=== PATIENT | male | born 1975 | race Caucasian/White ===

== ENCOUNTER 2023-04-13 07:48 | Emergency (ER) | payer OTHER, SELFPAY ==
[2023-04-13 07:55] VITALS: BP 138/82; PULSE 53; RESP 16; TEMP 36.5; O2SAT 98; BMI 27.6
--- NOTE | 2023-04-13 08:24 | ECG_ITS ---
[facility] Test Date: 2023-04-13 Pat Name: ELIJAH WYLIE Department: Room: - Gender: Male [employer]: : 1975 Requested By: [id number] Order Number: [id number] Reading MD: SAEID SOLER Measurements Intervals [place] Rate: 49 P: 53 [place]: 166 QRS: 50 QRSD: 98 T: 57 QT: 468 QTc: 437 Interpretive Statements 1130 Sinus bradycardia 8102 Low QRS voltage in chest leads 9140 abnormal rhythm ECG No previous ECG available for comparison Electronically Signed On 04-14-2023 7:12:32 EST by SAEID SOLER
--- NOTE | 2023-04-13 08:24 | XR_ITS ---
The [address] [address] Patient Name: ELIJAH WYLIE MRN: [id number] date: 1975 Sex: M Assigned Patient Location: ER Current Patient Location: ER Accession/Order Number: [id number] Exam Date: 04/13/2023 08:43 Report Date: 04/13/2023 09:13 At the request of: MILLICENT COREAS Procedure: XR chest 1V EXAM: XR chest 1V HISTORY: . peripheral edema . COMPARISON: None. TECHNIQUE: Single view of the chest FINDINGS: Heart and vascularity are unremarkable. Lungs are free of focal infiltrates. EKG leads overlie the chest. XR/XR chest 1V IMPRESSION: No acute heart or lung disease identified. Electronically authenticated by: TARIQ ROMAN Date: 04/13/2023 09:13
--- NOTE | 2023-04-13 08:24 | ED.GENADUL1 ---
HPI - General Adult General Chief complaint: Extremity Injury, Lower Stated complaint: LOWER EXTREMITY SWELLING TO FEET/LEGS Time Seen by Provider: 04/13/23 08:18 Source: patient Mode of arrival: walk-in Limitations: no limitations History of Present Illness HPI narrative: [age] male presents for swelling in both lower extremities. It started in his feet and now goes up to his knees. He's had it for a few days and it's getting a little bit worse. No shortness of breath. He is not on a diuretic. Related Data Home Medications Medication Instructions Recorded Confirmed alprazolam 2 mg tablet mg 04/13/23 atorvastatin 80 mg tablet mg 04/13/23 diltiazem HCl 120 mg tablet mg 04/13/23 multivitamin with folic acid 400 tab PO 04/13/23 mcg tablet (Tab-A-Brennan) pregabalin 50 mg capsule mg 04/13/23 sucralfate 1 gram tablet 04/13/23 tadalafil 5 mg tablet mg 04/13/23 Previous Rx's Medication Instructions Recorded furosemide 40 mg tablet (Lasix) 40 mg PO DAILY #7 tabs 04/13/23 potassium chloride 20 mEq 20 meq PO DAILY #7 tabs 04/13/23 tablet,extended release(part/cryst) Allergies Allergy/AdvReac Type Severity Reaction Status Date / Time Sulfa (Sulfonamide Allergy Intermediate Verified 04/13/23 08:00 Antibiotics) NSAIDS (Non-Steroidal AdvReac Mild Verified 04/13/23 08:00 Anti-Inflamma bactrim Allergy Intermediate Uncoded 04/13/23 08:00 cecor Allergy Intermediate Uncoded 04/13/23 08:00 Review of Systems ROS Narrative A ten point review of systems is negative except as noted above. PFSH PFSH Social History Smoking status: Current every day smoker Exam Narrative Exam Narrative: Nurses note and vital signs reviewed and patient is not hypoxic. General: The patient appears well and in no apparent distress. Patient is resting comfortably on cart. Skin: Warm, dry, no pallor noted. There is no rash noted. Head: Normocephalic, atraumatic Eye: Normal conjunctiva, no drainage Ears, Nose, Mouth, and Throat: oral mucosa is moist. Nares patent. Cardiovascular: Regular Rate and Rhythm Respiratory: Patient is in no distress, no accessory muscle use, lungs are clear to auscultation, no wheezing, rales or rhonchi Back: non-tender GI: soft, nontender, nondistended Musculoskeletal: peripheral edema present in bilateral lower extremities, most significant in the feet. Pitting edema is present in the pretibial area distally. Neurological: A&O, normal speech Psychiatric: Cooperative Constitutional Vital Signs, click to edit/add: Last Vital Signs Temp 97.7 F 04/13/23 07:55 Pulse 53 L 04/13/23 07:55 Resp 16 04/13/23 07:55 BP 138/82 04/13/23 07:55 Pulse Ox 98 04/13/23 07:55 O2 Del Method Room Air 04/13/23 07:55 Course Vital Signs Vital signs: Vital Signs Temperature 97.7 F 04/13/23 07:55 Pulse Rate 53 L 04/13/23 07:55 Respiratory Rate 16 04/13/23 07:55 Blood Pressure 138/82 04/13/23 07:55 Pulse Oximetry 98 04/13/23 07:55 Oxygen Delivery Method Room Air 04/13/23 07:55 Temperature 97.7 F 04/13/23 07:55 Pulse Rate 53 L 04/13/23 07:55 Respiratory Rate 16 04/13/23 07:55 Blood Pressure 138/82 04/13/23 07:55 Pulse Oximetry 98 04/13/23 07:55 Oxygen Delivery Method Room Air 04/13/23 07:55 Medical Decision Making MDM Narrative Medical decision making narrative: his workup here is negative. He'll be discharged home on Lasix and potassium. He was instructed to elevate his legs and follow-up with his PCP. Treatment diagnosis and follow-up were discussed with the patient. Differential Diagnosis Differential Diagnosis: peripheral edema, acute kidney injury, heart failure Lab Data Lab results reviewed: Yes I reviewed the patient's lab results Labs: Lab Results 04/13/23 Range/Units 08:35 WBC 6.6 (4.0-11.0) 10^3/uL RBC 4.53 L (4.70-6.10) 10^6/uL Hgb 13.5 L (14.0-18.0) g/dL Hct 41.4 L (42.0-54.0) % MCV 91.4 (80.0-94.0) fL MCH 29.8 (25.9-34.0) pg MCHC 32.6 (29.9-35.2) g/dL RDW 17.3 H (11.0-15.0) % Plt Count 148 L (150-450) 10^3/uL MPV 13.4 (9.5-13.5) fL Neut % (Auto) 54.8 (43.0-75.0) % Lymph % (Auto) 30.5 (20.5-60.0) % [place] % (Auto) 7.5 (1.7-12.0) % Eos % (Auto) 5.3 (0.9-7.0) % Baso % (Auto) 1.7 (0.2-2.0) % Neut # (Auto) 3.6 (1.4-6.5) 10^3/uL Lymph # (Auto) 2.0 (1.2-3.8) 10^3/uL [place] # (Auto) 0.5 (0.3-0.8) 10^3/uL Eos # (Auto) 0.4 (0.0-0.7) 10^3/uL Baso # (Auto) 0.1 (0.0-0.1) 10^3/uL Abs Immat Gran (auto) 0.01 (0.00-0.03) 10^3/uL Imm/Tot Granulo (auto) 0.2 (0.0-0.5) % Sodium 144 (136-145) mmol/L Potassium 4.1 (3.5-5.1) mmol/L Chloride 107 (98-107) mmol/L Carbon Dioxide 29.0 (21.0-32.0) mmol/L Anion Gap 12.1 BUN 4.0 L (7.0-18.0) mg/dL Creatinine 0.66 L (0.70-1.30) mg/dL Est GFR ( Amer) >60 (>=60) Est GFR (Non-Af Amer) >60 (>=60) BUN/Creatinine Ratio 6.1 Glucose 100 (74-106) mg/dL Calcium 8.2 L (8.5-10.1) mg/dL Imaging Data Chest x-ray: Radiologist's impression: Procedure: XR chest 1V EXAM: XR chest 1V HISTORY: . peripheral edema . COMPARISON: None. TECHNIQUE: Single view of the chest FINDINGS: Heart and vascularity are unremarkable. Lungs are free of focal infiltrates. EKG leads overlie the chest. IMPRESSION: No acute heart or lung disease identified. Electronically authenticated by: TARIQ ROMAN Date: 04/13/2023 09:13 ECG Data Attestation: I personally reviewed and interpreted this ECG as follows: (EKG on my interpretation shows sinus rhythm with a rate of 49) Discharge Plan Discharge Chief Complaint: Extremity Injury, Lower Clinical Impression: Edema, peripheral Patient Disposition: Home, Self-Care Time of Disposition Decision: 10:11 Condition: Good Mode of Transportation: Private Vehicle Prescriptions / Home Meds: New furosemide [Lasix] 40 mg tablet 40 mg PO DAILY Qty: 7 0RF potassium chloride 20 mEq tablet,ER particles/crystals 20 meq PO DAILY Qty: 7 0RF No Action atorvastatin 80 mg tablet sucralfate 1 gram tablet diltiazem HCl 120 mg tablet alprazolam 2 mg tablet tadalafil 5 mg tablet pregabalin 50 mg capsule multivitamin with folic acid [Tab-A-Brennan] 400 mcg tablet PO Instructions: Leg Edema (ED) Additional Instructions: Elevate your legs when at rest Call your family doctor for follow-up Stand Alone Forms: Portal Instructions Referrals: MENG CARDENAS [Primary Care Provider] - 1 week
[2023-04-13 08:49] LABS: Basophils Absolute Auto 0.1 10^3/uL (0.0-0.1); Basophils Percent Auto 1.7 % (0.2-2.0); Eosinophils Absolute Auto 0.4 10^3/uL (0.0-0.7); Eosinophils Percent Auto 5.3 % (0.9-7.0); Hematocrit 41.4 % (42.0-54.0); Hemoglobin 13.5 g/dL (14.0-18.0); Immature Granulocytes Abs Auto 0.01 10^3/uL (0.00-0.03); Immature Granulocytes Pct Auto 0.2 % (0.0-0.5); Lymphocytes Percent Auto 30.5 % (20.5-60.0); Mean Corpuscular HGB Conc 32.6 g/dL (29.9-35.2); Mean Corpuscular Hemoglobin 29.8 pg (25.9-34.0); Mean Corpuscular Volume 91.4 fL (80.0-94.0); Mean Platelet Volume 13.4 fL (9.5-13.5); Monocytes Absolute Auto 0.5 10^3/uL (0.3-0.8); Monocytes Percent Auto 7.5 % (1.7-12.0); Neutrophils Absolute Auto 3.6 10^3/uL (1.4-6.5); Neutrophils Percent Auto 54.8 % (43.0-75.0); Platelet Count 148 10^3/uL (150-450); Red Blood Count 4.53 10^6/uL (4.70-6.10); Red Cell Distribution Width 17.3 % (11.0-15.0); White Blood Count 6.6 10^3/uL (4.0-11.0)
[2023-04-13 09:00] LABS: Anion Gap 12.1; BUN Creatinine Ratio 6.1; Calcium 8.2 mg/dL (8.5-10.1); Chloride 107 mmol/L (98-107); Estimated GFR (African America >60 (>=60); Estimated GFR (Non-African Ame >60 (>=60); Glucose 100 mg/dL (74-106); Potassium 4.1 mmol/L (3.5-5.1); Sodium 144 mmol/L (136-145)
== END 2023-04-13 10:33 | disposition home or self-care (01) ==
PROVIDERS: Emergency Provider Emergency Medicine; PCP Family Medicine
DX: R60.9 Edema, unspecified (principal); Z79.899 Other long term (current) drug therapy; F17.210 Nicotine dependence, cigarettes, uncomplicated
CPT/HCPCS: 36415; 71045; 80048; 85025; 93005; 99285

== ENCOUNTER 2023-10-07 15:13 | Emergency (ER) | payer OTHER, SELFPAY ==
[2023-10-07 15:31] VITALS: BP 153/95; PULSE 51; TEMP 36.9; O2SAT 97
--- NOTE | 2023-10-07 15:52 | CT_ITS ---
The [address] [address] Patient Name: ELIJAH WYLIE MRN: [id number] date: 1975 Sex: M Assigned Patient Location: ER Current Patient Location: ED.MAIN Accession/Order Number: [id number] Exam Date: 10/07/2023 18:00 Report Date: 10/07/2023 19:04 At the request of: MILLICENT COREAS Procedure: CT abdomen pelvis w con EXAM: CT scan of the abdomen and pelvis using 98 mL of IV iodinated contrast. Dose reduction technique used: Automated exposure control and/or adjustment of the mA and/or kV according to patient size and/or use of iterative reconstruction technique. REASON FOR EXAM: Upper abdominal pain, blood in stool COMPARISON: None FINDINGS: Gastric bypass. Normal appendix. No free fluid in the abdomen or pelvis. No free intraperitoneal air. No dilated or thickened loops of small bowel or colon. No hydronephrosis or obstructing renal or ureteral calculi. Liver, pancreas, spleen, bilateral kidneys, and bilateral adrenal glands are otherwise unremarkable. No lymphadenopathy in the abdomen or pelvis. Remainder unremarkable. CT/CT abdomen pelvis w con IMPRESSION: No acute abnormalities in the abdomen or pelvis. Electronically authenticated by: SANDEE LAURA Date: 10/07/2023 19:04
[2023-10-07 16:53] LABS: Basophils Absolute Auto 0.1 10^3/uL (0.0-0.1); Basophils Percent Auto 1.2 % (0.2-2.0); Eosinophils Absolute Auto 0.2 10^3/uL (0.0-0.7); Eosinophils Percent Auto 2.8 % (0.9-7.0); Hematocrit 40.6 % (42.0-54.0); Hemoglobin 13.4 g/dL (14.0-18.0); Immature Granulocytes Abs Auto 0.02 10^3/uL (0.00-0.03); Immature Granulocytes Pct Auto 0.2 % (0.0-0.5); Lymphocytes Percent Auto 35.1 % (20.5-60.0); Mean Platelet Volume 12.2 fL (9.5-13.5); Monocytes Absolute Auto 0.7 10^3/uL (0.3-0.8); Monocytes Percent Auto 7.9 % (1.7-12.0); Neutrophils Absolute Auto 4.5 10^3/uL (1.4-6.5); Neutrophils Percent Auto 52.8 % (43.0-75.0); Platelet Count 171 10^3/uL (150-450); Red Blood Count 4.46 10^6/uL (4.70-6.10); Red Cell Distribution Width 14.7 % (11.0-15.0); White Blood Count 8.6 10^3/uL (4.0-11.0)
[2023-10-07 17:14] LABS: BUN Creatinine Ratio 16.2; Calcium 8.7 mg/dL (8.5-10.1); Carbon Dioxide 29.9 mmol/L (21.0-32.0); Chloride 102 mmol/L (98-107); Estimated GFR (African America >60 (>=60); Estimated GFR (Non-African Ame >60 (>=60); Glucose 92 mg/dL (74-106); Potassium 3.9 mmol/L (3.5-5.1); Sodium 140 mmol/L (136-145)
--- NOTE | 2023-10-07 17:25 | ED_ITS ---
HPI - GI Bleed General Chief complaint: GI Bleed Stated complaint: passing blood clots in stool Time Seen by Provider: 10/07/23 15:43 Source: patient Mode of arrival: walk-in Limitations: no limitations History of Present Illness HPI Narrative: 48-year-old male presents to the emergency department for passing blood in his stool. He complains of very minimal upper abdominal pain. He is worried about an ulcer. He states that about 10 or 11 years ago he had gastric bypass surgery and subsequently he has had problems with ulcers. He states he cannot find a specialist to take care of him. He states that the surgeon who did his surgery at the [facility] retired and his replacement left as well. The blood is dark in color. He has not had any vomiting including no hematemesis. No fever or injury. Related Data Home Medications ?Medication ?Instructions ?Recorded ?Confirmed alprazolam 2 mg tablet mg 04/13/23 atorvastatin 80 mg tablet mg 04/13/23 diltiazem HCl 120 mg tablet mg 04/13/23 multivitamin with folic acid 400 tab PO 04/13/23 mcg tablet (Tab-A-Brennan) pregabalin 50 mg capsule mg 04/13/23 sucralfate 1 gram tablet 04/13/23 tadalafil 5 mg tablet mg 04/13/23 Previous Rx's ?Medication ?Instructions ?Recorded furosemide 40 mg tablet (Lasix) 40 mg PO DAILY #7 tabs 04/13/23 potassium chloride 20 mEq 20 meq PO DAILY #7 tabs 04/13/23 tablet,extended release(part/cryst) Allergies Allergy/AdvReac Type Severity Reaction Status Date / Time Sulfa (Sulfonamide Allergy Intermediate Verified 04/13/23 08:00 Antibiotics) NSAIDS (Non-Steroidal AdvReac Mild Verified 04/13/23 08:00 Anti-Inflamma bactrim Allergy Intermediate Uncoded 04/13/23 08:00 cecor Allergy Intermediate Uncoded 04/13/23 08:00 Review of Systems ROS Narrative A ten point review of systems is negative except as noted above. PFSH PFSH Social History Smoking status: Current every day smoker Exam Narrative Exam Narrative: Nurses note and vital signs reviewed and patient is not hypoxic. General: The patient appears well and in no apparent distress. Patient is resting comfortably on cart. Skin: Warm, dry, no pallor noted. There is no rash noted. Head: Normocephalic, atraumatic Eye: Normal conjunctiva, no drainage Ears, Nose, Mouth, and Throat: oral mucosa is moist. Nares patent. Cardiovascular: Regular Rate and Rhythm Respiratory: Patient is in no distress, no accessory muscle use, lungs are clear to auscultation, no wheezing, rales or rhonchi Back: non-tender GI: Minimal tenderness to palpation in the left upper quadrant without mass or distention. No lower abdominal tenderness. Musculoskeletal: The patient has no evidence of calf tenderness, no pitting edema, symmetrical pulses noted bilaterally Neurological: A&O, normal speech Psychiatric: Cooperative Constitutional Vital Signs, click to edit/add: Last Vital Signs Temp 98.4 F 10/07/23 15:31 Pulse 51 L 10/07/23 15:31 Resp 17 10/07/23 15:31 BP 153/95 H 10/07/23 15:31 Pulse Ox 97 10/07/23 15:31 Course Vital Signs Vital signs: Vital Signs Temperature 98.4 F 10/07/23 15:31 Pulse Rate 51 L 10/07/23 15:31 Respiratory Rate 17 10/07/23 15:31 Blood Pressure 153/95 H 10/07/23 15:31 Pulse Oximetry 97 10/07/23 15:31 Temperature 98.4 F 10/07/23 15:31 Pulse Rate 51 L 10/07/23 15:31 Respiratory Rate 17 10/07/23 15:31 Blood Pressure 153/95 H 10/07/23 15:31 Pulse Oximetry 97 10/07/23 15:31 MDM - GI Bleed MDM Narrative Medical decision making narrative: Blood tests are essentially normal. CT scan is pending and the patient is si gned out to Dr. Webster at change of shift. Differential Diagnosis Differential diagnosis: Likely esophageal varices, gastritis, Upper gastr ointestinal hemorrhage, Lower gastrointestinal hemorrhage and hematochezia Lab Data Attestation: I reviewed the patient's lab results. Labs: Lab Results 10/07/23 Range/Units 16:46 WBC 8.6 (4.0-11.0) 10^3/uL RBC 4.46 L (4.70-6.10) 10^6/uL Hgb 13.4 L (14.0-18.0) g/dL Hct 40.6 L (42.0-54.0) % MCV 91.0 (80.0-94.0) fL MCH 30.0 (25.9-34.0) pg MCHC 33.0 (29.9-35.2) g/dL RDW 14.7 (11.0-15.0) % Plt Count 171 (150-450) 10^3/uL MPV 12.2 (9.5-13.5) fL Neut % (Auto) 52.8 (43.0-75.0) % Lymph % (Auto) 35.1 (20.5-60.0) % [place] % (Auto) 7.9 (1.7-12.0) % Eos % (Auto) 2.8 (0.9-7.0) % Baso % (Auto) 1.2 (0.2-2.0) % Neut # (Auto) 4.5 (1.4-6.5) 10^3/uL Lymph # (Auto) 3.0 (1.2-3.8) 10^3/uL [place] # (Auto) 0.7 (0.3-0.8) 10^3/uL Eos # (Auto) 0.2 (0.0-0.7) 10^3/uL Baso # (Auto) 0.1 (0.0-0.1) 10^3/uL Abs Immat Gran (auto) 0.02 (0.00-0.03) 10^3/uL Imm/Tot Granulo (auto) 0.2 (0.0-0.5) % Sodium 140 (136-145) mmol/L Potassium 3.9 (3.5-5.1) mmol/L Chloride 102 (98-107) mmol/L Carbon Dioxide 29.9 (21.0-32.0) mmol/L Anion Gap 12.0 BUN 12.0 (7.0-18.0) mg/dL Creatinine 0.74 (0.70-1.30) mg/dL Est GFR ( Amer) >60 (>=60) Est GFR (Non-Af Amer) >60 (>=60) BUN/Creatinine Ratio 16.2 Glucose 92 (74-106) mg/dL Calcium 8.7 (8.5-10.1) mg/dL Discharge Plan Discharge Patient Disposition: Still a Patient
[2023-10-07] MEDS: PANTOPRAZOLE SODIUM 40 MG VIAL IV (18:59)
[2023-10-07 19:00] VITALS: BP 141/84; PULSE 45; O2SAT 97
[2023-10-07] MEDS: MORPHINE SULFATE 4 MG/ML VIAL IV (19:00)
[2023-10-07 21:17] VITALS: BP 136/66; PULSE 47; TEMP 36.6; O2SAT 97
== END 2023-10-07 21:18 | disposition home or self-care (01) ==
PROVIDERS: Emergency Medicine; Emergency Provider Internal Medicine; PCP Family Medicine
DX: K92.2 Gastrointestinal hemorrhage, unspecified (principal); Z98.84 Bariatric surgery status
CPT/HCPCS: 36415; 74177; 80048; 85025; 96374; 96375; 99285; Q9967

== ENCOUNTER 2023-11-13 11:26 | Emergency (ER) | payer OTHER, SELFPAY ==
[2023-11-13 11:32] VITALS: BP 141/90; PULSE 55; TEMP 36.8; O2SAT 98; BMI 27.2
--- OUTSIDE RECORDS SUMMARY | 2023-11-13 11:35 | XMS_ITS ---
Patient Summarization (C-CDA 2.1 CCD) Created on: November 13, 2023 ELIJAH WYLIE : 1975 Sex: Male Author Organization Sample organization Care Team Providers Care Chain Splitter Name Role Phone ALAEDEEN, FILI Unavailable Unavailable ALAEDEEN, FILI Unavailable Unavailable Reid, [facility] Primary Care Provider Reid, [facility] Primary Care Provider Reid, [facility] Primary Care Provider Unavailabl e Reid, [facility] Primary Care Provider Unavailabl e PROVIDER, UNKNOWN Attending Unavailable PROVIDER, UNKNOWN Admitting Unavailable REID, [facility] Primary Care Physician Reid, [facility] Primary Care Provider Reid, [facility] Primary Care Provider Unavailabl e Reid, [place] Unavailable Reid, [facility] Primary Care Provider Unavailabl e Unavailable Unavailable Reid, [facility] Primary Care Provider Unavailabl e REID, [facility] Primary Care Unavailable VICKI DEVI Attending Unavailable REID, [facility] Primary Care Unavailable KARUNA SHIN Attending Unavailable REID, [facility] Primary Care Unavailable ELIJAH WALKER Attending Unavailab le REID, [facility] Primary Care Unavailable REID, [facility] Primary Care Unavailable TARIQ GONZALEZ Attending Unavailable REID, [facility] Primary Care Unavailable KARUNA SHIN Attending Unavailable REID, [facility] Primary Care Unavailable KARUNA SHIN Attending Unavailable REID, [facility] Primary Care Unavailable VICKI DEVI Attending Unavailable REID, [facility] Primary Care Unavailable ELIJAH WALKER Attending Unavailab le REID, [facility] Primary Care Unavailable Reid DO, Meng Parsons Primary Care Provider Cole JANIC, Shanthi Unavailable [phone] Reid, Meng Flores Primary Care Provider Unavailliane Kirkland OTR/L, Evelin Unavailable Annamarie MERLOS, Lizandro Francisco Unavailable [phone] Garo MERLOS, Allyson Unavailable REID, [facility] Primary Care Unavailable JAZMINE ESTRELLA Referring Unavailab le REID, [facility] Primary Care Unavailable JAZMINE ESTRELLA Referring Unavailab le DELORES, JAZMINE DON Referring Unavailab le DELORES, JAZMINE DON Attending Unavailab le REID, [facility] PARSONS Primary Care Unavailable REID, MENG Flores Primary Care Unavailable COLE, SHANTHI Referring Unavailable REID, MENG Flores Primary Care Unavailable MISGigi, DR GLASS Primary Care Unavailable VANE Sanchez, DR SMITH Consulting Unavailable MILLICENT CORESA Attending Unavailable MILLICENT COREAS Admitting Unavailable MILLICENT COREAS Consulting Unavailable ODETTE LOUIS Consulting Unavailable TARIQ BRICE Consulting Unavailable Reid, DO Meng Flores. Primary Care Provider DO Theresa Moon Attending Provider [phone] MD Shereen Iyer Jr Emergency Provider MD Huy Dumont Admit Provider MD Huy Dumont Attending Provider [phone] Matt Motrip Attending Unavailable Traboulssi, Mourhaf Attending Unavailable Traboulkerryi, Mourhaf Attending Unavailable Traboulnargis, Mourhaf Attending Unavailable Matt, Master Attending Unavailable Phoenix Chavez Unavailable MD Nano Gates Attending Provider Madeline Fisher Unavailable MD Phoenix Chavez Attending Provider MD Phoenix Chavez Attending Provider Dimas Ferrer Unavailable THERESA MOON Attending Unavailable Phoenix Chavez Attending Unavailable Meng Mathews. Primary Care Unavailable Phoenix Chavez Admitting Unavailable Theresa Moon Admitting Unavailab Theresa Salvador Attending Unavailab Meng Dhillon. Primary Care Unavailable Phoenix Chavez Attending Unavailable Huy Dumont Admitting Unavailab Megan Adames Consulting Unavailable Meng Mathews. Primary Care Unavailable Benito Crawford Consulting Unavailable Tanya Hodge Consulting Unavailable Carlton Cote Consulting Unavail able Master Siegel Consulting Unavailable Rafa Saenz Consulting Unavailab Echo Byrd Consulting Unavailable Kaylie Jolley Consulting Unavailable Everardo Vargas Consulting Unavailab Nohemy Ramires Consulting Unavailable Odette Oden Consulting Unavailable Nallely Iqbal Consulting Unavailable Phoenix Chavez Consulting Unavailable Allergies Allergy Classification Reported Allergen(s) Allergy Type Date of Onset Reaction(s) Facility Cephalosporins (antibiotic) (5 sources) Cefaclor Drug Allergy Anaphylaxis, Hives [facility] NSAIDs (5 sources) NSAIDs Drug Allergy Other (See Comments) [facility] Sulfamethoxazole / Trimethoprim (5 sources) Sulfamethoxazole / Trimethoprim Drug Allergy [facility] Sulfonamides (antibiotic) (5 sources) Sulfonamides (Antibiotic) Drug Allergy Rash [facility] (20 sources) cefaclor; Translations: [CEFACLOR] Drug Allergy Anaphylaxis, Hives, Itching, Anaphylactic Shock [facility] Repository (7 sources) NSAIDs; Translations: [NSAIDS (NON-STEROIDAL ANTI-INFLAMMATORY DRUG)] Propensity to adverse reactions to drug (disorder) Other: See Comments [facility] Repository (20 sources) sulfamethoxazole / trimethoprim; Translations: [SULFAMETHOXAZOLE-T RIMETHOPRIM] Drug Allergy Rash, Other: See Comments [facility] Repository (12 sources) Sulfonamides (Antibiotic); Translations: [SULFA (SULFONAMIDE ANTIBIOTICS)] Propensity to adverse reactions to drug (disorder) 09-14-2 013 Rash [facility] Repository (20 sources) NSAIDs; Translations: [NSAIDS] Propensity to adverse reactions to drug Other (See Comments) [place] (20 sources) Sulfonamides (Antibiotic); Translations: [SULFA ANTIBIOTICS] Propensity to adverse reactions to drug 016 Rash [place], [place] (3 sources) SULFAMETHOXAZOLE W-TRIMETHOPRIM; Translations: [SULFAMETHOXAZOLE W-TRIMETHOPRIM] Propensity to adverse reactions to drug (disorder) [facility] Repository (20 sources) Sulfamethoxazole / Trimethoprim; Translations: [sulfamethoxazole-t rimethoprim] Drug Allergy rash [employer] Other (3 sources) Sulfonamides (Antibiotic); Translations: [sulfa drugs] Drug allergy Unknown (qualifier value) [facility] (20 sources) Acetaminophen / HYDROcodone Drug Allergy headaches [facility] Other (20 sources) Cefaclor; Translations: [Ceclor] Drug Allergy 023 rash [facility] Repository (2 sources) NSAIDs; Translations: [NSAIDs] Allergy to drug (finding) [facility] 250 DO Work Phone: (20 sources) Non-steroidal anti-inflammatory agent Drug allergy 016 Other (See Comments) [employer] Other (4 sources) Sulfonamides (Antibiotic) Propensity to adverse reactions to drug 016 Rash [facility] Work Phone: (2 sources) Non-steroidal anti-inflammatory agent Propensity to adverse reactions to drug [address] [facility] (1 source) Sulfamethoxazole / Trimethoprim Drug Allergy [facility] Repository (1 source) Sulfonamides (Antibiotic) Drug allergy (disorder) [facility] Repository (6 sources) Sulfamethoxazole; Translations: [sulfamethoxazole] Drug Allergy skin reaction [facility] (6 sources) Trimethoprim; Translations: [trimethoprim] Drug Allergy 09-11-2 023 skin reaction [facility] (6 sources) NSAIDS (Non-Steroidal Anti-Inflamma; Translations: [NSAIDS (Non-Steroidal Anti-Inflamma] Propensity to adverse reactions Unknown Reaction [facility] (1 source) Acetaminophen Drug Allergy [facility] Repository (1 source) HYDROcodone Drug Allergy 024 [facility] Repository Encounters Encounter Date Encounter Type Care Provider Facility Start: 09-13-2023 End: 09-13-2023 ambulatory THERESA MOON Not Available Start: 06-27-2023 End: 06-27-2023 ambulatory Meng Reid Other [employer] Other Start: 06-27-2023 Telephone encounter Meng Reid [facility] Start: 06-06-2023 End: 06-06-2023 ambulatory Meng Reid Other [employer] Other Start: 06-06-2023 Telephone encounter Meng Reid [facility] Start: 05-26-2023 End: 05-26-2023 ambulatory Meng Reid Other [employer] Other Start: 05-26-2023 Telephone encounter Meng Reid [facility] Start: 05-17-2023 End: 05-17-2023 ambulatory Meng Reid Other [employer] Other Start: 05-17-2023 Telephone encounter Meng Reid [facility] Start: 05-14-2023 Letter encounter Evelin Giang do OTR/L Work Phone: [facility] Start: 05-05-2023 End: 05-05-2023 ambulatory Dimas Ferrer Other [employer] Other Start: 05-05-2023 Office outpatient vi sit 15 minutes Dimas Ferrer [facility] Start: 04-14-2023 (PROC) PROCEDURE Dimas [facility] Start: 04-14-2023 End: 04-14-2023 ambulatory Dimas Ferrer Other [employer] Other Start: 04-13-2023 End: 04-13-2023 ambulatory Meng Reid Other [employer] Other Start: 04-13-2023 Telephone encounter Meng Reid [facility] Start: 04-04-2023 End: 04-04-2023 ambulatory Dimas Ferrer Other [employer] Other Start: 04-04-2023 Office consultation new/estab patient 60 min Dimas Ferrer [facility] Start: 04-04-2023 Telephone encounter Dimas Ferrer [facility] Start: 03-31-2023 End: 03-31-2023 ambulatory Phoenix Chavez Other [employer] Other Start: 03-31-2023 Postop follow up vis it related to original px Phoenix Chavez [facility] Start: 03-08-2023 End: 03-08-2023 ambulatory Meng Reid Other [employer] Other Start: 03-08-2023 Telephone encounter Meng Reid [facility] Start: 03-03-2023 End: 03-03-2023 ambulatory Meng Reid Other [employer] Other Start: 03-03-2023 Telephone encounter Meng Reid [facility] Start: 02-15-2023 End: 02-15-2023 ambulatory Phoenix Chavez Facility:[facility] Start: 02-15-2023 End: 02-15-2023 ambulatory DO Meng MLaura Mathews Work Phone: [facility] Work Phone: Start: 02-15-2023 End: 02-15-2023 Patient encounter procedure DO Meng Reid Work Phone: [facility] [place] Work Phone: Start: 02-14-2023 End: 02-14-2023 ambulatory Phoenix Chavez Other [employer] Other Start: 02-14-2023 Telephone encounter Phoenix Chavez [facility] Start: 02-10-2023 End: 02-10-2023 ambulatory Madeline Fisher Other [employer] Other Start: 02-10-2023 Postop follow up vis it related to original px Madeline Natalia [facility] Start: 02-09-2023 End: 02-09-2023 ambulatory Meng Reid Other [employer] Other Start: 02-09-2023 Telephone encounter Meng Reid [facility] Start: 02-08-2023 End: 02-08-2023 ambulatory Phoenix Chavez Other [employer] Other Start: 02-08-2023 Telephone encounter Phoenix Chavez [facility] Start: 02-07-2023 End: 02-07-2023 ambulatory Meng Reid Other [employer] Other Start: 02-07-2023 Telephone encounter Meng Reid [facility] Start: 02-03-2023 End: 02-03-2023 ambulatory Meng Reid Other [employer] Other Start: 02-03-2023 Telephone encounter Meng Reid [facility] Start: 01-28-2023 End: 01-28-2023 ambulatory Meng Reid Other [employer] Other Start: 01-28-2023 Telephone encounter Meng Reid [facility] Start: 01-27-2023 End: 01-27-2023 ambulatory Mourhaf Traboulssi Facility:[id number] Start: 01-27-2023 Patient encounter procedure Phoenix Chavez [facility] Start: 01-26-2023 ambulatory Mourhaf Traboulssi Faci lity:[id number] Start: 01-25-2023 Patient encounter procedure Phoenix Chavez [facility] Start: 01-25-2023 ambulatory Mourhaf Traboulssi Faci lity:[id number] Start: 01-25-2023 End: 01-25-2023 ambulatory Mourhaf Traboulssi Facility:[id number] Start: 01-25-2023 End: 01-27-2023 Evaluation and management of inpatient Phoenix Chavez Facility:[facility] Start: 01-24-2023 End: 01-27-2023 Evaluation and management of inpatient DO Meng Reid Work Phone: [facility] [place] [facility] Work Phone: Start: 01-24-2023 observation encounter DO Meng M. Reid Work Phone: [facility] Work Phone: Start: 01-24-2023 End: 01-24-2023 ambulatory DO Meng M. Reid Work Phone: [facility] Work Phone: Start: 01-24-2023 End: 01-24-2023 Patient encounter procedure DO Meng Reid Work Phone: [facility] [place] Work Phone: Start: 01-06-2023 End: 01-06-2023 ambulatory Meng Reid Other [employer] Other Start: 01-06-2023 Telephone encounter Meng Reid [facility] Start: 12-17-2022 Refill Meng limon DO Work Phone: Pediatric Urology Comment on above: Refill Request Start: 12-16-2022 Refill Jazmine Estrella DO Work Phone: Cardiology Comment on above: Refill Request Start: 12-02-2022 End: 12-02-2022 ambulatory Meng Reid Other [employer] Other Start: 12-02-2022 Telephone encounter Meng Reid [facility] Start: 11-02-2022 End: 11-02-2022 ambulatory Meng Reid Other [employer] Other Start: 11-02-2022 Telephone encounter Meng Reid [facility] Start: 10-27-2022 End: 10-27-2022 ambulatory Meng Reid Other [employer] Other Start: 10-27-2022 Office outpatient vi sit 25 minutes Meng Reid [facility] Start: 10-12-2022 End: 10-12-[address] DOCTOR WARD Facility: Start: 09-15-2022 End: 09-15-2022 ambulatory Meng Reid Other [employer] Other Start: 09-15-2022 Telephone encounter Meng Reid [facility] Start: 09-08-2022 End: 09-08-2022 Emergency department patient visit [facility] Start: 09-08-2022 End: 09-08-2022 Emergency department patient visit [facility] Comment on above: Laceration of forehe ad, initial encounter (Primary Dx); Acute alcoholic intoxication without complication (HCC); Anxiety state Start: 09-01-2022 End: 09-01-2022 ambulatory Meng Reid Other [employer] Other Start: 09-01-2022 Telephone encounter Meng Reid [facility] Start: 08-11-2022 Letter encounter Evelin Giang do OTR/L Work Phone: [facility] Start: 08-04-2022 End: 08-05-2022 ambulatory SHANTHI [facility] Start: 08-04-2022 End: 08-04-2022 Subsequent hospital visit by physician Lorraine Roland PT [facility] Comment on above: Arrived Start: 07-27-2022 End: 07-27-2022 ambulatory Meng Reid Other [employer] Other Start: 07-27-2022 Office outpatient vi sit 15 minutes Meng Reid [facility] Start: 07-21-2022 End: 07-21-2022 ambulatory MENG PARSONS REID Facility:[facility] Start: 07-21-2022 End: 07-21-2022 Patient encounter procedure Pharmacy Resident [facility] Work Phone: Cardiology Comment on above: Primary hypertension ; Mixed hyperlipidemia; Coronary artery disease involving chinik coronary artery of chinik heart without angina pectoris; ST elevation myocardial infarction involving right coronary artery (HCC); S/P right coronary artery (RCA) stent placement Start: 07-16-2022 End: 07-16-2022 ambulatory Meng Reid Other [employer] Other Start: 07-16-2022 Telephone encounter Meng Reid [facility] Start: 07-15-2022 End: 07-15-2022 ambulatory Meng Reid Other [employer] Other Start: 07-15-2022 Telephone encounter Meng Reid [facility] Start: 06-24-2022 End: 06-24-2022 ambulatory Meng Reid Other [employer] Other Start: 06-24-2022 Telephone encounter Meng Reid [facility] Start: 06-10-2022 End: 06-10-2022 ambulatory Meng Reid Other [employer] Other Start: 06-10-2022 Telephone encounter Meng Reid [facility] Start: 05-26-2022 End: 05-26-2022 ambulatory Meng Reid Other [employer] Other Start: 05-26-2022 Telephone encounter Meng Reid [facility] Start: 05-20-2022 End: 05-20-2022 ambulatory Meng Reid Other [employer] Other Start: 05-20-2022 Telephone encounter Meng Reid [facility] Start: 05-18-2022 End: 05-18-2022 ambulatory Meng Reid Other [employer] Other Start: 05-18-2022 Telephone encounter Meng Reid [facility] Start: 05-14-2022 End: 05-14-2022 ambulatory Meng Reid Other [employer] Other Start: 05-14-2022 Telephone encounter Meng Reid [facility] Start: 05-13-2022 End: 05-13-2022 Patient encounter procedure Jazmine Estrella DO Work Phone: Cardiology Comment on above: Coronary artery dise ase involving chinik coronary artery of chinik heart without angina pectoris (Primary Dx); Primary hypertension; Mixed hyperlipidemia; ST elevation myocardial infarction involving right coronary artery (HCC); S/P right coronary artery (RCA) stent placement Start: 05-13-2022 End: 05-13-2022 ambulatory MENG PARSONS REID Facility:[facility] Start: 05-04-2022 End: 05-04-2022 ambulatory Meng Reid Other [employer] Other Start: 05-04-2022 Office outpatient vi sit 25 minutes Meng Redi [facility] Start: 05-04-2022 Telephone encounter Meng Reid [facility] Start: 04-13-2022 End: 04-13-2022 ambulatory Meng Reid Other [employer] Other Start: 04-13-2022 Telephone encounter Meng Reid [facility] Start: 04-05-2022 End: 04-05-2022 ambulatory Meng Reid Other [employer] Other Start: 04-05-2022 Telephone encounter Meng Reid [facility] Start: 03-25-2022 End: 03-25-2022 ambulatory Meng Reid Other [employer] Other Start: 03-25-2022 Telephone encounter Meng Reid [facility] Start: 03-23-2022 End: 03-23-2022 Emergency department patient visit MENG M REID [facility] Start: 03-23-2022 End: 03-23-2022 Emergency department patient visit Vicki Devi DO Work Phone: [facility] ED Comment on above: Lumbar herniated dis c (Primary Dx); Injury of head, initial encounter; Cervical sprain, initial encounter; Sprain of right shoulder, unspecified shoulder sprain type, initial encounter Start: 02-15-2022 ambulatory Jeffreynamratagorge Marionargis Faci lity: Start: 02-02-2022 End: 02-02-2022 ambulatory Meng Reid Other [employer] Other Start: 02-02-2022 Telephone encounter Meng Reid [facility] Start: 01-28-2022 End: 01-28-2022 ambulatory Meng Reid Other [employer] Other Start: 01-28-2022 Telephone encounter Meng Reid [facility] Start: 01-27-2022 End: 01-27-2022 ambulatory Meng Reid Other [employer] Other Start: 01-27-2022 Office outpatient vi sit 25 minutes Meng Reid [facility] Start: 01-21-2022 End: 01-21-2022 ambulatory Meng Reid Other [employer] Other Start: 01-21-2022 Telephone encounter Meng Reid [facility] Start: 01-12-2022 End: 01-12-2022 ambulatory Meng Reid Other [employer] Other Start: 01-12-2022 Telephone encounter Meng Reid [facility] Start: 01-07-2022 End: 01-07-2022 ambulatory Meng Reid Other [employer] Other Start: 01-07-2022 Telephone encounter Meng Reid [facility] Start: 12-21-2021 Rx Renewal Master harvey MD Work Phone: [facility] 250 DO Work Phone: Start: 12-14-2021 Rx Renewal Master harvey MD Work Phone: [facility] 250 DO Work Phone: Start: 12-08-2021 End: 12-08-2021 ambulatory Meng Reid Other [employer] Other Start: 12-08-2021 Telephone encounter Meng Reid [facility] Start: 12-02-2021 End: 12-02-2021 Emergency department patient visit MENG M REID [facility] Start: 12-02-2021 End: 12-02-2021 Emergency department patient visit Karuna Shin MD Work Phone: [facility] ED Comment on above: Contusion of right k nee, initial encounter (Primary Dx); Acute pain of right knee Start: 11-11-2021 End: 11-11-2021 ambulatory Meng Reid Other [employer] Other Start: 11-11-2021 Telephone encounter Meng Reid [facility] Start: 11-09-2021 End: 11-09-2021 ambulatory Meng Reid Other [employer] Other Start: 11-09-2021 Telephone encounter Meng Reid [facility] Start: 11-03-2021 End: 11-03-2021 ambulatory Meng Reid Other [employer] Other Start: 11-03-2021 Telephone encounter Meng Reid [facility] Start: 10-28-2021 End: 10-28-2021 ambulatory Meng Reid Other [employer] Other Start: 10-28-2021 Office outpatient vi sit 25 minutes Meng Reid [facility] Start: 10-23-2021 End: 10-23-2021 Emergency department patient visit MENG M REID [facility] Start: 10-23-2021 End: 10-23-2021 Emergency department patient visit Elijah Walker DO Work Phone: [facility] ED Comment on above: Closed head injury, initial encounter (Primary Dx); Lumbar transverse process fracture, closed, initial encounter (HCC) Start: 09-23-2021 End: 09-23-2021 Emergency department patient visit [facility] Start: 09-23-2021 End: 09-23-2021 Emergency department patient visit [facility] ED Comment on above: Contusion of right h and, initial encounter (Primary Dx) Start: 09-11-2021 End: 09-11-2021 ambulatory Meng Reid Other [employer] Other Start: 09-11-2021 Telephone encounter Meng Reid [facility] Start: 09-08-2021 End: 09-08-2021 Emergency department patient visit [facility] Start: 09-08-2021 End: 09-08-2021 Emergency department patient visit Tariq Gonzalez MD Work Phone: [facility] Comment on above: Chest pain, unspecif ied type (Primary Dx) Start: 08-26-2021 End: 08-26-2021 ambulatory Meng Reid Other [employer] Other Start: 08-26-2021 Telephone encounter Meng Reid [facility] Start: 08-13-2021 End: 08-13-2021 ambulatory Meng Reid Other [employer] Other Start: 08-13-2021 Telephone encounter Meng Reid [facility] Start: 08-03-2021 End: 08-03-2021 Patient encounter procedure Crissy Mccain [facility] Start: 07-24-2021 End: 07-24-2021 ambulatory Meng Reid Other [employer] Other Start: 03-11-2022 Telephone encounter Meng Reid [facility] Start: 07-10-2021 End: 07-10-2021 ambulatory Mengidania FlorReid Other [employer] Other Start: 07-10-2021 Telephone encounter Mengidania FlorReid [facility] Start: 07-01-2021 End: 07-01-2021 Emergency department patient visit [facility] Start: 07-01-2021 End: 07-01-2021 Emergency department patient visit Karuna Shin MD Work Phone: [facility] ED Comment on above: Encounter for post s urgical wound check (Primary Dx) Start: 06-23-2021 End: 06-23-2021 ambulatory Mengidania FlorReid Other [employer] Other Start: 06-23-2021 Office outpatient vi sit 25 minutes Meng Reid [facility] Start: 06-23-2021 Telephone encounter Meng Florgles [facility] Start: 06-19-2021 End: 06-19-2021 Emergency department patient visit [facility] Start: 06-18-2021 End: 06-21-2021 Emergency department patient visit [facility] Start: 06-18-2021 End: 06-18-2021 Emergency department patient visit Vicki Devi DO Work Phone: [facility] Comment on above: Scrotal wall abscess (Primary Dx) Start: 05-15-2021 End: 05-15-2021 Emergency department patient visit [facility] Start: 02-24-2021 End: 02-24-2021 Emergency department patient visit Pj Werner MD Work Phone: [facility] Comment on above: Hemoptysis (Primary Dx); Chest pain, unspecified type; Shortness of breath Start: 01-24-2021 End: 01-24-2021 Emergency department patient visit [facility] ED Start: 11-08-2020 End: 11-08-2020 Emergency department patient visit Ana Bedoya DO [facility] Comment on above: Sprain of left ankle , unspecified ligament, initial encounter (Primary Dx) Start: 10-24-2020 End: 10-24-2020 Emergency department patient visit Karuna Shin MD Work Phone: [facility] Comment on above: Bronchitis (Primary Dx); Cough; Nasal congestion; Acute frontal sinusitis, recurrence not specified Start: 10-19-2020 End: 10-19-2020 Emergency department patient visit Ana Bedoya DO [facility] Start: 10-15-2020 End: 10-17-2020 Subsequent hospital visit by physician [facility] [address] [facility]ound Comment on above: Arrived Start: 10-15-2020 End: 10-15-2020 Emergency department patient visit Karuna Shin MD Work Phone: [facility] Comment on above: Atypical chest pain (Primary Dx); Abdominal pain, epigastric Start: 08-07-2020 End: 08-07-2020 Emergency department patient visit Pete Lugo Work Phone: [facility] Comment on above: Acute otitis externa of right ear, unspecified type (Primary Dx) Start: 04-01-2020 End: 04-01-2020 Emergency department patient visit Uziel Waters Work Phone: [facility] Comment on above: Sprain of left foot, initial encounter (Primary Dx) Start: 02-20-2020 End: 02-20-2020 Emergency department patient visit Karuna Shin Work Phone: [facility] Comment on above: Bronchitis (Primary Dx); Syncope and collapse Start: 02-19-2020 End: 02-19-2020 Emergency department patient visit Uziel Waters Work Phone: [facility] Comment on above: Bronchitis (Primary Dx); COVID-19 Start: 11-27-2019 End: 11-27-2019 ambulatory UNKNOWN PROVIDER Facility:[facility] Start: 11-01-2019 End: 11-01-2019 Emergency department patient visit Uziel Waters Work Phone: [facility] Comment on above: Pain, dental (Primar y Dx) Start: 05-19-2019 End: 05-19-2019 Emergency department patient visit Karuna Shin MD Work Phone: [facility] Comment on above: Status post amputati on (Primary Dx); Finger swelling Start: 04-17-2019 End: 04-17-2019 Emergency department patient visit Cuauhtemoc Mobley [facility] Comment on above: Postoperative pain ( Primary Dx) Start: 04-14-2019 End: 04-14-2019 Emergency department patient visit Ernestina Joseph Work Phone: [facility] Comment on above: Hand pain, right (Pr imary Dx); Essential hypertension; Amputation of finger without complication, subsequent encounter Start: 04-14-2019 End: 04-14-2019 Emergency department patient visit Ernestina Joseph Work Phone: [facility] Comment on above: Finger amputation, t raumatic, initial encounter (Primary Dx); Laceration of left middle finger, foreign body presence unspecified, nail damage status unspecified, sequela Start: 04-13-2019 End: 04-13-2019 Emergency department patient visit Deandre Torres Work Phone: [facility] Comment on above: Strain of right shou lder, initial encounter (Primary Dx) Start: 02-10-2018 End: 02-10-2018 Patient encounter [facility] Medical Equipment Procedure Code Equipment Code Equipment Origin al Text Equipment Identifier Dates Fmn-Rr-R-Kind Implant - [id number] Start: 11-26-2013 Stent Wallflex 2 3mm 18.5fr Low Profile Permalume 15cm 12cm Esophageal Braid - [id number] Start: 08-06-2017 Drug-eluting coronary artery stent, qen-[id number] lymer-coated ()[id number] [id number] FDA Start: 11-17-2020 Drug-eluting coronary artery stent, iaq-qrjyptgvfsdhc-vh lymer-coated ()[id number] FDA Start: 11-17-2020 Drug-eluting coronary artery stent, llc-nmxsloapqdkaj-wo lymer-coated ()[id number] [id number] FDA Start: 11-17-2020 Goals Date Patient Goal Desired Activity /State Immunizations Immunization Date Immunization Notes Care Provider Fa cility 05-16-2020 influenza, seasonal, injectable Evelin Szado OTR/L Work Phone: [facility] 05-16-2020 influenza virus vaccine, unspecified formulation Evelin Szado OTR/L Work Phone: [facility] 05-30-2019 influenza, injectable, quadrivalent, preservative free Evelin Szado OTR/L Work Phone: [facility] 03-20-2019 influenza, injectable, quadrivalent, contains preservative Meng Reid Other [employer] Other 08-29-2018 tetanus toxoid, reduced diphtheria toxoid, and acellular pertussis vaccine, adsorbed Jazmine Estrella DO Work Phone: [facility] 02-15-2018 influenza, injectable, quadrivalent, contains preservative Meng Reid Other [facility] 01-03-2010 tetanus and diphtheria toxoids, adsorbed, preservative free, for adult use (2 Lf of tetanus toxoid and 2 Lf of diphtheria toxoid) Crissy Mccain [facility] NEGATED: Highlighted row has not occurred!04-29-2016 influenza, injectable, quadrivalent, contains preservative Patient Objection Meng Reid Other [employer] Other Medications Current Medications Medication Drug Class(es) Dates Sig (Normalized) Sig (Original) acetaminophen 325 mg / HYDROcodone bitartrate 5 mg oral tablet (6 sources) Opioid Agonist Start: 12-02-2021 End: 12-06-2021 HYDROcodone-acetam inophen (NORCO) 5-325 MG per tablet Indications: Acute pain of right knee Take 1 tablet by mouth every 6 hours as needed for Pain for up to 4 days. Intended supply: 3 days. Take lowest dose possible to manage pain 12 tablet 0 12/02/2021 12/06/2021 Active Start: 12-02-2021 End: 12-02-2021 HYDROcodone-acetaminophen (N ORCO) 5-325 MG per tablet 1 tablet Start: 06-18-2021 End: 06-21-2021 HYDROcodone-acetaminophen (N ORCO) 5-325 MG per tablet Indications: Scrotal wall abscess Take 1 tablet by mouth every 4-6 hours as needed for Pain for up to 3 days. Intended supply: 3 days. Take lowest dose possible to manage pain 15 tablet 0 06/18/2021 06/21/2021 Active Start: 08-07-2020 End: 08-10-2020 take 1 tablet by mouth every four hours as needed for pain, then take 1 tablet by mouth as needed for pain HYDROcodone-acetaminophen (NORCO) 5-325 MG per tablet Indications: Acute otitis externa of right ear, unspecified type Take 1 tablet by mouth every 4 hours as needed for Pain for up to 3 days. Intended supply: 3 days. Take lowest dose possible to manage pain 9 tablet 0 08/07/2020 08/10/2020 Active Start: 08-07-2020 End: 08-07-2020 HYDROcodone-acetaminophen (N ORCO) 5-325 MG per tablet 1 tablet Start: 05-19-2019 End: 05-23-2019 take 1 tablet by mouth every six hours as needed for pain HYDROcodone-acetaminophen (NORCO) 5-325 MG per tablet Indications: Status post amputation , Finger swelling Take 1 tablet by mouth every 6 hours as needed for Pain for up to 4 days. 12 tablet 0 05/19/2019 05/23/2019 Active acetaminophen 325 mg / oxyCODONE hydrochloride 5 mg oral tablet (8 sources) Opioid Agonist Start: 03-23-2022 End: 03-23-2022 oxyCODONE-acetaminophen (PERCOCET) 5-325 MG per tablet Indications: Lumbar herniated disc Take 1 tablet by mouth every 6 hours as needed for Pain for up to 3 days. Intended supply: 3 days. Take lowest dose possible to manage pain 15 tablet 0 03/23/2022 03/23/2022 Discontinued (ERROR) Start: 11-08-2020 End: 11-09-2020 oxyCODONE-acetaminophen (PER COCET) 5-325 MG per tablet Indications: Sprain of left ankle, unspecified ligament, initial encounter Take 1 tablet by mouth every 6 hours as needed for Pain for up to 1 day. Intended supply: 1 days. Take lowest dose possible to manage pain 4 tablet 0 11/08/2020 11/09/2020 Active Start: 11-08-2020 End: 11-08-2020 oxyCODONE-acetaminophen (PER COCET) 5-325 MG per tablet 1 tablet Start: 04-14-2019 End: 04-14-2019 oxyCODONE-acetaminophen (PER COCET) 5-325 MG per tablet 2 tablet Start: 04-13-2019 End: 04-20-2019 take 1-2 tablets by mouth every six hours as needed for pain, then take 1 tablet by mouth as needed for pain oxyCODONE-acetaminophen (PERCOCET) 5-325 MG per tablet Indications: Postoperative pain Take 1-2 tablets by mouth every 6 hours as needed for Pain for up to 3 days. Intended supply: 3 days. Take lowest dose possible to manage pain 24 tablet 0 04/17/2019 04/20/2019 Active [id number] actuat albuterol 0.09 mg/actuat metered dose inhaler (17 sources) beta2-Adrenergic Agonist Start: 02-19-2020 take 2 puff(s) by inhalation every six hours as needed for wheezing albuterol sulfate HFA (PROAIR HFA) 108 (90 Base) MCG/ACT inhaler Inhale 2 puffs into the lungs every 6 hours as needed for Wheezing 1 Inhaler 0 02/19/2020 Active Start: 02-19-2020 End: 02-26-2020 take 2 puff(s) by inhalation every six hours as needed for wheezing albuterol sulfate HFA (PROAIR HFA) 108 (90 Base) MCG/ACT inhaler Inhale 2 puffs into the lungs every 6 hours as needed for Wheezing 1 Inhaler 0 02/19/2020 Active albuterol sulfate HFA (PROAIR HFA) 108 (90 Base) MCG/ACT inhaler (1 source) Start: 02-19-2020 take 2 puff(s) by inhalation every six hours as needed for wheezing albuterol sulfate HFA (PROAIR HFA) 108 (90 Base) MCG/ACT inhaler Inhale 2 puffs into the lungs every 6 hours as needed for Wheezing 1 Inhaler 0 02/19/2020 Active ALPRAZolam 2 mg oral tablet (20 sources) Benzodiazepine Start: 06-27-2023 take 1 tablet by mouth twice daily as needed for anxiety Xanax 2 MG 1 tablet PRN Orally twice a day PRN anxiety for 30 days Jun, Active Start: 05-26-2023 take 1 tablet by cristobal twice daily as needed for anxiety Xanax 2 MG 1 tablet PRN Orally twice a day PRN anxiety for 30 days May, Active Start: 04-29-2023 take 1 tablet by cristobal twice daily as needed for anxiety Xanax 2 MG 1 tablet PRN Orally twice a day PRN anxiety for 30 days Apr, Active Start: 04-04-2023 take 1 tablet by cristobal twice daily as needed for anxiety Start: 03-08-2023 take 1 tablet by cristobal twice daily as needed for anxiety Xanax 2 MG 1 tablet PRN Orally twice a day PRN anxiety for 30 days Feb, Active Start: 02-04-2023 take 1 tablet by cristobal twice daily as needed for anxiety Xanax 2 MG 1 tablet PRN Orally twice a day PRN anxiety for 30 days Jan, Active Start: 01-06-2023 take 1 tablet by cristobal twice daily as needed for anxiety Xanax 2 MG 1 tablet PRN Orally twice a day PRN anxiety for 30 days Dec, Active Start: 12-02-2022 take 1 tablet by cristobal twice daily as needed for anxiety Xanax 2 MG 1 tablet PRN Orally twice a day PRN anxiety for 30 days Nov, Active Start: 11-02-2022 take 1 tablet by cristobal twice daily as needed for anxiety Xanax 2 MG 1 tablet PRN Orally twice a day PRN anxiety for 30 days Oct, Active Start: 10-07-2022 take 1 tablet by cristobal twice daily as needed for anxiety Xanax 2 MG 1 tablet PRN Orally twice a day PRN anxiety for 30 days September, Active Start: 06-24-2021 take 1 tablet by cristobal th three times daily as needed for anxiety alprazolam 1 mg Tab 1 mg = 1 tab(s), Oral, TID, PRN for anxiety Start Date: 06/24/21 Status: Ordered Start: 11-18-2020 take 1 tablet by cristobal th twice daily as needed for anxiety Alprazolam Active 2 MG PO Twice daily November 18, 2020 12:00am TAKE 1 TABLET BY MOUTH TWICE DAILY NEEDED FOR ANXIETY Start: 04-16-2019 take 1 tablet by cristobal th twice daily as needed for anxiety Xanax 1 MG 1 tablet PRN Orally twice a day PRN anxiety for 30 day(s) September, Active Start: 09-01-2016 take 0.5 mg by mouth every twenty-four hours as needed ALPRAZolam (XANAX) 1 mg tablet 0.5 mg at bedtime as needed. 0 09/01/2016 Active take 1 tablet by cristobal th once daily as needed for sleep ALPRAZolam (XANAX) 0.5 MG tablet Take 0.5 mg by mouth nightly as needed for Sleep.. 0 Active Comment on above: 0.5 mg at bedtime as needed. amoxicillin 875 mg / clavulanate 125 mg oral tablet (18 sources) Penicillin-class Antibacterial Start: 07-28-19 take 1 tablet by mouth every twelve hours antibiotic pt unsure of name for 10 days (1 source) Start: 06-02-19 antibiotic pt unsure of name for 10 days antibiotic pt unsure of name for 10 days, Oral, BID, infection Start Date: 06/02/15 Status: Ordered apixaban (1 source) Factor Xa Inhibitor End: 02-25-20 21 Apixaban (ELIQUIS PO) Take by mouth 0 02/24/2021 Discontinued (LIST CLEANUP) aspirin 81 mg oral capsule (20 sources) Platelet Aggregation Inhibitor, Nonsteroidal Anti-inflammatory Drug Start: 06-24-19 take 1 capsule by mouth every four hours aspirin 81 mg oral capsule 81 mg = 1 cap(s), Oral, q4hr Start Date: 06/24/21 Status: Ordered Start: 11-21-2020 take 1 tablet by critsobal th once daily Aspirin (Children's Aspirin) 81 mg Tablet,Chewable Active 81 MG PO Daily 0 November 21, 2020 12:00am take 1 tablet by cristobal th once daily take 1 tablet by cristobal th once daily aspirin, enteric coated (ASPIRIN, ENTERIC COATED) 81 mg EC tablet Take 81 mg by mouth once daily. 0 Active Comment on above: Take 81 mg by mouth once daily. atorvastatin 80 mg oral tablet (20 sources) HMG-CoA Reductase Inhibitor Start: 11-22-19 End: 03-17-20 take 1 tablet by mouth once daily in the evening Atorvastatin (Lipitor) 80 mg tablet Active 80 MG PO Every evening December 11, 2020 4:50pm Comment on above: Take 80 mg by mouth once daily. Take 1 tablet by cristobal th once daily. azithromycin 250 mg oral tablet (2 sources) Macrolide Antimicrobial Start: 02-19-20 End: 02-29-20 take 2 tablets by mouth once daily azithromycin (ZITHROMAX Z-JESSE) 250 MG tablet Indications: Bronchitis , COVID-19 TAKE 500MG PO DAY ONE... 250MG PO DAY TWO THROUGH FIVE DISPENSE 6 TABS NO REFILLS 1 packet 0 02/19/2020 02/29/2020 Active baclofen 5 mg oral tablet (20 sources) gamma-Aminobutyric Acid-ergic Agonist take 1 tablet by mouth every twelve hours take 1 tablet by mouth every eig ht hours Comment on above: Take by mouth. cephalexin 500 mg oral capsule (20 sources) Cephalosporin Antibacterial Start: 3 take 500 mg by mouth three times daily Cephalexin Active 500 MG PO Three times daily January 27, 2023 12:00am Chantix Starting Month Jesse 0.5 MG X 11 & 1 MG X 42 (9 sources) Start: 3 Chantix Starting Month Jesse 0.5 MG X 11 & 1 MG X 42 as directed Orally as directed for 30 days May, Active clindamycin 300 mg oral capsule (20 sources) Lincosamide Antibacterial Start: 2 take 1 capsule by mouth every eight hours Clindamycin HCl 300 MG 1 capsules Orally every 8 hrs for 7 day(s) Jun, Active Start: 06-18-2021 End: 06-28-2021 take 1 capsule by mouth three times daily clindamycin (CLEOCIN) 300 MG capsule Take 1 capsule by mouth 3 times daily for 10 days 30 capsule 0 06/18/2021 06/28/2021 Active Start: 06-18-2021 End: 06-18-2021 clindamycin (CLEOCIN) capsul e 300 mg Start: 08-07-2020 End: 08-07-2020 clindamycin (CLEOCIN) capsul e 150 mg Start: 11-01-2019 End: 11-11-2019 take 1 capsule by mouth four times daily clindamycin (CLEOCIN) 300 MG capsule Take 1 capsule by mouth 4 times daily for 10 days 40 capsule 0 11/01/2019 11/11/2019 Active Start: 05-30-2019 End: 08-17-2020 take 1 capsule by mouth three times daily clindamycin (CLEOCIN) 300 MG capsule Take 1 capsule by mouth 3 times daily for 10 days 30 capsule 0 08/07/2020 08/17/2020 Active Start: 04-14-2019 End: 04-14-2019 clindamycin (CLEOCIN) 600 mg in dextrose 5 % 50 mL IVPB cyclobenzaprine hydrochloride 10 mg oral tablet (20 sources) Muscle Relaxant Start: 01-27-2023 take 10 mg by mouth three times daily Cyclobenzaprine Active 10 MG PO Three times daily January 27, 2023 12:00am Start: 03-23-2022 End: 03-23-2022 take 1 tablet by mouth three times daily as needed for muscle spasms cyclobenzaprine (FLEXERIL) 10 MG tablet Take 1 tablet by mouth 3 times daily as needed for Muscle spasms 15 tablet 0 03/23/2022 03/23/2022 Discontinued (ERROR) Start: 06-24-2021 take 1 tablet by cristobal th three times daily as needed for muscle spasms cyclobenzaprine 10 mg Tab 10 mg = 1 tab(s), Oral, TID, PRN for spasm Start Date: 06/24/21 Status: Ordered Start: 12-18-2020 End: 01-24-2023 take 10 mg by mouth once daily at bedtime Cyclobenzaprine Discontinued 10 MG PO Daily at bedtime December 18, 2020 12:00am January 24, 2023 11:24pm Start: 04-13-2019 End: 04-23-2019 take 1 tablet by mouth three times daily as needed for muscle spasms cyclobenzaprine (FLEXERIL) 10 MG tablet Take 1 tablet by mouth 3 times daily as needed for Muscle spasms 30 tablet 0 04/13/2019 04/23/2019 Active Start: 02-27-2014 take 1 tablet by cristobal th every eight hours as needed for muscle spasms cyclobenzaprine (FLEXERIL) 10 mg tablet Indications: Displacement of lumbar intervertebral disc without myelopathy Take 1 tablet by mouth every 8 hours as needed for Muscle Spasm. 60 tablet 0 02/27/2014 Active Comment on above: Take 1 tablet by cristobal th every 8 hours as needed for Muscle Spasm. dilTIAZem hydrochloride 120 mg oral tablet (20 sources) Calcium Channel Derek Start: 06-24-2021 take 1 mg by mouth three times daily diltiazem 120 mg oral tablet mg tab(s), Oral, TID Start Date: 06/24/21 Status: Ordered Start: 12-18-2020 End: 01-27-2023 take 120 mg by mouth once daily Diltiazem Hcl Disconti nued 120 MG PO Daily December 18, 2020 12:00am January 27, 2023 9:01am take 1 tablet by cristobal once daily Comment on above: Take 120 mg by mouth once daily. docusate sodium 100 mg oral capsule (5 sources) Start: 10-24-19 take 1 capsule by mouth twice daily docusate sodium (COLACE) 100 mg capsule Take 1 capsule by mouth 2 times daily 30 capsule 0 10/23/2021 Active doxycycline monohydrate 100 mg oral tablet (1 source) Tetracycline-class Drug Start: 05-19-19 End: 05-29-19 take 1 tablet by mouth twice daily doxycycline monohydrate (ADOXA) 100 MG tablet Take 1 tablet by mouth 2 times daily for 10 days May substitute another form of Doxycycline if insurance requires. 20 tablet 0 05/19/2019 05/29/2019 Active Ergocalciferol (20 sources) Provitamin D2 Compound Start: 06-24-19 ergocalciferol Oral, Refills(s) 0 Start Date: 06/24/21 Status: Ordered Start: 12-18-2020 Ergocalciferol (Vitamin D2) Active 1250 MCG PO Th@0900 December 18, 2020 12:00am take 1 capsule by mo uth every week take 1.25 mg by mout h every week vitamin D (ERGOCALCIFEROL) 1.25 MG (19895 UT) CAPS capsule Take 50,000 Units by mouth once a week 0 Active furosemide 40 mg oral tablet (5 sources) Loop Diuretic take 1 tablet by mouth every twenty-four hours Lasix 40 MG 1 tablet Orally Once a day for 30 days Active gabapentin 300 mg oral capsule (1 source) Anti-epileptic Agent Start: take 1 capsule by mouth three times daily gabapentin (NEURONTIN) 300 MG capsule Take 1 Capsule by mouth 3 times daily for 30 days. 90 Capsule 3 04/24/2019 Active levoFLOXacin 500 mg oral tablet (1 source) Quinolone Antimicrobial Start: End: take 1 tablet by mouth once daily levoFLOXacin (LEVAQUIN) 500 MG tablet Take 1 tablet by mouth daily for 10 days 10 tablet 0 10/24/2020 11/03/2020 Active lisinopril 5 mg oral tablet (20 sources) Angiotensin Converting Enzyme Inhibitor Start: End: take 1 tablet by mouth once daily Lisinopril (Zestril) 5 mg tablet Active 5 MG PO Daily December 11, 2020 4:50pm Multiple Vitamins-Minerals (THERAPEUTIC MULTIVITAMIN-MINERAL S) tablet (10 sources) take 1 tablet by mouth once daily Multiple Vitamins-Minerals (THERAPEUTIC MULTIVITAMIN-MINERA LS) tablet Take 1 tablet by mouth daily 0 Active Multivitamin preparation (20 sources) Start: take 1 tablet by mouth once daily Multivitamin Active 1 TAB PO Daily December 18, 2020 12:00am take 1 tablet by mouth once edwardo y take 1 tablet by mouth once edwardo y Multivitamin - 1 tablet Orally Once a day for 90 day(s) Active take 1 tablet by mouth once edwardo y Multivitamin - 1 tablet Orally Once a day for 30 day(s) Active Nitroglycerin (20 sources) Nitrate Vasodilator Start: 06-24-2021 nitroglyce rin Refills(s) 0 Start Date: 06/24/21 Status: Ordered Start: 12-12-2020 End: 01-24-2023 apply 0.2 mg transdermal route every hour, then apply 1 dose transdermal route every twenty-four hours Nitroglycerin (Nitro-Dur) 0.2 mg/hr patch 24 hour Discontinued 1 PATCH TRANSDERML Daily December 12, 2020 12:00am January 24, 2023 11:26pm allow nitrate-free interval of approx. 10-12 hrs per 24-hour period Start: 11-21-2020 Nitroglycerin (Nitrostat) 0.4 mg tablet, sublingual Active 0.4 MG SUBLINGUAL Q5M November 21, 2020 12:00am do not exceed 3 doses per episode Comment on above: Dissolve 0.4 mg unde r the tongue every 5 minutes as needed for chest pain. nitroglycerin 0.4 mg SubL Carbon (1 source) Start: nitroglycerin 0.4 mg SubL Carbon mg spray(s), SubLingual, q5min, Refills(s) 0 Start Date: 06/24/21 Status: Ordered ondansetron 8 mg oral tablet (20 sources) Serotonin-3 Receptor Antagonist Start: 3 take 1 tablet by mouth every eight hours as needed Start: 10-28-2021 take 1 tablet by cristobal th every eight hours Ondansetron HCl 4 MG 1 tablet Orally every 8 hrs for 7 day(s) Oct, Active Start: 10-23-2021 End: 10-23-2021 ondansetron (ZOFRAN) injecti on 4 mg Start: 10-23-2021 End: 03-23-2022 take 1 tablet by mouth every four hours as needed for nausea ondansetron (ZOFRAN ODT) 4 MG disintegrating tablet Take 1 tablet by mouth every 4 hours as needed for Nausea or Vomiting 10 tablet 1 10/23/2021 Active Start: 04-14-2019 End: 04-14-2019 ondansetron (ZOFRAN) injecti on 4 mg oxyCODONE hydrochloride 5 mg oral tablet (20 sources) Opioid Agonist Start: 11-25-2022 take 1-2 tablets by mouth every six hours as needed Start: 04-05-2022 take 1 tablet by cristobal th every six hours oxyCODONE HCl 5 MG 1 tablet as needed Orally every 6 hrs for 7 days Mar, Active Start: 03-23-2022 End: 03-26-2022 take 1 tablet by mouth every six hours oxyCODONE HCl 5 MG 1 tablet as needed Orally every 6 hrs for 7 days Mar, Active Start: 01-27-2022 take 1 tablet by cristobal th every six hours oxyCODONE HCl 5 MG 1 tablet as needed Orally every 6 hrs for 7 days Jan, Active Start: 01-21-2022 take 1 tablet by cristobal th every six hours oxyCODONE HCl 5 MG 1 tablet as needed Orally every 6 hrs for 7 days Jan, Active Start: 11-11-2021 take 1 tablet by cristobal th every six hours oxyCODONE HCl 5 MG 1 tablet as needed Orally every 6 hrs for 7 days Oct, Active Start: 10-28-2021 take 1 tablet by cristobal th every six hours oxyCODONE HCl 5 MG 1 tablet as needed Orally every 6 hrs for 7 days Oct, Active Start: 10-23-2021 End: 10-26-2021 oxyCODONE (ROXICODONE) 5 MG immediate release tablet Indications: Lumbar transverse process fracture, closed, initial encounter ([facility]) Take 1 tablet by mouth every 4 hours as needed for Pain for up to 3 days. Intended supply: 3 days. Take lowest dose possible to manage pain 20 tablet 0 10/23/2021 10/26/2021 Active Start: 08-26-2021 take 1 tablet by cristobal every eight hours oxyCODONE HCl 5 MG 1 tablet as needed Orally every 8 hrs for 7 days duplicte Aug, Not-Taking Start: 06-29-2021 take 1 tablet by cristobal every eight hours oxyCODONE HCl 5 MG 1 tablet as needed Orally every 8 hrs for 7 days Jun, Active Start: 06-23-2021 take 1 tablet by cristobal every eight hours oxyCODONE HCl 5 MG 1 tablet as needed Orally every 8 hrs for 7 days Jun, Active pantoprazole (20 sources) Proton Pump Inhibitor Start: 06-24-2021 Protonix 40 mg tablet 40 mg, Daily Start Date: 06/24/21 Status: Ordered Start: 07-19-2018 pantoprazole ( PROTONIX) 40 MG tablet Take 40 mg by mouth. 0 07/19/2018 Active take 1 tablet by cristobal th once daily pantoprazole DR (PROTONIX) 40 mg tablet Take 40 mg by mouth once daily. 0 Active take 1 tablet by cristobal once daily pantoprazole (PROTONIX) 20 MG tablet Take 20 mg by mouth daily 0 Active Comment on above: Take 1 tablet by cristobal th twice daily. Take 40 mg by mouth once daily. potassium chloride 20 meq extended release oral tablet (5 sources) take 1 tablet by mouth every twenty-four hours K-Tab 20 MEQ 1 tablet with food Orally Once a day for 30 days Active Prednisone (10 sources) Start: 01-27-2023 Prednisone Active 1 dose pk PO per package directions January 27, 2023 12:00am take 4 tabs for 3 days then take 3 tabs for 3 days then take 2 tabs for 3 days then take 1 tab for 3 days Start: 10-24-2020 End: 10-29-2020 take 2 tablets by mouth once daily predniSONE (DELTASONE) 20 MG tablet Take 2 tablets by mouth daily for 5 doses 10 tablet 0 10/24/2020 10/29/2020 Active Start: 02-19-2020 End: 02-29-2020 take 4 tablets by mouth once daily, then take 2 tablets by mouth once daily, then take 1 tablet by mouth once daily predniSONE (DELTASONE) 10 MG tablet 40mg po qd for 3 days, then 20mg po qd for 3 days, then 10mg po qd for 3 days 21 tablet 0 02/19/2020 02/29/2020 Active Start: 08-29-2018 take 1 tablet by cristobal twice daily predniSONE (DELTASONE) 20 mg tablet Take 1 tablet by mouth twice daily. 10 tablet 0 08/29/2018 Active Comment on above: Take 1 tablet by cristobal twice daily. pregabalin 50 mg oral capsule (20 sources) take 1 capsule by mouth three times daily Comment on above: Take 50 mg by mouth three times daily. 24 hr propranolol hydrochloride 120 mg extended release oral capsule (15 sources) beta-Adrenergic Derek take 1 capsule by mouth every twenty-four hours Comment on above: Take 120 mg by mouth once daily. rimegepant 75 mg disintegrating oral tablet (14 sources) Start: take 1 tablet by mouth once daily Rimegepant (Nurtec Odt) 75 mg tablet,disintegrati ng Active 75 MG PO Daily January 26, 2023 12:00am Rimegepant Sulfate (NURTEC PO) (9 sources) Rimegepant Sulfa te (NURTEC PO) Take by mouth 0 Active sertraline 50 mg oral tablet (20 sources) Serotonin Reuptake Inhibitor Start: 9 take 1 tablet by mouth once daily sertraline (ZOLOFT) 50 MG tablet Take 50 mg by mouth daily. 0 02/27/2019 Active Start: 01-04-2011 take 1 tablet by cristobal th every twenty-four hours Zoloft 100 MG 1 tablet Orally Once a day for 90 days Dec, Active Comment on above: Take 100 mg by mouth once daily. 125 ml sodium chloride 9 mg/ml prefilled syringe (7 sources) Start: 05-13-2022 End: 08-12-2023 sodium chloride 0.9 % (flush) 10 mL (BD POSIFLUSH) Start: 07-01-2021 sodium chlorid e 0.9 % irrigation 250 mL Start: 02-20-2020 End: 02-20-2020 0.9 % sodium chloride bolus Start: 04-14-2019 End: 04-14-2019 0.9 % sodium chloride bolus sodium chloride flush 0.9 % injection 3 mL (3 sources) Start: 10-23-2021 sodium chlorid e flush 0.9 % injection 3 mL Start: 02-20-2020 sodium chlorid e flush 0.9 % injection 3 mL Start: 04-14-2019 sodium chlorid e flush 0.9 % injection 3 mL sucralfate 1000 mg oral tablet (20 sources) Aluminum Complex Start: 12-18-2020 take 1 g by mouth once before mealtime Sucralfate Active 1 GM PO 3x/Day before meals & bedtime 120 December 18, 2020 12:00am Start: 03-01-2019 End: 12-12-2020 take 1 tablet by mouth four times daily sucralfate (CARAFATE) 1 GM tablet TAKE 1 TABLET BY MOUTH FOUR TIMES A DAY 1 03/01/2019 Active take 1 tablet by cristobal th every six hours Comment on above: Take 1 g by mouth fo ur times daily. tadalafil 5 mg oral tablet (20 sources) Phosphodiesterase 5 Inhibitor Start: 01-08-20 End: 12-19-19 21 take 1 tablet by mouth every twenty-four hours traMADol hydrochloride 50 mg oral tablet (3 sources) Opioid Agonist Start: 04-01-20 End: 04-04-20 take 1 tablet by mouth every six hours as needed for pain, then take 1 tablet by mouth as needed for pain traMADol (ULTRAM) 50 MG tablet Indications: Sprain of left foot, initial encounter Take 1 tablet by mouth every 6 hours as needed for Pain for up to 3 days. Intended supply: 3 days. Take lowest dose possible to manage pain 12 tablet 0 04/01/2020 04/04/2020 Active Start: 11-01-2019 End: 11-04-2019 take 1 tablet by mouth every six hours as needed for pain, then take 1 tablet by mouth as needed for pain traMADol (ULTRAM) 50 MG tablet Indications: Pain, dental Take 1 tablet by mouth every 6 hours as needed for Pain for up to 3 days. Intended supply: 3 days. Take lowest dose possible to manage pain 12 tablet 0 11/01/2019 11/04/2019 Active vitamin b12 1 mg oral tablet (20 sources) Vitamin B12 Start: 06-24-2021 take 1 tablet by mouth once daily cyanocobalamin 1000 mcg oral tablet 1,000 mcg = 1 tab(s), Oral, Daily Start Date: 06/24/21 Status: Ordered Start: 12-18-2020 take 1000 ug by mout h once daily Cyanocobalamin (Vitamin B-12) Active 1000 MCG PO Daily December 18, 2020 12:00am take 1 tablet by cristobal th once daily take 1 tablet by cristobal th once daily Cyanocobalamin 1000 MCG 1 tablet Orally Once a day for 30 day(s) Active Completed/Discontinued Medications Medication Drug Class(es) Dates Sig (Normalized) Sig (Original) acetaminophen 500 mg oral tablet (1 source) Start: 02-24-2021 End: 02-24-2021 acetaminophen (TYLENOL) tablet 1,000 mg ascorbic acid 1000 mg oral tablet (4 sources) Vitamin C take 1 tablet by mouth once daily Ascorbic Acid 1,000 mg tablet Indications: Displacement of lumbar intervertebral disc without myelopathy Take 1,000 mg by mouth once daily. 0 Active Comment on above: Take 1,000 mg by cristobal th once daily. CALCIUM CITRATE, BULK, MISC (4 sources) CALCIUM CITRATE, BULK, MISC 1 ml dexamethasone phosphate 10 mg/ml injection (1 source) Corticosteroid Start: 03-23-2022 End: 03-23-2022 dexamethasone (PF) (DECADRON) injection 8 mg dextromethorphan hydrobromide 2 mg/ml / guaiFENesin 20 mg/ml oral solution (4 sources) Uncompetitive M-azzacl-R-aspartat e Receptor Antagonist, Sigma-1 Agonist Start: 08-29-2018 take 5 mL by mouth every eight hours as needed guaiFENesin-dextrom ethorphan (ROBITUSSIN DM) 100-10 mg/5 mL syrup Take 5 mL by mouth three times daily as needed. 236 mL 0 08/29/2018 Active Comment on above: Take 5 mL by mouth t hree times daily as needed. diazePAM 5 mg oral tablet (4 sources) Benzodiazepine Start: 02-19-2014 take 1 tablet by mouth every eight hours as needed diazepam (VALIUM) 5 mg tablet Take 1 tablet by mouth every 8 hours as needed (muscle spasms). 60 tablet 0 02/19/2014 Active Comment on above: Take 1 tablet by cristobal every 8 hours as needed (muscle spasms). 1 ml diphenhydrAMINE hydrochloride 50 mg/ml cartridge (1 source) Histamine-1 Receptor Antagonist Start: 10-15-2020 End: 10-15-2020 diphenhydrAMINE (BENADRYL) injection 25 mg ergocalciferol, vitamin D2, (VITAMIN D2 ORAL) (4 sources) ergocalciferol, vitamin D2, (VITAMIN D2 ORAL) Take by mouth. 0 Active Comment on above: Take by mouth. famotidine 20 mg oral tablet (17 sources) Histamine-2 Receptor Antagonist Start: 10-26-2020 End: 12-16-2020 take 1 tablet by mouth twice daily Famotidine (Pepcid) 20 mg tablet Discontinued 20 MG PO Twice daily November 18, 2020 12:00am December 16, 2020 4:39am 2 ml fentaNYL 0.05 mg/ml injection (1 source) Opioid Agonist Start: 04-14-2019 End: 04-14-2019 fentaNYL (SUBLIMAZE) injection 25 mcg 1 ml HYDROmorphone hydrochloride 1 mg/ml cartridge (3 sources) Opioid Agonist Start: 04-14-2019 End: 04-14-2019 HYDROmorphone (DILAUDID) injection 1 mg Start: 04-14-2019 End: 04-14-2019 HYDROmorphone (DILAUDID) inj ection 1 mg Start: 04-14-2019 End: 04-14-2019 HYDROmorphone (DILAUDID) 1 M G/ML injection iopamidol (ISOVUE-370) 76 % injection 100 mL (2 sources) Start: 10-23-2021 End: 10-23-2021 iopamidol (ISOVUE-370) 76 % injection 100 mL Start: 02-24-2021 End: 02-24-2021 iopamidol (ISOVUE-370) 76 % injection 100 mL 10 ml lidocaine hydrochloride 20 mg/ml injection (2 sources) Antiarrhythmic, Amide Local Anesthetic Start: 04-14-2019 End: 04-14-2019 lidocaine 2 % injection 10 mL 2 ml metoclopramide 5 mg/ml prefilled syringe (1 source) Dopamine-2 Receptor Antagonist Start: 10-15-2020 End: 10-15-2020 metoclopramide (REGLAN) injection 10 mg metoprolol tartrate 25 mg oral tablet (10 sources) beta-Adrenergic Derek Start: 12-12-2020 End: 12-18-2020 take 12.5 mg by mouth twice daily Metoprolol Tartrate Discontinued 12.5 MG PO Twice daily 60 December 12, 2020 1:28pm December 18, 2020 11:36am Start: 11-21-2020 End: 12-12-2020 take 25 mg by mouth twice daily Metoprolol Tartrate Discontinued 25 MG PO Twice daily 60 November 21, 2020 12:00am December 12, 2020 1:28pm montelukast 10 mg oral tablet (20 sources) Leukotriene Receptor Antagonist Start: 08-29-2019 End: 01-24-2023 take 10 mg by mouth once daily Montelukast Discontinued 10 MG PO Daily November 18, 2020 12:00am January 24, 2023 11:25pm Montelukast Sodi um (SINGULAIR PO) Take by mouth 0 Active 1 ml morphine sulfate 4 mg/ml injection (4 sources) Opioid Agonist Start: 03-23-2022 End: 03-23-2022 morphine sulfate (PF) injection 4 mg Start: 10-23-2021 morphine sulfa te (PF) injection 4 mg Start: 06-18-2021 End: 06-18-2021 morphine sulfate (PF) inject ion 4 mg Start: 10-15-2020 End: 10-15-2020 morphine injection 4 mg MULTIVIT &MINERALS/FERROUS FUM (MULTI VITAMIN ORAL) (4 sources) MULTIVIT &MINERALS/FERROUS FUM (MULTI VITAMIN ORAL) Indications: Displacement of lumbar intervertebral disc without myelopathy Take by mouth. 0 Active Comment on above: Take by mouth. 24 hr nicotine 0.875 mg/hr transdermal system (20 sources) Cholinergic Nicotinic Agonist Start: 2017 End: 2020 apply 1 dose transdermal route once daily Nicotine Discontinued 1 PATCH TRANSDERML Daily December 11, 2020 12:00am December 18, 2020 11:36am apply 1 dose transdermal route o nce daily Nicoderm CQ 14 MG/24HR 1 patch to skin Transdermal Once a day Not-Taking Comment on above: Apply 1 Patch as dir ected once daily. 2 ml orphenadrine citrate 30 mg/ml injection (1 source) Muscle Relaxant Start: 04-13-2019 End: 04-13-2019 orphenadrine (NORFLEX) injection 60 mg perflutren lipid microspheres 1.3 mL in NaCl (PF) 0.9% 10 mL injection (DEFINITY) (2 sources) Start: 05-13-2022 End: 07-21-2022 perflutren lipid microspheres 1.3 mL in NaCl (PF) 0.9% 10 mL injection (DEFINITY) Start: 05-13-2022 End: 08-12-2023 perflutren lipid microsphere s 1.3 mL in NaCl (PF) 0.9% 10 mL injection (DEFINITY) 72 hr scopolamine 0.0139 mg/hr transdermal system (4 sources) Anticholinergic Start: 08-12-2017 scopolamine (TRANSDERM-SCOP) 1 mg over 3 days Apply 1 Patch as directed every 72 hours. 5 Patch 3 08/12/2017 Active Comment on above: Apply 1 Patch as dir ected every 72 hours. ticagrelor 90 mg oral tablet (20 sources) Start: 11-21-2020 End: 01-24-2023 take 1 tablet by mouth twice daily Ticagrelor (Brilinta) 90 mg Tablet Discontinued 90 MG PO Twice daily 180 90 November 21, 2020 12:00am January 24, 2023 11:24pm Comment on above: Take by mouth. traZODone hydrochloride 50 mg oral tablet (4 sources) Serotonin Reuptake Inhibitor take 1 tablet by mouth once daily at bedtime traZODone (DESYREL) 50 mg tablet Take 50 mg by mouth daily at bedtime. 0 Active Comment on above: Take 50 mg by mouth daily at bedtime. Triamcinolone (20 sources) Corticosteroid Start: 06-28-2018 KENALOG - 10 mg Jun, 80 mg Payers Date Payer Category Payer Self-pay [id number] 2020 Medicaid [id number] 2019 Private Health Insurance [id number] 2019 Private Health Insurance [facility] COMMUNITY PLAN xxxxxxxxx 2019-Present [phone] [address] [place] [address] xxxxxxxxx [id number] 2017 Private Health Insurance [employer]indu ESTEFANYNA xxxxxxxxxx 2017-Present [phone] [address] [place] [address] xxxxxxxxxx [id number] 1976 Unknown [id number] 2.16.840.1.233848.3.579.2. 732 1976 Unknown [id number] 2.16.840.1.555159.3.579.2. 185 1976 Unknown [id number] 2.16.840.1.115187.3.579.2. 185 1976 Unknown [id number] 2.16.840.1.347930.3.579.2. 185 1976 Unknown [id number] 2.16.840.1.070786.3.579.2. 185 1976 Unknown [id number] 2.16.840.1.844818.3.579.2. 185 1976 Unknown [id number] 2.16.840.1.316490.3.579.2. 185 1976 Unknown [id number] 2.16.840.1.735211.3.579.2. 185 1976 Unknown [id number] 2.16.840.1.492441.3.579.2. 185 1976 Unknown [id number] 2.16.840.1.494832.3.579.2. 185 1976 Unknown [id number] 2.16.840.1.961336.3.579.2. 185 1976 Unknown [id number] 2.16.840.1.769165.3.579.2. 182 1976 Unknown [id number] 2.16.840.1.127535.3.579.2. 182 1976 Unknown [id number] 2.16.840.1.899228.3.579.2. 593 1976 Unknown [id number] 2.16.840.1.773913.3.579.2. 356 1976 Unknown [id number] 2.16.840.1.975637.3.579.2. 356 1976 Unknown [id number] 2.16.840.1.853850.3.579.2. 356 1976 Unknown [id number] 2.16.840.1.505593.3.579.2. 356 1976 Unknown [id number] 2.16.840.1.944863.3.579.2. 356 1976 Unknown [id number] 2.16.840.1.050434.3.579.2. 356 1976 Unknown [id number] 2.16.840.1.636090.3.579.2. 1259 1959 Private Health Insurance [id number]. [id number] Private Health Insurance [facility] [id number] Private Health Insurance [facility] [id number] Private Health Insurance [id number] Unknown [employer] Unknown [id number] 2.16.840.1.814342.3.579.2. 531 Unknown [id number] 2.16.840.1.953062.3.579.2. 531 Unknown [id number] 2.16.840.1.056934.3.579.2. 531 Plan of Treatment Date Care Activity Detail Author Start: 08-29-2028 DTaP/Tdap/Td vaccine (2 - Td or Tdap) DTaP/Tdap/Td vaccine (2 - Td or Tdap) [facility] Start: 08-29-2028 DTaP/Tdap/Td vaccine (2 - Td) DTaP/Tdap/Td vaccine (2 - Td) [place] Start: 08-29-2028 Tetanus vaccination Tetanus (T d or Tdap) Booster [facility] Start: 08-29-2028 Urine microalbumin profile DTAP,TDAP,TD (2 - Td or Tdap) [facility] Start: 2026 Shingles (RZV) Vacci ne (1 of 2) Shingles (RZV) Vaccine (1 of 2) [facility] Start: 01-27-2023 [facility] Start: 01-26-2023 Hospital admission [facility] Start: 01-26-2023 Physical therapy procedure [facility] Start: 01-26-2023 Referral to occupati onal therapist [facility] Start: 01-25-2023 Referral to [employer] [facility] Start: 01-25-2023 Sleep disorder assessment [facility] Start: 01-24-2023 End: 01-24-2023 [facility] Start: 01-24-2023 Consultation [facility] Start: 01-24-2023 Hospital admission [facility] Start: 01-24-2023 Plain chest X-ray XR chest 1V portab le [facility] Start: 01-24-2023 XR Chest Single view Fi [facility] Start: 01-24-2023 Excision of Lumbar Vertebral Disc, Open Approach Excision of Lumbar Vertebral Disc, Open Approach [facility] Start: 01-14-2023 Influenza vaccination C [facility] Start: 12-17-2022 End: 02-16-2023 Hepatic function 2000 panel - Serum or Plasma HEPATIC FUNCTION PNL Lab Routine Mixed hyperlipidemia Expected: 12/17/2022, Expires: 02/16/2023 [facility] Work Phone: Comment on above: Expected: 12/17/2022 , Expires: 02/16/2023 Start: 12-17-2022 End: 02-16-2023 Lipid 1996 panel - Serum or Plasma LIPID PANEL BASIC Lab Routine Mixed hyperlipidemia Expected: 12/17/2022, Expires: 02/16/2023 [facility] Work Phone: Comment on above: Expected: 12/17/2022 , Expires: 02/16/2023 Start: 12-14-2022 Influenza vaccination Flu vacc ine (Season Ended) [facility] Start: 09-08-2022 Creatinine measurement Creatinine [facility] [place] Start: 09-08-2022 Potassium [Moles/vol ume] in Serum or Plasma Potassium [facility] Start: 05-24-2022 DIABETES SCREEN DIABETES SCREEN [facility] Start: 05-16-2022 DEPRESSION ASSESSMENT DEPRESSION ASS ESSMENT [facility] Start: 05-14-2022 Creatinine measurement Creatinine mo [employer] Start: 05-14-2022 Potassium monitoring Potassium monit [facility] Start: 02-24-2022 Creatinine measurement [facility] Work Phone: Start: 02-24-2022 Potassium monitoring Potassium monit [facility] Work Phone: Start: 02-13-2022 Influenza vaccination Influenza Vacc ine (#1) [facility] Start: 01-14-2022 Influenza vaccination [facility] Start: 12-14-2021 Influenza vaccination Flu vaccine (# 1) [facility] Start: 05-16-2021 DEPRESSION ASSESSMENT DEPRESSION ASS ESSMENT [facility] Start: 2021 COLOGUARD (FIT-DNA) COLOGUARD (FIT-D NA) [facility] Start: 2021 Colonoscopy COLONOSCOPY [facility] Start: 2021 COLORECTAL CANCER SCREENING COLORECTAL CANCER SCREENING [facility] Start: [address] COLONOGRAPHY [facility] Start: 2021 FECAL OCCULT BLOOD FECAL OCCULT BLOO D [facility] Start: 2021 Screening for malign ant neoplasm of colon [facility] Start: 2021 SIGMOIDOSCOPY SIGMOIDOSCOPY [facility] Start: 01-14-2021 Influenza vaccination [facility] Start: 10-15-2020 Subsequent hospital visit by physician 10/15/2020 Hospital Encounter Radiology Arrived [facility] Ultrasound Comment on above: Arrived Start: 01-15-2020 Influenza vaccination Flu vaccine (# 1) [place] Start: 01-14-2019 Influenza vaccination Flu vaccine (# 1) [place] Start: 05-24-2017 LIPID SCREEN LIPID SCREEN [facility] Start: 2016 Diabetes screen Diabetes screen [place], [place] Start: 2016 Lipid panel Lipid screen [place], [place] Start: 2016 Lipid screen Lipid screen [place] Start: 05-24-2013 Hepatitis B surface antibody level LDL CHOLESTEROL [facility] Start: 2011 Diabetes screen Diabetes screen [facility] Start: 2011 Lipid panel Cholesterol [facility] Start: 1994 ANNUAL PCP TEAM UKE DRIVER MIN DISEASE VISIT ANNUAL PCP TEAM CHRONIC DISEASE VISIT [facility] Start: 1994 BP CONTROLLED (<130/80) BP CONTROLLE D (<130/80) [facility] Start: 1994 Hepatitis C screening [facility] Start: 1994 HEPATITIS C [facility] Start: 1994 HIV SCREENING HIV SCREENING [facility] Start: 1992 COVID-19 Vaccine (1) COVID-19 Vaccin e (1) [facility] [employer] Phone: Start: 1991 HIV screen HIV screen [place], [place] Start: 1991 HIV screening [facility] Start: 1988 COVID-19 Vaccine (1) COVID-19 Vaccin e (1) [facility] Work Phone: Start: 1988 Depression Screen Depression Screen [facility] Start: 1986 Lipid panel [facility] Start: 1982 PNEUMOCOCCAL (1 - PCV) PNEUMOCOCCAL (1 - PCV) [facility] Start: 1982 Pneumococcal 0-64 ye ars Vaccine (1 - PCV) Pneumococcal 0-64 years Vaccine (1 - PCV) [facility] Start: 1982 Pneumococcal 0-64 ye ars Vaccine (1 of 1 - PPSV23) Pneumococcal 0-64 years Vaccine (1 of 1 - PPSV23) [place] Start: 1982 Pneumococcal 0-64 ye ars Vaccine (1 of 2 - PPSV23) Pneumococcal 0-64 years Vaccine (1 of 2 - PPSV23) [facility] Phone: Start: 1981 COVID-19 Vaccine (1) COVID-19 Vaccin e (1) [facility] Start: 1976 COVID-19 Vaccine (#1) COVID-19 Vacci ne (#1) [facility] Start: 1976 HEPATITIS B (1 of 3 - 3-dose series) HEPATITIS B (1 of 3 - 3-dose series) [facility] Start: 1976 Hepatitis C screening [facility]atitis C [facility] Start: 1976 Screening for malign ant neoplasm of colon [facility] Albumin/Globulin ratio [facility] Anion gap measurement [facility] End: 02-19-2020 COVID-19 [facility] [place] Comment on above: One Time for 1 Occur rences starting 02/19/2020 until 02/19/2020 Once for 1 Occurrenc es starting 02/19/2020 until 02/19/2020 End: 05-13-2023 Echocardiography ECHO Cardiology Routine Primary hypertension Mixed hyperlipidemia Coronary artery disease involving chinik coronary artery of chinik heart without angina pectoris ST elevation myocardial infarction involving right coronary artery (HCC) S/P right coronary artery (RCA) stent placement 1 Occurrences starting 05/13/2022 until 05/13/2023 [facility] Work Phone: Comment on above: 1 Occurrences starti ng 05/13/2022 until 05/13/2023 EKG 12 Lead EKG 12 Lead ECG Routine 09/08/2022 6:41 PM EDT [employer] Work Phone: EKG 12 Lead - Chest Pain [facility] [employer] [place] EKG 12 Lead - Chest Pain EKG 12 Lead - Chest Pain ECG STAT 09/08/2021 9:48 AM EDT [facility] Work Phone: EKG 12 Lead - Chest Pain EKG 12 Lead - Chest Pain ECG STAT 10/23/2021 1:20 PM EDT [employer] Work Phone: Globulin [Mass/volum e] in Serum [facility] Patient referral [facility] Work Phone: End: 02-20-2020 Protime-INR Protime-INR Lab STAT One Time for 1 Occurrences starting 02/20/2020 until 02/20/2020 [facility] [place] Comment on above: One Time for 1 Occur rences starting 02/20/2020 until 02/20/2020 Protime-INR Protime-INR Lab STAT 02/20/2020 1:26 PM EDT [employer] [place] End: 11-08-2020 XR ANKLE LEFT (MIN 3 VIEWS) XR ANKLE LEFT (MIN 3 VIEWS) Imaging Routine Once for 1 Occurrences starting 11/08/2020 until 11/08/2020 [employer] Work Phone: Comment on above: Once for 1 Occurrenc es starting 11/08/2020 until 11/08/2020 XR ANKLE LEFT (MIN 3 VIEWS) XR ANKLE LEFT (MIN 3 VIEWS) Imaging STAT 11/08/2020 10:03 AM [employer] Work Phone: End: 02-19-2020 XR CHEST PORTABLE XR CHEST PORTABLE Imaging STAT Once for 1 Occurrences starting 02/19/2020 until 02/19/2020 [facility] [place] Comment on above: Once for 1 Occurrenc es starting 02/19/2020 until 02/19/2020 XR CHEST PORTABLE XR CHEST PAULINA BLE Imaging STAT 02/19/2020 1:[address] [facility] [place] End: 04-01-2020 XR FOOT LEFT (MIN 3 VIEWS) XR FOOT LEFT (MIN 3 VIEWS) Imaging Routine Once for 1 Occurrences starting 04/01/2020 until 04/01/2020 [place] Comment on above: Once for 1 Occurrenc es starting 04/01/2020 until 04/01/2020 XR FOOT LEFT (MIN 3 VIEWS) XR FOOT LEFT (MIN 3 VIEWS) Imaging STAT 04/01/2020 9[facility] [place] End: 04-14-2019 XR HAND RIGHT (2 VIEWS) XR HAND RIGHT (2 VIEWS) Imaging STAT Once for 1 Occurrences starting 04/14/2019 until 04/14/2019 [facility] [place] Comment on above: Once for 1 Occurrenc es starting 04/14/2019 until 04/14/2019 XR HAND RIGHT (2 VIEWS) XR HAND RIGHT (2 VIEWS) Imaging STAT 04/14/2019 10:10 AM [facility] [place] End: 09-23-2021 XR HAND RIGHT (MIN 3 VIEWS) [employer] Work Phone: Comment on above: Once for 1 Occurrenc es starting 09/23/2021 until 09/23/2021 End: 12-02-2021 XR KNEE RIGHT (MIN 4 VIEWS) [facility] [employer] Phone: Comment on above: Once for 1 Occurrenc es starting 12/02/2021 until 12/02/2021 End: 04-01-2020 XR TOE LEFT (MIN 2 VIEWS) XR TOE LEFT (MIN 2 VIEWS) Imaging Routine Once for 1 Occurrences starting 04/01/2020 until 04/01/2020 [facility] [place] Comment on above: Once for 1 Occurrenc es starting 04/01/2020 until 04/01/2020 [facility] Problems Active Problems Problem Classification Problem Date Documented Da te Episodic/Chronic Acute myocardial infarction (20 sources) Myocardial infarction; Translations: [Acute myocardial infarction, unspecified] Onset: 2 06-24-2021 Chronic Alcohol-related disorders (2 sources) Alcohol use, unspecified with intoxication, uncomplicated; Translations: [Alcohol abuse, unspecified] Onset: 3 Episodic Anal and rectal conditions (1 source) Perianal abscess 06-02-2015 Episodic Anxiety disorders (20 sources) Mixed anxiety and depressive disorder; Translations: [Posttraumatic stress disorder] Onset: 2 Resolved: 2 06-02-2015 Chronic Cardiac arrest and ventricular fibrillation (7 sources) Cardiac arrest; Translations: [Cardiac arrest] 11-17-2020 Chronic Chronic obstructive pulmonary disease and bronchiectasis (3 sources) Bronchitis; Translations: [Bronchitis, not specified as acute or chronic] Episodic Coma; stupor; and brain damage (5 sources) Anoxic encephalopathy; Translations: [Anoxic brain damage, not elsewhere classified] 11-17-2020 Chronic Complications of surgical procedures or medical care (4 sources) Post-surgical malabsorption; Translations: [Postsurgical malabsorption, not elsewhere classified] Onset: 3 05-25-2012 Chronic Coronary atherosclerosis and other heart disease (20 sources) Coronary atherosclerosis; Translations: [Atherosclerotic heart disease of chinik coronary artery without angina pectoris] Onset: 2 Chronic Coronary atherosclerosis and other heart disease (9 sources) Presence of coronary angioplasty implant and graft; Translations: [Stented coronary artery] Onset: 2 01-25-2023 Episodic Diabetes mellitus without complication (20 sources) Impaired fasting glycemia; Translations: [Impaired fasting glucose] Episodic Disorders of lipid metabolism (20 sources) Pure hypercholesterolemia; Translations: [Pure hypercholesterolemia, unspecified] Onset: 1 Chronic Esophageal disorders (20 sources) Gastroesophageal reflux disease; Translations: [Gastro-esophageal reflux disease without esophagitis] Chronic Essential hypertension (20 sources) Essential hypertension; Translations: [Hypertensive disorder] Onset: 1 Chronic Gastroduodenal ulcer (except hemorrhage) (20 sources) Chronic gastric ulcer without hemorrhage AND without perforation; Translations: [Chronic gastric ulcer without hemorrhage or perforation] Onset: 8 Resolved: 2 Chronic Gastroduodenal ulcer (except hemorrhage) (1 source) H/O: peptic ulcer 06-02-2015 Episodic Genitourinary symptoms and ill-defined conditions (20 sources) Acute retention of urine ; Translations: [Delay when starting to pass urine] 06-02-2015 Episodic Comment on above: started taking floma x Headache; including migraine (20 sources) Migraine with aura; Translations: [Migraine with aura, not intractable, without status migrainosus] 12-17-2020 Chronic Headache; including migraine (6 sources) Headache; Translations: [Headache] 06-24-2021 Episodic Mood disorders (20 sources) Depressive disorder; Translations: [Major depressive disorder, single episode, unspecified] 06-10-2015 Chronic Nonspecific chest pain (16 sources) Atypical chest pain; Translations: [Other chest pain] Onset: 2 Episodic Nutritional deficiencies (5 sources) Vitamin D deficiency; Translations: [Vitamin D deficiency, unspecified] 12-18-2020 Chronic Nutritional deficiencies (5 sources) Cobalamin deficiency; Translations: [Deficiency of other specified B group vitamins] 12-18-2020 Episodic Open wounds of extremities (3 sources) Traumatic amputation of finger; Translations: [Partial traumatic transphalangeal amputation of unspecified finger, initial encounter] Onset: 0 05-29-2019 Chronic Open wounds of extremities (1 source) Laceration without foreign body of left middle finger without damage to nail, sequela; Translations: [Laceration of left middle finger, foreign body presence unspecified, nail damage status unspecified, sequela] Episodic Open wounds of head; neck; and trunk (2 sources) Laceration of forehead; Translations: [Laceration without foreign body of other part of head, initial encounter] Onset: 3 Episodic Other aftercare (1 source) Wound ; Translations: [Encounter for other specified surgical aftercare] Episodic Other bone disease and musculoskeletal deformities (1 source) Absent finger; Translations: [Amputation of finger without complication, subsequent encounter] Chronic Other bone disease and musculoskeletal deformities (1 source) Amputee Chronic Other circulatory disease (5 sources) History of cardiac arrest; Translations: [Personal history of sudden cardiac arrest] 12-18-2020 Episodic Other connective tissue disease (1 source) Pain in right hand; Translations: [Hand pain, right] Other ear and sense organ disorders (1 source) Hearing loss 06-24-2021 Chronic Other ear and sense organ disorders (1 source) Acute otitis externa of right ear; Translations: [Acute otitis externa of right ear, unspecified type] Other endocrine disorders (1 source) Hypoglycemia 06-02-2015 Chronic Comment on above: pt states if below 5 4 symptomatic has passed out before Other fractures (1 source) Closed fracture lumbar vertebra, transverse process ; Translations: [Unspecified fracture of unspecified lumbar vertebra, initial encounter for closed fracture] Episodic Other fractures (5 sources) Unspecified fracture of second lumbar vertebra, initial encounter for closed fracture; Translations: [Unspecified fracture of second lumbar vertebra, initial encounter for closed fracture] Onset: 2 Resolved: 2 Episodic Other fractures (2 sources) Unspecified fracture of third lumbar vertebra, initial encounter for closed fracture; Translations: [Unspecified fracture of third lumbar vertebra, initial encounter for closed fracture] Onset: 3 Episodic Other gastrointestinal disorders (2 sources) History of bariatric surgical procedure; Translations: [Bariatric surgery status] Episodic Other gastrointestinal disorders (3 sources) H/O: GIT by-pass; Translations: [Bariatric surgery status] 12-18-2020 Episodic Other hematologic conditions (5 sources) Raised cardiac enzyme or marker; Translations: [Other specified abnormalities of plasma proteins] 11-17-2020 Episodic Other injuries and conditions due to external causes (1 source) Closed injury of head; Translations: [Unspecified injury of head, initial encounter] Episodic Other injuries and conditions due to external causes (1 source) Injury of head; Translations: [Unspecified injury of head, initial encounter] Episodic Other injuries and conditions due to external causes (1 source) Unspecified injury of head, initial encounter; Translations: [Unspecified injury of head, initial encounter] Onset: 2 Episodic Other lower respiratory disease (1 source) Cough; Translations: [Cough] Episodic Other lower respiratory disease (1 source) Hemoptysis; Translations: [Hemoptysis] Episodic Other lower respiratory disease (1 source) Dyspnea; Translations: [Shortness of breath] Episodic Other male genital disorders (20 sources) Impotence of organic origin; 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 dysfunction, unspecified] Chronic Other nervous system disorders (10 sources) Chronic pain; Translations: [Other chronic pain] Chronic Other nervous system disorders (2 sources) Other chronic pain Chronic Other nervous system disorders (1 source) Postoperative pain ; Translations: [Postoperative pain] Episodic Other nervous system disorders (5 sources) Unresponsive ; Translations: [Other symptoms and signs involving cognitive functions and awareness] 11-17-2020 Episodic Other nutritional; endocrine; and metabolic disorders (20 sources) Obesity; Translations: [Obesity, unspecified] 11-18-2020 Chronic Other nutritional; endocrine; and metabolic disorders (2 sources) Body mass index 30+ - obesity; Translations: [Body Mass Index 31.0-31.9, adult] Chronic Other upper respiratory disease (20 sources) Seasonal allergy; Translations: [Other seasonal allergic rhinitis] Chronic Other upper respiratory disease (3 sources) Other seasonal allergic rhinitis Chronic Other upper respiratory disease (1 source) Nasal congestion; Translations: [Nasal congestion] Episodic Other upper respiratory infections (4 sources) Acute frontal sinusitis; Translations: [Acute frontal sinusitis, unspecified] Episodic Residual codes; unclassified (20 sources) Insomnia; Translations: [Insomnia, unspecified] Episodic Residual codes; unclassified (5 sources) Amnesia; Translations: [Other amnesia] 12-16-2020 Episodic Residual codes; unclassified (1 source) Other specified postprocedural states Episodic Spondylosis; intervertebral disc disorders; other back problems (20 sources) Prolapsed lumbar intervertebral disc; Translations: [Other intervertebral disc displacement, lumbar region] Onset: 4 Chronic Sprains and strains (6 sources) Shoulder strain; Translations: [Sprain of left ankle] Onset: 2 Episodic Substance-related disorders (1 source) Smoker 06-02-2015 Chronic Comment on above: Added secondary to d ocumentation in Social History. Syncope (1 source) Syncope and collapse; Translations: [Syncope and collapse] Episodic Unclassified (1 source) Sprain of left foot; Translations: [Sprain of left foot, initial encounter] Unclassified (5 sources) Signs of return of spontaneous circulation; Translations: [Signs of return of spontaneous circulation] 11-17-2020 Viral infection (1 source) Other specified viral infection; Translations: [COVID-19] Episodic Past or Other Problems Problem Classification Problem Date Documented Da te Episodic/Chronic Abdominal pain (10 sources) Epigastric pain; Translations: [Epigastric pain] Onset: 8 Episodic Administrative/social admission (4 sources) Patient encounter status; Translations: [Dietary counseling and surveillance] Onset: 3 05-25-2012 Episodic Cardiac dysrhythmias (11 sources) Sinus bradycardia; Translations: [Bradycardia, unspecified] Onset: 3 11-18-2020 Episodic Complications of surgical procedures or medical care (2 sources) Wound dehiscence; Translations: [Disruption of wound, unspecified, initial encounter] Onset: 0 05-29-2019 Episodic Disorders of teeth and jaw (1 source) Toothache; Translations: [Pain, dental] Episodic Gastrointestinal hemorrhage (7 sources) Acute gastric ulcer with hemorrhage; Translations: [Upper gastrointestinal bleeding] Onset: 8 Resolved: 2 Episodic Inflammatory conditions of male genital organs (6 sources) Abscess of scrotum; Translations: [Inflammatory disorders of scrotum] Onset: 2 Resolved: 2 Episodic Other aftercare (1 source) Encounter for other specified surgical aftercare; Translations: [Encounter for other specified surgical aftercare] Onset: 2 Episodic Other connective tissue disease (1 source) Swelling of finger Episodic Other fractures (1 source) Unspecified fracture of unspecified lumbar vertebra, initial encounter for closed fracture; Translations: [Unspecified fracture of unspecified lumbar vertebra, initial encounter for closed fracture] Onset: 2 Episodic Other non-traumatic joint disorders (2 sources) Pain in right knee; Translations: [Pain in joint, lower leg] Onset: 2 Episodic Other nutritional; endocrine; and metabolic disorders (4 sources) Overweight; Translations: [Overweight] Onset: 3 05-25-2012 Episodic Residual codes; unclassified (1 source) Other specified postprocedural states; Translations: [Other specified postprocedural states] Onset: 3 Episodic Skin and subcutaneous tissue infections (3 sources) Cutaneous abscess, unspecified; Translations: [Abscess of finger of right hand] Onset: 0 06-19-2019 Episodic Spondylosis; intervertebral disc disorders; other back problems (20 sources) Acute back pain with sciatica; Translations: [Lumbago with sciatica, left side] Onset: 3 Episodic Superficial injury; contusion (4 sources) Contusion of right hand; Translations: [Contusion of right hand, initial encounter] Onset: 2 Episodic Unclassified (1 source) Chronic cough R05.3 Procedures Date Procedure Procedure Detail Performing Clinician Start: 02-15-2023 X-ray of lumbar spin e, two or three views DO [employer] Work Phone: Start: 01-26-2023 Excision of lumbar intervertebral disc DO [employer] Work Phone: Start: 01-26-2023 X-ray of lumbar spin e, single view DO [employer] Work Phone: Start: 01-24-2023 Plain chest X-ray DO [facility] Phone: Start: 01-24-2023 MRI of lumbar spine with contrast DO [employer] Work Phone: Start: 09-08-2022 Ecg routine ecg w/le ast 12 lds w/i&r Mely O Erich DO Work Phone: Start: 07-21-2022 Echo tthrc r-t 2d w/wom-mode compl spec&colr d Jazmine Estrella DO Work Phone: Start: 05-13-2022 History of placement of stent for coronary artery disease S/P right coronary artery (RCA) stent placement Jazmine Estrella DO Work Phone: Start: 03-23-2022 Basic metabolic pane l calcium total Vicki Shandra DO Work Phone: Start: 03-23-2022 Urnls dip stick/tabl et rgnt auto w/o microscopy Vicki Devi DO Work Phone: Start: 03-23-2022 Radiologic exam ches t 2 views Vicki Devi DO Work Phone: Start: 03-23-2022 Radex shoulder compl ete minimum 2 views Vicki Devi DO Work Phone: Start: 03-23-2022 End: 03-23-2022 Ct cervical spine w/o contrast material Vicki Devi DO Work Phone: Start: 03-23-2022 Ct head/brain w/o co ntrast material Vicki Devi DO Work Phone: Start: 10-23-2021 Ct abdomen & pelvis w/contrast material Elijah Walker DO Work Phone: Start: 10-23-2021 Ct cervical spine w/ o contrast material Elijah Gomesfield DO Work Phone: Start: 10-23-2021 Ct thorax w/contrast material Elijah Gomesfield DO Work Phone: Start: 10-23-2021 Assay of ethanol Moira Gomesfield DO Work Phone: Start: 10-23-2021 End: 10-23-2021 Comprehensive metabolic panel Elijah Walker DO Work Phone: Start: 10-23-2021 Ecg routine ecg w/le ast 12 lds w/i&r Elijah Walker DO Work Phone: Start: 10-23-2021 Ct head/brain w/o co ntrast material Elijah Gomesfield DO Work Phone: Start: 09-08-2021 Radiologic exam ches t single view Tariq Gonzalez MD Work Phone: Start: 09-08-2021 Comprehensive metabo lic panel Tariq Gonzalez MD Work Phone: Start: 09-08-2021 Ecg routine ecg w/le ast 12 lds w/i&r Tariq Gonzalez MD Work Phone: Start: 06-18-2021 Us scrotum & contents K yahir Devi DO Work Phone: Start: 02-24-2021 Ct angiography chest w/contrast/noncontrast Pj Werner MD Work Phone: Start: 02-24-2021 COVID-19, RAPID Pj Werner MD Work Phone: Start: 02-24-2021 Comprehensive metabo lic panel Pj Werner MD Work Phone: Start: 02-24-2021 Ecg routine ecg w/le ast 12 lds w/i&r Tariq Gonzalez MD Work Phone: Start: 10-24-2020 COVID-19, RAPID Karuna Shin MD Work Phone: Start: 10-24-2020 Iaad ia streptococcu s group a Karuna Shin MD Work Phone: Start: 10-15-2020 End: 10-15-2020 Comprehensive metabolic panel Karuna Shin MD Work Phone: Start: 10-15-2020 Us abdominal real ti me w/image limited Karuna Shin MD Work Phone: Start: 10-15-2020 Ecg routine ecg w/le ast 12 lds w/i&r Karuna Shin MD Work Phone: Start: 08-07-2020 Gluc bld gluc mntr d ev cleared fda spec home use Pete Lugo Work Phone: Start: 02-20-2020 Assay of ethanol Maurilio Shin Work Phone: Start: 02-20-2020 Assay of magnesium Missy Shin Work Phone: Start: 02-20-2020 Assay of troponin quantitative Karuna Shin Work Phone: Start: 02-20-2020 Blood count complete auto&auto difrntl wbc Karuna Shin Work Phone: Start: 02-20-2020 Comprehensive metabo lic panel Karuna Shin Work Phone: Start: 02-20-2020 Natriuretic peptide Ran maria luz Shin Work Phone: Start: 04-14-2019 Basic metabolic pane l calcium total Ernestina Joseph Work Phone: Start: 04-14-2019 Blood count complete auto&auto difrntl wbc Ernestina Joseph Work Phone: Start: 04-13-2019 Radex shoulder compl ete minimum 2 views Deandre O Akusoba Work Phone: Start: 06-10-2015 I & D perianal abscess Crissy Mccain Bypass of stomach Basenella Hadd ad Cardiac catheterization Dustin Siegel MD Work Phone: Colonoscopy Master barillas MD Work Phone: Extraction of wisdom tooth M zenaida Siegel MD Work Phone: H/O Spinal surgery Crissy Had dad hand 1 Basenella Mccain Comment on above: steel plate in hand Hernia repair Master harvey MD Work Phone: History of gastroint estinal tract bypass History of Monica-en-Y gastric bypass DO Meng Reid Work Phone: History of placement of stent for coronary artery disease Status post insertion of drug eluting coronary artery stent Master Siegel MD Work Phone: History of placement of stent for coronary artery disease S/P right coronary artery (RCA) stent placement Pharmacy Resident [facility] Work Phone: History of placement of stent for coronary artery disease Hx of heart artery stent DO Meng Reid Work Phone: Operative procedure on hand Master Siegel MD Work Phone: Procedure on back Master duran MD Work Phone: Repair of musculoten dinous cuff of shoulder Master Siegel MD Work Phone: Shoulder region stru cture (body structure) Crissy Mccain Results Test Name Value Interpretation Reference Range Facility Assisted Documentson 02-17-2023 Assisted Documents [id number] Normal [facility] XR lumbar spine 2-3V*on XR lumbar spine 2-3V* [facility] Main [place] [address] [place] [address] XRay Report Signed Patient: Elijah Wylie Jr MR#: [id number] : 1975 Acct:[id number] Age/Sex: 47 / M ADM Date: 02/15/23 Loc: XD Room: Type: [facility] Attending Dr: Phoenix Chavez MD Copies to: Phoenix Chavez MD Ordering Provider: Phoenix Chavez MD Date of Service: 02/15/23 XR/XR lumbar spine 2-3V*: [id number] LUMBAR SPINE - 2 views COMPARISON: 01/26/2023 and MRI 01/24/2023 CLINICAL DATA: Right leg pain and tingling. Recent L4-5 discectomy. AP and lateral standing views were obtained. No acute fractures are identified. No significant displacement is seen. There is mild disc space narrowing at L4-5 and the lumbosacral junction. There is minor thoracolumbar endplate spurring. Mild lower lumbar facet hypertrophy is seen. The SI joints are intact. No paraspinal soft tissue abnormalities are present. XR/XR lumbar spine 2-3V* IMPRESSION: MILD DEGENERATIVE CHANGE. Impression dictated by: Shasha Hyatt M.D.02/15/2023 1:26 PM Dictation Location: [place] [address] Transcribed By: [facility] 02/15/23 1326 Dictated By: Shasha Hyatt MD 02/15/23 1323 Signed By: 02/15/23 1326 Normal [facility] Amphetamine Screen Ql (U)Ord ered By: Mendoza Steward on 01-26-2023 Amphetamines Ql (U) Negative Negative [facility] Barbiturates [Presence] in U rine by Screen methodOrdered By: Mendoza Steward on 01-26-2023 Barbiturates Screen Ql (U) Negative Negative [facility] Basic Metabolic Panelon 01-14 Anion gap [Moles/Vol] 10.5 mmol/L Normal 6.0-15.0 [facility] Comment on above: Performed By: #### B MP, CBC #### [facility] [address] Calcium [Mass/Vol] 8.8 mg/dL Normal 8.6-10.3 [facility] Comment on above: Performed By: #### B MP, CBC #### [facility] [address] Chloride [Moles/Vol] 110 mmol/L High 98-107 [facility] Comment on above: Performed By: #### B MP, CBC #### [facility] [address] CO2 [Moles/Vol] 26.7 mmol/L Normal 21.0-31.0 [facility] Comment on above: Performed By: #### B MP, CBC #### [facility] [address] Creatinine [Mass/Vol] 0.69 mg/dL Low 0.70-1.30 [facility] Comment on above: Performed By: #### B MP, CBC #### [facility] [address] [place] [address] [place] Creatinine Clr Calc Pharmacy 185.92 Normal [facility] Comment on above: Result Comment: PERF ORMED BY: [place] [address] PATHOLOGIST MOLD FILLER JASPER MELCHOR M.D. Performed By: #### B MP, CBC #### [facility] [address] GFR/1.73 sq M.predicted MDRD (S/P/Bld) [Vol rate/Area] mL/min/{1.73_m2} Normal [facility] Comment on above: Performed By: #### B MP, CBC #### [address] Glucose [Mass/Vol] 136 mg/dL High 70-100 [facility] Comment on above: Result Comment: [facility] Glucose Reference Range is dependent on time and content of last meal. Glucose of more than 200 mg/dL in a nonstressed, ambulatory subject supports the diagnosis of Diabetes Mellitus. ADA recommended reference range Performed By: #### B MP, CBC #### [address] Potassium [Moles/Vol] 4.2 mmol/L Normal 3.5-5.1 [facility] Comment on above: Performed By: #### B MP, CBC #### [address] Sodium [Moles/Vol] 143 mmol/L Significant change down 136-145 [facility] Comment on above: Performed By: #### B MP, CBC #### [address] Urea nitrogen [Mass/Vol] 9 mg/dL Normal 7-25 [facility] Comment on above: Performed By: #### B MP, CBC #### [place] [address] [place] Basophils Auto (Bld) [#/Vol] Ordered By: Nano Gates on 01-26-2023 Basophils (Bld) [#/Vol] 0.1 10*3/uL 0.0-0.2 [facility] Basophils/100 WBC Auto (Bld) Ordered By: Nano Gates on 01-26-2023 Basophils/100 WBC (Bld) 0.6 % . [facility] Benzodiazepines Screen Ql (U )Ordered By: Mendoza Steward on 01-26-2023 Benzodiazepines Ql (U) Positive Negative [facility] Benzoylecgonine [Presence] i n Urine by Screen methodOrdered By: Mendoza Steward on 01-26-2023 Benzoylecgonine Screen Ql (U) Negative Negative [facility] Calcium [Mass/volume] in Ser um or PlasmaOrdered By: Nano Gates on 01-26-2023 Calcium [Mass/Vol] 8.8 mg/dL 8.6-10.[address] [facility] Cannabinoids [Presence] in U rine by Screen methodOrdered By: Mendoza Steward on 01-26-2023 Cannabinoids Screen Ql (U) Positive Negative [facility] Comment on above: These are unconfirme d results and should not be used for legal purposes. Drug Cut-Off Concentration: AMPH 1000 ng/mL GEETA 200 ng/mL QUIRINO 200 ng/mL COCM 300 ng/mL OP 300 ng/mL PCP 25 ng/mL THC 20 ng/mL Carbon dioxide, total [Moles /volume] in Serum or PlasmaOrdered By: Nano Gates on 01-26-2023 CO2 [Moles/Vol] 26.7 mmol/L 21.0-31.0 [facility] Chloride [Moles/volume] in S krystal or PlasmaOrdered By: Nano Gates on 01-26-2023 Chloride [Moles/Vol] 110 mmol/L 98-107 [facility] Complete Blood Count Auto Di ffon 01-26-2023 Basophils (Bld) [#/Vol] 0.1 10*3/uL Normal 0.0-0.2 [facility] Comment on above: Result Comment: PERF ORMED BY: [facility] [address] [place] [id number] PATHOLOGIST MOLD FILLER JASPER MELCHOR M.D. Performed By: #### B MP, CBC ####[facility] [id number] [place] [id number] [place] Basophils/100 WBC (Bld) 0.6 % Normal . [facility] Comment on above: Performed By: #### B MP, CBC ####[facility] [id number] [place] [id number] [place] Eosinophils (Bld) [#/Vol] 0.0 10*3/uL Normal 0.0-0.45 [facility] Comment on above: Performed By: #### B MP, CBC ####[address] Eosinophils/100 WBC (Bld) 0.0 % Normal . [facility] Comment on above: Performed By: #### B MP, CBC ####[address] Erythrocyte distribution width (RBC) [Ratio] 16.6 % High 12.0-14.8 [facility] Comment on above: Performed By: #### B MP, CBC ####[address] Hematocrit (Bld) [Volume fraction] 38.8 % Normal 38.8-50.0 [facility] Comment on above: Performed By: #### B MP, CBC ####[address] Hemoglobin (Bld) [Mass/Vol] 12.6 g/dL Low 13.0-17.0 [facility] Comment on above: Performed By: #### B MP, CBC ####[address] Lymphocytes (Bld) [#/Vol] 0.8 10*3/uL Low 1.00-4.8 [facility] Comment on above: Performed By: #### B MP, CBC ####[address] Lymphocytes/100 WBC (Bld) 5.1 % Normal . [facility] Comment on above: Performed By: #### B MP, CBC ####[address] MCH (RBC) [Entitic mass] 28.2 pg Normal 27.5-35.2 [facility] Comment on above: Performed By: #### B MP, CBC ####[address] MCV (RBC) [Entitic vol] 87.1 fL Normal 83.5-101 [facility] Comment on above: Performed By: #### B MP, CBC ####[address] Mean Corpuscular HGB Conc 32.4 g/dL Low 32.5-35.6 [facility] Comment on above: Performed By: #### B MP, CBC ####[address] Monocytes (Bld) [#/Vol] 0.3 10*3/uL Normal 0.0-0.8 [facility] Comment on above: Performed By: #### B MP, CBC ####[address] Monocytes/100 WBC (Bld) 2.0 % Normal . [facility] Comment on above: Performed By: #### B MP, CBC ####[address] Neutrophils (Bld) [#/Vol] 15.1 10*3/uL High 1.8-7.7 [facility] Comment on above: Performed By: #### B MP, CBC ####[address] Neutrophils/100 WBC (Bld) 92.3 % Normal . [facility] Comment on above: Performed By: #### B MP, CBC ####[address] NRBC% 0.0 /100{WBC} Normal 0-0.5 [facility] Comment on above: Performed By: #### B MP, CBC ####[address] Platelet mean volume (Bld) [Entitic vol] 11.9 fL High 6.6-10.1 [facility] Comment on above: Performed By: #### B MP, CBC ####[address] Platelets (Bld) [#/Vol] 114 10*3/uL Low 150-450 [facility] Comment on above: Performed By: #### B MP, CBC ####[place] [id number] [address] RBC (Bld) [#/Vol] 4.46 10*6/uL Normal 3.90-5.60 [facility] Comment on above: Performed By: #### B MP, CBC ####[address] WBC (Bld) [#/Vol] 16.3 10*3/uL High 4.1-10.5 [facility] Comment on above: Performed By: #### B MP, CBC ####[address] Creatinine [Mass/volume] in Serum or PlasmaOrdered By: Nano Gates on 01-26-2023 Creatinine [Mass/Vol] 0.69 mg/dL 0.70-1.30 [facility] Drug Screen,Urineon 01-27-20 23 Amphetamine Screen,Urine Negative Normal Negative [facility] Comment on above: Performed By: #### U RDS #### [address] Barbiturate Screen,Urine Negative Normal Negative [facility] Comment on above: Performed By: #### U RDS #### [address] Benzodiazepines Screen,Urine Positive High Negative [facility] Comment on above: Performed By: #### U RDS #### [address] Cannabinoid Screen,Urine Positive High Negative [facility] Comment on above: Result Comment: Thes e are unconfirmed results and should not be used for legal purposes. Drug Cut-Off Concentration: AMPH 1000 ng/mL GEETA 200 ng/mL QUIRINO 200 ng/mL COCM 300 ng/mL OP 300 ng/mL PCP 25 ng/mL THC 20 ng/mL PERFORMED BY: [place] [address] PATHOLOGIST MOLD FILLER JIANLAN SUN M.D. Performed By: #### U RDS #### [facility] [address] Cocaine Screen,Urine Negative Normal Negative [facility] Comment on above: Performed By: #### U RDS #### [facility] [address] Opiate Screen,Urine Positive High Negative [facility] Comment on above: Performed By: #### U RDS #### [facility] [address] Phencyclidine Screen,Urine Negative Normal Negative [facility] Comment on above: Performed By: #### U RDS #### [facility] [address] Eosinophils Auto (Bld) [#/Vo l]Ordered By: Nano Gates on 01-26-2023 Eosinophils (Bld) [#/Vol] 0.0 10*3/uL 0.0-0.45 [facility] Eosinophils/100 WBC Auto (Bl d)Ordered By: Nano Gates on 01-26-2023 Eosinophils/100 WBC (Bld) 0.0 % . [facility] Erythrocyte distribution wid th Auto (RBC) [Ratio]Ordered By: Nano Gates on 01-26-2023 Erythrocyte distribution width (RBC) [Ratio] 16.6 % 12.0-14.8 [facility] Glucose [Mass/volume] in Ser um or PlasmaOrdered By: Nano Gates on 01-26-2023 Glucose [Mass/Vol] 136 mg/dL 70-[address] [facility] Comment on above: ADA recommended refe rence rangeRandom Glucose Reference Range is dependent on time and content of last meal. Glucose of more than 200 mg/dL in a nonstressed, ambulatory subject supports the diagnosis of Diabetes Mellitus. Hematocrit Auto (Bld) [Volum e fraction]Ordered By: Nano Gates on 01-26-2023 Hematocrit (Bld) [Volume fraction] 38.8 % 38.8-50.0 [facility] Hemoglobin [Mass/volume] in BloodOrdered By: Naon Gates on 01-26-2023 Hemoglobin (Bld) [Mass/Vol] 12.6 g/dL 13.0-17.0 [facility] Valentino 01-26-2023 L --------- ----- Specimen: [id number] Received: 01/26/23 Status: LIZETH Sarabia Num: [id number] Spec Type: Surgical Subm Dr: Phoenix Chavez MD Tissues: A Disc - Intervertebral/Lumbar/Cervica l (LUMBAR DISC) Procedures: Morgan GUAJARDO/Wade L3 ----- Age/ Patient Sex Location Account Attending Physician ----- Elijah Wylie Jr/Nella 4N [id number] Nano Gates MD ----- SPEC NUM: [id number] RECD: 01/26/23 STATUS: LIZETH SARABIA NUM: [id number] DELISA: 01/26/23 DR: Phoenix Chavez MD ENTERED: 01/26/[address] [facility] [address]: LUPE TYPE: Surgical DEPT: S ORDERED: BENNETT, Gross/Micro L3 ORDERED: BENNETT, Gross/Micro L3 Pathological Diagnosis Disk, L4-5, excision: - Degenerated cartilaginous tissue Clinical Information Radiculopathy Gross Description Received in formalin labeled with the patient's name, date of and disc is a 4.0 x 2.0 x 0.8 cm aggregate of rosa-lopez fibrocartilaginous tissue. [employer] House[employer] sections are submitted in one cassette labeled A1. Microscopic Description One H E slide reviewed. The microscopic examination confirms the diagnosis. CPT Codes 20161 ----- ----- Specimen: [id number] Received: 01/26/23 Status: LIZETH Sarabia Num: [id number] Spec Type: Surgical Subm Dr: Phoenix Chavez MD Tissues: A Disc - Intervertebral/Lumbar/Cervica l (LUMBAR DISC) Procedures: BENNETT Gross/Micro L3 ----- Patient: Elijah Wylie [id number] (Continued) ----- Signed (signature on file) Pal Barakat MD 01/30/23 1517 Normal [facility] Leukocytes [#/volume] correc max for nucleated erythrocytes in Blood by Automated counOrdered By: Nano Gates on 01-26-2023 WBC corrected for nucl RBC Auto (Bld) [#/Vol] 16.3 10*3/uL 4.1-10.5 [facility] Lymphocytes Auto (Bld) [#/Vo l]Ordered By: Nano Gates on 01-26-2023 Lymphocytes (Bld) [#/Vol] 0.8 10*3/uL 1.00-4.8 [facility] Lymphocytes/100 WBC Auto (Bl d)Ordered By: Nano Gates on 01-26-2023 Lymphocytes/100 WBC (Bld) 5.1 % . [facility] MCH Auto (RBC) [Entitic mass ]Ordered By: Nano Gates on 01-26-2023 MCH (RBC) [Entitic mass] 28.2 pg 27.5-35.2 [facility] MCHC Auto (RBC) [Mass/Vol]Or dered By: Nano Gates on 01-26-2023 MCHC (RBC) [Mass/Vol] 32.4 g/dL 32.5-35.6 [facility] MCV Auto (RBC) [Entitic vol] Ordered By: Nano Gates on 01-26-2023 MCV (RBC) [Entitic vol] 87.1 fL 83.5-101 [facility] Monocytes Auto (Bld) [#/Vol] Ordered By: Nano Gates on 01-26-2023 Monocytes (Bld) [#/Vol] 0.3 10*3/uL 0.0-0.8 [facility] Monocytes/100 WBC Auto (Bld) Ordered By: Nano Gates on 01-26-2023 Monocytes/100 WBC (Bld) 2.0 % . [facility] Neutrophils Auto (Bld) [#/Vo l]Ordered By: Nano Gates on 01-26-2023 Neutrophils (Bld) [#/Vol] 15.1 10*3/uL 1.8-7.7 [facility] Neutrophils/100 WBC Auto (Bl d)Ordered By: Nano Gates on 01-26-2023 Neutrophils/100 WBC (Bld) 92.3 % . [facility] No Panel InformationOrdered By: Nano Gates on 01-26-2023 Estimated GFR (CKD-EPI) > 60.0 mL/Min [facility] Creatinine Clearance (Chem 185.92 [facility] Nucleated erythrocytes [Pres ence] in Blood by Automated countOrdered By: Nano Gates on 01-26-2023 Nucleated RBC Auto Ql (Bld) 0.0 /100{WBC} 0-0.5 [facility] Opiates [Presence] in Urine by Screen methodOrdered By: Mendoza Steward on 01-26-2023 Opiates Screen Ql (U) Positive Negative [facility] Phencyclidine Screen Ql (U)O rdered By: Mendoza Steward on 01-26-2023 Phencyclidine Ql (U) Negative Negative [facility] Platelet mean volume Auto (B ld) [Entitic vol]Ordered By: Nano Gates on 01-26-2023 Platelet mean volume (Bld) [Entitic vol] 11.9 fL 6.6-10.1 [facility] Platelets Auto (Bld) [#/Vol] Ordered By: Nano Gates on 01-26-2023 Platelets (Bld) [#/Vol] 114 10*3/uL 150-450 [facility] Potassium [Moles/volume] in Serum or PlasmaOrdered By: Nano Gates on 01-26-2023 Potassium [Moles/Vol] 4.2 mmol/L 3.5-5.1 [facility] RBC Auto (Bld) [#/Vol]Ordere d By: Nano Gates on 01-26-2023 RBC (Bld) [#/Vol] 4.46 10*6/uL 3.90-5.60 [facility] Serum or plasma anion gap de terminationOrdered By: Nano Gates on 01-26-2023 Anion gap [Moles/Vol] 10.5 mmol/L 6.0-15.0 [facility] Sodium [Moles/volume] in Ser um or PlasmaOrdered By: Nano Gates on 01-26-2023 Sodium [Moles/Vol] 143 mmol/L 136-[address] [facility] Comment on above: Delta: 137 on -2154 Urea nitrogen [Mass/volume] in Serum or PlasmaOrdered By: Nano Gates on 01-26-2023 Urea nitrogen [Mass/Vol] 9 mg/dL 7-25 [facility] WBC Auto (Bld) [#/Vol]Ordere d By: Nano Gates on 01-26-2023 WBC (Bld) [#/Vol] 16.3 10*3/uL 4.1-10.5 [facility] XR lumbar spine 1Von 023 XR lumbar spine 1V [facility] [address] XRay Report Signed Patient: Elijah Wylie Jr MR#: [id number] : 1975 Acct:[id number] Age/Sex: 47 / M ADM Date: 01/24/23 Loc: 4N Room: [address] [place] [address] Type: ADM IN Attending Dr: Nano Gates MD Copies to: MD Nano Ch MD Ordering Provider: Phoenix Chavez MD Date of Service: 01/26/23 XR/XR lumbar spine 1V: . Intraoperative study. Reason for exam: Lumbar discectomy L4-L5 Findings: 1 images were obtained intraoperatively. Cumulative Air Kerma in mGy: 0.145 mGy XR/XR lumbar spine 1V Impression: Intraoperative study. Impression dictated by: Omero Winston Jr., D.O.01/26/2023 4:14 PM Dictation Location: [place] [address] Transcribed By: [facility] 01/26/231613 Dictated By: Omero Winston Jr, DO 01/26/231613 Signed By: 01/26/231613 Normal [facility] ECG 12 lead ECGon 01-25-2023 ECG 12 lead ECG [facility] [address] Electrocardiograph Report Signed Patient: Elijah Wylie Jr MR#: [id number] : 1975 Acct:[id number] Age/Sex: 47 / M ADM Date: 01/24/23 Loc: Room: [address] [place] [address] Type: ADM INOo Attending Dr: Huy Dumont MD Ordering Provider: Shereen Iyer Jr, MD Date of Service: 01/24/2304/07/2230 ECG/ECG 12 lead ECG: Back Pain/Injury Copies to: Test Reason : Blood Pressure : 113/061 mmHG Vent. Rate : 047 BPM Atrial Rate : 047 BPM P-R Int : 154 ms QRS Dur : 108 ms QT Int : 484 ms P-R-T Axes : 019 037 048 degrees QTc Int : 428 ms Sinus bradycardia Otherwise normal ECG When compared with ECG of 24-DEC-2021 14:43, No significant change was found Although rate has decreased Confirmed by SHEREEN IYER MD ([id number]) on 01/25/2023 12:06:51 AM Referred By: Electronically Signed By:SHEREEN IYER MD Transcribed By: MUS Signed By Shereen Iyer Jr, MD 0006 Normal [facility] ECH echo transthoracicon ECH echo transthoracic [place] [id number] Echocardiogram Signed Patient: Elijah Wylie Jr MR#: [id number] : 1975 Acct:[id number] Age/Sex: 47 / M ADM Date: 01/24/23 Loc: 4N Room: 8M6490-9 Type: ADM IN Attending Dr: Nano Gates MD Ordering Provider: Phoenix Chavez MD Date of Service: 01/25/2305/07/815 ECH/ECH echo transthoracic: Cardiac clearance Copies to: MD Master Ch MD Height: 77 in Weight: 247 lb Performed By: BELA Figueroa BSA: 2.4 m2 BP: 107/65 mmHg HR: 57 Reason For Study: Cardiac clearance History: Cardiac Arrest - RCA dissectio, SC, stent, asthma, HLD, anoxic brain injury, smoker Interpretation Summary The left ventricular size, thickness and function are normal The left ventricular wall motion is normal. Ejection Fraction = 60-65%. Normal transthoracic echocardiogram. Compared to prior study, there is no significant change. Procedure/Quality: A two-dimensional transthoracic echocardiogram with color flow, Doppler and injection of contrast agent Definity was performed. A two- dimensional transthoracic echocardiogram with color flow and Doppler was performed. Left Ventricle: The left ventricular size, thickness and function are normal. Ejection Fraction = 60-65%. The left ventricular wall motion is normal. Left Atrium: The left atrium appears normal in size. Right Atrium: The right atrium appears normal in size. Right Ventricle: The right ventricular size, thickness and function are normal. Aortic Valve: The aortic valve is normal in structure and function. No aortic regurgitation is present. Mitral Valve: The mitral valve is normal in structure and function. There is no mitral regurgitation noted. Tricuspid Valve: The tricuspid valve is normal in structure and function. No tricuspid regurgitation. Pulmonic Valve: The pulmonic valve is normal in structure and function. Arteries: The aortic root is normal size. Pericardium/Pleura: No pericardial effusion seen. There is no pleural effusion. IVC/Hepatic Viens: The inferior vena cava is normal in size, with a normal collapsibility index. Measurements with Normals IVSd: 1.1 cm (0.7-1.1 cm)LVIDd: 5.7 cm (3.7-5.4 cm) LVPWd: 1.00 cm (0.7-1.1 cm)LVIDs: 4.4 cm (2.3-3.6 cm) LA dimension: 3.9 cm(2.3-4.0 cm)Ao root diam: 2.7 cm(2.0-3.6 cm) Doppler with Normals MV E max dinh: 58.7 cm/sec(0.8-1.3m/s) MV A max dinh: 59.1 cm/sec(0.0-0.0m/s) MV E/A: 0.99 (<1.5) MMode/2D Measurements Calculations TAPSE: 4.0 cm FS: 22.1 % Ao root area: 5.8 [id number] ap4: 9.3 cm RV S Dinh: EDV(Teich): EDV(MOD-sp4): 16.1 cm/sec 161.0 ml 177.0 ml ESV(Teich): LVLs ap4: 6.5 cm 90.0 ml ESV(MOD-sp4): EF(Teich): 44.1 % 52.2 ml EF(MOD-sp4): 70.5 % __ SV(MOD-sp4): LAV(MOD-sp4): LA A2 area: 11.3 cm2 124.8 ml 46.2 ml LAV(MOD-sp2): LA A4 area: 17.5 cm2 26.2 ml LA length (vol): 5.2 cm LA vol: 32.6 ml LA vol index: 13.3 ml/m2 Doppler Measurements Calculations MV dec time: 0.32 sec E/E' lat: 4.2 E/E' med: 5.3 MV dec slope: 183.7 cm/sec2 Transcribed By: SCV Performed At: 01/25/23 0934 Signed By: Master Siegel MD 01/25/23 1149 Normal [facility] Redraw Potassiumon 3 Potassium [Moles/Vol] 3.8 mmol/L Normal 3.5-5.1 [facility] Comment on above: Result Comment: PERF ORMED BY: [place] [address] PATHOLOGIST MOLD FILLER JASPER MELCHOR M.D. Performed By: #### R LIAT Bautista #### [place] [address] [place] Urinalysison 01-25-2023 Appearance (U) Clear Normal Clear [facility] Comment on above: Order Comment: Name Collection Type:: Clean-Voided Midstream Performed By: #### U A #### [address] Bilirubin,Urine Negative Normal Negative [facility] Comment on above: Order Comment: Name Collection Type:: Clean-Voided Midstream Performed By: #### U A #### [address] Color (U) Yellow Normal Yellow [facility] Comment on above: Order Comment: Name Collection Type:: Clean-Voided Midstream Performed By: #### U A #### [address] Glucose Ql (U) Normal Normal Normal [facility] Comment on above: Order Comment: Name Collection Type:: Clean-Voided Midstream Performed By: #### U A #### [address] Ketones Ql (U) Negative Normal Negative [facility] Comment on above: Order Comment: Name Collection Type:: Clean-Voided Midstream Performed By: #### U A #### [place] [address] [place] Leukocyte esterase Test strip Ql (U) Negative Normal Negative [facility] Comment on above: Order Comment: Name Collection Type:: Clean-Voided Midstream Performed By: #### U A #### [place] [address] [place] Nitrite,Urine Negative Normal Negative [facility] Comment on above: Order Comment: Name Collection Type:: Clean-Voided Midstream Performed By: #### U A #### [place] [address] [place] Occult Blood,Urine Negative Normal Negative [facility] Comment on above: Order Comment: Name Collection Type:: Clean-Voided Midstream Result Comment: PERF ORMED BY: [place] [address] PATHOLOGIST MOLD FILLER JASPER MELCHOR M.D. Performed By: #### U A #### [place] [address] [place] pH (U) 6.0 [pH] Normal 5.0-9.0 [facility] Comment on above: Order Comment: Name Collection Type:: Clean-Voided Midstream Performed By: #### U A #### [place] [address] [place] Protein,Urine Negative Normal Negative [facility] Comment on above: Order Comment: Name Collection Type:: Clean-Voided Midstream Performed By: #### U A #### [place] [address] [place] Specificy [place],Urine 1.006 Normal 1.001-1.03 0 [facility] Comment on above: Order Comment: Name Collection Type:: Clean-Voided Midstream Performed By: #### U A #### [place] [address] [place] Urobilinogen,Urine Normal Normal Normal [facility] Comment on above: Order Comment: Name Collection Type:: Clean-Voided Midstream Performed By: #### U A #### [place] [address] [place] XR chest 1V portableon 01-25 XR chest 1V portable [facility] [place] [address] XRay Report Signed Patient: Elijah Wylie Jr MR#: [id number] : 1975 Acct:[id number] Age/Sex: 47 / M ADM Date: 01/24/23 Loc: 4N Room: [id number] Type: ADM IN Attending Dr: Nano Gates MD Copies to: MD Shereen Pérez Jr, MD Ordering Provider: Shereen Iyer Jr, MD Date of Service: 01/24/23 XR/XR chest 1V portable: Back Pain/Injury PORTABLE AP ERECT CHEST 2250 hours CLINICAL HISTORY: Low back pain and right leg numbness COMPARISON: 12/24/2021 The heart is within normal limits. There is no vascular congestion. The lungs, as visualized, are clear. There is no effusion or pneumothorax. The osseous structures are intact. There are tiny endplate spurs. XR/XR chest 1V portable IMPRESSION: NO ACUTE FINDINGS Impression dictated by: Shasha Hyatt M.D.01/25/2023 7:51 AM Dictation Location: [place] [address] Transcribed By: VEENA 01/25/23 075 Dictated By: Shasha Hyatt MD 01/25/23750 Signed By: 01/25/23750 Normal [facility] Activated partial thrombopla stin time (aPTT) in platelet poor plasma by coagulation aOrdered By: Shereen Iyer on 01-24-2023 aPTT Coag (PPP) [Time] 31.6 s 25.1-36.5 [facility] Comment on above: A hematocrit value g reater than 55% may lead to inaccurate results in coagulation testing. Patients having hematocrit values >55% require a special collection tube for coagulation studies. Please contact the laboratory at [phone] for redraw instructions. Alanine aminotransferase [En zymatic activity/volume] in Serum or PlasmaOrdered By: Shereen Iyer on 01-24-2023 ALT [Catalytic activity/Vol] 12 U/L 7-52 [facility] Albumin [Mass/volume] in Ser um or Plasma by Bromocresol green (BCG) dye binding methoOrdered By: Shereen Iyer on 01-24-2023 Albumin BCG dye [Mass/Vol] 3.7 g/dL 3.5-5.7 [facility] Alkaline phosphatase [Enzyma tic activity/volume] in Serum or PlasmaOrdered By: Shereen Iyer on 01-24-2023 ALP [Catalytic activity/Vol] 78 U/L 34-104 [facility] Aspartate aminotransferase [ Enzymatic activity/volume] in Serum or PlasmaOrdered By: Shereen Iyer on 01-24-2023 AST [Catalytic activity/Vol] 24 U/L 13-39 [facility] Basophils Auto (Bld) [#/Vol] Ordered By: Shereen Iyer on 01-24-2023 Basophils (Bld) [#/Vol] 0.1 10*3/uL 0.0-0.2 [facility] Basophils/100 WBC Auto (Bld) Ordered By: Shereen Iyer on 01-24-2023 Basophils/100 WBC (Bld) 1.2 % . [facility] Bilirubin Test strip Ql (U)O rdered By: Shereen Iyer on 01-24-2023 Bilirubin Ql (U) Negative Negative [facility] Bilirubin.total [Mass/volume ] in Serum or PlasmaOrdered By: Shereen Iyer on 01-24-2023 Bilirubin [Mass/Vol] 0.8 mg/dL 0.3-1.0 [facility] Coagulation Profileon 2022 aPTT Coag (Bld) [Time] 31.6 s Normal 25.1-36.5 [facility] Comment on above: Result Comment: A he matocrit value greater than 55% may lead to inaccurate results in coagulation testing. Patients having hematocrit values >55% require a special collection tube for coagulation studies. Please contact the laboratory at [phone] for redraw instructions. PERFORMED BY: [place] [id number] PATHOLOGIST MOLD FILLER JASPER MELCHOR M.D. Performed By: #### P P #### [address] INR Coag (PPP) [Relative time] 1.0 {INR} Normal [facility] Comment on above: Result Comment: INR Therapeutic Range A) Pre- and Peroperative OAT started two weeks before surgery. NOT HIP SURGERY: 1.5 - 2.5 HIP SURGERY: 2 - 3 B) Primary and secondary prevention of venous THROMBOSIS: 2 - 3 C) Active venous thrombosis, pulmonary embolism and prevention of recurrent venous thrombosis: 2 - 3 D) Prevention of arterial thromboembolism including patients with mechanical heart valves: 3 - 4.5 Performed By: #### P P #### [address] PT Coag (PPP) [Time] 11.9 s Normal 9.0-12.9 [facility] Comment on above: Result Comment: A he matocrit value greater than 55% may lead to inaccurate results in coagulation testing. Patients having hematocrit values >55% require a special collection tube for coagulation studies. Please contact the laboratory at [phone] for redraw instructions. Performed By: #### P P #### [address] Color Auto (U)Ordered By: Jennyfer Iyer on 01-24-2023 Color (U) Yellow Yellow [facility] Complete Blood Count Auto Di ffon 01-24-2023 Basophils (Bld) [#/Vol] 0.1 10*3/uL Normal 0.0-0.2 [facility] Comment on above: Result Comment: PERF ORMED BY: [place] [address] PATHOLOGIST MOLD FILLER JASPER MELCHOR M.D. Performed By: #### C MP, CBC #### [address] Basophils/100 WBC (Bld) 1.2 % Normal . [facility] Comment on above: Performed By: #### C MP, CBC #### [place] [address] [place] Eosinophils (Bld) [#/Vol] 0.5 10*3/uL High 0.0-0.45 [facility] Comment on above: Performed By: #### C MP, CBC #### [place] [address] [place] Eosinophils/100 WBC (Bld) 4.9 % Normal . [facility] Comment on above: Performed By: #### C MP, CBC #### [address] Erythrocyte distribution width (RBC) [Ratio] 16.6 % High 12.0-14.8 [facility] Comment on above: Performed By: #### C MP, CBC #### [address] Hematocrit (Bld) [Volume fraction] 38.2 % Low 38.8-50.0 [facility] Comment on above: Performed By: #### C MP, CBC #### [address] Hemoglobin (Bld) [Mass/Vol] 12.6 g/dL Low 13.0-17.0 [facility] Comment on above: Performed By: #### C MP, CBC #### [address] Lymphocytes (Bld) [#/Vol] 2.9 10*3/uL Normal 1.00-4.8 [facility] Comment on above: Performed By: #### C MP, CBC #### [address] Lymphocytes/100 WBC (Bld) 30.9 % Normal . [facility] Comment on above: Performed By: #### C MP, CBC #### [address] MCH (RBC) [Entitic mass] 28.6 pg Normal 27.5-35.2 [facility] Comment on above: Performed By: #### C MP, CBC #### [address] MCV (RBC) [Entitic vol] 86.6 fL Normal 83.5-101 [facility] Comment on above: Performed By: #### C MP, CBC #### [address] Mean Corpuscular HGB Conc 33.1 g/dL Normal 32.5-35.6 [facility] Comment on above: Performed By: #### C MP, CBC #### [address] Monocytes (Bld) [#/Vol] 0.5 10*3/uL Normal 0.0-0.8 [facility] Comment on above: Performed By: #### C MP, CBC #### [address] Monocytes/100 WBC (Bld) 21.74 % High 0.00-20.00 [facility] Comment on above: Result Comment: For adults in ED, MDW > 20.0 may be associated with a higher risk of sepsis during the first 12 hrs of hospital admission Performed By: #### C MP, CBC #### [address] Monocytes/100 WBC (Bld) 5.3 % Normal . [facility] Comment on above: Performed By: #### C MP, CBC #### [address] Neutrophils (Bld) [#/Vol] 5.3 10*3/uL Normal 1.8-7.7 [facility] Comment on above: Performed By: #### C MP, CBC #### [address] Neutrophils/100 WBC (Bld) 57.7 % Normal . [facility] Comment on above: Performed By: #### C MP, CBC #### [address] NRBC% 0.2 /100{WBC} Normal 0-0.5 [facility] Comment on above: Performed By: #### C MP, CBC #### [address] Platelet mean volume (Bld) [Entitic vol] 11.9 fL High 6.6-10.1 [facility] Comment on above: Performed By: #### C MP, CBC #### [place] [address] [place] Platelets (Bld) [#/Vol] 133 10*3/uL Low 150-450 [facility] Comment on above: Performed By: #### C MP, CBC #### [place] [address] [place] RBC (Bld) [#/Vol] 4.41 10*6/uL Normal 3.90-5.60 [facility] Comment on above: Performed By: #### C MP, CBC #### [address] WBC (Bld) [#/Vol] 9.2 10*3/uL Normal 4.1-10.5 [facility] Comment on above: Performed By: #### C MP, CBC #### [address] Comprehensive Metabolic Pane valentino 01-24-2023 Albumin [Mass/Vol] 3.7 g/dL Normal 3.5-5.7 [facility] Comment on above: Performed By: #### C MP, CBC #### [address] Albumin/Globulin [Mass ratio] 1.5 {ratio} Normal [facility] Comment on above: Performed By: #### C MP, CBC #### [address] ALP [Catalytic activity/Vol] 78 U/L Normal 34-104 [facility] Comment on above: Performed By: #### C MP, CBC #### [address] ALT [Catalytic activity/Vol] 12 U/L Normal 7-52 [facility] Comment on above: Performed By: #### C MP, CBC #### [address] Anion gap [Moles/Vol] 11.7 mmol/L Normal 6.0-15.0 [facility] Comment on above: Performed By: #### C MP, CBC #### [address] AST [Catalytic activity/Vol] 24 U/L Normal 13-39 [facility] Comment on above: Performed By: #### C MP, CBC #### [address] Bilirubin [Mass/Vol] 0.8 mg/dL Normal 0.3-1.0 [facility] Comment on above: Performed By: #### C MP, CBC #### [address] Calcium [Mass/Vol] 8.6 mg/dL Normal 8.6-10.3 [facility] Comment on above: Performed By: #### C MP, CBC #### [address] Chloride [Moles/Vol] 104 mmol/L Normal 98-107 [facility] Comment on above: Performed By: #### C MP, CBC #### [address] CO2 [Moles/Vol] 25.0 mmol/L Normal 21.0-31.0 [facility] Comment on above: Performed By: #### C MP, CBC #### [address] Creatinine [Mass/Vol] 0.90 mg/dL Normal 0.70-1.30 [facility] Comment on above: Performed By: #### C MP, CBC #### [place] [address] [place] Creatinine Clr Calc Pharm[facility] 142.54 Normal [facility] Comment on above: Result Comment: PERF ORMED BY: [place] [address] PATHOLOGIST MOLD FILLER JASPER MELCHOR M.D. Performed By: #### C MP, CBC #### [place] [address] [place] GFR/1.73 sq M.predicted MDRD (S/P/Bld) [Vol rate/Area] mL/min/{1.73_m2} Normal [facility] Comment on above: Performed By: #### C MP, CBC #### [place] [address] [place] Globulin (S) [Mass/Vol] 2.4 g/dL Normal [facility] Comment on above: Performed By: #### C MP, CBC #### [address] Glucose [Mass/Vol] 118 mg/dL High 70-100 [facility] Comment on above: Result Comment: [facility] Glucose Reference Range is dependent on time and content of last meal. Glucose of more than 200 mg/dL in a nonstressed, ambulatory subject supports the diagnosis of Diabetes Mellitus. ADA recommended reference range Performed By: #### C MP, CBC #### [address] Potassium [Moles/Vol] 3.7 mmol/L Normal 3.5-5.1 [facility] Comment on above: Result Comment: Hemo lysis is present at a level that could interfere with the result. Performed By: #### C MP, CBC #### [address] Protein [Mass/Vol] 6.1 g/dL Low 6.4-8.9 [facility] Comment on above: Performed By: #### C MP, CBC #### [address] Sodium [Moles/Vol] 137 mmol/L Normal 136-145 [facility] Comment on above: Performed By: #### C MP, CBC #### [address] Urea nitrogen [Mass/Vol] 6 mg/dL Low 7-25 [facility] Comment on above: Performed By: #### C MP, CBC #### [place] [address] [place] Eosinophils Auto (Bld) [#/Vo l]Ordered By: Shereen Iyer on 01-24-2023 Eosinophils (Bld) [#/Vol] 0.5 10*3/uL 0.0-0.45 [facility] Eosinophils/100 WBC Auto (Bl d)Ordered By: Shereen Iyer on 01-24-2023 Eosinophils/100 WBC (Bld) 4.9 % . [facility] Erythrocyte distribution wid th Auto (RBC) [Ratio]Ordered By: Shereen Iyer on 01-24-2023 Erythrocyte distribution width (RBC) [Ratio] 16.6 % 12.0-14.8 [facility] Globulin Calc (S) [Mass/Vol] Ordered By: Shereen Iyer on 01-24-2023 Globulin (S) [Mass/Vol] 2.4 g/dL [facility] Hematocrit Auto (Bld) [Volum e fraction]Ordered By: Shereen Iyer on 01-24-2023 Hematocrit (Bld) [Volume fraction] 38.2 % 38.8-50.0 [facility] Hemoglobin [Mass/volume] in BloodOrdered By: Shereen Iyer on 01-24-2023 Hemoglobin (Bld) [Mass/Vol] 12.6 g/dL 13.0-17.0 [facility] INR in Platelet poor plasma by Coagulation assayOrdered By: Shereen Iyer on 01-24-2023 INR Coag (PPP) [Relative time] 1.0 {INR} [facility] Comment on above: INR Therapeutic Rang e A) Pre- and Peroperative OAT started two weeks before surgery. NOT HIP SURGERY: 1.5 - 2.5 HIP SURGERY: 2 - 3B) Primary and secondary prevention of venous THROMBOSIS: 2 - 3C) Active venous thrombosis, pulmonary embolismand prevention of recurrent venous thrombosis: 2 - 3D) Prevention of arterial thromboembolismincluding patients with mechanical heart valves: 3 - 4.5 Ketones Auto test strip (U) [Mass/Vol]Ordered By: Shereen Iyer on 01-24-2023 Ketones (U) [Mass/Vol] Negative Negative [facility] Leukocytes [#/volume] correc max for nucleated erythrocytes in Blood by Automated counOrdered By: Shereen Iyer on 01-24-2023 WBC corrected for nucl RBC Auto (Bld) [#/Vol] 9.2 10*3/uL 4.1-10.5 [facility] Lymphocytes Auto (Bld) [#/Vo l]Ordered By: Shereen Iyer on 01-24-2023 Lymphocytes (Bld) [#/Vol] 2.9 10*3/uL 1.00-4.8 [facility] Lymphocytes/100 WBC Auto (Bl d)Ordered By: Shereen Iyer on 01-24-2023 Lymphocytes/100 WBC (Bld) 30.9 % . [facility] MCH Auto (RBC) [Entitic mass ]Ordered By: Shereen Iyer on 01-24-2023 MCH (RBC) [Entitic mass] 28.6 pg 27.5-35.2 [facility] MCHC Auto (RBC) [Mass/Vol]Or dered By: Shereen Iyer on 01-24-2023 MCHC (RBC) [Mass/Vol] 33.1 g/dL 32.5-35.6 [facility] MCV Auto (RBC) [Entitic vol] Ordered By: Shereen Iyer on 01-24-2023 MCV (RBC) [Entitic vol] 86.6 fL 83.5-101 [facility] MR lumbar spine wo/w conon 0 01-24-2023 MR lumbar spine wo/w con [facility] [place] [address] [place] [address] MRI Report Signed Patient: Elijah Wylie Jr MR#: [id number] : 1975 Acct:[id number] Age/Sex: 47 / M ADM Date: 01/24/23 Loc: MR Room: Type: [facility] Attending Dr: Theresa Moon DO Copies to: Theresa Moon DO Ordering Provider: Theresa Moon DO Date of Service: 01/24/23 MR/MR lumbar spine wo/w con: RADICULAPATHY MR lumbar spine wo/w con 01/24/2023 8:08 PM SIGNS AND SYMPTOMS: Chronic back pain, pain in right leg with numbness PROTOCOL: Multiplanar multisequence MR images of the lumbar spine were obtained with and without IV contrast CONTRAST: 20 mL of intravenous ProHance COMPARISON: None. FINDINGS: The bones of the lumbar spine are in anatomic alignment. There is preservation of vertebral body heights. There is disc desiccation and mild disc height loss at L4-L5 and L5-S1. There is minimal disc height loss at L1-L2. The marrow signal is within normal limits. The conus terminates at the inferior endplate of the L1 vertebral body level. No epidural or paraspinous fluid collection is appreciated. There is no abnormal postcontrast enhancement. At T12-L1: There is a normal disc, central canal, and neural foramen. At L1-L2: There is a normal disc, central canal, and neural foramen. Facet degenerative changes are present with small bilateral facet effusions. At L2-L3: There is a normal disc, central canal, and neural foramen. At L3-L4: There is a normal disc, central canal, and neural foramen. At L4-L5: There is a circumferential disc bulge with a right subarticular and foraminal disc extrusion. There is caudal migration measuring 2.2 cm reaching the level of the right L5-S1 neural foramen. There is severe spinal canal stenosis with mass effect on the traversing right L5 nerve roots. There is moderate bilateral neural foraminal narrowing. At L5-S1: There is a broad-based disc bulge with facet hypertrophy. There is mild spinal canal stenosis. The extruded disc material reaches the roof of the right L5-S1 transverse foramen contributing to mass effect on the exiting right L5 nerve roots. There is endplate osteophyte formation contributing to moderate bilateral neural foraminal narrowing. No significant spinal canal narrowing. MR/MR lumbar spine wo/w con IMPRESSION: At L4-L5: There is a circumferential disc bulge with a right subarticular and foraminal disc extrusion. There is caudal migration measuring 2.2 cm reaching the level of the right L5-S1 neural foramen. There is severe spinal canal stenosis with mass effect on the traversing right L5 nerve roots. There is moderate bilateral neural foraminal narrowing. At L5-S1: There is a broad-based disc bulge with facet hypertrophy. There is mild spinal canal stenosis. The extruded disc material reaches the roof of the right L5-S1 transverse foramen contributing to mass effect on the exiting right L5 nerve roots. There is endplate osteophyte formation contributing to moderate bilateral neural foraminal narrowing. No significant spinal canal narrowing. No abnormal postcontrast enhancement. Findings were discussed with Dr. Moon at 9:05 PM on 01/24/2023. Impression dictated by: Mikie Hernandez M.D.01/24/2023 9:12 PM Dictation Location: [place] [address] Transcribed By: [facility] 01/24/232111 Dictated By: Mikie Hernandez II, MD 01/24/232105 Signed By: 01/24/232111 Normal [facility] Monocyte distribution width [Entitic volume] in Blood by AutomatedOrdered By: Shereen Iyer on 01-24-2023 Monocyte distribution width Auto (Bld) [Entitic vol] 21.74 % 0.00-20.00 [facility] Comment on above: For adults in ED, MD W > 20.0 may be associated with a higher risk of sepsis during the first 12 hrs of hospital admission Monocytes Auto (Bld) [#/Vol] Ordered By: Shereen Iyer on 01-24-2023 Monocytes (Bld) [#/Vol] 0.5 10*3/uL 0.0-0.8 [facility] Monocytes/100 WBC Auto (Bld) Ordered By: Shereen Iyer on 01-24-2023 Monocytes/100 WBC (Bld) 5.3 % . [facility] Neutrophils Auto (Bld) [#/Vo l]Ordered By: Shereen Iyer on 01-24-2023 Neutrophils (Bld) [#/Vol] 5.3 10*3/uL 1.8-7.7 [facility] Neutrophils/100 WBC Auto (Bl d)Ordered By: Shereen Iyer on 01-24-2023 Neutrophils/100 WBC (Bld) 57.7 % . [facility] Nitrite Test strip Ql (U)Ord ered By: Shereen Iyer on 01-24-2023 Nitrite Ql (U) Negative Negative [facility] Nucleated erythrocytes [Pres ence] in Blood by Automated countOrdered By: Shereen Iyer on 01-24-2023 Nucleated RBC Auto Ql (Bld) 0.2 /100{WBC} 0-0.5 [facility] Platelet mean volume Auto (B ld) [Entitic vol]Ordered By: Shereen Iyer on 01-24-2023 Platelet mean volume (Bld) [Entitic vol] 11.9 fL 6.6-10.1 [facility] Platelets Auto (Bld) [#/Vol] Ordered By: Shereen Iyer on 01-24-2023 Platelets (Bld) [#/Vol] 133 10*3/uL 150-450 [facility] Protein Auto test strip (U) [Mass/Vol]Ordered By: Shereen Iyer on 01-24-2023 Protein (U) [Mass/Vol] Negative Negative [facility] Protein [Mass/volume] in Ser um or PlasmaOrdered By: Shereen Iyer on 01-24-2023 Protein [Mass/Vol] 6.1 g/dL 6.4-8.[address] [facility] Prothrombin time (PT)Ordered By: Shereen Iyer on 01-24-2023 PT Coag (PPP) [Time] 11.9 s 9.0-12.9 [facility] Comment on above: A hematocrit value g reater than 55% may lead to inaccurate results in coagulation testing. Patients having hematocrit values >55% require a special collection tube for coagulation studies. Please contact the laboratory at [phone] for redraw instructions. RBC Auto (Bld) [#/Vol]Ordere d By: Shereen Iyer on 01-24-2023 RBC (Bld) [#/Vol] 4.41 10*6/uL 3.90-5.60 [facility] Serum or plasma albumin/glob ulin mass ratioOrdered By: Shereen Iyer on 01-24-2023 Albumin/Globulin [Mass ratio] 1.5 {ratio} [facility] Specific gravity Auto test s trip (U) [Rel density]Ordered By: Shereen Iyer on 01-24-2023 Specific gravity (U) [Rel density] 1.006 1.001-1.03 0 [facility] Urine clarity by refractomet ry automatedOrdered By: Shereen Iyer on 01-24-2023 Clarity Refractometry automated (U) Clear Clear [facility] Urine glucose measurement by automated test strip (mass/volume)Ordered By: Shereen Iyer on 01-24-2023 Glucose Auto test strip (U) [Mass/Vol] Normal mg/dL Normal [facility] Urine hemoglobin detection b y automated test stripOrdered By: Shereen Iyer on 01-24-2023 Hemoglobin Auto test strip Ql (U) Negative Negative [facility] Urine leukocyte esterase det ection by automated test stripOrdered By: Shereen Iyer on 01-24-2023 Leukocyte esterase Auto test strip Ql (U) Negative Negative [facility] Urobilinogen Auto test strip (U) [Mass/Vol]Ordered By: Shereen Iyer on 01-24-2023 Urobilinogen (U) [Mass/Vol] Normal mg/dL Normal [facility] WBC Auto (Bld) [#/Vol]Ordere d By: Shereen Iyer on 01-24-2023 WBC (Bld) [#/Vol] 9.2 10*3/uL 4.1-10.[address] [facility] pH Auto test strip (U)Ordere d By: Shereen Iyer on 01-24-2023 pH (U) 6.0 [pH] 5.0-9.0 [facility] XR ANKLE RT MIN 3 VIEWSon XR ANKLE RT MIN 3 VIEWS PLAIN FILM OF ANKLE RIGHT HISTORY: Pain TECHNIQUE: 3views of the ankle. COMPARISON: None. FINDINGS: There is no evidence for acute fracture. Bone mineralization is decreased. Joint spaces are maintained. Soft tissues are edematous. There is no radiopaque foreign body. IMPRESSION: Soft tissue swelling. Please correlate for ankle sprain. Electronically authenticated by: ODETTE LOUIS Date: 2022-10-12 20:01 Normal [facility] XR LSPINE 2_3 VIEWSon 2022 XR LSPINE 2_3 VIEWS EXAM: XR LSPINE 2_3 VIEWS HISTORY: Fall down 3 steps COMPARISON: None. TECHNIQUE: 2 views FINDINGS: Maintenance of the normal lumbar lordosis.. Vertebral body heights and alignments exhibit no fracture or listhesis. Age-related intervertebral disc space narrowing, endplate and facet arthrosis. Sacroiliac joints are normal. IMPRESSION: Normal age-related lumbar spine x-rays Electronically authenticated by: TARIQ BRICE Date: 2022-10-12 20:16 Normal [facility] CNPNon 08-17-2022 CNPN Telephone (PAINLN) ELIJAH WYLIE JR. ([id number]) 1975 M Date Time Provider Department 08/17/22 GENA CHEUNG During your visit today, we recorded the following information about you: Laurie León MA 08/27/2022 1:17 PM Addendum Patient was advised of the following: This is a follow up phone call regarding your appointment with Dr Cheung, which you are scheduled to see at [facility] on 08/18/2022. 1) Have you been evaluated and treated by a Pain Management physician currently or in the past? If so, we will need a release of care from your previous physician. 2) Have you had any outside x-rays or MRI's related to the pain you are being seen for? If so, please bring copies to your appointment with you. Also please recall that our physicians will not take over medications. You will need to make sure you have enough pain medications to last until your follow up appointment with your current prescribing physician. Dr. Cheung is primarily an interventional pain management provider, which means, they treat with physical therapy, injections and non-narcotic medications. Any questions or you need to reschedule please call us at [phone]. Attempted to contact patient VM box not set up called 's phone it has been D/C Laurie León MA Allergies As of Date: 08/17/2022 Noted Allergy Reaction CECLOR (CEFACLOR) 04/13/2011 4 - Hives 9 - Itching 10 - Anaphylaxis Comments: Early 20s Patient tolerated piperacillin 07/2017 SULFA (SULFONAMIDE ANTIBIOTICS) 01/27/2013 2 - Rash BACTRIM (SULFAMETHOXAZOLE-TRIMETH*01/2018 14 - Other: See Comments Comments: Skin sloughing NSAIDS (NON-STEROIDAL ANTI-INFLAM*01/23/2014 14 - Other: See Comments Comments: Due to hx of gastric bipass Date Reviewed: 05/13/2022 Reviewed by: Jazmine Estrella DO - Fully Assessed Reason for Visit: Appointment [[id number]] Cmt: Pain management Prescriptions as of 08/27/2022 - pantoprazole DR (PROTONIX) 40 mg tablet Take 40 mg by mouth once daily. - sertraline (ZOLOFT) 100 mg tablet Take 100 mg by mouth once daily. - nitroglycerin sublingual (NITROQUICK) 0.4 mg SL tablet Dissolve 0.4 mg under the tongue every 5 minutes as needed for chest pain. - aspirin, enteric coated (ASPIRIN, ENTERIC COATED) 81 mg EC tablet Take 81 mg by mouth once daily. - atorvastatin (LIPITOR) 80 mg tablet Take 80 mg by mouth once daily. - sucralfate (CARAFATE) 1 gram tablet Take 1 g by mouth four times daily. - dilTIAZem CR (TIAZAC, TAZTIA XT) 120 mg 24 hr capsule Take 120 mg by mouth once daily. - pregabalin (LYRICA) 50 mg capsule Take 50 mg by mouth three times daily. - ergocalciferol, vitamin D2, (VITAMIN D2 ORAL) Take by mouth. - propranolol ER (INDERAL LA) 120 mg 24 hr capsule Take 120 mg by mouth once daily. - baclofen (LIORESAL) 5 mg tablet Take by mouth. - predniSONE (DELTASONE) 20 mg tablet Take 1 tablet by mouth twice daily. - guaiFENesin-dextromethorphan (ROBITUSSIN DM) 100-10 mg/5 mL syrup Take 5 mL by mouth three times daily as needed. - pantoprazole DR (PROTONIX) 40 mg tablet Take 1 tablet by mouth twice daily. - scopolamine (TRANSDERM-SCOP) 1 mg over 3 days Apply 1 Patch as directed every 72 hours. - nicotine (NICODERM) 21 mg/24 hr Apply 1 Patch as directed once daily. - ALPRAZolam (XANAX) 1 mg tablet 0.5 mg at bedtime as needed. - traZODone (DESYREL) 50 mg tablet Take 50 mg by mouth daily at bedtime. - cyclobenzaprine (FLEXERIL) 10 mg tablet Take 1 tablet by mouth every 8 hours as needed for Muscle Spasm. - diazepam (VALIUM) 5 mg tablet Take 1 tablet by mouth every 8 hours as needed (muscle spasms). - CALCIUM CITRATE, BULK, MISC - MULTIVIT ANDMINERALS/FERROUS FUM (MULTI VITAMIN ORAL) Take by mouth. - Ascorbic Acid 1,000 mg tablet Take 1,000 mg by mouth once daily. Facility-Administered Medications as of 08/27/2022 - sodium chloride 0.9 % (flush) 10 mL (BD POSIFLUSH) Problem List As Of Date 08/17/2022 Noted Resolved HTN (hypertension) [I10] 04/07/2011 Obesity, morbid [E66.01] 04/07/2011 05/25/2012 Hyperlipidemia [E78.5] 04/07/2011 Other and unspecified postsurgical nonabsorptio*05/25/2012 Dietary surveillance and counseling [Z71.3] 05/25/2012 Overweight [E66.3] 05/25/2012 Displacement of lumbar intervertebral disc with*01/23/2014 Peptic ulcer [K27.9] 08/05/2017 Perforated duodenal bulb ulcer (HCC) [K26.5] 08/05/2017 UGI bleed [K92.2] 08/23/2017 Epigastric abdominal pain [R10.13] 02/07/2018 Abdominal pain [R10.9] 07/19/2018 Coronary artery disease involving chinik keenan*05/13/2022 ST elevation myocardial infarction involving ri*05/13/2022 S/P right coronary artery (RCA) stent placement*05/13/2022 Encounter Status:Closed by LAURIE LEÓN on 08/27/22 Normal [facility] CNOVon 07-21-2022 CNOV Office Visit (JONATHAN ) ELIJAH WYLIE JR. 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 Referring Provider: JAZMINE ESTRELLA [[id number]] Allergies As of Date: 07/21/2022 Noted Allergy Reaction CECLOR (CEFACLOR) 04/13/2011 4 - Hives 9 - Itching 10 - Anaphylaxis Comments: Early 20s Patient tolerated piperacillin 07/2017 SULFA (SULFONAMIDE ANTIBIOTICS) 01/27/2013 2 - Rash BACTRIM (SULFAMETHOXAZOLE-TRIMETH*01/2018 14 - Other: See Comments Comments: Skin sloughing NSAIDS (NON-STEROIDAL ANTI-INFLAM*01/23/2014 14 - Other: See Comments Comments: Due to hx of gastric bipass Date Reviewed: 05/13/2022 Reviewed by: Jazmine Estrella DO - Fully Assessed Visit Diagnoses:Primary hypertension [I10] Mixed hyperlipidemia [E78.2] Coronary artery disease involving chinik coronary artery of chinik heart without angina pectoris [I25.10] ST elevation myocardial infarction involving right coronary artery (HCC) [I21.11] S/P right coronary artery (RCA) stent placement [Z95.5] Comment:x3 Order(s):ECHO [450968] Order #: [id number]: 1 Prescriptions as of 07/21/2022 - pantoprazole DR (PROTONIX) 40 mg tablet Take 40 mg by mouth once daily. - sertraline (ZOLOFT) 100 mg tablet Take 100 mg by mouth once daily. - nitroglycerin sublingual (NITROQUICK) 0.4 mg SL tablet Dissolve 0.4 mg under the tongue every 5 minutes as needed for chest pain. - aspirin, enteric coated (ASPIRIN, ENTERIC COATED) 81 mg EC tablet Take 81 mg by mouth once daily. - atorvastatin (LIPITOR) 80 mg tablet Take 80 mg by mouth once daily. - sucralfate (CARAFATE) 1 gram tablet Take 1 g by mouth four times daily. - dilTIAZem CR (TIAZAC, TAZTIA XT) 120 mg 24 hr capsule Take 120 mg by mouth once daily. - pregabalin (LYRICA) 50 mg capsule Take 50 mg by mouth three times daily. - ergocalciferol, vitamin D2, (VITAMIN D2 ORAL) Take by mouth. - propranolol ER (INDERAL LA) 120 mg 24 hr capsule Take 120 mg by mouth once daily. - baclofen (LIORESAL) 5 mg tablet Take by mouth. - predniSONE (DELTASONE) 20 mg tablet Take 1 tablet by mouth twice daily. - guaiFENesin-dextromethorphan (ROBITUSSIN DM) 100-10 mg/5 mL syrup Take 5 mL by mouth three times daily as needed. - pantoprazole DR (PROTONIX) 40 mg tablet Take 1 tablet by mouth twice daily. - scopolamine (TRANSDERM-SCOP) 1 mg over 3 days Apply 1 Patch as directed every 72 hours. - nicotine (NICODERM) 21 mg/24 hr Apply 1 Patch as directed once daily. - ALPRAZolam (XANAX) 1 mg tablet 0.5 mg at bedtime as needed. - traZODone (DESYREL) 50 mg tablet Take 50 mg by mouth daily at bedtime. - cyclobenzaprine (FLEXERIL) 10 mg tablet Take 1 tablet by mouth every 8 hours as needed for Muscle Spasm. - diazepam (VALIUM) 5 mg tablet Take 1 tablet by mouth every 8 hours as needed (muscle spasms). - CALCIUM CITRATE, BULK, MISC - MULTIVIT ANDMINERALS/FERROUS FUM (MULTI VITAMIN ORAL) Take by mouth. - Ascorbic Acid 1,000 mg tablet Take 1,000 mg by mouth once daily. Facility-Administered Medications as of 07/21/2022 - sodium chloride 0.9 % (flush) 10 mL (BD POSIFLUSH) Problem List As Of Date 07/21/2022 Noted Resolved HTN (hypertension) [I10] 04/07/2011 Obesity, morbid [E66.01] 04/07/2011 05/25/2012 Hyperlipidemia [E78.5] 04/07/2011 Other and unspecified postsurgical nonabsorptio*05/25/2012 Dietary surveillance and counseling [Z71.3] 05/25/2012 Overweight [E66.3] 05/25/2012 Displacement of lumbar intervertebral disc with*01/23/2014 Peptic ulcer [K27.9] 08/05/2017 Perforated duodenal bulb ulcer (HCC) [K26.5] 08/05/2017 UGI bleed [K92.2] 08/23/2017 Epigastric abdominal pain [R10.13] 02/07/2018 Abdominal pain [R10.9] 07/19/2018 Coronary artery disease involving chinik keenan*05/13/2022 ST elevation myocardial infarction involving ri*05/13/2022 S/P right coronary artery (RCA) stent placement*05/13/2022 Visit Notes: >> Migdalia Mitchell RN Wed Jul 21, 2022 10:06 AM Status: Signed IV Access: IV IV Site: left Antecubital IV GAUGE 24 gauge IV Removal Date 07/21/2022 Time 10:00am Reactions: WNL Order reviewed by nurse:yes Medications: Definity - dosage 1.5cc diluted IVP Reaction: No LOT: [id number] EXP: 11/13/2022 [facility] #[id number] MFG: [employer] Encounter Status:Closed by MIGDALIA MITCHELL on 07/21/22 Normal [facility] ECHOon 07-21-2022 Echocardiography Echocardiography Rep ort: Transthoracic Echo [facility] Date of service: 07/21/2022 9:33:01 AM [facility] Ordering physician: JAZMINE ESTRELLA Indication: s/p PCI Technologist: Marcus Holden Interpreting physician: Jamie Hutchins MD PATIENT: Name: MR. ELIJAH WYLIE JR. : 1975 Age: 47 years Gender: M Previous cardiovascular interventions: PCI Primary rhythm: sinus. Height: 195.60 cm BSA: 2.49 m Weight: 113.85 kg BMI: 29.8 kg/m Heart rate 53 bpm Blood pressure 126/72 mmHg Technically difficult exam due to body habitus. Color Doppler was utilized to interrogate the cardiac valves assessed and spectral Doppler was utilized to determine the flow velocities and pressure gradients reported in this exam. MEASUREMENTS: Value Indexed Normal Max aortic dimension 3.5 cm Ao < 3.8 Left atrial volume 80 ml (4ch A-L) 32 ml/m Enrique <= 34 LV ID (diastole) 4.9 cm (2D) 1.95 cm/m LV ID (systole) 3.5 cm (2D) 1.41 cm/m IVS, leaflet tips 1.4 cm (2D) Posterior wall thickness 1.2 cm (2D) Left ventricular mass 240 g (2D) 96 g/m LV stroke volume 110 ml (2D biplane) LV end diastolic volume 186 ml (2D biplane) 74.6 ml/m 34<=EDVi<75 LV end systolic volume 76 ml (2D biplane) 30.6 ml/m Ejection Fraction 59 % (2D biplane) EF > 52 FINDINGS: LEFT VENTRICLE The left ventricle is normal in size. Left ventricular systolic function is normal. Normal left ventricular diastolic function. Mitral annular lateral E/e': 5.6. Mitral annular septal E/e': 7.1. Definity contrast used for endocardial border detection. Wall Motion: All scored segments are normal. RIGHT VENTRICLE The right ventricle is normal in size. Right ventricular systolic function is normal. RV systolic tissue Doppler velocity is 11.5 cm/s. Tricuspid annular displacement is 3.2 cm. Estimated right ventricular systolic pressure is not reported due to an insufficient tricuspid regurgitation signal. Estimated right atrial pressure is 8 mmHg based on IVC assessment. LEFT ATRIUM The left atrial cavity is normal in size. RIGHT ATRIUM The right atrial cavity is normal in size. Inferior Vena Cava: The inferior vena cava appears dilated measuring 2.4 cm. The vessel decreases greater than 50 percent with inspiration. MITRAL VALVE The mitral valve leaflets are structurally normal. There is trace mitral valve regurgitation. The pressure half time is 65 msec. The peak mitral E/A ratio is 1.26. The average mitral E/e' ratio is 6.3. The mitral flow deceleration time is 224 msec. TRICUSPID VALVE The tricuspid valve leaflets are structurally normal. There is trace tricuspid valve regurgitation. AORTIC VALVE The aortic valve cusps are structurally normal. There is no aortic valve regurgitation. Tricuspid aortic valve. The peak gradient is 5 mmHg (peak velocity = 111.0 cm/s). PULMONIC VALVE The pulmonic valve cusps are structurally normal. There is trace pulmonic valve regurgitation. The peak gradient is 4 mmHg. AORTA The visualized aorta is normal in size. Measurements - Mid ascending aorta 3.5 cm. PULMONARY ARTERIES The pulmonary arteries are normal. INTERATRIAL SEPTUM There is no evidence of intracardiac shunting as detected by Doppler. INTERVENTRICULAR SEPTUM There is normal motion of the interventricular septum. PERICARDIUM There is no pericardial effusion. There is an epicardial fat pad. CONCLUSIONS: - Technically difficult exam due to body habitus. - Exam indication: s/p PCI - The left ventricle is normal in size. Left ventricular systolic function is normal. EF = 59 5% (2D biplane) Definity contrast used for endocardial border detection. Normal left ventricular diastolic function. - The right ventricle is normal in size. Right ventricular systolic function is normal. - There are no significant valvular abnormalities. - The patient has not had a prior CC echocardiographic exam for comparison. * * * Final * * * [facility] Image : [id number] oDynamicsSISUID Normal [facility] ECG COMPLETEon 05-14-2022 Atrial Rate 53 BPM [facility] Calculated P Stewardson 3 degrees [facility] Calculated R [facility] 28 degrees [facility] Calculated T Stewardson [address] [facility] P-R Interval 180 ms [facility] QRS Duration 94 ms [facility] QT Interval 456 ms [facility] QTC Calculation (Bazett) 427 ms [facility] Ventricular Rate 53 BPM [facility] CNOVon 05-13-2022 CNOV Office Visit (CARDMM ) ELIJAH WYLIE JR. ([id number]) 1975 M Date Time Provider Department 05/13/22 2:20 PM JAZMINE ESTRELLA During your visit today, we recorded the following information about you: Pulse Blood pressure Weight Height 56/minute 138/96 113.9 kg 1.956 m Jazmine Estrella DO 05/13/2022 4:35 PM Signed [facility]IOLOG[facility] OUTPATIENT VISIT DATE May 13, 2022 PRIMARY CARE PHYSICIAN: Meng Mathews [address] [place] [address] [address] [place] [address] HISTORY OF PRESENT ILLNESS: Mr. Wylie is a 47 year old male. The patient presents to establish local care to history of coronary disease status post stenting of his right coronary artery x3 in the setting of acute inferior wall myocardial infarction in November 2020. Since that time he has been plagued by degenerative disc disease with now chronic back discomfort. He unfortunately has apparently had challenges with intermittent loss of visits with his personal investment adviser. He apparently had some challenges as well with possible vasospasm for which metoprolol was changed to propanolol. He apparently was on an HU inhibitor as well which was discontinued and he was apparently placed therefore on diltiazem. Currently from a cardiac standpoint he is stable and asymptomatic. He denies chest,, dyspnea, with apnea, paroxysmal nocturnal dyspnea, palpitations, near-syncope, syncope, GI/ bleeding or melena. The patient is and lives at home with his who accompanies him today. He has grown children. 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 He smokes a pack of cigarettes per day which is down from significant previous. He uses THC currently to help with pain. This has been more recent due to his back discomfort. Cardiac risk factors: Age, gender, hypertension, hyperlipidemia, tobacco abuse, known CAD Pression: 1. Coronary disease status post acute inferior wall microinfarction status post stenting x3 RCA 2. Hypertension 3. Hyperlipidemia 4. History of gastric bypass surgery. Monica-en-Y. Patient's all-time highest weight was well over 500 pounds he states. 5. History of degenerative disc disease PLAN AND RECOMMENDATIONS: The patient appears stable without symptoms of suggest angina or cardiac decompensation. We unfortunately do not have old records nor recent labs. His EKG appears stable. He appears to be on guideline directed therapy. He may discontinue his Brilinta. At this point time we would update an echocardiogram to reeval heart structure and function. We will follow-up with him in 3 months time for reevaluation. We will try to obtain old records in the interim. Dietary and lifestyle modification was otherwise reemphasized to facilitate risk factor reduction and prevention of future cardiovascular events. Vitals: BP 138/96 (BP Site: Left Arm, BP Position: Sitting, BP Cuff Size: Large Adult) Pulse (!) 56 Ht 195.6 cm (6' 5 ) Wt 113.9 kg (251 lb) SpO2 97% BMI 29.76 kg/m? Physical Exam Vitals reviewed. Constitutional: General: He is not in acute distress. Appearance: Normal appearance. He is well-developed. He is not diaphoretic. HENT: Head: Normocephalic and atraumatic. Right Ear: External ear normal. Left Ear: External ear normal. Nose: Nose normal. Eyes: General: No scleral icterus. Right eye: No discharge. Left eye: No discharge. Pupils: Pupils are equal, round, and reactive to light. Neck: Thyroid: No thyromegaly. Vascular: No carotid bruit or JVD. Cardiovascular: Rate and Rhythm: Normal rate and regular rhythm. Heart sounds: No murmur heard. No friction rub. No gallop. Pulmonary: Effort: Pulmonary effort is normal. No respiratory distress. Breath sounds: Normal breath sounds. No wheezing or rales. Abdominal: General: Bowel sounds are normal. Palpations: Abdomen is soft. Musculoskeletal: General: Normal range of motion. Cervical back: Neck supple. Skin: General: Skin is warm and dry. Capillary Refill: Capillary refill takes less than 2 seconds. Coloration: Skin is not pale. Neurological: Mental Status: He is alert and oriented to person, place, and time. Cranial Nerves: No cranial nerve deficit. Psychiatric: Mood and Affect: Mood normal. Mood is not anxious or depressed. Behavior: Behavior normal. Thought Content: Thought content normal. Judgment: Judgment normal. Review of Systems Constitutional: Negative for activity change, appetite change, fatigue and unexpected weight change. HENT: Negative for ear pain and trouble swallowing. Eyes: Negative for pain and visual disturbance. Respiratory: Negative for chest tightness and shortness of breath. Cardiovascular: Negative for chest pain, palpitations and leg swelling. Gastrointestinal: Negative for abdom (more content not included)... Normal [facility] ECG COMPLETEon 05-13-2022 ECG COMPLETE Ventricular Rate : 5 3 BPM Atrial Rate : 53 BPM P-R Interval : 180 ms QRS Duration : 94 ms Q-T Interval : 456 ms QTC Calculation(Bazett) : 427 ms Calculated P Stewardson : 3 degrees Calculated R Stewardson : 28 degrees Calculated T Stewardson : 54 degrees SINUS BRADYCARDIA OTHERWISE NORMAL ECG Confirmed by MD ESTRELLA GREGORY () on 05/14/2022 12:52:27 PM NAME : ELIJAH WYLIE PID : [id number] : 1975 Gender : Male Race : ORD : [id number] Procedure Date : May 13 2022 14:35:45 Edit Date : May 14 2022 12:52:29 Diagnosis: SINUS BRADYCARDIA OTHERWISE NORMAL ECG Confirmed by MD ESTRELLA GREGORY () on 05/14/2022 12:52:27 PM Test Reason : Location : 158 : [facility] Overread By : MD ESTRELLA GREGORY Edited By : MD ESTRELLA GREGORY Referred By : JAZMINE ESTRELLA Acquired by : HK, Normal [facility] BMPon 03-23-2022 Anion gap [Moles/Vol] 9 mmol/L [facility] Calcium [Mass/Vol] 9.0 mg/dL 8.5 - 9.9 mg/dL [facility] Chloride [Moles/Vol] 107 mmol/L [facility] CO2 [Moles/Vol] 24 mmol/L [facility] Creatinine [Mass/Vol] 0.79 mg/dL 0.70 - 1.20 mg/dL [facility] GFR/1.73 sq M.predicted MDRD (S/P/Bld) [Vol rate/Area] 60 - PINF [facility] Comment on above: Pediatric calculator link https://www.kidney.org/professionals/kdoqi/gfr_calculatorped Effective Feb 15, 2022 These results are not intended for use in patients <18 years of age. eGFR results are calculated without a race factor using the 2020 CKD-EPI equation. Careful clinical correlation is recommended, particularly when comparing to results calculated using previous equations. The CKD-EPI equation is less accurate in patients with extremes of muscle mass, extra-renal metabolism of creatinine, excessive creatinine ingestion, or following therapy that affects renal tubular secretion. Glucose [Mass/Vol] 97 mg/dL 70 - 99 mg/dL [facility] Potassium [Moles/Vol] 4.1 mmol/L [facility] Sodium [Moles/Vol] 140 mmol/L [facility] Urea nitrogen (BldV) [Mass/Vol] 9 mg/dL 6 - 20 mg/dL [facility] Basic Metabolic Panelon Anion gap [Moles/Vol] 9 mmol/L Normal 9-15 [facility] Comment on above: Performed By: #### B MP ####[facility] [facility] [phone] Calcium [Mass/Vol] 9.0 mg/dL Normal 8.5-9.9 [facility] Comment on above: Performed By: #### B MP ####[facility] [facility] [phone] Chloride [Moles/Vol] 107 mmol/L Normal 95-107 [facility] Comment on above: Performed By: #### B MP ####[facility] [facility] [phone] CO2 [Moles/Vol] 24 mmol/L Normal 20-31 [facility] Comment on above: Performed By: #### B MP ####[facility] [facility] [phone] Creatinine [Mass/Vol] 0.79 mg/dL Normal 0.70-1.20 [facility] Comment on above: Performed By: #### B MP ####[facility] [facility] [phone] GFR >60.0 Normal >60 [facility] Comment on above: Result Comment: Stew atric calculator link https://www.kidney.org/professionals/kdoqi/gfr_calculatorped Effective Feb 15, 2022 These results are not intended for use in patients <18 years of age. eGFR results are calculated without a race factor using the 2020 CKD-EPI equation. Careful clinical correlation is recommended, particularly when comparing to results calculated using previous equations. The CKD-EPI equation is less accurate in patients with extremes of muscle mass, extra-renal metabolism of creatinine, excessive creatinine ingestion, or following therapy that affects renal tubular secretion. Performed By: #### B MP ####[facility] [facility] [phone] Glucose [Mass/Vol] 97 mg/dL Normal 70-99 [facility] Comment on above: Performed By: #### B MP ####[facility] [facility] [phone] Potassium [Moles/Vol] 4.1 mmol/L Normal 3.4-4.9 [facility] Comment on above: Performed By: #### B MP ####[facility] [facility] [phone] Sodium [Moles/Vol] 140 mmol/L Normal 135-144 [facility] Comment on above: Performed By: #### B MP ####[facility] [place] [phone] Urea nitrogen [Mass/Vol] 9 mg/dL Normal 6-20 [facility] Comment on above: Performed By: #### B MP ####[facility] [place] [phone] CBC With Platelet and Differ entialon 03-23-2022 Abs Imm Granulocytes 0.0 K/uL Normal [facility] Comment on above: Performed By: #### C XWAN #### [facility] [address] [place] [address] Basophils (Bld) [#/Vol] 0.1 10*3/uL Normal 0.0-0.1 [facility] Comment on above: Performed By: #### C XWAN #### [facility] [address] [place] [address] Basophils/100 WBC (Bld) 1.3 % Critically high 0.2-1.2 [facility] Comment on above: Performed By: #### C XWAN #### [facility] [address] [place] [address] Eosinophils (Bld) [#/Vol] 0.3 10*3/uL Normal 0.0-0.5 [facility] Comment on above: Performed By: #### C XWAN #### [facility] [address] [place] [address] Eosinophils/100 WBC (Bld) 4.1 % Normal 0.8-7.0 [facility] Comment on above: Performed By: #### C XWAN #### [facility] [address] [place] [address] Erythrocyte distribution width (RBC) [Ratio] 14.0 % Normal 11.6-14.4 [facility] Comment on above: Performed By: #### C XWAN #### [facility] [address] [place] [address] Hematocrit (Bld) [Volume fraction] 43.2 % Normal 42.0-52.0 [facility] Comment on above: Performed By: #### C XWAN #### [facility] [address] [place] [address] Hemoglobin (Bld) [Mass/Vol] 14.2 g/dL Normal 13.7-17.5 [facility] Comment on above: Performed By: #### C XWAN #### [facility] [address] [place] [address] Imm Granulocytes 0.4 % Normal [facility] Comment on above: Performed By: #### C XWAN #### [facility] [address] [place] [address] Lymphocytes (Bld) [#/Vol] 2.6 10*3/uL Normal 1.3-3.6 [facility] Comment on above: Performed By: #### C XWAN #### [facility] [address] [place] [address] Lymphocytes/100 WBC (Bld) 31.2 % Normal [facility] Comment on above: Performed By: #### C XWAN #### [facility] [address] [place] [address] MCH (RBC) [Entitic mass] 30.3 pg Normal 25.7-32.2 [facility] Comment on above: Performed By: #### C XWAN #### [facility] [address] [place] [address] MCHC 32.9 % Normal 32.3-36.5 [facility] Comment on above: Performed By: #### C XWAN #### [facility] [address] [place] [address] MCV (RBC) [Entitic vol] 92.3 fL Critically high 79.0-92.2 [facility] Comment on above: Performed By: #### C XWAN #### [facility] [address] [place] [address] Monocytes (Bld) [#/Vol] 0.5 10*3/uL Normal 0.3-0.8 [facility] Comment on above: Performed By: #### C XTALISHA #### [facility] [address] [place] [address] Monocytes/100 WBC (Bld) 6.5 % Normal 5.3-12.2 [facility] Comment on above: Performed By: #### C XTALISHA #### [facility] [address] [place] [address] Neutrophils (Bld) [#/Vol] 4.7 10*3/uL Normal 1.8-5.4 [facility] Comment on above: Performed By: #### C XTALISHA #### [facility] [address] [place] [address] Neutrophils/100 WBC (Bld) 56.5 % Normal 34.0-67.9 [facility] Comment on above: Performed By: #### C XTALISHA #### [facility] [address] [place] [address] Platelets (Bld) [#/Vol] 180 10*3/uL Normal 163-337 [facility] Comment on above: Performed By: #### C XTALISHA #### [facility] [address] [place] [address] RBC (Bld) [#/Vol] 4.68 10*6/uL Normal 4.63-6.08 [facility] Comment on above: Performed By: #### C XTALISHA #### [facility] [address] [place] [address] WBC (Bld) [#/Vol] 8.3 10*3/uL Normal 4.2-9.0 [facility] Comment on above: Performed By: #### C XTALISHA #### [facility] [address] [place] [address] CBC with Auto Differentialon 03-23-2022 Basophils (Bld) [#/Vol] 0.1 10*3/uL 0.0 - 0.1 K/uL [facility] Basophils/100 WBC (Bld) 1.3 % High 0.2 - 1.2 % [facility] Eosinophils (Bld) [#/Vol] 0.3 10*3/uL 0.0 - 0.5 K/uL [facility] Eosinophils/100 WBC (Bld) 4.1 % 0.8 - 7.0 % [facility] Hematocrit (Bld) [Volume fraction] 43.2 % 42.0 - 52.0 % [facility] Hemoglobin (Bld) [Mass/Vol] 14.2 g/dL 13.7 - 17.5 g/dL [facility] Immature granulocytes (Bld) [#/Vol] 0.0 10*3/uL [facility] Immature granulocytes/100 WBC (Bld) 0.4 % [facility] Interpretation and review of laboratory results Abnormal [facility] Lymphocytes (Bld) [#/Vol] 2.6 10*3/uL 1.3 - 3.6 K/uL [facility] Lymphocytes/100 WBC (Bld) 31.2 % [facility] MCH (RBC) [Entitic mass] 30.3 pg 25.7 - 32.2 pg [facility] MCHC (RBC) [Mass/Vol] 32.9 % 32.3 - 36.5 % [facility] MCV (RBC) [Entitic vol] 92.3 fL High 79.0 - 92.2 fL [facility] Monocytes (Bld) [#/Vol] 0.5 10*3/uL 0.3 - 0.8 K/uL [facility] Monocytes/100 WBC (Bld) 6.5 % 5.3 - 12.2 % [facility] Neutrophils Absolute 4.7 K/uL 1.8 - 5 .4 K/uL [facility] Neutrophils/100 WBC (Bld) 56.5 % 34.0 - 67.9 % [facility] Platelet distribution width (Bld) [Ratio] 14.0 % 11.6 - 14.4 % [facility] Platelets (Bld) [#/Vol] 180 10*3/uL 163 - 337 K/uL [facility] RBC (Bld) [#/Vol] 4.68 10*6/uL [facility] WBC (Bld) [#/Vol] 8.3 10*3/uL 4.2 - 9.0 K/uL [facility] CT CERVICAL SPINE WO CONTRAS Ton 03-23-2022 CT CERVICAL SPINE WO CONTRAST EXAMINATION: CT OF THE CERVICAL SPINE WITHOUT CONTRAST 03/23/2022 10:34 am TECHNIQUE: CT of the cervical spine was performed without the administration of intravenous contrast. Multiplanar reformatted images are provided for review. Automated exposure control, iterative reconstruction, and/or weight based adjustment of the mA/kV was utilized to reduce the radiation dose to as low as reasonably achievable. COMPARISON: None. HISTORY: ORDERING SYSTEM PROVIDED HISTORY: trauma TECHNOLOGIST PROVIDED HISTORY: Reason for exam:->trauma Decision Support Exception - unselect if not a suspected or confirmed emergency medical condition->Emergency Medical Condition (MA) What reading provider will be dictating this exam?->CRC FINDINGS: The ring of C1 is intact as is the dense. There is no compression fracture of the cervical spine. No jumped or perched facet is noted. Multilevel degenerative disc and degenerative joint disease is noted. The prevertebral soft tissues are unremarkable. The airway is widely patent. Images through the lung apices are negative for a pneumothorax. IMPRESSION: 1. There is no acute compression fracture or subluxation of the cervical spine. 2. Very minimal multilevel degenerative disc and degenerative joint disease. . Interpreted by: Kip Hill MD Signed by: Kip Hill MD 03/23/22 Final result Normal [facility] 1. There is no acute compression fracture or subluxation of the cervical spine. 2. Very minimal multilevel degenerative disc and degenerative joint disease. . [facility]: CT OF THE CERVICAL SPINE WITHOUT CONTRAST 03/23/2022 10:34 am TECHNIQUE: CT of the cervical spine was performed without the administration of intravenous contrast. Multiplanar reformatted images are provided for review. Automated exposure control, iterative reconstruction, and/or weight based adjustment of the mA/kV was utilized to reduce the radiation dose to as low as reasonably achievable. COMPARISON: None. HISTORY: ORDERING SYSTEM PROVIDED HISTORY: trauma TECHNOLOGIST PROVIDED HISTORY: Reason for exam:->trauma Decision Support Exception - unselect if not a suspected or confirmed emergency medical condition->Emergency Medical Condition (MA) What reading provider will be dictating this exam?->CRC FINDINGS: The ring of C1 is intact as is the dense. There is no compression fracture of the cervical spine. No jumped or perched facet is noted. Multilevel degenerative disc and degenerative joint disease is noted. The prevertebral soft tissues are unremarkable. The airway is widely patent. Images through the lung apices are negative for a pneumothorax. [facility] RADIOLOGY HillKip holder MD - 03/23/2022 EXAMINATION: CT OF THE CERVICAL SPINE WITHOUT CONTRAST 03/23/2022 10:34 am TECHNIQUE: CT of the cervical spine was performed without the administration of intravenous contrast. Multiplanar reformatted images are provided for review. Automated exposure control, iterative reconstruction, and/or weight based adjustment of the mA/kV was utilized to reduce the radiation dose to as low as reasonably achievable. COMPARISON: None. HISTORY: ORDERING SYSTEM PROVIDED HISTORY: trauma TECHNOLOGIST PROVIDED HISTORY: Reason for exam:->trauma Decision Support Exception - unselect if not a suspected or confirmed emergency medical condition->Emergency Medical Condition (MA) What reading provider will be dictating this exam?->CRC FINDINGS: The ring of C1 is intact as is the dense. There is no compression fracture of the cervical spine. No jumped or perched facet is noted. Multilevel degenerative disc and degenerative joint disease is noted. The prevertebral soft tissues are unremarkable. The airway is widely patent. Images through the lung apices are negative for a pneumothorax. IMPRESSION: 1. There is no acute compression fracture or subluxation of the cervical spine. 2. Very minimal multilevel degenerative disc and degenerative joint disease. . [employer] Work Phone: CT HEAD WO CONTRASTon 2021 CT HEAD WO CONTRAST EXAMINATION: CT OF THE HEAD WITHOUT CONTRAST 03/23/2022 10:34 am TECHNIQUE: CT of the head was performed without the administration of intravenous contrast. Automated exposure control, iterative reconstruction, and/or weight based adjustment of the mA/kV was utilized to reduce the radiation dose to as low as reasonably achievable. COMPARISON: None. HISTORY: ORDERING SYSTEM PROVIDED HISTORY: trauma TECHNOLOGIST PROVIDED HISTORY: Has a code stroke or stroke alert been called?->No Reason for exam:->trauma Decision Support Exception - unselect if not a suspected or confirmed emergency medical condition->Emergency Medical Condition ([place]) What reading provider will be dictating this exam?->CRC FINDINGS: BRAIN/VENTRICLES: There is no acute intracranial hemorrhage, mass effect or midline shift. No abnormal extra-axial fluid collection. The lopez-white differentiation is maintained without evidence of an acute infarct. There is no evidence of hydrocephalus. ORBITS: The visualized portion of the orbits demonstrate no acute abnormality. SINUSES: The visualized paranasal sinuses and mastoid air cells demonstrate no acute abnormality. SOFT TISSUES/SKULL: No acute abnormality of the visualized skull or soft tissues. IMPRESSION: No acute intracranial abnormality. Specifically, there is no acute intracranial hemorrhage Interpreted by: Kip Hill MD Signed by: Kip Hill MD 03/23/22 Final result Normal [facility] No acute intracrania l abnormality. Specifically, there is no acute intracranial hemorrhage [facility] RADIOLOGY EXAMINATION: CT OF THE HEAD WITHOUT CONTRAST 03/23/2022 10:34 am TECHNIQUE: CT of the head was performed without the administration of intravenous contrast. Automated exposure control, iterative reconstruction, and/or weight based adjustment of the mA/kV was utilized to reduce the radiation dose to as low as reasonably achievable. COMPARISON: None. HISTORY: ORDERING SYSTEM PROVIDED HISTORY: trauma TECHNOLOGIST PROVIDED HISTORY: Has a code stroke or stroke alert been called?->No Reason for exam:->trauma Decision Support Exception - unselect if not a suspected or confirmed emergency medical condition->Emergency Medical Condition ([place]) What reading provider will be dictating this exam?->CRC FINDINGS: BRAIN/VENTRICLES: There is no acute intracranial hemorrhage, mass effect or midline shift. No abnormal extra-axial fluid collection. The lopez-white differentiation is maintained without evidence of an acute infarct. There is no evidence of hydrocephalus. ORBITS: The visualized portion of the orbits demonstrate no acute abnormality. SINUSES: The visualized paranasal sinuses and mastoid air cells demonstrate no acute abnormality. SOFT TISSUES/SKULL: No acute abnormality of the visualized skull or soft tissues. [facility] RADIOLOGY Kip Hill MD - 03/23/2022 EXAMINATION: CT OF THE HEAD WITHOUT CONTRAST 03/23/2022 10:34 am TECHNIQUE: CT of the head was performed without the administration of intravenous contrast. Automated exposure control, iterative reconstruction, and/or weight based adjustment of the mA/kV was utilized to reduce the radiation dose to as low as reasonably achievable. COMPARISON: None. HISTORY: ORDERING SYSTEM PROVIDED HISTORY: trauma TECHNOLOGIST PROVIDED HISTORY: Has a code stroke or stroke alert been called?->No Reason for exam:->trauma Decision Support Exception - unselect if not a suspected or confirmed emergency medical condition->Emergency Medical Condition (MA) What reading provider will be dictating this exam?->CRC FINDINGS: BRAIN/VENTRICLES: There is no acute intracranial hemorrhage, mass effect or midline shift. No abnormal extra-axial fluid collection. The lopez-white differentiation is maintained without evidence of an acute infarct. There is no evidence of hydrocephalus. ORBITS: The visualized portion of the orbits demonstrate no acute abnormality. SINUSES: The visualized paranasal sinuses and mastoid air cells demonstrate no acute abnormality. SOFT TISSUES/SKULL: No acute abnormality of the visualized skull or soft tissues. IMPRESSION: No acute intracranial abnormality. Specifically, there is no acute intracranial hemorrhage [facility] Work Phone: CT LUMBAR SPINE WO CONTRASTo n 03-23-2022 CT LUMBAR SPINE WO CONTRAST EXAMINATION: CT OF THE LUMBAR SPINE WITHOUT CONTRAST 03/23/2022 TECHNIQUE: CT of the lumbar spine was performed without the administration of intravenous contrast. Multiplanar reformatted images are provided for review. Adjustment of mA and/or kV according to patient size was utilized. Automated exposure control, iterative reconstruction, and/or weight based adjustment of the mA/kV was utilized to reduce the radiation dose to as low as reasonably achievable. COMPARISON: 10/23/2021 CT lumbar spine report HISTORY: ORDERING SYSTEM PROVIDED HISTORY: trauma, hx lumbar fractures in 5 months ago TECHNOLOGIST PROVIDED HISTORY: Reason for exam:->trauma, hx lumbar fractures in 5 months ago Decision Support Exception - unselect if not a suspected or confirmed emergency medical condition->Emergency Medical Condition ([place]) What reading provider will be dictating this exam?->CRC FINDINGS: BONES/ALIGNMENT: There is normal alignment of the spine. The vertebral body heights are maintained. No osseous destructive lesion is seen. Healing fractures of the L2 through L4 right transverse process are noted. No new fractures. Vertebral body heights are well maintained. DEGENERATIVE CHANGES: Minimal facet arthropathy at the lower 2 lumbar levels. Mild degenerative disc disease at L5-S1 with disc bulge but no evidence of central canal stenosis. There are findings compatible with a central HERNIATION OF DISC MATERIAL at L4-5. There is circumferential thecal sac narrowing. The thecal sac measures 6 mm in the midline. Foramina appear patent. SOFT TISSUES/RETROPERITONEUM: No paraspinal mass is seen. IMPRESSION: 1. No new lumbar spine fractures. Transverse process fractures from L2 through L4 on the right, old. 2. 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 Thecal sac measures 6 mm. Interpreted by: Dwayne Ramos MD Signed by: Dwayne Ramos MD 03/23/22 Final result Normal [facility] 1. No new lumbar spi ne fractures. Transverse process fractures from L2 through L4 on the right, old. 2. 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 Thecal sac measures 6 mm. [facility] RADIOLOGY EXAMINATION: CT OF THE LUMBAR SPINE WITHOUT CONTRAST 03/23/2022 TECHNIQUE: CT of the lumbar spine was performed without the administration of intravenous contrast. Multiplanar reformatted images are provided for review. Adjustment of mA and/or kV according to patient size was utilized. Automated exposure control, iterative reconstruction, and/or weight based adjustment of the mA/kV was utilized to reduce the radiation dose to as low as reasonably achievable. COMPARISON: 10/23/2021 CT lumbar spine report HISTORY: ORDERING SYSTEM PROVIDED HISTORY: trauma, hx lumbar fractures in 5 months ago TECHNOLOGIST PROVIDED HISTORY: Reason for exam:->trauma, hx lumbar fractures in 5 months ago Decision Support Exception - unselect if not a suspected or confirmed emergency medical condition->Emergency Medical Condition (MA) What reading provider will be dictating this exam?->CRC FINDINGS: BONES/ALIGNMENT: There is normal alignment of the spine. The vertebral body heights are maintained. No osseous destructive lesion is seen. Healing fractures of the L2 through L4 right transverse process are noted. No new fractures. Vertebral body heights are well maintained. DEGENERATIVE CHANGES: Minimal facet arthropathy at the lower 2 lumbar levels. Mild degenerative disc disease at L5-S1 with disc bulge but no evidence of central canal stenosis. There are findings compatible with a central HERNIATION OF DISC MATERIAL at L4-5. There is circumferential thecal sac narrowing. The thecal sac measures 6 mm in the midline. Foramina appear patent. SOFT TISSUES/RETROPERITONEUM: No paraspinal mass is seen. [facility] RADIOLOGY Dwayne Ramos MD - EXAMINATION: CT OF THE LUMBAR SPINE WITHOUT CONTRAST 03/23/2022 TECHNIQUE: CT of the lumbar spine was performed without the administration of intravenous contrast. Multiplanar reformatted images are provided for review. Adjustment of mA and/or kV according to patient size was utilized. Automated exposure control, iterative reconstruction, and/or weight based adjustment of the mA/kV was utilized to reduce the radiation dose to as low as reasonably achievable. COMPARISON: 10/23/2021 CT lumbar spine report HISTORY: ORDERING SYSTEM PROVIDED HISTORY: trauma, hx lumbar fractures in 5 months ago TECHNOLOGIST PROVIDED HISTORY: Reason for exam:->trauma, hx lumbar fractures in 5 months ago Decision Support Exception - unselect if not a suspected or confirmed emergency medical condition->Emergency Medical Condition ([place]) What reading provider will be dictating this exam?->CRC FINDINGS: BONES/ALIGNMENT: There is normal alignment of the spine. The vertebral body heights are maintained. No osseous destructive lesion is seen. Healing fractures of the L2 through L4 right transverse process are noted. No new fractures. Vertebral body heights are well maintained. DEGENERATIVE CHANGES: Minimal facet arthropathy at the lower 2 lumbar levels. Mild degenerative disc disease at L5-S1 with disc bulge but no evidence of central canal stenosis. There are findings compatible with a central HERNIATION OF DISC MATERIAL at L4-5. There is circumferential thecal sac narrowing. The thecal sac measures 6 mm in the midline. Foramina appear patent. SOFT TISSUES/RETROPERITONEUM: No paraspinal mass is seen. IMPRESSION: 1. No new lumbar spine fractures. Transverse process fractures from L2 through L4 on the right, old. 2. 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 Thecal sac measures 6 mm. [employer] Work Phone: No Panel Informationon 03-23 Radiology Study observation (narrative) [employer] Work Phone: [employer] No Panel InformationOrdered By: Sylvain Bradshaw on 03-23-2022 [employer] Work Phone: Urinalysis with Reflex to Cu ltureon 03-23-2022 Bilirubin Urine Negative Negative [facility] Blood, Urine Negative Negative [facility] Clarity, UA Clear Clear [facility] Color, UA Yellow Straw/[place] ow [facility] Glucose, Ur Negative Negative mg/dL [facility] Ketones Ql (U) Negative Negative mg/dL [facility] Leukocyte esterase Test strip Ql (U) Negative Negative [facility] Nitrite, Urine Negative Negative [facility] pH, UA 7.5 5.0 - 9.0 [facility] Protein, UA Negative Negative mg/dL [facility] Specific [place], UA 1.015 1.005 - 1.030 [facility] Urine Reflex to Culture Not Indicated [facility] Urobilinogen, Urine 1.0 NINF [facility] Urinalysis, reflex to cultur carol 03-23-2022 Bilirubin Ql (U) Negative Normal Negative [facility] Comment on above: Performed By: #### U AR #### [facility] [address] [place] [address] Clarity (U) Clear Normal Clear [facility] Comment on above: Performed By: #### U AR #### [facility] [address] [place] [address] Color (U) Yellow Normal Straw/[place] [facility] Comment on above: Performed By: #### U AR #### [facility] [address] [place] [address] Glucose Ql (U) Negative Normal Negative [facility] Comment on above: Performed By: #### U AR #### [facility] [address] [place] [address] Hemoglobin Ql (U) Negative Normal Negative [facility] Comment on above: Performed By: #### U AR #### [facility] [address] [place] [address] Ketones Ql (U) Negative Normal Negative [facility] Comment on above: Performed By: #### U AR #### [facility] [address] [place] [address] Leukocyte esterase Test strip Ql (U) Negative Normal Negative [facility] Comment on above: Performed By: #### U AR #### [facility] [address] [place] [address] Nitrite Ql (U) Negative Normal Negative [facility] Comment on above: Performed By: #### U AR #### [facility] [address] [place] [address] pH (U) 7.5 [pH] Normal 5.0-9.0 [facility] Comment on above: Performed By: #### U AR #### [facility] [address] [place] [address] Protein Ql (U) Negative Normal Negative [facility] Comment on above: Performed By: #### U AR #### [facility] [address] [place] [address] Specific gravity (U) [Rel density] 1.015 Normal 1.005-1.03 [facility] Comment on above: Performed By: #### U AR #### [facility] [address] [place] [address] Urine Reflexed to Culture Not Indicated Normal [facility] Comment on above: Performed By: #### U AR #### [facility] [address] [place] [address] Urobilinogen Qn (U) 1.0 {[place]'U}/dL Normal < 2.0 [facility] Comment on above: Performed By: #### U AR #### [facility] [address] [place] [address] XR CHEST (2 VW)on 03-23-2022 XR CHEST (2 VW) EXAMINATION: TWO XRAY VIEWS OF THE CHEST 03/23/2022 10:50 am COMPARISON: 05/14/2021 HISTORY: ORDERING SYSTEM PROVIDED HISTORY: trauma TECHNOLOGIST PROVIDED HISTORY: Reason for exam:->trauma What reading provider will be dictating this exam?->CRC FINDINGS: The lungs are without acute focal process. There is no effusion or pneumothorax. The cardiomediastinal silhouette is without acute process. The osseous structures are without acute process. IMPRESSION: No acute process. Interpreted by: Kip Hill MD Signed by: Kip Hill MD 03/23/22 Final result Normal [facility] No acute process. [facility] RADIOLOGY EXAMINATION: TWO XRAY VIEWS OF THE CHEST 03/23/2022 10:50 am COMPARISON: 05/14/2021 HISTORY: ORDERING SYSTEM PROVIDED HISTORY: trauma TECHNOLOGIST PROVIDED HISTORY: Reason for exam:->trauma What reading provider will be dictating this exam?->CRC FINDINGS: The lungs are without acute focal process. There is no effusion or pneumothorax. The cardiomediastinal silhouette is without acute process. The osseous structures are without acute process. [facility] RADIOLOGY Kip Hill MD - 03/23/2022 EXAMINATION: TWO XRAY VIEWS OF THE CHEST 03/23/2022 10:50 am COMPARISON: 05/14/2021 HISTORY: ORDERING SYSTEM PROVIDED HISTORY: trauma TECHNOLOGIST PROVIDED HISTORY: Reason for exam:->trauma What reading provider will be dictating this exam?->CRC FINDINGS: The lungs are without acute focal process. There is no effusion or pneumothorax. The cardiomediastinal silhouette is without acute process. The osseous structures are without acute process. IMPRESSION: No acute process. [employer] [facility] Work Phone: XR SHOULDER RIGHT (MIN 2 VIE WS)on 03-23-2022 XR SHOULDER RIGHT (MIN 2 VIEWS) EXAMINATION: THREE XRAY VIEWS OF THE RIGHT SHOULDER 03/23/2022 9:50 am COMPARISON: None. HISTORY: ORDERING SYSTEM PROVIDED HISTORY: trauma TECHNOLOGIST PROVIDED HISTORY: Reason for exam:->trauma What reading provider will be dictating this exam?->CRC FINDINGS: There is no evidence of acute fracture. There is normal alignment. No acute joint abnormality. No focal osseous lesion. No focal soft tissue abnormality. IMPRESSION: Unremarkable right shoulder. Interpreted by: Sylvain Bradshaw MD Signed by: Sylvain Bradshaw MD 03/23/22 Final result Normal [facility] Unremarkable right s houlder. [facility] RADIOLOGY EXAMINATION: THREE XRAY VIEWS OF THE RIGHT SHOULDER 03/23/2022 9:50 am COMPARISON: None. HISTORY: ORDERING SYSTEM PROVIDED HISTORY: trauma TECHNOLOGIST PROVIDED HISTORY: Reason for exam:->trauma What reading provider will be dictating this exam?->CRC FINDINGS: There is no evidence of acute fracture. There is normal alignment. No acute joint abnormality. No focal osseous lesion. No focal soft tissue abnormality. [facility] RADIOLOGY Sylvain Bradshaw MD - 03/23/2022 EXAMINATION: THREE XRAY VIEWS OF THE RIGHT SHOULDER 03/23/2022 9:50 am COMPARISON: None. HISTORY: ORDERING SYSTEM PROVIDED HISTORY: trauma TECHNOLOGIST PROVIDED HISTORY: Reason for exam:->trauma What reading provider will be dictating this exam?->CRC FINDINGS: There is no evidence of acute fracture. There is normal alignment. No acute joint abnormality. No focal osseous lesion. No focal soft tissue abnormality. IMPRESSION: Unremarkable right shoulder. [facility] [employer] [facility] Work Phone: XR KNEE RIGHT (MIN 4 VIEWS)o n 12-02-2021 XR KNEE RIGHT (MIN 4 VIEWS) COMPARISON: No prior HISTORY: fell off a ladder PATIENT NAME: ELIJAH WYLIE: TECHNIQUE: XR KNEE RIGHT (MIN 4 VIEWS) FINDINGS: Joint spaces are preserved. No acute fracture or dislocation is visualized. A density is seen medial to the metaphyseal region of the tibia that measures 6 mm. This may be a phlebolith. IMPRESSION: No acute fracture or dislocation is seen. There is no appreciable effusion. Interpreted by: Kristen Henry DO Signed by: Kristen Henry DO 12/02/21 Final result Normal [facility] Alcoholon 10-23-2021 Blood Alcohol Concentration Not indicated Normal [facility] Comment on above: Performed By: #### T ROP #### [facility] [address] [place] [address] Ethanol [Mass/Vol] mg/dL Normal [facility] Comment on above: Performed By: #### T ROP #### [facility] [address] [place] [address] CBC With Platelet and Differ entialon 10-23-2021 Abs Imm Granulocytes 0.1 K/uL Normal [facility] Comment on above: Performed By: #### T ROP #### [facility] [address] [place] [address] Basophils (Bld) [#/Vol] 0.1 10*3/uL Normal 0.0-0.1 [facility] Comment on above: Performed By: #### T ROP #### [facility] [address] [place] [address] Basophils/100 WBC (Bld) 0.9 % Normal 0.2-1.2 [facility] Comment on above: Performed By: #### T ROP #### [facility] [address] [place] [address] Eosinophils (Bld) [#/Vol] 0.4 10*3/uL Normal 0.0-0.5 [facility] Comment on above: Performed By: #### T ROP #### [facility] [address] [place] [address] Eosinophils/100 WBC (Bld) 2.7 % Normal 0.8-7.0 [facility] Comment on above: Performed By: #### T ROP #### [facility] [address] [place] [address] Erythrocyte distribution width (RBC) [Ratio] 14.7 % Critically high 11.6-14.4 [facility] Comment on above: Performed By: #### T ROP #### [facility] [address] [place] [address] Hematocrit (Bld) [Volume fraction] 44.6 % Normal 42.0-52.0 [facility] Comment on above: Performed By: #### T ROP #### [facility] [address] [place] [address] Hemoglobin (Bld) [Mass/Vol] 15.4 g/dL Normal 13.7-17.5 [facility] Comment on above: Performed By: #### T ROP #### [facility] [address] [place] [address] Imm Granulocytes 0.4 % Normal [facility] Comment on above: Performed By: #### T ROP #### [facility] [address] [place] [address] Lymphocytes (Bld) [#/Vol] 2.3 10*3/uL Normal 1.3-3.6 [facility] Comment on above: Performed By: #### T ROP #### [facility] [address] [place] [address] Lymphocytes/100 WBC (Bld) 17.0 % Normal [facility] Comment on above: Performed By: #### T ROP #### [facility] [address] [place] [address] MCH (RBC) [Entitic mass] 32.4 pg Critically high 25.7-32.2 [facility] Comment on above: Performed By: #### T ROP #### [facility] [address] [place] [address] MCHC 34.5 % Normal 32.3-36.5 [facility] Comment on above: Performed By: #### T ROP #### [facility] [address] [place] [address] MCV (RBC) [Entitic vol] 93.9 fL Critically high 79.0-92.2 [facility] Comment on above: Performed By: #### T ROP #### [facility] [address] [place] [address] Monocytes (Bld) [#/Vol] 0.9 10*3/uL Critically high 0.3-0.8 [facility] Comment on above: Performed By: #### T ROP #### [facility] [address] [place] [address] Monocytes/100 WBC (Bld) 6.4 % Normal 5.3-12.2 [facility] Comment on above: Performed By: #### T ROP #### [facility] [address] [place] [address] Neutrophils (Bld) [#/Vol] 9.9 10*3/uL Critically high 1.8-5.4 [facility] Comment on above: Performed By: #### T ROP #### [facility] [address] [place] [address] Neutrophils/100 WBC (Bld) 72.6 % Critically high 34.0-67.9 [facility] Comment on above: Performed By: #### T ROP #### [facility] [address] [place] [address] Platelets (Bld) [#/Vol] 188 10*3/uL Normal 163-337 [facility] Comment on above: Performed By: #### T ROP #### [facility] [address] [place] [address] RBC (Bld) [#/Vol] 4.75 10*6/uL Normal 4.63-6.08 [facility] Comment on above: Performed By: #### T ROP #### [facility] [address] [place] [address] WBC (Bld) [#/Vol] 13.7 10*3/uL Critically high 4.2-9.0 [facility] Comment on above: Performed By: #### T ROP #### [facility] [address] [place] [address] CBC with Auto Differentialon 10-23-2021 Basophils (Bld) [#/Vol] 0.1 10*3/uL 0.0 - 0.1 K/uL [employer] [facility] Basophils/100 WBC (Bld) 0.9 % 0.2 - 1.2 % [facility] [employer] Eosinophils (Bld) [#/Vol] 0.4 10*3/uL 0.0 - 0.5 K/uL [facility] [facility] Eosinophils/100 WBC (Bld) 2.7 % 0.8 - 7.0 % [facility] Hematocrit (Bld) [Volume fraction] 44.6 % 42.0 - 52.0 % [employer] [facility] Hemoglobin (Bld) [Mass/Vol] 15.4 g/dL 13.7 - 17.5 g/dL [facility] Immature granulocytes (Bld) [#/Vol] 0.1 10*3/uL [facility] Immature granulocytes/100 WBC (Bld) 0.4 % [facility] Lymphocytes (Bld) [#/Vol] 2.3 10*3/uL 1.3 - 3.6 K/uL [facility] Lymphocytes/100 WBC (Bld) 17.0 % [facility] MCH (RBC) [Entitic mass] 32.4 pg High 25.7 - 32.2 pg [facility] MCHC (RBC) [Mass/Vol] 34.5 % 32.3 - 36.5 % [facility] MCV (RBC) [Entitic vol] 93.9 fL High 79.0 - 92.2 fL [facility] Monocytes (Bld) [#/Vol] 0.9 10*3/uL High 0.3 - 0.8 K/uL [facility] Monocytes/100 WBC (Bld) 6.4 % 5.3 - 12.2 % [facility] Neutrophils Absolute 9.9 K/uL High 1.8 - 5 .4 K/uL [facility] Neutrophils/100 WBC (Bld) 72.6 % High 34.0 - 67.9 % [facility] Platelet distribution width (Bld) [Ratio] 14.7 % High 11.6 - 14.4 % [facility] Platelets (Bld) [#/Vol] 188 10*3/uL 163 - 337 K/uL [facility] RBC (Bld) [#/Vol] 4.75 10*6/uL [facility] WBC (Bld) [#/Vol] 13.7 10*3/uL High 4.2 - 9.0 K/uL [facility] CT ABDOMEN PELVIS W IV CONTR Mark 10-23-2021 CT ABDOMEN PELVIS W IV CONTRAST Indication: Trauma. Comparison: CT chest of 02/24/[address] abdomen of 12/08/2018. Procedure: Scans were made from the thoracic inlet through the symphysis pubis. No oral contrast was given prior to scanning. 100 mL [id number] Intravenous contrast was given during scanning. Chest Findings: Extrathoracic: No chest wall hematomas. No axillary adenopathy. No subcutaneous nodules are seen. Pleura: No pleural effusion or pneumothorax. No pleural calcifications. Lungs: No lung injuries are seen. Minimum bibasilar dependent atelectasis. No acute consolidation. Patent major airways. No bronchiectasis. Mediastinum/Pati: No mediastinal hematomas. No adenopathy or masses Heart/Vessels: No vascular injuries are seen. No evidence of aortic aneurysm. No pericardial effusion. Other: No aggressive osseous lesions are seen. No new fractures are seen. Abdomen Findings: Liver/Biliary System: No liver injuries are seen. No liver masses. No intra or extrahepatic biliary dilatation. No gallstones or cholecystitis. Pancreas/Spleen: No pancreatic injuries are seen. No pancreatic masses. Pancreatic duct is not dilated. No splenic injuries are seen. No splenic masses. No splenomegaly. Kidneys/Adrenals: No renal injuries are seen. No renal stones or hydronephrosis. Normal symmetrical nephrograms. No renal or adrenal masses. Aorta/Vessels: No vascular injuries are seen. Patent IVC, renal veins and portal venous system. Bowel/Fluid/Nodes: No bowel injuries are seen. Couple of small bowel transient intussusceptions, of doubtful significance. No intra-abdominal hematomas. No abdominal wall hematomas. No ascites or fluid collections. No adenopathy. Other: Fracture right transverse processes of L2, L3 and L4 vertebrae without adjacent hematomas. No aggressive osseous lesions are seen. Pelvis Findings: No pelvic hematomas. No pelvic masses or adenopathy. Bladder, seminal vesicles and prostate grossly unremarkable. Mild sigmoid diverticulosis with no evidence of diverticulitis. Other: No fractures. No aggressive osseous lesions are seen. IMPRESSION: Impression: 1. Fracture right transverse processes of L2, L3 and L4 vertebrae without adjacent hematomas. 2. Otherwise, no organ injuries or hematomas are seen in chest, abdomen or pelvis. Interpreted by: Zamzam Resendez MD Signed by: Zamzam Resendez MD 10/23/21 Final result Normal [facility] CT CERVICAL SPINE WO CONTRAS Ton 10-23-2021 CT CERVICAL SPINE WO CONTRAST EXAMINATION: CT CERVICAL SPINE WO CONTRAST, 10/23/2021 2:27 PM CLINICAL HISTORY: trauma COMPARISON: None TECHNIQUE:Helical scanning was performed from the skull base through the remainder of the cervical spine without intravenous contrast. Sagittal and coronal reformats were obtained. The lack of contrast limits CT sensitivity of the soft tissues. All CT scans at this facility use dose modulation, iterative reconstruction, and/or weight based dosing when appropriate to reduce radiation dose to as low as reasonably achievable. COMPARISON: None CERVICAL SPINE CT FINDINGS The spine is in anatomic alignment. There is no loss of vertebral body height. There are no lytic or sclerotic bone lesions. The intervertebral disc spaces are preserved. The axial images demonstrate no significant central canal narrowing or neuroforaminal narrowing. The paraspinal soft tissues demonstrate a patent airway with no evidence of stenosis or mass. Larynx is normal with no evidence for vocal cord dysfunction. The lymph nodes, prevertebral and retrovertebral soft tissues are within normal limits. No acute changes are noted in the lung apices. IMPRESSION: There are no acute osseous changes. Interpreted by: Jerson Mane MD Signed by: Jerson Mane MD 10/23/21 Final result Normal [facility] There are no acute o sseous changes. [facility] RADIOLOGY EXAMINATION: CT CERVICAL SPINE WO CONTRAST, 10/23/2021 2:27 PM CLINICAL HISTORY: trauma COMPARISON: None TECHNIQUE:Helical scanning was performed from the skull base through the remainder of the cervical spine without intravenous contrast. Sagittal and coronal reformats were obtained. The lack of contrast limits CT sensitivity of the soft tissues. All CT scans at this facility use dose modulation, iterative reconstruction, and/or weight based dosing when appropriate to reduce radiation dose to as low as reasonably achievable. COMPARISON: None CERVICAL SPINE CT FINDINGS The spine is in anatomic alignment. There is no loss of vertebral body height. There are no lytic or sclerotic bone lesions. The intervertebral disc spaces are preserved. The axial images demonstrate no significant central canal narrowing or neuroforaminal narrowing. The paraspinal soft tissues demonstrate a patent airway with no evidence of stenosis or mass. Larynx is normal with no evidence for vocal cord dysfunction. The lymph nodes, prevertebral and retrovertebral soft tissues are within normal limits. No acute changes are noted in the lung apices. [facility] RADIOLOGY Jerson Mane MD - 10/23/2021 EXAMINATION: CT CERVICAL SPINE WO CONTRAST, 10/23/2021 2:27 PM CLINICAL HISTORY: trauma COMPARISON: None TECHNIQUE:Helical scanning was performed from the skull base through the remainder of the cervical spine without intravenous contrast. Sagittal and coronal reformats were obtained. The lack of contrast limits CT sensitivity of the soft tissues. All CT scans at this facility use dose modulation, iterative reconstruction, and/or weight based dosing when appropriate to reduce radiation dose to as low as reasonably achievable. COMPARISON: None CERVICAL SPINE CT FINDINGS The spine is in anatomic alignment. There is no loss of vertebral body height. There are no lytic or sclerotic bone lesions. The intervertebral disc spaces are preserved. The axial images demonstrate no significant central canal narrowing or neuroforaminal narrowing. The paraspinal soft tissues demonstrate a patent airway with no evidence of stenosis or mass. Larynx is normal with no evidence for vocal cord dysfunction. The lymph nodes, prevertebral and retrovertebral soft tissues are within normal limits. No acute changes are noted in the lung apices. IMPRESSION: There are no acute osseous changes. [employer] Work Phone: CT CHEST W CONTRASTon 2021 CT CHEST W CONTRAST Indication: Trauma. Comparison: CT chest of 02/24/[address] abdomen of 12/08/2018. Procedure: Scans were made from the thoracic inlet through the symphysis pubis. No oral contrast was given prior to scanning. 100 mL Isovue-370 Intravenous contrast was given during scanning. Chest Findings: Extrathoracic: No chest wall hematomas. No axillary adenopathy. No subcutaneous nodules are seen. Pleura: No pleural effusion or pneumothorax. No pleural calcifications. Lungs: No lung injuries are seen. Minimum bibasilar dependent atelectasis. No acute consolidation. Patent major airways. No bronchiectasis. Mediastinum/Pati: No mediastinal hematomas. No adenopathy or masses Heart/Vessels: No vascular injuries are seen. No evidence of aortic aneurysm. No pericardial effusion. Other: No aggressive osseous lesions are seen. No new fractures are seen. Abdomen Findings: Liver/Biliary System: No liver injuries are seen. No liver masses. No intra or extrahepatic biliary dilatation. No gallstones or cholecystitis. Pancreas/Spleen: No pancreatic injuries are seen. No pancreatic masses. Pancreatic duct is not dilated. No splenic injuries are seen. No splenic masses. No splenomegaly. Kidneys/Adrenals: No renal injuries are seen. No renal stones or hydronephrosis. Normal symmetrical nephrograms. No renal or adrenal masses. Aorta/Vessels: No vascular injuries are seen. Patent IVC, renal veins and portal venous system. Bowel/Fluid/Nodes: No bowel injuries are seen. Couple of small bowel transient intussusceptions, of doubtful significance. No intra-abdominal hematomas. No abdominal wall hematomas. No ascites or fluid collections. No adenopathy. Other: Fracture right transverse processes of L2, L3 and L4 vertebrae without adjacent hematomas. No aggressive osseous lesions are seen. Pelvis Findings: No pelvic hematomas. No pelvic masses or adenopathy. Bladder, seminal vesicles and prostate grossly unremarkable. Mild sigmoid diverticulosis with no evidence of diverticulitis. Other: No fractures. No aggressive osseous lesions are seen. IMPRESSION: Impression: 1. Fracture right transverse processes of L2, L3 and L4 vertebrae without adjacent hematomas. 2. Otherwise, no organ injuries or hematomas are seen in chest, abdomen or pelvis. Interpreted by: Zamzam Resendez MD Signed by: Zamzam Resendez MD 10/23/21 Final result Normal [facility] CT HEAD WO CONTRASTon 2021 CT HEAD WO CONTRAST EXAMINATION: CT HEAD WO CONTRAST, 10/23/2021 1:05 PM CLINICAL HISTORY: head injury COMPARISON: Brain CT from March 30, 2018 TECHNIQUE: Multiple contiguous axial images of the head were obtained from the skull base through the skull vertex without intravenous contrast. Sagittal and coronal 3D reformats have been produced. All CT scans at this facility use dose modulation, iterative reconstruction, and/or weight based dosing when appropriate to reduce radiation dose to as low as reasonably achievable. BRAIN CT FINDINGS: Lopez-white matter differentiation is maintained. No acute hemorrhage, mass, mass effect, or midline shift. There is no evidence of atrophy, ventricular morphology is within normal limits. The subcortical and periventricular white matter is within normal limits. The basal ganglia are within normal limits. There are no acute changes or space-occupying lesions in the posterior fossa. The visualized portions of the orbits are within normal limits. The globes are intact. The imaged portions of the paranasal sinuses are unremarkable. The calvarium is intact. IMPRESSION: There is no acute intracranial process. Interpreted by: Jerson Mane MD Signed by: Jerson Mane MD 10/23/21 Final result Normal [facility] CT Head WO Contraston 2021 Radiology Study observation (narrative) [facility] Work Phone: There is no acute intracranial process. [facility] RADIOLOGY EXAMINATION: CT HEAD WO CONTRAST, 10/23/2021 1:05 PM CLINICAL HISTORY: head injury COMPARISON: Brain CT from March 30, 2018 TECHNIQUE: Multiple contiguous axial images of the head were obtained from the skull base through the skull vertex without intravenous contrast. Sagittal and coronal 3D reformats have been produced. All CT scans at this facility use dose modulation, iterative reconstruction, and/or weight based dosing when appropriate to reduce radiation dose to as low as reasonably achievable. BRAIN CT FINDINGS: Lopez-white matter differentiation is maintained. No acute hemorrhage, mass, mass effect, or midline shift. There is no evidence of atrophy, ventricular morphology is within normal limits. The subcortical and periventricular white matter is within normal limits. The basal ganglia are within normal limits. There are no acute changes or space-occupying lesions in the posterior fossa. The visualized portions of the orbits are within normal limits. The globes are intact. The imaged portions of the paranasal sinuses are unremarkable. The calvarium is intact. [facility] RADIOLOG[facility] Jerson Mane MD - 10/23/2021 EXAMINATION: CT HEAD WO CONTRAST, 10/23/2021 1:05 PM CLINICAL HISTORY: head injury COMPARISON: Brain CT from March 30, 2018 TECHNIQUE: Multiple contiguous axial images of the head were obtained from the skull base through the skull vertex without intravenous contrast. Sagittal and coronal 3D reformats have been produced. All CT scans at this facility use dose modulation, iterative reconstruction, and/or weight based dosing when appropriate to reduce radiation dose to as low as reasonably achievable. BRAIN CT FINDINGS: Lopez-white matter differentiation is maintained. No acute hemorrhage, mass, mass effect, or midline shift. There is no evidence of atrophy, ventricular morphology is within normal limits. The subcortical and periventricular white matter is within normal limits. The basal ganglia are within normal limits. There are no acute changes or space-occupying lesions in the posterior fossa. The visualized portions of the orbits are within normal limits. The globes are intact. The imaged portions of the paranasal sinuses are unremarkable. The calvarium is intact. IMPRESSION: There is no acute intracranial process. [facility] Work Phone: CT Head WO ContrastOrdered B y: Jerson Mane on 10-23-[address] [facility] Work Phone: CT LUMBAR SPINE WO CONTRASTo n 10-23-2021 CT LUMBAR SPINE WO CONTRAST CT lumbar spine without intravenous contrast medium. HISTORY: Lawnmower falls on patient. TECHNICAL FACTORS: CT lumbar spine obtained and formatted as 2.5 mm contiguous axial images from skull base to the level of. Sagittal and coronal reconstructions were obtained during postprocessing. No contrast medium was utilized. COMPARISON: None FINDINGS: Lumbar vertebral bodies are normal in height and alignment. Mild disc space narrowing T10-11 through T12-L1. Nondisplaced right L2 transverse process fracture (series 10, image 34). Fracture, right L3 transverse process (series 10, image 50). Fracture right L4 transverse process (series 10, image 64). 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 IMPRESSION: Fractures, right L2-L4 transverse processes. Other findings discussed. All CT scans at this facility use dose modulation, iterative reconstruction, and/or weight based dosing when appropriate to reduce radiation dose to as low as reasonably achievable. Interpreted by: David Tarango MD Signed by: David Tarango MD 10/23/21 Final result Normal [facility] Fractures, right L2-L4 transverse processes. Other findings discussed. All CT scans at this facility use dose modulation, iterative reconstruction, and/or weight based dosing when appropriate to reduce radiation dose to as low as reasonably achievable. [facility] RADIOLOGY CT lumbar spine with out intravenous contrast medium. HISTORY: Lawnmower falls on patient. TECHNICAL FACTORS: CT lumbar spine obtained and formatted as 2.5 mm contiguous axial images from skull base to the level of. Sagittal and coronal reconstructions were obtained during postprocessing. No contrast medium was utilized. COMPARISON: None FINDINGS: Lumbar vertebral bodies are normal in height and alignment. Mild disc space narrowing T10-11 through T12-L1. Nondisplaced right L2 transverse process fracture (series 10, image 34). Fracture, right L3 transverse process (series 10, image 50). Fracture right L4 transverse process (series 10, image 64). 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 [facility] RADIOLOG[facility] David Tarango MD - 10/23/2021 CT lumbar spine without intravenous contrast medium. HISTORY: Lawnmower falls on patient. TECHNICAL FACTORS: CT lumbar spine obtained and formatted as 2.5 mm contiguous axial images from skull base to the level of. Sagittal and coronal reconstructions were obtained during postprocessing. No contrast medium was utilized. COMPARISON: None FINDINGS: Lumbar vertebral bodies are normal in height and alignment. Mild disc space narrowing T10-11 through T12-L1. Nondisplaced right L2 transverse process fracture (series 10, image 34). Fracture, right L3 transverse process (series 10, image 50). Fracture right L4 transverse process (series 10, image 64). 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 IMPRESSION: Fractures, right L2-L4 transverse processes. Other findings discussed. All CT scans at this facility use dose modulation, iterative reconstruction, and/or weight based dosing when appropriate to reduce radiation dose to as low as reasonably achievable. [employer] [facility] Work Phone: CT THORACIC SPINE WO CONTRAS Ton 10-23-2021 CT THORACIC SPINE WO CONTRAST CT thoracic spine without intravenous contrast medium. HISTORY: Lawnmower fell on patient. Pain. TECHNICAL FACTORS: CT thoracic spine obtained and formatted as 2.5 mm contiguous axial images from skull base to the level of. Sagittal and coronal reconstructions were obtained during postprocessing. No contrast medium was utilized. COMPARISON: None FINDINGS: Thoracic vertebral bodies are normal in height and alignment Mild diffuse disc space narrowing and anterior osteophyte formation. No fractures, dislocations, bone lesions. Limited imaging right and left lung zones shows dependent subsegmental atelectatic change. 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 IMPRESSION: Alignment maintained. No fracture. Other findings discussed. All CT scans at this facility use dose modulation, iterative reconstruction, and/or weight based dosing when appropriate to reduce radiation dose to as low as reasonably achievable. Interpreted by: David Tarango MD Signed by: David Tarango MD 10/23/21 Final result Normal [facility] Alignment maintained. No fracture. Other findings discussed. All CT scans at this facility use dose modulation, iterative reconstruction, and/or weight based dosing when appropriate to reduce radiation dose to as low as reasonably achievable. [facility] RADIOLOGY CT thoracic spine wi thout intravenous contrast medium. HISTORY: Lawnmower fell on patient. Pain. TECHNICAL FACTORS: CT thoracic spine obtained and formatted as 2.5 mm contiguous axial images from skull base to the level of. Sagittal and coronal reconstructions were obtained during postprocessing. No contrast medium was utilized. COMPARISON: None FINDINGS: Thoracic vertebral bodies are normal in height and alignment Mild diffuse disc space narrowing and anterior osteophyte formation. No fractures, dislocations, bone lesions. Limited imaging right and left lung zones shows dependent subsegmental atelectatic change. 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 [facility] RADIOLOGY SignerDavid MD - 10/23/2021 CT thoracic spine without intravenous contrast medium. HISTORY: Lawnmower fell on patient. Pain. TECHNICAL FACTORS: CT thoracic spine obtained and formatted as 2.5 mm contiguous axial images from skull base to the level of. Sagittal and coronal reconstructions were obtained during postprocessing. No contrast medium was utilized. COMPARISON: None FINDINGS: Thoracic vertebral bodies are normal in height and alignment Mild diffuse disc space narrowing and anterior osteophyte formation. No fractures, dislocations, bone lesions. Limited imaging right and left lung zones shows dependent subsegmental atelectatic change. 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 IMPRESSION: Alignment maintained. No fracture. Other findings discussed. All CT scans at this facility use dose modulation, iterative reconstruction, and/or weight based dosing when appropriate to reduce radiation dose to as low as reasonably achievable. [facility] Work Phone: Comprehensive Metabolic Pane valentino 10-23-2021 Albumin [Mass/Vol] 3.7 g/dL 3.5 - 4.6 g/dL [facility] Albumin [Mass/Vol] 3.7 g/dL Normal 3.5-4.6 [facility] Comment on above: Performed By: #### T ROP #### [facility] [address] [place] [address] ALP (Bld) [Catalytic activity/Vol] 103 U/L 35 - 104 U/L [facility] ALP [Catalytic activity/Vol] 103 U/L Normal 35-104 [facility] Comment on above: Performed By: #### T ROP #### [facility] [address] [place] [address] ALT [Catalytic activity/Vol] 14 U/L 0 - 41 U/L [facility] ALT [Catalytic activity/Vol] 14 U/L Normal 0-41 [facility] Comment on above: Performed By: #### T ROP #### [facility] [address] [place] [address] Anion gap [Moles/Vol] 13 mmol/L [facility] Anion gap [Moles/Vol] 13 mmol/L Normal 9-15 [facility] Comment on above: Performed By: #### T ROP #### [facility] [address] [place] [address] AST [Catalytic activity/Vol] 20 U/L 0 - 40 U/L [facility] AST [Catalytic activity/Vol] 20 U/L Normal 0-40 [facility] Comment on above: Performed By: #### T ROP #### [facility] [address] [place] [address] Bilirubin [Mass/Vol] 0.6 mg/dL 0.2 - 0 .7 mg/dL [facility] Bilirubin [Mass/Vol] 0.6 mg/dL Normal 0.2-0.7 [facility] Comment on above: Performed By: #### T ROP #### [facility] [address] [place] [address] Calcium [Mass/Vol] 8.5 mg/dL 8.5 - 9.9 mg/dL [facility] Calcium [Mass/Vol] 8.5 mg/dL Normal 8.5-9.9 [facility] Comment on above: Performed By: #### T ROP #### [facility] [address] [place] [address] Chloride [Moles/Vol] 107 mmol/L [facility] Chloride [Moles/Vol] 107 mmol/L Normal 95-107 [facility] Comment on above: Performed By: #### T ROP #### [facility] [address] [place] [address] CO2 [Moles/Vol] 21 mmol/L [facility] CO2 [Moles/Vol] 21 mmol/L Normal 20-31 [facility] Comment on above: Performed By: #### T ROP #### [facility] [address] [place] [address] Creatinine [Mass/Vol] 0.71 mg/dL 0.70 - 1.20 mg/dL [facility] Creatinine [Mass/Vol] 0.71 mg/dL Normal 0.70-1.20 [facility] Comment on above: Performed By: #### T ROP #### [facility] [address] [place] [address] Free PSA/Total PSA [Mass fraction] 6.2 g/dL Low 6.3 - 8.0 g/dL [facility] GFR >60.0 Normal >60 [facility] Comment on above: Result Comment: >60 mL/min/1.73m2 EGFR, calc. for ages 18 and older using the MDRD formula (not corrected for weight), is valid for stable renal function. Performed By: #### T ROP #### [facility] [address] [place] [address] GFR >60.0 >60 [facility] Comment on above: >60 mL/min/1.73m2 EG FR, calc. for ages 18 and older using the MDRD formula (not corrected for weight), is valid for stable renal function. GFR Non- >60.0 >60 [facility] Comment on above: >60 mL/min/1.73m2 EG FR, calc. for ages 18 and older using the MDRD formula (not corrected for weight), is valid for stable renal function. GFR/1.73 sq M.predicted among blacks MDRD (S/P/Bld) [Vol rate/Area] mL/min/{1.73_m2} Normal >60 [facility] Comment on above: Result Comment: >60 mL/min/1.73m2 EGFR, calc. for ages 18 and older using the MDRD formula (not corrected for weight), is valid for stable renal function. Performed By: #### T ROP #### [facility] [address] [place] [address] Globulin (S) [Mass/Vol] 2.5 g/dL 2.3 - 3.5 g/dL [facility] Globulin (S) [Mass/Vol] 2.5 g/dL Normal 2.3-3.5 [facility] Comment on above: Performed By: #### T ROP #### [facility] [address] [place] [address] Glucose [Mass/Vol] 104 mg/dL High 70 - 99 mg/dL [facility] Glucose [Mass/Vol] 104 mg/dL Critically high 70-99 [facility] Comment on above: Performed By: #### T ROP #### [facility] [address] [place] [address] Potassium [Moles/Vol] 3.9 mmol/L [facility] Potassium [Moles/Vol] 3.9 mmol/L Normal 3.4-4.9 [facility] Comment on above: Performed By: #### T ROP #### [facility] [address] [place] [address] Protein [Mass/Vol] 6.2 g/dL Low 6.3-8.0 [facility] Comment on above: Performed By: #### T ROP #### [facility] [address] [place] [address] Sodium [Moles/Vol] 141 mmol/L [facility] Sodium [Moles/Vol] 141 mmol/L Normal 135-144 [facility] Comment on above: Performed By: #### T ROP #### [facility] [address] [place] [address] Urea nitrogen (BldV) [Mass/Vol] 7 mg/dL 6 - 20 mg/dL [facility] Urea nitrogen [Mass/Vol] 7 mg/dL Normal 6-20 [facility] Comment on above: Performed By: #### T ROP #### [facility] [address] [place] [address] Ethanolon 10-23-2021 Ethanol Lvl <10 mg/dL [facility] Ethanol percent Not indicated G/dL [facility] Lipaseon 10-23-2021 Lipase [Catalytic activity/Vol] 27 U/L 12 - 95 U/L [facility] Lipase [Catalytic activity/Vol] 27 U/L Normal 12-95 [facility] Comment on above: Performed By: #### C XWAN #### [facility] [address] [place] [address] No Panel Informationon 10-23 Interpretation and review of laboratory results Abnormal [facility] Radiology Study observation (narrative) [facility] Work Phone: [facility] Impression: 1. Fracture right transverse processes of L2, L3 and L4 vertebrae without adjacent hematomas. 2. Otherwise, no organ injuries or hematomas are seen in chest, abdomen or pelvis. [facility] RADIOLOG[facility] Indication: Trauma. Comparison: CT chest of 02/24/[address] abdomen of 12/08/2018. Procedure: Scans were made from the thoracic inlet through the symphysis pubis. No oral contrast was given prior to scanning. 100 mL Isovue-370 Intravenous contrast was given during scanning. Chest Findings: Extrathoracic: No chest wall hematomas. No axillary adenopathy. No subcutaneous nodules are seen. Pleura: No pleural effusion or pneumothorax. No pleural calcifications. Lungs: No lung injuries are seen. Minimum bibasilar dependent atelectasis. No acute consolidation. Patent major airways. No bronchiectasis. Mediastinum/Pati: No mediastinal hematomas. No adenopathy or masses Heart/Vessels: No vascular injuries are seen. No evidence of aortic aneurysm. No pericardial effusion. Other: No aggressive osseous lesions are seen. No new fractures are seen. Abdomen Findings: Liver/Biliary System: No liver injuries are seen. No liver masses. No intra or extrahepatic biliary dilatation. No gallstones or cholecystitis. Pancreas/Spleen: No pancreatic injuries are seen. No pancreatic masses. Pancreatic duct is not dilated. No splenic injuries are seen. No splenic masses. No splenomegaly. Kidneys/Adrenals: No renal injuries are seen. No renal stones or hydronephrosis. Normal symmetrical nephrograms. No renal or adrenal masses. Aorta/Vessels: No vascular injuries are seen. Patent IVC, renal veins and portal venous system. Bowel/Fluid/Nodes: No bowel injuries are seen. Couple of small bowel transient intussusceptions, of doubtful significance. No intra-abdominal hematomas. No abdominal wall hematomas. No ascites or fluid collections. No adenopathy. Other: Fracture right transverse processes of L2, L3 and L4 vertebrae without adjacent hematomas. No aggressive osseous lesions are seen. Pelvis Findings: No pelvic hematomas. No pelvic masses or adenopathy. Bladder, seminal vesicles and prostate grossly unremarkable. Mild sigmoid diverticulosis with no evidence of diverticulitis. Other: No fractures. No aggressive osseous lesions are seen. [facility] RADIOLOGY Zamzam Resendez MD - 10/23/2021 Indication: Trauma. Comparison: CT chest of 02/24/[address] abdomen of 12/08/2018. Procedure: Scans were made from the thoracic inlet through the symphysis pubis. No oral contrast was given prior to scanning. 100 mL Isovue-370 Intravenous contrast was given during scanning. Chest Findings: Extrathoracic: No chest wall hematomas. No axillary adenopathy. No subcutaneous nodules are seen. Pleura: No pleural effusion or pneumothorax. No pleural calcifications. Lungs: No lung injuries are seen. Minimum bibasilar dependent atelectasis. No acute consolidation. Patent major airways. No bronchiectasis. Mediastinum/Pati: No mediastinal hematomas. No adenopathy or masses Heart/Vessels: No vascular injuries are seen. No evidence of aortic aneurysm. No pericardial effusion. Other: No aggressive osseous lesions are seen. No new fractures are seen. Abdomen Findings: Liver/Biliary System: No liver injuries are seen. No liver masses. No intra or extrahepatic biliary dilatation. No gallstones or cholecystitis. Pancreas/Spleen: No pancreatic injuries are seen. No pancreatic masses. Pancreatic duct is not dilated. No splenic injuries are seen. No splenic masses. No splenomegaly. Kidneys/Adrenals: No renal injuries are seen. No renal stones or hydronephrosis. Normal symmetrical nephrograms. No renal or adrenal masses. Aorta/Vessels: No vascular injuries are seen. Patent IVC, renal veins and portal venous system. Bowel/Fluid/Nodes: No bowel injuries are seen. Couple of small bowel transient intussusceptions, of doubtful significance. No intra-abdominal hematomas. No abdominal wall hematomas. No ascites or fluid collections. No adenopathy. Other: Fracture right transverse processes of L2, L3 and L4 vertebrae without adjacent hematomas. No aggressive osseous lesions are seen. Pelvis Findings: No pelvic hematomas. No pelvic masses or adenopathy. Bladder, seminal vesicles and prostate grossly unremarkable. Mild sigmoid diverticulosis with no evidence of diverticulitis. Other: No fractures. No aggressive osseous lesions are seen. IMPRESSION: Impression: 1. Fracture right transverse processes of L2, L3 and L4 vertebrae without adjacent hematomas. 2. Otherwise, no organ injuries or hematomas are seen in chest, abdomen or pelvis. [facility] Work Phone: [facility] Work Phone: Prothrombin Timeon 2 INR Coag (PPP) [Relative time] 1.0 {INR} Normal [facility] Comment on above: Performed By: #### T ROP #### [facility] [address] [place] [address] PT Coag (PPP) [Time] 12.8 s Normal 12.3-14.9 [facility] Comment on above: Performed By: #### T ROP #### [facility] [address] [place] [address] Protime-INRon 10-23-2021 INR Coag (Bld) [Relative time] 1.0 {INR} [facility] PT Coag (PPP) [Time] 12.8 s [facility] Troponinon 10-23-2021 Troponin I.cardiac [Mass/Vol] ng/mL 0.000 - 0.010 ng/mL [facility] Comment on above: Methodology by Ambrosio Thorne. Troponin I.cardiac [Mass/Vol] ng/mL Normal 0.000-0.01 [facility] Comment on above: Result Comment: Meth odology by Troponin T. Performed By: #### T ROP #### [facility] [address] [place] [address] CNPNon 10-10-2021 CNPN Telephone (NIQ) ELIJAH WYLIE JR. ([id number]) 1975 M Date Time Provider Department 10/10/21 UNKNOWN NIQ During your visit today, we recorded the following information about you: Paty Castorena 10/10/2021 12:40 PM Signed OSH NI referral from Shanthi Martinez PA-C, [facility], [place], [place] DX: PTSD, depression, anxiety RFV: psychiatry for eval and treatment Scheduling: Department no longer accepting external referrals. Unable to schedule at this time. RP's office was informed. Allergies As of Date: 10/10/2021 Noted Allergy Reaction CECLOR (CEFACLOR) 04/13/2011 4 - Hives 9 - Itching 10 - Anaphylaxis Comments: Early 20s Patient tolerated piperacillin 07/2017 SULFA (SULFONAMIDE ANTIBIOTICS) 01/27/2013 2 - Rash BACTRIM (SULFAMETHOXAZOLE-TRIMETH*01/2018 14 - Other: See Comments Comments: Skin sloughing NSAIDS (NON-STEROIDAL ANTI-INFLAM*01/23/2014 14 - Other: See Comments Comments: Due to hx of gastric bipass Date Reviewed: 05/24/2019 Reviewed by: Mely (Rn) YOLI Whittington - Fully Assessed Reason for Visit: Received Outside Medical Records [[id number]] Cmt: External referral to Psychiatry Prescriptions as of 10/10/2021 - predniSONE (DELTASONE) 20 mg tablet Take 1 tablet by mouth twice daily. - guaiFENesin-dextromethorphan (ROBITUSSIN DM) 100-10 mg/5 mL syrup Take 5 mL by mouth three times daily as needed. - pantoprazole DR (PROTONIX) 40 mg tablet Take 1 tablet by mouth twice daily. - scopolamine (TRANSDERM-SCOP) 1 mg over 3 days Apply 1 Patch as directed every 72 hours. - nicotine (NICODERM) 21 mg/24 hr Apply 1 Patch as directed once daily. - ALPRAZolam (XANAX) 1 mg tablet 0.5 mg at bedtime as needed. - traZODone (DESYREL) 50 mg tablet Take 50 mg by mouth daily at bedtime. - cyclobenzaprine (FLEXERIL) 10 mg tablet Take 1 tablet by mouth every 8 hours as needed for Muscle Spasm. - diazepam (VALIUM) 5 mg tablet Take 1 tablet by mouth every 8 hours as needed (muscle spasms). - CALCIUM CITRATE, BULK, MISC - MULTIVIT ANDMINERALS/FERROUS FUM (MULTI VITAMIN ORAL) Take by mouth. - Ascorbic Acid (VITAMIN C) 1,000 mg tablet Take 1,000 mg by mouth once daily. 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/25/2012 Dietary surveillance and counseling [Z71.3] 05/25/2012 Overweight [E66.3] 05/25/2012 Displacement of lumbar intervertebral disc with*01/23/2014 Peptic ulcer [K27.9] 08/05/2017 Perforated duodenal bulb ulcer (HCC) [K26.5] 08/05/2017 UGI bleed [K92.2] 08/23/2017 Epigastric abdominal pain [R10.13] 02/07/2018 Abdominal pain [R10.9] 07/19/2018 Encounter Status:Closed by PATY CASTORENA on 10/10/21 Normal [facility] XR HAND RIGHT (MIN 3 VIEWS)o n 09-23-2021 XR HAND RIGHT (MIN 3 VIEWS) COMPARISON: April 14, 2019 and November 08, 2016 HISTORY: blunt trauma PATIENT NAME: ELIJAH WYLIE: TECHNIQUE: XR HAND RIGHT (MIN 3 VIEWS) FINDINGS: A portion of the distal aspect of the middle phalanx of the third digit is absent and also the distal phalanx is absent. No acute fracture is visualized. IMPRESSION: No acute fracture seen. 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 Interpreted by: Kristen Henry DO Signed by: Kristen Henry DO 09/23/21 Final result Normal [facility] CBC With Platelet and Differ entialon 09-08-2021 Abs Imm Granulocytes 0.0 K/uL Normal [facility] Comment on above: Performed By: #### T ROP #### [facility] [address] [place] [address] Basophils (Bld) [#/Vol] 0.1 10*3/uL Normal 0.0-0.1 [facility] Comment on above: Performed By: #### T ROP #### [facility] [address] [place] [address] Basophils/100 WBC (Bld) 1.3 % Critically high 0.2-1.2 [facility] Comment on above: Performed By: #### T ROP #### [facility] [address] [place] [address] Eosinophils (Bld) [#/Vol] 0.4 10*3/uL Normal 0.0-0.5 [facility] Comment on above: Performed By: #### T ROP #### [facility] [address] [place] [address] Eosinophils/100 WBC (Bld) 4.7 % Normal 0.8-7.0 [facility] Comment on above: Performed By: #### T ROP #### [facility] [address] [place] [address] Erythrocyte distribution width (RBC) [Ratio] 14.0 % Normal 11.6-14.4 [facility] Comment on above: Performed By: #### T ROP #### [facility] [address] [place] [address] Hematocrit (Bld) [Volume fraction] 47.7 % Normal 42.0-52.0 [facility] Comment on above: Performed By: #### T ROP #### [facility] [address] [place] [address] Hemoglobin (Bld) [Mass/Vol] 16.3 g/dL Normal 13.7-17.5 [facility] Comment on above: Performed By: #### T ROP #### [facility] [address] [place] [address] Imm Granulocytes 0.3 % Normal [facility] Comment on above: Performed By: #### T ROP #### [facility] [address] [place] [address] Lymphocytes (Bld) [#/Vol] 2.3 10*3/uL Normal 1.3-3.6 [facility] Comment on above: Performed By: #### T ROP #### [facility] [address] [place] [address] Lymphocytes/100 WBC (Bld) 24.4 % Normal [facility] Comment on above: Performed By: #### T ROP #### [facility] [address] [place] [address] MCH (RBC) [Entitic mass] 32.1 pg Normal 25.7-32.2 [facility] Comment on above: Performed By: #### T ROP #### [facility] [address] [place] [address] MCHC 34.2 % Normal 32.3-36.5 [facility] Comment on above: Performed By: #### T ROP #### [facility] [address] [place] [address] MCV (RBC) [Entitic vol] 93.9 fL Critically high 79.0-92.2 [facility] Comment on above: Performed By: #### T ROP #### [facility] [address] [place] [address] Monocytes (Bld) [#/Vol] 0.7 10*3/uL Normal 0.3-0.8 [facility] Comment on above: Performed By: #### T ROP #### [facility] [address] [place] [address] Monocytes/100 WBC (Bld) 7.4 % Normal 5.3-12.2 [facility] Comment on above: Performed By: #### T ROP #### [facility] [address] [place] [address] Neutrophils (Bld) [#/Vol] 5.7 10*3/uL Critically high 1.8-5.4 [facility] Comment on above: Performed By: #### T ROP #### [facility] [address] [place] [address] Neutrophils/100 WBC (Bld) 61.9 % Normal 34.0-67.9 [facility] Comment on above: Performed By: #### T ROP #### [facility] [address] [place] [address] Platelets (Bld) [#/Vol] 217 10*3/uL Normal 163-337 [facility] Comment on above: Performed By: #### T ROP #### [facility] [address] [place] [address] RBC (Bld) [#/Vol] 5.08 10*6/uL Normal 4.63-6.08 [facility] Comment on above: Performed By: #### T ROP #### [facility] [address] [place] [address] WBC (Bld) [#/Vol] 9.2 10*3/uL Critically high 4.2-9.0 [facility] Comment on above: Performed By: #### T ROP #### [facility] [address] [place] [address] CBC with Auto Differentialon 09-08-2021 Basophils (Bld) [#/Vol] 0.1 10*3/uL 0.0 - 0.1 K/uL [facility] Basophils/100 WBC (Bld) 1.3 % High 0.2 - 1.2 % [facility] Eosinophils (Bld) [#/Vol] 0.4 10*3/uL 0.0 - 0.5 K/uL [facility] Eosinophils/100 WBC (Bld) 4.7 % 0.8 - 7.0 % [facility] Hematocrit (Bld) [Volume fraction] 47.7 % 42.0 - 52.0 % [facility] Hemoglobin.gastrointe stinal spec 1 Ql (Stl) 16.3 g/dL 13.7 - 17.5 g/dL [facility] Immature granulocytes (Bld) [#/Vol] 0.0 10*3/uL [facility] Immature granulocytes/100 WBC (Bld) 0.3 % [facility] Lymphocytes (Bld) [#/Vol] 2.3 10*3/uL 1.3 - 3.6 K/uL [facility] Lymphocytes/100 WBC (Bld) 24.4 % [facility] MCH (RBC) [Entitic mass] 32.1 pg 25.7 - 32.2 pg [facility] MCHC (RBC) [Mass/Vol] 34.2 % 32.3 - 36.5 % [facility] MCV (RBC) [Entitic vol] 93.9 fL High 79.0 - 92.2 fL [facility] Monocytes (Bld) [#/Vol] 0.7 10*3/uL 0.3 - 0.8 K/uL [facility] Monocytes/100 WBC (Bld) 7.4 % 5.3 - 12.2 % [facility] Neutrophils Absolute 5.7 K/uL High 1.8 - 5 .4 K/uL [facility] Neutrophils/100 WBC (Bld) 61.9 % 34.0 - 67.9 % [facility] Platelet distribution width (Bld) [Ratio] 14.0 % 11.6 - 14.4 % [facility] Platelets (Bld) [#/Vol] 217 10*3/uL 163 - 337 K/uL [facility] RBC (Bld) [#/Vol] 5.08 10*6/uL [facility] WBC (Bld) [#/Vol] 9.2 10*3/uL High 4.2 - 9.0 K/uL [facility] Comprehensive Metabolic Pane valentino 09-08-2021 Albumin [Mass/Vol] 4.4 g/dL 3.5 - 4.6 g/dL [facility] Albumin [Mass/Vol] 4.4 g/dL Normal 3.5-4.6 [facility] Comment on above: Performed By: #### C MP #### [facility] [address] [place] [address] ALP (Bld) [Catalytic activity/Vol] 133 U/L High 35 - 104 U/L [facility] ALP [Catalytic activity/Vol] 133 U/L Critically high 35-104 [facility] Comment on above: Performed By: #### C MP #### [facility] [address] [place] [address] ALT [Catalytic activity/Vol] 17 U/L 0 - 41 U/L [facility] ALT [Catalytic activity/Vol] 17 U/L Normal 0-41 [facility] Comment on above: Performed By: #### C MP #### [facility] [address] [place] [address] Anion gap [Moles/Vol] 13 mmol/L [facility] Anion gap [Moles/Vol] 13 mmol/L Normal 9-15 [facility] Comment on above: Performed By: #### C MP #### [facility] [address] [place] [address] AST [Catalytic activity/Vol] 26 U/L 0 - 40 U/L [facility] Comment on above: Specimen hemolysis h as exceeded the interference as defined by Yuliya. Value may be falsely increased. Suggest recollection if clinically indicated. AST [Catalytic activity/Vol] 26 U/L Normal 0-40 [facility] Comment on above: Result Comment: Spec imen hemolysis has exceeded the interference as defined by Yuliya. Value may be falsely increased. Suggest recollection if clinically indicated. Performed By: #### C MP #### [facility] [address] [address] Bilirubin [Mass/Vol] 1.0 mg/dL High 0.2 - 0 .7 mg/dL [facility] Bilirubin [Mass/Vol] 1.0 mg/dL Critically high 0.2-0.7 [facility] Comment on above: Performed By: #### C MP #### [facility] [address] [place] [address] Calcium [Mass/Vol] 9.3 mg/dL 8.5 - 9.9 mg/dL [facility] Calcium [Mass/Vol] 9.3 mg/dL Normal 8.5-9.9 [facility] Comment on above: Performed By: #### C MP #### [facility] [address] [place] [address] Chloride [Moles/Vol] 101 mmol/L [facility] Chloride [Moles/Vol] 101 mmol/L Normal 95-107 [facility] Comment on above: Performed By: #### C MP #### [facility] [address] [place] [address] CO2 [Moles/Vol] 25 mmol/L [facility] CO2 [Moles/Vol] 25 mmol/L Normal 20-31 [facility] Comment on above: Performed By: #### C MP #### [facility] [address] [facility] [address] Creatinine [Mass/Vol] 0.58 mg/dL Low 0.70 - 1.20 mg/dL [facility] Creatinine [Mass/Vol] 0.58 mg/dL Low 0.70-1.20 [facility] Comment on above: Performed By: #### C MP #### [facility] [address] [facility] [address] Free PSA/Total PSA [Mass fraction] 7.7 g/dL 6.3 - 8.0 g/dL [facility] GFR >60.0 Normal >60 [facility] Comment on above: Result Comment: >60 mL/min/1.73m2 EGFR, calc. for ages 18 and older using the MDRD formula (not corrected for weight), is valid for stable renal function. Performed By: #### C MP #### [facility] [address] [facility] [address] GFR >60.0 >60 [facility] Comment on above: >60 mL/min/1.73m2 EG FR, calc. for ages 18 and older using the MDRD formula (not corrected for weight), is valid for stable renal function. GFR Non- >60.0 >60 [facility] Comment on above: >60 mL/min/1.73m2 EG FR, calc. for ages 18 and older using the MDRD formula (not corrected for weight), is valid for stable renal function. GFR/1.73 sq M.predicted among blacks MDRD (S/P/Bld) [Vol rate/Area] mL/min/{1.73_m2} Normal >60 [facility] Comment on above: Result Comment: >60 mL/min/1.73m2 EGFR, calc. for ages 18 and older using the MDRD formula (not corrected for weight), is valid for stable renal function. Performed By: #### C MP #### [facility] [address] [facility] [place] [address] Globulin (S) [Mass/Vol] 3.3 g/dL 2.3 - 3.5 g/dL [facility] Globulin (S) [Mass/Vol] 3.3 g/dL Normal 2.3-3.5 [facility] Comment on above: Performed By: #### C MP #### [facility] [address] [place] [address] Glucose [Mass/Vol] 135 mg/dL High 70 - 99 mg/dL [facility] Glucose [Mass/Vol] 135 mg/dL Critically high 70-99 [facility] Comment on above: Performed By: #### C MP #### [facility] [address] [place] [address] Potassium [Moles/Vol] 4.1 mmol/L [facility] Potassium [Moles/Vol] 4.1 mmol/L Normal 3.4-4.9 [facility] Comment on above: Performed By: #### C MP #### [facility] [address] [place] [address] Protein [Mass/Vol] 7.7 g/dL Normal 6.3-8.0 [facility] Comment on above: Performed By: #### C MP #### [facility] [address] [facility] [place] [address] Sodium [Moles/Vol] 139 mmol/L [facility] Sodium [Moles/Vol] 139 mmol/L Normal 135-144 [facility] Comment on above: Performed By: #### C MP #### [facility] [address] [place] [address] Urea nitrogen (BldV) [Mass/Vol] 7 mg/dL 6 - 20 mg/dL [facility] Urea nitrogen [Mass/Vol] 7 mg/dL Normal 6-20 [facility] Comment on above: Performed By: #### C MP #### [facility] [address] [place] [address] No Panel Informationon 09-08 Interpretation and review of laboratory results Abnormal [facility] Troponinon 09-08-2021 Troponin I.cardiac [Mass/Vol] ng/mL 0.000 - 0.010 ng/mL [facility] Comment on above: Methodology by Tropo florentin T. Troponin I.cardiac [Mass/Vol] ng/mL Normal 0.000-0.01 [facility] Comment on above: Result Comment: Meth odology by Troponin T. Performed By: #### T ROP #### [facility] [address] [place] [address] XR CHEST PORTABLEon 09-09-19 22 Radiology Study observation (narrative) [facility] Work Phone: XR CHEST PORTABLE EXAMINATION: CHEST P ORTABLE VIEW CLINICAL HISTORY: Midsternal chest pain COMPARISONS: May 14, 2021 2240 hours FINDINGS: 2 views of the chest is submitted. The cardiac silhouette is of normal size configuration. Pulmonary vascular unremarkable. Right sided trachea. No focal infiltrates. No Pneumothoraces. IMPRESSION: NO ACUTE ACTIVE CARDIOPULMONARY PROCESS Interpreted by: Jd Littlejohn MD Signed by: Jd Littlejohn MD 09/08/21 Final result Normal [facility] NO ACUTE ACTIVE CARDIOPULMONARY PROCESS [facility] RADIOLOGY EXAMINATION: CHEST P ORTABLE VIEW CLINICAL HISTORY: Midsternal chest pain COMPARISONS: May 14, 2021 2240 hours FINDINGS: 2 views of the chest is submitted. The cardiac silhouette is of normal size configuration. Pulmonary vascular unremarkable. Right sided trachea. No focal infiltrates. No Pneumothoraces. [facility] RADIOLOGY Jd Littlejohn MD - 09/08/2021 EXAMINATION: CHEST PORTABLE VIEW CLINICAL HISTORY: Midsternal chest pain COMPARISONS: May 14, 2021 2240 hours FINDINGS: 2 views of the chest is submitted. The cardiac silhouette is of normal size configuration. Pulmonary vascular unremarkable. Right sided trachea. No focal infiltrates. No Pneumothoraces. IMPRESSION: NO ACUTE ACTIVE CARDIOPULMONARY PROCESS [facility] Work Phone: XR CHEST PORTABLEOrdered By: Jd Littlejohn on 09-08-2021 [facility] Phone: Bacterial susceptibility montero el by [facility] 06-19-2021 Bacterial susceptibility panel ARGENIS (Isol) ORDER#: [id number] ORDERED BY: KARUNA SHIN SOURCE: Abscess COLLECTED: 06/19/21 13:58 ANTIBIOTICS AT DELISA.: RECEIVED : 06/19/21 15:07 Gram Stain Direct FINAL 06/20/21 09:51 Moderate WBC's No epithelial cells Few Gram positive cocci in clusters-resembling Staph Rare Gram negative rods Culture, Wound Aerobic FINAL 06/22/21 10:22 Light growth Staphylococcus epidermidis S. epi ANTIBIOTICS ARGENIS Interp Cefazolin R Ceftriaxone R Clindamycin >=4 R Gentamicin <=0.5 S Oxacillin <=0.25 R Vancomycin 1 S S=SUSCEPTIBLE I=INTERMEDIATE R=RESISTANT Culture, Anaerobic FINAL 06/22/21 10:26 Moderate growth Anaerobic gram positive cocci Sensitivities not routinely done. Drugs of choice are: Penicillin G, Metronidazole, Clindamycin or Piperacillin/Tazobactam. Light growth Bacteroides species Beta lactamase negative. Sensitivities not routinely done. Drugs of choice: Penicillin G, Clindamycin or Metronidazole. [facility] Comment on above: Performed By: #### T ROP #### [facility] [address] [facility] [address] Culture, Wound Aerobic, Anae robic, and Gram Stainon 06-19-2021 Culture, Wound Aerobic, Anaerobic, and Gram Stain ORDER#: [id number] ORDERED BY: KARUNA SHIN SOURCE: Abscess COLLECTED: 06/19/21 13:58 ANTIBIOTICS AT DELISA.: RECEIVED : 06/19/21 15:07 Gram Stain Direct FINAL 06/20/21 09:51 Moderate WBC's No epithelial cells Few Gram positive cocci in clusters-resembling Staph Rare Gram negative rods Culture, Wound Aerobic INTERIM 06/21/21 11:31 Light growth Staphylococcus species ID and sensitivity to follow Culture, Anaerobic PRELIM 06/21/21 11:31 Culture in progress [facility] Comment on above: Performed By: #### C XWAN #### [facility] [address] [facility] [address] US SCROTUM AND TESTICLESon 0 06-18-2021 Radiology Study observation (narrative) [facility] Work Phone: US SCROTUM AND TESTICLES EXAMINATION: SCROTAL ULTRASOUND WITH DOPPLER IMAGING HISTORY: Painful left scrotal lump for 2 days. TECHNIQUE: Sonography of the scrotal contents with color flow and spectral Doppler imaging of the testicular vasculature was performed. Images were obtained and stored in a permanent archive. COMPARISON: None RESULT: RIGHT TESTIS: Size: 3.6 x 3.2 x 1.8 cm Parenchyma: Homogeneous with no calcifications or mass. Epididymis: Normal Vascularity: Normal intratesticular arterial and venous flow with normal spectral waveforms. LEFT TESTIS: Size: 2.4 x 3.5 x 1.7 cm Parenchyma: Homogeneous with no calcifications or mass. Epididymis: Normal Vascularity: Normal intratesticular arterial and venous flow with normal spectral waveforms. HYDROCELE: none VARICOCELE: none Other: At the area of lump within the left scrotal lateral wall there is a hypoechoic lesion measuring approximately 1.4 x 1.8 x 2.0 cm, with surrounding increased vascularity, likely representing abscess. IMPRESSION: Likely abscess within the left scrotal wall at the area of lump measuring around 2.0 cm. Otherwise unremarkable sonographic appearance of the scrotal contents, with normal arterial and venous flow to both testes. Interpreted by: Ramin Conteh MD Signed by: Ramin Conteh MD 06/18/21 Final result Normal [facility] Likely abscess within the left scrotal wall at the area of lump measuring around 2.0 cm. Otherwise unremarkable sonographic appearance of the scrotal contents, with normal arterial and venous flow to both testes. [facility] RADIOLOGY EXAMINATION: SCROTAL ULTRASOUND WITH DOPPLER IMAGING HISTORY: Painful left scrotal lump for 2 days. TECHNIQUE: Sonography of the scrotal contents with color flow and spectral Doppler imaging of the testicular vasculature was performed. Images were obtained and stored in a permanent archive. COMPARISON: None RESULT: RIGHT TESTIS: Size: 3.6 x 3.2 x 1.8 cm Parenchyma: Homogeneous with no calcifications or mass. Epididymis: Normal Vascularity: Normal intratesticular arterial and venous flow with normal spectral waveforms. LEFT TESTIS: Size: 2.4 x 3.5 x 1.7 cm Parenchyma: Homogeneous with no calcifications or mass. Epididymis: Normal Vascularity: Normal intratesticular arterial and venous flow with normal spectral waveforms. HYDROCELE: none VARICOCELE: none Other: At the area of lump within the left scrotal lateral wall there is a hypoechoic lesion measuring approximately 1.4 x 1.8 x 2.0 cm, with surrounding increased vascularity, likely representing abscess. [facility] RADIOLOGY Ramin Conteh M D - 06/18/2021 EXAMINATION: SCROTAL ULTRASOUND WITH DOPPLER IMAGING HISTORY: Painful left scrotal lump for 2 days. TECHNIQUE: Sonography of the scrotal contents with color flow and spectral Doppler imaging of the testicular vasculature was performed. Images were obtained and stored in a permanent archive. COMPARISON: None RESULT: RIGHT TESTIS: Size: 3.6 x 3.2 x 1.8 cm Parenchyma: Homogeneous with no calcifications or mass. Epididymis: Normal Vascularity: Normal intratesticular arterial and venous flow with normal spectral waveforms. LEFT TESTIS: Size: 2.4 x 3.5 x 1.7 cm Parenchyma: Homogeneous with no calcifications or mass. Epididymis: Normal Vascularity: Normal intratesticular arterial and venous flow with normal spectral waveforms. HYDROCELE: none VARICOCELE: none Other: At the area of lump within the left scrotal lateral wall there is a hypoechoic lesion measuring approximately 1.4 x 1.8 x 2.0 cm, with surrounding increased vascularity, likely representing abscess. IMPRESSION: Likely abscess within the left scrotal wall at the area of lump measuring around 2.0 cm. Otherwise unremarkable sonographic appearance of the scrotal contents, with normal arterial and venous flow to both testes. [employer] Phone: US SCROTUM AND TESTICLESOrde red By: Ramin Conteh on 06-18-2021 [facility] Phone: CBC With Platelet and Differ entialon 05-15-2021 Abs Imm Granulocytes 0.1 K/uL Normal [facility] Comment on above: Performed By: #### C BCWD #### [facility] [address] [facility] [address] Basophils (Bld) [#/Vol] 0.2 10*3/uL Critically high 0.0-0.1 [facility] Comment on above: Performed By: #### C BCWD #### [facility] [address] [place] [address] Basophils/100 WBC (Bld) 1.0 % Normal 0.2-1.2 [facility] Comment on above: Performed By: #### C BCWD #### [facility] [address] [place] [address] Eosinophils (Bld) [#/Vol] 0.6 10*3/uL Critically high 0.0-0.5 [facility] Comment on above: Performed By: #### C BCWD #### [facility] [address] [place] [address] Eosinophils/100 WBC (Bld) 4.0 % Normal 0.8-7.0 [facility] Comment on above: Performed By: #### C BCWD #### [facility] [address] [place] [address] Erythrocyte distribution width (RBC) [Ratio] 15.9 % Critically high 11.6-14.4 [facility] Comment on above: Performed By: #### C BCWD #### [facility] [address] [place] [address] Hematocrit (Bld) [Volume fraction] 47.2 % Normal 42.0-52.0 [facility] Comment on above: Performed By: #### C BCWD #### [facility] [address] [place] [address] Hemoglobin (Bld) [Mass/Vol] 15.9 g/dL Normal 13.7-17.5 [facility] Comment on above: Performed By: #### C BCWD #### [facility] [address] [place] [address] Imm Granulocytes 0.3 % Normal [facility] Comment on above: Performed By: #### C BCWD #### [facility] [address] [place] [address] Lymphocytes (Bld) [#/Vol] 4.5 10*3/uL Critically high 1.3-3.6 [facility] Comment on above: Performed By: #### C BCWD #### [facility] [address] [place] [address] Lymphocytes/100 WBC (Bld) 30.6 % Normal [facility] Comment on above: Performed By: #### C BCWD #### [facility] [address] [place] [address] MCH (RBC) [Entitic mass] 30.8 pg Normal 25.7-32.2 [facility] Comment on above: Performed By: #### C BCWD #### [facility] [address] [place] [address] MCHC 33.7 % Normal 32.3-36.5 [facility] Comment on above: Performed By: #### C BCWD #### [facility] [address] [place] [address] MCV (RBC) [Entitic vol] 91.5 fL Normal 79.0-92.2 [facility] Comment on above: Performed By: #### C BCWD #### [facility] [address] [place] [address] Monocytes (Bld) [#/Vol] 0.8 10*3/uL Normal 0.3-0.8 [facility] Comment on above: Performed By: #### C BCWD #### [facility] [address] [place] [address] Monocytes/100 WBC (Bld) 5.5 % Normal 5.3-12.2 [facility] Comment on above: Performed By: #### C BCWD #### [facility] [address] [place] [address] Neutrophils (Bld) [#/Vol] 8.6 10*3/uL Critically high 1.8-5.4 [facility] Comment on above: Performed By: #### C BCWD #### [facility] [address] [place] [address] Neutrophils/100 WBC (Bld) 58.6 % Normal 34.0-67.9 [facility] Comment on above: Performed By: #### C BCWD #### [facility] [address] [place] [address] Platelets (Bld) [#/Vol] 227 10*3/uL Normal 163-337 [facility] Comment on above: Performed By: #### C BCWD #### [facility] [address] [place] [address] RBC (Bld) [#/Vol] 5.16 10*6/uL Normal 4.63-6.08 [facility] Comment on above: Performed By: #### C BCWD #### [facility] [address] [facility] [address] WBC (Bld) [#/Vol] 14.6 10*3/uL Critically high 4.2-9.0 [facility] Comment on above: Performed By: #### C BCWD #### [facility] [address] [facility] [address] COVID-19on 05-15-2021 SARS-CoV-2 (COVID-19) RNA SHANICE+probe Ql (Unsp spec) Not detected Normal Not Detect [facility] Comment on above: Result Comment: [place]uong[place] d NAAT: Negative results should be treated as presumptive and, if inconsistent with clinical signs and symptoms or necessary for patient management, should be tested with an alternative molecular assay. Negative results do not preclude SARS-CoV-2 infection and should not be used as the sole basis for patient management decisions. This test has been authorized by the FDA under an Emergency Use Authorization (EUA) for use by authorized laboratories. Fact sheet for Healthcare Providers: https://www.fda.gov/media/144564/download Fact sheet for Patients: https://www.fda.gov/media/576520/download METHODOLOGY: Isothermal Nucleic Acid Amplification Performed By: #### T ROP #### [facility] [address] [facility] [address] Comprehensive Metabolic Pane valentino 05-15-2021 Albumin [Mass/Vol] 3.8 g/dL Normal 3.5-4.6 [facility] Comment on above: Performed By: #### C MP #### [facility] [address] [facility] [address] ALP [Catalytic activity/Vol] 110 U/L Critically high 35-104 [facility] Comment on above: Performed By: #### C MP #### [facility] [address] [facility] [address] ALT [Catalytic activity/Vol] 15 U/L Normal 0-41 [facility] Comment on above: Performed By: #### C MP #### [facility] [address] [place] [address] Anion gap [Moles/Vol] 15 mmol/L Normal 9-15 [facility] Comment on above: Performed By: #### C MP #### [facility] [address] [place] [address] AST [Catalytic activity/Vol] 27 U/L Normal 0-40 [facility] Comment on above: Result Comment: Spec imen hemolysis has exceeded the interference as defined by Yuliya. Value may be falsely increased. Suggest recollection if clinically indicated. Performed By: #### C MP #### [facility] [address] [place] [address] Bilirubin [Mass/Vol] 0.4 mg/dL Normal 0.2-0.7 [facility] Comment on above: Performed By: #### C MP #### [facility] [address] [place] [address] Calcium [Mass/Vol] 8.8 mg/dL Normal 8.5-9.9 [facility] Comment on above: Performed By: #### C MP #### [facility] [address] [place] [address] Chloride [Moles/Vol] 105 mmol/L Normal 95-107 [facility] Comment on above: Performed By: #### C MP #### [facility] [address] [place] [address] CO2 [Moles/Vol] 20 mmol/L Normal 20-31 [facility] Comment on above: Performed By: #### C MP #### [facility] [address] [place] [address] Creatinine [Mass/Vol] 0.79 mg/dL Normal 0.70-1.20 [facility] Comment on above: Performed By: #### C MP #### [facility] [address] [place] [address] GFR >60.0 Normal >60 [facility] Comment on above: Result Comment: >60 mL/min/1.73m2 EGFR, calc. for ages 18 and older using the MDRD formula (not corrected for weight), is valid for stable renal function. Performed By: #### C MP #### [facility] [address] [place] [address] GFR/1.73 sq M.predicted among blacks MDRD (S/P/Bld) [Vol rate/Area] mL/min/{1.73_m2} Normal >60 [facility] Comment on above: Result Comment: >60 mL/min/1.73m2 EGFR, calc. for ages 18 and older using the MDRD formula (not corrected for weight), is valid for stable renal function. Performed By: #### C MP #### [facility] [address] [place] [address] Globulin (S) [Mass/Vol] 2.6 g/dL Normal 2.3-3.5 [facility] Comment on above: Performed By: #### C MP #### [facility] [address] [place] [address] Glucose [Mass/Vol] 93 mg/dL Normal 70-99 [facility] Comment on above: Performed By: #### C MP #### [facility] [address] [place] [address] Potassium [Moles/Vol] 4.1 mmol/L Normal 3.4-4.9 [facility] Comment on above: Performed By: #### C MP #### [facility] [address] [place] [address] Protein [Mass/Vol] 6.4 g/dL Normal 6.3-8.0 [facility] Comment on above: Performed By: #### C MP #### [facility] [address] [place] [address] Sodium [Moles/Vol] 140 mmol/L Normal 135-144 [facility] Comment on above: Performed By: #### C MP #### [facility] [address] [place] [address] Urea nitrogen [Mass/Vol] 10 mg/dL Normal 6-20 [facility] Comment on above: Performed By: #### C MP #### [facility] [address] [place] [address] Lipaseon 05-15-2021 Lipase [Catalytic activity/Vol] 32 U/L Normal 12-95 [facility] Comment on above: Performed By: #### L IPAS #### [facility] [address] [place] [address] Troponinon 05-15-2021 Troponin I.cardiac [Mass/Vol] ng/mL Normal 0.000-0.01 [facility] Comment on above: Result Comment: Meth odology by Troponin T. Performed By: #### T ROP ####[facility] [place] [phone] Troponin I.cardiac [Mass/Vol] ng/mL Normal 0.000-0.01 [facility] Comment on above: Result Comment: Meth odology by Troponin T. Performed By: #### T ROP #### [facility] [address] [place] [address] UR Drug Screen Rapidon 05-15 Drug Screen Comment see below Normal [facility] Comment on above: Result Comment: This method is a screening test to detect only these drug classes as part of a medical workup. Confirmatory testing by another method should be ordered if clinically indicated. Performed By: #### C XWAN #### [facility] [address] [place] [address] UR Amphetamines Rapid Screen Negative Normal Negative < [facility] Comment on above: Result Comment: Effe ctive: 11/28/17 Methodology and/or Reference Range-Cutoff has changed. Performed By: #### C XWAN #### [facility] [address] [place] [address] UR Barbiturates Rapid Screen Negative Normal Negative < [facility] Comment on above: Result Comment: Effe ctive: 11/28/17 Methodology and/or Reference Range-Cutoff has changed. Performed By: #### C XWAN #### [facility] [address] [place] [address] UR Benzo Rapid Screen Positive Abnormal Negative < [facility] Comment on above: Result Comment: Effe ctive: 11/28/17 Methodology and/or Reference Range-Cutoff has changed. Performed By: #### C XWAN #### [facility] [address] [place] [address] UR Cannabinoids Rapid Screen Positive Abnormal Negative < [facility] Comment on above: Performed By: #### C XWAN #### [facility] [address] [place] [address] UR Cocaine Rapid Screen Negative Normal Negative < [facility] Comment on above: Result Comment: Effe ctive: 11/28/17 Methodology and/or Reference Range-Cutoff has changed. Performed By: #### C XWAN #### [facility] [address] [place] [address] UR Opiates Rapid Screen Positive Abnormal Negative < [facility] Comment on above: Result Comment: Effe ctive: 11/28/17 Methodology and/or Reference Range-Cutoff has changed. Performed By: #### C XWAN #### [facility] [address] [place] [address] UR PCP Rapid Screen Negative Normal Negative < [facility] Comment on above: Performed By: #### C XWAN #### [facility] [address] [place] [address] XR CHEST PORTABLEon 05-15-20 XR CHEST PORTABLE Exam: XR CHEST PAULINA BLE History: Chest pain Technique: AP portable view of the chest obtained. Comparison: Portable chest radiograph February 19, 2020 Findings: The cardiomediastinal silhouette is within normal limits. No pneumothorax, pleural effusion, or consolidation. No acute osseous abnormality. IMPRESSION: No radiographic evidence of acute intrathoracic process. Interpreted by: Johnie Caballero DO Signed by: Johnie Caballero DO 05/15/21 Final result Normal [facility] APTTOrdered By: Pj faith on 02-24-2021 aPTT Coag (Bld) [Time] 30 s [facility] Phone: Comment on above: Effective 03/19/2020: Heparin Therapeutic Range: 64.0 98.0 seconds. Brain Natriuretic PeptideOrd ered By: Pj Werner on 02-24-2021 Natriuretic peptide B (Bld) [Mass/Vol] 55 pg/mL [employer] Phone: Comment on above: NT-pro BNP ACUTE Int erpretive Guidelines: Age Cutoff for Heart Failure Less than 50 yrs 450 pg/mL 50-75 yrs 900 pg/mL Greater than 75 yrs 1800 pg/mL NT-pro BNP NON-ACUTE Interpretive Guidelines: Age Reference Range Less than 74 yrs 0-125 pg/mL Greater than 74 yrs 0-450 pg/mL Other possible causes of an elevated NT-proBNP include: cardiac ischemia, acute coronary syndrome, COPD, pneumonia, atrial fibrillation, pulmonary emboli, pulmonary hypertension, pericarditis Reference: Nolan Luo et al. NT-proBNP testing for diagnosis and short-term prognosis in acute destabilized HF: an international pooled analysis of 1256 patients. Heart Journal. 2006;27:330-337 CBC Auto DifferentialOrdered By: Pj Werner on 02-24-2021 Basophils (Bld) [#/Vol] 0.1 10*3/uL 0.0 - 0.1 K/uL [facility] Phone: Basophils/100 WBC (Bld) 1.4 % High 0.2 - 1.2 % [employer] Phone: Eosinophils (Bld) [#/Vol] 0.5 10*3/uL 0.0 - 0.5 K/uL [employer] Phone: Eosinophils/100 WBC (Bld) 5.8 % 0.8 - 7.0 % [employer] Phone: Hematocrit (Bld) [Volume fraction] 43.7 % 42.0 - 52.0 % [employer] Phone: Hemoglobin.gastrointe stinal spec 1 Ql (Stl) 14.8 g/dL 13.7 - 17.5 g/dL [employer] Phone: Immature granulocytes (Bld) [#/Vol] 0.0 10*3/uL [employer] Phone: Immature granulocytes/100 WBC (Bld) 0.4 % [employer] Phone: Lymphocytes (Bld) [#/Vol] 2.0 10*3/uL 1.3 - 3.6 K/uL [employer] Phone: Lymphocytes/100 WBC (Bld) 25.8 % [employer] Phone: MCH (RBC) [Entitic mass] 30.3 pg 25.7 - 32.2 pg [employer] Phone: MCHC (RBC) [Mass/Vol] 33.9 % 32.3 - 36.5 % [employer] Phone: MCV (RBC) [Entitic vol] 89.5 fL 79.0 - 92.2 fL [employer] Phone: Monocytes (Bld) [#/Vol] 0.6 10*3/uL 0.3 - 0.8 K/uL [employer] Phone: Monocytes/100 WBC (Bld) 7.1 % 5.3 - 12.2 % [employer] Phone: Neutrophils Absolute 4.7 K/uL 1.8 - 5 .4 K/uL [employer] Phone: Neutrophils/100 WBC (Bld) 59.5 % 34.0 - 67.9 % [employer] Phone: Platelet distribution width (Bld) [Ratio] 14.6 % High 11.6 - 14.4 % [employer] Phone: Platelets (Bld) [#/Vol] 191 10*3/uL 163 - 337 K/uL [employer] Phone: RBC (Bld) [#/Vol] 4.88 10*6/uL [employer] Phone: SLIDE REVIEW see below [employer] Phone: Comment on above: Slide review agrees with reported results WBC (Bld) [#/Vol] 7.8 10*3/uL 4.2 - 9.0 K/uL [employer] Phone: COVID-19, RapidOrdered By: Kiran Werner on 02-24-2021 SARS-CoV-2 (COVID-19) RNA SHANICE+probe Ql (Unsp spec) Not detected Not Detected [facility] Phone: Comment on above: Rapid NAAT: Negative results should be treated as presumptive and, if inconsistent with clinical signs and symptoms or necessary for patient management, should be tested with an alternative molecular assay. Negative results do not preclude SARS-CoV-2 infection and should not be used as the sole basis for patient management decisions. This test has been authorized by the FDA under an Emergency Use Authorization (EUA) for use by authorized laboratories. Fact sheet for Healthcare Providers: https://www.fda.gov/media/222137/download Fact sheet for Patients: https://www.fda.gov/media/080483/download METHODOLOGY: Isothermal Nucleic Acid Amplification [employer] Phone: CTA Chest W WO (PE study)Ord ered By: Pj Werner on 02-24-[address] evidence of pulmonary embolism in the primary or secondary branches of the pulmonary arteries. 2.No acute intrathoracic pathology. Mild to moderate emphysematous changes are seen throughout the lungs. All CT scans at this facility use dose modulation, iterative reconstruction, and/or weight based dosing when appropriate to reduce radiation dose to as low as reasonably achievable. [employer] Phone: HISTORY: ELIJAH TEJEDA is a Male of 45 years age. Evaluate for pulmonary embolism. COMMENTS: chest pain, coughing up blood COMPARISON: February 19, 2020 TECHNIQUE: Thin spiral chest CT was performed per pulmonary embolism protocol, following uneventful administration of intravenous contrast. Amount of intravenous contrast: 100 mL of Isovue-370. MIP images are included. FINDINGS: There is no intraluminal filling defect identified within the central and proximal segmental pulmonary arteries to suggest pulmonary embolism. The thoracic aorta shows no evidence for dissection. The pulmonary parenchyma is clear of consolidating infiltrates. Emphysematous changes are seen. There is no mediastinal, hilar or axillary lymphadenopathy. Slightly prominent right hilar lymph node is seen. No evidence of chest wall mass or pleural effusion is present. The central airways and visualized portion of the esophagus are normal. Limited survey views of the upper abdomen show evidence of prior gastric surgery. Degenerative changes are seen in the spine. No destructive bony lesions are visualized.. [employer] Phone: Anderson, Chpo Incoming R adiant Results From [facility] - 02/24/2021 8:32 AM EDT HISTORY: ELIJAH WYLIE is a Male of 45 years age. Evaluate for pulmonary embolism. COMMENTS: chest pain, coughing up blood COMPARISON: February 19, 2020 TECHNIQUE: Thin spiral chest CT was performed per pulmonary embolism protocol, following uneventful administration of intravenous contrast. Amount of intravenous contrast: 100 mL of Isovue-370. MIP images are included. FINDINGS: There is no intraluminal filling defect identified within the central and proximal segmental pulmonary arteries to suggest pulmonary embolism. The thoracic aorta shows no evidence for dissection. The pulmonary parenchyma is clear of consolidating infiltrates. Emphysematous changes are seen. There is no mediastinal, hilar or axillary lymphadenopathy. Slightly prominent right hilar lymph node is seen. No evidence of chest wall mass or pleural effusion is present. The central airways and visualized portion of the esophagus are normal. Limited survey views of the upper abdomen show evidence of prior gastric surgery. Degenerative changes are seen in the spine. No destructive bony lesions are visualized.. IMPRESSION: 1.No CT evidence of pulmonary embolism in the primary or secondary branches of the pulmonary arteries. 2.No acute intrathoracic pathology. Mild to moderate emphysematous changes are seen throughout the lungs. All CT scans at this facility use dose modulation, iterative reconstruction, and/or weight based dosing when appropriate to reduce radiation dose to as low as reasonably achievable. [employer] Phone: [facility] Phone: Comprehensive Metabolic Pane lOrdered By: Pj Werner on 02-24-2021 Albumin [Mass/Vol] 3.8 g/dL 3.5 - 4.6 g/dL [employer] Phone: ALP (Bld) [Catalytic activity/Vol] 119 U/L High 35 - 104 U/L [employer] Phone: ALT [Catalytic activity/Vol] 7 U/L 0 - 41 U/L [employer] Phone: Anion gap [Moles/Vol] 12 mmol/L [facility] Phone: AST [Catalytic activity/Vol] 17 U/L 0 - 40 U/[facility]: Bilirubin [Mass/Vol] 0.6 mg/dL 0.2 - 0 .7 mg/dL [employer] Phone: Calcium [Mass/Vol] 9.0 mg/dL 8.5 - 9.9 mg/dL [employer] Phone: Chloride [Moles/Vol] 106 mmol/L [employer] Phone: CO2 [Moles/Vol] 24 mmol/L [employer] Phone: Creatinine [Mass/Vol] 0.7 mg/dL 0.70 - 1.20 mg/dL [employer] Phone: Free PSA/Total PSA [Mass fraction] 6.5 g/dL 6.3 - 8.0 g/dL [employer] Phone: GFR >60.0 >60 [employer] Phone: Comment on above: >60 mL/min/1.73m2 EG FR, calc. for ages 18 and older using the MDRD formula (not corrected for weight), is valid for stable renal function. GFR Non- >60.0 >60 [employer] Phone: Comment on above: >60 mL/min/1.73m2 EG FR, calc. for ages 18 and older using the MDRD formula (not corrected for weight), is valid for stable renal function. Globulin (S) [Mass/Vol] 2.7 g/dL 2.3 - 3.5 g/dL [employer] Phone: Glucose [Mass/Vol] 112 mg/dL High 70 - 99 mg/dL [employer] Phone: Potassium [Moles/Vol] 3.9 mmol/L [facility] [employer] Phone: Sodium [Moles/Vol] 142 mmol/L [employer] Phone: Urea nitrogen (BldV) [Mass/Vol] 9 mg/dL 6 - 20 mg/dL [employer] Phone: MagnesiumOrdered By: Pj Becerril on 02-24-2021 Magnesium [Mass/Vol] 1.8 mg/dL 1.7 - 2 .4 mg/dL [employer] Phone: No Panel InformationOrdered By: Pj Werner on 02-24-2021 Interpretation and review of laboratory results Abnormal [employer] Phone: [employer] Phone: Protime-INROrdered By: Pj Werner on 02-24-2021 INR Coag (Bld) [Relative time] 1.0 {INR} [employer] Phone: PT Coag (PPP) [Time] 12.8 s [employer] Phone: TroponinOrdered By: Pj Talbot on 02-24-2021 Troponin I.cardiac [Mass/Vol] ng/mL 0.000 - 0.010 ng/mL [employer] Phone: Comment on above: Methodology by Ambrosio Cervantes COVID-19, RapidOrdered By: Randy Shin on 10-24-2020 SARS-CoV-2 (COVID-19) RNA SHANICE+probe Ql (Unsp spec) Not detected Not Detected [employer] Phone: Comment on above: Rapid NAAT: Negative results should be treated as presumptive and, if inconsistent with clinical signs and symptoms or necessary for patient management, should be tested with an alternative molecular assay. Negative results do not preclude SARS-CoV-2 infection and should not be used as the sole basis for patient management decisions. This test has been authorized by the FDA under an Emergency Use Authorization (EUA) for use by authorized laboratories. Fact sheet for Healthcare Providers: https://www.fda.gov/media/017260/download Fact sheet for Patients: https://www.fda.gov/media/979171/download METHODOLOGY: Isothermal Nucleic Acid Amplification [employer] Phone: Rapid Strep ScreenOrdered By : Karuna Shin on 10-24-2020 Strep Grp A PCR Negative [employer] Phone: Comment on above: Negative for Strep A nucleic acid. [employer] Phone: AmylaseOrdered By: Karuna herrera on 10-15-2020 Amylase [Catalytic activity/Vol] 44 U/L 22 - 93 U/L [employer] Phone: CBC Auto DifferentialOrdered By: Karuna Shin on 10-15-2020 Basophils (Bld) [#/Vol] 0.1 10*3/uL 0.0 - 0.1 K/uL [employer] Phone: Basophils/100 WBC (Bld) 1.7 % High 0.2 - 1.2 % [employer] Phone: Eosinophils (Bld) [#/Vol] 0.2 10*3/uL 0.0 - 0.5 K/uL [employer] Phone: Eosinophils/100 WBC (Bld) 2.9 % 0.8 - 7.0 % [employer] Phone: Hematocrit (Bld) [Volume fraction] 46.6 % 42.0 - 52.0 % [employer] Phone: Hemoglobin.gastrointe stinal spec 1 Ql (Stl) 15.2 g/dL 13.7 - 17.5 g/dL [employer] Phone: Immature granulocytes (Bld) [#/Vol] 0.0 10*3/uL [employer] Phone: Immature granulocytes/100 WBC (Bld) 0.5 % [employer] Phone: Lymphocytes (Bld) [#/Vol] 2.0 10*3/uL 1.3 - 3.6 K/uL [employer] Phone: Lymphocytes/100 WBC (Bld) 25.0 % [employer] Phone: MCH (RBC) [Entitic mass] 29.7 pg 25.7 - 32.2 pg [employer] Phone: MCHC (RBC) [Mass/Vol] 32.6 % 32.3 - 36.5 % [employer] Phone: MCV (RBC) [Entitic vol] 91.0 fL 79.0 - 92.2 fL [employer] Phone: Monocytes (Bld) [#/Vol] 0.6 10*3/uL 0.3 - 0.8 K/uL [employer] Phone: Monocytes/100 WBC (Bld) 7.0 % 5.3 - 12.2 % [employer] Phone: Neutrophils Absolute 5.0 K/uL 1.8 - 5 .4 K/uL [employer] Phone: Neutrophils/100 WBC (Bld) 62.9 % 34.0 - 67.9 % [employer] Phone: Platelet distribution width (Bld) [Ratio] 13.0 % 11.6 - 14.4 % [employer] Phone: Platelets (Bld) [#/Vol] 227 10*3/uL 163 - 337 K/uL [employer] Phone: RBC (Bld) [#/Vol] 5.12 10*6/uL [employer] Phone: WBC (Bld) [#/Vol] 7.9 10*3/uL 4.2 - 9.0 K/uL [employer] Phone: Comprehensive Metabolic Pane lOrdered By: Karuna Shin on 10-15-2020 Albumin [Mass/Vol] 3.8 g/dL 3.5 - 4.6 g/dL [facility] Phone: ALP (Bld) [Catalytic activity/Vol] 98 U/L 35 - 104 U/L [facility] Phone: ALT [Catalytic activity/Vol] 13 U/L 0 - 41 U/L [facility] Phone: Anion gap [Moles/Vol] 9 mmol/L [employer] Phone: AST [Catalytic activity/Vol] 16 U/L 0 - 40 U/L [employer] Phone: Bilirubin [Mass/Vol] 0.7 mg/dL 0.2 - 0 .7 mg/dL [facility] Phone: Calcium [Mass/Vol] 8.5 mg/dL 8.5 - 9.9 mg/dL [facility] Phone: Chloride [Moles/Vol] 106 mmol/L [employer] Phone: CO2 [Moles/Vol] 24 mmol/L [employer] Phone: Creatinine [Mass/Vol] 0.77 mg/dL 0.70 - 1.20 mg/dL [employer] Phone: Free PSA/Total PSA [Mass fraction] 6.6 g/dL 6.3 - 8.0 g/dL [facility] Phone: GFR >60.0 >60 [employer] Phone: Comment on above: >60 mL/min/1.73m2 EG FR, calc. for ages 18 and older using the MDRD formula (not corrected for weight), is valid for stable renal function. GFR Non- >60.0 >60 [facility] Phone: Comment on above: >60 mL/min/1.73m2 EG FR, calc. for ages 18 and older using the MDRD formula (not corrected for weight), is valid for stable renal function. Globulin (S) [Mass/Vol] 2.8 g/dL 2.3 - 3.5 g/dL [facility] Phone: Glucose [Mass/Vol] 102 mg/dL High 70 - 99 mg/dL [employer] Phone: Potassium [Moles/Vol] 4.2 mmol/L [facility] [employer] Phone: Sodium [Moles/Vol] 139 mmol/L [employer] Phone: Urea nitrogen (BldV) [Mass/Vol] 8 mg/dL 6 - 20 mg/dL [employer] Phone: EKG 12 Lead - Chest PainOrde red By: Karuna Shin on 10-15-2020 Atrial Rate 65 BPM [employer] Phone: P Stewardson 23 degrees [employer] Phone: P-R Interval 138 ms [employer] Phone: Q-T Interval 420 ms [employer] Phone: QRS Duration 98 ms [employer] Phone: QTc Calculation (Bazett) 436 ms [employer] Phone: R Stewardson 17 degrees [employer] Phone: T Stewardson 36 degrees [employer] Phone: Ventricular Rate 65 BPM [employer] Phone: Normal sinus rhythm Normal ECG When compared with ECG of 20-FEB-2020 12:59, No significant change was found Confirmed by Marin Matos ([id number]) on 10/15/2020 9:13:16 AM [facility] Phone: Anderson, Chpo Incoming R esults From [place] - 10/15/2020 9:13 AM EDT Normal sinus rhythm Normal ECG When compared with ECG of 20-FEB-2020 12:59, No significant change was found Confirmed by Marin Matos ([id number]) on 10/15/2020 9:13:16 AM [facility] Phone: [facility] Phone: LipaseOrdered By: Karuna abbott on 10-15-2020 Lipase [Catalytic activity/Vol] 24 U/L 12 - 95 U/L [facility] Phone: MagnesiumOrdered By: Karuna Shin on 10-15-2020 Magnesium [Mass/Vol] 1.8 mg/dL 1.7 - 2 .4 mg/dL [employer] Phone: No Panel InformationOrdered By: Karuna Shin on 10-15-2020 Interpretation and review of laboratory results Abnormal [facility] Phone: [facility] Phone: TroponinOrdered By: Karuna Shin on 10-15-2020 Troponin I.cardiac [Mass/Vol] ng/mL 0.000 - 0.010 ng/mL [employer] Phone: Comment on above: Methodology by Ambrosio Cervantes US GALLBLADDER RUQOrdered By : Karuna Shin on 06-02-2021 NEGATIVE RIGHT UPPER QUADRANT ULTRASOUND WITHOUT EVIDENCE OF CHOLELITHIASIS. [facility] Phone: EXAMINATION: US GALL BLADDER RUQ DATE AND TIME:10/15/2020 9:12 AM CLINICAL HISTORY: Epigastric pain abd pain last ate yesterday COMPARISON: None TECHNIQUE: Lopez-scale evaluation of the right upper quadrant was performed. FINDINGS: Scan quality limited by attenuation of sound by soft tissue. Liver: Hepatic echogenicity is within normal limits without intrahepatic biliary dilatation. Gallbladder: The gallbladder was normally distended without stones, sludge, or wall thickening. The common duct measures up to 4 mm. Pancreas: Was not optimally visualized due to bowel and gas shadowing, but the visualized portion did not demonstrate any gross pathology. [facility] Phone: AndersonCelia R adiant Results From [facility] - 10/15/2020 10:08 AM EDT EXAMINATION: US GALLBLADDER RUQ DATE AND TIME:10/15/2020 9:12 AM CLINICAL HISTORY: Epigastric pain abd pain last ate yesterday COMPARISON: None TECHNIQUE: Lopez-scale evaluation of the right upper quadrant was performed. FINDINGS: Scan quality limited by attenuation of sound by soft tissue. Liver: Hepatic echogenicity is within normal limits without intrahepatic biliary dilatation. Gallbladder: The gallbladder was normally distended without stones, sludge, or wall thickening. The common duct measures up to 4 mm. Pancreas: Was not optimally visualized due to bowel and gas shadowing, but the visualized portion did not demonstrate any gross pathology. IMPRESSION: NEGATIVE RIGHT UPPER QUADRANT ULTRASOUND WITHOUT EVIDENCE OF CHOLELITHIASIS. [facility] Phone: [facility] Phone: POCT Glucoseon 08-07-2020 Glucose [Mass/Vol] 96 mg/dL [employer] Phone: Interpretation and review of laboratory results Normal [employer] Phone: QC OK? ok [facility] Phone: Brain Natriuretic Peptideon 02-20-2020 Natriuretic peptide B (Bld) [Mass/Vol] 191 pg/mL [facility] [place] Comment on above: NT-pro BNP ACUTE Int erpretive Guidelines: Age Cutoff for Heart Failure Less than 50 yrs 450 pg/mL 50-75 yrs 900 pg/mL Greater than 75 yrs 1800 pg/mL NT-pro BNP NON-ACUTE Interpretive Guidelines: Age Reference Range Less than 74 yrs 0-125 pg/mL Greater than 74 yrs 0-450 pg/mL Other possible causes of an elevated NT-proBNP include: cardiac ischemia, acute coronary syndrome, COPD, pneumonia, atrial fibrillation, pulmonary emboli, pulmonary hypertension, pericarditis Reference: Nolan Luo et al. NT-proBNP testing for diagnosis and short-term prognosis in acute destabilized HF: an international pooled analysis of 1256 patients. Heart Journal. 2006;27:330-337 CBC Auto Differentialon 10-0 Basophils (Bld) [#/Vol] 0.2 10*3/uL 0 - 0.2 K/uL [place] Basophils/100 WBC (Bld) 2.2 % [place] Eosinophils (Bld) [#/Vol] 0.3 10*3/uL 0 - 0.7 K/uL [place] Eosinophils/100 WBC (Bld) 4.1 % [place] Erythrocyte distribution width (RBC) [Ratio] 13.8 % 11.5 - 14.5 % [place] Hematocrit (Bld) [Volume fraction] 42.1 % 42 - 52 % [place] Hemoglobin (Bld) [Mass/Vol] 14.2 g/dL 14 - 18 g/dL [place] Interpretation and review of laboratory results Abnormal [place] Lymphocytes (Bld) [#/Vol] 2.2 10*3/uL 1 - 4.8 K/uL [place] Lymphocytes/100 WBC (Bld) 29.0 % [place] MCH (RBC) [Entitic mass] 30.3 pg 27 - 31.3 pg [place] MCHC (RBC) [Mass/Vol] 33.7 % 33 - 37 % [place] MCV (RBC) [Entitic vol] 89.9 fL 80 - 100 fL [place] Monocytes (Bld) [#/Vol] 0.7 10*3/uL 0.2 - 0.8 K/uL [place] Monocytes/100 WBC (Bld) 9.8 % [place] Neutrophils Absolute 4.1 K/uL 1.4 - 6 .5 K/uL [place] Neutrophils/100 WBC (Bld) 54.9 % [place] Platelets (Bld) [#/Vol] 200 10*3/uL 130 - 400 K/uL [place] RBC (Bld) [#/Vol] 4.69 10*6/uL Low [place] WBC (Bld) [#/Vol] 7.5 10*3/uL 4.8 - 10.8 K/uL [place] Comprehensive Metabolic Pane valentino 02-20-2020 Albumin [Mass/Vol] 4.1 g/dL 3.5 - 4.6 g/dL [place] ALP [Catalytic activity/Vol] 93 U/L 35 - 104 U/L [place] ALT [Catalytic activity/Vol] 11 U/L 0 - 41 U/L [place] Anion gap [Moles/Vol] 11 mmol/L [place] AST [Catalytic activity/Vol] 20 U/L 0 - 40 U/L [place] Bilirubin Ql (U) 0.4 mg/dL 0.2 - 0.7 mg/dL [place] Calcium [Mass/Vol] 9.3 mg/dL 8.5 - 9.9 mg/dL [place] Chloride [Moles/Vol] 103 mmol/L [place] CO2 [Moles/Vol] 25 mmol/L [place] Creatinine [Mass/Vol] 0.91 mg/dL 0.7 - 1.2 mg/dL [place] GFR >60.0 >60 [place] Comment on above: >60 mL/min/1.73m2 EG FR, calc. for ages 18 and older using the MDRD formula (not corrected for weight), is valid for stable renal function. GFR Non- >60.0 >60 [place] Comment on above: >60 mL/min/1.73m2 EG FR, calc. for ages 18 and older using the MDRD formula (not corrected for weight), is valid for stable renal function. Globulin (S) [Mass/Vol] 2.8 g/dL 2.3 - 3.5 g/dL [place] Glucose [Mass/Vol] 93 mg/dL 70 - 99 mg/dL [place] Potassium [Moles/Vol] 4.5 mmol/L [place] Protein [Mass/Vol] 6.9 g/dL 6.3 - 8 g/dL [place] Sodium [Moles/Vol] 139 mmol/L [place] Urea nitrogen [Mass/Vol] 9 mg/dL 6 - 20 mg/dL [place] Ethanolon 02-20-2020 Ethanol Lvl <10 mg/dL [place] Ethanol percent Not indicated G/dL [place] Magnesiumon 02-20-2020 Magnesium [Mass/Vol] 2.0 mg/dL 1.7 - 2 .4 mg/dL [place] Troponinon 02-20-2020 Troponin I.cardiac [Mass/Vol] ng/mL 0 - 0.01 ng/mL [place] Comment on above: Methodology by Ambrosio Cervantes ALLIED HEALTHon 05-24-2019 ALLIED [facility]ALTH HNO ID: [id number] Author: Kiya Flores (CtSTEVE Sue Service: ? Author Type: Clinical Computer System Technician Type: Allied Health Filed: 05/24/2019 12:47 PM Note Text: Radiology Service Progress Note PATIENT NAME: Elijah Wylie Jr. DATE OF SERVICE: May 24, 2019 TIME: 12:47 PM PATIENT IDENTITY VERIFICATION COMPLETED USING TWO (2) IDENTIFIERS: Name and Date of confirmed by patient verbally. PATIENT GENDER DATA: Male PATIENT RELEVANT IMPLANT DATA REVIEWED: Not Applicable RADIOLOGY DEPARTMENT: General X-ray: Exam(s) Completed: Upper Extremity X-Ray(s): Fingers/Thumb, right : PERIPHERAL IV DATA: Not applicable SIGNED BY: STEVE Joel May 24, 2019 12:47 PM [facility] C-Reactive Proteinon 020 CRP [Mass/Vol] 0.1 mg/dL Normal <0.9 [facility] Comment on above: Performed By: #### C BCDIF, CMP, LIPA, MG1 #### [facility] [address] [phone] CBC and Differentialon 05-24 Abs Baso 0.12 k/uL High <0.11 [facility] Comment on above: Performed By: #### C BCDIF, CMP, LIPA, MG1 #### [facility] [address] Abs Emm[place] 0.67 k/uL Normal <0.87 [facility] Comment on above: Performed By: #### C BCDIF, CMP, LIPA, MG1 #### [facility] [address] [place], [place] [phone] Abs Neut 4.40 k/uL Normal 1.45-7.50 [facility] Comment on above: Performed By: #### C BCDIF, CMP, LIPA, MG1 #### [facility] [address] [place], [place] [phone] Basophils/100 WBC (Bld) 1.7 % Normal [facility] Comment on above: Performed By: #### C BCDIF, CMP, LIPA, MG1 #### [facility] [address] [place], [place] [phone] Eosinophils (Bld) [#/Vol] 0.30 10*3/uL Normal <0.46 [facility] Comment on above: Performed By: #### C BCDIF, CMP, LIPA, MG1 #### [facility] [address] [place], [place] [phone] Eosinophils/100 WBC (Bld) 4.1 % Normal [facility] Comment on above: Performed By: #### C BCDIF, CMP, LIPA, MG1 #### [facility] [address] [place], [place] [phone] Erythrocyte distribution width (RBC) [Ratio] 13.8 % Normal 11.5-15.0 [facility] Comment on above: Performed By: #### C BCDIF, CMP, LIPA, MG1 #### [facility] [address] [place], [place] [phone] Hematocrit (Bld) [Volume fraction] 45.1 % Normal 39.0-51.0 [facility] Comment on above: Performed By: #### C BCDIF, CMP, LIPA, MG1 #### [facility] [address] [phone] Hemoglobin (Bld) [Mass/Vol] 14.9 g/dL Normal 13.0-17.0 [facility] Comment on above: Performed By: #### C BCDIF, CMP, LIPA, MG1 #### [facility] [address] [facility] [phone] Lymphocytes (Bld) [#/Vol] 1.75 10*3/uL Normal 1.00-4.00 [facility] Comment on above: Performed By: #### C BCDIF, CMP, LIPA, MG1 #### [facility] [address] [phone] Lymphocytes/100 WBC (Bld) 24.2 % Normal [facility] Comment on above: Performed By: #### C BCDIF, CMP, LIPA, MG1 #### [facility] [address] [phone] MCH (RBC) [Entitic mass] 30.7 pG Normal 26.0-34.0 [facility] Comment on above: Performed By: #### C BCDIF, CMP, LIPA, MG1 #### [facility] [address] [phone] MCHC (RBC) [Mass/Vol] 33.0 g/dL Normal 30.5-36.0 [facility] Comment on above: Performed By: #### C BCDIF, CMP, LIPA, MG1 #### [facility] [address] [phone] MCV (RBC) [Entitic vol] 92.8 fL Normal 80.0-100.0 [facility] Comment on above: Performed By: #### C BCDIF, CMP, LIPA, MG1 #### [facility] [address] [phone] Monocytes/100 WBC (Bld) 9.3 % Normal [facility] Comment on above: Performed By: #### C BCDIF, CMP, LIPA, MG1 #### [facility] [address] [place] [address] Neutrophils/100 WBC (Bld) 60.7 % Normal [facility] Comment on above: Performed By: #### C BCDIF, CMP, LIPA, MG1 #### [facility] [address] [address] Platelet mean volume (Bld) [Entitic vol] 12.3 fL Normal 9.0-12.7 [facility] Comment on above: Performed By: #### C BCDIF, CMP, LIPA, MG1 #### [facility] [address] [place] [address] Platelets (Bld) [#/Vol] 198 10*3/uL Normal 150-400 [facility] Comment on above: Performed By: #### C BCDIF, CMP, LIPA, MG1 #### [facility] [address] [place] [address] RBC (Bld) [#/Vol] 4.86 10*6/uL Normal 4.20-6.00 [facility] Comment on above: Performed By: #### C BCDIF, CMP, LIPA, MG1 #### [facility] [address] [place] [address] WBC (Bld) [#/Vol] 7.24 10*3/uL Normal 3.70-11.00 [facility] Comment on above: Performed By: #### C BCDIF, CMP, LIPA, MG1 #### [facility] [address] [place] [address] Comp Metabolic Panelon 05-24 Albumin [Mass/Vol] 4.1 g/dL Normal 3.9-4.9 [facility] Comment on above: Performed By: #### C BCDIF, CMP, LIPA, MG1 #### [facility] [address] [place] [address] ALP [Catalytic activity/Vol] 91 U/L Normal 38-113 [facility] Comment on above: Performed By: #### C BCDIF, CMP, LIPA, MG1 #### [facility] [address] [place] [address] ALT [Catalytic activity/Vol] 9 U/L Low 10-54 [facility] Comment on above: Performed By: #### C BCDIF, CMP, LIPA, MG1 #### [facility] [address] [place] [address] Anion gap [Moles/Vol] 13 mmol/L Normal 9-18 [facility] Comment on above: Performed By: #### C BCDIF, CMP, LIPA, MG1 #### [facility] [address] [place] [address] AST [Catalytic activity/Vol] 15 U/L Normal 14-40 [facility] Comment on above: Performed By: #### C BCDIF, CMP, LIPA, MG1 #### [facility] [address] [place] [address] Bilirubin [Mass/Vol] 0.5 mg/dL Normal 0.2-1.3 [facility] Comment on above: Performed By: #### C BCDIF, CMP, LIPA, MG1 #### [facility] [address] [place] [address] Calcium [Mass/Vol] 9.4 mg/dL Normal 8.5-10.2 [facility] Comment on above: Performed By: #### C BCDIF, CMP, LIPA, MG1 #### [facility] [address] [place] [address] Chloride [Moles/Vol] 107 mmol/L High 97-105 [facility] Comment on above: Performed By: #### C BCDIF, CMP, LIPA, MG1 #### [facility] [address] [place] [address] CO2 [Moles/Vol] 24 mmol/L Normal 22-30 [facility] Comment on above: Performed By: #### C BCDIF, CMP, LIPA, MG1 #### [facility] [address] [place], [place] [phone] Creatinine [Mass/Vol] 0.78 mg/dL Normal 0.73-1.22 [facility] Comment on above: Performed By: #### C BCDIF, CMP, LIPA, MG1 #### [facility] [address] [place] [address] eGFR- Amer. >60 Normal [facility] Comment on above: Performed By: #### C BCDIF, CMP, LIPA, MG1 #### [facility] [address] [facility] [phone] GFR/1.73 sq M predicted among non-blacks MDRD (S/P/Bld) [Vol rate/Area] mL/min/{1.73_m2} Normal [facility] Comment on above: Result Comment: eGFR (Estimated GFR) Units of measure: mL/min/1.73 meters squared eGFR is derived from the reexpressed MDRD Study equation using the following parameters: serum creatinine, age, gender and race. The creatinine assay has been calibrated to be traceable to IDMS. An eGFR <60 mL/min/1.73m2 for >3 months is consistent with chronic kidney disease. Refer to KDOQI guidelines for clinical interpretation. In patients with unstable renal function, e.g. those with acute kidney injury, the eGFR may not accurately reflect actual GFR. Performed By: #### C BCDIF, CMP, LIPA, MG1 #### [facility] [address] [facility] [phone] Glucose [Mass/Vol] 96 mg/dL Normal 74-99 [facility] Comment on above: Result Comment: The [place] [employer] (ADA) provides guidance for cutoff values for fasting glucose and random glucose. The ADA defines fasting as no caloric intake for at least 8 hours. Fasting plasma glucose results between 100 to 125 mg/dL indicate increased risk for diabetes (prediabetes). Fasting plasma glucose results greater than or equal to 126 mg/dL meet the criteria for diagnosis of diabetes. In the absence of unequivocal hyperglycemia, results should be confirmed by repeat testing. In a patient with classic symptoms of hyperglycemia or hyperglycemic crisis, random plasma glucose results greater than or equal to 200 mg/dL meet the criteria for diagnosis of diabetes. Reference: Standards of Medical Care in Diabetes 2016, [place] [employer] Association. Diabetes Care. 2016.39(Suppl 1). Performed By: #### C BCDIF, CMP, LIPA, MG1 #### [facility] [address] [facility] [phone] Potassium [Moles/Vol] 4.2 mmol/L Normal 3.7-5.1 [facility] Comment on above: Performed By: #### C BCDIF, CMP, LIPA, MG1 #### [facility] [address] [facility] [phone] Protein [Mass/Vol] 7.0 g/dL Normal 6.3-8.0 [facility] Comment on above: Performed By: #### C BCDIF, CMP, LIPA, MG1 #### [facility] [address] [facility] [phone] Sodium [Moles/Vol] 144 mmol/L Normal 136-144 [facility] Comment on above: Performed By: #### C BCDIF, CMP, LIPA, MG1 #### [facility] [address] [facility] [phone] Urea nitrogen [Mass/Vol] 8 mg/dL Low 9-24 [facility] Comment on above: Performed By: #### C BCDIF, CMP, LIPA, MG1 #### [facility] [address] [facility] [phone] ED NOTEon 05-24-2019 ED NOTE HNO ID: [id number] Author: Mely EastRn) YOLI Whittington Service: ? Author Type: Registered Nurse Type: ED Notes Filed: 05/24/2019 11:47 AM Note Text: 04/14/[facility], he cut the tip of his right middle finger off with a circular saw. Pt states it been getting more swollen and he has had fevers. He took tylenol this am around 0930. Pt states before it was infected I was able to move my hand, now I can't and I can't even move my finger. [facility] ED NOTE HNO ID: [id number] Author: Елена EastRn) Carmella, YOLI Service: ? Author Type: Registered Nurse Type: ED Notes Filed: 05/24/2019 12:33 PM Note Text: Patient to Xray with tech. [facility] ED NOTE HNO ID: [id number] Author: Елена EastRn) Carmella, RN Service: ? Author Type: Registered Nurse Type: ED Notes Filed: 05/24/2019 4:31 PM Note Text: IV was removed and patient is transporting self to [facility] ER for a transfer. He was given paper work. With . [facility] ED PROV NOTEon 05-24-2019 ED PROV NOTE HNO ID: [id number] Author: Tona Ramirez MD Service: ? Author Type: Physician Type: ED Provider Notes Filed: 05/30/2019 11:30 AM Note Text: [facility] EM[facility]Y DEPARTMENT ENCOUnter Pt Name: Elijah Wylie Jr. Birthdate 1975 Date of evaluation: 05/24/2019 Provider: Kaiden Wayne MS, JANIC CHIEF COMPLAINT chief complaint Finger pain HISTORY OF PRESENT ILLNESS (Location/Symptom, Timing/Onset, Context/Setting, Quality, Duration, Modifying Factors, Severity) Note limiting factors. HPI Elijah Wylie Jr. is a 44 year old male who presents to the emergency department with complaint of right middle finger pain and swelling. He said that this was partially amputated after a saw accident on April 14. He had a surgical procedure to revise this. He felt pain since this happened. If the distal aspect of the right middle finger. He denies numbness certainly. Pain is focal at the distal aspect and radiates proximally. He has no pain with flexion at the proximal joint however. The tissue surrounding feels swollen and he describes essentially serosanguineous fluid but no purulent fluid that has been present in the past, is not currently present. He denies fever. He has not stopped smoking despite this injury. They describe the pain as like someone is putting a metal pick into the tip of his finger. The patient gives a pain scale of 7/10, with 10 being the worst pain. This is worsened by touching the affected area or with use. This is improved by nothing in particular. His [place] pain medication and really did not touch this. Patient says he cannot take anti-inflammatories. Associated symptoms include nothing else. This patient's PMH is significant for long-term tobacco use and this injury. The patient's family history is significant for nothing that is relevant. The patient is a smoker. I have reviewed the patient's personal and family past medical history as well as the nurse's notes and I agree. Personal history and family past medical history as listed in this chart. I have reviewed the patient's vitals and agree. REVIEW OF SYSTEMS (2+ for level 4; 10+ for level 5) Review of Systems This patient's personal and family past medical history as stated in HPI and otherwise unremarkable. ROS as stated in HPI otherwise unremarkable, a total of 10 systems reviewed. PAST MEDICAL HISTORY PAST MEDICAL HISTORY Diagnosis Date - Dysmetabolic syndrome X resolved with wt loss - History of Monica-en-Y gastric bypass 300 # wt loss - Lumbago - Morbid obesity (HCC) 08-05-10 stated BMI 51.83 Ht: 78 Wt: 448 lbs - Other and unspecified hyperlipidemia resolved with wt loss - Psychiatric disorder anxiety, depression - PUD (peptic ulcer disease) - Unspecified essential hypertension resolved with wt loss SURGICAL HISTORY PAST SURGICAL HISTORY Procedure Laterality Date - GASTRIC BYPASS HX 04/13/11 Laparoscopic Monica-en-Y gastric bypass - ORTHOPEDICS SURGERY HX 11-26-2013 left shoulder scope - PAST SURGICAL HISTORY OF 2012 left hand boxer fracture repair CURRENT MEDICATIONS Previous Medications ALPRAZOLAM (XANAX) 1 MG TABLET 0.5 mg at bedtime as needed. ASCORBIC ACID (VITAMIN C) 1,000 MG TABLET Take 1,000 mg by mouth once daily. CALCIUM CITRATE, BULK, MISC CYCLOBENZAPRINE (FLEXERIL) 10 MG TABLET Take 1 tablet by mouth every 8 hours as needed for Muscle Spasm. DIAZEPAM (VALIUM) 5 MG TABLET Take 1 tablet by mouth every 8 hours as needed (muscle spasms). GUAIFENESIN-DEXTROMETHORPHAN (ROBITUSSIN DM) 100-10 MG/5 ML SYRUP Take 5 mL by mouth three times daily as needed. MULTIVIT ANDMINERALS/FERROUS FUM (MULTI VITAMIN ORAL) Take by mouth. NICOTINE (NICODERM) 21 MG/24 HR Apply 1 Patch as directed once daily. PANTOPRAZOLE DR (PROTONIX) 40 MG TABLET Take 1 tablet by mouth twice daily. PREDNISONE (DELTASONE) 20 MG TABLET Take 1 tablet by mouth twice daily. SCOPOLAMINE (TRANSDERM-SCOP) 1 MG OVER 3 DAYS Apply 1 Patch as directed every 72 hours. TRAZODONE (DESYREL) 50 MG TABLET Take 50 mg by mouth daily at bedtime. ALLERGIES Ceclor [Cefaclor]; Sulfa (Sulfonamide Antibiotics); Bactrim [Sulfamethoxazole-Trimethopri m]; Nsaids (Non-Steroidal Anti-Inflammatory Drug) FAMILY HISTORY FAMILY HISTORY Problem Relation Age of Onset - Diabetes Mother SOCIAL HISTORY Social History Tobacco Use - Smoking status: Current Every Day Smoker Packs/day: 1.00 Years: 21.00 Pack years: 21.00 Types: Cigarettes Last attempt to quit: 05/16/2009 Years since quittin.0 - Smokeless tobacco: Never Used Substance Use Topics - Alcohol use: No - Drug use: No SCREENINGS PHYSICAL EXAM (up to 7 for level 4, 8 or more for level 5) Physical Exam Constitutional: Patient is AAO x3, appears to be well-nourished and hydrated. Psych: Appropriate mood and affect for chief complaint. Patient is calm and pleasant despite his disorder. Integumentary: Skin as described in extremities exam, no ecchymosis, skin is warm and dry otherwise. Neuro: Patient has sensation over the affected area as well as distally, no gross sensory or motor deficit. Vascular: Good ulnar and radial pulses bilaterally. Capillary refill of all fingers less than 2 seconds. Cardiac: Regular rhythm and rate, S1-S2 are both audible. No murmurs rubs or gallops. Respiratory: Lungs clear to auscultation in all arriaga. No tachypnea. Patient speaks in full sentences. Musculoskeletal: Muscle grading in bilateral upper extremities is 5/5. Difficult to discern between bony tenderness and soft tissue discomfort, this is all focal to the distal aspect of what remains of his right middle phalanx but there is no tenderness at the proximal phalanx. Extremities: He has some soft tissue swelling at the right middle finger. There seems to be a dry scab wound that does not reveal evidence of fluctuance or induration. No purulent fluid identified. Is a slight color change to the affected finger versus surrounding nonaffected fingers, but there is a small amount of erythema. This is a slightly warmer digit but not a hot digit. HENT: Head appears atraumatic and normocephalic. Trachea midline. Lymphatics: No right upper extremity or axillary lymphadenopathy. Eyes: Conjunctivae are clear. Full extraocular eye movements intact. ? LABS: Labs Reviewed COMP METABOLIC PANEL - Abnormal; Notable for the following components: Result Value BUN 8 (*) Chloride 107 (*) ALT 9 (*) All other components within normal limits CBC + DIFF - Abnormal; Notable for the following components: Abs Baso 0.12 (*) All other components within normal limits C-REACTIVE PROTEIN (CRP) RAPID PCR ASSAY FOR INFLUENZA All other labs were within normal range or not returned as of this dictation. EMERGENCY DEPARTMENT COURSE and DIFFERENTIAL DIAGNOSIS/MDM: Vitals: 05/24/19 1144 05/24/19 1330 BP: 140/82 146/80 Pulse: 70 59 Resp: 18 Temp: 36.6 ?C (97.9 ?F) TempSrc: Oral SpO2: 98% 99% Weight: 109.8 kg (242 lb 1.6 oz) Medications NaCl 0.9% 1,000 mL iv bolus (1,000 mL INTRAVENOUS New Bag/Syringe/Bottle 05/24/19 1215) ondansetron (PF) 4 mg injection (ZOFRAN) (4 mg INTRAVENOUS Given 05/24/19 1214) morphine 4 mg injection (4 mg INTRAVENOUS Given 05/24/19 1215) vancomycin 1.75 g in D5W 500 mL (VANCOCIN) (1.75 g INTRAVENOUS New Bag/Syringe/Bottle 05/24/19 1323) piperacillin-tazobactam iv piggyback 3.375 g in dextrose (iso-osmotic) 50 mL (ZOSYN) (3.375 g INTRAVENOUS New Bag/Syringe/Bottle 05/24/19 1248) MDM The patient came here with complaint of requiring an evaluation for a post-surgical wound. By my findings the patient seems to have a post-surgical wound that should be evaluated by her surgeon. Diagnostic studies show an unremarkable CRP, CBC is unremarkable, metabolic panel unremarkable. An influenza test was performed as the patient secondarily reported to attending that he had a temperature of 100.4 but this test is unremarkable as well. Imaging shows: Xr Digit General 3v Frontal/lat/obl Rt Addendum Date: 05/24/2019 * * *Final Report* * * * * * SEE BOTTOM OF REPORT FOR ADDENDED TEXT * * * DATE OF EXAM: May 24 2019 12:46PM MDX [id number] - XR DIGIT 3V FRONTAL/LAT/OBL RT / PROCEDURE REASON: Osteomyelitis, hand * * * * Physician Interpretation * * * * * * * * * * * * ORIGINAL REPORT * * * * * * * * EXAMINATION: XR DIGIT 3V FRONTAL/LAT/OBL RT CLINICAL HISTORY: LOST MIDDLE (3RD) FINGER OF RIGHT HAND LAST MARCH, NOT HEALING WELL, HOLE IN TIP. Technique: XR DIGIT 3V FRONTAL/LAT/OBL RT -- RIGHT hand third digit with 3 views on 3 images Comparison: 12/05/2017 RESULT: Amputation at the proximal aspect of the third distal phalanx. The amputation margins are somewhat ill-defined, nonspecific. No significant degree of associated soft tissue swelling is appreciated. No dislocation. IMPRESSION: Refer to the result. * * * * * * * * ADDENDUM #1 * * * * * * * * Osteomyelitis cannot be excluded by this exam. Retail Office Manager: TAO Transcribe Date/Time: May 24 2019 1:28P Dictated by : ASUNCION WATSON MD This examination was interpreted and the report reviewed and electronically signed by: ASUNCION WATSON MD on May 24 2019 12:57PM EST This document has been addended by: ASUNCION WATSON MD on May 24 2019 1:29PM EST Result Date: 05/24/2019 * * *Final Report* * * DATE OF EXAM: May 24 2019 12:46PM MDX [id number] - XR DIGIT 3V FRONTAL/LAT/OBL RT / PROCEDURE REASON: Osteomyelitis, hand * * * * Physician Interpretation * * * * EXAMINATION: XR DIGIT 3V FRONTAL/LAT/OBL RT CLINICAL HISTORY: LOST MIDDLE (3RD) FINGER OF RIGHT HAND LAST MARCH, NOT HEALING WELL, HOLE IN TIP. Technique: XR DIGIT 3V FRONTAL/LAT/OBL RT -- RIGHT hand third digit with 3 views on 3 images Comparison: 12/05/2017 RESULT: Amputation at the proximal aspect of the third distal phalanx. The amputation margins are somewhat ill-defined, nonspecific. No significant degree of associated soft tissue swelling is appreciated. No dislocation. IMPRESSION: Refer to the result. Retail Office Manager: [facility] Transcribe Date/Time: May 24 2019 12:54P Dictated by : ASUNCION WATSON MD This examination was interpreted and the report reviewed and electronically signed by: ASUNCION WATSON MD on May 24 2019 12:57PM EST I discussed this x-ray with the radiologist, Dr. Watson, specifically she cannot rule out osteomyelitis. ? Risk factors include that this patient is a smoker and this has very likely contributed to a slow healing process for this individual, also that he has been working and using the affected hand. I estimate there is LOW risk for (including but not limited to) DISABLING FRACTURE, NEUROVASCULAR COMPROMISE, UNSTABLE FRACTURE, or TENOSYNOVITIS, thus I consider the discharge disposition reasonable. The patient (or their surrogate) and I have discussed the diagnosis and risks, and we agree with discharging home with close follow-up. We also discussed returning to the Emergency Department immediately if new or worsening symptoms occur. We have discussed the symptoms which are most concerning that necessitate immediate return. I have discussed with the patient the level of uncertainty with undifferentiated disorders associated with their visit and clearly explained the need to follow-up as noted on the discharge instructions, or return to the Emergency Department immediately if the condition worsens, or for any new symptoms or concerns. I discussed with the patient on the current clinical impression and answered any questions that they had at the time of discharge. They understand that at this time there is no indication for further workup here in the ED or admission; however, if symptoms worsen or do not improve, or if they have further questions/concerns, they must call their primary care physician immediately or return here for repeat evaluation. They were instructed to follow up with their physician as directed in the discharge instructions. The importance of appropriate follow up was also discussed with the patient. The patient expressed understanding of the plan, agreed to the above. The patient also understands that at this time there is no evidence for a more malignant underlying process, but they also understand that disease processes may become more evident with time, and understands reasons to return to the Emergency Department. More extensive discharge instructions were given in the patient's discharge paperwork. All studies, if performed, were reviewed with the patient. The patient was educated on this visit and given the opportunity to ask questions. This patient is clinically well thus I feel that at this time they are safe for discharge. The patient was advised to follow-up as directed on the discharge instructions. Treatment provided here: We cannot definitively say this patient does not have osteomyelitis although suspicion for this is low. He does not seem to represent tenosynovitis by physical exam. He was given IV antibiotics here as well as IV rehydration, we also discussed smoking cessation in great detail. We discussed that tobacco use is a likely contributing cause for this patient's condition, or at least disallowing this condition to resolve in a timely manner. We discussed smoking cessation in great detail. This patient will require evaluation by his surgeon. I spoke to Dr. Wyman at [facility] who requests that we transfer this patient immediately to [facility]. I spoke to Dr. Guzman at [facility] emergency room who accepted patient for transfer. I advised all parties that this patient is stable to be driven by his spouse, he does not require ambulance transfer and they accept this. Patient was informed that he will be evaluated by the residents in the emergency room. Admission does not seem to be eminent but this decision will be made by his surgical team. REVAL: On reevaluation there is no change. The patient and his significant other agree with treatment and plan and transfer. ? ? Comment: Please note this report has been produced using speech recognition software and may contain errors related to that system including errors in grammar, punctuation, and spelling, as well as words and phrases that may be inappropriate. If there are any questions or concerns please feel free to contact the dictating provider for clarification. ? PROCEDURES: Unless otherwise noted below, none Procedures FINAL IMPRESSION (M79.89) Finger swelling (primary encounter diagnosis) (F17.200) Tobacco use disorder DISPOSITION/PLAN He is transferred to [facility] by private vehicle stable condition. PATIENT REFERRED TO: [place] [id number] Go to the ED immediately to be seen by the hand specialist's team for evaluation. DISCHARGE MEDICATIONS: New Prescriptions No medications on file (Please note: Portions of this note were completed with a voice recognition program. Efforts were made to edit the dictations but occasionally words and phrases are mis-transcribed.) Form [id number] (electronically signed) Emergency Medicine Provider Kaiden Wayne 05/24/19 8263 Attending Note I have personally performed a face to face assessment of the patient and have reviewed the PA/SUPERVISOR PLEATING note. My pruitt findings include: History: patient here for swelling, pain, and redness to right middle finger, s/p partial amputation by [facility] in March, seen by same surgeon on Tuesday, ED on Tuesday. On . Still feels the same. Exam : soft tissue swelling with tenderness but no erythema,fluctuance, induration, or drainage. Small eraser sized dry opening/scab. No streaking Assessment/Plan : Ddx; osteomyelitis, cellulitis, abscess, normal healing Labs unremarkable, xray ok, Pac d/w his surgeon who will see him at [facility] ED. IV vanc and zosyn given in ED and transferred to [facility]. Other additions or changes: None Signature: Tona Ramirez MD Date: 05/30/2019 Time: 11:26 AM Tona Ramirez MD 05/30/19 1130 [facility] Rapid PCR Assay FLUon 2019 Influenza A PCR Negative [facility] Comment on above: Performed By: #### C BCDIF, CMP, LIPA, MG1 #### [facility] [address] Influenza B PCR Negative [facility] Comment on above: Performed By: #### C BCDIF, CMP, LIPA, MG1 #### [facility] [address] [place] [address] Specimen source Nom (Unsp spec) Nasopharyngeal Swab [facility] Comment on above: Performed By: #### C BCDIF, CMP, LIPA, MG1 #### [facility] [address] XR DIGIT 3V FRONTAL/LAT/OBL RTon 05-24-2019 XR DIGIT 3V FRONTAL/LAT/OBL RT * * *Final Report* * * * * * SEE BOTTOM OF REPORT FOR ADDENDED TEXT * * * DATE OF EXAM: May 24 2019 12:46PM MDX [id number] - XR DIGIT 3V FRONTAL/LAT/OBL RT / PROCEDURE REASON: Osteomyelitis, hand * * * * Physician Interpretation * * * * * * * * * * * * ORIGINAL REPORT * * * * * * * * EXAMINATION: XR DIGIT 3V FRONTAL/LAT/OBL RT CLINICAL HISTORY: LOST MIDDLE (3RD) FINGER OF RIGHT HAND LAST MARCH, NOT HEALING WELL, HOLE IN TIP. Technique: XR DIGIT 3V FRONTAL/LAT/OBL RT -- RIGHT hand third digit with 3 views on 3 images Comparison: 12/05/2017 RESULT: Amputation at the proximal aspect of the third distal phalanx. The amputation margins are somewhat ill-defined, nonspecific. No significant degree of associated soft tissue swelling is appreciated. No dislocation. IMPRESSION: Refer to the result. * * * * * * * * ADDENDUM #1 * * * * * * * * Osteomyelitis cannot be excluded by this exam. Retail Office Manager: TAO Transcribe Date/Time: May 24 2019 1:28P Dictated by : ASUNCION WATSON MD This examination was interpreted and the report reviewed and electronically signed by: ASUNCION WATSON MD on May 24 2019 12:57PM EST This document has been addended by: ASUNCION WATSON MD on May 24 2019 1:29PM EST [id number] Normal [facility] Basic Metabolic Panelon 03-18 Anion gap [Moles/Vol] 15 mmol/L [place], [place] Calcium [Mass/Vol] 9.1 mg/dL 8.5 - 9.9 mg/dL [place], [place] Chloride [Moles/Vol] 105 mmol/L [place], [place] CO2 [Moles/Vol] 21 mmol/L [place] Creatinine [Mass/Vol] 0.82 mg/dL 0.7 - 1.2 mg/dL [place] GFR >60.0 >60 [place] Comment on above: >60 mL/min/1.73m2 EG FR, calc. for ages 18 and older using the MDRD formula (not corrected for weight), is valid for stable renal function. GFR Non- >60.0 >60 [place] Comment on above: >60 mL/min/1.73m2 EG FR, calc. for ages 18 and older using the MDRD formula (not corrected for weight), is valid for stable renal function. Glucose [Mass/Vol] 95 mg/dL 70 - 99 mg/dL [place] Potassium [Moles/Vol] 4.7 mmol/L [place] Sodium [Moles/Vol] 141 mmol/L [place] Urea nitrogen [Mass/Vol] 14 mg/dL 6 - 20 mg/dL [place] CBC Auto Differentialon 03-18 Basophils (Bld) [#/Vol] 0.1 10*3/uL 0 - 0.2 K/uL [place] Basophils/100 WBC (Bld) 0.8 % [place] Eosinophils (Bld) [#/Vol] 0.4 10*3/uL 0 - 0.7 K/uL [place] Eosinophils/100 WBC (Bld) 4.7 % [place] Erythrocyte distribution width (RBC) [Ratio] 14.1 % 11.5 - 14.5 % [place] Hematocrit (Bld) [Volume fraction] 45.0 % 42 - 52 % [place] Hemoglobin (Bld) [Mass/Vol] 15.1 g/dL 14 - 18 g/dL [place] Interpretation and review of laboratory results Abnormal [place] Lymphocytes (Bld) [#/Vol] 2.1 10*3/uL 1 - 4.8 K/uL [place] Lymphocytes/100 WBC (Bld) 23.2 % [place] MCH (RBC) [Entitic mass] 31.4 pg High 27 - 31.3 pg [place] MCHC (RBC) [Mass/Vol] 33.5 % 33 - 37 % [place] MCV (RBC) [Entitic vol] 93.8 fL 80 - 100 fL [place] Monocytes (Bld) [#/Vol] 0.5 10*3/uL 0.2 - 0.8 K/uL [place] Monocytes/100 WBC (Bld) 5.3 % [place] Neutrophils Absolute 6.1 K/uL 1.4 - 6 .5 K/uL [place] Neutrophils/100 WBC (Bld) 66.0 % [place] Platelets (Bld) [#/Vol] 215 10*3/uL 130 - 400 K/uL [place] RBC (Bld) [#/Vol] 4.80 10*6/uL [place] WBC (Bld) [#/Vol] 9.3 10*3/uL 4.8 - 10.8 K/uL [place] XR SHOULDER RIGHT (MIN 2 VIE WS)on 04-13-2019 No acute bony abnorm alities. Consider further evaluation with MRI. [place], [place] Right shoulder 3 vie ws. HISTORY: Shoulder pain. States shoulder came out of socket yesterday. COMPARISON: No prior imaging of the right shoulder available for correlation. FINDINGS: Snaps from the patient's gown projecting over the superior lateral right humerus, soft tissues of the lateral right arm and above the clavicle. There is no sign of fractures or dislocation. Very subtle tiny well-defined lucencies at the superior lateral humerus may represent tiny cysts associated with chronic rotator cuff disease or superimposition of trabecula. Glenohumeral joint space well maintained. Acromioclavicular joint essentially unremarkable with very subtle spurring. [facility] Incoming R adiant Results From [facility] - 04/13/2019 10:01 AM EST Right shoulder 3 views. HISTORY: Shoulder pain. States shoulder came out of socket yesterday. COMPARISON: No prior imaging of the right shoulder available for correlation. FINDINGS: Snaps from the patient's gown projecting over the superior lateral right humerus, soft tissues of the lateral right arm and above the clavicle. There is no sign of fractures or dislocation. Very subtle tiny well-defined lucencies at the superior lateral humerus may represent tiny cysts associated with chronic rotator cuff disease or superimposition of trabecula. Glenohumeral joint space well maintained. Acromioclavicular joint essentially unremarkable with very subtle spurring. IMPRESSION: No acute bony abnormalities. Consider further evaluation with MRI. [facility] 08-29-2018 ED NOTE HNO ID: [id number] Author: Angelica EastRn) YOLI Bassett Service: ? Author Type: Registered Nurse Type: ED Notes Filed: 08/29/2018 2:49 PM Note Text: Discharge instructions reviewed, verbalized understanding. Patient discharged with all belongings. [facility] ED PROV NOTEon 08-29-2018 ED PROV NOTE HNO ID: [id number] Author: Evangelist Cali (Pa) Service: ? Author Type: Physician Automotive Parts Salesperson Type: ED Provider Notes Filed: 08/29/2018 3:05 PM Note Text: ED Provider Note Patient Name: Elijah Wylie Jr. SERVICE DATE: 08/29/18 History Patient presents with: Cough Fever Shortness of Breath 43-year-old male presents emergency Department with complaints of a cough since yesterday. States that he thought he was doing fine but his boss advised him to come in to be evaluated because he was coughing. States when he coughs is productive and has a green phlegm. Denies any history of COPD but states he is a smoker. Denies any chest pain or shortness of breath. Denies any history of asthma. States he did have a fever at home yesterday but is well controlled here and he states that he took Tylenol at noon. Denies any body aches. Denies any other complaints. History provided by: Patient medical interpreter used: No PAST MEDICAL HISTORY Diagnosis Date - Dysmetabolic syndrome X resolved with wt loss - History of Monica-en-Y gastric bypass 300 # wt loss - Lumbago - Morbid obesity (HCC) 08-05-10 stated BMI 51.83 Ht: 78 Wt: 448 lbs - Other and unspecified hyperlipidemia resolved with wt loss - Psychiatric disorder anxiety, depression - PUD (peptic ulcer disease) - Unspecified essential hypertension resolved with wt loss PAST SURGICAL HISTORY Procedure Laterality Date - GASTRIC BYPASS HX 04/13/11 Laparoscopic Monica-en-Y gastric bypass - ORTHOPEDICS SURGERY HX 11-26-2013 left shoulder scope - PAST SURGICAL HISTORY OF 2012 left hand boxer fracture repair FAMILY HISTORY Problem Relation Age of Onset - Diabetes Mother Social History Tobacco Use - Smoking status: Current Every Day Smoker Packs/day: 1.00 Years: 21.00 Pack years: 21.00 Types: Cigarettes Last attempt to quit: 05/16/2009 Years since quittin.2 - Smokeless tobacco: Never Used Substance and Sexual Activity - Alcohol use: No - Drug use: No - Sexual activity: Not on file ALLERGIES Allergen Reactions - Ceclor [Cefaclor] Hives, Itching, Anaphylaxis Early 20s - Sulfa (Sulfonamide * Rash - Bactrim [Sulfametho* Other: See Comments Skin sloughing - Nsaids (Non-Steroid* Other: See Comments Due to hx of gastric bipass Review of Systems Constitutional: Negative. Negative for chills, fatigue and fever. HENT: Negative. Respiratory: Positive for cough. Negative for chest tightness, shortness of breath and wheezing. Cardiovascular: Negative. Negative for chest pain. Gastrointestinal: Negative. Negative for abdominal pain, nausea and vomiting. Genitourinary: Negative. Negative for dysuria, flank pain and frequency. Musculoskeletal: Negative. Negative for back pain and neck pain. Skin: Negative. Negative for rash and wound. Neurological: Negative. Negative for dizziness, syncope, weakness, light-headedness and headaches. Psychiatric/Behavioral: Negative. Physical Exam BP 119/56 Pulse 87 Temp (Src) 97.8 (Oral) Resp 16 Ht 6' 5 (1.96m) Wt 219 lb (99.3kg) SpO2 98% BMI 25.96 kg/(m2). O2 Therapy: Room Air Physical Exam Constitutional: He is oriented to person, place, and time. He appears well-developed and well-nourished. Non-toxic appearance. He does not appear ill. HENT: Head: Normocephalic. Eyes: Pupils are equal, round, and reactive to light. EOM are normal. Neck: Normal range of motion. Cardiovascular: Normal rate, regular rhythm and normal heart sounds. Pulmonary/Chest: Effort normal and breath sounds normal. No accessory muscle usage. No respiratory distress. He has no wheezes. He has no rhonchi. Dry cough on exam. No respiratory distress or difficulty breathing. Musculoskeletal: Normal range of motion. Neurological: He is alert and oriented to person, place, and time. He is not disoriented. No cranial nerve deficit. Skin: Skin is warm. No rash noted. No erythema. Psychiatric: He has a normal mood and affect. His behavior is normal. Nursing note and vitals reviewed. Diagnostic Testing ED Labs Ordered and Reviewed - No data to display XR CHEST 2V FRONTAL/LAT Final Result IMPRESSION: No acute radiographic abnormality. Retail Office Manager: TAO Transcribe Date/Time: Aug 29 2018 2:19P Dictated by : SANDER VALADEZ MD This examination was interpreted and the report reviewed and electronically signed by: SANDER VALADEZ MD on Aug 29 2018 2:22PM EST Procedures ED Course / Clinical Impression Clinical Impressions as of Aug 29 1504 Bronchitis MDM / Disposition / Plan MDM Clinical and hemodynamically stable at time of discharge. States his symptoms have improved and will be discharged home with prednisone and Robitussin. Patient also had his tetanus updated because he had a puncture wound yesterday unrelated to his illness or complaints today. States he was not up-to-date on his tetanus and requests a tetanus update. The patient was DISCHARGED: Counseled patient regarding suspected diagnosis AND need for follow-up. Discharged home with verbal and written instructions. They were instructed to return as needed for persistent or worsening symptoms or any new concerns. Condition at time of disposition: stable SIGNATURE: CHASE Everett ([place]) 08/29/18 1505 [facility] XR CHEST 2V FRONTAL/LATon XR CHEST 2V FRONTAL/LAT * * *Final Report* * * DATE OF EXAM: Aug 29 2018 2:14PM MDX [id number] - XR CHEST 2V FRONTAL/LAT / PROCEDURE REASON: Cough, new onset * * * * Physician Interpretation * * * * EXAMINATION: CHEST RADIOGRAPH (2 VIEW FRONTAL and LATERAL) CLINICAL HISTORY: Cough, new onset MQ: XC2_5 Comparison: 08/23/2017 RESULT: Lines, tubes, and devices: None. Lungs and pleura: No consolidation. No lung mass. No pleural effusion. Cardiomediastinal silhouette: Normal cardiomediastinal silhouette. Other: . IMPRESSION: No acute radiographic abnormality. Retail Office Manager: PSCB Transcribe Date/Time: Aug 29 2018 2:19P Dictated by : SANDER VALADEZ MD This examination was interpreted and the report reviewed and electronically signed by: SANDER VALADEZ MD on Aug 29 2018 2:22PM EST [id number] [facility] ALLIED HEALTHon 07-18-2018 ALLIED HEALTH HNO ID: [id number] Author: STEVE Shah (Ct) Service: ? Author Type: Clinical Computer System Technician Type: Allied Health Filed: 07/18/2018 2:12 PM Note Text: Radiology Service Progress Note DATE OF SERVICE: July 18, 2018 TIME: 2:11 PM PATIENT IDENTITY VERIFICATION COMPLETED USING TWO (2) METHODS: Patient confirmed name verbally and ID band matches.. PATIENT GENDER DATA: Male PATIENT RELEVANT IMPLANT DATA REVIEWED: Not Applicable ALLERGIES: Reviewed and unchanged CONTRAST ALLERGY: NO. EXAM: CT -CONTRAST INDUCED NEPHROPATHY RISK FACTORS: Not applicable CREATININE: Creatinine Date Value Ref Range Status 07/18/2018 0.73 0.73 - 1.22 mg/dL Final 02/06/2018 0.68 (L) 0.73 - 1.22 mg/dL Final 08/24/2017 0.70 (L) 0.73 - 1.22 mg/dL Final eGFR-All Other Races Date Value Ref Range Status 07/18/2018 >60 . Final Comment: eGFR (Estimated GFR) Units of measure: mL/min/1.73 meters squared eGFR is derived from the reexpressed MDRD Study equation using the following parameters: serum creatinine, age, gender and race. The creatinine assay has been calibrated to be traceable to IDMS. An eGFR <60 mL/min/1.73m2 for >3 months is consistent with chronic kidney disease. Refer to KDOQI guidelines for clinical interpretation. In patients with unstable renal function, e.g. those with acute kidney injury, the eGFR may not accurately reflect actual GFR. eGFR- Date Value Ref Range Status 07/18/2018 >60 Final P.O.C.T. RESULTS: N/A July 18, 2018 TREATMENT: N/A PERIPHERAL IV DATA: Inpatient - refer to LDA documentation RADIOLOGY DEPARTMENT: CT; Exam(s) Completed: Abdomen/Pelvis SIGNATURE: Vi Jeff, STEVE PATIENT NAME: Elijah Wylie Jr. DATE: July 18, 2018 TIME: 2:11 PM Normal [facility] CBC and Differentialon 07-18 Abs Baso 0.09 k/uL Normal <0.11 [facility] Comment on above: Performed By: #### C BCDIF, CMP, LIPA, MG1 #### [facility] [address] [facility] [phone] Abs Emmet 0.61 k/uL Normal <0.87 [facility] Comment on above: Performed By: #### C BCDIF, CMP, LIPA, MG1 #### [facility] [address] [facility] [phone] Abs Neut 8.64 k/uL High 1.45-7.50 [facility] Comment on above: Performed By: #### C BCDIF, CMP, LIPA, MG1 #### [facility] [address] [phone] Basophils/100 WBC (Bld) 0.8 % Normal [facility] Comment on above: Performed By: #### C BCDIF, CMP, LIPA, MG1 #### [facility] [address] [facility] [phone] Eosinophils (Bld) [#/Vol] 0.20 10*3/uL Normal <0.46 [facility] Comment on above: Performed By: #### C BCDIF, CMP, LIPA, MG1 #### [facility] [address] [place] [phone] Eosinophils/100 WBC (Bld) 1.7 % Normal [facility] Comment on above: Performed By: #### C BCDIF, CMP, LIPA, MG1 #### [facility] [address] [place], [place] [phone] Erythrocyte distribution width (RBC) [Ratio] 14.5 % Normal 11.5-15.0 [facility] Comment on above: Performed By: #### C BCDIF, CMP, LIPA, MG1 #### [facility] [address] [place] [address] Hematocrit (Bld) [Volume fraction] 47.8 % Normal 39.0-51.0 [facility] Comment on above: Performed By: #### C BCDIF, CMP, LIPA, MG1 #### [facility] [address] [place] [address] Hemoglobin (Bld) [Mass/Vol] 15.9 g/dL Normal 13.0-17.0 [facility] Comment on above: Performed By: #### C BCDIF, CMP, LIPA, MG1 #### [facility] [address] [place] [address] Lymphocytes (Bld) [#/Vol] 2.07 10*3/uL Normal 1.00-4.00 [facility] Comment on above: Performed By: #### C BCDIF, CMP, LIPA, MG1 #### [facility] [address] [place], [place] [phone] Lymphocytes/100 WBC (Bld) 17.8 % Normal [facility] Comment on above: Performed By: #### C BCDIF, CMP, LIPA, MG1 #### [facility] [address] [place] [address] MCH (RBC) [Entitic mass] 31.1 pG Normal 26.0-34.0 [facility] Comment on above: Performed By: #### C BCDIF, CMP, LIPA, MG1 #### [facility] [address] [place], [place] [phone] MCHC (RBC) [Mass/Vol] 33.3 g/dL Normal 30.5-36.0 [facility] Comment on above: Performed By: #### C BCDIF, CMP, LIPA, MG1 #### [facility] [address] [place], [place] [phone] MCV (RBC) [Entitic vol] 93.4 fL Normal 80.0-100.0 [facility] Comment on above: Performed By: #### C BCDIF, CMP, LIPA, MG1 #### [facility] [address] [place], [place] [phone] Monocytes/100 WBC (Bld) 5.3 % Normal [facility] Comment on above: Performed By: #### C BCDIF, CMP, LIPA, MG1 #### [facility] [address] [place], [place] [phone] Neutrophils/100 WBC (Bld) 74.4 % Normal [facility] Comment on above: Performed By: #### C BCDIF, CMP, LIPA, MG1 #### [facility] [address] [place] [address] Platelet mean volume (Bld) [Entitic vol] 12.1 fL Normal 9.0-12.7 [facility] Comment on above: Performed By: #### C BCDIF, CMP, LIPA, MG1 #### [facility] [address] [place], [place] [phone] Platelets (Bld) [#/Vol] 252 10*3/uL Normal 150-400 [facility] Comment on above: Performed By: #### C BCDIF, CMP, LIPA, MG1 #### [facility] [address] [place], [place] [phone] RBC (Bld) [#/Vol] 5.12 10*6/uL Normal 4.20-6.00 [facility] Comment on above: Performed By: #### C BCDIF, CMP, LIPA, MG1 #### [facility] [address] [place], [place] [phone] WBC (Bld) [#/Vol] 11.61 10*3/uL High 3.70-11.00 [facility] Comment on above: Performed By: #### C BCDIF, CMP, LIPA, MG1 #### [facility] [address] [place] [address] CT ABD/PEL W IVCONon 019 CT ABD/PEL W IVCON * * *Final Report* * * DATE OF EXAM: Jul 18 2018 2:17PM [facility] 0530 - CT ABD/PEL W IVCON / PROCEDURE REASON: Abd pain, fever, no recent surgery * * * * Physician Interpretation * * * * EXAMINATION: CT ABDOMEN AND PELVIS WITH IV CONTRAST CLINICAL HISTORY: Abd pain, fever, no recent surgery, SBO intermittent or low-grade suspected ABD PAIN GASTRIC ULERS HX OF BY PASS history of previous gastric bypass surgery TECHNIQUE: CT of the abdomen and pelvis was performed using standard technique, scanning from just above the dome of the diaphragm to the symphysis pubis. MQ: CTAP_3 Contrast: IV: 150 ml of Omnipaque 300 Oral: 450 ml of 50ML Omnipaque [address] Radiation dose: Integrated Dose-length product (DLP) for this visit = 724 mGy*cm. CT Dose Reduction Employed: Automated exposure control (AEC) COMPARISON: 02/06/2018 RESULT: CT ABDOMEN: Liver: No mass. Homogeneous texture. Biliary: No ductal dilatation is seen. Gallbladder is unremarkable. Spleen: Spleen is unremarkable. Pancreas: No mass or duct dilation. Adrenals: Adrenal glands are unremarkable. Kidneys: No mass, calculus or hydronephrosis is seen. GI tract: Mild dilatation of the proximal jejunum Mild diverticulosis no evidence of diverticulitis. Large amount of fecal debris throughout the ascending transverse and proximal descending colonic regions. The appendix image 119 is visualized and is unremarkable. Evidence of previous Monica-en-Y surgery Lymph nodes: Subcentimeter lymph nodes in the lumbar region again noted Mesentery/Peritoneum: No ascites or mass. Vasculature: No evidence of dilatation of the abdominal aorta. CT PELVIS: Pelvis: No mass, ascites or fluid collections. Bones/Soft Tissues: No significant findings identified. Lower thorax: Unremarkable. IMPRESSION: 1. Mild dilatation of the proximal jejunum again noted. 2. Evidence of previous Monica-en-Y surgery 3. Otherwise unremarkable Retail Office Manager: TAO Transcribe Date/Time: Jul 18 2018 2:32P Dictated by : USSI BENNETT DO This examination was interpreted and the report reviewed and electronically signed by: SUSI BENNETT DO on Jul 18 2018 2:50PM EST [id number] Normal [facility] Comp Metabolic Panelon 07-18 Albumin [Mass/Vol] 4.4 g/dL Normal 3.9-4.9 [facility] Comment on above: Performed By: #### C BCDIF, CMP, LIPA, MG1 #### [facility] [address] [facility] [phone] ALP [Catalytic activity/Vol] 98 U/L Normal 38-113 [facility] Comment on above: Performed By: #### C BCDIF, CMP, LIPA, MG1 #### [facility] [address] [facility] [phone] ALT [Catalytic activity/Vol] 13 U/L Normal 10-54 [facility] Comment on above: Performed By: #### C BCDIF, CMP, LIPA, MG1 #### [facility] [address] [facility] [phone] Anion gap [Moles/Vol] 11 mmol/L Normal 9-18 [facility] Comment on above: Performed By: #### C BCDIF, CMP, LIPA, MG1 #### [facility] [address] [facility] [phone] AST [Catalytic activity/Vol] 14 U/L Normal 14-40 [facility] Comment on above: Performed By: #### C BCDIF, CMP, LIPA, MG1 #### [facility] [address] [facility] [phone] Bilirubin [Mass/Vol] 0.7 mg/dL Normal 0.2-1.3 [facility] Comment on above: Performed By: #### C BCDIF, CMP, LIPA, MG1 #### [facility] [address] [facility] [phone] Calcium [Mass/Vol] 9.3 mg/dL Normal 8.5-10.2 [facility] Comment on above: Performed By: #### C BCDIF, CMP, LIPA, MG1 #### [facility] [address] [facility] [phone] Chloride [Moles/Vol] 100 mmol/L Normal 97-105 [facility] Comment on above: Performed By: #### C BCDIF, CMP, LIPA, MG1 #### [facility] [address] [facility] [phone] CO2 [Moles/Vol] 26 mmol/L Normal 22-30 [facility] Comment on above: Performed By: #### C BCDIF, CMP, LIPA, MG1 #### [facility] [address] [facility] [phone] Creatinine [Mass/Vol] 0.73 mg/dL Normal 0.73-1.22 [facility] Comment on above: Performed By: #### C BCDIF, CMP, LIPA, MG1 #### [facility] [address] [facility] [phone] eGFR- Amer. >60 Normal [facility] Comment on above: Performed By: #### C BCDIF, CMP, LIPA, MG1 #### [facility] [address] [facility] [phone] GFR/1.73 sq M predicted among non-blacks MDRD (S/P/Bld) [Vol rate/Area] mL/min/{1.73_m2} Normal [facility] Comment on above: Result Comment: eGFR (Estimated GFR) Units of measure: mL/min/1.73 meters squared eGFR is derived from the reexpressed MDRD Study equation using the following parameters: serum creatinine, age, gender and race. The creatinine assay has been calibrated to be traceable to IDMS. An eGFR <60 mL/min/1.73m2 for >3 months is consistent with chronic kidney disease. Refer to KDOQI guidelines for clinical interpretation. In patients with unstable renal function, e.g. those with acute kidney injury, the eGFR may not accurately reflect actual GFR. Performed By: #### C BCDIF, CMP, LIPA, MG1 #### [facility] [address] [facility] [phone] Glucose [Mass/Vol] 96 mg/dL Normal 74-99 [facility] Comment on above: Result Comment: The [place] Diabetes Association (ADA) provides guidance for cutoff values for fasting glucose and random glucose. The ADA defines fasting as no caloric intake for at least 8 hours. Fasting plasma glucose results between 100 to 125 mg/dL indicate increased risk for diabetes (prediabetes). Fasting plasma glucose results greater than or equal to 126 mg/dL meet the criteria for diagnosis of diabetes. In the absence of unequivocal hyperglycemia, results should be confirmed by repeat testing. In a patient with classic symptoms of hyperglycemia or hyperglycemic crisis, random plasma glucose results greater than or equal to 200 mg/dL meet the criteria for diagnosis of diabetes. Reference: Standards of Medical Care in Diabetes 2016, [place] [employer] Association. Diabetes Care. 2016.39(Suppl 1). Performed By: #### C BCDIF, CMP, LIPA, MG1 #### [facility] [address] [place] [address] Potassium [Moles/Vol] 4.2 mmol/L Normal 3.7-5.1 [facility] Comment on above: Performed By: #### C BCDIF, CMP, LIPA, MG1 #### [facility] [address] [place] [address] Protein [Mass/Vol] 7.5 g/dL Normal 6.3-8.0 [facility] Comment on above: Performed By: #### C BCDIF, CMP, LIPA, MG1 #### [facility] [address] [place] [address] Sodium [Moles/Vol] 137 mmol/L Normal 136-144 [facility] Comment on above: Performed By: #### C BCDIF, CMP, LIPA, MG1 #### [facility] [address] [place] [address] Urea nitrogen [Mass/Vol] 10 mg/dL Normal 9-24 [facility] Comment on above: Performed By: #### C BCDIF, CMP, LIPA, MG1 #### [facility] [address] [place], [place] [phone] ED NOTEon 07-18-2018 ED NOTE HNO ID: [id number] Author: Jenn EastRn) YOLI Nguyen Service: Nursing Author Type: Registered Nurse Type: ED Notes Filed: 07/18/2018 11:45 AM Note Text: Patient presents with left side abdominal pain x 2 weeks. He is unable to eat and drink. Patient states that he had an ulcer rupture last year and the pain feels the same. Normal [facility] ED NOTE HNO ID: [id number] Author: Bette EastRn) YOLI Crawford Service: Nursing Author Type: Registered Nurse Type: ED Notes Filed: 07/18/2018 7:25 PM Note Text: Pt accepted at main campus. Awaiting transport in approx 2 hours. has gone to get pt food, as he is allowed to eat up until midnight, per LYSSA Farris. [facility] ED PROV NOTEon 07-18-2018 ED PROV NOTE HNO ID: [id number] Author: LYSSA Pereira (Pa) Service: Emergency Medicine Author Type: Physician Automotive Parts Salesperson Type: ED Provider Notes Filed: 07/18/2018 8:37 PM Note Text: Attestation signed by Richie Villalpando III, MD at 07/19/2018 9:13 AM Attending Note I have personally performed a face to face assessment of the patient and have reviewed the PA/SUPERVISOR PLEATING note. My pruitt findings include: This is a 43-year-old male with a history of gastric bypass who presents for complaints of unilateral left-sided sharp abdominal pain is gotten worse over 2 weeks. It is reproducible on examination. He has had a history of a perforated marginal side ulcer, his subsequent CT is negative. An appointment of signout, discussion was had with the oncoming attending that the case would be discussed with the patient's bariatric surgeon, barring any other abnormalities patient will likely be discharged home given his well appearance here. Do not suspect ACS given reproducibility on examination. Signature: Richie Villalpando III, MD Date: 07/19/2018 Time: 9:11 AM ED Provider Note Patient Name: Elijah Wylie SERVICE DATE: 07/18/18 History Patient presents with: Flank Pain This is a 43-year-old male with history of ovarian Y gastric bypass in 2013, peptic ulcer disease, and hypertension who presents to the emergency department complaining of sharp left-sided abdominal pain for the past 2 weeks that's gone worse today. He states it's worse when he eats and drinks, and its gone to the point where he is not able to eat because of the pain. He is concerned that he may have an ulcer that ruptured, because he had a ruptured ulcer last year and the pain feels similar, just not quite as intense. The pain is constant worse when he eats. He is not taking anything for the pain. He did have a fever this morning of 101?F. He took Tylenol and his fever went down. He denies nausea, vomiting, constipation, diarrhea, melena, hematochezia, dysuria, urinary frequency or urgency, hematuria, lightheadedness, dizziness, chest pain or shortness of breath. PAST MEDICAL HISTORY Diagnosis Date - Dysmetabolic syndrome X resolved with wt loss - History of Monica-en-Y gastric bypass 300 # wt loss - Lumbago - Morbid obesity (HCC) 08-05-10 stated BMI 51.83 Ht: 78 Wt: 448 lbs - Other and unspecified hyperlipidemia resolved with wt loss - Psychiatric disorder anxiety, depression - PUD (peptic ulcer disease) - Unspecified essential hypertension resolved with wt loss PAST SURGICAL HISTORY Procedure Laterality Date - GASTRIC BYPASS HX 04/13/11 Laparoscopic Monica-en-Y gastric bypass - ORTHOPEDICS SURGERY HX 11-26-2013 left shoulder scope - PAST SURGICAL HISTORY OF 2012 left hand boxer fracture repair FAMILY HISTORY Problem Relation Age of Onset - Diabetes Mother Social History Tobacco Use - Smoking status: Current Every Day Smoker Packs/day: 1.00 Years: 21.00 Pack years: 21.00 Types: Cigarettes Last attempt to quit: 05/16/2009 Years since quittin.1 - Smokeless tobacco: Never Used Substance and Sexual Activity - Alcohol use: No - Drug use: No - Sexual activity: Not on file ALLERGIES Allergen Reactions - Ceclor [Cefaclor] Hives, Itching, Anaphylaxis Early 20s - Sulfa (Sulfonamide * Rash - Bactrim [Sulfametho* Other: See Comments Skin sloughing - Nsaids (Non-Steroid* Other: See Comments Due to hx of gastric bipass Review of Systems Constitutional: Positive for appetite change and fever. Negative for chills and fatigue. HENT: Negative for congestion, rhinorrhea, sneezing and sore throat. Respiratory: Negative for cough, shortness of breath and wheezing. Cardiovascular: Negative for chest pain and palpitations. Gastrointestinal: Positive for abdominal pain. Negative for blood in stool, constipation, diarrhea, nausea and vomiting. Genitourinary: Negative for difficulty urinating, dysuria, flank pain, frequency, hematuria and urgency. Musculoskeletal: Negative for back pain, gait problem, neck pain and neck stiffness. Skin: Negative for rash. Neurological: Negative for dizziness, syncope, weakness, light-headedness and headaches. Hematological: Does not bruise/bleed easily. Physical Exam BP 137/68 Pulse 49 Temp (Src) 97.6 (Oral) Resp 18 Ht 6' 6 (1.98m) Wt 221 lb (100.2kg) SpO2 98% BMI 25.54 kg/(m2). Physical Exam Constitutional: He is oriented to person, place, and time. He appears well-developed and well-nourished. Non-toxic appearance. He does not appear ill. No distress. HENT: Head: Normocephalic and atraumatic. Mouth/Throat: Oropharynx is clear and moist. No oropharyngeal exudate. Eyes: No scleral icterus. Cardiovascular: Normal rate, regular rhythm and normal heart sounds. Pulmonary/Chest: Effort normal and breath sounds normal. Abdominal: Soft. He exhibits no distension and no mass. There is no CVA tenderness. Well-healed surgical incisions. No erythema or edema or obvious hernia. Mild tenderness to palpation in epigastric region and left upper quadrant. No rebound, guarding, or rigidity. Neurological: He is alert and oriented to person, place, and time. Skin: Skin is warm and dry. No rash noted. No pallor. Nursing note and vitals reviewed. Diagnostic Testing ED Labs Ordered and Reviewed CBC + DIFF - Abnormal; Notable for the following components: Result Value Ref Range WBC 11.61 (*) 3.70 - 11.00 k/uL Abs Neut (ANC) 8.64 (*) 1.45 - 7.50 k/uL All other components within normal limits COMP METABOLIC PANEL MAGNESIUM BLD LIPASE BLD URINALYSIS OCCULT BLD EXAM-DIAG Procedures ED Course / Clinical Impression Clinical Impressions as of Jul 18 2036 Pain of upper abdomen MDM / Disposition / Plan This is a 43-year-old male with history of ovarian Y gastric bypass in 2013, peptic ulcer disease, and hypertension who presents to the emergency department complaining of sharp left-sided abdominal pain for the past 2 weeks that's gone worse today. Patient is hemodynamically stable, afebrile, well-appearing. On exam, he does have tenderness to palpation in the epigastric region and left upper quadrant, but no peritoneal signs. Remainder of exam is unremarkable as documented. Differentials include but are not limited to peptic ulcer disease, hernia, cholecystitis, gastritis, pancreatitis. Patient was given morphine for pain initially. Urinalysis with no evidence of UTI. Fecal occult blood test was negative. CMP unremarkable. Magnesium within normal limits, lipase within normal limits. CBC with mild leukocytosis at 11.61. CT of the abdomen and pelvis demonstrates mild dilation of the proximal jejunum, but otherwise unremarkable with no acute abnormality. On reassessment, patient is noted to be in further pain. He is given a GI cocktail as well as Dilaudid. He did have some improvement of his pain with this. I attempted multiple times to contact the patient's bariatric surgeon at [facility] (Dr. Patiño), but I was unable to contact him. Due to his persistent pain and that I am unable to contact his surgeon, he will be transferred to [facility] for evaluation by the bariatric surgery team and for further pain control. He did speak to the on-call bariatric surgeon, Dr. Mensah. He gladly accepted the patient to the [facility]. He stated they will do an EGD in the morning and that the patient likely has a new ulcer. Dr. Patiño will be the accepting physician. Patient is amenable with transfer to [facility]. He was transferred in stable condition. Medications iv contrast (radiology procedure) (not administered) And enteric contrast (radiology procedure) (not administered) morphine 4 mg injection (4 mg INTRAVENOUS Given 07/18/18 1238) ondansetron (PF) 4 mg injection (ZOFRAN) (4 mg INTRAVENOUS Given 07/18/18 1235) HYDROmorphone HCl 0.5 mg injection (DILAUDID) (0.5 mg INTRAVENOUS Given 07/18/18 8480) aluminum-magnesium hydroxide-simethicone 200-200-20 mg/5 mL 30 mL (MAALOX,MYLANTA,MAG-AL PLUS) (30 mL ORAL Given 07/18/181929) And lidocaine viscous 2 % 15 mL (XYLOCAINE) (15 mL ORAL Given 07/18/181929) HYDROmorphone HCl 0.5 mg injection (DILAUDID) (0.5 mg INTRAVENOUS Given 07/18/181932) The patient was TRANSFERRED to: [facility] Condition at time of disposition: improved and stable SIGNATURE: CHASE Pereira (Lyssa) LYSSA Farris 07/18/182036 Richie Villalpando III, MD 07/19/18912 Normal [facility] Lipaseon 07-18-2018 Lipase [Catalytic activity/Vol] 60 U/L Normal 16-61 [facility] Comment on above: Performed By: #### C BCDIF, CMP, LIPA, MG1 #### [facility] [address] [place] [address] Magnesiumon 07-18-2018 Magnesium [Mass/Vol] 1.9 mg/dL Normal 1.7-2.3 [facility] Comment on above: Performed By: #### C BCDIF, CMP, LIPA, MG1 #### [facility] [address] [place] [address] Occult Blood Diag.on 019 Occult Blood Diag. Negative [facility] Comment on above: Performed By: #### O BDX #### [facility] [address] [place] [address] Occult Blood Source: Stool Normal [facility] Comment on above: Performed By: #### O BDX #### [facility] [address] [place] [address] Urinalysison 07-18-2018 Bilirubin, Urine Negative Normal Negative [facility] Comment on above: Performed By: #### U A #### [facility] [address] [place] [address] Clarity (U) Clear Normal Clear [facility] Comment on above: Performed By: #### U A #### [facility] [address] [place] [address] Color (U) Yellow Normal Yellow [facility] Comment on above: Performed By: #### U A #### [facility] [address] [address] Glucose Ql (U) Negative Normal Negative [facility] Comment on above: Performed By: #### U A #### [facility] [address] [address] Hemoglobin/Blood,Ur Negative Normal Negative [facility] Comment on above: Performed By: #### U A #### [facility] [address] [address] Ketones Ql (U) Negative Normal Negative [facility] Comment on above: Performed By: #### U A #### [facility] [address] [address] Leukest Negative Normal Negative [facility] Comment on above: Performed By: #### U A #### [facility] [address] [address] Nitrite Ql (U) Negative Normal Negative [facility] Comment on above: Performed By: #### U A #### [facility] [address] [address] pH (Bld) 6.5 Normal 5.0-8.0 [facility] Comment on above: Performed By: #### U A #### [facility] [address] [place] [address] Protein (U) [Mass/Vol] Negative Normal Negative [facility] Comment on above: Performed By: #### U A #### [facility] [address] [place] [address] Specific [place], Ur <=1.005 Normal 1.001-1 .02 9 [facility] Comment on above: Performed By: #### U A #### [facility] [address] [address] Urobilinogen Qn (U) 0.2 Normal 0.2-1.0 [facility] Comment on above: Performed By: #### U A #### [facility] [address] [place] [address] HISTORY PHYSICALon 8 HISTORY PHYSICAL HNO ID: [id number] thor: Fili Bhandari: General SurgeryAuthor Type: PhysicianType: HANDPFiled: 02/10/2018 5:09 PMNote Text:PROCEDURAL SEDATION HISTORY AND PHYSICAL EXAMSERVICE DATE: 02/10/2018SERVICE TIME: 5:03 PMSubjectiveHPI: This is a 42 year old male who presents for upper endoscopyPAST ANESTHESIA HISTORY: No history of adverse eventPAST MEDICAL HISTORYDiagnosis Date- Dysmetabolic syndrome X resolved with wt loss- History of Monica-en-Y gastric bypass 300 # wt loss- Lumbago- Morbid obesity (HCC) 08-05-10 stated BMI 51.83 Ht: 78 Wt: 448 lbs- Other and unspecified hyperlipidemia resolved with wt loss- Psychiatric disorder anxiety, depression- PUD (peptic ulcer disease)- Unspecified essential hypertension resolved with wt lossPAST SURGICAL HISTORYProcedure Laterality Date- GASTRIC BYPASS HX 04/13/11 Laparoscopic Monica-en-Y gastric bypass- ORTHOPEDICS SURGERY HX 11-26-2013 left shoulder scope- PAST SURGICAL HISTORY OF 2012 left hand boxer fracture repairPrior to Admission medications as of 02/10/18 1544Medication Sig Last Dose Takingpantoprazole DR (PROTONIX) 40 mg tablet Take 1 tablet by mouth twicedaily. 02/09/2018 at Unknown time Yessucralfate (CARAFATE) 100 mg/mL suspension Take 10 mL by mouth four timesdaily. 02/09/2018 at Unknown time Yesscopolamine (TRANSDERM-SCOP) 1 mg over 3 days Apply 1 Patch as directedevery 72 hours. Unknown at Unknown timenicotine (NICODERM) 21 mg/24 hr Apply 1 Patch as directed once daily.Unknown at Unknown timeALPRAZolam (XANAX) 1 mg tablet 0.5 mg at bedtime as needed. Unknown atUnknown timetraZODone (DESYREL) 50 mg tablet Take 50 mg by mouth daily at bedtime.Unknown at Unknown timecyclobenzaprine (FLEXERIL) 10 mg tablet Take 1 tablet by mouth every 8hours as needed for Muscle Spasm. Unknown at Unknown timediazepam (VALIUM) 5 mg tablet Take 1 tablet by mouth every 8 hours asneeded (muscle spasms). Unknown at Unknown timeCALCIUM CITRATE, BULK, MISC Unknown at Unknown timeMULTIVIT ANDMINERALS/FERROUS FUM (MULTI VITAMIN ORAL) Take by mouth.Unknown at Unknown timeAscorbic Acid (VITAMIN C) 1,000 mg tablet Take 1,000 mg by mouth oncedaily. Unknown at Unknown timeALLERGIESAllergen Reactions- Ceclor [Cefaclor] Hives, Itching, Anaphylaxis Early 20s- Sulfa (Sulfonamide * Rash- Bactrim [Sulfametho* Other: See Comments Skin sloughing- Nsaids (Non-Steroid* Other: See Comments Due to hx of gastric bipassObjectivePHYSICAL EXAM: The remainder of the physical exam is noncontributory.AIRWAY: [id number]: Negative, Lungs clear to auscultation, Good diaphragmatic excursionCARDIAC: RRRAssessment/PlanASA Class: IIPrincipal Problem: Epigastric abdominal pain POA: Unknown Assessment AND Plan: upper endoscopyResolved Problems: * No resolved hospital problems. *Provisional Diagnosis/Treatment Plan: upper endoscopySIGNATURE: Fili Celeste MD PATIENT NAME: Elijah Wylie Jr.DATE: February 10, 2018 : 5:02 PM PAGER: [facility] NURSING PROGon 02-10-2018 Protein mass conc HNO ID: [id number] thor: Felictia (Rn) Jeff Singhice: (none)Author Type: Registered NurseType: Nursing Progress NoteFiled: 02/10/2018 3:54 PMNote Text: Nursing Progress NotePatient Name: Elijah Wylie Jr. Location: -ENDOSCOPY POOL/TUAN End* Bowel sounds active, abdomen flat and firm.This note was completed by: Felicita Singh RN [facility] Protein mass conc HNO ID: [id number] thor: NICKI Mata Lpnervice: NursingAuthor Type: LICENSED NURSEType: Nursing Progress NoteFiled: 02/10/2018 5:54 PMNote Text: Nursing Progress NotePatient Name: Elijah Wylie Jr. Location: TUAN-ENDOSCOPY POOL/TUAN End* Daily Note:Abdomen soft with active bowel sounds.This note was completed by: Luz Maria Jiménez LPN [facility] PT EDon 02-10-2018 PT ED HNO ID: [id number] thor: Felicita (Rn) Francisco, ITALIAervice: (none)Author Type: Registered NurseType: Patient EducationFiled: 02/10/2018 3:51 PMNote Text:PATIENT EDUCATION TOPIC: PROCEDURE / SURGERY: Post-op Teaching: MedAdministration and Symptom ManagementPATIENT NAME: Elijah Wylie Jr. LOCATION: -ENDOSCOPY POOL/TUAN End*READINESS TO LEARNCOGNITIVE ABILITY: Alert and orientedMOTIVATION TO LEARN: EagerFAMILY SUPPORT: High - Very involved in pt careINSTRUCTION PROVIDED TO: Patient and family memberPATIENT LEARNS BEST BY: Multiple MethodsFACTORS AFFECTING LEARNING: NonePHYSICAL LIMITATIONS AFFECTING LEARNING: NoneLEARNING RESPONSEDIAGNOSIS: ADULT:PATIENT/FAMILY RESPONSE: Verbalizes understanding of: [id number] rect action to take to follow pre-operative instructionsMETHOD OF INSTRUCTION: Verbal instructionFOLLOW-UP PLAN: Patient instructed to call with any further issuesINSTRUCTIONAL AIDS USED: NASUPPLEMENTAL MATERIAL PROVIDED TO PATIENT: NoneREFERRAL (RECOMMENDATION): NoneElectronically Signed By: Felicita Singh RN [facility] PT ED HNO ID: [id number] thor: NICKI Mata Lpnervice: NursingAuthor Type: LICENSED NURSEType: Patient EducationFiled: 02/10/2018 5:55 PMNote Text:PATIENT EDUCATION TOPIC: PROCEDURE / SURGERY: Procedure/Surgery:Post Procedure Teaching: Med Administration and Symptom ManagementPATIENT INFORMATION: Patient StatusPlan of CarePATIENT NAME: Elijah Wylie Jr. LOCATION: -ENDOSCOPY POOL/TUAN End*READINESS TO LEARNCOGNITIVE ABILITY: Alert and orientedMOTIVATION TO LEARN: EagerFAMILY SUPPORT: None - Unavailable/disinterestedINST RUCTION PROVIDED TO: Patient and Patient and friend/otherPATIENT LEARNS BEST BY: Written Instruction - Hand-outsVerbal InstructionFACTORS AFFECTING LEARNING: NonePHYSICAL LIMITATIONS AFFECTING LEARNING: NoneLEARNING RESPONSEDIAGNOSIS: ADULT: Ankylosing SpondylitisPATIENT/FAMILY RESPONSE: Verbalizes understanding of: [id number]-Jw rrect actions to take to reduce post procedurecomplicationsMETHOD OF INSTRUCTION: Written instruction - handoutsVerbal instructionFOLLOW-UP PLAN: Patient instructed to call with any further issuesINSTRUCTIONAL AIDS USED: NASUPPLEMENTAL MATERIAL PROVIDED TO PATIENT: NoneREFERRAL (RECOMMENDATION): NoneElectronically Signed By: Luz Maria Jiménez LPN [facility] HOSPon 02-07-2018 HOSP Patient:Smooth Wylie Estevan Duff.MRN: Height:6' 6 (1.981 m)Weight:225 lb (102.059 kg)Outpatient Medications as of 02/10/18:pantoprazole DR (PROTONIX) 40 mg tabletsucralfate (CARAFATE) 100 mg/mL suspensionscopolamine (TRANSDERM-SCOP) 1 mg over 3 daysnicotine (NICODERM) 21 mg/24 hrALPRAZolam (XANAX) 1 mg tablettraZODone (DESYREL) 50 mg tabletcyclobenzaprine (FLEXERIL) 10 mg tabletdiazepam (VALIUM) 5 mg tabletCALCIUM CITRATE, BULK, MISCMULTIVIT ANDMINERALS/FERROUS FUM (MULTI VITAMIN ORAL)Ascorbic Acid (VITAMIN C) 1,000 mg tabletAdmission/Clinic Administered Medications as of 02/10/18:Patient has no admission medications.Problem List:HTN (hypertension) [I10]Hyperlipidemia [E78.5]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]Dietary surveillance and counseling [Z71.3]Overweight(278.02) [E66.3]Displacement of lumbar intervertebral disc without myelopathy [M51.26]Peptic ulcer [K27.9]Perforated duodenal bulb ulcer (HCC) [K26.5]UGI bleed [K92.2]Epigastric abdominal pain [R10.13]Allergies:Ceclor [Cefaclor]Sulfa (Sulfonamide Antibiotics)Bactrim [Sulfamethoxazole-Trimethopri m]Nsaids (Non-Steroidal Anti-Inflammatory Drug)Date Verified: 02/10/18Lab ValuesLab Value Units Date High LowPOTA* 4.3 mmol/L 02/06/2018 5.1 3.7HEMA* 45.1 % 02/06/2018 51.0 39.0Progress Notes (RADIO CT SCAN [facility]):STEVE Shah, CT 02/06/2018 2:44 PM Sign at close encounter Radiology Service Progress NotePATIENT NAME: Elijah Wylie Jr. OF SERVICE: February 06, 2018TIME: 2:43 PMPATIENT IDENTITY VERIFICATION COMPLETED USING TWO (2) METHODS: Patientconfirmed name verbally and ID band matches..PATIENT GENDER DATA: MalePATIENT RELEVANT IMPLANT DATA REVIEWED: YesCONTRAST INDUCED NEPHROPATHY RISK FACTORS: Not applicableCREATININE:Creatini neDate Value Ref Range Pvpylm9002/06/2018 0.68 (L) 0.73 - 1.22 mg/dL Final08/24/2017 0.70 (L) 0.73 - 1.22 mg/dL Final08/23/2017 0.73 0.73 - 1.22 mg/dL Final eGFR-All Other RacesDate Value Ref Range Xosozs6102/06/2018 >60 . FinalComment:eGFR (Estimated GFR) Units of measure: mL/min/1.73 meters squaredeGFR is derived from the reexpressed MDRD Study equation using the followingparameters: serum creatinine, age, gender and race. The creatinine assay hasbeen calibrated to be traceable to IDMS.An eGFR <60 mL/min/1.73m2 for >3 months is consistent with chronic kidneydisease. Refer to KDOQI guidelines for clinical interpretation.In patients with unstable renal function, e.g. those with acute kidney injury,the eGFR may not accurately reflect actual GFR. eGFR- AmericanDate Value Ref Range Tpxhro1202/06/2018 >60 Final P.O.C.T. RESULTS: N/A February 06, 2018RADIOLOGIST NOTIFIED?: ShaquilleERGIES: Reviewed and unchangedCONTRAST ALLERGY: NO.PERIPHERAL IV ACCESS: Inpatient: see LDA documentationRADIOLOGY DEPARTMENT: CT; Exam(s) Completed: Abdomen/PelvisSIGNED BY: Vi Jeff CTSeptember 2017 2:43 PM [facility] Social History Date Type Detail Facility Start: 01-24-2023 End: 01-26-2023 History of tobacco use Current smoker [facility] Start: 05-13-2022 End: 06-01-2022 Sex Assigned At Male [facility] [employer] Other Start: 09-08-2021 History SDOH Alcohol Comment social [employer] Work Phone: Start: 08-29-2021 End: 12-02-2021 Exposure to SARS-CoV-2 (event) Not sure [facility] [employer] Start: 06-24-2021 Tobacco smoking status Heavy t obacco smoker (finding) [facility] Start: 07-03-2019 End: 02-24-2021 Tobacco smoking status NVIS Former smoker [employer] Start: 10-26-2020 Alcohol Comment [employer] Work Phone: Start: 10-15-2020 End: 03-23-2022 Alcohol intake Current drinker of alcohol (finding) [employer] Phone: Start: 07-03-2019 End: 02-19-2020 Tobacco use and exposure [facility] [employer] Start: 07-11-2019 [facility] intake [facility] Start: 04-13-2019 End: 05-13-2022 Tobacco smoking status [facility] Current every day smoker [employer] Start: 04-13-2019 End: 06-01-2022 Cigarettes smoked current (pack per day) - Reported [facility] Start: 04-13-2019 End: 05-13-2022 Alcohol intake Current non-drinker of alcohol (finding) [facility] [employer] Start: 1975 Sex Assigned At Not on file [place] [facility] [place] Start: 1975 Sex Assigned At Male [facility] End: 06-17-2019 History of tobacco use [facility] SARS-CoV -2 (event) Unable to assess [facility] PHQ[facility] Score 0 Caleb oshea Vital Signs Date Time Vital Sign Value Performing Clinician Facility 04-13-2023 13:50-0500 Body height 191.13 cm Meng Mathews Other [employer] Other 04-04-2023 09:00-0500 Body height 191.13 cm Dimas Ferrer Other [employer] Other 04-04-2023 09:00-0500 Body mass index (BMI) [Ratio] 31.09 kg/m2 Dimas Ferrer Other [employer] Other 04-04-2023 09:00-0500 Body weight 113.58 kg Dimas Ferrer Other [employer] Other 04-04-2023 09:00-0500 SaO2% (BldA) [Mass fraction] 97 % Dimas Diazky Other [employer] Other 03-31-2023 08:40-0500 Body height 191.13 cm Phoenix Chavez Other [employer] Other 03-31-2023 08:40-0500 Body mass index (BMI) [Ratio] 30.79 kg/m2 Phoenix Chavez Other [employer] Other 03-31-2023 08:40-0500 Body weight 112.49 kg Phoenix Chavez Other [employer] Other 03-31-2023 08:40-0500 Diastolic blood pressure 66 mm[Hg] Phoenix Chavez Other [employer] Other 03-31-2023 08:40-0500 SaO2% (BldA) [Mass fraction] 97 % Phoenix Chavez Other [employer] Other 03-31-2023 08:40-0500 Systolic blood pressure 112 mm[Hg] Phoenix Chavez Other [employer] Other 02-10-2023 11:00-0400 Body height 191.13 cm [facility] Other [employer] Other 02-10-2023 11:00-0400 Body mass index (BMI) [Ratio] 30.66 kg/m2 [facility] Other [employer] Other 02-10-2023 11:00-0400 Body weight 112.04 kg [facility] Other [employer] Other 02-10-2023 11:00-0400 Diastolic blood pressure 66 mm[Hg] [facility] Other [employer] Other 02-10-2023 11:00-0400 Systolic blood pressure 80 mm[Hg] [employer] Other [employer] Other 01-27-2023 12:00-0400 Body temperature 97.6 [degF] DO Meng Reid Work Phone: [facility] 01-27-2023 12:00-0400 Diastolic blood pressure 77 mm[Hg] DO Meng Reid Work Phone: [facility] 01-27-2023 12:00-0400 Heart rate 43 /min DO Meng Reid Work Phone: [facility] 01-27-2023 12:00-0400 Respiratory rate 16 /min DO Meng Reid Work Phone: [facility] 01-27-2023 12:00-0400 SaO2% (BldA) [Mass fraction] 97 % DO Meng Reid Work Phone: [facility] 01-27-2023 12:00-0400 Systolic blood pressure 127 mm[Hg] DO Meng Reid Work Phone: [facility] 01-26-2023 13:16-0400 Body height 195.58 cm DO Meng Reid Work Phone: [facility] 01-26-2023 13:16-0400 Body mass index (BMI) [Ratio] 29.2 kg/m2 DO Meng Reid Work Phone: [facility] 01-26-2023 13:16-0400 Body weight 112 kg DO Meng Reid Work Phone: [facility] 01-24-2023 23:16-0400 Diastolic blood pressure 69 mm[Hg] DO Meng Reid Work Phone: [facility] 01-24-2023 23:16-0400 Heart rate 46 /min DO Meng Reid Work Phone: [facility] 01-24-2023 23:16-0400 Respiratory rate 18 /min DO Meng Reid Work Phone: [facility] 01-24-2023 23:16-0400 SaO2% (BldA) [Mass fraction] 95 % DO Meng Reid Work Phone: [facility] 01-24-2023 23:16-0400 Systolic blood pressure 116 mm[Hg] DO Meng Reid Work Phone: [facility] 01-24-2023 21:32-0400 Body height 195.58 cm DO Meng Reid Work Phone: [facility] 01-24-2023 21:32-0400 Body temperature 97.3 [degF] DO Meng Reid Work Phone: [facility] 01-24-2023 21:32-0400 Body weight 113.39 kg DO Meng Reid Work Phone: [facility] 10-27-2022 11:30-0400 Body height 191.13 cm Meng Reid Other [employer] Other 10-27-2022 11:30-0400 Body mass index (BMI) [Ratio] 30.66 kg/m2 Meng Reid Other [employer] Other 10-27-2022 11:30-0400 Body temperature 97.2 [degF] Meng Reid Other [employer] Other 10-27-2022 11:30-0400 Body weight 112.04 kg Meng Reid Other [employer] Other 10-27-2022 11:30-0400 Diastolic blood pressure 72 mm[Hg] Meng Reid Other [employer] Other 10-27-2022 11:30-0400 Respiratory rate 20 /min Meng Reid Other [employer] Other 10-27-2022 11:30-0400 SaO2% (BldA) [Mass fraction] 94 % Meng Reid Other [employer] Other 10-27-2022 11:30-0400 Systolic blood pressure 112 mm[Hg] Meng Reid Other [employer] Other 09-08-2022 19:00-0400 Diastolic blood pressure 88 mm[Hg] Meng Reid [facility] 09-08-2022 19:00-0400 SaO2% (BldA) [Mass fraction] 94 % Meng Reid [facility] 09-08-2022 19:00-0400 Systolic blood pressure 131 mm[Hg] Meng Reid [facility] 09-08-2022 18:34-0400 Body height 195.6 cm Meng Reid [facility] 09-08-2022 18:34-0400 Body mass index (BMI) [Ratio] 30.59 kg/m2 Meng Reid [facility] 09-08-2022 18:34-0400 Body temperature 98.29 [degF] [place] Reid [facility] 09-08-2022 18:34-0400 Body weight 117.03 kg [place] [facility] 09-08-2022 18:34-0400 Heart rate 66 /min [place] [facility] 09-08-2022 18:34-0400 Respiratory rate 22 /min [place] [facility] 05-13-2022 14:24-0500 Diastolic blood pressure 96 mm[Hg] Jazmine Estrella DO Work Phone: [facility] 05-13-2022 14:24-0500 Systolic blood pressure 138 mm[Hg] Jazmine Estrella DO Work Phone: [facility] 05-13-2022 14:12-0500 Body height 195.6 cm Jazmine Estrella DO Work Phone: [facility] 05-13-2022 14:12-0500 Body weight 113.85 kg Jazmine Estrella DO Work Phone: [facility] 05-13-2022 14:12-0500 Heart rate 56 /min Jazmine Estrella DO Work Phone: [facility] 05-13-2022 14:12-0500 SaO2% (BldA) [Mass fraction] 97 % Jazmine Estrella DO Work Phone: [facility] 03-23-2022 10:21-0500 Body height 195.6 cm Vicki Gleasonin DO Work Phone: [employer] 03-23-2022 10:21-0500 Body mass index (BMI) [Ratio] 27.87 kg/m2 Vicki Gleasonin DO Work Phone: [facility] [employer] 03-23-2022 10:21-0500 Body temperature 97.59 [degF] Vicki Gelasonin DO Work Phone: [facility] [employer] 03-23-2022 10:21-0500 Body weight 106.59 kg Vicki Devi DO Work Phone: [facility] [employer] 03-23-2022 10:21-0500 Diastolic blood pressure 92 mm[Hg] Vicki Gleasonin DO Work Phone: [facility] [employer] 03-23-2022 10:21-0500 Heart rate 59 /min Vicki Gleasonin DO Work Phone: [employer] 03-23-2022 10:21-0500 Respiratory rate 18 /min Vicki Devi DO Work Phone: [employer] 03-23-2022 10:21-0500 SaO2% (BldA) [Mass fraction] 98 % Vicki Gleasonin DO Work Phone: [employer] 03-23-2022 10:21-0500 Systolic blood pressure 132 mm[Hg] Vicki Gleasonin DO Work Phone: [employer] 12-02-2021 08:44-0400 Body height 198.1 cm Karuna Shin MD Work Phone: [employer] 12-02-2021 08:44-0400 Body mass index (BMI) [Ratio] 26.23 kg/m2 Karuna Shin MD Work Phone: [employer] 12-02-2021 08:44-0400 Body temperature 98.6 [degF] Karuna Shin MD Work Phone: [employer] 12-02-2021 08:44-0400 Body weight 102.97 kg Karuna Shin MD Work Phone: [employer] 12-02-2021 08:44-0400 Diastolic blood pressure 87 mm[Hg] Karuna Shin MD Work Phone: [employer] 12-02-2021 08:44-0400 Heart rate 61 /min Karuna Shin MD Work Phone: [employer] 12-02-2021 08:44-0400 Respiratory rate 16 /min Karuna Shin MD Work Phone: [employer] 12-02-2021 08:44-0400 SaO2% (BldA) [Mass fraction] 97 % Karuna Shin MD Work Phone: [employer] 12-02-2021 08:44-0400 Systolic blood pressure 137 mm[Hg] Karuna Shin MD Work Phone: [employer] 10-23-2021 16:30-0400 Diastolic blood pressure 68 mm[Hg] Elijah Walker DO Work Phone: [employer] 10-23-2021 16:30-0400 Heart rate 50 /min Elijah [place] DO Work Phone: [facility] [employer] 10-23-2021 16:30-0400 Respiratory rate 16 /min Elijah [place] Work Phone: [employer] 10-23-2021 16:30-0400 SaO2% (BldA) [Mass fraction] 97 % Elijah Walker DO Work Phone: [employer] 10-23-2021 16:30-0400 Systolic blood pressure 114 mm[Hg] Elijah Walker DO Work Phone: [facility] 10-23-2021 13:02-0400 Body temperature 97.7 [degF] Elijah [place] Work Phone: [facility] 10-23-2021 12:58-0400 Body height 198.1 cm Elijah [facility] Work Phone: [facility] 10-23-2021 12:58-0400 Body mass index (BMI) [Ratio] 28.89 kg/m2 Elijah [place] Work Phone: [facility] 10-23-2021 12:58-0400 Body weight 113.4 kg Elijah [facility] Work Phone: [facility] 09-23-2021 13:23-0400 Body height 198.1 cm [place] [facility]-2021 13:23-0400 Body mass index (BMI) [Ratio] 28.89 kg/m2 [place] [facility] 09-23-2021 13:23-0400 Body temperature 98.49 [degF] [facility] 09-23-2021 13:23-0400 Body weight 113.[address] [facility] 09-23-2021 13:23-0400 Diastolic blood pressure 85 mm[Hg] [facility] 09-23-2021 13:23-0400 Heart rate 64 /min [facility] 09-23-2021 13:23-0400 Respiratory rate 18 /min [facility] 09-23-2021 13:23-0400 SaO2% (BldA) [Mass fraction] 97 % [facility] 09-23-2021 13:23-0400 Systolic blood pressure 127 mm[Hg] [place] [facility] [facility] 09-08-2021 10:00-0400 Diastolic blood pressure 96 mm[Hg] Tariq Gonzalez MD Work Phone: [facility] [place] [facility] 09-08-2021 10:00-0400 Heart rate 66 /min Tariq Gonzalez MD Work Phone: [employer] 09-08-2021 10:00-0400 Respiratory rate 14 /min Tariq Gonzalez MD Work Phone: [employer] 09-08-2021 10:00-0400 SaO2% (BldA) [Mass fraction] 96 % Tariq Gonzalez MD Work Phone: [employer] 09-08-2021 10:00-0400 Systolic blood pressure 137 mm[Hg] Tariq Gonzalez MD Work Phone: [employer] 09-08-2021 09:48-0400 Body height 195.6 cm Tariq Gonzalez MD Work Phone: [employer] 09-08-2021 09:48-0400 Body mass index (BMI) [Ratio] 29.65 kg/m2 Tariq Gonzalez MD Work Phone: [facility] 09-08-2021 09:48-0400 Body temperature 97.7 [degF] Tariq Gonzalez MD Work Phone: [employer] 09-08-2021 09:48-0400 Body weight 113.4 kg Tariq Gonzalez MD Work Phone: [employer] 07-01-2021 08:50-0500 Body height 198.1 cm Karuna Shin MD Work Phone: [employer] 07-01-2021 08:50-0500 Body mass index (BMI) [Ratio] 29.47 kg/m2 Karuna Shin MD Work Phone: [facility] 07-01-2021 08:50-0500 Body temperature 97.59 [degF] Karuna Shin MD Work Phone: [employer] 07-01-2021 08:50-0500 Body weight 115.67 kg Karuna Shin MD Work Phone: [facility] 07-01-2021 08:50-0500 Diastolic blood pressure 72 mm[Hg] Karuna Shin MD Work Phone: [employer] 07-01-2021 08:50-0500 Heart rate 63 /min Karuna Shin MD Work Phone: [employer] 07-01-2021 08:50-0500 Respiratory rate 20 /min Karuna Shin MD Work Phone: [employer] 07-01-2021 08:50-0500 SaO2% (BldA) [Mass fraction] 98 % Karuna Shin MD Work Phone: [facility] 07-01-2021 08:50-0500 Systolic blood pressure 152 mm[Hg] Karuna Shin MD Work Phone: [employer] 06-23-2021 17:15-0500 Body height 191.13 cm Meng Reid Other [employer] Other 06-23-2021 17:15-0500 Body mass index (BMI) [Ratio] 31.04 kg/m2 Meng Reid Other [employer] Other 06-23-2021 17:15-0500 Body temperature 97.7 [degF] Meng Reid Other [employer] Other 06-23-2021 17:15-0500 Body weight 113.4 kg Meng Reid Other [employer] Other 06-23-2021 17:15-0500 Diastolic blood pressure 78 mm[Hg] Meng Reid Other [employer] Other 06-23-2021 17:15-0500 Respiratory rate 18 /min Meng Reid Other [employer] Other 06-23-2021 17:15-0500 SaO2% (BldA) [Mass fraction] 97 % Meng Reid Other [employer] Other 06-23-2021 17:15-0500 Systolic blood pressure 112 mm[Hg] Meng Mathews Other [facility] Other 06-18-2021 13:26-0500 Diastolic blood pressure 89 mm[Hg] Vicki Bulgrin DO Work Phone: [employer] 06-18-2021 13:26-0500 Heart rate 89 /min Vicki Bulgrin DO Work Phone: [employer] 06-18-2021 13:26-0500 Respiratory rate 18 /min Vicki Bulgrin DO Work Phone: [facility] 06-18-2021 13:26-0500 SaO2% (BldA) [Mass fraction] 99 % Vicki Bulgrin DO Work Phone: [facility] 06-18-2021 13:26-0500 Systolic blood pressure 133 mm[Hg] Vicki Bulgrin DO Work Phone: [employer] 06-18-2021 11:51-0500 Body height 198.1 cm Vicki Bulgrin DO Work Phone: [facility] 06-18-2021 11:51-0500 Body mass index (BMI) [Ratio] 30.62 kg/m2 Vicki Bulgrin DO Work Phone: [facility] 06-18-2021 11:51-0500 Body temperature 97.7 [degF] Vicki Bulgrin DO Work Phone: [facility] 06-18-2021 11:51-0500 Body weight 120.2 kg Vicki Bulgrin DO Work Phone: [facility] 02-24-2021 08:45-0400 Diastolic blood pressure 102 mm[Hg] Pj Werner MD Work Phone: [facility] Work Phone: 02-24-2021 08:45-0400 SaO2% (BldA) [Mass fraction] 96 % Pj Werner MD Work Phone: [facility] Work Phone: 02-24-2021 08:45-0400 Systolic blood pressure 127 mm[Hg] Pj Werner MD Work Phone: [facility] Work Phone: 02-24-2021 08:00-0400 Heart rate 57 /min Pj Werner MD Work Phone: [facility] Work Phone: 02-24-2021 08:00-0400 Respiratory rate 15 /min Pj Werner MD Work Phone: [facility] Work Phone: 02-24-2021 06:55-0400 Body height 195.6 cm Pj Werner MD Work Phone: [facility] Work Phone: 02-24-2021 06:55-0400 Body mass index (BMI) [Ratio] 29.65 kg/m2 Pj Werner MD Work Phone: [facility] Work Phone: 02-24-2021 06:55-0400 Body temperature 97.3 [degF] Pj Werner MD Work Phone: [facility] Work Phone: 02-24-2021 06:55-0400 Body weight 113.4 kg Pj Werner MD Work Phone: [facility] Work Phone: 11-08-2020 09:36-0400 Body height 198.1 cm Ana Bedoya [facility] Work Phone: 11-08-2020 09:36-0400 Body mass index (BMI) [Ratio] 27.16 kg/m2 Ana Bedoya [facility] Work Phone: 11-08-2020 09:36-0400 Body temperature 98.1 [degF] Ana Bedoya DO [facility] Work Phone: 11-08-2020 09:36-0400 Body weight 106.59 kg Ana Bedoya DO [facility] Work Phone: 11-08-2020 09:36-0400 Diastolic blood pressure 74 mm[Hg] Ana Bedoya [facility] Work Phone: 11-08-2020 09:36-0400 Heart rate 60 /min Ana Bedoya DO [facility] Work Phone: 11-08-2020 09:36-0400 Respiratory rate 17 /min Ana Bedoya [facility] Work Phone: 11-08-2020 09:36-0400 SaO2% (BldA) [Mass fraction] 96 % Ana Bedoya [facility] Work Phone: 11-08-2020 09:36-0400 Systolic blood pressure 132 mm[Hg] Ana Bedoya DO [facility] Work Phone: 10-24-2020 19:15-0400 Body temperature 98.2 [degF] Karuna Shin MD Work Phone: [facility] Work Phone: 10-24-2020 19:15-0400 Diastolic blood pressure 80 mm[Hg] Karuna Shin MD Work Phone: [facility] Work Phone: 10-24-2020 19:15-0400 Heart rate 70 /min Karuna Shin MD Work Phone: [facility] Work Phone: 10-24-2020 19:15-0400 Respiratory rate 18 /min Karuna Shin MD Work Phone: [facility] Work Phone: 10-24-2020 19:15-0400 SaO2% (BldA) [Mass fraction] 98 % Karuna Shin MD Work Phone: [facility] Work Phone: 10-24-2020 19:15-0400 Systolic blood pressure 126 mm[Hg] Karuna Shin MD Work Phone: [facility] Work Phone: 10-24-2020 18:38-0400 Body height 198.1 cm Karuna Shin MD Work Phone: [facility] Work Phone: 10-24-2020 18:38-0400 Body mass index (BMI) [Ratio] 28.89 kg/m2 Karuna Shin MD Work Phone: [facility] Work Phone: 10-24-2020 18:38-0400 Body weight 113.4 kg Karuna Shin MD Work Phone: [facility] Work Phone: 10-19-2020 12:37-0400 Body height 198.1 cm [email or web address] Work Phone: 10-19-2020 12:37-0400 Body mass index (BMI) [Ratio] 27.73 kg/m2 [email or web address] Work Phone: 10-19-2020 12:37-0400 Body temperature 98.29 [degF] Ana Prestiamoci Work Phone: 10-19-2020 12:37-0400 Body weight 108.86 kg Ana Prestiamoci Work Phone: 10-19-2020 12:37-0400 Diastolic blood pressure 83 mm[Hg] [facility] Work Phone: 10-19-2020 12:37-0400 Respiratory rate 18 /min Ana Bedoya DO [facility] Work Phone: 10-19-2020 12:37-0400 SaO2% (BldA) [Mass fraction] 96 % Ana Bedoya [facility] Work Phone: 10-19-2020 12:37-0400 Systolic blood pressure 144 mm[Hg] Ana Bedoya DO [facility] Work Phone: 10-15-2020 10:23-0400 Diastolic blood pressure 77 mm[Hg] Karuna Shin MD Work Phone: [facility] Work Phone: 10-15-2020 10:23-0400 Heart rate 52 /min Karuna Shin MD Work Phone: [facility] Work Phone: 10-15-2020 10:23-0400 Respiratory rate 20 /min Karuna hSin MD Work Phone: [facility] Work Phone: 10-15-2020 10:23-0400 SaO2% (BldA) [Mass fraction] 97 % Karuna Shin MD Work Phone: [facility] Work Phone: 10-15-2020 10:23-0400 Systolic blood pressure 122 mm[Hg] Karuna Shin MD Work Phone: [facility] Work Phone: 10-15-2020 08:58-0400 Body temperature 97.9 [degF] aKruna Shin MD Work Phone: [facility] Work Phone: 10-15-2020 08:53-0400 Body height 198.1 cm Karuna Shin MD Work Phone: [facility] Work Phone: 10-15-2020 08:53-0400 Body mass index (BMI) [Ratio] 28.31 kg/m2 Karuna Shin MD Work Phone: [facility] Work Phone: 10-15-2020 08:53-0400 Body weight 111.13 kg Karuna Shin MD Work Phone: [facility] Work Phone: 08-07-2020 12:24-0400 BMI (Body Mass Index) 30.05 kg/m2 Pete Brittney [facility] [place] Work Phone: 08-07-2020 12:24-0400 Body Temperature 98.2 [degF] [facility] [place] Work Phone: 08-07-2020 12:24-0400 Body weight 117.94 kg [facility] [place] Work Phone: 08-07-2020 12:24-0400 BP Diastolic 95 mm[Hg] [facility] 08-07-2020 12:24-0400 BP Systolic 135 mm[Hg] [facility] Work Phone: 08-07-2020 12:24-0400 Height 198.1 cm [facility] Work Phone: 08-07-2020 12:24-0400 Pulse (Heart Rate) 57 /[facility] 08-07-2020 12:24-0400 Pulse Oximetry 98 % [facility] [place] Work Phone: 08-07-2020 12:24-0400 Respiratory Rate 18 /min [facility] Work Phone: 04-01-2020 09:09-0500 BMI (Body Mass Index) 29.12 kg/m2 Uziel Waters [facility], [place] 04-01-2020 09:09-0500 Body Temperature 97.81 [degF] Uzielrose Waters [facility], [place] 04-01-2020 09:09-0500 Body weight 114.31 kg Uzielrose Waters [facility] , [place] 04-01-2020 09:09-0500 BP Diastolic 89 mm[Hg] [facility] , [place] 04-01-2020 09:09-0500 BP Systolic 149 mm[Hg] [facility] , [place] 04-01-2020 09:09-0500 Height 198.1 cm Uziel Jt [facility] , [place] 04-01-2020 09:09-0500 Pulse (Heart Rate) 65 /min Uziel Jt [facility], [place] 04-01-2020 09:09-0500 Pulse Oximetry 98 % Uziel Jt [facility] , [place] 04-01-2020 09:09-0500 Respiratory Rate 20 /min Uziel Jt [facility], [place] 02-20-2020 12:50-0400 BMI (Body Mass Index) 28.89 kg/m2 [facility], [place] 02-20-2020 12:50-0400 Body Temperature 98.2 [degF] [facility], [place] 02-20-2020 12:50-0400 Body weight 113.4 kg [facility] , [place] 02-20-2020 12:50-0400 BP Diastolic 80 mm[Hg] [facility] , [place] 02-20-2020 12:50-0400 BP Systolic 147 mm[Hg] [facility] , [place] 02-20-2020 12:50-0400 Pulse (Heart Rate) 66 /min [facility] Kip [facility], [place] 02-20-2020 12:50-0400 Pulse Oximetry 98 % [facility] , [place] 02-20-2020 12:50-0400 Respiratory Rate 18 /min [facility] Kip [facility], [place] 02-19-2020 12:13-0400 BMI (Body Mass Index) 28.89 kg/m2 Uziel Waters [facility] [place], [place] 02-19-2020 12:13-0400 Body Temperature 98.01 [degF] Uziel Waters [facility] [place] 02-19-2020 12:13-0400 Body weight 113.4 kg Uziel Waters [facility] , [place] 02-19-2020 12:13-0400 BP Diastolic 86 mm[Hg] [facility] [place] [facility] [place] 02-19-2020 12:13-0400 BP Systolic 141 mm[Hg] [facility] [place] 02-19-2020 12:13-0400 Pulse (Heart Rate) 69 /min [facility], [place] 02-19-2020 12:13-0400 Pulse Oximetry 98 % Uzielrose Waters [facility] , [place] 02-19-2020 12:13-0400 Respiratory Rate 20 /min Uzielrose Waters [facility], [place] 11-01-2019 09:10-0400 BMI (Body Mass Index) 28.31 kg/m2 Uziel Waters [facility], [place] 11-01-2019 09:10-0400 Body Temperature 97.7 [degF] Uziel Waters [facility] [place] 11-01-2019 09:10-0400 Body weight 111.13 kg Uziel Waters [facility] , [place] 11-01-2019 09:10-0400 BP Diastolic 70 mm[Hg] [facility] [place] , [place] 11-01-2019 09:10-0400 BP Systolic 149 mm[Hg] [facility] , [place] 11-01-2019 09:10-0400 Height 198.1 cm [facility] , [place] 11-01-2019 09:10-0400 Pulse (Heart Rate) 58 /min [facility], [place] 11-01-2019 09:10-0400 Pulse Oximetry 99 % [facility] , [place] 11-01-2019 09:10-0400 Respiratory Rate 16 /min [facility] 05-19-2019 19:13-0500 Body height 198.1 cm Karuna Shin MD Work Phone: [facility] Work Phone: 05-19-2019 19:13-0500 Body mass index (BMI) [Ratio] 25.89 kg/m2 Karuna Shin MD Work Phone: [facility] Work Phone: 05-19-2019 19:13-0500 Body temperature 97.7 [degF] Karuna Shin MD Work Phone: [facility] Work Phone: 05-19-2019 19:13-0500 Body weight 101.61 kg Karuna Shin MD Work Phone: [facility] Work Phone: 05-19-2019 19:13-0500 Diastolic blood pressure 75 mm[Hg] Karuna Shin MD Work Phone: [facility] Work Phone: 05-19-2019 19:13-0500 Heart rate 70 /min Karuna Shin MD Work Phone: [facility] Work Phone: 05-19-2019 19:13-0500 Respiratory rate 18 /min Karuna Shin MD Work Phone: [facility] Work Phone: 05-19-2019 19:13-0500 SaO2% (BldA) [Mass fraction] 97 % Karuna Shin MD Work Phone: [facility] Work Phone: 05-19-2019 19:13-0500 Systolic blood pressure 144 mm[Hg] Karuna Shin MD Work Phone: [facility] Work Phone: 04-17-2019 14:28-0500 BMI (Body Mass Index) 25.89 kg/m2 [facility] [place] [place] 04-17-2019 14:28-0500 Body Temperature 98.29 [degF] Cuauhtemoc Stonevan [facility] [place] [place] [place] 04-17-2019 14:28-0500 Body weight 101.61 kg Cuauhtemoc Woodard [facility] , [place] 04-17-2019 14:28-0500 BP Diastolic 86 mm[Hg] Cuauhtemoc Woodard [facility] , [place] 04-17-2019 14:28-0500 BP Systolic 134 mm[Hg] Cuauhtemoc Woodard [facility] , [place] 04-17-2019 14:28-0500 Height 198.1 cm Cuauhtemoc Woodard [facility] , [place] 04-17-2019 14:28-0500 Pulse (Heart Rate) 69 /min Cuauhtemoc Woodard [facility], [place] 04-17-2019 14:28-0500 Pulse Oximetry 99 % Cuauhtemoc Woodard [facility] , [place] 04-17-2019 14:28-0500 Respiratory Rate 16 /min Cuauhtemoc Woodard [facility], [place] 04-14-2019 22:00-0500 Body Temperature 98.29 [degF] Ernestina Woodard [facility], [place] 04-14-2019 22:00-0500 BP Diastolic 91 mm[Hg] Ernestina Woodard [facility] , [place] 04-14-2019 22:00-0500 BP Systolic 180 mm[Hg] Ernestina Woodard [facility] , [place] 04-14-2019 22:00-0500 Pulse (Heart Rate) 62 /min Ernestina Woodard [facility], [place] 04-14-2019 22:00-0500 Pulse Oximetry 98 % Ernestina Woodard [facility] , [place] 04-14-2019 11:46-0500 BP Diastolic 74 mm[Hg] Ernestina Woodard [facility] , [place] 04-14-2019 11:46-0500 BP Systolic 120 mm[Hg] Ernestina Woodard [facility] , [place] 04-14-2019 11:46-0500 Pulse (Heart Rate) 58 /min Ernestina Woodard [facility], [place] 04-14-2019 11:46-0500 Pulse Oximetry 99 % Ernestina Woodard [facility] , [place] 04-14-2019 11:46-0500 Respiratory Rate 18 /min Ernestina Woodard [facility], [place] 04-14-2019 10:58-0500 Body Temperature 98.6 [degF] Ernestina Woodard [facility], [place] 04-14-2019 09:37-0500 BMI (Body Mass Index) 25.89 kg/m2 Ernestina Woodard [facility], [place] 04-14-2019 09:37-0500 Body weight 101.61 kg Ernestina Woodard [facility] , [place] 04-14-2019 09:37-0500 Height 198.1 cm Ernestina Woodard [facility] , [place] 04-13-2019 09:58-0500 BP Diastolic 79 mm[Hg] Deandre Woodard [facility] , [place] 04-13-2019 09:58-0500 BP Systolic 116 mm[Hg] [facility] [place] 04-13-2019 09:58-0500 Pulse (Heart Rate) 60 /min [facility], [place] 04-13-2019 09:58-0500 Pulse Oximetry 98 % Deandre Woodard [facility] , [place] 04-13-2019 09:58-0500 Respiratory Rate 16 /min Deandre Woodard [facility], [place] 04-13-2019 09:09-0500 BMI (Body Mass Index) 25.89 kg/m2 Deandre Woodard [facility], [place] 04-13-2019 09:09-0500 Body Temperature 97.9 [degF] Deandre Woodard [facility], [place] 04-13-2019 09:09-0500 Body weight 101.61 kg Deandre Woodard [facility] , [place] 04-13-2019 09:09-0500 Height 198.1 cm Deandre Torres [place], [place] Functional Status Date Assessment Result Facility 01-27-2023 Functional status Patient at [facility] Work Phone: 01-25-2023 Functional status Patient at [facility] Work Phone: Mental Status Date Assessment Result Facility 01-27-2023 Cognitive function Cognitive Sta tus Patient at [facility] Work Phone: 01-25-2023 Cognitive function Cognitive Sta tus Patient at [facility] Work Phone: Clinical Notes 04-07-2011 to 06-27-2023 Note Date & Type Note Facility 06-27-2023 Evaluation note Encounter Date Diagnosis Assessment Notes Jun, Anxiety (ICD-10 - F41.9) [employer] Other 01-11-2024 Evaluation note* Encounter Date Diagnosis Assessment Notes Treatment Notes Treatment Clinical Notes May, Anxiety (ICD-10 - F41.9) [employer] Other 12-21-2023 Evaluation note* Encounter Date Diagnosis Assessment Notes Treatment Notes Treatment Clinical Notes Apr, Lumbar degenerative disc disease (ICD-10 - M51.36) 47 y/o male evaluated via virtual visit to discuss his recent procedure. He is status post caudal epidural steroid injection under fluorosopic guidance. Patient reports significant pain relief as well as improved function in walking, standing and daily activities following the procedure. He complains of residual lower extremity pain today. Overall he is doing very well and does not require any further treatment at this time. He is due to start PT next month, I recommend she proceed with that as planned. He can call the office should his pain become bothersome. Apr, Chronic pain (ICD-10 - G89.29) Stable, follow up as needed Apr, Lumbosacral spondylosis (ICD-10 - M47.817) Consider lumbar facet medial branch nerve blocks in the future if needed Apr, Sacroiliitis (ICD-10 - M46.1) Consider SI joint injections in the future if needed [employer] Other 11-20-2023 Evaluation note* Encounter Date Diagnosis Assessment Notes Treatment Notes Treatment Clinical Notes Mar, Failed back syndrome (ICD-10 - M53.9) 47 year old male presents with complaints of low back pain,as well as bilateral lower extremity weakness and fatigue. He notes pain has been present or more than 10 years and is a constant aching pain. He notes having radicular symptoms in 2012, prior to surgery with the [facility]. He denies any recent physical therapy. He feels pain negatively impacts his daily activities and sleeping pattern. He notes a recent surgery with Dr Chavez. He denies previous pain management. Prior to examining the patient, I reviewed progress notes from his referring provider Veronica Hill. I also independently reviewed recent imaging of the lumbar spine which shows degenerative changes as well as facet arthropathy. Anatomy of spine discussed in detail with patient in regards to patients condition. Patient is a candidate for a caudal epidural steroid injection under fluoroscopic guidance. Risks and benefits of procedure explained to patient; patient verbalizes understanding. Mar, Sacroiliitis (ICD-10 - M46.1) In the future if the pain persists, we can consider proceeding with a bilateral sacroiliac joint injection under fluoroscopic guidance. In the meantime, I will refer patient to physical therapy for core muscle strengthening. Mar, Lumbosacral spondylosis (ICD-10 - M47.817) In the future if the pain persists, we can consider proceeding with a bilateral lumbar facet MBB followed by a RFA, if applicable under fluoroscopic guidance. In the meantime, I recommend he proceed with physical therapy. Mar, Chronic pain (ICD-10 - G89.29) Continue with current treatment plan Mar, Lumbar degenerative disc disease (ICD-10 - M51.36) Proceed with physical therapy as ordered. Mar, Other Medical deci joanna making shows a new problem to me with further workup planned or suggested with the potential for extensive treatment options that were considered with the most applicable given this patient's situation as noted above. Treatment options considered include a combination of physical therapy approaches, pharmacologic management, and interventional procedures. Those most applicable to the patient were discussed at this time. Risk of complications and/or morbidity and mortality is high given that acute and chronic pain poses a threat to life and bodily function if undertreated, poorly treated or with failure to maintain adequate treatment and timely followup. Given the serious and fluctuating nature of pain with extensive consideration for whenever pain changes, there always remains the possibility of prolonged functional impairment requiring constant patient reassessment and high-level medical decision making. The amount and complexity of data reviewed is high given that patient labs, radiology reports, and other test were obtained, reviewed and summarized as applicable from the physician portal and/or outside medical records. Pertinent positive and negative findings were considered in medical decision-making. [employer] Other 11-20-2023 Evaluation note* Encounter Date Diagnosis Assessment Notes Treatment Notes Treatment Clinical Notes Mar, Anxiety (ICD-10 - F41.9) [employer] Other 11-16-2023 Evaluation note* Encounter Date Diagnosis Assessment Notes Treatment Notes Treatment Clinical Notes Mar, Displacement of lumbar intervertebral disc (ICD-10 - M51.26) This patient is now walking 4 miles. He feels much better. There is good relief of leg pain he still has chronic back pain for which she is seeing pain management. I will see him at this point on an as-needed basis he is aware of his restrictions and has been noncompliant at present. Mar, Lumbar radiculopathy (ICD-10 - M54.16) [employer] Other 10-24-2023 Evaluation note* Encounter Date Diagnosis Assessment Notes Treatment Notes Treatment Clinical Notes Feb, Anxiety (ICD-10 - F41.9) [employer] Other 10-19-2023 Evaluation note* Encounter Date Diagnosis Assessment Notes Treatment Notes Treatment Clinical Notes Feb, Acute sinusitis, unspecified (ICD-10 - J01.90) [employer] Other 09-28-2023 Evaluation note* Encounter Date Diagnosis Assessment Notes Treatment Notes Treatment Clinical Notes Jan, History of lumbar discectomy (ICD-10 - Z98.890) -2 weeks po L4-5 discectomy 01/26/2023, doing well, continues to have spotty neuropathy. -14 nicho removed; healed well -Follow up [address] Chavez [employer] Other 09-26-2023 Evaluation note* Encounter Date Diagnosis Assessment Notes Treatment Notes Treatment Clinical Notes Jan, Chronic gastric ulcer without hemorrhage and without perforation (ICD-10 - K25.7) [employer] Other 09-25-2023 Evaluation note* Encounter Date Diagnosis Assessment Notes Treatment Notes Treatment Clinical Notes Jan, Chronic gastric ulcer without hemorrhage and without perforation (ICD-10 - K25.7) [employer] Other 09-21-2023 Evaluation note* Encounter Date Diagnosis Assessment Notes Treatment Notes Treatment Clinical Notes Jan, Anxiety (ICD-10 - F41.9) [employer] Other 09-14-2023 Progress note Author Master Siegel [facility] January 27, 2023 12:17pm Note Date/Time January 27, 2023 12:17pm [facility] [address] [place], [place] [id number] Cardiology Progress Note Signed Patient: Elijah Wylie Jr MR#: [id number] : 1975 Acct:[id number] Age/Sex: 47 / M Adm Date: 3 Loc: 4N Room: [address] [place] [address] Type: ADM IN Attending Dr: Nano Gates MD Copies to: ~ Date of Service: 01/27/2023 Subjective Interval history: No cardiac complaint. Remains bradycardic heart rate below 50. No cardiac complication. Underwent surgery yesterday Exam Physical Exam Vital Signs: Temp Pulse Resp BP Pulse Ox O2 Del Method 97.6 F 43 L 16 127/77 97 Room Air 01/27/23 12:00 01/27/23 12:00 01/27/23 12:00 01/27/23 12:00 01/27/23 12:00 01/27/23 08:00 Eyes General: appearance normal, both eyes and all related structures Pupils: PERRL Neck Neck: normal visual inspection, supple and no lymphadenopathy noted Neck mass: No Thyroid: thyroid normal Carotids: normal carotid upstroke Chest Chest palpation & inspection: normal inspection of the chest Resp Effort & Inspection: normal respiratory effort Auscultation: clear to auscultation bilaterally Cardio Palpation: normal PMI Rate: regular rate and bradycardic Rhythm: regular rhythm Heart Sounds: S1 normal and S2 normal Skin General: no rashes or lesions noted and dry skin Extrem General: full ROM, capillary refill normal and no clubbing, cyanosis or edema Objective Labs 01/26/23 05:43 01/26/23 05:43 Labs: Laboratory Results - last 24 hr 01/26/23 10:25 Urine Opiates Screen Positive H Ur Barbiturates Screen Negative Ur Phencyclidine Scrn Negative Ur Amphetamines Screen Negative U Benzodiazepines Scrn Positive H Urine Cocaine Screen Negative U Marijuana (THC) Screen Positive H A&P - Cardiology (1) Lumbar disc herniation with radiculopathy: Code(s): M51.16 - Intervertebral disc disorders with radiculopathy, lumbar region Status: Acute Plan Assessment 1. Coronary artery disease with Prior presentation with acute myocardial infarction and sudden cardiac . Underwent PCI to the [facility] 3 years ago. He has been stable cardiac rodriguez. Repeat cardiac catheterization showed widely patent stent. Prior to the patient injuring his back he reported functional class I with no cardiac symptoms 2. Sinus bradycardia due to beta-derek and a prior treatment with calcium channel derek 3. Intractable back pain with herniated disc 4. Hyperlipidemia 5. Obesity Plan 1. We will discontinue Coreg 2. Continue risk of cardiac medication 3. We will follow on as-needed basis 4. Patient to follow-up with his primary personal investment adviser Documented By: Master Siegel MD 01/27/231215 Signed By: <Electronically signed by MD Master Siegel> 01/27/237 [facility] Work Phone: [phone] 390-483909-14-2023 Progress note Author Nano Gates [facility] January 27, 2023 9:05am Note Date/Time January 27, 2023 9:01am [facility] [address] [place] [address] Hospitalist Progress Note Signed with Addenda Patient: Elijah Wylie Jr MR#: [id number] : 1975 Acct:[id number] Age/Sex: 47 / M Adm Date: 3 Loc: Room: [address] [place] [address] Type: ADM IN Attending Dr: Nano Gates MD Copies to: ~ ADDENDUM1 Patient continues to have bradycardia which is asymptomatic despite holding his calcium derek for 36 hours The plan is to discontinue Cardizem on discharge. His blood pressure is well controlled on lisinopril His blood pressure and heart rate would need to be monitored postdischarge by PCP and/or personal investment adviser and additional adjustment may be needed. Patient was made aware of this. Addendum Documented By: Nano Gates MD 01/27/23904 Addendum Signed By: <Electronically signed by Nano Gates MD> 01/27/23904 Date of Service: 01/27/2023 Subjective Subjective Narrative: Patient is feeling better. No chest pain palpitation. No abdominal pain. No nausea vomiting. No cough or congestion. Back issues are addressed by Dr. Chavez. Exam Physical Exam Vital Signs: Temp Pulse Resp BP Pulse Ox O2 Del Method 97.5 F L 45 L 16 121/75 94 L Room Air 01/27/23 08:17 01/27/23 08:17 01/27/23 08:17 01/27/23 08:17 01/27/23 08:17 01/27/23 03:20 Narrative: [pt is awake and alert. oriented to place, time and person, no distress HEENT: [place] conjunctiva and NL buccal mucosa Neck: Supple, no tenderness Endocrine: No Thyromegaly. Vascular: No JVD or carotid bruit. Lymphatic: No cervical lymphadenopathy. Chest: CTA no DTP. Heart RRR, no extra sound or murmur. Abd: Soft, no tenderness, no rebound and no rigidity. Increase abd girth therefore clinically I could not exclude the possibility of intra abd mass or organomegaly. LE: No cyanosis or clubbing, no varices or edema. Neuro: A A O. Nl speech, comprehension and attention. Patient is able to lift up his lower extremities against resistance. Sensory loss involving the right leg associated with L4-5 distribution []] Objective Lab Results 01/26/23 05:43 01/26/23 05:43 Meds Allergies and Active Meds Allergies cefaclor [From Ceclor] Adverse Reaction (Verified 01/24/23 21:31) Hives NSAIDS (Non-Steroidal Anti-Inflamma Adverse Reaction (Verified 01/24/23 21:31) Unknown Reaction Sulfa (Sulfonamide Antibiotics) Adverse Reaction (Verified 01/24/23 21:31) skin reaction sulfamethoxazole [From Bactrim] Adverse Reaction (Verified 01/24/23 21:31) skin reaction trimethoprim [From Bactrim] Adverse Reaction (Verified 01/24/23 21:31) skin reaction Active Meds: Active Medications Generic Name Dose Route Start Last Admin Trade Name Freq PRN Reason Stop Dose Admin Acetaminophen 650 mg 01/26/23 15:50 Acetaminophen 325 Mg Tablet PO 01/26/24 15:49 Q4H PRN Mild Pain Al Hydrox/Mg Hydrox/Simethicone 30 ml 01/26/23 15:50 Mag Hydrox/Al Hydrox/Simeth 30 Ml Udc PO 01/26/24 15:49 Q4H PRN Heartburn Aspirin 81 mg 01/27/23 09:00 01/27/23 08:11 Aspirin 81 Mg Tab.Chew PO 01/27/24 08:59 81 mg DAILY LINDSEY Administration Baclofen 5 mg 01/26/23 18:55 01/27/23 08:11 Baclofen 10 Mg Tablet PO 01/26/24 18:54 5 mg TID LINDSEY Administration Cyclobenzaprine HCl 10 mg 01/26/23 15:50 01/27/23 00:11 Cyclobenzaprine 10 Mg Tablet PO 01/26/24 15:49 10 mg Q8HR PRN Administration Muscle Spasm Dexamethasone Sodium Phosphate 4 mg 01/26/23 15:50 01/27/23 08:12 Dexamethasone Sod Phosphate 4 Mg/Ml Vial IV-PUSH 01/29/23 15:49 4 mg QID LINDSEY Administration Taper Diphenhydramine HCl 25 mg 01/26/23 15:50 Diphenhydramine 25 Mg Capsule PO 01/26/24 15:49 Q6H PRN Itching Ergocalciferol 1,250 mcg 01/27/23 09:00 01/27/23 08:11 Ergocalciferol 1,250 Mcg (50,000 Units) Capsule PO 01/27/24 08:59 1,250 mcg Th@0900 LINDSEY Administration Famotidine 20 mg 01/26/23 21:00 01/26/23 21:23 Famotidine/Pf 20 Mg/2 Ml Vial IV-PUSH 01/26/24 20:59 20 mg Q12HR LINDSEY Administration Hydromorphone HCl 1 mg 01/26/23 15:50 01/26/23 16:45 Hydromorphone 1 Mg/Ml Syringe IV-PUSH 1 mg Q2H PRN Administration Pain Hydromorphone HCl 0.5 mg 01/26/23 15:50 01/27/23 08:11 Hydromorphone 0.5 Mg/0.5 Ml Syringe IV-PUSH 0.5 mg Q2H PRN Administration Pain Lactated Ringer's 1,000 mls @ 20 mls/hr 01/26/23 11:50 01/26/23 14:57 Lactated Ringers IV 01/27/23 11:49 20 mls/hr .Q24H ONE Infusion Potassium Chloride/Dextrose/Sod Cl 1,000 mls @ 100 mls/hr 01/26/23 15:50 01/27/23 08:10 D5w-0.9 % Nacl-20 Meq Kcl IV 01/26/24 15:49 Not Given .Q10H LINDSEY Magnesium Hydroxide 30 ml 01/26/23 15:50 Magnesium Hydroxide Susp 30 Ml Udc PO 01/26/24 15:49 HS PRN Constipation Multivitamins 1 tab 01/27/23 09:00 01/27/23 08:11 Multivitamin 1 Tab Tablet PO 01/27/24 08:59 1 tab DAILY LINDSEY Administration Ondansetron HCl 4 mg 01/26/23 15:50 01/26/23 16:45 Ondansetron 4 Mg/2 Ml Vial IV-PUSH 01/26/24 15:49 4 mg Q6H PRN Administration Nausea And Vomiting Oxycodone HCl 5 mg 01/26/23 15:50 Oxycodone Ir 5 Mg Tablet PO Q6HR PRN Pain Scale 1 - 5 Oxycodone HCl 10 mg 01/26/23 15:50 01/27/23 03:19 Oxycodone Ir 5 Mg Tablet PO 10 mg Q6HR PRN Administration Pain Scale 6 - 10 Senna/Docusate Sodium 2 tab 01/26/23 21:00 01/27/23 08:11 Sennosides/Docusate 8.6-50mg 1 Tab Tablet PO 01/26/24 20:59 2 tab BID LINDSEY Administration Sodium Chloride 10 ml 01/26/23 15:50 01/26/23 21:23 Sodium Chloride 0.9 % 10 Ml Vial.Pf INJECTION 01/26/24 15:49 10 ml PRN PRN Administration To dilute Pepcid A&P - Hospitalist Assessment/Plan (1) Intractable back pain: (2) Radiculopathy: (3) Bulging discs: (4) Bradycardia, sinus: (5) Anxiety: (6) CAD (coronary artery disease): Plan Intractable back pain Radiculopathy Bulging discs at L4-L5, L5-S1 Status post lumbar surgery Postoperative surgical related issues including ambulation instructions, pain management, pharmacological DVT prophylaxis, monitoring for wound care, wound healing, wound dehiscence, wound infection are to be carried out by spine surgery team. Chronic conditions: Sinus bradycardia?monitor telemetry, home medications, discontinue Cardizem. I started him on Coreg 6.25 twice a day with holding parameters Anxiety?monitor, will resume home medications Tobacco dependence?nicotine patch daily, tobacco cessation counseling was provided History of cardiac arrest, CAD status post stent History of Monica-en-Y gastric bypass DVT PPx-SCDs, no pharmacological therapy pending possible surgery Diet order-regular CODE STATUS-full code Documented By: Nano Gates MD 01/27/23 0857 Signed By: <Electronically signed by Nano Gates MD> 01/27/23 0901 [facility] Work Phone: [phone]) 650-998909-14-2023 Discharge summary Author Phoenix Chavez [facility] January 27, 2023 8:03am Note Date/Time January 27, 2023 8:03am [facility] [address] [place] [address] Discharge Summary Signed Patient: Elijah Wylie Jr MR#: [id number] : 1975 Acct:[id number] Age/Sex: 47 / M Adm Date: 3 Loc: Room: [address] [place] [address]: Nano Gates MD Copies to: MD Nano Ch MD Seth M Ruggles,DO~ Providers Date of Admission: 01/24/23 Date of Discharge: 01/27/23 Discharging Provider: Phoenix Chavez Primary Care Provider: Meng Mathews Consults: 01/26/23 15:50 Consult to Occupational Therapy Routine Consult to Physical Therapy Routine Discharge Diagnosis (1) Lumbar disc herniation with radiculopathy: Final Diagnosis Final Discharge Diagnosis: Lumbar disc herniation with radiculopathy Summary Hospital Course Hospital course: This is a 47-year-old male who presented with intractable right leg pain and right foot weakness 4/5 anterior tibial and EHL. He had had the symptoms for a prolonged period of time was not able to function and was admitted to the hospital for pain control. He was seen in consult by neurosurgery found to havea large disc herniation L4-5 on the right and underwent uncomplicated microdiscectomy 01/26/2023. In the postop period he has the usual back pain but right leg pain is resolved. He is able to ambulate to the bathroom and ambulatethe halls he feels overall much better. Full home-going instructions were givenhe will be discharged home for follow-up in 1 month in the office. Time Spent with Patient Time spent providing/coordinating discharge services (# min): 30 Surgeries and Procedures Operation Date: 01/26/23 12:50 Actual Procedures p OR L4 L5 Lumbar Discectomy Right(Right) - Phoenix Chavez MD Diagnostic Studies Completed and Pending Studies Labs on day of discharge: 01/26/23 10:25: Urine Opiates Screen Positive H, Ur Barbiturates Screen Negative, Ur Phencyclidine Scrn Negative, Ur Amphetamines Screen Negative, U Benzodiazepines Scrn Positive H, Urine Cocaine Screen Negative, U Marijuana (THC) Screen Positive H 01/26/23 05:43: PHA Creatinine Clear 185.92, Sodium 143 D, Potassium 4.2, Chloride 110 H, Carbon Dioxide 26.7, Anion Gap 10.5, BUN 9, Creatinine 0.69 L, Est GFR (CKD-EPI) > 60.0, Glucose 136 H, Calcium 8.8 01/26/23 05:43: Corrected WBC 16.3 H, Uncorrected WBC Count 16.3 H, RBC 4.46, Hgb 12.6 L, Hct 38.8, MCV 87.1, MCH 28.2, MCHC 32.4 L, RDW 16.6 H, Plt Count 114L, MPV 11.9 H, Neut % (Auto) 92.3, Lymph % (Auto) 5.1, Emmet % (Auto) 2.0, Eos % (Auto) 0.0, Baso % (Auto) 0.6, Nucleat RBC Rel Count 0.0, Neut # (Auto) 15.1 H, Lymph # (Auto) 0.8 L, Emmet # (Auto) 0.3, Eos # (Auto) 0.0, Baso # (Auto) 0.1 Exam Physical Exam Vital Signs: Temp Pulse Resp BP Pulse Ox O2 Del Method 97.3 F L 42 L 18 117/70 96 Room Air 01/27/23 03:20 01/27/23 03:20 01/27/23 03:20 01/27/23 03:20 01/27/23 03:20 01/27/23 03:20 Discharge Plan Discharge Plan Activity: Ambulate as Tolerated Diet: Regular Additional Instructions: DISCHARGE INSTRUCTIONS FOR LUMBAR DISCECTOMY DIET -No restrictions unless diabetic or cardiac ACTIVITY -Activity as tolerated; no lifting over 10 pounds -Encourage ambulation -No driving until seen by your physician; may ride in car -No need to cover incision site -May shower on Tuesday. -There is a liquid bandage on the wound, no dressing should be required unless drainage is noted. -Is ice 20 minutes every 1-2 hours as needed for back spasm -Use the prednisone provided if your leg pain returns to a significant degree. Otherwise please do not use the prednisone. OTHER -Call your physician's office for any of the following: fever, swelling, nausea,vomiting, drainage, numbness, tingling, or bowel and bladder changes. -Please call your physician's office to make an appointment to see your physician in two weeks. Prescriptions: New cyclobenzaprine 10 mg tablet 10 mg PO TID PRN (Reason: back spasms) Qty: 40 0RF cephalexin 500 mg capsule 500 mg PO TID Qty: 15 0RF oxycodone 5 mg tablet 5 - 10 mg PO Q6H PRN (Reason: Pain) 8 Days Qty: 40 0RF prednisone 10 mg tablets,dose pack 1 dose pk PO PER PKG DIR Qty: 30 0RF Rx Instructions: take 4 tabs for 3 days then take 3 tabs for 3 days then take 2 tabs for 3 days then take 1 tab for 3 days Continued alprazolam 1 mg tablet 2 mg PO BID PRN (Reason: Anxiety) Rx Instructions: TAKE 1 TABLET BY MOUTH TWICE DAILY NEEDED FOR ANXIETY pantoprazole [Protonix] 40 mg tablet,delayed release (DR/EC) 40 mg PO BID sertraline [Zoloft] 50 mg tablet 100 mg PO DAILY Rx Instructions: take 1 tablet Once a day Orally 30 day(s) aspirin [Children's Aspirin] 81 mg Tablet,Chewable 81 mg PO DAILY Qty: 0 0RF nitroglycerin [Nitrostat] 0.4 mg tablet, sublingual 0.4 mg sublingual Q5M PRN (Reason: chest pain) 30 Days Qty: 25 3RF Rx Instructions: do not exceed 3 doses per episode atorvastatin [Lipitor] 80 mg tablet 80 mg PO QPM lisinopril [Zestril] 5 mg tablet 5 mg PO DAILY sucralfate 1 gram Tablet 1 g PO TID.AC.HS Qty: 120 0RF diltiazem HCl 120 mg Capsule,Extended Release 24hr 120 mg PO DAILY Qty: 30 0RF ergocalciferol (vitamin D2) 1,250 mcg (50,000 unit) Capsule 1,250 mcg PO Th@0900 Qty: 12 0RF multivitamin Tablet 1 tab PO DAILY Qty: 30 0RF cyanocobalamin (vitamin B-12) 1,000 mcg capsule 1,000 mcg PO DAILY Qty: 30 0RF montelukast 10 mg tablet 10 mg PO DAILY Patient Comments: TAKE 1 TABLET BY MOUTH DAILY Nurtec ODT 75 mg tablet,disintegrating 75 mg PO DAILY PRN (Reason: Migraine Headache) Patient Comments: PLACE 1 (ONE) TABLET ON THE TONGUE and allow to DISSOLVE DAILY NEEDED MUST LAST 30 DAYS Follow Up: Phoenix Chavez MD [Active Staff] - Documented By: Phoenix Chavez MD 01/27/23 08 Signed By: <Electronically signed by MD Phoenix Chavez> 01/27/23 0803 [facility] Work Phone: [phone]) 574-357809-14-2023 Progress note Author Phoenix Chavez [facility] January 27, 2023 7:51am Note Date/Time January 27, 2023 7:51am [facility] [address] [place] [address] Neurosurgery Progress Note Signed Patient: Elijah Wylie MR#: [id number] : 1975 Acct:[id number] Age/Sex: 47 / M Adm Date: 3 Loc: 4N Room: [address] [place] [address] Type: ADM IN Attending Dr: Nano Gates MD Copies to: ~ Date of Service: 01/27/2023 Subjective Subjective HPI: Patient states his back hurts but his right leg feels much better. Exam Physical Exam Vital Signs: Temp Pulse Resp BP Pulse Ox O2 Del Method 97.3 F L 42 L 18 117/70 96 Room Air 01/27/23 03:20 01/27/23 03:20 01/27/23 03:20 01/27/23 03:20 01/27/23 03:20 01/27/23 03:20 Narrative: Patient appears to have grossly normal strength lower extremities bilaterally atminimum he is at baseline. His wound is healing well. He is alert and orientedby 3 Const General: cooperative Objective Lab Results Most Recent Labs: 01/26/23 10:25: Urine Opiates Screen Positive H, Ur Barbiturates Screen Negative, Ur Phencyclidine Scrn Negative, Ur Amphetamines Screen Negative, U Benzodiazepines Scrn Positive H, Urine Cocaine Screen Negative, U Marijuana (THC) Screen Positive H 01/26/23 05:43: PHA Creatinine Clear 185.92, Sodium 143 D, Potassium 4.2, Chloride 110 H, Carbon Dioxide 26.7, Anion Gap 10.5, BUN 9, Creatinine 0.69 L, Est GFR (CKD-EPI) > 60.0, Glucose 136 H, Calcium 8.8 01/26/23 05:43: Corrected WBC 16.3 H, Uncorrected WBC Count 16.3 H, RBC 4.46, Hgb 12.6 L, Hct 38.8, MCV 87.1, MCH 28.2, MCHC 32.4 L, RDW 16.6 H, Plt Count 114L, MPV 11.9 H, Neut % (Auto) 92.3, Lymph % (Auto) 5.1, Emmet % (Auto) 2.0, Eos % (Auto) 0.0, Baso % (Auto) 0.6, Nucleat RBC Rel Count 0.0, Neut # (Auto) 15.1 H, Lymph # (Auto) 0.8 L, Emmet # (Auto) 0.3, Eos # (Auto) 0.0, Baso # (Auto) 0.1 Assessment/Plan Assessment/Plan (1) Lumbar disc herniation with radiculopathy: Plan: Postoperative day #1 the patient actually looks very good I would recommend discharge to home full instructions have been given. He will follow-up in the office in 1 month. Code(s): M51.16 - Intervertebral disc disorders with radiculopathy, lumbar region Status: Acute Documented By: Phoenix Chavez MD 01/27/23 075 Signed By: <Electronically signed by MD Phoenix Chavez> 01/27/23750 [facility] Work Phone: [phone]) 539-824209-13-2023 Progress note Author Master Siegel [facility] January 26, 2023 9:35am Note Date/Time January 26, 2023 9:34am [facility] [address] [place], [place] [id number] Cardiology Progress Note Signed Patient: Elijah Wylie Jr MR#: [id number] : 1975 Acct:[id number] Age/Sex: 47 / M Adm Date: 3 Loc: 4N Room: [address] [place] [address] Type: ADM IN Attending Dr: Nano Gates MD Copies to: ~ Date of Service: 01/26/2023 Subjective Interval history: No cardiac complaint. Remains bradycardic heart rate below 50 Exam Physical Exam Vital Signs: Temp Pulse Resp BP Pulse Ox O2 Del Method 97.6 F 45 L 20 115/70 95 Room Air 01/25/23 19:42 01/25/23 19:42 01/25/23 19:42 01/25/23 19:42 01/25/23 19:42 01/25/23 21:45 Eyes General: appearance normal, both eyes and all related structures Pupils: PERRL Neck Neck: normal visual inspection, supple and no lymphadenopathy noted Neck mass: No Thyroid: thyroid normal Carotids: normal carotid upstroke Chest Chest palpation & inspection: normal inspection of the chest Resp Effort & Inspection: normal respiratory effort Auscultation: clear to auscultation bilaterally Cardio Palpation: normal PMI Rate: regular rate and bradycardic Rhythm: regular rhythm Heart Sounds: S1 normal and S2 normal GI Palpation: soft and no hepatosplenomegaly Percussion: normal to percussion Auscultation: normal bowel sounds Extrem General: full ROM, capillary refill normal and no clubbing, cyanosis or edema Objective Labs 01/24/23 21:55 01/25/23 00:12 A&P - Cardiology (1) Lumbar disc herniation with radiculopathy: Code(s): M51.16 - Intervertebral disc disorders with radiculopathy, lumbar region Status: Acute Plan Assessment 1. Coronary artery disease with Prior presentation with acute myocardial infarction and sudden cardiac . Underwent PCI to the [facility] 3 years ago. He has been stable cardiac rodriguez. Repeat cardiac catheterization showed widely patent stent. Prior to the patient injuring his back he reported functional class I with no cardiac symptoms 2. Sinus bradycardia due to beta-derek and a prior treatment with calcium channel derek 3. Intractable back pain with herniated disc 4. Hyperlipidemia 5. Obesity Plan 1. Cardiac rodriguez it appears the patient operative risk is acceptable. He has nocardiac symptoms and had normal cardiovascular exam except for mild sinus bradycardia due to beta-derek. He described functional class I. His operative risk is less than 2% based on ACC/AHA guidelines 2. Would recommend to hold aspirin prior to surgery 3. We will reduce the dose of beta-derek in view of his bradycardia. To 3.25twice daily with parameters to hold if heart rate less than 60. I advised the staff to hold Coreg today 4. Echocardiogram noted Documented By: Master Siegel MD 01/26/23932 Signed By: <Electronically signed by MD Master Siegel> 01/26/23934 [facility] Work Phone: 1(970) 509-385809-13-2023 Progress note Author Nano Gates [facility] January 26, 2023 9:25am Note Date/Time January 26, 2023 9:25am [facility] [address] [place] [address] Hospitalist Progress Note Signed Patient: Elijah Wylie Jr MR#: [id number] : 1975 Acct:[id number] Age/Sex: 47 / M Adm Date: 3 Loc: 4N Room: [address] [place] [address] Type: ADM IN Attending Dr: Nano Gates MD Copies to: ~ Date of Service: 01/26/2023 Subjective Subjective Narrative: Uneventful night. No chest pain palpitation. No abdominal pain, nausea or vomiting. No cough or congestion. Exam Physical Exam Vital Signs: Temp Pulse Resp BP Pulse Ox O2 Del Method 97.6 F 45 L 20 115/70 95 Room Air 01/25/23 19:42 01/25/23 19:42 01/25/23 19:42 01/25/23 19:42 01/25/23 19:42 01/25/23 21:45 Narrative: [pt is awake and alert. oriented to place, time and person HEENT: [place] conjunctiva and NL buccal mucosa Neck: Supple, no tenderness Endocrine: No Thyromegaly. Vascular: No JVD or carotid bruit. Lymphatic: No cervical lymphadenopathy. Chest: CTA no DTP. Heart RRR, no extra sound or murmur. Abd: Soft, no tenderness, no rebound and no rigidity. Increase abd girth therefore clinically I could not exclude the possibility of intra abd mass or organomegaly. LE: No cyanosis or clubbing, no varices or edema. Neuro: A A O. Nl speech, comprehension and attention. Patient is able to lift up his lower extremities against resistance. Sensory loss involving the right leg associated with L4-5 distribution []] Objective Lab Results 01/24/23 21:55 01/25/23 00:12 Meds Allergies and Active Meds Allergies cefaclor [From Ceclor] Adverse Reaction (Verified 01/24/23 21:31) Hives NSAIDS (Non-Steroidal Anti-Inflamma Adverse Reaction (Verified 01/24/23 21:31) Unknown Reaction Sulfa (Sulfonamide Antibiotics) Adverse Reaction (Verified 01/24/23 21:31) skin reaction sulfamethoxazole [From Bactrim] Adverse Reaction (Verified 01/24/23 21:31) skin reaction trimethoprim [From Bactrim] Adverse Reaction (Verified 01/24/23 21:31) skin reaction Active Meds: Active Medications Generic Name Dose Route Start Last Admin Trade Name Freq PRN Reason Stop Dose Admin Acetaminophen 1,000 mg 01/24/23 23:54 Acetaminophen 500 Mg Tablet PO 01/24/24 23:53 Q6HR PRN Pain Scale 1 - 3 or fever Alprazolam 2 mg 01/25/23 00:31 01/25/23 21:34 Alprazolam 0.5 Mg Tablet PO 07/24/23 00:30 2 mg BID PRN Administration Anxiety Atorvastatin Calcium 80 mg 01/25/23 21:00 01/25/23 21:33 Atorvastatin 80 Mg Tablet PO 01/25/24 20:59 80 mg QPM LINDSEY Administration Baclofen 5 mg 01/25/23 23:00 Baclofen 10 Mg Tablet PO 01/25/24 22:59 TID LINDSEY Carvedilol 3.125 mg 01/25/23 17:00 01/26/23 09:18 Carvedilol 3.125 Mg Tablet PO 01/25/24 16:59 Not Given BID.WITH.MEALS LINDSEY Sodium Chloride 1,000 ml/ 0 ml 01/26/23 11:30 Gentamicin Sulfate 80 mg IRRIGATION 01/26/23 11:31 ONCE ONE Cyanocobalamin 1,000 mcg 01/25/23 09:00 01/26/23 09:18 Cyanocobalamin 500 Mcg Tablet PO 01/25/24 08:59 Not Given DAILY LINDSEY Dexamethasone Sodium Phosphate 4 mg 01/25/23 10:00 01/25/23 18:27 Dexamethasone Sod Phosphate 4 Mg/Ml Vial IV-PUSH 01/25/24 09:59 4 mg Q8H LINDSEY Administration Hydromorphone HCl 0.5 mg 01/25/23 08:49 01/25/23 18:27 Hydromorphone 0.5 Mg/0.5 Ml Syringe IV-PUSH 0.5 mg Q4H PRN Administration Pain Scale 8 - 10 Lisinopril 5 mg 01/25/23 09:00 01/26/23 09:18 Lisinopril 5 Mg Tablet PO 01/25/24 08:59 Not Given DAILY LINDSEY Montelukast Sodium 10 mg 01/25/23 00:30 01/25/23 21:33 Montelukast 10 Mg Tablet PO 01/25/24 00:29 10 mg HS LINDSEY Administration Naloxone HCl 0.1 mg 01/24/23 23:54 Naloxone Hcl 0.4 Mg/Ml Vial IV-PUSH 01/24/24 23:53 Q2M PRN Opioid Reversal Nicotine 1 each 01/25/23 00:30 01/25/23 10:01 Nicotine Patch 21 Mg/24hr 1 Each Patch.Td24 TRANSDERML 03/06/23 09:01 1 each DAILY LINDSEY Administration Nitroglycerin 0.4 mg 01/25/23 00:00 Nitroglycerin 0.4 Mg Tab.Subl SUBLINGUAL 01/25/24 00:00 Q5M PRN chest pain Oxycodone/Acetaminophen 1 tab 01/24/23 23:54 01/25/23 21:39 Oxycodone/Acetaminophen 5-325 Mg Tablet PO 1 tab Q4H PRN Administration Pain Scale 4 - 7 Pantoprazole Sodium 40 mg 01/25/23 09:00 01/26/23 09:18 Pantoprazole 40 Mg Tablet.Dr PO 01/25/24 08:59 Not Given BID LINDSEY Sertraline HCl 100 mg 01/25/23 09:00 01/26/23 09:18 Sertraline 100 Mg Tablet PO 01/25/24 08:59 Not Given DAILY LINDSEY Sodium Chloride 0 ml 01/25/23 06:00 01/25/23 21:34 Sodium Chloride 0.9 % 10 Ml Syringe IV-PUSH 01/25/24 05:59 10 ml QSHIFT LINDSEY Administration Sodium Chloride 10 ml 01/25/23 06:17 Sodium Chloride 0.9 % 10 Ml Syringe IV-PUSH 01/25/24 06:16 PRN PRN Flush Sucralfate 1 gm 01/25/23 00:30 01/26/23 09:17 Sucralfate 1 Gm Tablet PO 01/25/24 00:29 Not Given TID..[facility] A&P - Hospitalist Assessment/Plan (1) Intractable back pain: (2) Radiculopathy: (3) Bulging discs: (4) Bradycardia, sinus: (5) Anxiety: (6) CAD (coronary artery disease): Plan Intractable back pain Radiculopathy Bulging discs at L4-L5, L5-S1 Patient will be taken to the operating room this afternoon. Defer further needed diagnostic and therapeutic intervention relative to his back pain to spine surgery team given their expertise. Postoperative surgical related issues including ambulation instructions, pain management, pharmacological DVT prophylaxis, monitoring for wound care, wound healing, wound dehiscence, wound infection are to be carried out by spine surgery team. Chronic conditions: Sinus bradycardia?monitor telemetry, home medications, discontinue Cardizem. I started him on Coreg 6.25 twice a day with holding parameters Anxiety?monitor, will resume home medications Tobacco dependence?nicotine patch daily, tobacco cessation counseling was provided History of cardiac arrest, CAD status post stent History of Monica-en-Y gastric bypass DVT PPx-SCDs, no pharmacological therapy pending possible surgery Diet order-regular CODE STATUS-full code Documented By: Nano Gates MD 01/26/23922 Signed By: <Electronically signed by Nano Gates MD> 01/26/23924 [facility] Work Phone: [phone]) 728-431509-12-2023 Progress note Author Mendoza Steward [facility] [place] 12th, 2023 4:22pm Note Date/Time January 25, 2023 4:20pm [facility] [address] [place], [place] [id number] Anesthesia Progress Note Draft Patient: Elijah Wylie Jr MR#: [id number] : 1975 Acct:[id number] Age/Sex: 47 / M Adm Date: 3 Loc: 4N Room: [address] [place] [address] Type: ADM IN Attending Dr: Nano Gates MD Copies to: ~ Anesthesia Progress Note Narrative Narrative: Patient record reviewed in anticipation of planned Lumbar Discectomy for tomorrow 01-26-[address] Chavez. Patient with a significant h/o sudden cardiac in the event of SC with subsequent stent to RCA. Cardiology assessment/clearance and Echocardiogram appreciated and reviewed. PMHx also significant for Monica-en-Y Gastric bypass surgery, Asthma/Smoker, Anxiety, Depression. No apparent contraindications to proceeding with planned procedure tomorrow. Documented By: Mendoza Steward MD 01/25/23 161 6 Signed By: [facility] Work Phone: [phone]) 858-747809-12-2023 Consult note Author Phoenix Chavez [facility] January 25, 2023 12:19pm Note Date/Time January 25, 2023 12:20pm [facility] [address] [place], [place] [id number] Neurosurgery Consult Note Signed Patient: Elijah Wylie Jr MR#: [id number] : 1975 Acct:[id number] Age/Sex: 47 / M Adm Date: 3 Loc: 4N Room: [address] [place] [address] Type: ADM IN Attending Dr: Nano Gates MD Copies to: MD Nano Ch MD Seth M Ruggles,DO~ HPI History of Present Illness Consult Date: 01/25/2023 Requesting Provider: CC: Nano Gates MD Reason for Consult: Lumbar radiculopathy, low back pain History of Present Illness: 47-year-old male admitted to the emergency room. Past medical history of cardiac arrest with anoxic brain injury left-sided facial droop, left arm and left leg numbness and tingling, STEMI with emergent PTCA for this RCA, Cqpr-gv-Obibjssi bypass, chronic back pain, HLD, GERD. Presents to the emergency room with complaints of intractable back and right radicular leg pain. Patient reports about 3 weeks ago he bent over to hand picker a wrench in the yard and felt a ripping feeling in my back right above my butt, like someone stabbing in the back with a knife . He finished working on the engine he was working on this [place] porch for about 30 minutes after which he could not move. Over the last 3 weeks he has had increasing pain, numbness and tingling in his right leg, depending on how he moves sometimes his left leg. He also reports numbness in his groin. Patient does state that he has been incontinent of urine a couple times. The pain is very severe. He is unable to stand for more than 10 to 15 minutes without severe pain in his leg he notes right foot weakness. He has no left leg symptoms. He has had previous back surgery with a microdiscectomy performed by Dr. Glasgow from [place]. Patient denies fevers or, chills, chestpain or shortness of breath. Review of Systems Review of Systems All other systems reviewed & are negative unless noted below or in HPI [facility] Medical History Anxiety Asthma Depression Gastric ulcer History of cardiac arrest Myocardial infarct Surgical History Gastric bypass status for obesity History of Monica-en-Y gastric bypass Hx of heart artery stent Previous back surgery Family History Father Myocardial infarction Social History Smoking Status: Current every day smoker (1-2 packs a day) Tobacco Type: cigarettes Substance Use Type: None, Alcohol (occasionally) and Marijuana (medical ) Social History Comments: live in [facility] Medications and Allergies Allergies cefaclor [From Ceclor] Adverse Reaction (Verified 01/24/23 21:31) Hives NSAIDS (Non-Steroidal Anti-Inflamma Adverse Reaction (Verified 01/24/23 21:31) Unknown Reaction Sulfa (Sulfonamide Antibiotics) Adverse Reaction (Verified 01/24/23 21:31) skin reaction sulfamethoxazole [From Bactrim] Adverse Reaction (Verified 01/24/23 21:31) skin reaction trimethoprim [From Bactrim] Adverse Reaction (Verified 01/24/23 21:31) skin reaction Home Medications alprazolam 1 mg tablet 2 mg PO BID PRN Anxiety 11/18/20 [History Confirmed 01/24/23] pantoprazole 40 mg tablet,delayed release (Protonix) 40 mg PO BID 11/18/20 [History Confirmed 01/24/23] sertraline 50 mg tablet (Zoloft) 100 mg PO DAILY 11/18/20 [History Confirmed 01/24/23] aspirin 81 mg chewable tablet (Children's Aspirin) 81 mg PO DAILY #0 tabs 11/21/20 [Rx Confirmed 01/24/23] nitroglycerin 0.4 mg sublingual tablet (Nitrostat) 0.4 mg sublingual Q5M PRN chest pain 30 days #25 tabs 11/21/20 [Rx Confirmed 01/24/23] atorvastatin 80 mg tablet (Lipitor) 80 mg PO QPM 12/11/20 [History Confirmed 01/24/23] lisinopril 5 mg tablet (Zestril) 5 mg PO DAILY 12/11/20 [History Confirmed 01/24/23] cyanocobalamin (vitamin B-12) 1,000 mcg capsule 1,000 mcg PO DAILY #30 caps 12/18/20 [Rx Confirmed 01/24/23] diltiazem HCl 120 mg capsule,extended release 24 hr 120 mg PO DAILY #30 caps 12/18/20 [Rx Confirmed 01/24/23] ergocalciferol (vitamin D2) 1,250 mcg (50,000 unit) capsule 1,250 mcg PO Th@0900#12 caps 12/18/20 [Rx Confirmed 01/24/23] multivitamin 1 tab PO DAILY #30 tabs 12/18/20 [Rx Confirmed 01/24/23] sucralfate 1 gram tablet 1 g PO TID.AC.HS #120 tabs 12/18/20 [Rx Confirmed 01/24/23] montelukast 10 mg tablet 10 mg PO DAILY 01/25/23 [History Confirmed 01/25/23] Exam Physical Exam Vital Signs: Temp Pulse Resp BP Pulse Ox O2 Del Method 98.7 F 44 L 18 107/65 94 L Room Air 01/25/23 03:25 01/25/23 03:25 01/25/23 03:25 01/25/23 03:25 01/25/23 03:25 01/25/23 04:00 Narrative: Neurologic: Patient is alert and oriented to time place and person cooperative and gives a good history Sensory: Normal light touch upper and lower extremities and trunk throughout allmajor dermatomes, with the exception of the lateral leg on the right and the medial baptiste on the right and medial thigh on the right which are decreased to light touch. Patient also has decreased light touch entire left upper extremityfrom an old stroke Spine: No palpable tenderness cervical spine, thoracic spine, lumbar spine Motor: Deltoid bicep tricep and fish cutter, iliopsoas quadricep anterior tibial gastrocnemius are grossly 5/5, with the exception of the right anterior tibial which is 4/5 as well as the EHL. Cerebellar: No lead pipe rigidity normal rapid alternating movements Reflexes: 0-1+ upper and lower extremities bilaterally with no clonus, negative Germaine sign Cranial nerve examination: Cranial nerve I: smell is intact Cranial nerve II: vision full to all quadrants bilateral Cranial nerve III: pupils are equal round reactive to light unable to do a funduscopic examination Cranial nerve IV through : Extraocular motion full to all quadrants Cranial nerve V: V1 V2 V3 intact Cranial nerve VII: Left facial droop Cranial nerve VIII: Hearing intact bilaterally Cranial nerve IX through XI: Patient can phonate well able to swallow palate elevates able to shrug shoulders Cranial nerve XII: Tongue midline hips: normal range of motion without River's sign Skin: Reasonable turgor and texture no unusual bruising Extremities: 0-1+ pulses upper and lower Abdomen: Soft nontender Lungs: Clear bilaterally Heart: Regular rate and rhythm without murmur rub or gallop Neck: Supple Head: Atraumatic Results Lab Results Labs: Laboratory Results - Last 48 hrs. 01/25/23 00:12: Potassium 3.8 01/24/23 22:56: Urine Color Yellow, Urine Appearance Clear, Urine pH 6.0, Ur Specific [place] 1.006, Urine Protein Negative, Urine Glucose (UA) Normal, UrineKetones Negative, Urine Occult Blood Negative, Urine Nitrite Negative, Urine Bilirubin Negative, Urine Urobilinogen Normal, Ur Leukocyte Esterase Negative 01/24/23 21:55: PT 11.9, INR 1.0, APTT 31.6 01/24/23 21:55: PHA Creatinine Clear 142.54, Sodium 137, Potassium 3.7, [id number], Carbon Dioxide 25.0, Anion Gap 11.7, BUN 6 L, Creatinine 0.90, Est GFR (CKD-EPI) > 60.0, Glucose 118 H, Calcium 8.6, Total Bilirubin 0.8, AST 24, ALT 12, Alkaline Phosphatase 78, Total Protein 6.1 L, Albumin 3.7, Globulin 2.4, Albumin/Globulin Ratio 1.5 01/24/23 21:55: Corrected WBC 9.2, Uncorrected WBC Count 9.2, RBC 4.41, Hgb 12.6L, Hct 38.2 L, MCV 86.6, MCH 28.6, MCHC 33.1, RDW 16.6 H, Plt Count 133 L, MPV 11.9 H, Neut % (Auto) 57.7, Lymph % (Auto) 30.9, Emmet % (Auto) 5.3, Eos % (Auto)4.9, Baso % (Auto) 1.2, Nucleat RBC Rel Count 0.2, Neut # (Auto) 5.3, Lymph # (Auto) 2.9, Emmet # (Auto) 0.5, Eos # (Auto) 0.5 H, Baso # (Auto) 0.1, Monocyte Dist Width 21.74 H Imaging MRI - spine: report reviewed and image reviewed Assessment/Plan (1) Lumbar disc herniation with radiculopathy: Plan: Independently reviewed the MRI of the lumbar spine and the report. The patient has a large disc herniation L4-5 on the right occupying a large portion of the canal with inferior migration. He is extremely uncomfortable he has weakness ofthe anterior tibial on the right also significant numbness. He is disabled by the symptoms. He is in need of a microdiscectomy L4-5 on the right. I discussed with the patient the indication operation postop course risk benefits complications he understands and agrees will need to have cardiac clearance. Ifhe is approved for surgery by cardiology he could potentially undergo microdiscectomy tomorrow afternoon. Code(s): M51.16 - Intervertebral disc disorders with radiculopathy, lumbar region Status: Acute Documented By: Phoenix Chavez MD 01/25/23 0736 Signed By: <Electronically signed by MD Phoenix Chavez> 01/25/23 1219 [facility] Work Phone: 1(813) 217-232409-12-2023 Consult note Author Master Siegel [facility] January 25, 2023 10:58am Note Date/Time January 25, 2023 10:52am [facility] [address] [place] [address] Cardiology Consult Note Signed Patient: Elijah Wylie Jr MR#: [id number] : 1975 Acct:[id number] Age/Sex: 47 / M Adm Date: 3 Loc: Room: [address] [place] [address] Type: ADM IN Attending Dr: Nano Gates MD Copies to: MD Nano Simeon MD Seth M Ruggles,DO~ Cardiology HPI History of Present Illness Consult Date: 01/25/23 Reason for Consult: Cardiac consultation requested for preoperative risk assessment HPI: Mr. Wylie is a 47 year old male known to our practice. 3 years ago he presented with sudden cardiac within the context of acute inferior wall myocardial infarction. He underwent PCI to the RCA. Subsequently he presented with chest pain and repeat cardiac catheterization showed widely patent stent and minimal spasm of the distal LAD. Patient report because of geographical location he has been following with the [facility]. Has been seeing Dr. Friedman. He report he underwent stress test few years back and was negative. Patient report about 3 weeks ago he injured his back. He presented to hospital with intractable back pain. He was seen and evaluated by neurology and neurosurgery. And he is scheduled to undergo lumbar spine surgery in the near future. I was asked to see him for preoperative risk assessment. Prior to him injuring his back he reported functional class I. Report he is able to climb 1-2 flight of stairs without complaint. He report his cardiac status has been stable. On presentation he denies any cardiac complaint. He was noted to be mildly bradycardic. He is on chronic beta-derek therapy. He has been on aspirin chronically. Reviewing the record indicate he was in the hospital a fewweeks back for atypical chest pain and his work-up was benign cardiac-rodriguez Review of Systems Review of Systems All other systems reviewed & are negative unless noted below or in HPI Constitutional Constitutional: Reports system reviewed and no additional complaints, except as documented Eyes Eyes: Reports system reviewed and no additional complaints, except as documented ENT Ears, Nose, Mouth, and Throat: Reports system reviewed and no additional complaints, except as documented Cardiovascular Cardiovascular: Reports system reviewed and no additional complaints, except as documented Respiratory Respiratory: Reports system reviewed and no additional complaints, except as documented Gastrointestinal Gastrointestinal: Reports system reviewed and no additional complaints, except as documented Genitourinary Genitourinary: Reports system reviewed and no additional complaints, except as documented Musculoskeletal Musculoskeletal: Reports system reviewed and no additional complaints, except asdocumented Comments: Back pain and bilateral leg pain Neurologic Neurologic: Reports system reviewed and no additional complaints, except as documented Psychiatric Psychiatric: Reports system reviewed and no additional complaints, except as documented Endocrine Endocrine: Reports system reviewed and no additional complaints, except as documented Hematologic/Lymphatic Hematologic/Lymphatic: Reports system reviewed and no additional complaints, except as documented [facility] Source: Unable to Obtain Medical History Anxiety Asthma Depression Gastric ulcer History of cardiac arrest Myocardial infarct Surgical History Gastric bypass status for obesity History of Monica-en-Y gastric bypass Hx of heart artery stent Previous back surgery Family History Father Myocardial infarction Social History Smoking Status: Current every day smoker (1-2 packs a day) Tobacco Type: cigarettes Substance Use Type: None, Alcohol (occasionally) and Marijuana (medical ) Social History Comments: live in [facility] Medications and Allergies Allergies cefaclor [From Ceclor] Adverse Reaction (Verified 01/24/23 21:31) Hives NSAIDS (Non-Steroidal Anti-Inflamma Adverse Reaction (Verified 01/24/23 21:31) Unknown Reaction Sulfa (Sulfonamide Antibiotics) Adverse Reaction (Verified 01/24/23 21:31) skin reaction sulfamethoxazole [From Bactrim] Adverse Reaction (Verified 01/24/23 21:31) skin reaction trimethoprim [From Bactrim] Adverse Reaction (Verified 01/24/23 21:31) skin reaction Home Medications alprazolam 1 mg tablet 2 mg PO BID PRN Anxiety 07/06/21 [History Confirmed 01/24/23] pantoprazole 40 mg tablet,delayed release (Protonix) 40 mg PO BID 11/18/20 [History Confirmed 01/24/23] sertraline 50 mg tablet (Zoloft) 100 mg PO DAILY 11/18/20 [History Confirmed 01/24/23] aspirin 81 mg chewable tablet (Children's Aspirin) 81 mg PO DAILY #0 tabs 11/21/20 [Rx Confirmed 01/24/23] nitroglycerin 0.4 mg sublingual tablet (Nitrostat) 0.4 mg sublingual Q5M PRN chest pain 30 days #25 tabs 11/21/20 [Rx Confirmed 01/24/23] atorvastatin 80 mg tablet (Lipitor) 80 mg PO QPM 12/11/20 [History Confirmed 01/24/23] lisinopril 5 mg tablet (Zestril) 5 mg PO DAILY 12/11/20 [History Confirmed 01/24/23] cyanocobalamin (vitamin B-12) 1,000 mcg capsule 1,000 mcg PO DAILY #30 caps 12/18/20 [Rx Confirmed 01/24/23] diltiazem HCl 120 mg capsule,extended release 24 hr 120 mg PO DAILY #30 caps 12/18/20 [Rx Confirmed 01/24/23] ergocalciferol (vitamin D2) 1,250 mcg (50,000 unit) capsule 1,250 mcg PO Th@0900#12 caps 12/18/20 [Rx Confirmed 01/24/23] multivitamin 1 tab PO DAILY #30 tabs 12/18/20 [Rx Confirmed 01/24/23] sucralfate 1 gram tablet 1 g PO TID.AC.HS #120 tabs 12/18/20 [Rx Confirmed 01/24/23] montelukast 10 mg tablet 10 mg PO DAILY 01/25/23 [History Confirmed 01/25/23] Exam Physical Exam Vital Signs: Temp Pulse Resp BP Pulse Ox O2 Del Method 97.3 F L 47 L 12 111/74 93 L Room Air 01/25/23 08:36 01/25/23 08:36 01/25/23 08:36 01/25/23 08:36 01/25/23 08:36 01/25/23 10:25 Const General: cooperative, comfortable, no acute distress and well developed HEENT Head: atraumatic Mouth: oral mucosae normal Eyes General: appearance normal, both eyes and all related structures Pupils: PERRL Neck Neck: normal visual inspection, supple and no lymphadenopathy noted Neck mass: No Thyroid: thyroid normal Carotids: normal carotid upstroke Chest Chest palpation & inspection: normal inspection of the chest Resp Effort & Inspection: normal respiratory effort Auscultation: clear to auscultation bilaterally Cardio Palpation: normal PMI Rate: regular rate and bradycardic Rhythm: regular rhythm Heart Sounds: S1 normal and S2 normal GI Palpation: soft and no hepatosplenomegaly Percussion: normal to percussion Auscultation: normal bowel sounds Skin General: no rashes or lesions noted and dry skin Neuro General: patient alert, patient awake, patient oriented x3 and tone normal Extrem General: full ROM, capillary refill normal and no clubbing, cyanosis or edema Psych Mental Status: mental status grossly normal Results Labs 01/24/23 21:55 01/25/23 00:12 Lab results: Cardiac Enzymes 01/24/23 Range/Units 21:55 AST 24 (13-39) U/L CBC 01/24/23 Range/Units 21:55 RBC 4.41 (3.90-5.60) X10E6/uL Hgb 12.6 L (13.0-17.0) g/dL Hct 38.2 L (38.8-50.0) % Plt Count 133 L (150-450) x10E3/uL Neut # (Auto) 5.3 (1.8-7.7) x10E3/uL Lymph # (Auto) 2.9 (1.00-4.8) x10E3/uL Emmet # (Auto) 0.5 (0.0-0.8) x10E3/uL Eos # (Auto) 0.5 H (0.0-0.45) x10E3/uL Baso # (Auto) 0.1 (0.0-0.2) x10E3/uL Comprehensive Metabolic Panel 01/24/23 01/25/23 Range/Units 21:55 00:12 Sodium 137 (136-145) mmol/L Potassium 3.7 3.8 (3.5-5.1) mmol/L Chloride 104 (98-107) mmol/L Carbon Dioxide 25.0 (21.0-31.0) mmol/L BUN 6 L (7-25) mg/dL Creatinine 0.90 (0.70-1.30) mg/dL Glucose 118 H (70-100) mg/dL Calcium 8.6 (8.6-10.3) mg/dL AST 24 (13-39) U/L ALT 12 (7-52) U/L Alkaline Phosphatase 78 (34-104) U/L Total Protein 6.1 L (6.4-8.9) gm/dL Albumin 3.7 (3.5-5.7) gm/dL Intake and Output 01/24/23 01/25/23 01/25/23 23:59 07:59 15:59 Intake Total 200 / 200 Balance 200 / 200 Intake: Oral 200 / 200 Other: # Unmeasured Voids 3 # Bowel Movements 0 Weight 113.398 kg 112 kg Date of Last Bowel Movement 01/25/23 01/25/23 Patient Weight 01/25/23 23:59 Weight 112 kg Lab 01/24/23 21:55 PT 11.9 INR 1.0 APTT 31.6 EKG Interpretations EKG Attestation EKG: I reviewed this ECG and interpreted as documented below: (Sinusbradycardia) A&P - Cardiology (1) Lumbar disc herniation with radiculopathy: Code(s): M51.16 - Intervertebral disc disorders with radiculopathy, lumbar region Plan Assessment 1. Coronary artery disease with Prior presentation with acute myocardial infarction and sudden cardiac . Underwent PCI to the RCA 3 years ago. He has been stable cardiac rodriguez. Repeat cardiac catheterization showed widely patent stent. Prior to the patient injuring his back he reported functional class I with no cardiac symptoms 2. Sinus bradycardia due to beta-derek 3. Intractable back pain with herniated disc 4. Hyperlipidemia 5. Obesity Plan 1. Cardiac rodriguez it appears the patient operative risk is acceptable. He has nocardiac symptoms and had normal cardiovascular exam except for mild sinus bradycardia due to beta-derek. He described functional class I. His operative risk is less than 2% based on ACC/AHA guidelines 2. Would recommend to hold aspirin prior to surgery 3. We will reduce the dose of beta-derek in view of his bradycardia. To 3.25twice daily with parameters to hold if heart rate less than 60 4. Check echocardiogram Documented By: Master Siegel MD 01/25/23 1048 Signed By: <Electronically signed by MD Master Siegel> 01/25/23 1058 [facility] Work Phone: 1([phone]) 756-865609-12-2023 Progress note Author Nano Gates [facility] January 25, 2023 8:52am Note Date/Time January 25, 2023 8:52am [facility] [address] [place] [address] Hospitalist Progress Note Signed Patient: Elijah Wylie Jr MR#: [id number] : 1975 Acct:[id number] Age/Sex: 47 / M Adm Date: 3 Loc: 4N Room: 1B4461-7 Type: ADM IN Attending Dr: Nano Gates MD Copies to: ~ Date of Service: 01/25/2023 Subjective Subjective Narrative: Patient continues to report lower back pain with radiation to the right leg and occasionally to the left leg. Patient reported having numbing sensation in the right leg medially and intermittent urinary incontinence over the last 3 weeks. Patient was seen by Dr. Sidhu this morning. Exam Physical Exam Vital Signs: Temp Pulse Resp BP Pulse Ox O2 Del Method 97.3 F L 47 L 12 111/74 93 L Room Air 01/25/23 08:36 01/25/23 08:36 01/25/23 08:36 01/25/23 08:36 01/25/23 08:36 01/25/23 08:36 Narrative: [pt is awake and alert. oriented to place, time and person HEENT: [place] conjunctiva and NL buccal mucosa Neck: Supple, no tenderness Endocrine: No Thyromegaly. Vascular: No JVD or carotid bruit. Lymphatic: No cervical lymphadenopathy. Chest: CTA no DTP. Heart RRR, no extra sound or murmur. Abd: Soft, no tenderness, no rebound and no rigidity. Increase abd girth therefore clinically I could not exclude the possibility of intra abd mass or organomegaly. LE: No cyanosis or clubbing, no varices or edema. Neuro: A A O. Nl speech, comprehension and attention. Patient is able to lift up his lower extremities against resistance. Sensory loss involving the right leg associated with L4-5 distribution []] Objective Lab Results 01/24/23 21:55 01/25/23 00:12 Meds Allergies and Active Meds Allergies cefaclor [From Ceclor] Adverse Reaction (Verified 01/24/23 21:31) Hives NSAIDS (Non-Steroidal Anti-Inflamma Adverse Reaction (Verified 01/24/23 21:31) Unknown Reaction Sulfa (Sulfonamide Antibiotics) Adverse Reaction (Verified 01/24/23 21:31) skin reaction sulfamethoxazole [From Bactrim] Adverse Reaction (Verified 01/24/23 21:31) skin reaction trimethoprim [From Bactrim] Adverse Reaction (Verified 01/24/23 21:31) skin reaction Active Meds: Active Medications Generic Name Dose Route Start Last Admin Trade Name Freq PRN Reason Stop Dose Admin Acetaminophen 1,000 mg 01/24/23 23:54 Acetaminophen 500 Mg Tablet PO 01/24/24 23:53 Q6HR PRN Pain Scale 1 - 3 or fever Alprazolam 2 mg 01/25/23 00:31 01/25/23 00:46 Alprazolam 0.5 Mg Tablet PO 07/24/23 00:30 2 mg BID PRN Administration Anxiety Atorvastatin Calcium 80 mg 01/25/23 21:00 Atorvastatin 80 Mg Tablet PO 01/25/24 20:59 QPM LINDSEY Cyanocobalamin 1,000 mcg 01/25/23 09:00 Cyanocobalamin 500 Mcg Tablet PO 01/25/24 08:59 DAILY LINDSEY Dexamethasone Sodium Phosphate 4 mg 01/25/23 02:30 01/25/23 02:46 Dexamethasone Sod Phosphate 4 Mg/Ml Vial IV-PUSH 01/25/24 02:29 4 mg Q6H LINDSEY Administration Dexamethasone Sodium Phosphate 4 mg 01/25/23 08:30 Dexamethasone Sod Phosphate 4 Mg/Ml Vial IV-PUSH 01/25/24 08:29 Q8H LINDSEY Diltiazem HCl 120 mg 01/25/23 09:00 Diltiazem Cd.24hr 120 Mg Cap.Er.24h PO 01/25/24 08:59 DAILY LINDSEY Hydromorphone HCl 1 mg 01/24/23 23:54 Hydromorphone 0.5 Mg/0.5 Ml Syringe IV-PUSH Q4H PRN Pain Scale 8 - 10 Lisinopril 5 mg 01/25/23 09:00 Lisinopril 5 Mg Tablet PO 01/25/24 08:59 DAILY LINDSEY Montelukast Sodium 10 mg 01/25/23 00:30 01/25/23 00:47 Montelukast 10 Mg Tablet PO 01/25/24 00:29 10 mg HS LINDSEY Administration Naloxone HCl 0.1 mg 01/24/23 23:54 Naloxone Hcl 0.4 Mg/Ml Vial IV-PUSH 01/24/24 23:53 Q2M PRN Opioid Reversal Nicotine 1 each 01/25/23 00:30 01/25/23 00:47 Nicotine Patch 21 Mg/24hr 1 Each Patch.Td24 TRANSDERML 03/06/23 09:01 1 each DAILY LINDSEY Administration Nitroglycerin 0.4 mg 01/25/23 00:00 Nitroglycerin 0.4 Mg Tab.Subl SUBLINGUAL 01/25/24 00:00 Q5M PRN chest pain Oxycodone/Acetaminophen 1 tab 01/24/23 23:54 01/25/23 00:46 Oxycodone/Acetaminophen 5-325 Mg Tablet PO 1 tab Q4H PRN Administration Pain Scale 4 - 7 Pantoprazole Sodium 40 mg 01/25/23 09:00 Pantoprazole 40 Mg Tablet. PO 01/25/24 08:59 BID LINDSEY Sertraline HCl 100 mg 01/25/23 09:00 Sertraline 100 Mg Tablet PO 01/25/24 08:59 DAILY LINDSEY Sodium Chloride 0 ml 01/25/23 06:00 01/25/23 06:22 Sodium Chloride 0.9 % 10 Ml Syringe IV-PUSH 01/25/24 05:59 Not Given QSHIFT LINDSEY Sodium Chloride 10 ml 01/25/23 06:17 Sodium Chloride 0.9 % 10 Ml Syringe IV-PUSH 01/25/24 06:16 PRN PRN Flush Sucralfate 1 gm 01/25/23 00:30 01/25/23 00:47 Sucralfate 1 Gm Tablet PO 01/25/24 00:29 1 gm TID.AC.HS LINDSEY Administration A&P - Hospitalist Assessment/Plan (1) Intractable back pain: (2) Radiculopathy: (3) Bulging discs: (4) Bradycardia, sinus: (5) Anxiety: Plan Intractable back pain Radiculopathy Bulging discs at L4-L5, L5-S1 ? Consult neurosurgery ? Pain control?Tylenol, Percocet, Dilaudid ? Decadron every 6 hours been ordered -I discussed this case with Dr. Chavez who is planning to proceed with the surgical intervention tomorrow. Requested cardiac clearance. Chronic conditions: Sinus bradycardia?monitor telemetry, home medications, discontinue Cardizem. I started him on Coreg 6.25 twice a day with holding parameters Anxiety?monitor, will resume home medications Tobacco dependence?nicotine patch daily, tobacco cessation counseling was provided History of cardiac arrest, CAD status post stent History of Monica-en-Y gastric bypass DVT PPx-SCDs, no pharmacological therapy pending possible surgery Diet order-regular CODE STATUS-full code I discussed this case with Dr. Chavez and patient's at the bedside. Documented By: Nano Gates MD 01/25/23 0849 Signed By: <Electronically signed by Nano Gates MD> 01/25/23 0852 [facility] Work Phone: 1(285) 649-193709-12-2023 History and physical note Author Huy Dumont [facility] January 25, 2023 12:49am Note Date/Time January 24, 2023 11:36pm [facility] [address] [place] [address] Hospitalist H&P Signed Patient: Elijah Wylie Jr MR#: [id number] : 1975 Acct:[id number] Age/Sex: 47 / M Adm Date: 3 Loc: 4N Room: [address] [place] [address] Type: ADM INOo Attending Dr: Huy Dumont MD Copies to: MD Nohemy Gomez, RICHARD Mathews,~ HPI DATE OF EXAMINATION: 01/24/23 CHIEF COMPLAINT: intractable back pain HISTORY OF PRESENT ILLNESS: Mr. Aguiar is a 47-year-old male with a PMH of cardiac arrest with anoxic brain injury?left-sided facial droop, left arm and leg numbness and tingling, STEMI with emergent PTCA for dissected RCA, Monica-en-Y gastric bypass, chronic back pain, HLD, GERD the presents emergency room today with complaints of intractableback pain, sent over by neurology Dr. Moon. Patient reports about 3 weeks ago he had bent over to hand picker a wrench in the yard and felt a ripping feelingin my back right above my butt, like someone stabbed me in the back with a knife. He quotes that he finished working on the engine he was working on and sat on the porch and about 30 minutes he could not move. Over the last 3 weeks he has had increasing pain, numbness and tingling to his right leg, depending onhow he moves sometimes his left leg will go numb. He also reports that he is numb to his groin. He does state that he has been incontinent of urine a coupleof times as well. Today he went to see Dr. Moon who sent him to the emergency room for an MRI. He denies fever, chills, chest pain or shortness of breath. He reports that he is a 1 to 2 pack a day smoker, occasionally drinker,medical marijuana. EKG in the ER shows sinus bradycardia, patient states that he goes bradycardic at home. Chest x-ray without acute process. MRI of the lumbar spine was performed- At L4-L5: There is a circumferential disc bulge with a right subarticular and foraminal disc extrusion. There is caudal migration measuring 2.2 cm reaching the level of the right L5-S1 neural foramen. There is severe spinal canal stenosis with mass effect on the traversing right L5 nerve roots. There is moderate bilateral neural foraminal narrowing. ? At L5-S1: There is a broad-based disc bulge with facet hypertrophy. There is mild spinal canal stenosis. The extruded disc material reaches the roof of the right L5-S1 transverse foramen contributing to mass effect on the exiting right L5 nerve roots. There is endplate osteophyte formation contributing to moderate bilateral neural foraminal narrowing. No significant spinal canal narrowing. Patient was medicated with dexamethasone, Dilaudid and Zofran. He will be admitted to the [facility] telemetry floor under the care of the hospitalist team for further evaluation and treatment. Review of Systems Review of Systems Review of systems: A 10 point review of systems was obtained, negative unless noted in the HPI or below. [facility] Medical History (Updated 01/25/23 @ 00:11 by Shereen Iyer Jr, MD) Anxiety Asthma Depression Gastric ulcer History of cardiac arrest Myocardial infarct Surgical History (Updated 01/25/23 @ 00:11 by Shereen Iyer Jr, MD) Gastric bypass status for obesity History of Monica-en-Y gastric bypass Hx of heart artery stent Previous back surgery Family History Father Myocardial infarction Social History Smoking Status: Current every day smoker (1-2 packs a day) Tobacco Type: cigarettes Substance Use Type: None, Alcohol (occasionally) and Marijuana (medical ) Social History Comments: live in [facility] Medications and Allergies Allergies cefaclor [From Ceclor] Adverse Reaction (Verified 01/24/23 21:31) Hives NSAIDS (Non-Steroidal Anti-Inflamma Adverse Reaction (Verified 01/24/23 21:31) Unknown Reaction Sulfa (Sulfonamide Antibiotics) Adverse Reaction (Verified 01/24/23 21:31) skin reaction sulfamethoxazole [From Bactrim] Adverse Reaction (Verified 01/24/23 21:31) skin reaction trimethoprim [From Bactrim] Adverse Reaction (Verified 01/24/23 21:31) skin reaction Home Medications alprazolam 1 mg tablet 2 mg PO BID PRN Anxiety 11/18/20 [History Confirmed 01/24/23] pantoprazole 40 mg tablet,delayed release (Protonix) 40 mg PO BID 11/18/20 [History Confirmed 01/24/23] sertraline 50 mg tablet (Zoloft) 100 mg PO DAILY 11/18/20 [History Confirmed 01/24/23] aspirin 81 mg chewable tablet (Children's Aspirin) 81 mg PO DAILY #0 tabs 11/21/20 [Rx Confirmed 01/24/23] nitroglycerin 0.4 mg sublingual tablet (Nitrostat) 0.4 mg sublingual Q5M PRN chest pain 30 days #25 tabs 11/21/20 [Rx Confirmed 01/24/23] atorvastatin 80 mg tablet (Lipitor) 80 mg PO QPM 12/11/20 [History Confirmed 01/24/23] lisinopril 5 mg tablet (Zestril) 5 mg PO DAILY 12/11/20 [History Confirmed 01/24/23] cyanocobalamin (vitamin B-12) 1,000 mcg capsule 1,000 mcg PO DAILY #30 caps 12/18/20 [Rx Confirmed 01/24/23] diltiazem HCl 120 mg capsule,extended release 24 hr 120 mg PO DAILY #30 caps 12/18/20 [Rx Confirmed 01/24/23] ergocalciferol (vitamin D2) 1,250 mcg (50,000 unit) capsule 1,250 mcg PO Th@0900#12 caps 12/18/20 [Rx Confirmed 01/24/23] multivitamin 1 tab PO DAILY #30 tabs 12/18/20 [Rx Confirmed 01/24/23] sucralfate 1 gram tablet 1 g PO TID.AC.HS #120 tabs 12/18/20 [Rx Confirmed 01/24/23] montelukast 10 mg tablet 10 mg PO DAILY 01/25/23 [History Confirmed 01/25/23] Exam Physical Exam Vital Signs: Temp Pulse Resp BP Pulse Ox O2 Del Method 97.3 F L 46 L 18 116/69 95 Room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 friction rub. No gallop. Pulmonary: Effort: Pulmonary effort is normal. No respiratory distress. Breath sounds: Normal breath sounds. No wheezing or rales. Abdominal: General: Bowel sounds are normal. Palpations: Abdomen is soft. Musculoskeletal: General: Normal range of motion. Cervical back: Neck supple. Skin: General: Skin is warm and dry. Capillary Refill: Capillary refill takes less than 2 seconds. Coloration: Skin is not pale. Neurological: Mental Status: He is alert and oriented to person, place, and time. Cranial Nerves: No cranial nerve deficit. Psychiatric: Mood and Affect: Mood normal. Mood is not anxious or depressed. Behavior: Behavior normal. Thought Content: Thought content normal. Judgment: Judgment normal. Review of Systems Constitutional: Negative for activity change, appetite change, fatigue and unexpected weight change. HENT: Negative for ear pain and trouble swallowing. Eyes: Negative for pain and visual disturbance. Respiratory: Negative for chest tightness and shortness of breath. Cardiovascular: Negative for chest pain, palpitations and leg swelling. Gastrointestinal: Negative for abdominal pain and blood in stool. Endocrine: Negative for cold intolerance and heat intolerance. Genitourinary: Negative for dysuria, hematuria and scrotal swelling. Musculoskeletal: Positive for back pain and gait problem. Negative for arthralgias and myalgias. (more content not included)...[facility]12-29-2022 History of Present illness Narrative* Jazmine Estrella, - 05/13/2022 2:42 PM EST Images from the original note were not included. [facility] SECTION OF [facility] OUTPATIENT VISIT DATE May 13, 2022 PRIMARY CARE PHYSICIAN: Meng Mathews [address] [place] [address] [address] [place] [id number] HISTORY OF PRESENT ILLNESS: Mr. Wylie is a 47 year old male. The patient presents to establish local care to history of coronary disease status post stenting of his right coronary artery x3 in the setting of acute inferior wall myocardial infarction in November 2020. Since that time he has been plagued by degenerative disc disease with now chronic back discomfort. He unfortunately has apparently had challenges with intermittent loss of visits with his personal investment adviser. He apparently had some challenges as well with possible vasospasm for which metoprolol was changed to propanolol. He apparently was on an HU inhibitor as well which was discontinued and he was apparently placed therefore on diltiazem. Currently from a cardiac standpoint he is stable and asymptomatic. He denies chest,, dyspnea, with apnea, paroxysmal nocturnal dyspnea, palpitations, near-syncope, syncope, GI/ bleeding or melena. The patient is and lives at home with his who accompanies him today. He has grown children. 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 He smokes a pack of cigarettes per day which isdown from significant previous. He uses THC currently to help with pain. This has been more recent due to his back discomfort. Cardiac risk factors: Age, gender, hypertension, hyperlipidemia, tobacco abuse, known CAD Pression: 1. Coronary disease status post acute inferior wall microinfarction status post stenting x3 RCA 2. Hypertension 3. Hyperlipidemia 4. History of gastric bypass surgery. Monica-en-Y. Patient's all-time highest weight was well over 500 pounds he states. 5. History of degenerative disc disease PLAN AND RECOMMENDATIONS: The patient appears stable without symptoms of suggest angina or cardiac decompensation. We unfortunately do not have old records nor recent labs. His EKG appears stable. He appears to be on guideline directed therapy. He may discontinue his Brilinta. At this point time we would update an echocardiogram to reeval heart structure and function. We will follow-up with him in 3 months time for reevaluation. We will try to obtain old records in the interim. Dietary and lifestyle modification was otherwise reemphasized to facilitate risk factor reduction and prevention of future cardiovascular events. Vitals: BP 138/96 (BP Site: Left Arm, BP Position: Sitting, BP Cuff Size: Large Adult) Pulse (!) 56 Ht 195.6 cm (6' 5 ) Wt 113.9 kg (251 lb) SpO2 97% BMI 29.76 kg/m Physical Exam Vitals reviewed. Constitutional: General: He is not in acute distress. Appearance: Normal appearance. He is well-developed. He is not diaphoretic. HENT: Head: Normocephalic and atraumatic. Right Ear: External ear normal. Left Ear: External ear normal. Nose: Nose normal. Eyes: General: No scleral icterus. Right eye: No discharge. Left eye: No discharge. Pupils: Pupils are equal, round, and reactive to light. Neck: Thyroid: No thyromegaly. Vascular: No carotid bruit or JVD. Cardiovascular: Rate and Rhythm: Normal rate and regular rhythm. Heart sounds: No murmur heard. No friction rub. No gallop. Pulmonary: Effort: Pulmonary effort is normal. No respiratory distress. Breath sounds: Normal breath sounds. No wheezing or rales. Abdominal: General: Bowel sounds are normal. Palpations: Abdomen is soft. Musculoskeletal: General: Normal range of motion. Cervical back: Neck supple. Skin: General: Skin is warm and dry. Capillary Refill: Capillary refill takes less than 2 seconds. Coloration: Skin is not pale. Neurological: Mental Status: He is alert and oriented to person, place, and time. Cranial Nerves: No cranial nerve deficit. Psychiatric: Mood and Affect: Mood normal. Mood is not anxious or depressed. Behavior: Behavior normal. Thought Content: Thought content normal. Judgment: Judgment normal. Review of Systems Constitutional: Negative for activity change, appetite change, fatigue and unexpected weight change. HENT: Negative for ear pain and trouble swallowing. Eyes: Negative for pain and visual disturbance. Respiratory: Negative for chest tightness and shortness of breath. Cardiovascular: Negative for chest pain, palpitations and leg swelling. Gastrointestinal: Negative for abdominal pain and blood in stool. Endocrine: Negative for cold intolerance and heat intolerance. Genitourinary: Negative for dysuria, hematuria and scrotal swelling. Musculoskeletal: Positive for back pain and gait problem. Negative for arthralgias and myalgias. Skin: Negative for pallor and rash. Allergic/Immunologic: Negative for immunocompromised state. Neurological: Negative for dizziness, syncope and light-headedness. Hematological: Negative for adenopathy. Does not bruise/bleed easily. Psychiatric/Behavioral: Negative for sleep disturbance. The patient is not nervous/anxious. PAST MEDICAL HISTORY Diagnosis Date Dysmetabolic syndrome X resolved with wt loss History of Monica-en-Y gastric bypass 300 # wt loss Lumbago Morbid obesity (HCC) 08-05-10 stated BMI 51.83 Ht: 78 Wt: 448 lbs Other and unspecified hyperlipidemia resolved with wt loss Psychiatric disorder anxiety, depression PUD (peptic ulcer disease) Unspecified essential hypertension resolved with wt loss PAST SURGICAL HISTORY Procedure Laterality Date BACK SURGERY HX 2013 GASTRIC BYPASS HX 04/13/2011 Laparoscopic Monica-en-Y gastric bypass ORTHOPEDICS SURGERY HX 11/26/2013 left shoulder scope PAST SURGICAL HISTORY OF 05/16/2012 left hand boxer fracture repair Social History Tobacco Use Smoking status: Every Day Packs/day: 1.00 Years: 21.00 Pack years: 21.00 Types: Cigarettes Last attempt to quit: 05/16/2009 Years since quittin.0 Smokeless tobacco: Never Substance Use Topics Alcohol use: No Drug use: No FAMILY HISTORY Problem Relation Age of Onset Diabetes Mother ALLERGIES Allergen Reactions Ceclor [Cefaclor] Hives, Itching, Anaphylaxis Early 20s Patient tolerated piperacillin 07/2017 Sulfa (Sulfonamide * Rash Bactrim [Sulfametho* Other: See Comments Skin sloughing Nsaids (Non-Steroid* Other: See Comments Due to hx of gastric bipass CURRENT MEDICATIONS: pantoprazole DR (PROTONIX) 40 mg tablet Take 40 mg by mouth once daily. sertraline (ZOLOFT) 100 mg tablet Take 100 mg by mouth once daily. nitroglycerin sublingual (NITROQUICK) 0.4 mg SL tablet Dissolve 0.4 mg under the tongue every 5 minutes as needed for chest pain. aspirin, enteric coated (ASPIRIN, ENTERIC COATED) 81 mg EC tablet Take 81 mg by mouth once daily. ticagrelor (BRILINTA) 90 mg tablet Take by mouth. atorvastatin (LIPITOR) 80 mg tablet Take 80 mg by mouth once daily. sucralfate (CARAFATE) 1 gram tablet Take 1 g by mouth four times daily. dilTIAZem CR (TIAZAC, TAZTIA XT) 120 mg 24 hr capsule Take 120 mg by mouth once daily. pregabalin (LYRICA) 50 mg capsule Take 50 mg by mouth three times daily. ergocalciferol, vitamin D2, (VITAMIN D2 ORAL) Take by mouth. propranolol ER (INDERAL LA) 120 mg 24 hr capsule Take 120 mg by mouth once daily. baclofen (LIORESAL) 5 mg tablet Take by mouth. ALPRAZolam (XANAX) 1 mg tablet 0.5 mg at bedtime as needed. MULTIVIT &MINERALS/FERROUS FUM (MULTI VITAMIN ORAL) Take by mouth. predniSONE (DELTASONE) 20 mg tablet Take 1 tablet by mouth twice daily. guaiFENesin-dextromethorphan (ROBITUSSIN DM) 100-10 mg/5 mL syrup Take 5 mL by mouth three times daily as needed. pantoprazole DR (PROTONIX) 40 mg tablet Take 1 tablet by mouth twice daily. scopolamine (TRANSDERM-SCOP) 1 mg over 3 days Apply 1 Patch as directed every 72 hours. nicotine (NICODERM) 21 mg/24 hr Apply 1 Patch as directed once daily. traZODone (DESYREL) 50 mg tablet Take 50 mg by mouth daily at bedtime. cyclobenzaprine (FLEXERIL) 10 mg tablet Take 1 tablet by mouth every 8 hours as needed for Muscle Spasm. diazepam (VALIUM) 5 mg tablet Take 1 tablet by mouth every 8 hours as needed (muscle spasms). CALCIUM CITRATE, BULK, MISC Ascorbic Acid 1,000 mg tablet Take 1,000 mg by mouth once daily. ECG: SB Jazmine Estrella DO, FACC, FACOI Clinical and Preventive Cardiology Department of Medicine and Division of Cardiology, [facility] Production Laborerknife glazer [facility] Production Laborer of Congestive Heart Failure Clinic [facility] Cardiology Office Production Laborer [facility] Staff Certified [place] Administrator, Alexi De La Fuente Department of Cardiovascular Medicine/Heart and Vascular [place], [facility] Clinical Automotive Parts Salesperson Profressor of Medicine, [facility] Medicine - [facility] Please note: This note has been produced using speech recognition software and may contain errors related to that system including charlene, punctuation, spelling, words, gender and phrases that may be inappropriate. documented in this encounterChildren[facility]12-20-2022 Evaluation note* Encounter Date Diagnosis Assessment Notes Treatment Notes Treatment Clinical Notes Apr, Chronic cough (ICD-10 - R05.3) [employer] Other 12-20-2022 Evaluation note* Encounter Date Diagnosis Assessment Notes Treatment Notes Treatment Clinical Notes Apr, Seasonal allergies (ICD-10 - J30.2) E Rx sent. No other change today. Apr, Viral upper respiratory tract infection (ICD-10 - J06.9) Lengthy discussion with patient today that I really feel he benefit from a chest x-ray based on the length of time that he has been struggling with this symptom. I would not proceed with any sort of treatment until we see the results of the chest x-ray. Apr, Acute midline low back pain with left-sided sciatica (ICD-10 - M54.42) Lengthy discussion with patient today that I think he would benefit from either Lyrica or gabapentin. We will contact neurology to discuss or clarify if he is actually taking that medication. [employer] Other 11-29-2022 Evaluation note* Encounter Date Diagnosis Assessment Notes Treatment Notes Treatment Clinical Notes Mar, Anxiety (ICD-10 - F41.9) [employer] Other 11-21-2022 Evaluation note* Encounter Date Diagnosis Assessment Notes Treatment Notes Treatment Clinical Notes Mar, Chronic gastric ulcer without hemorrhage and without perforation (ICD-10 - K25.7) [employer] Other 11-10-2022 Evaluation note* Encounter Date Diagnosis Assessment Notes Treatment Notes Treatment Clinical Notes Mar, Chronic gastric ulcer without hemorrhage and without perforation (ICD-10 - K25.7) [employer] Other 09-14-2022 Evaluation note* Encounter Date Diagnosis Assessment Notes Treatment Notes Treatment Clinical Notes Jan, Scrotal abscess (ICD-10 - N49.2) eRX sent. Lengthy 30+ minute discussion with patient today regarding all of his concerns. He really wants to hold on any further intervention or referral to a surgeon. I think this is not unreasonable. We will simply monitor and he will call with update. Pt to continue to pack himself at home - Call for appt if no continued improvement seen. Jan, Chronic gastric ulcer without hemorrhage and without perforation (ICD-10 - K25.7) E Rx sent. I still think he needs to be seen by someone for this, but he seemingly has exhausted all of the local options. Therefore we will simply continue to monitor at his request. [employer] Other 09-08-2022 Evaluation note* Encounter Date Diagnosis Assessment Notes Treatment Notes Treatment Clinical Notes Jan, Closed fracture of second lumbar vertebra, unspecified fracture morphology, initial encounter (ICD-10 - S32.029A) [employer] Other 08-30-2022 Evaluation note* Encounter Date Diagnosis Assessment Notes Treatment Notes Treatment Clinical Notes Dec, Anxiety (ICD-10 - F41.9) [employer] Other 08-25-2022 Evaluation note* Encounter Date Diagnosis Assessment Notes Treatment Notes Treatment Clinical Notes Dec, Anxiety (ICD-10 - F41.9) [employer] Other 07-26-2022 Evaluation note* Encounter Date Diagnosis Assessment Notes Treatment Notes Treatment Clinical Notes Nov, Anxiety (ICD-10 - F41.9) [employer] Other 06-29-2022 Evaluation note* Encounter Date Diagnosis Assessment Notes Treatment Notes Treatment Clinical Notes Oct, Closed fracture of second lumbar vertebra, unspecified fracture morphology, initial encounter (ICD-10 - S32.029A) [employer] Other 06-27-2022 Evaluation note* Encounter Date Diagnosis Assessment Notes Treatment Notes Treatment Clinical Notes Oct, Anxiety (ICD-10 - F41.9) [employer] Other 06-15-2022 Evaluation note* Encounter Date Diagnosis Assessment Notes Treatment Notes Treatment Clinical Notes Oct, Closed fracture of second lumbar vertebra, unspecified fracture morphology, initial encounter (ICD-10 - S32.029A) E Rx sent. Lengthy 30+ minute discussion with patient and today regarding his concerns. Really there is nothing further that this office can do. He really needs to be seen by neurosurgery, especially in light of his previous surgery. It appears that neurology will have to make this formal referral. He voices agreement and understanding. Oct, PTSD (post-traumatic stress disorder) (ICD-10 - F43.10) Lengthy discussion with patient and regarding this concern. We could make some suggestions, but really pt to simply see who is covered by insurance - call if needs/desires formal referral. [employer] Other 06-10-2022 Reason for visit Narrative3 month f/u and discuss referral for back pain, Fractured L2, L3 and L4 - found on CT - lawnmower accident, ER in [place] - 10/23 -[employer] Other 04-29-2022 Evaluation note* Encounter Date Diagnosis Assessment Notes Treatment Notes Treatment Clinical Notes Aug, Anxiety (ICD-10 - F41.9) [employer] Other 04-26-2022 Hospital Discharge instructions* Instructions* Tariq Gonzalez MD - 09/08/2021 RETURN FOR NEW OR WORSENING SYMPTOMS. FOLLOW UP WITH YOUR ENTERPRISE ARCHITECT MANAGER IN 2-3 DAYS. * Attachments The following attachments cannot be sent through Care Everywhere. * Chest Pain (Swazi) documented in this [facility] Phone: [phone] 682-915104-13-2022 Evaluation note* Encounter Date Diagnosis Assessment Notes Treatment Notes Treatment Clinical Notes Aug, Acute gastric ulcer with hemorrhage (ICD-10 - K25.0) [employer] Other 03-31-2022 Evaluation note* Encounter Date Diagnosis Assessment Notes Treatment Notes Treatment Clinical Notes Jul, Anxiety (ICD-10 - F41.9) [employer] Other 02-25-2022 Evaluation note* Encounter Date Diagnosis Assessment Notes Treatment Notes Treatment Clinical Notes Jun, Anxiety (ICD-10 - F41.9) Jun, Chronic gastric ulcer without hemorrhage and without perforation (ICD-10 - K25.7) [employer] Other 02-16-2022 Hospital Discharge instructions* Instructions* Karuna Shin MD - 07/01/2021 Healing very satisfactory continue present antibiotic and finish the course follow-up with your urologist in 5 to 7 days time * Attachments The following attachments cannot be sent through Care Everywhere. * Wound Check (Swazi) documented in this [facility] Phone: [phone] 603-695002-08-2022 Evaluation note* Encounter Date Diagnosis Assessment Notes Treatment Notes Treatment Clinical Notes Jun, Scrotal abscess (ICD-10 - N49.2) E Rx sent. Lengthy discussion with patient today that he really needs to see urology at this time. This is certainly not an area that I will be able to address here in this office. He voices agreement and understanding we will put a call out to urology as soon as possible to get him in for review. Jun, Acute gastric ulcer with hemorrhage (ICD-10 - K25.0) E Rx sent. OARRs completed. Patient is a wear that this is something that we will do just at times of dire need. We will have to somehow figure out how to get him into someone that is willing to potentially address this concern. He states he has been told that he just needs to wait until he gets so bad that he has to go through the ER. [employer] Other 02-01-2014 History general Narrative - Reported* Type Description Date Medical History HTN Medical History HyperChol Medical History Stomach Ulcer - 06/2013 and 08/02 17 Medical History SC 11-17-2020 Medical History CAD - 11/2020 Surgical History double hernia infant Surgical History Right 5th digit 1996 Surgical History gastric bypass 03/2011 Surgical History EGD 01/2018 Surgical History L spine surgery 11/2014 Surgical History Cardiac stenting X 3 right coronary artery 11/2020 Hospitalization History sepsis/ruptured peptic u lcer 07/2017 Hospitalization History [facility] - ulcers 07/2018 Hospitalization History [facility] 11/17/2020 - 11/22/2020 [employer] Other 02-01-2014 History general Narrative - Reported* Type Description Date Medical History HTN Medical History HyperChol Medical History Stomach Ulcer - 06/2013 and 08/02 17 Medical History SC 11-17-2020 Medical History CAD - 11/2020 Medical History CVA 11/2020 Surgical History double hernia infant Surgical History Right 5th digit 1996 Surgical History gastric bypass 03/2011 Surgical History EGD 01/2018 Surgical History L spine surgery 11/2014 Surgical History Cardiac stenting X 3 right coronary artery 11/2020 Hospitalization History sepsis/ruptured peptic u lcer 07/2017 Hospitalization History [facility] - ulcers 07/2018 Hospitalization History [facility] 11/17/2020 - 11/22/2020 [employer] Other 02-01-2014 History general Narrative - Reported* Type Description Date Medical History HTN Medical History HyperChol Medical History Stomach Ulcer - 06/2013 and 03/20 18 Medical History SC 11-17-2020 Medical History CAD - 11/2020 Medical History CVA 11/2020 Surgical History double hernia infant Surgical History Right 5th digit 1996 Surgical History gastric bypass 03/2011 Surgical History EGD 01/2018 Surgical History L spine surgery 11/2014 Surgical History Cardiac stenting X 3 right coronary artery 11/2020 Surgical History lumbar back surgery 01/2023 Hospitalization History sepsis/ruptured peptic u lcer 07/2017 Hospitalization History [facility] - ulcers 07/2018 Hospitalization History [facility] 11/17/2020 - 11/22/2020 Hospitalization History lumbar back surgery 01/15 023 [employer] Other 02-01-2014 History general Narrative - Reported* Type Description Date Medical History HTN Medical History HyperChol Medical History Stomach Ulcer - 06/2013 and 08/02 17 Medical History SC 11-17-2020 Medical History CAD - 11/2020 Medical History CVA 11/2020 Surgical History double hernia Surgical History Right 5th digit 1996 Surgical History gastric bypass 03/2011 Surgical History EGD 01/2018 Surgical History L spine surgery 11/2014 Surgical History Cardiac stenting X 3 right coronary artery 11/2020 Surgical History lumbar back [id number] disc 0 01/2023 Hospitalization History sepsis/ruptured peptic u lcer 07/2017 Hospitalization History [facility] - ulcers 07/2018 Hospitalization History [facility] 11/17/2020 - 11/22/2020 Hospitalization History lumbar back surgery 01/15 023 Hospitalization History see above surg. hx. [employer] Other 11-23-2011 History of Past illness Narrative* Problem Noted Date Resolved Date Obesity, morbid 04/07/2011 05/25/2012 documented as of this encounter (statuses as of 05/19/2022) [address]-2011 History of Past illness Narrative* Problem Noted Date Resolved Date Obesity, morbid 04/07/2011 05/25/2012 documented as of this encounter (statuses as of 07/21/2022) [address] History of Past illness Narrative* Problem Noted Date Diagnosed Date Resolved Date Obesity, morbid 04/07/2011 05/25/2012 documented as of this encounter (statuses as of 12/17/2022) [address] History of Past illness Narrative* Problem Noted Date Diagnosed Date Resolved Date Obesity, morbid 04/07/2011 05/25/2012 documented as of this encounter (statuses as of 12/17/2022) [facility] No data available for this section [facility] [place] [facility] Diagnosis Atypical chest pain- Primary Other chest pain Abdominal pain, epigastric documented in this encounter [facility] Phone: evaluation note* Diagnosis Bronchitis- Primary Bronchitis, not specified as acute or chronic Cough Nasal congestion Other diseases of nasal cavity and sinuses Acute frontal sinusitis, recurrence not specified documented in this encounter [employer] Phone: evaluation note* Diagnosis Sprain of left ankle, unspecified ligament, initial encounter- Primary documented in this encounter [employer] Phone: evallsarej note* Diagnosis Hemoptysis- Primary Hemoptysis, unspecified Chest pain, unspecified type Shortness of breath documented in this encounter [employer] Phone: evaleizvod note* Diagnosis Scrotal wall abscess- Primary Other inflammatory disorder of male genital organs documented in this encounter [employer] Phone: evalrvrore note* Diagnosis Encounter for post surgical wound check- Primary documented in this encounter [employer] Phone: evalsmuxxi note* Diagnosis Status post amputation- Primary Other problems of limbs Finger swelling Swelling of limb documented in this encounter [employer] Phone: evalzsfeih note* Diagnosis Chest pain, unspecified type- Primary documented in this encounter [employer] Phone: evaluation note* Diagnosis Contusion of right hand, initial encounter- Primary documented in this encounter [facility] Phone: evaloflvbq note* Diagnosis Closed head injury, initial encounter- Primary Lumbar transverse process fracture, closed, [facility] encounter [facility] documented in this encounter [facility] Phone: evaluation noteNo [employer] Other Evaluation note* Diagnosis Contusion of right knee, initial encounter- Primary Acute pain of right knee documented in this encounter [employer] Phone: evaluation note* Diagnosis Lumbar herniated disc- Primary Displacement of lumbar intervertebral disc without myelopathy Injury of head, initial encounter Cervical sprain, initial encounter Sprain of right shoulder, unspecified shoulder sprain type, initial encounter documented in this encounter [employer] Phone: evalniusel note* Diagnosis Coronary artery disease involving chinik coronary artery of chinik heart without angina pectoris- Primary Primary hypertension Unspecified essential hypertension Mixed hyperlipidemia ST elevation myocardial infarction involving right coronary artery (HCC) Acute myocardial infarction of inferoposterior wall, initial episode of care S/P right coronary artery (RCA) stent placement [facility] Primary hypertension Unspecified essential hypertension Mixed hyperlipidemia Coronary artery disease involving chinik coronary artery of chinik heart without angina pectoris ST elevation myocardial infarction involving right coronary artery (HCC) Acute myocardial infarction of inferoposterior wall, initial episode of care S/P right coronary artery (RCA) stent placement [facility] encounter [facility]* Diagnosis Laceration of forehead, initial encounter- Primary Acute alcoholic intoxication without complication (HCC) Anxiety state Anxiety state, unspecified documented in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 (ZOFRAN) injection 4 mg (COMPLETED) 4 mg, IntraVENous, ONCE, 1 dose, On Tue10/23/21 at 1541 1543 (Given - Provid er: Asuncion Ray RN) sodium chloride flush 0.9 % injection 3 mL(Linked Group 1) 3 mL, IntraVENous, EVERY 8 HOURS, First dose on Tue10/23/21 at 1304, Until Discontinued, Flush line with 3-5 mL 1304 (Due)2104 (Due) PRN Medication Order 10/21/2021 10/22/2021 10/23/2021 iopamidol (ISOVUE-370) 76 % injection 100 mL (COMPLETED) 100 mL, IntraVENous, IMG ONCE PRN, 1 dose, Starting on Tue10/23/21 at 1412, Until Tue10/23/21 at 1426, Other 1426 (Given - Provid er: Ira Dean) morphine sulfate (PF) injection 4 mg 4 mg, IntraVENous, EVERY 15 MIN PRN, 2 doses, Starting on Tue10/23/21 at 1539, Until Discontinued, Pain Severe (7-10), If oral and IV narcotics ordered, use oral first and only use IV if oral is ineffective or cannot take oral. Do Not give oral and IV within 1 hour of each other unless specifically ordered. 1543 (Given - Provid er: Asuncion Ray, YOLI) Linked Groups Order Group 1: Saline lock IV (COMPLETED) Routine, CONTINUOUS, Starting on Tue10/23/21 at 1315, Until Specified And sodium chloride flush 0.9 % injection 3 mLJump to med 3 mL, IntraVENous, EVERY 8 HOURS, First dose on Tue10/23/21 at 1304, Until Discontinued
Flush line with 3-5 mL
Scheduled Medication Order 11/30/2021 12/01/2021 12/02/2021 HYDROcodone-acetaminophen (NORCO) 5-325 MG per tablet 1 tablet (COMPLETED) 1 tablet, Oral, ONCE, 1 dose, On Tue12/02/21 at 0912, Maximum dose of acetaminophen is 4000 mg from all sources in 24 hours. 0942 (Given - Provid er: Milli Fermin RN) Scheduled Medication Order 03/21/2022 03/22/2022 03/23/2022 dexamethasone (PF) (DECADRON) injection 8 mg (COMPLETED) 8 mg, IntraVENous, ONCE, On Tue03/23/22 at 1149, For 1 dose 1200 (Given - Provid er: Evelin Roach RN) morphine sulfate (PF) injection 4 mg (COMPLETED) 4 mg, IntraVENous, ONCE, 1 dose, On Tue03/23/22 at 1149, If oral and IV narcotics ordered, use oral first and only use IV if oral is ineffective or cannot take oral. Do Not give oral and IV within 1 hour of each other unless specifically ordered. 1201 (Given - Provid er: Evelin Roach RN) ondansetron (ZOFRAN-ODT) disintegrating tablet 4 mg (COMPLETED) 4 mg, Oral, ONCE, 1 dose, On Tue03/23/22 at 1126 1201 (Given - Provid er: Evelin Roach RN) Care Teams (unrecognized sec tion and content) Team Status: Active Member Role Status Dates Meng Mathews DO Primary Care Provider Active Team Status: Inactive Member Role Status Dates Meng Mathews DO Primary Care Provider Active Shereen Iyer Jr, MD Emergency Provider Active Huy Dumont MD Admit Provider Active Nnao Gates MD Attending Provider Active Team Status: Inactive Member Role Status Dates Meng FloresLaura Mathews , Primary Care Provider Active Theresa Moon , Attending Provider Active Chain Splitter Relationship Specialty Start Date End Date Reid, Meng Flores PCP - General Family Medicine 02/23/16 Chain Splitter Relationship Specialty Start Date End Date Reid, Meng Flores PCP - General Family Medicine 02/23/16 Chain Splitter Relationship Specialty Start Date End Date Reid, Meng Flores PCP - General Family Medicine 02/23/16 Chain Splitter Relationship Specialty Start Date End Date Reid, Meng Flores PCP - General Family Medicine 02/23/16 Chain Splitter Relationship Specialty Start Date End Date Reid, Meng Flores PCP - General Family Medicine 02/23/16 Chain Splitter Relationship Specialty Start Date End Date Reid, Meng Flores PCP - General Family Medicine 02/23/16 Chain Splitter Relationship Specialty Start Date End Date Reid, Meng Flores PCP - General Family Medicine 02/23/16 Chain Splitter Relationship Specialty Start Date End Date Reid, Meng Issa, DO [address] [facility] [address] [place] [address] PCP - General 03/25/11 Shanthi Martinez PA-C [address] [place] [id number] [place] Referring Team Neurology 10/10/21 Chain Splitter Relationship Specialty Start Date End Date Reid Meng Parsons, DO [address] [place] [id number] PCP - General 03/25/11 Shanthi Martinez, PA-C [address] [place] [id number] NI Referring Team Neurology 10/10/21 Chain Splitter Relationship Specialty Start Date End Date Reid, Meng Flores PCP - General Family Medicine 02/23/16 Chain Splitter Relationship Specialty Start Date End Date Evelni Kirkland OTR/L [address] [place] [address] Occupational Therapist Occupational Therapy 02/19/20 Lizandro De Luna MD [address] [place] [address] Physician Infectious Diseases 02/19/20 Allyson Wyman MD [address] [place] [id number] Physician Orthopaedic Surgery 02/19/20 Chain Splitter Relationship Specialty Start Date End Date Meng Mathews DO [address] [address] PCP - General 03/25/11 Shanthi Martinez PA-C [address] [place] [id number] NI Referring Team Neurology 10/10/21 Chain Splitter Relationship Specialty Start Date End Date Meng Mathews DO [address] [place] [id number] PCP - General 03/25/11 Shanthi Martinez PA-C [address] [id number] NI Referring Team Neurology 10/10/21 Team Status: Active Member Role Status Dates Meng Mathews DO Primary Care Provider Active Shereen Iyer Jr, MD Emergency Provider Active Huy Dumont MD Admit Provider, Attending Ana briceno Active Team Status: Active Member Role Status Dates Meng Mathews DO Primary Care Provider Active Theresa Moon DO Attending Provider Active Team Status: Inactive Member Role Status Dates Meng Mathews DO Primary Care Provider Active Phoenix Chavez MD Attending Provider Active Team Status: Inactive Member Role Status Dates Meng Mathews DO Primary Care Provider Active Shereen Iyer Jr, MD Emergency Provider Active Huy Dumont MD Admit Provider Active Phoenix Chavez MD Attending Provider Active Chain Splitter Relationship Specialty Start Date End Date Isael Evelin, OTR/L [address] [place] [address] Occupational Therapist Occupational Therapy 02/19/20 Lizandro De Luna MD [address] [place] [id number] Physician Infectious Diseases 02/19/20 Allyson Wyman MD [address] [place] [address] Physician Orthopaedic Surgery 02/19/20 Source Comments (unrecognize d section and content) In the event this informatio n is protected by the Federal Confidentiality of Alcohol and Drug Abuse Patient Records regulations: The Federal rules restrict any use of the information to criminally investigate or prosecute any alcohol or drug abuse patient.[facility] the event this information is protected by the Federal Confidentiality of Alcohol and Drug Abuse Patient Records regulations: The Federal rules restrict any use of the information to criminally investigate or prosecute any alcohol or drug abuse patient.[facility] the event this information is protected by the Federal Confidentiality of Alcohol and Drug Abuse Patient Records regulations: The Federal rules restrict any use of the information to criminally investigate or prosecute any alcohol or drug abuse patient.[facility] the event this information is protected by the Federal Confidentiality of Alcohol and Drug Abuse Patient Records regulations: The Federal rules restrict any use of the information to criminally investigate or prosecute any alcohol or drug abuse patient.[facility] Goals (unrecognized section and content) Goals may be documented in a n alternate section FOR RECORDS PERTAINING TO PATIENTS WHO ARE OR HAVE BEEN ENROLLED IN A CHEMICAL DEPENDENCY/SUBSTANCEABUSE PROGRAM, SOME INFORMATION MAY BE OMITTED. This clinical summary was aggregated from multiple sources. Caution should be exercised in using it in the provision of clinical care. This summary normalizes information from multiple sources, and as a consequence, information in this document may materially change the coding, format and clinical context of patient data. In addition, data may be omitted in some cases. CLINICAL DECISIONS SHOULD BE BASED ON THE PRIMARY CLINICAL RECORDS. [facility]. provides no warranty or guarantee of the accuracy or completeness of information in this document.
--- NOTE | 2023-11-13 11:36 | XR_ITS ---
The [place] [id number] Patient Name: ELIJAH WYLIE MRN: [id number] date: 1975 Sex: M Assigned Patient Location: ED.MAIN Current Patient Location: ER Accession/Order Number: [id number] Exam Date: 11/13/2023 11:45 Report Date: 11/13/2023 13:30 At the request of: MILLICENT COREAS Procedure: XR ankle LT min 3V LEFT ANKLE X-RAY 3 VIEWS AND LEFT FOOT X-RAY 3 VIEWS HISTORY: Pain. COMPARISON: None. FINDINGS: There is soft tissue swelling. There is no acute fracture or dislocation. There is an ankle joint effusion. The metatarsals and phalanges are without acute fracture. There is an old fifth proximal phalanx fracture. XR/XR ankle LT min 3V IMPRESSION: Soft tissue swelling; ankle joint effusion, no acute bony abnormality. Electronically authenticated by: GABRIELA PEREZ Date: 11/13/2023 13:30
--- NOTE | 2023-11-13 11:44 | XR_ITS ---
The [address] [address] Patient Name: ELIJAH WYLIE MRN: [id number] date: 1975 Sex: M Assigned Patient Location: ER Current Patient Location: ER Accession/Order Number: [id number] Exam Date: 11/13/2023 11:45 Report Date: 11/13/2023 13:30 At the request of: MILLICENT COREAS Procedure: XR foot LT min 3V LEFT ANKLE X-RAY 3 VIEWS AND LEFT FOOT X-RAY 3 VIEWS HISTORY: Pain. COMPARISON: None. FINDINGS: There is soft tissue swelling. There is no acute fracture or dislocation. There is an ankle joint effusion. The metatarsals and phalanges are without acute fracture. There is an old fifth proximal phalanx fracture. XR/XR foot LT min 3V IMPRESSION: Soft tissue swelling; ankle joint effusion, no acute bony abnormality. Electronically authenticated by: GABRIELA EPREZ Date: 11/13/2023 13:30
--- NOTE | 2023-11-13 12:25 | ED.LOWEXI1 ---
HPI HPI - Extremity Injury (Lower) General Chief Complaint: Extremity Injury, Lower Stated Complaint: FALL, LEFT ANKLE PAIN Time Seen by Provider: 11/13/23 11:44 Source: patient Mode of arrival: Wheelchair Limitations: no limitations History of Present Illness HPI Narrative: 48-year-old male presents for pain in his left foot and ankle. He fell twice in the first time was a week ago and the second time was yesterday. He is complaining of pain in the entire left foot and ankle and has noticed it has been swollen. It hurts to walk on it. The pain is moderate to severe. Related Data Home Medications ?Medication ?Instructions ?Recorded ?Confirmed alprazolam 2 mg tablet mg 04/13/23 atorvastatin 80 mg tablet mg 04/13/23 diltiazem HCl 120 mg tablet mg 04/13/23 multivitamin with folic acid 400 tab PO 04/13/23 mcg tablet (Tab-A-Brennan) pregabalin 50 mg capsule mg 04/13/23 sucralfate 1 gram tablet 04/13/23 tadalafil 5 mg tablet mg 04/13/23 Previous Rx's ?Medication ?Instructions ?Recorded furosemide 40 mg tablet (Lasix) 40 mg PO DAILY #7 tabs 04/13/23 potassium chloride 20 mEq 20 meq PO DAILY #7 tabs 04/13/23 tablet,extended release(part/cryst) acetaminophen 300 mg-codeine 30 mg 1 tab PO Q6H PRN pain 5 days #20 11/13/23 tablet tabs ibuprofen 800 mg tablet 800 mg PO Q8H PRN pain #20 tabs 11/13/23 Allergies Allergy/AdvReac Type Severity Reaction Status Date / Time Sulfa (Sulfonamide Allergy Intermediate Verified 11/13/23 11:32 Antibiotics) NSAIDS (Non-Steroidal AdvReac Mild Verified 11/13/23 11:32 Anti-Inflamma bactrim Allergy Intermediate Uncoded 11/13/23 11:32 cecor Allergy Intermediate Uncoded 11/13/23 11:32 Opioid HPI Opioid Management Most Recent Pain and Opioid Data: Last ED Pain Assessment 11/13/23 12:18 Review of Systems ROS Narrative A ten point review of systems is negative except as noted above. PFSH PFSH Social History Smoking status: Current every day smoker Exam Narrative Exam Narrative: Nurses note and vital signs reviewed and patient is not hypoxic. General: The patient appears well and in no apparent distress. Patient is resting comfortably on cart. Skin: Warm, dry, no pallor noted. There is no rash noted. Head: Normocephalic, atraumatic Eye: Normal conjunctiva, no drainage Ears, Nose, Mouth, and Throat: oral mucosa is moist. Nares patent. Cardiovascular: Regular Rate and Rhythm Respiratory: Patient is in no distress, no accessory muscle use, lungs are clear to auscultation, no wheezing, rales or rhonchi GI: Soft non-tender Musculoskeletal: He has swelling in the left foot and ankle area. There is bruising inferior to the lateral malleolus. Skin intact. Neurological: A&O, normal speech Psychiatric: Cooperative Constitutional Vital Signs, click to edit/add: Last Vital Signs Temp 98.3 F 11/13/23 11:32 Pulse 55 L 11/13/23 11:32 Resp 16 11/13/23 11:32 BP 141/90 11/13/23 11:32 Pulse Ox 98 11/13/23 11:32 O2 Del Method Room Air 11/13/23 11:32 Course Vital Signs Vital signs: Vital Signs Temperature 98.3 F 11/13/23 11:32 Pulse Rate 55 L 11/13/23 11:32 Respiratory Rate 16 11/13/23 11:32 Blood Pressure 141/90 11/13/23 11:32 Pulse Oximetry 98 11/13/23 11:32 Oxygen Delivery Method Room Air 11/13/23 11:32 Temperature 98.3 F 11/13/23 11:32 Pulse Rate 55 L 11/13/23 11:32 Respiratory Rate 16 11/13/23 11:32 Blood Pressure 141/90 11/13/23 11:32 Pulse Oximetry 98 11/13/23 11:32 Oxygen Delivery Method Room Air 11/13/23 11:32 MDM - Extremity Injury (Lower) MDM Narrative Medical decision making narrative: X-rays show soft tissue swelling but no fracture. Bjorn wrap applied, application checked by me and found to be appropriate, he is neurovascular intact. He was offered crutches but does not feel he needs them, he has a cane that he can use. Treatment diagnosis and follow-up were discussed with the patient. Differential Diagnosis Differential diagnosis: Likely ankle sprain and strain and other (Foot fracture, foot sprain, ankle fracture) Imaging Data Foot and ankle x-rays: Radiologist's impression: ITS Impressions Ankle X-Ray 11/13/23 11:36 IMPRESSION: Soft tissue swelling; ankle joint effusion, no acute bony abnormality. Electronically authenticated by: GABRIELA PEREZ Date: 11/13/2023 13:30 Foot X-Ray 11/13/23 11:44 IMPRESSION: Soft tissue swelling; ankle joint effusion, no acute bony abnormality. Electronically authenticated by: GABRIELA PEREZ Date: 11/13/2023 13:30 Discharge Plan Discharge Stand Alone Forms: Portal Instructions Chief Complaint: Extremity Injury, Lower Clinical Impression: Left ankle sprain Patient Disposition: Home, Self-Care Time of Disposition Decision: 13:40 Condition: Good Mode of Transportation: Private Vehicle Prescriptions / Home Meds: New acetaminophen-codeine 300-30 mg tablet 1 tab PO Q6H PRN (Reason: pain) 5 Days Qty: 20 0RF ibuprofen 800 mg tablet 800 mg PO Q8H PRN (Reason: pain) Qty: 20 0RF No Action atorvastatin 80 mg tablet sucralfate 1 gram tablet diltiazem HCl 120 mg tablet alprazolam 2 mg tablet tadalafil 5 mg tablet pregabalin 50 mg capsule multivitamin with folic acid [Tab-A-Brennan] 400 mcg tablet PO furosemide [Lasix] 40 mg tablet 40 mg PO DAILY Qty: 7 0RF potassium chloride 20 mEq tablet,ER particles/crystals 20 meq PO DAILY Qty: 7 0RF Print Language: Romanian Instructions: Ankle Sprain (ED) Referrals: MENG CARDENAS [Primary Care Provider] - 1 week
[2023-11-13] MEDS: ACETAMINOPHEN 300 MG/ 30 MG CODEINE TABLET 1 TAB PO (12:31)
[2023-11-13 13:51] VITALS: BP 132/91; PULSE 56; O2SAT 97
== END 2023-11-13 13:53 | disposition home or self-care (01) ==
PROVIDERS: Emergency Provider Emergency Medicine; PCP Family Medicine
DX: S93.402A Sprain of unspecified ligament of left ankle, initial encounter (principal); W19.XXXA Unspecified fall, initial encounter; F17.200 Nicotine dependence, unspecified, uncomplicated
CPT/HCPCS: 73610; 73630; 99283

== ENCOUNTER 2024-04-24 18:29 | Emergency (ER) | payer OTHER, SELFPAY ==
[2024-04-24] VITALS (24 sets, daily range): BP systolic 118–141; BP diastolic 70–91; PULSE 43–67; TEMP 35.8; O2SAT 93–99; BMI 33.4
--- NOTE | 2024-04-24 18:33 | CT_ITS ---
The [address] [id number] Patient Name: ELIJAH WYLIE MRN: [id number] date: 1975 Sex: M Assigned Patient Location: ED.MAIN Current Patient Location: ED.MAIN Accession/Order Number: [id number] Exam Date: 04/24/2024 19:10 Report Date: 04/24/2024 20:25 At the request of: KALEB ALLEN Procedure: CT head/brain wo con EXAM: CT head/brain wo con HISTORY: AMS COMPARISON: None. TECHNIQUE: Multiple thin computed tomograms of the head were obtained, with sagittal and coronal reconstructions. Radiation reduction technique and algorithms were utilized during the study. FINDINGS: The ventricles are not enlarged, the lateral ventricles are slightly asymmetric but within normal variation, and the third ventricles in the midline. The sylvian fissures and cortical sulci are unremarkable. There is no evidence of an intracranial hemorrhage, mass lesion or apparent acute infarct. No abnormality is seen in the deep white matter. The cerebellum and visualized brainstem are intact. There is significant mucosal thickening seen throughout the ethmoid sinuses, with several of the air cells completely opacified. Mucosal thickening is seen scattered throughout the maxillary and sphenoid sinuses. The middle ears are aerated. The mastoid sinuses are clear. There is no apparent acute skull fracture. CT/CT head/brain wo con IMPRESSION: There is no evidence of an intracranial hemorrhage, mass lesion or apparent acute infarct. There is chronic sinusitis present, with a few of the ethmoid sinuses completely opacified indicating a mild acute component. There is no apparent acute skull fracture. Electronically authenticated by: SONAL ANTONY Date: 04/24/2024 20:25
--- NOTE | 2024-04-24 18:33 | ECG_ITS ---
The [facility] Test Date: 2024-04-24 Pat Name: ELIJAH WYLIE Department: Room: - Gender: Male Client Relationship Consultant: : 1975 Requested By: MAYANK YEAGER Order Number: [id number] Reading MD: MAYANK YEAGER Measurements Intervals [place] Rate: 51 P: 56 OK: 156 QRS: 67 QRSD: 112 T: 66 QT: 502 QTc: 479 Interpretive Statements 1100 Sinus rhythm 2320 Nonspecific intraventricular conduction delay 8304 Long QTc interval 9150 abnormal ECG Compared to ECG 04/13/2023 08:30:56 Intraventricular conduction delay now present Sinus bradycardia no longer present Electronically Signed On 04-26-2024 8:02:58 EST by MAYANK YEAGER
--- NOTE | 2024-04-24 18:33 | XR_ITS ---
The [place] [id number] Patient Name: ELIJAH WYLIE MRN: [id number] date: 1975 Sex: M Assigned Patient Location: ED.MAIN Current Patient Location: ER Accession/Order Number: [id number] Exam Date: 04/24/2024 20:45 Report Date: 04/24/2024 22:13 At the request of: KALEB ALLEN Procedure: XR chest 1V EXAM: XR chest 1V HISTORY: AMS COMPARISON: Chest x-ray, 04/13/2023. TECHNIQUE: AP chest x-ray. FINDINGS: The heart, mediastinum and pulmonary vascularity are within normal limits. The lungs and pleural spaces are clear. The bony thorax appears intact. XR/XR chest 1V IMPRESSION: Nonacute chest. Electronically authenticated by: MOODY ROMERO Date: 04/24/2024 22:13
--- NOTE | 2024-04-24 18:37 | ED_ITS ---
HPI HPI - General Adult General Chief complaint: Altered Mental Status Stated complaint: CVA SYMPTOMS Time Seen by Provider: 04/24/24 18:35 History of Present Illness HPI narrative: Patient presented to the emergency department for evaluation of altered mental status. EMS was called by patient's when she just got home from work. She states that she left at 7:00 this morning, patient was normal. She states when she just got home, he was sitting there covered in vomit, not responding to her. EMS was called, they state he was bradycardic, with heart rate in the upper 40s, low 50s, was covered in vomit. Not responding appropriately. Unable to follow commands. Was moving all extremities. Patient is unable to give history at this time Related Data Home Medications ?Medication ?Instructions ?Recorded ?Confirmed alprazolam 2 mg tablet mg 04/13/23 atorvastatin 80 mg tablet mg 04/13/23 diltiazem HCl 120 mg tablet mg 04/13/23 multivitamin with folic acid 400 tab PO 04/13/23 mcg tablet (Tab-A-Brennan) pregabalin 50 mg capsule mg 04/13/23 sucralfate 1 gram tablet 04/13/23 tadalafil 5 mg tablet mg 04/13/23 Previous Rx's ?Medication ?Instructions ?Recorded furosemide 40 mg tablet (Lasix) 40 mg PO DAILY #7 tabs 04/13/23 potassium chloride 20 mEq 20 meq PO DAILY #7 tabs 04/13/23 tablet,extended release(part/cryst) acetaminophen 300 mg-codeine 30 mg 1 tab PO Q6H PRN pain 5 days #20 11/13/23 tablet tabs ibuprofen 800 mg tablet 800 mg PO Q8H PRN pain #20 tabs 11/13/23 Allergies Allergy/AdvReac Type Severity Reaction Status Date / Time Sulfa (Sulfonamide Allergy Intermediate Verified 11/13/23 11:32 Antibiotics) NSAIDS (Non-Steroidal AdvReac Mild Verified 11/13/23 11:32 Anti-Inflamma bactrim Allergy Intermediate Uncoded 11/13/23 11:32 cecor Allergy Intermediate Uncoded 11/13/23 11:32 Opioid HPI Opioid Management Most Recent Opioid Data: No Data to Display Review of Systems ROS Narrative Negative unless otherwise stated in HPI, limited secondary to patient condition PFSH PFSH Social History Smoking status: Current every day smoker Exam Narrative Exam Narrative: General: NAD, alert, not speaking, not following commands, covered in vomit, no distress Eyes: PERRL, EOMI, 5 mm, reactive, equal HEENT: NCAT, mmm Neck: Supple, negative Kernig and Brudzinski, nonmeningeal Respiratory: respiratory effort normal, speaks in full sentences, no tripod position, no accessory muscle use. Lungs clear to auscultation without rhonchi, wheezes, rales Cardiac: Bradycardic, regular, no edema, regular s1/s2, no m/g/r Abdomen: Soft, ND/NT. No evidence of fluid wave. No pulsatile masses on exam, rebound tenderness, Corcoran sign or pain over Mcburney's point. Neuro: Altered, not following commands, nonverbal at this time, protecting his airway Constitutional Vital Signs, click to edit/add: Last Vital Signs Temp 96.4 F L 04/24/24 18:34 Pulse 53 L 04/24/24 18:34 Resp 20 04/24/24 18:34 BP 118/72 04/24/24 18:34 Pulse Ox 99 04/24/24 18:34 O2 Del Method Room Air 04/24/24 18:34 Course Vital Signs Vital signs: Vital Signs Temperature 96.4 F L 04/24/24 18:34 Pulse Rate 53 L 04/24/24 18:34 Respiratory Rate 20 04/24/24 18:34 Blood Pressure 118/72 04/24/24 18:34 Pulse Oximetry 99 04/24/24 18:34 Oxygen Delivery Method Room Air 04/24/24 18:34 Temperature 96.4 F L 04/24/24 18:34 Pulse Rate 53 L 04/24/24 18:34 Respiratory Rate 20 04/24/24 18:34 Blood Pressure 118/72 04/24/24 18:34 Pulse Oximetry 99 04/24/24 18:34 Oxygen Delivery Method Room Air 04/24/24 18:34 Medical Decision Making MDM Narrative Medical decision making narrative: 1831 patient was seen and evaluated, heart rate was 52 in the emergency d epartment. Labs and imaging were ordered 1843 patient's girlfriend is at bedside. She states that she left for work at approximately 645 this morning. He was still sleeping in bed. Last seen some time last night before bed in the evening. She states she came home from work at 5:00, 515 and he was sleeping on the floor. She states that is not abnormal for him, he is disabled and he will regularly be sleeping during the day. She states at 530 when his alarm went off to take his meds she went to go talk to him, she states he was just staring at her, seemed to be confused, was not responding to her appropriately, was not answering questions, so she called EMS. 1847 EKG was done showing sinus bradycardia, heart rate of 51, blood pressure within normal limits. 1899 patient was signed out at normal change of shift pending workup Lab Data Labs: Lab Results 04/24/24 Range/Units 18:38 POC Glucose 133 H (74-106) mg/dL Discharge Plan Discharge Chief Complaint: Altered Mental Status Clinical Impression: Bradycardia, Altered mental status Patient Disposition: Still a Patient Time of Disposition Decision: 19:00 Prescriptions / Home Meds: No Action atorvastatin 80 mg tablet sucralfate 1 gram tablet diltiazem HCl 120 mg tablet alprazolam 2 mg tablet tadalafil 5 mg tablet pregabalin 50 mg capsule multivitamin with folic acid [Tab-A-Brennan] 400 mcg tablet PO furosemide [Lasix] 40 mg tablet 40 mg PO DAILY Qty: 7 0RF potassium chloride 20 mEq tablet,ER particles/crystals 20 meq PO DAILY Qty: 7 0RF acetaminophen-codeine 300-30 mg tablet 1 tab PO Q6H PRN (Reason: pain) 5 Days Qty: 20 0RF ibuprofen 800 mg tablet 800 mg PO Q8H PRN (Reason: pain) Qty: 20 0RF Print Language: Bermudian Referrals: MENG CARDENAS [Primary Care Provider] - 1 week
--- OUTSIDE RECORDS SUMMARY | 2024-04-24 18:38 | XMS_ITS | CCD ---
Author Organization [facility] Informat ion Partnership [facility] Care Team Providers Care Manager Biologics Name Role Phone ALAEDEEN, FILI Unavailable Unavailable ALAEDEEN, FILI Unavailable Unavailable Reid, Meng M Primary Care Provider Reid, [facility] Primary Care Provider [phone] Reid, [facility] Primary Care Provider Unavailabl e Reid, [facility] Primary Care Provider Unavailabl e PROVIDER, UNKNOWN Attending Unavailable PROVIDER, UNKNOWN Admitting Unavailable REID, [facility] Primary Care Physician Reid, [facility] Primary Care Provider Reid, [facility] Primary Care Provider Unavailabl e Reid, Meng Unavailable Reid, [facility] Primary Care Provider Unavailabl e Unavailable Unavailable Reid, [facility] Primary Care Provider Unavailabl e REID, [facility] Primary Care Unavailable VICKI DEVI Attending Unavailable REID, [facility] Primary Care Unavailable KARUNA SHIN Attending Unavailable REID, MENG M Primary Care Unavailable ELIJAH WALKER Attending Unavailab le REID, [facility] Primary Care Unavailable REID, [facility] Primary Care Unavailable TARIQ GONZALEZ Attending Unavailable REID, [facility] Primary Care Unavailable KARUNA SHIN Attending Unavailable REID, [facility] Primary Care Unavailable KARUNA SHIN Attending Unavailable REID, [facility] Primary Care Unavailable VICKI DEVI Attending Unavailable REID, [facility] Primary Care Unavailable ELIJAH WALKER Attending Unavailab le REID, [facility] Primary Care Unavailable Reid Meng ADKINS Primary Care Provider Juan STONE, Shanthi Unavailable [phone] Reid, Meng M Primary Care Provider Unavailliane Kirkland OTR/L, Evelin Unavailable [phone] Annamarie MERLOS, Lizandro Francisco Unavailable Garo MERLOS, Allyson Unavailable REID, MENG PARSONS Primary Care Unavailable JAZMINE ESTRELLA Referring Unavailab le REID, MENG PARSONS Primary Care Unavailable DELORESJAZMINE CORDERO Referring Unavailab le DELORESJAZMINE Referring Unavailab le DELORES, JAZMINE DON Attending Unavailab le REID, MENG PARSONS Primary Care Unavailable REID, MENG Mark Primary Care Unavailable SHANTHI GALVAN Referring Unavailable REID, MENG Flores Primary Care Unavailable MISGigi, DR GLASS Primary Care Unavailable VANE Sanchez, DR SMITH Consulting Unavailable MILLICENT COREAS Attending Unavailable MILLICENT COREAS Admitting Unavailable MILLICENT COREAS Consulting Unavailable ODETET LOUIS Consulting Unavailable TARIQ BRICE Consulting Unavailable Reid, DO Meng Flores. Primary Care Provider DO Theresa Moon Attending Provider [phone] MD Shereen Iyer Jr Emergency Provider MD Huy Dumont Admit Provider MD Huy Dumont Attending Provider [phone] Matt Motrip Attending Unavailable Traboulkerryi, Mourhaf Attending Unavailable Trabjuanis, Mourhaf Attending Unavailable Trabjuanis, Morolandof Attending Unavailable Master Siegel Attending Unavailable Phoenix Chavez Unavailable MD Nano Gates Attending Provider Madeline Fisher Unavailable MD Phoenix Chavez Attending Provider MD Phoenix Chavez Attending Provider [phone] Dimas Ferrer Unavailable Phoenix Chavez Attending Unavailable Meng Mathews. [...] Iqbal Consulting Unavailable Phoenix Chavez Consulting Unavailable THERESA MOON Attending Unavailable VERONICA HILL Attending Unavailable Unavailable Primary Care Provider Unavailliane e Allergies Allergy Classification Reported Allergen(s) Allergy Type Date of Onset Reaction(s) Facility Cephalosporins (antibiotic) (5 sources) Cefaclor Drug Allergy Anaphylaxis, Hives [facility] NSAIDs (5 sources) NSAIDs Drug Allergy Other (See Comments) [facility] Sulfamethoxazole / Trimethoprim (5 sources) Sulfamethoxazole / Trimethoprim Drug Allergy [facility] Sulfonamides (antibiotic) (5 sources) Sulfonamides (Antibiotic) Drug Allergy [facility] (20 sources) cefaclor; Translations: [CEFACLOR] Drug Allergy Anaphylaxis, Hives, Itching, Anaphylactic Shock [facility] Repository (7 sources) NSAIDs; Translations: [NSAIDS (NON-STEROIDAL ANTI-INFLAMMATORY DRUG)] Propensity to adverse reactions to drug (disorder) Other: See Comments [facility] Repository (20 sources) sulfamethoxazole / trimethoprim; Translations: [SULFAMETHOXAZOLE-T RIMETHOPRIM] Drug Allergy Rash, Other: See Comments [facility] Repository (12 sources) Sulfonamides (Antibiotic); Translations: [SULFA (SULFONAMIDE ANTIBIOTICS)] Propensity to adverse reactions to drug (disorder) 013 Rash [facility] Repository (20 sources) NSAIDs; Translations: [NSAIDS] Propensity to adverse reactions to drug Other (See Comments) [place] (20 sources) Sulfonamides (Antibiotic); Translations: [SULFA ANTIBIOTICS] Propensity to adverse reactions to drug Rash [place] (4 sources) SULFAMETHOXAZOLE W-TRIMETHOPRIM; Translations: [SULFAMETHOXAZOLE W-TRIMETHOPRIM] Propensity to adverse reactions to drug (disorder) [facility] ([facility] sources) Sulfamethoxazole / Trimethoprim; Translations: [sulfamethoxazole-t rimethoprim] Drug Allergy rash [facility] Other (3 sources) Sulfonamides (Antibiotic); Translations: [sulfa drugs] Drug allergy Unknown (qualifier value) [facility] (20 sources) Acetaminophen / HYDROcodone Drug Allergy headaches [facility] Other (20 sources) Cefaclor; Translations: [Ceclor] Drug Allergy rash [facility] Repository (2 sources) NSAIDs; Translations: [NSAIDs] Allergy to drug (finding) [place] [address] DO Work Phone: (20 sources) Non-steroidal anti-inflammatory agent Drug allergy Other (See Comments) [facility] Other (5 sources) Sulfonamides (Antibiotic) Propensity to adverse reactions to drug 016 Rash [facility] Work Phone: (3 sources) Non-steroidal anti-inflammatory agent Propensity to adverse reactions to drug Other [facility] (1 source) Sulfamethoxazole / Trimethoprim Drug Allergy [facility] Repository (1 source) Sulfonamides (Antibiotic) Drug allergy (disorder) [facility] Repository (6 sources) Sulfamethoxazole; Translations: [sulfamethoxazole] Drug Allergy 023 skin reaction [facility] (6 sources) Trimethoprim; Translations: [trimethoprim] Drug Allergy skin reaction [facility] (6 sources) NSAIDS (Non-Steroidal Anti-Inflamma; Translations: [NSAIDS (Non-Steroidal Anti-Inflamma] Propensity to adverse reactions Unknown Reaction [facility] (1 source) Acetaminophen Drug Allergy [facility] Repository (1 source) HYDROcodone Drug Allergy [facility] Repository Medications Current Medications Medication Drug Class(es) Dates [...] pain 24 tablet 0 04/17/2019 04/20/2019 Active [id number] 200 actuat albuterol 0.09 mg/actuat metered dose [...] Start: 04-04-2023 take 1 tablet by cristobal th twice daily as needed for anxiety Start: 03-08-2023 take 1 tablet by cristobal th twice daily as needed for anxiety Xanax 2 MG 1 tablet PRN Orally twice a day PRN anxiety for 30 days Feb, Active Start: 02-04-2023 take 1 tablet by cristobal th twice [...] anxiety for 30 days September, Active Start: 11-18-2020 take 1 tablet by cristobal twice daily as needed for anxiety Alprazolam Active 2 MG PO Twice daily November 18, 2020 12:00am TAKE 1 TABLET BY MOUTH TWICE DAILY NEEDED FOR ANXIETY Start: 04-16-2019 take 1 tablet by cristobal three times daily as needed for anxiety alprazolam 1 mg Tab 1 mg = 1 tab(s), Oral, TID, PRN for anxiety Start Date: 06/24/21 Status: Ordered Start: 04-16-2019 take 1 tablet by cristobal twice daily as needed for anxiety Xanax 1 MG 1 tablet PRN Orally twice a day PRN anxiety for 30 day(s) September, Active Start: 09-01-2016 take 0.5 mg by mouth every twenty-four hours as needed ALPRAZolam (XANAX) 1 mg tablet 0.5 mg at bedtime as needed. 0 09/01/2016 Active take 1 tablet by cristobal once daily as needed for sleep ALPRAZolam (XANAX) 0.5 MG tablet Take 0.5 mg by mouth nightly as needed for Sleep.. 0 Active Comment on above: 0.5 mg at bedtime as needed. amoxicillin 875 mg / clavulanate 125 mg oral tablet (18 sources) Penicillin-class Antibacterial Start: 07-28-19 23 take 1 tablet by mouth every twelve hours antibiotic pt unsure of name for 10 days (1 source) Start: 06-02-19 16 antibiotic pt unsure of name for 10 days antibiotic pt unsure of name for 10 days, Oral, BID, infection Start Date: 06/02/15 Status: Ordered apixaban (1 source) Factor Xa Inhibitor End: 02-25-20 Apixaban (ELIQUIS PO) Take by mouth 0 02/24/2021 Discontinued (LIST CLEANUP) aspirin 81 mg oral capsule (20 sources) Platelet Aggregation Inhibitor, Nonsteroidal Anti-inflammatory Drug Start: 06-24-19 take 1 capsule by mouth every four hours aspirin 81 mg oral capsule 81 mg = 1 cap(s), Oral, q4hr Start Date: 06/24/21 Status: Ordered Start: 11-21-2020 take 1 tablet by cristobal th once daily Aspirin (Children's Aspirin) 81 [...] sources) Macrolide Antimicrobial Start: 02-19-20 End: 02-29-20 20 take 2 tablets by mouth once daily [...] 7 day(s) Jun, Active Start: 06-18-2021 End: 06-18-2021 clindamycin (CLEOCIN) capsul e 300 mg Start: 08-07-2020 End: 08-07-2020 clindamycin (CLEOCIN) capsul e 150 mg Start: 11-01-2019 End: 11-11-2019 take 1 capsule by mouth four times daily clindamycin (CLEOCIN) 300 MG capsule Take 1 capsule by mouth 4 times daily for 10 days 40 capsule 0 11/01/2019 11/11/2019 Active Start: 05-30-2019 End: 06-28-2021 take 1 capsule by mouth three times daily clindamycin (CLEOCIN) 300 MG capsule Take 1 capsule by mouth 3 times daily for 10 days 30 capsule 0 06/18/2021 06/28/2021 Active Start: 04-14-2019 End: 04-14-2019 clindamycin (CLEOCIN) [...] Start: 06-24-2021 take 1 tablet by cristobal three times daily as needed for muscle [...] 2023 9:01am take 1 tablet by cristobal th once daily Comment on above: Take 120 [...] every week vitamin D (ERGOCALCIFEROL) 1.25 MG (00678 UT) CAPS capsule Take 50,000 Units by mouth once a week 0 Active furosemide 40 mg oral tablet (5 sources) Loop Diuretic take 1 tablet by mouth every twenty-four hours Lasix 40 MG 1 tablet Orally Once a day for 30 days Active gabapentin 300 mg oral capsule (2 sources) Anti-epileptic Agent Start: take 1 capsule by [...] for chest pain. nitroglycerin 0.4 mg SubL [place] (1 source) Start: nitroglycerin 0.4 mg SubL [place] mg spray(s), SubLingual, q5min, Refills(s) 0 Start Date: 06/24/21 Status: Ordered ondansetron 8 mg oral tablet (20 sources) Serotonin-3 Receptor Antagonist Start: 3 take 1 tablet by mouth every eight hours as needed Start: 10-28-2021 take 1 tablet by cristobal every eight hours Ondansetron HCl 4 MG [...] Lumbar transverse process fracture, closed, initial encounter ([facility]) Take 1 tablet by mouth every 4 hours as needed for Pain for up to 3 days. Intended supply: 3 days. Take lowest dose possible to manage pain 20 tablet 0 10/23/2021 10/26/2021 Active Start: 08-26-2021 take 1 tablet by cristobal th every eight hours oxyCODONE HCl 5 MG 1 tablet as needed Orally every 8 hrs for 7 days duplicte Aug, Not-Taking Start: 06-29-2021 take 1 tablet by cristobal th every eight hours oxyCODONE HCl 5 MG 1 tablet as needed Orally every 8 hrs for 7 days Jun, Active Start: 06-23-2021 take 1 tablet by cristobal th every eight hours oxyCODONE HCl 5 MG [...] 0 Active take 1 tablet by cristobal th once daily pantoprazole (PROTONIX) 20 MG tablet [...] Start: 08-29-2018 take 1 tablet by cristobal th twice daily predniSONE (DELTASONE) 20 mg tablet Take 1 tablet by mouth twice daily. 10 tablet 0 08/29/2018 Active Comment on above: Take 1 tablet by cristobal th twice daily. pregabalin 50 mg oral capsule [...] mg disintegrating oral tablet (14 sources) Start: 3 take 1 tablet by mouth once daily [...] Phosphodiesterase 5 Inhibitor Start: 01-08-20 End: 12-19-19 take 1 tablet by mouth every twenty-four [...] 20 mg/ml oral solution (4 sources) Uncompetitive T-xsvppo-C-aspartat e Receptor Antagonist, Sigma-1 Agonist Start: 08-29-2018 [...] KENALOG - 10 mg Jun, 80 mg Problems Active Problems Problem Classification Problem Date [...] Coronary atherosclerosis; Translations: [Atherosclerotic heart disease of [place] coronary artery without angina pectoris] Onset: 2 [...] vitamins] 12-18-2020 Episodic Open wounds of extremities (4 sources) Traumatic amputation of finger; Translations: [Partial [...] [Unspecified injury of head, initial encounter] Onset: Episodic Other lower respiratory disease (1 source) [...] Complications of surgical procedures or medical care (3 sources) Wound dehiscence; Translations: [Disruption of wound, [...] 3 Episodic Skin and subcutaneous tissue infections (4 sources) Cutaneous abscess, unspecified; Translations: [Abscess of finger of right hand] Onset: 0 06-19-2019 Episodic Spondylosis; intervertebral disc disorders; other back problems (20 sources) Acute back pain with sciatica; Translations: [Lumbago with sciatica, left side] Onset: 3 Episodic Superficial injury; contusion (4 sources) Contusion of right hand; Translations: [Contusion of right hand, initial encounter] Onset: 2 Episodic Unclassified (1 source) Chronic cough R05.3 Results Test Name Value Interpretation Reference Range Facility [facility] 02-17-2023 Residential Documents [id number] Normal [facility] XR lumbar spine 2-3V*on XR lumbar spine 2-3V* [place] [address] XRay Report Signed Patient: Elijah Wylie Jr MR#: [id number] : 1975 Acct:[id number] Age/Sex: 47 / M ADM Date: 02/15/23 Loc: XD Room: Type: [facility] Attending Dr: Phoenix Chavez MD Copies to: [...] Shasha Hyatt M.D.02/15/2023 1:26 PM Dictation Location[facility] Transcribed By: [facility] 02/15/23 132 Dictated By: Shasha Hyatt MD 02/15/231322 Signed By: 02/15/23 132 Normal [facility] Amphetamine Screen Ql (U)Ord ered By: Mendoza Steward on 01-26-2023 Amphetamines Ql (U) Negative Negative [facility] Barbiturates [Presence] in U rine by Screen methodOrdered By: Mendoza Steward on 01-26-2023 Barbiturates Screen Ql (U) Negative Negative [facility] Basic Metabolic Panelon 01-14 Anion gap [Moles/Vol] 10.5 mmol/L Normal 6.0-15.0 [facility] Comment on above: Performed By: #### B KRISH, CBC #### [facility] [address] [place] [address] [place] Calcium [Mass/Vol] 8.8 mg/dL Normal 8.6-10.3 [facility] Comment on above: Performed By: #### B MP, CBC #### [facility] [address] [place] [id number] [place] Chloride [Moles/Vol] 110 mmol/L High 98-107 [facility] Comment on above: Performed By: #### B MP, CBC #### [address] CO2 [Moles/Vol] 26.7 mmol/L Normal 21.0-31.0 [facility] Comment on above: Performed By: #### B MP, CBC #### [address] Creatinine [Mass/Vol] 0.69 mg/dL Low 0.70-1.30 [facility] Comment on above: Performed By: #### B MP, CBC #### [address] Creatinine Clr Calc Pharmacy 185.92 Normal [facility] Comment on above: Result Comment: PERF ORMED BY: [place] [id number] PATHOLOGIST GEOSPATIAL ANALYST JASPER MELCHOR M.D. Performed By: #### B MP, CBC #### [address] GFR/1.73 sq M.predicted MDRD (S/P/Bld) [Vol rate/Area] mL/min/{1.73_m2} Normal [facility] Comment on above: Performed By: #### B MP, CBC #### [address] Glucose [Mass/Vol] 136 mg/dL High 70-100 [facility] Comment on above: Result Comment: [facility] [place] Glucose Reference Range is dependent on time and content of last meal. Glucose of more than 200 mg/dL in a nonstressed, ambulatory subject supports the diagnosis of Diabetes Mellitus. ADA recommended reference range Performed By: #### B MP, CBC #### [address] Potassium [Moles/Vol] 4.2 mmol/L Normal 3.5-5.1 [facility] Comment on above: Performed By: #### B MP, CBC #### [place] [address] [place] Sodium [Moles/Vol] 143 mmol/L Significant change down 136-145 [facility] Comment on above: Performed By: #### B MP, CBC #### [facility] [address] Urea nitrogen [Mass/Vol] 9 mg/dL Normal 7-25 [facility] Comment on above: Performed By: #### B MP, CBC #### [facility] [address] Basophils Auto (Bld) [#/Vol] Ordered By: Nano Gates on 01-26-2023 Basophils (Bld) [#/Vol] 0.1 10*3/uL 0.0-0.2 [facility] Basophils/100 WBC Auto (Bld) Ordered By: Nano Gates on 01-26-2023 Basophils/100 WBC (Bld) 0.6 % . [facility] Benzodiazepines Screen Ql (U )Ordered By: Mendoza Steward on 01-26-2023 Benzodiazepines Ql (U) Positive Negative [facility] Benzoylecgonine [Presence] i n Urine by Screen methodOrdered By: Mendoza Steward on 01-26-2023 Benzoylecgonine Screen Ql (U) Negative Negative [facility] Calcium [Mass/volume] in Ser um or PlasmaOrdered By: Nano Gates on 01-26-2023 Calcium [Mass/Vol] 8.8 mg/dL 8.6-10.3 [facility] Cannabinoids [Presence] in U rine by Screen methodOrdered By: Mendoza Steward on 01-26-2023 Cannabinoids Screen Ql (U) Positive Negative [facility] Comment on above: These are unconfirme d results and should not be used for legal purposes. Drug Cut-Off Concentration: AMPH 1000 ng/mL GEETA 200 ng/mL QUIRINO 200 ng/mL COCM 300 ng/mL OP 300 ng/mL PCP 25 ng/mL THC 20 ng/mL Carbon dioxide, total [Moles /volume] in Serum or PlasmaOrdered By: Nano Gates on 01-26-2023 CO2 [Moles/Vol] 26.7 mmol/L 21.0-31.0 [facility] Chloride [Moles/volume] in S krystal or PlasmaOrdered By: Nano Gates on 01-26-2023 Chloride [Moles/Vol] 110 mmol/L 98-107 [facility] Complete Blood Count Auto Di ffon 01-26-2023 Basophils (Bld) [#/Vol] 0.1 10*3/uL Normal 0.0-0.2 [facility] Comment on above: Result Comment: PERF ORMED BY: [facility] [address] [place] [address] PATHOLOGIST GEOSPATIAL ANALYST JASPER MELCHOR M.D. Performed By: #### B MP, CBC ####[address] Basophils/100 WBC (Bld) 0.6 % Normal . [facility] Comment on above: Performed By: #### B MP, CBC ####[address] Eosinophils (Bld) [#/Vol] 0.0 10*3/uL Normal 0.0-0.45 [facility] Comment on above: Performed By: #### B MP, CBC ####[address] Eosinophils/100 WBC (Bld) 0.0 % Normal . [facility] Comment on above: Performed By: #### B MP, CBC ####[address] Erythrocyte distribution width (RBC) [Ratio] 16.6 % High 12.0-14.8 [facility] Comment on above: Performed By: #### B MP, CBC ####[place] [id number] [facility] Hematocrit (Bld) [Volume fraction] 38.8 % Normal 38.8-50.0 [facility] Comment on above: Performed By: #### B MP, CBC ####[place] [id number] [facility] Hemoglobin (Bld) [Mass/Vol] 12.6 g/dL Low 13.0-17.0 [facility] Comment on above: Performed By: #### B MP, CBC ####[address] Lymphocytes (Bld) [#/Vol] 0.8 10*3/uL Low 1.00-4.8 [facility] Comment on above: Performed By: #### B MP, CBC ####[address] Lymphocytes/100 WBC (Bld) 5.1 % Normal . [facility] Comment on above: Performed By: #### B MP, CBC ####[address] MCH (RBC) [Entitic mass] 28.2 pg Normal 27.5-35.2 [facility] Comment on above: Performed By: #### B MP, CBC ####[address] MCV (RBC) [Entitic vol] 87.1 fL Normal 83.5-101 [facility] Comment on above: Performed By: #### B MP, CBC ####[address] Mean Corpuscular HGB Conc 32.4 g/dL Low 32.5-35.6 [facility] Comment on above: Performed By: #### B MP, CBC ####[address] Monocytes (Bld) [#/Vol] 0.3 10*3/uL Normal 0.0-0.8 [facility] Comment on above: Performed By: #### B MP, CBC ####[address] Monocytes/100 WBC (Bld) 2.0 % Normal . [facility] Comment on above: Performed By: #### B MP, CBC ####[address] Neutrophils (Bld) [#/Vol] 15.1 10*3/uL High 1.8-7.7 [facility] Comment on above: Performed By: #### B MP, CBC ####[place] [id number] [facility] Neutrophils/100 WBC (Bld) 92.3 % Normal . [facility] Comment on above: Performed By: #### B MP, CBC ####[place] [id number] [place] [id number] [facility] NRBC% 0.0 /100{WBC} Normal 0-0.5 [facility] Comment on above: Performed By: #### B MP, CBC ####[place] [id number] [facility] Platelet mean volume (Bld) [Entitic vol] 11.9 fL High 6.6-10.1 [facility] Comment on above: Performed By: #### B MP, CBC ####[address] Platelets (Bld) [#/Vol] 114 10*3/uL Low 150-450 [facility] Comment on above: Performed By: #### B MP, CBC ####[place] [id number] [facility] RBC (Bld) [#/Vol] 4.46 10*6/uL Normal 3.90-5.60 [facility] Comment on above: Performed By: #### B MP, CBC ####[place] [id number] [facility] WBC (Bld) [#/Vol] 16.3 10*3/uL High 4.1-10.5 [facility] Comment on above: Performed By: #### B MP, CBC ####[place] [id number] [facility] Creatinine [Mass/volume] in Serum or PlasmaOrdered By: Nano Gates on 01-26-2023 Creatinine [Mass/Vol] 0.69 mg/dL 0.70-1.30 [facility] Drug Screen,Urineon 01-27-20 Amphetamine Screen,Urine Negative Normal Negative [facility] Comment on above: Performed By: #### U RDS #### [place] [address] [place] Barbiturate Screen,Urine Negative Normal Negative [facility] Comment on above: Performed By: #### U RDS #### [place] [address] [place] Benzodiazepines Screen,Urine Positive High Negative [facility] Comment on above: Performed By: #### U RDS #### [place] [address] [place] Cannabinoid Screen,Urine Positive High Negative [facility] Comment on above: Result Comment: Thes e are unconfirmed results and should not be used for legal purposes. Drug Cut-Off Concentration: AMPH 1000 ng/mL GEETA 200 ng/mL QUIRINO 200 ng/mL COCM 300 ng/mL OP 300 ng/mL PCP 25 ng/mL THC 20 ng/mL PERFORMED BY: [place] [id number] PATHOLOGIST GEOSPATIAL ANALYST JASPER MELCHOR M.D. Performed By: #### U RDS #### [place] [address] [place] Cocaine Screen,Urine Negative Normal Negative [facility] Comment on above: Performed By: #### U RDS #### [place] [address] [place] Opiate Screen,Urine Positive High Negative [facility] Comment on above: Performed By: #### U RDS #### [place] [address] [place] Phencyclidine Screen,Urine Negative Normal Negative [facility] Comment on above: Performed By: #### U RDS #### [place] [address] [place] Eosinophils Auto (Bld) [#/Vo l]Ordered By: aNno Gates on 01-26-2023 Eosinophils (Bld) [#/Vol] 0.0 10*3/uL 0.0-0.45 [facility] Eosinophils/100 WBC Auto (Bl d)Ordered By: Nano Gates on 01-26-2023 Eosinophils/100 WBC (Bld) 0.0 % . [facility] Erythrocyte distribution wid th Auto (RBC) [Ratio]Ordered By: Nano Gates on 01-26-2023 Erythrocyte distribution width (RBC) [Ratio] 16.6 % 12.0-14.8 [facility] Glucose [Mass/volume] in Ser um or PlasmaOrdered By: Nano Gates on 01-26-2023 Glucose [Mass/Vol] 136 mg/dL 70-100 [facility] Comment on above: ADA recommended refe rence rangeRandom Glucose Reference Range is dependent on time and content of last meal. Glucose of more than 200 mg/dL in a nonstressed, ambulatory subject supports the diagnosis of Diabetes Mellitus. Hematocrit Auto (Bld) [Volum e fraction]Ordered By: Nano Gates on 01-26-2023 Hematocrit (Bld) [Volume fraction] 38.8 % 38.8-50.0 [facility] Hemoglobin [Mass/volume] in BloodOrdered By: Nano Gates on 01-26-2023 Hemoglobin (Bld) [Mass/Vol] 12.6 g/dL 13.0-17.0 [facility] Valentino 01-26-2023 L --------- ----- Specimen: [id number] Received: 01/26/23 Status: LIZETH Sarabia Num: [id number] Spec Type: Surgical Subm Dr: Phoenix Chavez MD Tissues: A Disc - Intervertebral/Lumbar/Cervica l (LUMBAR DISC) Procedures: BENNETT, Gross/Micro L3 ----- Age/ Patient Sex Location Account Attending Physician ----- Elijah Wylie Jr 47/M 4N [id number] Nano Gates MD ----- SPEC NUM: [id number] RECD: 01/26/23 STATUS: LIZETH SARABIA NUM: [id number] DELISA: 01/26/23 [facility] DR: Phoenix Chavez MD ENTERED: 01/26/23 [facility] DR: LUPE TYPE: Surgical DEPT: S ORDERED: HE, Gross/Micro L3 ORDERED: BENNETT, Gross/Micro L3 Pathological Diagnosis Disk, L4-5, excision: - Degenerated cartilaginous tissue Clinical Information Radiculopathy Gross Description Received in formalin labeled with the patient's name, date of and disc is a 4.0 x 2.0 x 0.8 cm aggregate of rosa-lopez fibrocartilaginous tissue. [employer] sections are submitted in one cassette labeled A1. Microscopic Description One H E slide reviewed. The microscopic examination confirms the diagnosis. CPT Codes 89625 ----- ----- Specimen: [id number] Received: 01/26/23 Status: LIZETH Sarabia Num: [id number] Spec Type: Surgical Subm Dr: Phoenix Chavez MD Tissues: A Disc - Intervertebral/Lumbar/Cervica l (LUMBAR DISC) Procedures: Morgan GUAJARDO/Wade L3 ----- Patient: Elijah Wylie Jr [id number] (Continued) ----- Signed (signature on file) Pal Barakat MD 01/30/23 1517 Normal [facility] Leukocytes [#/volume] correc max for nucleated erythrocytes in Blood by Automated counOrdered By: Nano Gates on 01-26-2023 WBC corrected for nucl RBC Auto (Bld) [#/Vol] 16.3 10*3/uL 4.1-10.5 [facility] Lymphocytes Auto (Bld) [#/Vo l]Ordered By: Nano aGtes on 01-26-2023 Lymphocytes (Bld) [#/Vol] 0.8 10*3/uL 1.00-4.8 [facility] Lymphocytes/100 WBC Auto (Bl d)Ordered By: Nano Gates on 01-26-2023 Lymphocytes/100 WBC (Bld) 5.1 % . [facility] MCH Auto (RBC) [Entitic mass ]Ordered By: Nano Gates on 01-26-2023 MCH (RBC) [Entitic mass] 28.2 pg 27.5-35.2 [facility] MCHC Auto (RBC) [Mass/Vol]Or dered By: Nano Gates on 01-26-2023 MCHC (RBC) [Mass/Vol] 32.4 g/dL 32.5-35.6 [facility] MCV Auto (RBC) [Entitic vol] Ordered By: Nano Gates on 01-26-2023 MCV (RBC) [Entitic vol] 87.1 fL 83.5-101 [facility] Monocytes Auto (Bld) [#/Vol] Ordered By: Nano Gates on 01-26-2023 Monocytes (Bld) [#/Vol] 0.3 10*3/uL 0.0-0.8 [facility] Monocytes/100 WBC Auto (Bld) Ordered By: Nano Gates on 01-26-2023 Monocytes/100 WBC (Bld) 2.0 % . [facility] Neutrophils Auto (Bld) [#/Vo l]Ordered By: Nano Gates on 01-26-2023 Neutrophils (Bld) [#/Vol] 15.1 10*3/uL 1.8-7.7 [facility] Neutrophils/100 WBC Auto (Bl d)Ordered By: Nano Gates on 01-26-2023 Neutrophils/100 WBC (Bld) 92.3 % . [facility] No Panel InformationOrdered By: Nano Gates on 01-26-2023 Estimated GFR (CKD-EPI) > 60.0 mL/Min [facility] Creatinine Clearance (Chem 185.92 [facility] Nucleated erythrocytes [Pres ence] in Blood by Automated countOrdered By: Nano Gates on 01-26-2023 Nucleated RBC Auto Ql (Bld) 0.0 /100{WBC} 0-0.5 [facility] Opiates [Presence] in Urine by Screen methodOrdered By: Mendoza Steward on 01-26-2023 Opiates Screen Ql (U) Positive Negative [facility] Phencyclidine Screen Ql (U)O rdered By: Mendoza Steward on 01-26-2023 Phencyclidine Ql (U) Negative Negative [facility] Platelet mean volume Auto (B ld) [Entitic vol]Ordered By: Nano Gates on 01-26-2023 Platelet mean volume (Bld) [Entitic vol] 11.9 fL 6.6-10.1 [facility] Platelets Auto (Bld) [#/Vol] Ordered By: Nano Gates on 01-26-2023 Platelets (Bld) [#/Vol] 114 10*3/uL 150-450 [facility] Potassium [Moles/volume] in Serum or PlasmaOrdered By: Nano Gates on 01-26-2023 Potassium [Moles/Vol] 4.2 mmol/L 3.5-5.1 [facility] RBC Auto (Bld) [#/Vol]Ordere d By: Nano Gates on 01-26-2023 RBC (Bld) [#/Vol] 4.46 10*6/uL 3.90-5.60 [facility] Serum or plasma anion gap de terminationOrdered By: Nano Gates on 01-26-2023 Anion gap [Moles/Vol] 10.5 mmol/L 6.0-15.0 [facility] Sodium [Moles/volume] in Ser um or PlasmaOrdered By: Nano Gates on 01-26-2023 Sodium [Moles/Vol] 143 mmol/L 136-145 [facility] Comment on above: Delta: 137 on -2154 Urea nitrogen [Mass/volume] in Serum or PlasmaOrdered By: Nano Gates on 01-26-2023 Urea nitrogen [Mass/Vol] 9 mg/dL 7-25 [facility] WBC Auto (Bld) [#/Vol]Ordere d By: Nano Gates on 01-26-2023 WBC (Bld) [#/Vol] 16.3 10*3/uL 4.1-10.5 [facility] XR lumbar spine 1Von 023 XR lumbar spine 1V [facility] Main [address] [address] XRay Report Signed Patient: Elijah Wylie Jr MR#: [id number] : 1975 Acct:[id number] Age/Sex: 47 / M ADM Date: 01/24/23 Loc: 4N Room: [address] [place] [address] Type: ADM IN Attending Dr: Nano Gates MD Copies to: MD Nano Ch MD Ordering Provider: Phoenix Chavez MD Date of Service: 01/26/23 XR/XR lumbar spine 1V: . Intraoperative study. Reason for exam: Lumbar discectomy L4-L5 Findings: 1 images were obtained intraoperatively. Cumulative Air Kerma in mGy: 0.145 mGy XR/XR lumbar spine 1V Impression: Intraoperative study. Impression dictated by: Omero Winston Jr., D.OLaura01/26/2023 4:14 PM Dictation Location: [place] [address] Transcribed By: [facility] 01/26/231613 Dictated By: Omero Winston Jr, DO 01/26/231613 Signed By: 01/26/231613 Normal [facility] ECG 12 lead ECGon 01-25-2023 ECG 12 lead ECG [facility] Main [place] [id number] Electrocardiograph Report Signed Patient: Elijah Wylie Jr MR#: [id number] : 1975 Acct:[id number] Age/Sex: 47 / M ADM Date: 01/24/23 Loc: 4N Room: [address] [place] [address] Type: ADM INOo Attending Dr: Huy Dumont [...] has decreased Confirmed by SHEREEN IYER MD ([id number]) on 01/25/2023 12:06:51 AM Referred By: Electronically Signed By:SHEREEN IYER MD Transcribed By: MUS Signed By Shereen Iyer Jr, MD 0006 Normal [facility] echo transthoracicon [facility] echo transthoracic [place] [address] Echocardiogram Signed Patient: Elijah Wylie Jr MR#: [id number] : 1975 Acct:[id number] Age/Sex: 47 / M ADM Date: 01/24/23 Loc: Room: [address] [place] [address] Type: ADM IN Attending Dr: Nano Gates MD Ordering Provider: Phoenix Chavez MD Date of Service: 01/25/2305/07/815 [facility] echo transthoracic: Cardiac clearance Copies to: MD Master Ch MD Height: 77 in Weight: 247 lb Performed By: BELA Figueroa BSA: 2.4 m2 BP: 107/65 mmHg HR: 57 Reason For Study: Cardiac clearance History: Cardiac Arrest - RCA dissectio, PA, stent, asthma, HLD, anoxic brain injury, smoker [...] FS: 22.1 % Ao root area: 5.8 ac2ALVj ap4: 9.3 cm RV S Dinh: EDV(Teich): [...] 183.7 cm/sec2 Transcribed By: SCV Performed At: 01/25/23933 Signed By: Master Siegel MD 01/25/23 1149 Normal [facility] Redraw Potassiumon 3 Potassium [Moles/Vol] 3.8 mmol/L Normal 3.5-5.1 [facility] Comment on above: Result Comment: PERF ORMED BY: [place] [id number] PATHOLOGIST GEOSPATIAL ANALYST JASPER MELCHOR M.D. Performed By: #### R LIAT Bautista #### [place] [address] [place] Urinalysison 01-25-2023 Appearance (U) Clear Normal Clear [facility] Comment on above: Order Comment: Name Collection Type:: Clean-Voided Midstream Performed By: #### U A #### [place] [address] [place] Bilirubin,Urine Negative Normal Negative [facility] Comment on above: Order Comment: Name Collection Type:: Clean-Voided Midstream Performed By: #### U A #### [address] Color (U) Yellow Normal Yellow [facility] Comment on above: Order Comment: Name Collection Type:: Clean-Voided Midstream Performed By: #### U A #### [address] Glucose Ql (U) Normal Normal Normal [facility] Comment on above: Order Comment: Name Collection Type:: Clean-Voided Midstream Performed By: #### U A #### [address] Ketones Ql (U) Negative Normal Negative [facility] Comment on above: Order Comment: Name Collection Type:: Clean-Voided Midstream Performed By: #### U A #### [address] Leukocyte esterase Test strip Ql (U) Negative Normal Negative [facility] Comment on above: Order Comment: Name Collection Type:: Clean-Voided Midstream Performed By: #### U A #### [place] [address] [place] Nitrite,Urine Negative Normal Negative [facility] Comment on above: Order Comment: Name Collection Type:: Clean-Voided Midstream Performed By: #### U A #### [place] [address] [place] Occult Blood,Urine Negative Normal Negative [facility] Comment on above: Order Comment: Name Collection Type:: Clean-Voided Midstream Result Comment: PERF ORMED BY: [place] [id number] PATHOLOGIST GEOSPATIAL ANALYST JASPER MELCHOR M.D. Performed By: #### U A #### [place] [address] [place] pH (U) 6.0 [pH] Normal 5.0-9.0 [facility] Comment on above: Order Comment: Name Collection Type:: Clean-Voided Midstream Performed By: #### U A #### [place] [address] [place] Protein,Urine Negative Normal Negative [facility] Comment on above: Order Comment: Name Collection Type:: Clean-Voided Midstream Performed By: #### U A #### [place] [address] [place] Specificy [place],Urine 1.006 Normal 1.001-1.03 0 [facility] Comment on above: Order Comment: Name Collection Type:: Clean-Voided Midstream Performed By: #### U A #### [facility] [address] [place] [address] Urobilinogen,Urine Normal Normal Normal [facility] Comment on above: Order Comment: Name Collection Type:: Clean-Voided Midstream Performed By: #### U A #### [facility] [address] [place] [address] XR chest 1V portableon 01-25 XR chest 1V portable [facility] Main [place] [address] [place] [address] XRay Report Signed Patient: Elijah Wylie Jr MR#: [id number] : 1975 Acct:[id number] Age/Sex: 47 / M ADM Date: 01/24/23 Loc: Room: [address] [place] [address] Type: ADM IN Attending Dr: Nano Gates [...] Shasha Hyatt M.D.01/25/2023 7:51 AM Dictation Location: [place] [address] Transcribed By: [facility] 01/25/23750 Dictated By: Shasha Hyatt MD 01/25/23750 Signed By: 01/25/23750 Normal [facility] Activated partial thrombopla stin time (aPTT) in platelet poor plasma by coagulation aOrdered By: Shereen Iyer on 01-24-2023 aPTT Coag (PPP) [Time] 31.6 s 25.1-36.5 [facility] Comment on above: A hematocrit value g reater than 55% may lead to inaccurate results in coagulation testing. Patients having hematocrit values >55% require a special collection tube for coagulation studies. Please contact the laboratory at [phone] for redraw instructions. Alanine aminotransferase [En zymatic activity/volume] in Serum or PlasmaOrdered By: Shereen Iyer on 01-24-2023 ALT [Catalytic activity/Vol] 12 U/L 7-52 [facility] Albumin [Mass/volume] in Ser um or Plasma by Bromocresol green (BCG) dye binding methoOrdered By: Shereen Iyer on 01-24-2023 Albumin BCG dye [Mass/Vol] 3.7 g/dL 3.5-5.7 [facility] Alkaline phosphatase [Enzyma tic activity/volume] in Serum or PlasmaOrdered By: Shereen Iyer on 01-24-2023 ALP [Catalytic activity/Vol] 78 U/L 34-104 [facility] Aspartate aminotransferase [ Enzymatic activity/volume] in Serum or PlasmaOrdered By: Shereen Iyer on 01-24-2023 AST [Catalytic activity/Vol] 24 U/L 13-39 [facility] Basophils Auto (Bld) [#/Vol] Ordered By: Shereen Iyer on 01-24-2023 Basophils (Bld) [#/Vol] 0.1 10*3/uL 0.0-0.2 [facility] Basophils/100 WBC Auto (Bld) Ordered By: Shereen Iyer on 01-24-2023 Basophils/100 WBC (Bld) 1.2 % . [facility] Bilirubin Test strip Ql (U)O rdered By: Shereen Iyer on 01-24-2023 Bilirubin Ql (U) Negative Negative [facility] Bilirubin.total [Mass/volume ] in Serum or PlasmaOrdered By: Shereen Iyer on 01-24-2023 Bilirubin [Mass/Vol] 0.8 mg/dL 0.3-1.0 [facility] Coagulation Profileon 2022 aPTT Coag (Bld) [Time] 31.6 s Normal 25.1-36.5 [facility] Comment on above: Result Comment: A he matocrit value greater than 55% may lead to inaccurate results in coagulation testing. Patients having hematocrit values >55% require a special collection tube for coagulation studies. Please contact the laboratory at [phone] for redraw instructions. PERFORMED BY: [address] [place] [address] PATHOLOGIST GEOSPATIAL ANALYST JASPER MELCHOR M.D. Performed By: #### P P #### [address] INR Coag (PPP) [Relative time] 1.0 {INR} Normal [facility] Comment on above: Result Comment: [...] 4.5 Performed By: #### P P #### [address] PT Coag (PPP) [Time] 11.9 s Normal 9.0-12.9 [facility] Comment on above: Result Comment: A he matocrit value greater than 55% may lead to inaccurate results in coagulation testing. Patients having hematocrit values >55% require a special collection tube for coagulation studies. Please contact the laboratory at [phone] for redraw instructions. Performed By: #### P P #### [address] Color Auto (U)Ordered By: Jennyfer Iyer on 01-24-2023 Color (U) Yellow Yellow [facility] Complete Blood Count Auto Di ffon 01-24-2023 Basophils (Bld) [#/Vol] 0.1 10*3/uL Normal 0.0-0.2 [facility] Comment on above: Result Comment: PERF ORMED BY: [place] [id number] PATHOLOGIST GEOSPATIAL ANALYST JIANLAN SUN M.D. Performed By: #### C MP, CBC #### [place] [address] [place] Basophils/100 WBC (Bld) 1.2 % Normal . [facility] Comment on above: Performed By: #### C MP, CBC #### [facility] [address] Eosinophils (Bld) [#/Vol] 0.5 10*3/uL High 0.0-0.45 [facility] Comment on above: Performed By: #### C MP, CBC #### [address] Eosinophils/100 WBC (Bld) 4.9 % Normal . [facility] Comment on above: Performed By: #### C MP, CBC #### [address] Erythrocyte distribution width (RBC) [Ratio] 16.6 % High 12.0-14.8 [facility] Comment on above: Performed By: #### C MP, CBC #### [address] Hematocrit (Bld) [Volume fraction] 38.2 % Low 38.8-50.0 [facility] Comment on above: Performed By: #### C MP, CBC #### [address] Hemoglobin (Bld) [Mass/Vol] 12.6 g/dL Low 13.0-17.0 [facility] Comment on above: Performed By: #### C MP, CBC #### [place] [address] [place] Lymphocytes (Bld) [#/Vol] 2.9 10*3/uL Normal 1.00-4.8 [facility] Comment on above: Performed By: #### C MP, CBC #### [place] [address] [place] Lymphocytes/100 WBC (Bld) 30.9 % Normal . [facility] Comment on above: Performed By: #### C MP, CBC #### [address] MCH (RBC) [Entitic mass] 28.6 pg Normal 27.5-35.2 [facility] Comment on above: Performed By: #### C MP, CBC #### [address] MCV (RBC) [Entitic vol] 86.6 fL Normal 83.5-101 [facility] Comment on above: Performed By: #### C MP, CBC #### [address] Mean Corpuscular HGB Conc 33.1 g/dL Normal 32.5-35.6 [facility] Comment on above: Performed By: #### C MP, CBC #### [address] Monocytes (Bld) [#/Vol] 0.5 10*3/uL Normal 0.0-0.8 [facility] Comment on above: Performed By: #### C MP, CBC #### [address] Monocytes/100 WBC (Bld) 21.74 % High 0.00-20.00 [facility] Comment on above: Result Comment: For adults in ED, MDW > 20.0 may be associated with a higher risk of sepsis during the first 12 hrs of hospital admission Performed By: #### C MP, CBC #### [place] [address] [place] Monocytes/100 WBC (Bld) 5.3 % Normal . [facility] Comment on above: Performed By: #### C MP, CBC #### [place] [address] [place] Neutrophils (Bld) [#/Vol] 5.3 10*3/uL Normal 1.8-7.7 [facility] Comment on above: Performed By: #### C MP, CBC #### [address] Neutrophils/100 WBC (Bld) 57.7 % Normal . [facility] Comment on above: Performed By: #### C MP, CBC #### [address] NRBC% 0.2 /100{WBC} Normal 0-0.5 [facility] Comment on above: Performed By: #### C MP, CBC #### [address] Platelet mean volume (Bld) [Entitic vol] 11.9 fL High 6.6-10.1 [facility] Comment on above: Performed By: #### C MP, CBC #### [address] Platelets (Bld) [#/Vol] 133 10*3/uL Low 150-450 [facility] Comment on above: Performed By: #### C MP, CBC #### [address] RBC (Bld) [#/Vol] 4.41 10*6/uL Normal 3.90-5.60 [facility] Comment on above: Performed By: #### C MP, CBC #### [address] WBC (Bld) [#/Vol] 9.2 10*3/uL Normal 4.1-10.5 [facility] Comment on above: Performed By: #### C MP, CBC #### [address] Comprehensive Metabolic Pane valentino 01-24-2023 Albumin [Mass/Vol] 3.7 g/dL Normal 3.5-5.7 [facility] Comment on above: Performed By: #### C MP, CBC #### [address] Albumin/Globulin [Mass ratio] 1.5 {ratio} Normal [facility] Comment on above: Performed By: #### C MP, CBC #### [address] ALP [Catalytic activity/Vol] 78 U/L Normal 34-104 [facility] Comment on above: Performed By: #### C MP, CBC #### [facility] [address] ALT [Catalytic activity/Vol] 12 U/L Normal 7-52 [facility] Comment on above: Performed By: #### C MP, CBC #### [facility] [address] Anion gap [Moles/Vol] 11.7 mmol/L Normal 6.0-15.0 [facility] Comment on above: Performed By: #### C MP, CBC #### [address] AST [Catalytic activity/Vol] 24 U/L Normal 13-39 [facility] Comment on above: Performed By: #### C MP, CBC #### [address] Bilirubin [Mass/Vol] 0.8 mg/dL Normal 0.3-1.0 [facility] Comment on above: Performed By: #### C MP, CBC #### [address] Calcium [Mass/Vol] 8.6 mg/dL Normal 8.6-10.3 [facility] Comment on above: Performed By: #### C MP, CBC #### [place] [address] [place] Chloride [Moles/Vol] 104 mmol/L Normal 98-107 [facility] Comment on above: Performed By: #### C MP, CBC #### [place] [address] [place] CO2 [Moles/Vol] 25.0 mmol/L Normal 21.0-31.0 [facility] Comment on above: Performed By: #### C MP, CBC #### [address] Creatinine [Mass/Vol] 0.90 mg/dL Normal 0.70-1.30 [facility] Comment on above: Performed By: #### C MP, CBC #### [address] Creatinine Clr Calc Pharmacy 142.54 Normal [facility] Comment on above: Result Comment: PERF ORMED BY: [place] [id number] PATHOLOGIST GEOSPATIAL ANALYST JASPER MELCHOR M.D. Performed By: #### C MP, CBC #### [address] GFR/1.73 sq M.predicted MDRD (S/P/Bld) [Vol rate/Area] mL/min/{1.73_m2} Normal [facility] Comment on above: Performed By: #### C MP, CBC #### [address] Globulin (S) [Mass/Vol] 2.4 g/dL Normal [facility] Comment on above: Performed By: #### C MP, CBC #### [address] Glucose [Mass/Vol] 118 mg/dL High 70-100 [facility] Comment on above: Result Comment: [facility] [place] Glucose Reference Range is dependent on time and content of last meal. Glucose of more than 200 mg/dL in a nonstressed, ambulatory subject supports the diagnosis of Diabetes Mellitus. ADA recommended reference range Performed By: #### C MP, CBC #### [address] Potassium [Moles/Vol] 3.7 mmol/L Normal 3.5-5.1 [facility] Comment on above: Result Comment: Hemo lysis is present at a level that could interfere with the result. Performed By: #### C MP, CBC #### [address] Protein [Mass/Vol] 6.1 g/dL Low 6.4-8.9 [facility] Comment on above: Performed By: #### C MP, CBC #### [address] Sodium [Moles/Vol] 137 mmol/L Normal 136-145 [facility] Comment on above: Performed By: #### C MP, CBC #### [facility] [address] Urea nitrogen [Mass/Vol] 6 mg/dL Low 7-25 [facility] Comment on above: Performed By: #### C MP, CBC #### [facility] [address] Eosinophils Auto (Bld) [#/Vo l]Ordered By: Shereen Iyer on 01-24-2023 Eosinophils (Bld) [#/Vol] 0.5 10*3/uL 0.0-0.45 [facility] Eosinophils/100 WBC Auto (Bl d)Ordered By: Shereen Iyer on 01-24-2023 Eosinophils/100 WBC (Bld) 4.9 % . [facility] Erythrocyte distribution wid th Auto (RBC) [Ratio]Ordered By: Shereen Iyer on 01-24-2023 Erythrocyte distribution width (RBC) [Ratio] 16.6 % 12.0-14.8 [facility] Globulin Calc (S) [Mass/Vol] Ordered By: Shereen Iyer on 01-24-2023 Globulin (S) [Mass/Vol] 2.4 g/dL [facility] Hematocrit Auto (Bld) [Volum e fraction]Ordered By: Shereen Iyer on 01-24-2023 Hematocrit (Bld) [Volume fraction] 38.2 % 38.8-50.0 [facility] [facility] Hemoglobin [Mass/volume] in BloodOrdered By: Shereen Iyer on 01-24-2023 Hemoglobin (Bld) [Mass/Vol] 12.6 g/dL 13.0-17.0 [facility] INR in Platelet poor plasma by Coagulation assayOrdered By: Shereen Iyer on 01-24-2023 INR Coag (PPP) [Relative time] 1.0 {INR} [facility] Comment on above: INR Therapeutic Rang e [...] on 01-24-2023 Ketones (U) [Mass/Vol] Negative Negative [facility] Leukocytes [#/volume] correc max for nucleated erythrocytes in Blood by Automated counOrdered By: Shereen Iyer on 01-24-2023 WBC corrected for nucl RBC Auto (Bld) [#/Vol] 9.2 10*3/uL 4.1-10.5 [facility] Lymphocytes Auto (Bld) [#/Vo l]Ordered By: Shereen Iyer on 01-24-2023 Lymphocytes (Bld) [#/Vol] 2.9 10*3/uL 1.00-4.8 [facility] Lymphocytes/100 WBC Auto (Bl d)Ordered By: Shereen Iyer on 01-24-2023 Lymphocytes/100 WBC (Bld) 30.9 % . [facility] MCH Auto (RBC) [Entitic mass ]Ordered By: Shereen Iyer on 01-24-2023 MCH (RBC) [Entitic mass] 28.6 pg 27.5-35.2 [facility] MCHC Auto (RBC) [Mass/Vol]Or dered By: Shereen Iyer on 01-24-2023 MCHC (RBC) [Mass/Vol] 33.1 g/dL 32.5-35.6 [facility] MCV Auto (RBC) [Entitic vol] Ordered By: Shereen Iyer on 01-24-2023 MCV (RBC) [Entitic vol] 86.6 fL 83.5-101 [facility] MR lumbar spine wo/w conon 0 01-24-2023 MR lumbar spine wo/w [place] [address] MRI Report Signed Patient: Elijah Wylie Jr MR#: [id number] : 1975 Acct:[id number] Age/Sex: 47 / M ADM Date: 01/24/23 Loc: MR Room: Type: [facility] Attending Dr: Theresa Moon DO Copies to: Theresa Moon DO Ordering Provider: Theresa Moon DO Date of Service: 09/11/23 MR/MR lumbar spine wo/w con: RADICULAPATHY MR [...] Mikie Hernandez M.D.01/24/2023 9:12 PM Dictation Location: [place] [address] Transcribed By: VEENA 01/24/232111 Dictated By: Mikie Hernandez II, MD 01/24/232105 Signed By: 01/24/232111 Normal [facility] Monocyte distribution width [Entitic volume] in Blood by AutomatedOrdered By: Shereen Iyer on 01-24-2023 Monocyte distribution width Auto (Bld) [Entitic vol] 21.74 % 0.00-20.00 [facility] Comment on above: For adults in ED, W > 20.0 may be associated with a higher risk of sepsis during the first 12 hrs of hospital admission Monocytes Auto (Bld) [#/Vol] Ordered By: Shereen Iyer on 01-24-2023 Monocytes (Bld) [#/Vol] 0.5 10*3/uL 0.0-0.8 [facility] Monocytes/100 WBC Auto (Bld) Ordered By: Shereen Iyer on 01-24-2023 Monocytes/100 WBC (Bld) 5.3 % . [facility] Neutrophils Auto (Bld) [#/Vo l]Ordered By: Shereen Iyer on 01-24-2023 Neutrophils (Bld) [#/Vol] 5.3 10*3/uL 1.8-7.7 [facility] Neutrophils/100 WBC Auto (Bl d)Ordered By: Shereen Iyer on 01-24-2023 Neutrophils/100 WBC (Bld) 57.7 % . [facility] Nitrite Test strip Ql (U)Ord ered By: Shereen Iyer on 01-24-2023 Nitrite Ql (U) Negative Negative [facility] Nucleated erythrocytes [Pres ence] in Blood by Automated countOrdered By: Shereen Iyer on 01-24-2023 Nucleated RBC Auto Ql (Bld) 0.2 /100{WBC} 0-0.5 [facility] Platelet mean volume Auto (B ld) [Entitic vol]Ordered By: Shereen Iyer on 01-24-2023 Platelet mean volume (Bld) [Entitic vol] 11.9 fL 6.6-10.1 [facility] Platelets Auto (Bld) [#/Vol] Ordered By: Shereen Iyer on 01-24-2023 Platelets (Bld) [#/Vol] 133 10*3/uL 150-450 [facility] Protein Auto test strip (U) [Mass/Vol]Ordered By: Shereen Iyer on 01-24-2023 Protein (U) [Mass/Vol] Negative Negative [facility] Protein [Mass/volume] in Ser um or PlasmaOrdered By: Shereen Iyer on 01-24-2023 Protein [Mass/Vol] 6.1 g/dL 6.4-8.9 [facility] Prothrombin time (PT)Ordered By: Shereen Iyer on 01-24-2023 PT Coag (PPP) [Time] 11.9 s 9.0-12.9 [facility] Comment on above: A hematocrit value g reater than 55% may lead to inaccurate results in coagulation testing. Patients having hematocrit values >55% require a special collection tube for coagulation studies. Please contact the laboratory at [phone] for redraw instructions. RBC Auto (Bld) [#/Vol]Ordere d By: Shereen Iyer on 01-24-2023 RBC (Bld) [#/Vol] 4.41 10*6/uL 3.90-5.60 [facility] Serum or plasma albumin/glob ulin mass ratioOrdered By: Shereen Iyer on 01-24-2023 Albumin/Globulin [Mass ratio] 1.5 {ratio} [facility] Specific gravity Auto test s trip (U) [Rel density]Ordered By: Shereen Iyer on 01-24-2023 Specific gravity (U) [Rel density] 1.006 1.001-1.03 0 [facility] Urine clarity by refractomet ry automatedOrdered By: Shereen Iyer on 01-24-2023 Clarity Refractometry automated (U) Clear Clear [facility] Urine glucose measurement by automated test strip (mass/volume)Ordered By: Shereen Iyer on 01-24-2023 Glucose Auto test strip (U) [Mass/Vol] Normal mg/dL Normal [facility] Urine hemoglobin detection b y automated test stripOrdered By: Shereen Iyer on 01-24-2023 Hemoglobin Auto test strip Ql (U) Negative Negative [facility] Urine leukocyte esterase det ection by automated test stripOrdered By: Shereen Iyer on 01-24-2023 Leukocyte esterase Auto test strip Ql (U) Negative Negative [facility] Urobilinogen Auto test strip (U) [Mass/Vol]Ordered By: Shereen Iyer on 01-24-2023 Urobilinogen (U) [Mass/Vol] Normal mg/dL Normal [facility] WBC Auto (Bld) [#/Vol]Ordere d By: Shereen Iyer on 01-24-2023 WBC (Bld) [#/Vol] 9.2 10*3/uL 4.1-10.5 [facility] pH Auto test strip (U)Ordere d By: Shereen Iyer on 01-24-2023 pH (U) 6.0 [pH] 5.0-9.0 [facility] XR ANKLE RT MIN 3 VIEWSon XR [...] LOUIS Date: 2022-10-12 20:01 Normal [facility] XR LSPINE 2_3 VIEWSon 2022 XR LSPINE [...] BRICE Date: 2022-10-12 20:16 Normal [facility] CNPNon 08-17-2022 CNPN Telephone (PAINLN) ELIJAH WYLIE JR. ([id number]) 1975 M Date Time Provider Department 08/17/22 GENA CHEUNG PAINLN During your visit today, we recorded the following information about you: Laurie León MA 08/27/2022 1:17 PM Addendum Patient was advised of the following: This is a follow up phone call regarding your appointment with Dr Cheung, which you are scheduled to see at [facility] on 08/18/2022. 1) Have you been evaluated [...] need to reschedule please call us at [phone]. Attempted to contact patient VM box not [...] pain [R10.9] 07/19/2018 Coronary artery disease involving apache keenan*05/13/2022 ST elevation myocardial infarction involving ri*05/13/2022 S/P right coronary artery (RCA) stent placement*05/13/2022 Encounter Status:Closed by LAURIE LEÓN on 08/27/22 [facility] CNOVon 07-21-2022 CNOV Office Visit (CARDLO ) ELIJAH WYLIE JR. 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 Ordering physician: JAZMINE ESTRELLA Indication: s/p PCI [...] * * Final * * * [facility] [employer] [facility] Image : [id number] oDynamicsSISUID Normal [facility] ECG COMPLETEon 05-14-2022 Atrial Rate 53 BPM [facility] Calculated P [place] 3 degrees [facility] Calculated R [place] 28 degrees [facility] Calculated T [place] 54 degrees [facility] P-R Interval 180 ms [facility] QRS Duration 94 ms [facility] QT Interval 456 ms [facility] QTC Calculation (Bazett) 427 ms [facility] (JUANY ) ELIJAH WYLIE JR. ([id number]) 1975 M Date Time Provider Department 05/13/22 2:20 PM DELORES, JAZMINE RAFA CARDMM During your visit today, we recorded the following information about you: Pulse Blood pressure Weight Height 56/minute 138/96 113.9 kg 1.956 m Jazmine Estrella, 05/13/2022 4:35 PM Signed [facility] OUTPATIENT VISIT DATE May 13, 2022 PRIMARY CARE PHYSICIAN: Meng Mathews [address] [place] [address] HISTORY OF PRESENT ILLNESS: Mr. 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 He apparently had some challenges as well [...] grown children. 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 He smokes a pack [...] for abdom (more content not included)... Normal [facility] ECG COMPLETEon 05-13-2022 ECG COMPLETE Ventricular Rate : 5 3 BPM Atrial Rate : 53 BPM P-R Interval : 180 ms QRS Duration : 94 ms Q-T Interval : 456 ms QTC Calculation(Bazett) : 427 ms Calculated P [place] : 3 degrees Calculated R [place] : 28 degrees Calculated T [place] : 54 degrees SINUS BRADYCARDIA OTHERWISE NORMAL ECG Confirmed by MD ESTRELLA GREGORY () on 05/14/2022 12:52:27 PM NAME : ELIJAH WYLIE PID : [id number] : 1975 Gender : Male Race : ORD : [id number] Procedure Date : May 13 2022 14:35:45 Edit Date : May 14 2022 12:52:29 Diagnosis: SINUS BRADYCARDIA OTHERWISE NORMAL ECG Confirmed by MD ESTRELLA GREGORY () on 05/14/2022 12:52:27 PM Test Reason : Location : 158 : [facility] Overread By : MD ESTRELLA GREGORY Edited By : MD ESTRELLA GREGORY Referred By : JAZMINE ESTRELLA Acquired by : JANELLE, Aileen [facility] BMPon 03-23-2022 Anion gap [Moles/Vol] 9 mmol/L [facility] Calcium [Mass/Vol] 9.0 mg/dL 8.5 - 9.9 mg/dL [employer] [facility] Chloride [Moles/Vol] 107 mmol/L [facility] CO2 [Moles/Vol] 24 mmol/L [facility] Creatinine [Mass/Vol] 0.79 mg/dL 0.70 - 1.20 mg/dL [facility] GFR/1.73 sq M.predicted MDRD (S/P/Bld) [Vol rate/Area] 60 - PINF [facility] Comment on above: Pediatric calculator link https://www.kidney.org/professionals/kdoqi/gfr_calculatorped [...] [Mass/Vol] 97 mg/dL 70 - 99 mg/dL [facility] Potassium [Moles/Vol] 4.1 mmol/L [facility] Sodium [Moles/Vol] 140 mmol/L [facility] Urea nitrogen (BldV) [Mass/Vol] 9 mg/dL 6 - 20 mg/dL [facility] Basic Metabolic Panelon 11-0 Anion gap [Moles/Vol] 9 mmol/L Normal 9-15 [facility] Comment on above: Performed By: #### B MP ####[facility] [facility] [phone] Calcium [Mass/Vol] 9.0 mg/dL Normal 8.5-9.9 [facility] Comment on above: Performed By: #### B MP ####[facility] [facility] [phone] Chloride [Moles/Vol] 107 mmol/L Normal 95-107 [facility] Comment on above: Performed By: #### B MP ####[facility] [facility] [phone] CO2 [Moles/Vol] 24 mmol/L Normal 20-31 [facility] Comment on above: Performed By: #### B MP ####[facility] [facility] [phone] Creatinine [Mass/Vol] 0.79 mg/dL Normal 0.70-1.20 [facility] Comment on above: Performed By: #### B MP ####[facility] [facility] [phone] GFR >60.0 Normal >60 [facility] Comment on above: Result Comment: Stew atric calculator link https://www.kidney.org/professionals/kdoqi/gfr_calculatorped Effective Feb 15, 2022 These results are not intended for use in patients <18 years of age. eGFR results are calculated without a race factor using the 2021 CKD-EPI equation. Careful clinical correlation is recommended, particularly when comparing to results calculated using previous equations. The CKD-EPI equation is less accurate in patients with extremes of muscle mass, extra-renal metabolism of creatinine, excessive creatinine ingestion, or following therapy that affects renal tubular secretion. Performed By: #### B MP ####[facility] [place] [phone] Glucose [Mass/Vol] 97 mg/dL Normal 70-99 [facility] Comment on above: Performed By: #### B MP ####[facility] [place] [phone] Potassium [Moles/Vol] 4.1 mmol/L Normal 3.4-4.9 [facility] Comment on above: Performed By: #### B MP ####[facility] [place] [phone] Sodium [Moles/Vol] 140 mmol/L Normal 135-144 [facility] Comment on above: Performed By: #### B MP ####[facility] [place] [phone] Urea nitrogen [Mass/Vol] 9 mg/dL Normal 6-20 [facility] Comment on above: Performed By: #### B MP ####[facility] [place] [phone] CBC With Platelet and Differ entialon 03-23-2022 Abs Imm Granulocytes 0.0 K/uL Normal [facility] Comment on above: Performed By: #### C XCHERYLN #### [facility] [address] [place] [address] Basophils (Bld) [#/Vol] 0.1 10*3/uL Normal 0.0-0.1 [facility] Comment on above: Performed By: #### C XWAN #### [facility] [address] [place] [address] Basophils/100 WBC (Bld) 1.3 % Critically high 0.2-1.2 [facility] Comment on above: Performed By: #### C XCHERYLN #### [facility] [address] [place] [address] Eosinophils (Bld) [#/Vol] 0.3 10*3/uL Normal 0.0-0.5 [facility] Comment on above: Performed By: #### C XWAN #### [facility] [address] [place] [address] Eosinophils/100 WBC (Bld) 4.1 % Normal 0.8-7.0 [facility] Comment on above: Performed By: #### C XWAN #### [facility] [address] [place] [address] Erythrocyte distribution width (RBC) [Ratio] 14.0 % Normal 11.6-14.4 [facility] Comment on above: Performed By: #### C XWAAnita #### [facility] [address] [place] [address] Hematocrit (Bld) [Volume fraction] 43.2 % Normal 42.0-52.0 [facility] Comment on above: Performed By: #### C XWAN #### [facility] [address] [place] [address] Hemoglobin (Bld) [Mass/Vol] 14.2 g/dL Normal 13.7-17.5 [facility] Comment on above: Performed By: #### C XWAN #### [facility] [address] [place] [address] Imm Granulocytes 0.4 % Normal [facility] Comment on above: Performed By: #### C XWAN #### [facility] [address] [place] [address] Lymphocytes (Bld) [#/Vol] 2.6 10*3/uL Normal 1.3-3.6 [facility] Comment on above: Performed By: #### C XWAN #### [facility] [address] [place] [address] Lymphocytes/100 WBC (Bld) 31.2 % Normal [facility] Comment on above: Performed By: #### C XTALISHA #### [facility] [address] [place] [address] MCH (RBC) [Entitic mass] 30.3 pg Normal 25.7-32.2 [facility] Comment on above: Performed By: #### C XTALISHA #### [facility] [address] [place] [address] MCHC 32.9 % Normal 32.3-36.5 [facility] Comment on above: Performed By: #### C XTALISHA #### [facility] [address] [place] [address] MCV (RBC) [Entitic vol] 92.3 fL Critically high 79.0-92.2 [facility] Comment on above: Performed By: #### C XTALISHA #### [facility] [address] [place] [address] Monocytes (Bld) [#/Vol] 0.5 10*3/uL Normal 0.3-0.8 [facility] Comment on above: Performed By: #### C XWAAnita #### [facility] [address] [place] [address] Monocytes/100 WBC (Bld) 6.5 % Normal 5.3-12.2 [facility] Comment on above: Performed By: #### C XTALISHA #### [facility] [address] [place] [address] Neutrophils (Bld) [#/Vol] 4.7 10*3/uL Normal 1.8-5.4 [facility] Comment on above: Performed By: #### C XWAN #### [facility] [address] [place] [address] Neutrophils/100 WBC (Bld) 56.5 % Normal 34.0-67.9 [facility] Comment on above: Performed By: #### C XWAAnita #### [facility] [address] [place] [address] Platelets (Bld) [#/Vol] 180 10*3/uL Normal 163-337 [facility] Comment on above: Performed By: #### C XTALISHA #### [facility] [address] [place] [address] RBC (Bld) [#/Vol] 4.68 10*6/uL Normal 4.63-6.08 [facility] Comment on above: Performed By: #### C HENRYN #### [facility] [address] [place] [address] WBC (Bld) [#/Vol] 8.3 10*3/uL Normal 4.2-9.0 [facility] Comment on above: Performed By: #### C OSIEL #### [facility] [address] [place] [address] CBC with Auto Differentialon 03-23-2022 Basophils (Bld) [#/Vol] 0.1 10*3/uL 0.0 - 0.1 K/uL [facility] Basophils/100 WBC (Bld) 1.3 % High 0.2 - 1.2 % [facility] Eosinophils (Bld) [#/Vol] 0.3 10*3/uL 0.0 - 0.5 K/uL [facility] Eosinophils/100 WBC (Bld) 4.1 % 0.8 - 7.0 % [facility] Hematocrit (Bld) [Volume fraction] 43.2 % 42.0 - 52.0 % [facility] Hemoglobin (Bld) [Mass/Vol] 14.2 g/dL 13.7 - 17.5 g/dL [facility] Immature granulocytes (Bld) [#/Vol] 0.0 10*3/uL [facility] Immature granulocytes/100 WBC (Bld) 0.4 % [facility] Interpretation and review of laboratory results Abnormal [facility] Lymphocytes (Bld) [#/Vol] 2.6 10*3/uL 1.3 - 3.6 K/uL [facility] Lymphocytes/100 WBC (Bld) 31.2 % [facility] MCH (RBC) [Entitic mass] 30.3 pg 25.7 - 32.2 pg [facility] MCHC (RBC) [Mass/Vol] 32.9 % 32.3 - 36.5 % [facility] MCV (RBC) [Entitic vol] 92.3 fL High 79.0 - 92.2 fL [facility] Monocytes (Bld) [#/Vol] 0.5 10*3/uL 0.3 - 0.8 K/uL [facility] Monocytes/100 WBC (Bld) 6.5 % 5.3 - 12.2 % [facility] Neutrophils Absolute 4.7 K/uL 1.8 - 5 .4 K/uL [facility] Neutrophils/100 WBC (Bld) 56.5 % 34.0 - 67.9 % [facility] Platelet distribution width (Bld) [Ratio] 14.0 % 11.6 - 14.4 % [facility] Platelets (Bld) [#/Vol] 180 10*3/uL 163 - 337 K/uL [facility] RBC (Bld) [#/Vol] 4.68 10*6/uL [facility] WBC (Bld) [#/Vol] 8.3 10*3/uL 4.2 - 9.0 K/uL [facility] CT CERVICAL SPINE WO CONTRAS Ton 03-23-2022 [...] Kip Hill MD 03/23/22 Final result Normal [facility] 1. There is no acute compression fracture or subluxation of the cervical spine. 2. Very minimal multilevel degenerative disc and degenerative joint disease. . [facility] RADIOLOGY EXAMINATION: CT OF THE CERVICAL SPINE [...] lung apices are negative for a pneumothorax. [facility] RADIOLOG[facility] Kip Hill MD - 03/23/2022 EXAMINATION: [...] degenerative disc and degenerative joint disease. . [employer]ct[facility] Phone: Anctu Phone: Radiology Study observation (narrative) Anctu Phone: CT HEAD WO CONTRASTon 2021 CT [...] Kip Hill MD 03/23/22 Final result Normal [facility] No acute intracrania l abnormality. Specifically, there is no acute intracranial hemorrhage [facility] RADIOLOGY EXAMINATION: CT OF THE HEAD WITHOUT [...] of the visualized skull or soft tissues. [facility] RADIOLOG[facility] Kip Hill MD - 03/23/2022 EXAMINATION: [...] Specifically, there is no acute intracranial hemorrhage [employer] Phone: Radiology Study observation (narrative) Anctu Phone: CT HEAD WO CONTRASTOrdered B y: Kip Hill on 03-23-2022 Anctu Phone: CT LUMBAR SPINE WO CONTRASTo n [...] Ramos MD Signed by: Dwayne Ramos MD 11/8/22 Final result Normal [facility] 1. No new lumbar spi ne fractures. Transverse process fractures from L2 through L4 on the right, old. 2. 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 Thecal sac measures 6 mm. [facility] RADIOLOGY EXAMINATION: CT OF THE LUMBAR SPINE [...] SOFT TISSUES/RETROPERITONEUM: No paraspinal mass is seen. [facility] RADIOLOG[facility] Dwayne Ramos MD - EXAMINATION: CT [...] canal stenosis. Thecal sac measures 6 mm. [employer] Work Phone: Radiology Study observation (narrative) [employer] Work Phone: CT LUMBAR SPINE MIGDALIA ALMENDAREZ rdered By: Dwayne Ramos on 03-23-2022 [employer] Work Phone: Urinalysis with Reflex to Cu ltureon 03-23-2022 Bilirubin Urine Negative Negative [facility] Blood, Urine Negative Negative [facility] Clarity, UA Clear Clear [facility] Color, UA Yellow Straw/Braxton ow [facility] Glucose, Ur Negative Negative mg/dL [facility] Ketones Ql (U) Negative Negative mg/dL [facility] Leukocyte esterase Test strip Ql (U) Negative Negative [facility] Nitrite, Urine Negative Negative [facility] pH, UA 7.5 5.0 - 9.0 [facility] Protein, UA Negative Negative mg/dL [facility] Specific [place], UA 1.015 1.005 - 1.030 [facility] Urine Reflex to Culture Not Indicated [facility] Urobilinogen, Urine 1.0 NINF [facility] Urinalysis, reflex to cultur carol 03-23-2022 Bilirubin Ql (U) Negative Normal Negative [facility] Comment on above: Performed By: #### U AR #### [facility] [facility] [address] [place] [address] Clarity (U) Clear Normal Clear [facility] Comment on above: Performed By: #### U AR #### [facility] [address] [place] [address] Color (U) Yellow Normal Straw/Braxton [facility] Comment on above: Performed By: #### U AR #### [facility] [address] [place] [address] Glucose Ql (U) Negative Normal Negative [facility] Comment on above: Performed By: #### U AR #### [facility] [address] [place] [address] Hemoglobin Ql (U) Negative Normal Negative [facility] Comment on above: Performed By: #### U AR #### [facility] [address] [place] [address] Ketones Ql (U) Negative Normal Negative [facility] Comment on above: Performed By: #### U AR #### [facility] [address] [place] [address] Leukocyte esterase Test strip Ql (U) Negative Normal Negative [facility] Comment on above: Performed By: #### U AR #### [facility] [address] [place] [address] Nitrite Ql (U) Negative Normal Negative [facility] Comment on above: Performed By: #### U AR #### [facility] [address] [place] [address] pH (U) 7.5 [pH] Normal 5.0-9.0 [facility] Comment on above: Performed By: #### U AR #### [facility] [address] [place] [address] Protein Ql (U) Negative Normal Negative [facility] Comment on above: Performed By: #### U AR #### [facility] [address] [place] [address] Specific gravity (U) [Rel density] 1.015 Normal 1.005-1.03 [facility] Comment on above: Performed By: #### U AR #### [facility] [address] [place] [address] Urine Reflexed to Culture Not Indicated Normal [facility] Comment on above: Performed By: #### U AR #### [facility] [address] [place] [address] Urobilinogen Qn (U) 1.0 {Phoenix'U}/dL Normal < 2.0 [facility] Comment on above: Performed By: #### U AR #### [facility] [address] [place] [address] XR CHEST (2 VW)on 03-23-2022 XR CHEST [...] Kip Hill MD 03/23/22 Final result Normal [facility] No acute process. [facility] EXAMINATION: TWO XRAY VIEWS OF THE CHEST 03/23/2022 10:50 am COMPARISON: 05/14/2021 HISTORY: ORDERING SYSTEM PROVIDED HISTORY: trauma TECHNOLOGIST PROVIDED HISTORY: Reason for exam:->trauma What reading provider will be dictating this exam?->CRC FINDINGS: The lungs are without acute focal process. There is no effusion or pneumothorax. The cardiomediastinal silhouette is without acute process. The osseous structures are without acute process. [facility] Kpi Hill MD - 03/23/2022 EXAMINATION: TWO XRAY [...] without acute process. IMPRESSION: No acute process. Anctu Phone: Anctu Phone: Radiology Study observation (narrative) Anctu Phone: XR SHOULDER RIGHT (MIN 2 VIE [...] Sylvain Bradshaw MD 03/23/22 Final result Normal [facility] Unremarkable right [facility] EXAMINATION: THREE XRAY VIEWS OF THE RIGHT SHOULDER 03/23/2022 9:50 am COMPARISON: None. HISTORY: ORDERING SYSTEM PROVIDED HISTORY: trauma TECHNOLOGIST PROVIDED HISTORY: Reason for exam:->trauma What reading provider will be dictating this exam?->CRC FINDINGS: There is no evidence of acute fracture. There is normal alignment. No acute joint abnormality. No focal osseous lesion. No focal soft tissue abnormality. [facility] Sylvain Bradshaw MD - 03/23/2022 EXAMINATION: [...] soft tissue abnormality. IMPRESSION: Unremarkable right shoulder. Anctu Phone: Radiology Study observation (narrative) Anctu Phone: XR SHOULDER RIGHT (MIN 2 VIE WS)Ordered By: Sylvain Bradshaw on 03-23-2022 Anctu Phone: XR KNEE RIGHT (MIN 4 VIEWS)o [...] Kristen Henry DO 12/02/21 Final result Normal [facility] Alcoholon 10-23-2021 Blood Alcohol Concentration Not indicated Normal [facility] Comment on above: Performed By: #### T ROP #### [facility] [address] [place] [address] Ethanol [Mass/Vol] mg/dL Normal [facility] Comment on above: Performed By: #### T ROP #### [facility] [address] [place] [address] CBC With Platelet and Differ entialon 10-23-2021 Abs Imm Granulocytes 0.1 K/uL Normal [facility] Comment on above: Performed By: #### T ROP #### [facility] [address] [place] [address] Basophils (Bld) [#/Vol] 0.1 10*3/uL Normal 0.0-0.1 [facility] Comment on above: Performed By: #### T ROP #### [facility] [address] [place] [address] Basophils/100 WBC (Bld) 0.9 % Normal 0.2-1.2 [facility] Comment on above: Performed By: #### T ROP #### [facility] [address] [place] [address] Eosinophils (Bld) [#/Vol] 0.4 10*3/uL Normal 0.0-0.5 [facility] Comment on above: Performed By: #### T ROP #### [facility] [address] [place] [address] Eosinophils/100 WBC (Bld) 2.7 % Normal 0.8-7.0 [facility] Comment on above: Performed By: #### T ROP #### [facility] [address] [place] [address] Erythrocyte distribution width (RBC) [Ratio] 14.7 % Critically high 11.6-14.4 [facility] Comment on above: Performed By: #### T ROP #### [facility] [address] [place] [address] Hematocrit (Bld) [Volume fraction] 44.6 % Normal 42.0-52.0 [facility] Comment on above: Performed By: #### T ROP #### [facility] [address] [place] [address] Hemoglobin (Bld) [Mass/Vol] 15.4 g/dL Normal 13.7-17.5 [facility] Comment on above: Performed By: #### T ROP #### [facility] [address] [place] [address] Imm Granulocytes 0.4 % Normal [facility] Comment on above: Performed By: #### T ROP #### [facility] [address] [place] [address] Lymphocytes (Bld) [#/Vol] 2.3 10*3/uL Normal 1.3-3.6 [facility] Comment on above: Performed By: #### T ROP #### [facility] [address] [place] [address] Lymphocytes/100 WBC (Bld) 17.0 % Normal [facility] Comment on above: Performed By: #### T ROP #### [facility] [address] [place] [address] MCH (RBC) [Entitic mass] 32.4 pg Critically high 25.7-32.2 [facility] Comment on above: Performed By: #### T ROP #### [facility] [address] [place] [address] MCHC 34.5 % Normal 32.3-36.5 [facility] Comment on above: Performed By: #### T ROP #### [facility] [address] [place] [address] MCV (RBC) [Entitic vol] 93.9 fL Critically high 79.0-92.2 [facility] Comment on above: Performed By: #### T ROP #### [facility] [address] [place] [address] Monocytes (Bld) [#/Vol] 0.9 10*3/uL Critically high 0.3-0.8 [facility] Comment on above: Performed By: #### T ROP #### [facility] [address] [place] [address] Monocytes/100 WBC (Bld) 6.4 % Normal 5.3-12.2 [facility] Comment on above: Performed By: #### T ROP #### [facility] [address] [place] [address] Neutrophils (Bld) [#/Vol] 9.9 10*3/uL Critically high 1.8-5.4 [facility] Comment on above: Performed By: #### T ROP #### [facility] [address] [place] [address] Neutrophils/100 WBC (Bld) 72.6 % Critically high 34.0-67.9 [facility] Comment on above: Performed By: #### T ROP #### [facility] [address] [place] [address] Platelets (Bld) [#/Vol] 188 10*3/uL Normal 163-337 [facility] Comment on above: Performed By: #### T ROP #### [facility] [address] [facility] [address] RBC (Bld) [#/Vol] 4.75 10*6/uL Normal 4.63-6.08 [facility] Comment on above: Performed By: #### T ROP #### [facility] [address] [facility] [address] WBC (Bld) [#/Vol] 13.7 10*3/uL Critically high 4.2-9.0 [facility] Comment on above: Performed By: #### T ROP #### [facility] [address] [facility] [address] CBC with Auto Differentialon 10-23-2021 Basophils (Bld) [#/Vol] 0.1 10*3/uL 0.0 - 0.1 K/uL [facility] Basophils/100 WBC (Bld) 0.9 % 0.2 - 1.2 % [facility] Eosinophils (Bld) [#/Vol] 0.4 10*3/uL 0.0 - 0.5 K/uL [facility] Eosinophils/100 WBC (Bld) 2.7 % 0.8 - 7.0 % [facility] Hematocrit (Bld) [Volume fraction] 44.6 % 42.0 - 52.0 % [facility] Hemoglobin (Bld) [Mass/Vol] 15.4 g/dL 13.7 - 17.5 g/dL [facility] Immature granulocytes (Bld) [#/Vol] 0.1 10*3/uL [facility] Immature granulocytes/100 WBC (Bld) 0.4 % [facility] Interpretation and review of laboratory results Abnormal [facility] Lymphocytes (Bld) [#/Vol] 2.3 10*3/uL 1.3 - 3.6 K/uL [facility] Lymphocytes/100 WBC (Bld) 17.0 % [facility] MCH (RBC) [Entitic mass] 32.4 pg High 25.7 - 32.2 pg [facility] MCHC (RBC) [Mass/Vol] 34.5 % 32.3 - 36.5 % [facility] MCV (RBC) [Entitic vol] 93.9 fL High 79.0 - 92.2 fL [facility] Monocytes (Bld) [#/Vol] 0.9 10*3/uL High 0.3 - 0.8 K/uL [facility] Monocytes/100 WBC (Bld) 6.4 % 5.3 - 12.2 % [facility] Neutrophils Absolute 9.9 K/uL High 1.8 - 5 .4 K/uL [facility] Neutrophils/100 WBC (Bld) 72.6 % High 34.0 - 67.9 % [facility] Platelet distribution width (Bld) [Ratio] 14.7 % High 11.6 - 14.4 % [facility] Platelets (Bld) [#/Vol] 188 10*3/uL 163 - 337 K/uL [facility] RBC (Bld) [#/Vol] 4.75 10*6/uL [facility] WBC (Bld) [#/Vol] 13.7 10*3/uL High 4.2 - 9.0 K/uL [facility] CT ABDOMEN PELVIS W IV CONTR Mark [...] Zamzam Resendez MD 10/23/21 Final result Normal [facility] CT CERVICAL SPINE WO CONTRAS Ton [...] Jerson Mane MD 10/23/21 Final result Normal [facility] There are no acute o sseous changes. [facility] EXAMINATION: CT CERVICAL SPINE WO CONTRAST, [...] changes are noted in the lung apices. [facility] Jerson Mane MD - 10/23/2021 EXAMINATION: [...] IMPRESSION: There are no acute osseous changes. [facility] Conversation Media Work Phone: [facility] Work Phone: CT CHEST W CONTRASTon 2021 [...] Zamzam Resendez MD 10/23/21 Final result Normal [facility] CT HEAD WO CONTRASTon 2021 CT [...] Jerson Mane MD 10/23/21 Final result Normal [facility] CT Head WO Contraston 2021 There is no acute intracranial process. [facility] EXAMINATION: CT HEAD WO CONTRAST, 10/23/2021 [...] sinuses are unremarkable. The calvarium is intact. [facility] Jerson Mane MD - 10/23/2021 EXAMINATION: [...] IMPRESSION: There is no acute intracranial process. [facility]1Cast Phone: Radiology Study observation (narrative) [facility] [email or web address] [facility]1Cast Phone: CT Head WO ContrastOrdered B y: Jerson Mane on 10-23-2021 [facility] Work Phone: CT LUMBAR SPINE WO CONTRASTo [...] David Tarango MD 10/23/21 Final result Normal [facility] Fractures, right L2-L4 transverse processes. Other findings discussed. All CT scans at this facility use dose modulation, iterative reconstruction, and/or weight based dosing when appropriate to reduce radiation dose to as low as reasonably achievable. 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 [facility] SignDavid mehta MD - 10/23/2021 CT lumbar spine without [...] dose to as low as reasonably achievable. [facility] Work Phone: [facility] [employer] Phone: CT THORACIC SPINE WO CONTRAS Ton [...] David Tarango MD 10/23/21 Final result Normal [facility] Alignment maintained. No fracture. Other findings discussed. All CT scans at this facility use dose modulation, iterative reconstruction, and/or weight based dosing when appropriate to reduce radiation dose to as low as reasonably achievable. [facility] CT thoracic spine wi thout intravenous [...] Limited imaging abdomen shows remote gastric bypass. [facility] SignerDavid MD - 10/23/2021 CT thoracic [...] dose to as low as reasonably achievable. [employer] Phone: CT THORACIC SPINE WO CONTRAS TOrdered By: David Tarango on 10-23-2021 [facility] [employer] Phone: Comprehensive Metabolic Pane valentino 10-23-2021 Albumin [Mass/Vol] 3.7 g/dL Normal 3.5-4.6 [facility] Comment on above: Performed By: #### T ROP #### [facility] [address] [place] [address] 156-87 ALP [Catalytic activity/Vol] 103 U/L Normal 35-104 [facility] Comment on above: Performed By: #### T ROP #### [facility] [address] [place] [address] ALT [Catalytic activity/Vol] 14 U/L Normal 0-41 [facility] Comment on above: Performed By: #### T ROP #### [facility] [address] [place] [address] Anion gap [Moles/Vol] 13 mmol/L Normal 9-15 [facility] Comment on above: Performed By: #### T ROP #### [facility] [address] [place] [address] AST [Catalytic activity/Vol] 20 U/L Normal 0-40 [facility] Comment on above: Performed By: #### T ROP #### [facility] [address] [place] [address] Bilirubin [Mass/Vol] 0.6 mg/dL Normal 0.2-0.7 [facility] Comment on above: Performed By: #### T ROP #### [facility] [address] [place] [address] Calcium [Mass/Vol] 8.5 mg/dL Normal 8.5-9.9 [facility] Comment on above: Performed By: #### T ROP #### [facility] [address] [place] [address] Chloride [Moles/Vol] 107 mmol/L Normal 95-107 [facility] Comment on above: Performed By: #### T ROP #### [facility] [address] [place] [address] CO2 [Moles/Vol] 21 mmol/L Normal 20-31 [facility] Comment on above: Performed By: #### T ROP #### [facility] [address] [place] [address] Creatinine [Mass/Vol] 0.71 mg/dL Normal 0.70-1.20 [facility] Comment on above: Performed By: #### T ROP #### [facility] [address] [place] [address] GFR >60.0 Normal >60 [facility] Comment on above: Result Comment: >60 mL/min/1.73m2 EGFR, calc. for ages 18 and older using the MDRD formula (not corrected for weight), is valid for stable renal function. Performed By: #### T ROP #### [facility] [address] [place] [address] GFR/1.73 sq M.predicted among blacks MDRD (S/P/Bld) [Vol rate/Area] mL/min/{1.73_m2} Normal >60 [facility] Comment on above: Result Comment: >60 mL/min/1.73m2 EGFR, calc. for ages 18 and older using the MDRD formula (not corrected for weight), is valid for stable renal function. Performed By: #### T ROP #### [facility] [address] [place] [address] Globulin (S) [Mass/Vol] 2.5 g/dL Normal 2.3-3.5 [facility] Comment on above: Performed By: #### T ROP #### [facility] [address] [place] [address] Glucose [Mass/Vol] 104 mg/dL Critically high 70-99 [facility] Comment on above: Performed By: #### T ROP #### [facility] [address] [place] [address] Potassium [Moles/Vol] 3.9 mmol/L Normal 3.4-4.9 [facility] Comment on above: Performed By: #### T ROP #### [facility] [address] [place] [address] Protein [Mass/Vol] 6.2 g/dL Low 6.3-8.0 [facility] Comment on above: Performed By: #### T ROP #### [facility] [address] [place] [address] Sodium [Moles/Vol] 141 mmol/L Normal 135-144 [facility] Comment on above: Performed By: #### T ROP #### [facility] [address] [place] [address] Urea nitrogen [Mass/Vol] 7 mg/dL Normal 6-20 [facility] Comment on above: Performed By: #### T ROP #### [facility] [address] [place] [address] Albumin [Mass/Vol] 3.7 g/dL 3.5 - 4.6 g/dL [facility] ALP (Bld) [Catalytic activity/Vol] 103 U/L 35 - 104 U/L [facility] ALT [Catalytic activity/Vol] 14 U/L 0 - 41 U/L [facility] Anion gap [Moles/Vol] 13 mmol/L [facility] AST [Catalytic activity/Vol] 20 U/L 0 - 40 U/L [facility] Bilirubin [Mass/Vol] 0.6 mg/dL 0.2 - 0 .7 mg/dL [facility] Calcium [Mass/Vol] 8.5 mg/dL 8.5 - 9.9 mg/dL [facility] Chloride [Moles/Vol] 107 mmol/L [facility] CO2 [Moles/Vol] 21 mmol/L [facility] Creatinine [Mass/Vol] 0.71 mg/dL 0.70 - 1.20 mg/dL [facility] Free PSA/Total PSA [Mass fraction] 6.2 g/dL Low 6.3 - 8.0 g/dL [facility] GFR >60.0 >60 [facility] Comment on above: >60 mL/min/1.73m2 EG FR, calc. for ages 18 and older using the MDRD formula (not corrected for weight), is valid for stable renal function. GFR Non- >60.0 >60 [facility] Comment on above: >60 mL/min/1.73m2 EG FR, calc. for ages 18 and older using the MDRD formula (not corrected for weight), is valid for stable renal function. Globulin (S) [Mass/Vol] 2.5 g/dL 2.3 - 3.5 g/dL [facility] Glucose [Mass/Vol] 104 mg/dL High 70 - 99 mg/dL [facility] Interpretation and review of laboratory results Abnormal [facility] Potassium [Moles/Vol] 3.9 mmol/L [facility] Sodium [Moles/Vol] 141 mmol/L [facility] Urea nitrogen (BldV) [Mass/Vol] 7 mg/dL 6 - 20 mg/dL [facility] Ethanolon 10-23-2021 Ethanol Lvl <10 mg/dL [facility] Ethanol percent Not indicated G/dL [facility] Lipaseon 10-23-2021 Lipase [Catalytic activity/Vol] 27 U/L Normal 12-95 [facility] Comment on above: Performed By: #### C XWAN #### [facility] [address] [place] [address] Lipase [Catalytic activity/Vol] 27 U/L 12 - 95 U/L [facility] No Panel Informationon 10-23 Impression: 1. Fracture right transverse processes of L2, L3 and L4 vertebrae without adjacent hematomas. 2. Otherwise, no organ injuries or hematomas are seen in chest, abdomen or pelvis. [facility] Indication: Trauma. Comparison: CT chest of [...] fractures. No aggressive osseous lesions are seen. [facility] Mal, Zamzam Bautista MD - 10/23/2021 Indication: Trauma. Comparison: CT [...] are seen in chest, abdomen or pelvis. [facility] [employer] Work Phone: Radiology Study observation (narrative) [facility] Work Phone: [facility] No Panel InformationOrdered By: Zamzam Resendez on 10-23-2021 [facility] Work Phone: Prothrombin Timeon 2 INR Coag (PPP) [Relative time] 1.0 {INR} Normal [facility] Comment on above: Performed By: #### T ROP #### [facility] [address] [facility] [address] PT Coag (PPP) [Time] 12.8 s Normal 12.3-14.9 [facility] Comment on above: Performed By: #### T ROP #### [facility] [address] [facility] [address] Protime-INRon 10-23-2021 INR Coag (Bld) [Relative time] 1.0 {INR} [facility] PT Coag (PPP) [Time] 12.8 s [facility] Troponinon 10-23-2021 Troponin I.cardiac [Mass/Vol] ng/mL Normal 0.000-0.01 [facility] Comment on above: Result Comment: Meth odology by Troponin T. Performed By: #### T ROP #### [facility] [address] [place] [address] Troponin I.cardiac [Mass/Vol] ng/mL 0.000 - 0.010 ng/mL [facility] Comment on above: Methodology by Ambrosio Cervantes [facility] Khalif 10-10-2021 CNPN Telephone (NIQ) ELIJAH WYLIE JR. ([id number]) 1975 M Date Time Provider Department 10/10/21 UNKNOWN NIQ During your visit today, we recorded the following information about you: Paty Castorena 10/10/2021 12:40 PM Signed OSH NI referral from Shanthi Galvan PA-C, [facility], [place], [place] DX: PTSD, depression, anxiety RFV: psychiatry [...] Reason for Visit: Received Outside Medical Records [2810] Cmt: External referral to Psychiatry Prescriptions as [...] Status:Closed by PATY CASTORENA on 10/10/21 Normal [facility] XR HAND RIGHT (MIN 3 VIEWS)o n [...] Interpreted by: Kristen Henry DO Signed by: Kristne Henry DO 09/23/21 Final result Normal [facility] CBC With Platelet and Differ entialon 09-08-2021 Abs Imm Granulocytes 0.0 K/uL Normal [facility] Comment on above: Performed By: #### T ROP #### [facility] [address] [place] [address] Basophils (Bld) [#/Vol] 0.1 10*3/uL Normal 0.0-0.1 [facility] Comment on above: Performed By: #### T ROP #### [facility] [address] [place] [address] Basophils/100 WBC (Bld) 1.3 % Critically high 0.2-1.2 [facility] Comment on above: Performed By: #### T ROP #### [facility] [address] [place] [address] Eosinophils (Bld) [#/Vol] 0.4 10*3/uL Normal 0.0-0.5 [facility] Comment on above: Performed By: #### T ROP #### [facility] [address] [place] [address] Eosinophils/100 WBC (Bld) 4.7 % Normal 0.8-7.0 [facility] Comment on above: Performed By: #### T ROP #### [facility] [address] [place] [address] Erythrocyte distribution width (RBC) [Ratio] 14.0 % Normal 11.6-14.4 [facility] Comment on above: Performed By: #### T ROP #### [facility] [address] [place] [address] Hematocrit (Bld) [Volume fraction] 47.7 % Normal 42.0-52.0 [facility] Comment on above: Performed By: #### T ROP #### [facility] [address] [place] [address] Hemoglobin (Bld) [Mass/Vol] 16.3 g/dL Normal 13.7-17.5 [facility] Comment on above: Performed By: #### T ROP #### [facility] [address] [place] [address] Imm Granulocytes 0.3 % Normal [facility] Comment on above: Performed By: #### T ROP #### [facility] [address] [place] [address] Lymphocytes (Bld) [#/Vol] 2.3 10*3/uL Normal 1.3-3.6 [facility] Comment on above: Performed By: #### T ROP #### [facility] [address] [place] [address] Lymphocytes/100 WBC (Bld) 24.4 % Normal [facility] Comment on above: Performed By: #### T ROP #### [facility] [address] [place] [address] MCH (RBC) [Entitic mass] 32.1 pg Normal 25.7-32.2 [facility] Comment on above: Performed By: #### T ROP #### [facility] [address] [place] [address] MCHC 34.2 % Normal 32.3-36.5 [facility] Comment on above: Performed By: #### T ROP #### [facility] [address] [place] [address] MCV (RBC) [Entitic vol] 93.9 fL Critically high 79.0-92.2 [facility] Comment on above: Performed By: #### T ROP #### [facility] [address] [place] [address] Monocytes (Bld) [#/Vol] 0.7 10*3/uL Normal 0.3-0.8 [facility] Comment on above: Performed By: #### T ROP #### [facility] [address] [place] [address] Monocytes/100 WBC (Bld) 7.4 % Normal 5.3-12.2 [facility] Comment on above: Performed By: #### T ROP #### [facility] [address] [place] [address] Neutrophils (Bld) [#/Vol] 5.7 10*3/uL Critically high 1.8-5.4 [facility] Comment on above: Performed By: #### T ROP #### [facility] [address] [place] [address] Neutrophils/100 WBC (Bld) 61.9 % Normal 34.0-67.9 [facility] Comment on above: Performed By: #### T ROP #### [facility] [address] [place] [address] Platelets (Bld) [#/Vol] 217 10*3/uL Normal 163-337 [facility] Comment on above: Performed By: #### T ROP #### [facility] [address] [place] [address] RBC (Bld) [#/Vol] 5.08 10*6/uL Normal 4.63-6.08 [facility] Comment on above: Performed By: #### T ROP #### [facility] [address] [place] [address] WBC (Bld) [#/Vol] 9.2 10*3/uL Critically high 4.2-9.0 [facility] Comment on above: Performed By: #### T ROP #### [facility] [address] [place] [address] CBC with Auto Differentialon 09-08-2021 Basophils (Bld) [#/Vol] 0.1 10*3/uL 0.0 - 0.1 K/uL [facility] Basophils/100 WBC (Bld) 1.3 % High 0.2 - 1.2 % [facility] Eosinophils (Bld) [#/Vol] 0.4 10*3/uL 0.0 - 0.5 K/uL [facility] Eosinophils/100 WBC (Bld) 4.7 % 0.8 - 7.0 % [facility] Hematocrit (Bld) [Volume fraction] 47.7 % 42.0 - 52.0 % [facility] Hemoglobin.gastrointe stinal spec 1 Ql (Stl) 16.3 g/dL 13.7 - 17.5 g/dL [facility] Immature granulocytes (Bld) [#/Vol] 0.0 10*3/uL [facility] Immature granulocytes/100 WBC (Bld) 0.3 % [facility] Interpretation and review of laboratory results Abnormal [facility] Lymphocytes (Bld) [#/Vol] 2.3 10*3/uL 1.3 - 3.6 K/uL [facility] Lymphocytes/100 WBC (Bld) 24.4 % [facility] MCH (RBC) [Entitic mass] 32.1 pg 25.7 - 32.[address] [facility] MCHC (RBC) [Mass/Vol] 34.2 % 32.3 - 36.5 % [facility] MCV (RBC) [Entitic vol] 93.9 fL High 79.0 - 92.[address] [facility] Monocytes (Bld) [#/Vol] 0.7 10*3/uL 0.3 - 0.8 K/uL [facility] Monocytes/100 WBC (Bld) 7.4 % 5.3 - 12.2 % [facility] Neutrophils Absolute 5.7 K/uL High 1.8 - 5 .4 K/uL [facility] Neutrophils/100 WBC (Bld) 61.9 % 34.0 - 67.9 % [facility] Platelet distribution width (Bld) [Ratio] 14.0 % 11.6 - 14.4 % [facility] Platelets (Bld) [#/Vol] 217 10*3/uL 163 - 337 K/uL [facility] RBC (Bld) [#/Vol] 5.08 10*6/uL [facility] WBC (Bld) [#/Vol] 9.2 10*3/uL High 4.2 - 9.0 K/uL [facility] Comprehensive Metabolic Pane valentino 09-08-2021 Albumin [Mass/Vol] 4.4 g/dL Normal 3.5-4.6 [facility] Comment on above: Performed By: #### C MP #### [facility] [address] [place] [address] ALP [Catalytic activity/Vol] 133 U/L Critically high 35-104 [facility] Comment on above: Performed By: #### C MP #### [facility] [address] [place] [address] ALT [Catalytic activity/Vol] 17 U/L Normal 0-41 [facility] Comment on above: Performed By: #### C MP #### [facility] [address] [place] [address] Anion gap [Moles/Vol] 13 mmol/L Normal 9-15 [facility] Comment on above: Performed By: #### C MP #### [facility] [address] [place] [address] AST [Catalytic activity/Vol] 26 U/L Normal 0-40 [facility] Comment on above: Result Comment: Spec imen hemolysis has exceeded the interference as defined by Yuliya. Value may be falsely increased. Suggest recollection if clinically indicated. Performed By: #### C MP #### [facility] [address] [place] [address] Bilirubin [Mass/Vol] 1.0 mg/dL Critically high 0.2-0.7 [facility] Comment on above: Performed By: #### C MP #### [facility] [address] [place] [address] Calcium [Mass/Vol] 9.3 mg/dL Normal 8.5-9.9 [facility] Comment on above: Performed By: #### C MP #### [facility] [address] [place] [address] Chloride [Moles/Vol] 101 mmol/L Normal 95-107 [facility] Comment on above: Performed By: #### C MP #### [facility] [address] [place] [address] CO2 [Moles/Vol] 25 mmol/L Normal 20-31 [facility] Comment on above: Performed By: #### C MP #### [facility] [address] [place] [address] Creatinine [Mass/Vol] 0.58 mg/dL Low 0.70-1.20 [facility] Comment on above: Performed By: #### C MP #### [facility] [address] [place] [address] GFR >60.0 Normal >60 [facility] Comment on above: Result Comment: >60 mL/min/1.73m2 EGFR, calc. for ages 18 and older using the MDRD formula (not corrected for weight), is valid for stable renal function. Performed By: #### C MP #### [facility] [address] [place] [address] GFR/1.73 sq M.predicted among blacks MDRD (S/P/Bld) [Vol rate/Area] mL/min/{1.73_m2} Normal >60 [facility] Comment on above: Result Comment: >60 mL/min/1.73m2 EGFR, calc. for ages 18 and older using the MDRD formula (not corrected for weight), is valid for stable renal function. Performed By: #### C MP #### [facility] [address] [place] [address] Globulin (S) [Mass/Vol] 3.3 g/dL Normal 2.3-3.5 [facility] Comment on above: Performed By: #### C MP #### [facility] [address] [place] [address] Glucose [Mass/Vol] 135 mg/dL Critically high 70-99 [facility] Comment on above: Performed By: #### C MP #### [facility] [address] [place] [address] Potassium [Moles/Vol] 4.1 mmol/L Normal 3.4-4.9 [facility] Comment on above: Performed By: #### C MP #### [facility] [address] [place] [address] Protein [Mass/Vol] 7.7 g/dL Normal 6.3-8.0 [facility] Comment on above: Performed By: #### C MP #### [facility] [address] [place] [address] Sodium [Moles/Vol] 139 mmol/L Normal 135-144 [facility] Comment on above: Performed By: #### C MP #### [facility] [address] [place] [address] Urea nitrogen [Mass/Vol] 7 mg/dL Normal 6-20 [facility] Comment on above: Performed By: #### C MP #### [facility] [address] [place] [address] Albumin [Mass/Vol] 4.4 g/dL 3.5 - 4.6 g/dL [facility] ALP (Bld) [Catalytic activity/Vol] 133 U/L High 35 - 104 U/L [facility] ALT [Catalytic activity/Vol] 17 U/L 0 - 41 U/L [facility] [employer] Anion gap [Moles/Vol] 13 mmol/L [facility] AST [Catalytic activity/Vol] 26 U/L 0 - 40 U/L [facility] Comment on above: Specimen hemolysis h as exceeded the interference as defined by Yuliya. Value may be falsely increased. Suggest recollection if clinically indicated. Bilirubin [Mass/Vol] 1.0 mg/dL High 0.2 - 0 .7 mg/dL [facility] [employer] Calcium [Mass/Vol] 9.3 mg/dL 8.5 - 9.9 mg/dL [facility] [employer] Chloride [Moles/Vol] 101 mmol/L [facility] [employer] CO2 [Moles/Vol] 25 mmol/L [facility] [employer] Creatinine [Mass/Vol] 0.58 mg/dL Low 0.70 - 1.20 mg/dL [facility] [employer] Free PSA/Total PSA [Mass fraction] 7.7 g/dL 6.3 - 8.0 g/dL [facility] [employer] GFR >60.0 >60 [facility] Comment on above: >60 mL/min/1.73m2 EG FR, calc. for ages 18 and older using the MDRD formula (not corrected for weight), is valid for stable renal function. GFR Non- >60.[address] >[address] [facility] Comment on above: >60 mL/min/1.73m2 EG FR, calc. for ages 18 and older using the MDRD formula (not corrected for weight), is valid for stable renal function. Globulin (S) [Mass/Vol] 3.3 g/dL 2.3 - 3.5 g/dL [facility] Glucose [Mass/Vol] 135 mg/dL High 70 - 99 mg/dL [facility] Interpretation and review of laboratory results Abnormal [facility] Potassium [Moles/Vol] 4.1 mmol/L [facility] Sodium [Moles/Vol] 139 mmol/L [facility] Urea nitrogen (BldV) [Mass/Vol] 7 mg/dL 6 - 20 mg/dL [facility] Troponinon 09-08-2021 Troponin I.cardiac [Mass/Vol] ng/mL Normal 0.000-0.01 [facility] Comment on above: Result Comment: Meth odology by Troponin T. Performed By: #### T ROP #### [facility] [address] [facility] [id number] [phone] Troponin I.cardiac [Mass/Vol] ng/mL 0.000 - 0.010 ng/mL [facility] Comment on above: Methodology by Ambrosio Thorne. [facility] XR CHEST PORTABLEon 09-09-19 XR CHEST PORTABLE EXAMINATION: CHEST P ORTABLE [...] Jd Littlejohn MD 09/08/21 Final result Normal [facility] NO ACUTE ACTIVE CARDIOPULMONARY PROCESS [facility] RADIOLOGY EXAMINATION: CHEST P ORTABLE VIEW CLINICAL HISTORY: Midsternal chest pain COMPARISONS: May 14, 2021 2240 hours FINDINGS: 2 views of the chest is submitted. The cardiac silhouette is of normal size configuration. Pulmonary vascular unremarkable. Right sided trachea. No focal infiltrates. No Pneumothoraces. [facility] RADIOLOGY Jd Littlejohn MD - 09/08/2021 EXAMINATION: CHEST PORTABLE VIEW CLINICAL HISTORY: Midsternal chest pain COMPARISONS: May 14, 2021 2240 hours FINDINGS: 2 views of the chest is submitted. The cardiac silhouette is of normal size configuration. Pulmonary vascular unremarkable. Right sided trachea. No focal infiltrates. No Pneumothoraces. IMPRESSION: NO ACUTE ACTIVE CARDIOPULMONARY PROCESS [employer] Phone: Radiology Study observation (narrative) [employer] Phone: XR CHEST PORTABLEOrdered By: Jd Littlejohn on 09-08-2021 [employer] Phone: Bacterial susceptibility montero el by [facility] 06-19-2021 Bacterial susceptibility panel ARGENIS (Isol) ORDER#: [id number] ORDERED BY: KARUNA SHIN SOURCE: Abscess COLLECTED: [...] of choice: Penicillin G, Clindamycin or Metronidazole. [facility] Comment on above: Performed By: #### T ROP #### [facility] [address] [facility] [id number] Culture, Wound Aerobic, Anae robic, and Gram Stainon 06-19-2021 Culture, Wound Aerobic, Anaerobic, and Gram Stain ORDER#: [id number] ORDERED BY: KARUNA SHIN SOURCE: Abscess COLLECTED: 06/19/21 13:58 ANTIBIOTICS AT DEL[facility].: RECEIVED : 06/19/21 15:07 Gram Stain Direct FINAL 06/20/21 09:51 Moderate WBC's No epithelial cells Few Gram positive cocci in clusters-resembling Staph Rare Gram negative rods Culture, Wound Aerobic INTERIM 06/21/21 11:31 Light growth Staphylococcus species ID and sensitivity to follow Culture, Anaerobic PRELIM 06/21/21 11:31 Culture in progress [facility] Comment on above: Performed By: #### C XWAN #### [facility] [address] [facility] [id number] US SCROTUM AND TESTICLESon 0 06-18-2021 US SCROTUM AND TESTICLES EXAMINATION: SCROTAL ULTRASOUND [...] Ramin Conteh MD 06/18/21 Final result Normal [facility] Likely abscess within the left scrotal wall at the area of lump measuring around 2.0 cm. Otherwise unremarkable sonographic appearance of the scrotal contents, with normal arterial and venous flow to both testes. [facility] RADIOLOGY EXAMINATION: SCROTAL ULTRASOUND WITH DOPPLER IMAGING [...] with surrounding increased vascularity, likely representing abscess. [facility] RADIOLOGY Ramin Conteh M D - 06/18/2021 [...] arterial and venous flow to both testes. [employer] Phone: Radiology Study observation (narrative) [employer] Phone: US SCROTUM AND TESTICLESOrde red By: Ramin Conteh on 06-18-2021 [employer] Phone: CBC With Platelet and Differ entialon 05-15-2021 Abs Imm Granulocytes 0.1 K/uL Normal [facility] Comment on above: Performed By: #### C BCWD #### [facility] [address] [place] [address] Basophils (Bld) [#/Vol] 0.2 10*3/uL Critically high 0.0-0.1 [facility] Comment on above: Performed By: #### C BCWD #### [facility] [address] [place] [address] Basophils/100 WBC (Bld) 1.0 % Normal 0.2-1.2 [facility] Comment on above: Performed By: #### C BCWD #### [facility] [address] [place] [address] Eosinophils (Bld) [#/Vol] 0.6 10*3/uL Critically high 0.0-0.5 [facility] Comment on above: Performed By: #### C BCWD #### [facility] [address] [place] [address] Eosinophils/100 WBC (Bld) 4.0 % Normal 0.8-7.0 [facility] Comment on above: Performed By: #### C BCWD #### [facility] [address] [place] [address] Erythrocyte distribution width (RBC) [Ratio] 15.9 % Critically high 11.6-14.4 [facility] Comment on above: Performed By: #### C BCWD #### [facility] [address] [place] [address] Hematocrit (Bld) [Volume fraction] 47.2 % Normal 42.0-52.0 [facility] Comment on above: Performed By: #### C BCWD #### [facility] [address] [place] [address] Hemoglobin (Bld) [Mass/Vol] 15.9 g/dL Normal 13.7-17.5 [facility] Comment on above: Performed By: #### C BCWD #### [facility] [address] [place] [address] Imm Granulocytes 0.3 % Normal [facility] Comment on above: Performed By: #### C BCWD #### [facility] [address] [place] [address] Lymphocytes (Bld) [#/Vol] 4.5 10*3/uL Critically high 1.3-3.6 [facility] Comment on above: Performed By: #### C BCWD #### [facility] [address] [place] [address] Lymphocytes/100 WBC (Bld) 30.6 % Normal [facility] Comment on above: Performed By: #### C BCWD #### [facility] [address] [place] [address] MCH (RBC) [Entitic mass] 30.8 pg Normal 25.7-32.2 [facility] Comment on above: Performed By: #### C BCWD #### [facility] [address] [place] [address] MCHC 33.7 % Normal 32.3-36.5 [facility] Comment on above: Performed By: #### C BCWD #### [facility] [address] [place] [address] MCV (RBC) [Entitic vol] 91.5 fL Normal 79.0-92.2 [facility] Comment on above: Performed By: #### C BCWD #### [facility] [address] [place] [address] Monocytes (Bld) [#/Vol] 0.8 10*3/uL Normal 0.3-0.8 [facility] Comment on above: Performed By: #### C BCWD #### [facility] [address] [place] [address] Monocytes/100 WBC (Bld) 5.5 % Normal 5.3-12.2 [facility] Comment on above: Performed By: #### C BCWD #### [facility] [address] [place] [address] Neutrophils (Bld) [#/Vol] 8.6 10*3/uL Critically high 1.8-5.4 [facility] Comment on above: Performed By: #### C BCWD #### [facility] [address] [place] [address] Neutrophils/100 WBC (Bld) 58.6 % Normal 34.0-67.9 [facility] Comment on above: Performed By: #### C BCWD #### [facility] [address] [place] [address] Platelets (Bld) [#/Vol] 227 10*3/uL Normal 163-337 [facility] Comment on above: Performed By: #### C BCWD #### [facility] [address] [place] [address] RBC (Bld) [#/Vol] 5.16 10*6/uL Normal 4.63-6.08 [facility] Comment on above: Performed By: #### C BCWD #### [facility] [address] [facility] [address] WBC (Bld) [#/Vol] 14.6 10*3/uL Critically high 4.2-9.0 [facility] Comment on above: Performed By: #### C BCWD #### [facility] [address] [facility] [address] COVID-19on 05-15-2021 SARS-CoV-2 (COVID-19) RNA SHANICE+probe Ql (Unsp spec) Not detected Normal Not Detect [facility] Comment on above: Result Comment: Julian barreto NAAT: Negative results should be treated as [...] authorized laboratories. Fact sheet for Healthcare Providers: https://www.fda.gov/media/677600/download Fact sheet for Patients: https://www.fda.gov/media/135698/download METHODOLOGY: Isothermal Nucleic Acid Amplification Performed By: #### T ROP #### [facility] [address] [place] [address] Comprehensive Metabolic Pane valentino 05-15-2021 Albumin [Mass/Vol] 3.8 g/dL Normal 3.5-4.6 [facility] Comment on above: Performed By: #### C MP #### [facility] [address] [place] [address] ALP [Catalytic activity/Vol] 110 U/L Critically high 35-104 [facility] Comment on above: Performed By: #### C MP #### [facility] [address] [place] [address] ALT [Catalytic activity/Vol] 15 U/L Normal 0-41 [facility] Comment on above: Performed By: #### C MP #### [facility] [address] [place] [address] Anion gap [Moles/Vol] 15 mmol/L Normal 9-15 [facility] Comment on above: Performed By: #### C MP #### [facility] [address] [place] [address] AST [Catalytic activity/Vol] 27 U/L Normal 0-40 [facility] Comment on above: Result Comment: Spec imen hemolysis has exceeded the interference as defined by Yuliya. Value may be falsely increased. Suggest recollection if clinically indicated. Performed By: #### C MP #### [facility] [address] [place] [address] Bilirubin [Mass/Vol] 0.4 mg/dL Normal 0.2-0.7 [facility] Comment on above: Performed By: #### C MP #### [facility] [address] [place] [address] Calcium [Mass/Vol] 8.8 mg/dL Normal 8.5-9.9 [facility] Comment on above: Performed By: #### C MP #### [facility] [address] [place] [address] Chloride [Moles/Vol] 105 mmol/L Normal 95-107 [facility] Comment on above: Performed By: #### C MP #### [facility] [address] [place] [address] CO2 [Moles/Vol] 20 mmol/L Normal 20-31 [facility] Comment on above: Performed By: #### C MP #### [facility] [address] [place] [address] Creatinine [Mass/Vol] 0.79 mg/dL Normal 0.70-1.20 [facility] Comment on above: Performed By: #### C MP #### [facility] [address] [place] [address] GFR >60.0 Normal >60 [facility] Comment on above: Result Comment: >60 mL/min/1.73m2 EGFR, calc. for ages 18 and older using the MDRD formula (not corrected for weight), is valid for stable renal function. Performed By: #### C MP #### [facility] [address] [place] [address] GFR/1.73 sq M.predicted among blacks MDRD (S/P/Bld) [Vol rate/Area] mL/min/{1.73_m2} Normal >60 [facility] Comment on above: Result Comment: >60 mL/min/1.73m2 EGFR, calc. for ages 18 and older using the MDRD formula (not corrected for weight), is valid for stable renal function. Performed By: #### C MP #### [facility] [address] [place] [address] Globulin (S) [Mass/Vol] 2.6 g/dL Normal 2.3-3.5 [facility] Comment on above: Performed By: #### C MP #### [facility] [address] [place] [address] Glucose [Mass/Vol] 93 mg/dL Normal 70-99 [facility] Comment on above: Performed By: #### C MP #### [facility] [address] [place] [address] Potassium [Moles/Vol] 4.1 mmol/L Normal 3.4-4.9 [facility] Comment on above: Performed By: #### C MP #### [facility] [address] [place] [address] Protein [Mass/Vol] 6.4 g/dL Normal 6.3-8.0 [facility] Comment on above: Performed By: #### C MP #### [facility] [address] [place] [address] Sodium [Moles/Vol] 140 mmol/L Normal 135-144 [facility] Comment on above: Performed By: #### C MP #### [facility] [address] [place] [address] Urea nitrogen [Mass/Vol] 10 mg/dL Normal 6-20 [facility] Comment on above: Performed By: #### C MP #### [facility] [address] [place] [address] Lipaseon 05-15-2021 Lipase [Catalytic activity/Vol] 32 U/L Normal 12-95 [facility] Comment on above: Performed By: #### L IPAS #### [facility] [address] [place] [address] Troponinon 05-15-2021 Troponin I.cardiac [Mass/Vol] ng/mL Normal 0.000-0.01 [facility] Comment on above: Result Comment: Meth odology by Troponin T. Performed By: #### T ROP #### [facility] [address] [place] [address] Troponin I.cardiac [Mass/Vol] ng/mL Normal 0.000-0.01 [facility] Comment on above: Result Comment: Meth odology by Troponin T. Performed By: #### T ROP ####[facility] [place] [phone] UR Drug Screen Rapidon 05-15 Drug Screen Comment see below Normal [facility] Comment on above: Result Comment: This method is a screening test to detect only these drug classes as part of a medical workup. Confirmatory testing by another method should be ordered if clinically indicated. Performed By: #### C XWAN #### [facility] [address] [place] [address] UR Amphetamines Rapid Screen Negative Normal Negative < [facility] Comment on above: Result Comment: Effe ctive: 11/28/17 Methodology and/or Reference Range-Cutoff has changed. Performed By: #### C XWAN #### [facility] [address] [place] [address] UR Barbiturates Rapid Screen Negative Normal Negative < [facility] Comment on above: Result Comment: Effe ctive: 11/28/17 Methodology and/or Reference Range-Cutoff has changed. Performed By: #### C XWAN #### [facility] [address] [place] [address] UR Benzo Rapid Screen Positive Abnormal Negative < [facility] Comment on above: Result Comment: Effe ctive: 11/28/17 Methodology and/or Reference Range-Cutoff has changed. Performed By: #### C XWAN #### [facility] [address] [place] [address] UR Cannabinoids Rapid Screen Positive Abnormal Negative < [facility] Comment on above: Performed By: #### C XWAN #### [facility] [address] [place] [address] UR Cocaine Rapid Screen Negative Normal Negative < [facility] Comment on above: Result Comment: Effe ctive: 11/28/17 Methodology and/or Reference Range-Cutoff has changed. Performed By: #### C XWAN #### [facility] [address] [place] [address] UR Opiates Rapid Screen Positive Abnormal Negative < [facility] Comment on above: Result Comment: Effe ctive: 11/28/17 Methodology and/or Reference Range-Cutoff has changed. Performed By: #### C XWAN #### [facility] [address] [place] [address] UR PCP Rapid Screen Negative Normal Negative < [facility] Comment on above: Performed By: #### C XWAN #### [facility] [address] [place] [address] XR CHEST PORTABLEon 05-15-20 21 XR CHEST PORTABLE Exam: XR CHEST PAULINA [...] Johnie Caballero DO 05/15/21 Final result Normal [facility] APTTOrdered By: Pj faith on 02-24-2021 aPTT Coag (Bld) [Time] 30 s [employer] Phone: Comment on above: Effective 03/19/2020: Heparin Therapeutic Range: 64.0 98.0 seconds. Brain Natriuretic PeptideOrd ered By: Pj Werner on 02-24-2021 Natriuretic peptide B (Bld) [Mass/Vol] 55 pg/mL [employer] Phone: Comment on above: NT-pro BNP ACUTE [...] analysis of 1256 patients. Heart Journal. 2006;27:330-337 [employer] Phone: CBC Auto DifferentialOrdered By: Pj Werner on 02-24-2021 Basophils (Bld) [#/Vol] 0.1 10*3/uL 0.0 - 0.1 K/uL [employer] Phone: Basophils/100 WBC (Bld) 1.4 % High 0.2 - 1.2 % [employer] Phone: Eosinophils (Bld) [#/Vol] 0.5 10*3/uL 0.0 - 0.5 K/uL [employer] Phone: Eosinophils/100 WBC (Bld) 5.8 % 0.8 - 7.0 % [employer] Phone: Hematocrit (Bld) [Volume fraction] 43.7 % 42.0 - 52.0 % [employer] Phone: Hemoglobin.gastrointe stinal spec 1 Ql (Stl) 14.8 g/dL 13.7 - 17.5 g/dL [employer] Phone: Immature granulocytes (Bld) [#/Vol] 0.0 10*3/uL [employer] Phone: Immature granulocytes/100 WBC (Bld) 0.4 % [employer] Phone: Interpretation and review of laboratory results Abnormal [employer] Phone: Lymphocytes (Bld) [#/Vol] 2.0 10*3/uL 1.3 - 3.6 K/uL [employer] Phone: Lymphocytes/100 WBC (Bld) 25.8 % [employer] Phone: MCH (RBC) [Entitic mass] 30.3 pg 25.7 - 32.2 pg [employer] Phone: MCHC (RBC) [Mass/Vol] 33.9 % 32.3 - 36.5 % [employer] Phone: MCV (RBC) [Entitic vol] 89.5 fL 79.0 - 92.2 fL [employer] Phone: Monocytes (Bld) [#/Vol] 0.6 10*3/uL 0.3 - 0.8 K/uL [employer] Phone: Monocytes/100 WBC (Bld) 7.1 % 5.3 - 12.2 % [employer] Phone: Neutrophils Absolute 4.7 K/uL 1.8 - 5 .4 K/uL [employer] Phone: Neutrophils/100 WBC (Bld) 59.5 % 34.0 - 67.9 % [employer] Phone: Platelet distribution width (Bld) [Ratio] 14.6 % High 11.6 - 14.4 % [employer] Phone: Platelets (Bld) [#/Vol] 191 10*3/uL 163 - 337 K/uL [employer] Phone: RBC (Bld) [#/Vol] 4.88 10*6/uL [employer] Phone: SLIDE REVIEW see below [employer] Phone: Comment on above: Slide review agrees with reported results WBC (Bld) [#/Vol] 7.8 10*3/uL 4.2 - 9.0 K/uL [employer] Phone: [employer] Phone: COVID-19, RapidOrdered By: Anita Werner on 02-24-2021 SARS-CoV-2 (COVID-19) RNA SHANICE+probe Ql (Unsp spec) Not detected Not Detected [employer] Phone: Comment on above: Rapid NAAT: Negative [...] authorized laboratories. Fact sheet for Healthcare Providers: https://www.fda.gov/media/419576/download Fact sheet for Patients: https://www.fda.gov/media/504590/download METHODOLOGY: Isothermal Nucleic Acid Amplification [employer] Phone: CTA Chest W WO (PE study)Ord [...] dose to as low as reasonably achievable. [employer] Phone: HISTORY: ELIJAH TEJEDA is a Male [...] spine. No destructive bony lesions are visualized.. [employer] Phone: Anderson, Chpo Incoming R adiant Results From [email or web address] - 02/24/2021 8:32 AM EDT HISTORY: ELIJAH [...] dose to as low as reasonably achievable. [employer] Phone: [employer] Phone: Comprehensive Metabolic Pane lOrdered By: Pj Werner on 02-24-2021 Albumin [Mass/Vol] 3.8 g/dL 3.5 - 4.6 g/dL [employer] Phone: ALP (Bld) [Catalytic activity/Vol] 119 U/L High 35 - 104 [facility]L [facility] Phone: ALT [Catalytic activity/Vol] 7 U/L 0 - 41 U/L [facility] Phone: Anion gap [Moles/Vol] 12 mmol/L [facility] Phone: AST [Catalytic activity/Vol] 17 U/L 0 - 40 U/L [facility] Phone: Bilirubin [Mass/Vol] 0.6 mg/dL 0.2 - 0 .7 mg/dL [facility] Phone: Calcium [Mass/Vol] 9.0 mg/dL 8.5 - 9.9 mg/dL [employer] Phone: Chloride [Moles/Vol] 106 mmol/L [employer] Phone: CO2 [Moles/Vol] 24 mmol/L [facility] Phone: Creatinine [Mass/Vol] 0.7 mg/dL 0.70 - 1.20 mg/dL [employer] Phone: Free PSA/Total PSA [Mass fraction] 6.5 g/dL 6.3 - 8.0 g/dL [employer] Phone: GFR >60.0 >60 [employer] Phone: Comment on above: >60 mL/min/1.73m2 EG FR, calc. for ages 18 and older using the MDRD formula (not corrected for weight), is valid for stable renal function. GFR Non- >60.0 >60 [employer] Phone: Comment on above: >60 mL/min/1.73m2 EG FR, calc. for ages 18 and older using the MDRD formula (not corrected for weight), is valid for stable renal function. Globulin (S) [Mass/Vol] 2.7 g/dL 2.3 - 3.5 g/dL [employer] Phone: Glucose [Mass/Vol] 112 mg/dL High 70 - 99 mg/dL [employer] Phone: Interpretation and review of laboratory results Abnormal [employer] Phone: Potassium [Moles/Vol] 3.9 mmol/L [facility] Phone: Sodium [Moles/Vol] 142 mmol/L [employer] Phone: Urea nitrogen (BldV) [Mass/Vol] 9 mg/dL 6 - 20 mg/dL [employer] Phone: MagnesiumOrdered By: Pj Becerril on 02-24-2021 Magnesium [Mass/Vol] 1.8 mg/dL 1.7 - 2 .4 mg/dL [employer] Phone: No Panel InformationOrdered By: Pj Werner on 02-24-2021 [employer] Phone: [employer] Phone: Protime-INROrdered By: Pj Werner on 02-24-2021 INR Coag (Bld) [Relative time] 1.0 {INR} [employer] Phone: PT Coag (PPP) [Time] 12.8 s [employer] Phone: TroponinOrdered By: Pj Talbot on 02-24-2021 Troponin I.cardiac [Mass/Vol] ng/mL 0.000 - 0.010 ng/mL [employer] Phone: Comment on above: Methodology by Ambrosio Cervantes [employer] Phone: COVID-19, RapidOrdered By: Randy Shin on 10-24-2020 SARS-CoV-2 (COVID-19) RNA SHANICE+probe Ql (Unsp spec) Not detected Not Detected [employer] Phone: Comment on above: Rapid NAAT: Negative [...] authorized laboratories. Fact sheet for Healthcare Providers: https://www.fda.gov/media/528587/download Fact sheet for Patients: https://www.fda.gov/media/873747/download METHODOLOGY: Isothermal Nucleic Acid Amplification [employer] Phone: Rapid Strep ScreenOrdered By : Karuna Shin on 10-24-2020 Strep Grp A PCR Negative [employer] Phone: Comment on above: Negative for Strep A nucleic acid. [employer] Phone: AmylaseOrdered By: Karuna herrera on 10-15-2020 Amylase [Catalytic activity/Vol] 44 U/L 22 - 93 U/L [employer] Phone: CBC Auto DifferentialOrdered By: Karuna Shin on 10-15-2020 Basophils (Bld) [#/Vol] 0.1 10*3/uL 0.0 - 0.1 K/uL [employer] Phone: Basophils/100 WBC (Bld) 1.7 % High 0.2 - 1.2 % [employer] Phone: Eosinophils (Bld) [#/Vol] 0.2 10*3/uL 0.0 - 0.5 K/uL [employer] Phone: Eosinophils/100 WBC (Bld) 2.9 % 0.8 - 7.0 % [employer] Phone: Hematocrit (Bld) [Volume fraction] 46.6 % 42.0 - 52.0 % [employer] Phone: Hemoglobin.gastrointe stinal spec 1 Ql (Stl) 15.2 g/dL 13.7 - 17.5 g/dL [employer] Phone: Immature granulocytes (Bld) [#/Vol] 0.0 10*3/uL [employer] Phone: Immature granulocytes/100 WBC (Bld) 0.5 % [employer] Phone: Interpretation and review of laboratory results Abnormal [employer] Phone: Lymphocytes (Bld) [#/Vol] 2.0 10*3/uL 1.3 - 3.6 K/uL [employer] Phone: Lymphocytes/100 WBC (Bld) 25.0 % [employer] Phone: MCH (RBC) [Entitic mass] 29.7 pg 25.7 - 32.2 pg [employer] Phone: MCHC (RBC) [Mass/Vol] 32.6 % 32.3 - 36.5 % [employer] Phone: MCV (RBC) [Entitic vol] 91.0 fL 79.0 - 92.2 fL [employer] Phone: Monocytes (Bld) [#/Vol] 0.6 10*3/uL 0.3 - 0.8 K/uL [employer] Phone: Monocytes/100 WBC (Bld) 7.0 % 5.3 - 12.2 % [employer] Phone: Neutrophils Absolute 5.0 K/uL 1.8 - 5 .4 K/uL [employer] Phone: Neutrophils/100 WBC (Bld) 62.9 % 34.0 - 67.9 % [employer] Phone: Platelet distribution width (Bld) [Ratio] 13.0 % 11.6 - 14.4 % [employer] Phone: Platelets (Bld) [#/Vol] 227 10*3/uL 163 - 337 K/uL [employer] Phone: RBC (Bld) [#/Vol] 5.12 10*6/uL [employer] Phone: WBC (Bld) [#/Vol] 7.9 10*3/uL 4.2 - 9.0 K/uL [employer] Phone: [employer] Phone: Comprehensive Metabolic Pane lOrdered By: Karuna Shin on 10-15-2020 Albumin [Mass/Vol] 3.8 g/dL 3.5 - 4.6 g/dL [employer] Phone: ALP (Bld) [Catalytic activity/Vol] 98 U/L 35 - 104 U/L [employer] Phone: ALT [Catalytic activity/Vol] 13 U/L 0 - 41 U/L [employer] Phone: Anion gap [Moles/Vol] 9 mmol/L [facility] [employer] Phone: AST [Catalytic activity/Vol] 16 U/L 0 - 40 U/L [facility] [employer] Phone: Bilirubin [Mass/Vol] 0.7 mg/dL 0.2 - 0 .7 mg/dL [facility] [employer] Phone: Calcium [Mass/Vol] 8.5 mg/dL 8.5 - 9.9 mg/dL [facility] [employer] Phone: Chloride [Moles/Vol] 106 mmol/L [facility] [employer] [facility] Phone: CO2 [Moles/Vol] 24 mmol/L [facility] [employer] Phone: Creatinine [Mass/Vol] 0.77 mg/dL 0.70 - 1.20 mg/dL [facility] [employer] Phone: Free PSA/Total PSA [Mass fraction] 6.6 g/dL 6.3 - 8.0 g/dL [facility] Phone: GFR >60.0 >60 [employer] Phone: Comment on above: >60 mL/min/1.73m2 EG FR, calc. for ages 18 and older using the MDRD formula (not corrected for weight), is valid for stable renal function. GFR Non- >60.0 >60 [facility] Phone: Comment on above: >60 mL/min/1.73m2 EG FR, calc. for ages 18 and older using the MDRD formula (not corrected for weight), is valid for stable renal function. Globulin (S) [Mass/Vol] 2.8 g/dL 2.3 - 3.5 g/dL [facility] Phone: Glucose [Mass/Vol] 102 mg/dL High 70 - 99 mg/dL [facility] Phone: Interpretation and review of laboratory results Abnormal [facility] Phone: Potassium [Moles/Vol] 4.2 mmol/L [facility] [employer] Phone: Sodium [Moles/Vol] 139 mmol/L [facility] Phone: Urea nitrogen (BldV) [Mass/Vol] 8 mg/dL 6 - 20 mg/dL [employer] Phone: EKG 12 Lead - Chest PainOrde red By: Karuna Shin on 10-15-2020 Atrial Rate 65 BPM [employer] Phone: P [place] 23 degrees [employer] Phone: P-R Interval 138 ms [employer] Phone: Q-T Interval 420 ms [employer] Phone: QRS Duration 98 ms [employer] Phone: QTc Calculation (Bazett) 436 ms [employer] Phone: R [place] 17 degrees [employer] Phone: T [place] 36 degrees [employer] Phone: Ventricular Rate 65 BPM [employer] Phone: Normal sinus rhythm Normal ECG When compared with ECG of 20-FEB-2020 12:59, No significant change was found Confirmed by Marin Matos ([id number]) on 10/15/2020 9:13:16 AM [employer] Phone: Celia Barron Incoming R esults From [place] - 10/15/2020 9:13 AM EDT Normal sinus rhythm Normal ECG When compared with ECG of 20-FEB-2020 12:59, No significant change was found Confirmed by Marin Matos ([id number]) on 10/15/2020 9:13:16 AM [employer] Phone: [employer] Phone: LipaseOrdered By: Karuna abbott on 10-15-2020 Lipase [Catalytic activity/Vol] 24 U/L 12 - 95 U/L [employer] Phone: MagnesiumOrdered By: Karuna Shin on 10-15-2020 Magnesium [Mass/Vol] 1.8 mg/dL 1.7 - 2 .4 mg/dL [employer] Phone: No Panel InformationOrdered By: Karuna Shin on 10-15-2020 [employer] Phone: TroponinOrdered By: Karuna Shin on 10-15-2020 Troponin I.cardiac [Mass/Vol] ng/mL 0.000 - 0.010 ng/mL [employer] Phone: Comment on above: Methodology by Ambrosio Cervantes [employer] Phone: US GALLBLADDER RUQOrdered By : Karuna Shin on 10-15-2020 NEGATIVE RIGHT UPPER QUADRANT ULTRASOUND WITHOUT EVIDENCE OF CHOLELITHIASIS. [employer] Phone: EXAMINATION: US GALL BLADDER RUQ DATE [...] portion did not demonstrate any gross pathology. [employer] Phone: Anderson, Chpo Incoming R adiant Results From [email or web address] - 10/15/2020 10:08 AM EDT EXAMINATION: US [...] UPPER QUADRANT ULTRASOUND WITHOUT EVIDENCE OF CHOLELITHIASIS. [employer] Phone: [employer] Phone: POCT Glucoseon 08-07-2020 Glucose [Mass/Vol] 96 mg/dL [employer] Phone: Interpretation and review of laboratory results Normal [employer] Phone: QC OK? ok [employer] Phone: Brain Natriuretic Peptideon 02-20-2020 Natriuretic peptide B (Bld) [Mass/Vol] 191 pg/mL [place] Comment on above: NT-pro BNP ACUTE [...] [#/Vol] 0.2 10*3/uL 0 - 0.2 K/uL [place] Basophils/100 WBC (Bld) 2.2 % [place] Eosinophils (Bld) [#/Vol] 0.3 10*3/uL 0 - 0.7 K/uL [place] Eosinophils/100 WBC (Bld) 4.1 % [place] Erythrocyte distribution width (RBC) [Ratio] 13.8 % 11.5 - 14.5 % [place] Hematocrit (Bld) [Volume fraction] 42.1 % 42 - 52 % [place] Hemoglobin (Bld) [Mass/Vol] 14.2 g/dL 14 - 18 g/dL [place] Interpretation and review of laboratory results Abnormal [place] Lymphocytes (Bld) [#/Vol] 2.2 10*3/uL 1 - 4.8 K/uL [place] Lymphocytes/100 WBC (Bld) 29.0 % [place] MCH (RBC) [Entitic mass] 30.3 pg 27 - 31.3 pg [place] MCHC (RBC) [Mass/Vol] 33.7 % 33 - 37 % [place] MCV (RBC) [Entitic vol] 89.9 fL 80 - 100 fL [place] Monocytes (Bld) [#/Vol] 0.7 10*3/uL 0.2 - 0.8 K/uL [place] Monocytes/100 WBC (Bld) 9.8 % [place] Neutrophils Absolute 4.1 K/uL 1.4 - 6 .5 K/uL [place] Neutrophils/100 WBC (Bld) 54.9 % [place] Platelets (Bld) [#/Vol] 200 10*3/uL 130 - 400 K/uL [place] RBC (Bld) [#/Vol] 4.69 10*6/uL Low [place] WBC (Bld) [#/Vol] 7.5 10*3/uL 4.8 - 10.8 K/uL [place] Comprehensive Metabolic Pane valentino 02-20-2020 Albumin [Mass/Vol] 4.1 g/dL 3.5 - 4.6 g/dL [place] ALP [Catalytic activity/Vol] 93 U/L 35 - 104 U/L [place] ALT [Catalytic activity/Vol] 11 U/L 0 - 41 U/L [place] Anion gap [Moles/Vol] 11 mmol/L [place] AST [Catalytic activity/Vol] 20 U/L 0 - 40 U/L [place] Bilirubin Ql (U) 0.4 mg/dL 0.2 - 0.7 mg/dL [place] Calcium [Mass/Vol] 9.3 mg/dL 8.5 - 9.9 mg/dL [place] Chloride [Moles/Vol] 103 mmol/L [place] CO2 [Moles/Vol] 25 mmol/L [place] Creatinine [Mass/Vol] 0.91 mg/dL 0.7 - 1.2 mg/dL [place] GFR >60.0 >60 [place] Comment on above: >60 mL/min/1.73m2 EG FR, calc. for ages 18 and older using the MDRD formula (not corrected for weight), is valid for stable renal function. GFR Non- >60.0 >60 [place] Comment on above: >60 mL/min/1.73m2 EG FR, calc. for ages 18 and older using the MDRD formula (not corrected for weight), is valid for stable renal function. Globulin (S) [Mass/Vol] 2.8 g/dL 2.3 - 3.5 g/dL [place] Glucose [Mass/Vol] 93 mg/dL 70 - 99 mg/dL [place] Potassium [Moles/Vol] 4.5 mmol/L [place] Protein [Mass/Vol] 6.9 g/dL 6.3 - 8 g/dL [place] Sodium [Moles/Vol] 139 mmol/L [place] Urea nitrogen [Mass/Vol] 9 mg/dL 6 - 20 mg/dL [place] Ethanolon 02-20-2020 Ethanol Lvl <10 mg/dL [place] Ethanol percent Not indicated G/dL [place] Magnesiumon 02-20-2020 Magnesium [Mass/Vol] 2.0 mg/dL 1.7 - 2 .4 mg/dL [place] Troponinon 02-20-2020 Troponin I.cardiac [Mass/Vol] ng/mL 0 - 0.01 ng/mL [place] Comment on above: Methodology by Ambrosio Cervantes ALLIED HEALTHon 05-24-2019 ALLIED HEALTH HNO ID: [id number] Author: Kiya EastCtSTEVE Sue Service: ? Author Type: Clinical Foxing Painter Type: Allied Health Filed: 05/24/2019 12:47 PM [...] STEVE Joel May 24, 2019 12:47 PM Normal [facility] C-Reactive Proteinon 020 CRP [Mass/Vol] 0.1 mg/dL Normal <0.9 [facility] Comment on above: Performed By: #### C BCDIF, CMP, LIPA, MG1 #### [facility] [address] [place] [address] CBC and Differentialon 05-24 Abs Baso 0.12 k/uL High <0.11 [facility] Comment on above: Performed By: #### C BCDIF, CMP, LIPA, MG1 #### [facility] [address] [place] [address] Abs [place] 0.67 k/uL Normal <0.87 [facility] Comment on above: Performed By: #### C BCDIF, CMP, LIPA, MG1 #### [facility] [address] [place] [address] Abs Neut 4.40 k/uL Normal 1.45-7.50 [facility] Comment on above: Performed By: #### C BCDIF, CMP, LIPA, MG1 #### [facility] [address] [place], [place] [phone] Basophils/100 WBC (Bld) 1.7 % Normal [facility] Comment on above: Performed By: #### C BCDIF, CMP, LIPA, MG1 #### [facility] [address] [place] [address] Eosinophils (Bld) [#/Vol] 0.30 10*3/uL Normal <0.46 [facility] Comment on above: Performed By: #### C BCDIF, CMP, LIPA, MG1 #### [facility] [address] [place] [address] Eosinophils/100 WBC (Bld) 4.1 % Normal [facility] Comment on above: Performed By: #### C BCDIF, CMP, LIPA, MG1 #### [facility] [address] [place] [address] Erythrocyte distribution width (RBC) [Ratio] 13.8 % Normal 11.5-15.0 [facility] Comment on above: Performed By: #### C BCDIF, CMP, LIPA, MG1 #### [facility] [address] [place] [address] Hematocrit (Bld) [Volume fraction] 45.1 % Normal 39.0-51.0 [facility] Comment on above: Performed By: #### C BCDIF, CMP, LIPA, MG1 #### [facility] [address] [place] [address] Hemoglobin (Bld) [Mass/Vol] 14.9 g/dL Normal 13.0-17.0 [facility] Comment on above: Performed By: #### C BCDIF, CMP, LIPA, MG1 #### [facility] [address] [place] [address] Lymphocytes (Bld) [#/Vol] 1.75 10*3/uL Normal 1.00-4.00 [facility] Comment on above: Performed By: #### C BCDIF, CMP, LIPA, MG1 #### [facility] [address] [place] [address] Lymphocytes/100 WBC (Bld) 24.2 % Normal [facility] Comment on above: Performed By: #### C BCDIF, CMP, LIPA, MG1 #### [facility] [address] [place] [address] MCH (RBC) [Entitic mass] 30.7 pG Normal 26.0-34.0 [facility] Comment on above: Performed By: #### C BCDIF, CMP, LIPA, MG1 #### [facility] [address] [phone] MCHC (RBC) [Mass/Vol] 33.0 g/dL Normal 30.5-36.0 [facility] Comment on above: Performed By: #### C BCDIF, CMP, LIPA, MG1 #### [facility] [address] [place], [place] [phone] MCV (RBC) [Entitic vol] 92.8 fL Normal 80.0-100.0 [facility] Comment on above: Performed By: #### C BCDIF, CMP, LIPA, MG1 #### [facility] [address] [place], [place] [phone] Monocytes/100 WBC (Bld) 9.3 % Normal [facility] Comment on above: Performed By: #### C BCDIF, CMP, LIPA, MG1 #### [facility] [address] [place], [place] [phone] Neutrophils/100 WBC (Bld) 60.7 % Normal [facility] Comment on above: Performed By: #### C BCDIF, CMP, LIPA, MG1 #### [facility] [address] [place] [phone] Platelet mean volume (Bld) [Entitic vol] 12.3 fL Normal 9.0-12.7 [facility] Comment on above: Performed By: #### C BCDIF, CMP, LIPA, MG1 #### [facility] [address] [place] [address] Platelets (Bld) [#/Vol] 198 10*3/uL Normal 150-400 [facility] Comment on above: Performed By: #### C BCDIF, CMP, LIPA, MG1 #### [facility] [address] [place] [phone] RBC (Bld) [#/Vol] 4.86 10*6/uL Normal 4.20-6.00 [facility] Comment on above: Performed By: #### C BCDIF, CMP, LIPA, MG1 #### [facility] [address] [address] WBC (Bld) [#/Vol] 7.24 10*3/uL Normal 3.70-11.00 [facility] Comment on above: Performed By: #### C BCDIF, CMP, LIPA, MG1 #### [facility] [address] [address] Comp Metabolic Panelon 05-24 Albumin [Mass/Vol] 4.1 g/dL Normal 3.9-4.9 [facility] Comment on above: Performed By: #### C BCDIF, CMP, LIPA, MG1 #### [facility] [address] [address] ALP [Catalytic activity/Vol] 91 U/L Normal 38-113 [facility] Comment on above: Performed By: #### C BCDIF, CMP, LIPA, MG1 #### [facility] [address] [address] ALT [Catalytic activity/Vol] 9 U/L Low 10-54 [facility] Comment on above: Performed By: #### C BCDIF, CMP, LIPA, MG1 #### [facility] [address] [place] [address] Anion gap [Moles/Vol] 13 mmol/L Normal 9-18 [facility] Comment on above: Performed By: #### C BCDIF, CMP, LIPA, MG1 #### [facility] [address] [place] [address] AST [Catalytic activity/Vol] 15 U/L Normal 14-40 [facility] Comment on above: Performed By: #### C BCDIF, CMP, LIPA, MG1 #### [facility] [address] [place], [place] [phone] Bilirubin [Mass/Vol] 0.5 mg/dL Normal 0.2-1.3 [facility] Comment on above: Performed By: #### C BCDIF, CMP, LIPA, MG1 #### [facility] [address] Calcium [Mass/Vol] 9.4 mg/dL Normal 8.5-10.2 [facility] Comment on above: Performed By: #### C BCDIF, CMP, LIPA, MG1 #### [facility] [address] [facility] [phone] Chloride [Moles/Vol] 107 mmol/L High 97-105 [facility] Comment on above: Performed By: #### C BCDIF, CMP, LIPA, MG1 #### [facility] [address] [facility] [phone] CO2 [Moles/Vol] 24 mmol/L Normal 22-30 [facility] Comment on above: Performed By: #### C BCDIF, CMP, LIPA, MG1 #### [facility] [address] [facility] [phone] Creatinine [Mass/Vol] 0.78 mg/dL Normal 0.73-1.22 [facility] Comment on above: Performed By: #### C BCDIF, CMP, LIPA, MG1 #### [facility] [address] [facility] [phone] eGFR- Amer. >60 Normal [facility] Comment on above: Performed By: #### C BCDIF, CMP, LIPA, MG1 #### [facility] [address] [facility] [phone] GFR/1.73 sq M predicted among non-blacks MDRD (S/P/Bld) [Vol rate/Area] mL/min/{1.73_m2} Normal [facility] Comment on above: Result Comment: eGFR [...] #### C BCDIF, CMP, LIPA, MG1 #### [facility] [address] [facility] [phone] Glucose [Mass/Vol] 96 mg/dL Normal 74-99 [facility] Comment on above: Result Comment: The [place] Diabetes Association (ADA) provides guidance for cutoff [...] Standards of Medical Care in Diabetes 2016, [place] [employer]. Diabetes Care. 2016.39(Suppl 1). Performed By: #### C BCDIF, CMP, LIPA, MG1 #### [facility] [address] [place], [place] [phone] Potassium [Moles/Vol] 4.2 mmol/L Normal 3.7-5.1 [facility] Comment on above: Performed By: #### C BCDIF, CMP, LIPA, MG1 #### [facility] [address] [place], [place] [phone] Protein [Mass/Vol] 7.0 g/dL Normal 6.3-8.0 [facility] Comment on above: Performed By: #### C BCDIF, CMP, LIPA, MG1 #### [facility] [address] [place], [place] [phone] Sodium [Moles/Vol] 144 mmol/L Normal 136-144 [facility] Comment on above: Performed By: #### C BCDIF, CMP, LIPA, MG1 #### [facility] [address] [place], [place] [phone] Urea nitrogen [Mass/Vol] 8 mg/dL Low 9-24 [facility] Comment on above: Performed By: #### C BCDIF, CMP, LIPA, MG1 #### [facility] [address] [place], [place] [phone] ED NOTEon 05-24-2019 ED NOTE HNO ID: [id number] Author: Елена Weir RN Service: ? Author Type: Registered Nurse Type: ED Notes Filed: 05/24/2019 4:31 PM Note Text: IV was removed and patient is transporting self to [facility] ER for a transfer. He was given paper work. With . [facility] ED NOTE HNO ID: [id number] Author: Елена (Rn) YOLI Weir Service: ? Author Type: Registered Nurse Type: ED Notes Filed: 05/24/2019 12:33 PM Note Text: Patient to Xray with tech. [facility] ED NOTE HNO ID: [id number] Author: Mely (Rn) YOLI hWittington Service: ? Author Type: Registered Nurse Type: ED Notes Filed: 05/24/2019 11:47 AM Note Text: 04/14/[address] [facility], he cut the tip of his right middle finger off with a circular saw. Pt states it been getting more swollen and he has had fevers. He took tylenol this am around 929. Pt states before it was infected I was able to move my hand, now I can't and I can't even move my finger. [facility] ED PROV NOTEon 05-24-2019 ED PROV NOTE HNO ID: [id number] Author: Tona Ramirez MD Service: ? Author Type: Physician Type: ED Provider Notes Filed: 05/30/2019 11:30 AM Note Text: [facility] EM[facility] DEPARTMENT ENCOUnter Pt Name: Elijah Wylie Jr. Birthdate 1975 Date of evaluation: 05/24/2019 Provider: Kaiden Wayne MS, PACastilloC CHIEF COMPLAINT chief complaint Finger pain HISTORY [...] is improved by nothing in particular. His [place] pain medication and really did not touch [...] Osteomyelitis cannot be excluded by this exam. Sales And Distribution Clerk: TAO Transcribe Date/Time: May 24 2019 1:28P [...] No dislocation. IMPRESSION: Refer to the result. Sales And Distribution Clerk: TAO Transcribe Date/Time: May 24 2019 12:54P Dictated [...] surgeon. I spoke to Dr. Wyman at [facility] who requests that we transfer this patient immediately to [facility]. I spoke to Dr. Guzman at [facility] emergency room who accepted patient for [...] use disorder DISPOSITION/PLAN He is transferred to [facility] by private vehicle stable condition. PATIENT REFERRED TO: [place] [id number] Go to the ED immediately to be seen by the hand specialist's team for evaluation. DISCHARGE MEDICATIONS: New Prescriptions No medications on file (Please note: Portions of this note were completed with a voice recognition program. Efforts were made to edit the dictations but occasionally words and phrases are mis-transcribed.) Form [id number].J.[id number] (electronically signed) Emergency Medicine Provider Kaiden Wayne 05/24/19 1554 Attending Note I have personally performed a face to face assessment of the patient and have reviewed the PA/SUPERVISOR PASTE PLANT note. 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 On . Still feels the same. Exam : soft tissue swelling with tenderness but no erythema,fluctuance, induration, or drainage. Small eraser sized dry opening/scab. No streaking Assessment/Plan : Ddx; osteomyelitis, cellulitis, abscess, normal healing Labs unremarkable, xray ok, Pac d/w his surgeon who will see him at [facility] ED. IV vanc and zosyn given in ED and transferred to [facility] ED. Other additions or changes: None Signature: Tona Ramirez MD Date: 05/30/2019 Time: 11:26 AM Tona Ramirez MD 05/30/19 1130 [facility] Rapid PCR Assay FLUon 2019 Influenza A PCR Negative [facility] Comment on above: Performed By: #### C BCDIF, CMP, LIPA, MG1 #### [facility] [address] [place] [address] Influenza B PCR Negative [facility] Comment on above: Performed By: #### C BCDIF, CMP, LIPA, MG1 #### [facility] [address] [place] [address] Specimen source Nom (Unsp spec) Nasopharyngeal Swab [facility] Comment on above: Performed By: #### C BCDIF, CMP, LIPA, MG1 #### [facility] [address] [place] [address] XR DIGIT 3V FRONTAL/LAT/OBL RTon 05-24-2019 XR [...] Osteomyelitis cannot be excluded by this exam. Sales And Distribution Clerk: PSCB Transcribe Date/Time: May 24 2019 1:28P Dictated by : ASUNCION WATSON MD This examination was interpreted and the report reviewed and electronically signed by: ASUNCION WATSON MD on May 24 2019 12:57PM EST This document has been addended by: ASUNCION WATSON MD on May 24 2019 1:29PM EST [id number] Normal [facility] Basic Metabolic Panelon 11-3 Anion gap [Moles/Vol] 15 mmol/L [place], [place] Calcium [Mass/Vol] 9.1 mg/dL 8.5 - 9.9 mg/dL [place], [place] Chloride [Moles/Vol] 105 mmol/L [facility] [place] CO2 [Moles/Vol] 21 mmol/L [place] Creatinine [Mass/Vol] 0.82 mg/dL 0.7 - 1.2 mg/dL [facility] [place] GFR >60.0 >60 [facility] [place], [place] Comment on above: >60 mL/min/1.73m2 EG FR, calc. for ages 18 and older using the MDRD formula (not corrected for weight), is valid for stable renal function. GFR Non- >60.0 >60 [place], [place] Comment on above: >60 mL/min/1.73m2 EG FR, calc. for ages 18 and older using the MDRD formula (not corrected for weight), is valid for stable renal function. Glucose [Mass/Vol] 95 mg/dL 70 - 99 mg/dL [place] Potassium [Moles/Vol] 4.7 mmol/L [place], [place] Sodium [Moles/Vol] 141 mmol/L [place] Urea nitrogen [Mass/Vol] 14 mg/dL 6 - 20 mg/dL [place] CBC Auto Differentialon 11-3 0-2019 Basophils (Bld) [#/Vol] 0.1 10*3/uL 0 - 0.2 K/uL [place] Basophils/100 WBC (Bld) 0.8 % [place] Eosinophils (Bld) [#/Vol] 0.4 10*3/uL 0 - 0.7 K/uL [place] Eosinophils/100 WBC (Bld) 4.7 % [place] Erythrocyte distribution width (RBC) [Ratio] 14.1 % 11.5 - 14.5 % [place] Hematocrit (Bld) [Volume fraction] 45.0 % 42 - 52 % [place] Hemoglobin (Bld) [Mass/Vol] 15.1 g/dL 14 - 18 g/dL [place] Interpretation and review of laboratory results Abnormal [place] Lymphocytes (Bld) [#/Vol] 2.1 10*3/uL 1 - 4.8 K/uL [place] Lymphocytes/100 WBC (Bld) 23.2 % [place] MCH (RBC) [Entitic mass] 31.4 pg High 27 - 31.3 pg [place] MCHC (RBC) [Mass/Vol] 33.5 % 33 - 37 % [place] MCV (RBC) [Entitic vol] 93.8 fL 80 - 100 fL [place] Monocytes (Bld) [#/Vol] 0.5 10*3/uL 0.2 - 0.8 K/uL [place] Monocytes/100 WBC (Bld) 5.3 % [place] Neutrophils Absolute 6.1 K/uL 1.4 - 6 .5 K/uL [place] Neutrophils/100 WBC (Bld) 66.0 % [place] Platelets (Bld) [#/Vol] 215 10*3/uL 130 - 400 K/uL [place] RBC (Bld) [#/Vol] 4.80 10*6/uL [place] WBC (Bld) [#/Vol] 9.3 10*3/uL 4.8 - 10.8 K/uL [place] XR SHOULDER RIGHT (MIN 2 VIE WS)on 04-13-2019 No acute bony abnorm alities. Consider further evaluation with MRI. [place], [place] Right shoulder 3 vie ws. HISTORY: [...] joint essentially unremarkable with very subtle spurring. [place], [place] Anderson, Britt[place] Incoming R adiant Results From [email or web address] - 04/13/2019 10:01 AM EST Right shoulder [...] bony abnormalities. Consider further evaluation with MRI. [facility] [place], [place] ED NOTEon 08-29-2018 ED NOTE HNO ID: [id number] Author: Angelica EastRn) YOLI Bassett Service: ? Author Type: Registered Nurse Type: ED Notes Filed: 08/29/2018 2:49 PM Note Text: Discharge instructions reviewed, verbalized understanding. Patient discharged with all belongings. [facility] ED PROV NOTEon 08-29-2018 ED PROV NOTE HNO ID: [id number] Author: Evangelist Apple) Viraj Service: ? Author Type: Physician Taxi Dancer Type: ED Provider Notes Filed: 08/29/2018 3:05 [...] any other complaints. History provided by: Patient paraprofessional interpreter used: No PAST MEDICAL HISTORY Diagnosis [...] Final Result IMPRESSION: No acute radiographic abnormality. Sales And Distribution Clerk: TAO Transcribe Date/Time: Aug 29 2018 2:19P [...] stable SIGNATURE: CHASE Everett (Pa) 08/29/18 1505 [facility] XR CHEST 2V FRONTAL/LATon XR CHEST 2V [...] Other: . IMPRESSION: No acute radiographic abnormality. Sales And Distribution Clerk: TAO Transcribe Date/Time: Aug 29 2018 2:19P Dictated by : SANDER VALADEZ MD This examination was interpreted and the report reviewed and electronically signed by: SANDER VALADEZ MD on Aug 29 2018 2:22PM EST [id number] [facility] ALLIED HEALTHon 03-05-2019 ALLIED HEALTH HNO ID: [id number] Author: STEVE Shah (Ct) Service: ? Author Type: Clinical Foxing Painter Type: Allied Health Filed: 07/18/2018 2:12 PM [...] RADIOLOGY DEPARTMENT: CT; Exam(s) Completed: Abdomen/Pelvis SIGNATURE: STEVE Shah PATIENT NAME: Elijah Wylie Jr. DATE: July 18, 2018 TIME: 2:11 PM [facility] CBC and Differentialon 07-18 Abs Baso 0.09 k/uL Normal <0.11 [facility] Comment on above: Performed By: #### C BCDIF, CMP, LIPA, MG1 #### [facility] [address] [place] [phone] Abs [place] 0.61 k/uL Normal <0.87 [facility] Comment on above: Performed By: #### C BCDIF, CMP, LIPA, MG1 #### [facility] [address] [place] [address] Abs Neut 8.64 k/uL High 1.45-7.50 [facility] Comment on above: Performed By: #### C BCDIF, CMP, LIPA, MG1 #### [facility] [address] [place], [place] [phone] Basophils/100 WBC (Bld) 0.8 % Normal [facility] Comment on above: Performed By: #### C BCDIF, CMP, LIPA, MG1 #### [facility] [address] [place], [place] [phone] Eosinophils (Bld) [#/Vol] 0.20 10*3/uL Normal <0.46 [facility] Comment on above: Performed By: #### C BCDIF, CMP, LIPA, MG1 #### [facility] [address] [place], [place] [phone] Eosinophils/100 WBC (Bld) 1.7 % Normal [facility] Comment on above: Performed By: #### C BCDIF, CMP, LIPA, MG1 #### [facility] [address] [place], [place] [phone] Erythrocyte distribution width (RBC) [Ratio] 14.5 % Normal 11.5-15.0 [facility] Comment on above: Performed By: #### C BCDIF, CMP, LIPA, MG1 #### [facility] [address] [place], [place] [phone] Hematocrit (Bld) [Volume fraction] 47.8 % Normal 39.0-51.0 [facility] Comment on above: Performed By: #### C BCDIF, CMP, LIPA, MG1 #### [facility] [address] [place] [address] Hemoglobin (Bld) [Mass/Vol] 15.9 g/dL Normal 13.0-17.0 [facility] Comment on above: Performed By: #### C BCDIF, CMP, LIPA, MG1 #### [facility] [address] [facility] [phone] Lymphocytes (Bld) [#/Vol] 2.07 10*3/uL Normal 1.00-4.00 [facility] Comment on above: Performed By: #### C BCDIF, CMP, LIPA, MG1 #### [facility] [address] [facility] [phone] Lymphocytes/100 WBC (Bld) 17.8 % Normal [facility] Comment on above: Performed By: #### C BCDIF, CMP, LIPA, MG1 #### [facility] [address] [facility] [phone] MCH (RBC) [Entitic mass] 31.1 pG Normal 26.0-34.0 [facility] Comment on above: Performed By: #### C BCDIF, CMP, LIPA, MG1 #### [facility] [address] [place] [phone] MCHC (RBC) [Mass/Vol] 33.3 g/dL Normal 30.5-36.0 [facility] Comment on above: Performed By: #### C BCDIF, CMP, LIPA, MG1 #### [facility] [address] [place] [phone] MCV (RBC) [Entitic vol] 93.4 fL Normal 80.0-100.0 [facility] Comment on above: Performed By: #### C BCDIF, CMP, LIPA, MG1 #### [facility] [address] [place] [phone] Monocytes/100 WBC (Bld) 5.3 % Normal [facility] Comment on above: Performed By: #### C BCDIF, CMP, LIPA, MG1 #### [facility] [address] [place], [place] [phone] Neutrophils/100 WBC (Bld) 74.4 % Normal [facility] Comment on above: Performed By: #### C BCDIF, CMP, LIPA, MG1 #### [facility] [address] [place] [phone] Platelet mean volume (Bld) [Entitic vol] 12.1 fL Normal 9.0-12.7 [facility] Comment on above: Performed By: #### C BCDIF, CMP, LIPA, MG1 #### [facility] [address] [facility] [phone] Platelets (Bld) [#/Vol] 252 10*3/uL Normal 150-400 [facility] Comment on above: Performed By: #### C BCDIF, CMP, LIPA, MG1 #### [facility] [address] [facility] [phone] RBC (Bld) [#/Vol] 5.12 10*6/uL Normal 4.20-6.00 [facility] Comment on above: Performed By: #### C BCDIF, CMP, LIPA, MG1 #### [facility] [address] [facility] [phone] WBC (Bld) [#/Vol] 11.61 10*3/uL High 3.70-11.00 [facility] Comment on above: Performed By: #### C BCDIF, CMP, LIPA, MG1 #### [facility] [address] [facility] [phone] CT ABD/PEL W IVCONon 019 CT ABD/PEL W IVCON * * *Final Report* * * DATE OF EXAM: Jul 18 2018 2:17PM [facility] [place] 0530 - CT ABD/PEL W IVCON / [...] of previous Monica-en-Y surgery 3. Otherwise unremarkable Sales And Distribution Clerk: TAO Transcribe Date/Time: Jul 18 2018 2:32P Dictated by : SUSI BENNETT DO This examination was interpreted and the report reviewed and electronically signed by: SUSI BENNETT DO on Jul 18 2018 2:50PM EST [id number] Normal [facility] Comp Metabolic Panelon 07-18 Albumin [Mass/Vol] 4.4 g/dL Normal 3.9-4.9 [facility] Comment on above: Performed By: #### C BCDIF, CMP, LIPA, MG1 #### [facility] [address] [place] [address] ALP [Catalytic activity/Vol] 98 U/L Normal 38-113 [facility] Comment on above: Performed By: #### C BCDIF, CMP, LIPA, MG1 #### [facility] [address] [place], [place] [phone] ALT [Catalytic activity/Vol] 13 U/L Normal 10-54 [facility] Comment on above: Performed By: #### C BCDIF, CMP, LIPA, MG1 #### [facility] [address] [place], [place] [phone] Anion gap [Moles/Vol] 11 mmol/L Normal 9-18 [facility] Comment on above: Performed By: #### C BCDIF, CMP, LIPA, MG1 #### [facility] [address] [place], [place] [phone] AST [Catalytic activity/Vol] 14 U/L Normal 14-40 [facility] Comment on above: Performed By: #### C BCDIF, CMP, LIPA, MG1 #### [facility] [address] [place] [phone] Bilirubin [Mass/Vol] 0.7 mg/dL Normal 0.2-1.3 [facility] Comment on above: Performed By: #### C BCDIF, CMP, LIPA, MG1 #### [facility] [address] [place] [phone] Calcium [Mass/Vol] 9.3 mg/dL Normal 8.5-10.2 [facility] Comment on above: Performed By: #### C BCDIF, CMP, LIPA, MG1 #### [facility] [address] [place], [place] [phone] Chloride [Moles/Vol] 100 mmol/L Normal 97-105 [facility] Comment on above: Performed By: #### C BCDIF, CMP, LIPA, MG1 #### [facility] [address] [place] [address] CO2 [Moles/Vol] 26 mmol/L Normal 22-30 [facility] Comment on above: Performed By: #### C BCDIF, CMP, LIPA, MG1 #### [facility] [address] [place] [address] Creatinine [Mass/Vol] 0.73 mg/dL Normal 0.73-1.22 [facility] Comment on above: Performed By: #### C BCDIF, CMP, LIPA, MG1 #### [facility] [address] [place], [place] [phone] eGFR- Amer. >60 Normal [facility] Comment on above: Performed By: #### C BCDIF, CMP, LIPA, MG1 #### [facility] [address] [place] [address] GFR/1.73 sq M predicted among non-blacks MDRD (S/P/Bld) [Vol rate/Area] mL/min/{1.73_m2} Normal [facility] Comment on above: Result Comment: eGFR [...] #### C BCDIF, CMP, LIPA, MG1 #### [facility] [address] [facility] [phone] Glucose [Mass/Vol] 96 mg/dL Normal 74-99 [facility] Comment on above: Result Comment: The [place] Diabetes Association (ADA) provides guidance for cutoff [...] Standards of Medical Care in Diabetes 2016, [place] [employer]. Diabetes Care. 2016.39(Suppl 1). Performed By: #### C BCDIF, CMP, LIPA, MG1 #### [facility] [address] [facility] [phone] Potassium [Moles/Vol] 4.2 mmol/L Normal 3.7-5.1 [facility] Comment on above: Performed By: #### C BCDIF, CMP, LIPA, MG1 #### [facility] [address] [facility] [phone] Protein [Mass/Vol] 7.5 g/dL Normal 6.3-8.0 [facility] Comment on above: Performed By: #### C BCDIF, CMP, LIPA, MG1 #### [facility] [address] [facility] [phone] Sodium [Moles/Vol] 137 mmol/L Normal 136-144 [facility] Comment on above: Performed By: #### C BCDIF, CMP, LIPA, MG1 #### [facility] [address] [facility] [phone] Urea nitrogen [Mass/Vol] 10 mg/dL Normal 9-24 [facility] Comment on above: Performed By: #### C BCDIF, CMP, LIPA, MG1 #### [facility] [address] [facility] [phone] ED NOTEon 07-18-2018 ED NOTE HNO ID: [id number] Author: Bette (Rn) Ty, RN Service: Nursing Author Type: Registered Nurse Type: ED Notes Filed: 07/18/2018 7:25 PM Note Text: Pt accepted at main campus. Awaiting transport in approx 2 hours. has gone to get pt food, as he is allowed to eat up until midnight, per LYSSA Farris. Normal [facility] ED NOTE HNO ID: [id number] Author: Jenn EastRn) YOLI Nguyen Service: Nursing Author Type: Registered Nurse Type: ED Notes Filed: 07/18/2018 11:45 AM Note Text: Patient presents with left side abdominal pain x 2 weeks. He is unable to eat and drink. Patient states that he had an ulcer rupture last year and the pain feels the same. Normal [facility] ED PROV NOTEon 07-18-2018 ED PROV NOTE HNO ID: [id number] Author: LYSSA Pereira (Pa) Service: Emergency Medicine Author Type: Physician Taxi Dancer Type: ED Provider Notes Filed: 07/18/2018 8:37 PM Note Text: Attestation signed by Richie Villalpando III, MD at 07/19/2018 9:13 AM Attending Note I have personally performed a face to face assessment of the patient and have reviewed the PA/SUPERVISOR PASTE PLANT note. My pruitt findings include: This is [...] Patient Name: Elijah Wylie Jr. SERVICE DATE: 07/18/18 History Patient presents with: [...] to contact the patient's bariatric surgeon at [facility] (Dr. Patiño), but I was unable to contact him. Due to his persistent pain and that I am unable to contact his surgeon, he will be transferred to [facility] for evaluation by the bariatric surgery team and for further pain control. He did speak to the on-call bariatric surgeon, Dr. Mensah. He gladly accepted the patient to the [facility]. He stated they will do an EGD in the morning and that the patient likely has a new ulcer. Dr. Patiño will be the accepting physician. Patient is amenable with transfer to [facility]. He was transferred in stable condition. Medications iv contrast (radiology procedure) (not administered) And enteric contrast (radiology procedure) (not administered) morphine 4 mg injection (4 mg INTRAVENOUS Given 07/18/18 1238) ondansetron (PF) 4 mg injection (ZOFRAN) (4 mg INTRAVENOUS Given 07/18/18 1235) HYDROmorphone HCl 0.5 mg injection (DILAUDID) (0.5 mg INTRAVENOUS Given 07/18/18 1724) aluminum-magnesium hydroxide-simethicone 200-200-20 mg/5 mL 30 mL (MAALOX,MYLANTA,MAG-AL PLUS) (30 mL ORAL Given 07/18/181929) And lidocaine viscous 2 % 15 mL (XYLOCAINE) (15 mL ORAL Given 07/18/181929) HYDROmorphone HCl 0.5 mg injection (DILAUDID) (0.5 mg INTRAVENOUS Given 07/18/181932) The patient was TRANSFERRED to: [facility] Condition at time of disposition: improved and stable SIGNATURE: CHASE Pereira (LYSSA Manley 07/18/182036 Richie Villalpando III, MD 07/19/18 0913 Normal [facility] Lipaseon 07-18-2018 Lipase [Catalytic activity/Vol] 60 U/L Normal 16-61 [facility] Comment on above: Performed By: #### C BCDIF, CMP, LIPA, MG1 #### [facility] [address] [facility] [phone] Magnesiumon 07-18-2018 Magnesium [Mass/Vol] 1.9 mg/dL Normal 1.7-2.3 [facility] Comment on above: Performed By: #### C BCDIF, CMP, LIPA, MG1 #### [facility] [address] [address] Occult Blood Diag.on 019 Occult Blood Diag. Negative Normal [facility] Comment on above: Performed By: #### O BDX #### [facility] [address] [address] Occult Blood Source: Stool Normal [facility] Comment on above: Performed By: #### O BDX #### [facility] [address] [address] Urinalysison 07-18-2018 Bilirubin, Urine Negative Normal Negative [facility] Comment on above: Performed By: #### U A #### [facility] [address] [address] Clarity (U) Clear Normal Clear [facility] Comment on above: Performed By: #### U A #### [facility] [address] [place] [address] Color (U) Yellow Normal Yellow [facility] Comment on above: Performed By: #### U A #### [facility] [address] [place] [address] Glucose Ql (U) Negative Normal Negative [facility] Comment on above: Performed By: #### U A #### [facility] [address] [place] [address] Hemoglobin/Blood,Ur Negative Normal Negative [facility] Comment on above: Performed By: #### U A #### [facility] [address] [place] [address] Ketones Ql (U) Negative Normal Negative [facility] Comment on above: Performed By: #### U A #### [facility] [address] [address] Leukest Negative Normal Negative [facility] Comment on above: Performed By: #### U A #### [facility] [address] [place] [address] Nitrite Ql (U) Negative Normal Negative [facility] Comment on above: Performed By: #### U A #### [facility] [address] [place] [address] pH (Bld) 6.5 Normal 5.0-8.0 [facility] Comment on above: Performed By: #### U A #### [facility] [address] [phone] Protein (U) [Mass/Vol] Negative Normal Negative [facility] Comment on above: Performed By: #### U A #### [facility] [address] [phone] Specific Imperial, Ur <=1.005 Normal 1.001-1 .02 9 [facility] Comment on above: Performed By: #### U A #### [facility] [address] [phone] Urobilinogen Qn (U) 0.2 Normal 0.2-1.0 [facility] Comment on above: Performed By: #### U A #### [facility] [address] [phone] HISTORY PHYSICALon 8 HISTORY PHYSICAL HNO ID: [id number] thor: Fili CelesteSerambrosee: General SurgeryAuthor Type: PhysicianType: HANDPFiled: 02/10/2018 5:09 [...] remainder of the physical exam is noncontributory.AIRWAY: [id number]: Negative, Lungs clear to auscultation, Good diaphragmatic excursionCARDIAC: RRRAssessment/PlanASA Class: IIPrincipal Problem: Epigastric abdominal pain POA: Unknown Assessment AND Plan: upper endoscopyResolved Problems: * No resolved hospital problems. *Provisional Diagnosis/Treatment Plan: upper endoscopySIGNATURE: Fili Celeste MD PATIENT NAME: Elijah Wyile Jr.DATE: February 10, 2018 : 5:02 PM PAGER: [facility] NURSING PROGon 02-10-2018 Protein mass conc HNO ID: [id number] thor: NICKI Mata Lpnervice: NursingAuthorandy Type: LICENSED NURSEType: Nursing Progress NoteFiled: 02/10/2018 5:54 PMNote Text: Nursing Progress NotePatient Name: Elijah Wylie Jr. Location: TUAN-ENDOSCOPY POOL/TUAN End* Daily Note:Abdomen soft with active bowel sounds.This note was completed by: Luz Maria Jiménez LPN [facility] Protein mass conc HNO ID: [id number] thor: Felicita (Rn) Jeff Singhice: (none)Author Type: Registered NurseType: Nursing Progress NoteFiled: 02/10/2018 3:54 PMNote Text: Nursing Progress NotePatient Name: Elijah Wylie Jr. Location: TUAN-ENDOSCOPY POOL/TUAN End* Bowel sounds active, abdomen flat and firm.This note was completed by: Felicita Singh RN [facility] PT EDon 02-10-2018 PT ED HNO ID: [id number] thor: Roxanne Mata Lpnice: NursingAuthorandy Type: LICENSED NURSEType: Patient EducationFiled: 02/10/2018 5:55 PMNote Text:PATIENT EDUCATION TOPIC: PROCEDURE / SURGERY: Procedure/Surgery:Post Procedure Teaching: Med Administration and Symptom ManagementPATIENT INFORMATION: Patient StatusPlan of CarePATIENT NAME: Elijah Wylie Jr. LOCATION: TUAN-ENDOSCOPY POOL/TUAN End*READINESS TO LEARNCOGNITIVE ABILITY: Alert and orientedMOTIVATION TO LEARN: EagerFAMILY SUPPORT: None - Unavailable/disinterestedINST RUCTION PROVIDED TO: Patient and Patient and friend/otherPATIENT LEARNS BEST BY: Written Instruction - Hand-outsVerbal InstructionFACTORS AFFECTING LEARNING: NonePHYSICAL LIMITATIONS AFFECTING LEARNING: NoneLEARNING RESPONSEDIAGNOSIS: ADULT: Ankylosing SpondylitisPATIENT/FAMILY RESPONSE: Verbalizes understanding of: NUES-[id number]-Cz rrect actions to take to reduce post procedurecomplicationsMETHOD OF INSTRUCTION: Written instruction - handoutsVerbal instructionFOLLOW-UP PLAN: Patient instructed to call with any further issuesINSTRUCTIONAL AIDS USED: NASUPPLEMENTAL MATERIAL PROVIDED TO PATIENT: NoneREFERRAL (RECOMMENDATION): NoneElectronically Signed By: Luz Maria Jiménez LPN [facility] PT ED HNO ID: [id number] thor: Felicita (Rn) ITALIA Singhervice: (none)Author Type: Registered NurseType: Patient EducationFiled: 02/10/2018 3:51 PMNote Text:PATIENT EDUCATION TOPIC: PROCEDURE / SURGERY: Post-op Teaching: MedAdministration and Symptom ManagementPATIENT NAME: Elijah Barreto Akhil WeaverMRN: [id number] [facility]*READINESS TO LEARNCOGNITIVE ABILITY: Alert and orientedMOTIVATION TO LEARN: EagerFAMILY SUPPORT: High - Very involved in pt careINSTRUCTION PROVIDED TO: Patient and family memberPATIENT LEARNS BEST BY: Multiple MethodsFACTORS AFFECTING LEARNING: NonePHYSICAL LIMITATIONS AFFECTING LEARNING: NoneLEARNING RESPONSEDIAGNOSIS: ADULT:PATIENT/FAMILY RESPONSE: Verbalizes understanding of: CVP-[id number]-Sbn rect action to take to follow pre-operative instructionsMETHOD OF INSTRUCTION: Verbal instructionFOLLOW-UP PLAN: Patient instructed to call with any further issuesINSTRUCTIONAL AIDS USED: NASUPPLEMENTAL MATERIAL PROVIDED TO PATIENT: NoneREFERRAL (RECOMMENDATION): NoneElectronically Signed By: Felicita Singh RN [facility] HOSPon 02-07-2018 HOSP Patient:Smooth Wylie Jr.MRN: Height:6' 6 (1.981 m)Weight:225 lb (102.059 kg)Outpatient [...] 02/06/2018 51.0 39.0Progress Notes (RADIO CT SCAN [facility]):Vi Jeff, CT, CT 02/06/2018 2:44 PM Sign at close encounter Radiology Service Progress NotePATIENT NAME: Elijah Wylie OF SERVICE: February 06, 2018TIME: 2:43 PMPATIENT IDENTITY VERIFICATION COMPLETED USING TWO (2) METHODS: Patientconfirmed name verbally and ID band matches..PATIENT GENDER DATA: MalePATIENT RELEVANT IMPLANT DATA REVIEWED: YesCONTRAST INDUCED NEPHROPATHY RISK FACTORS: Not applicableCREATININE:Creatini neDate Value Ref Range Ilsoos6002/06/2018 0.68 (L) 0.73 - 1.22 mg/dL Final08/24/2017 0.70 (L) 0.73 - 1.22 mg/dL Final08/23/2017 0.73 0.73 - 1.22 mg/dL Final eGFR-All Other RacesDate Value Ref Range Kcsain1902/06/2018 >60 . FinalComment:eGFR (Estimated GFR) Units of [...] actual GFR. eGFR- AmericanDate Value Ref Range Pgncbd9802/06/2018 >60 Final P.O.C.T. RESULTS: N/A February 06, 2018RADIOLOGIST NOTIFIED?: ShaquilleERGIES: Reviewed and unchangedCONTRAST ALLERGY: NO.PERIPHERAL IV ACCESS: Inpatient: see LDA documentationRADIOLOGY DEPARTMENT: CT; Exam(s) Completed: Abdomen/PelvisSIGNED BY: Vi Jeff CTSept2017 2:[address] [facility] Vital Signs Date Time Vital Sign Value Performing Clinician Facility 04-13-2023 13:50-0500 Body height 191.13 cm Meng Florgles Other [facility] Other 04-04-2023 09:00-0500 Body height 191.13 cm Dimas Ferrer Other [facility] Other 04-04-2023 09:00-0500 Body mass index (BMI) [Ratio] 31.09 kg/m2 Dimas Ferrer Other [facility] Other 04-04-2023 09:00-0500 Body weight 113.58 kg Dimas Ferrer Other [facility] Other 04-04-2023 09:00-0500 SaO2% (BldA) [Mass fraction] 97 % Dimas Ferrer Other [facility] Other 03-31-2023 08:40-0500 Body height 191.13 cm Phoenix Kathy Other [facility] Other 03-31-2023 08:40-0500 Body mass index (BMI) [Ratio] 30.79 kg/m2 Phoenix Kathy Other [facility] Other 03-31-2023 08:40-0500 Body weight 112.49 kg Phoenix Kathy Other [facility] Other 03-31-2023 08:40-0500 Diastolic blood pressure 66 mm[Hg] Phoenix Chavez Other [facility] Other 03-31-2023 08:40-0500 SaO2% (BldA) [Mass fraction] 97 % Phoenix Chavez Other [facility] Other 03-31-2023 08:40-0500 Systolic blood pressure 112 mm[Hg] Phoenix Kathy Other [facility] Other 02-10-2023 11:00-0400 Body height 191.13 cm Madeline Fisher Other [facility] Other 02-10-2023 11:00-0400 Body mass index (BMI) [Ratio] 30.66 kg/m2 Madeline Fisher Other [facility] Other 02-10-2023 11:00-0400 Body weight 112.04 kg Madeline Fisher Other [facility] Other 02-10-2023 11:00-0400 Diastolic blood pressure 66 mm[Hg] Madeline Fisher Other [facility] Other 02-10-2023 11:00-0400 Systolic blood pressure 80 mm[Hg] Madeline Fisher Other [facility] Other 01-27-2023 12:00-0400 Body temperature 97.6 [degF] DO Meng Reid Work Phone: [facility] 01-27-2023 12:00-0400 Diastolic blood pressure 77 mm[Hg] DO Meng Reid Work Phone: [facility] 01-27-2023 12:00-0400 Heart rate 43 /min DO Meng Reid Work Phone: [facility] 01-27-2023 12:00-0400 Respiratory rate 16 /min DO Meng Reid Work Phone: [facility] 01-27-2023 12:00-0400 SaO2% (BldA) [Mass fraction] 97 % DO Meng Reid Work Phone: [facility] 01-27-2023 12:00-0400 Systolic blood pressure 127 mm[Hg] DO Meng Reid Work Phone: [facility] 01-26-2023 13:16-0400 Body height 195.58 cm DO Meng Reid Work Phone: [facility] 01-26-2023 13:16-0400 Body mass index (BMI) [Ratio] 29.2 kg/m2 DO Meng Reid Work Phone: [facility] 01-26-2023 13:16-0400 Body weight 112 kg DO Meng Reid Work Phone: [facility] 01-24-2023 23:16-0400 Diastolic blood pressure 69 mm[Hg] DO Meng Reid Work Phone: [facility] 01-24-2023 23:16-0400 Heart rate 46 /min DO Meng Reid Work Phone: [facility] 01-24-2023 23:16-0400 Respiratory rate 18 /min DO Meng Reid Work Phone: [facility] 01-24-2023 23:16-0400 SaO2% (BldA) [Mass fraction] 95 % DO Meng Reid Work Phone: [facility] 01-24-2023 23:16-0400 Systolic blood pressure 116 mm[Hg] DO Meng Reid Work Phone: [facility] 01-24-2023 21:32-0400 Body height 195.58 cm DO Meng Reid Work Phone: [facility] 01-24-2023 21:32-0400 Body temperature 97.3 [degF] DO Meng Reid Work Phone: [facility] 01-24-2023 21:32-0400 Body weight 113.39 kg DO Meng Reid Work Phone: [facility] 10-27-2022 11:30-0400 Body height 191.13 cm Meng Reid Other [facility] Other 10-27-2022 11:30-0400 Body mass index (BMI) [Ratio] 30.66 kg/m2 Meng Reid Other [facility] Other 10-27-2022 11:30-0400 Body temperature 97.2 [degF] Meng Reid Other [facility] Other 10-27-2022 11:30-0400 Body weight 112.04 kg Meng Reid Other [facility] Other 10-27-2022 11:30-0400 Diastolic blood pressure 72 mm[Hg] Meng Reid Other [facility] Other 10-27-2022 11:30-0400 Respiratory rate 20 /min Meng Reid Other [facility] Other 10-27-2022 11:30-0400 SaO2% (BldA) [Mass fraction] 94 % Meng Reid Other [facility] Other 10-27-2022 11:30-0400 Systolic blood pressure 112 mm[Hg] Meng Reid Other [facility] Other 09-08-2022 19:00-0400 Diastolic blood pressure 88 mm[Hg] Meng Reid [facility] 09-08-2022 19:00-0400 SaO2% (BldA) [Mass fraction] 94 % Meng Reid [facility] 09-08-2022 19:00-0400 Systolic blood pressure 131 mm[Hg] Meng Reid [facility] 09-08-2022 18:34-0400 Body height 195.6 cm Meng Reid [facility] 09-08-2022 18:34-0400 Body mass index (BMI) [Ratio] 30.59 kg/m2 Meng Reid [facility] 09-08-2022 18:34-0400 Body temperature 98.29 [degF] Meng Reid [facility] 09-08-2022 18:34-0400 Body weight 117.03 kg Meng Reid [facility] 09-08-2022 18:34-0400 Heart rate 66 /min Meng Reid [facility] 09-08-2022 18:34-0400 Respiratory rate 22 /min [facility]eng [facility] 05-13-2022 14:24-0500 Diastolic blood pressure 96 mm[Hg] Jazmine Estrella DO Work Phone: [facility] 05-13-2022 14:24-0500 Systolic blood pressure 138 mm[Hg] Jazmine Estrella DO Work Phone: [facility] 05-13-2022 14:12-0500 Body height 195.6 cm Jazmine Estrella DO Work Phone: [facility] 05-13-2022 14:120500 Body weight 113.85 kg Jazmine Estrella DO Work Phone: [facility] 05-13-2022 14:12-0500 Heart rate 56 /min Jazmine Estrella DO Work Phone: [facility] 05-13-2022 14:12-0500 SaO2% (BldA) [Mass fraction] 97 % Jazmine Estrella DO Work Phone: [facility] 03-23-2022 10:21-0500 Body height 195.6 cm Vicki Devi DO Work Phone[facility] 03-23-2022 10:21-0500 Body mass index (BMI) [Ratio] 27.87 kg/m2 Vicki Devi DO Work Phone: [facility] 03-23-2022 10:21-0500 Body temperature 97.59 [degF] Vicki Devi DO Work Phone: [facility] 03-23-2022 10:21-0500 Body weight 106.59 kg Vicki Devi DO Work Phone: [facility] 03-23-2022 10:21-0500 Diastolic blood pressure 92 mm[Hg] Vicki Devi DO Work Phone[facility] 03-23-2022 10:21-0500 Heart rate 59 /min Vicki Devi DO Work Phone: [employer] 03-23-2022 10:21-0500 Respiratory rate 18 /min Vicki Devi DO Work Phone: [facility] [employer] 03-23-2022 10:21-0500 SaO2% (BldA) [Mass fraction] 98 % Vicki Devi DO Work Phone: [employer] 03-23-2022 10:21-0500 Systolic blood pressure 132 mm[Hg] Vicki Devi DO Work Phone: [employer] 12-02-2021 08:44-0400 Body height 198.1 cm Karuna Shin MD Work Phone: [employer] 12-02-2021 08:44-0400 Body mass index (BMI) [Ratio] 26.23 kg/m2 Karuna Shin MD Work Phone: [employer] 12-02-2021 08:44-0400 Body temperature 98.6 [degF] Karuna Shin MD Work Phone: [employer] 12-02-2021 08:44-0400 Body weight 102.97 kg Karuna Shin MD Work Phone: [facility] 12-02-2021 08:44-0400 Diastolic blood pressure 87 mm[Hg] Karuna Shin MD Work Phone: [employer] 12-02-2021 08:44-0400 Heart rate 61 /min Karuna Shin MD Work Phone: [employer] 12-02-2021 08:44-0400 Respiratory rate 16 /min Karuna Shin MD Work Phone: [employer] 12-02-2021 08:44-0400 SaO2% (BldA) [Mass fraction] 97 % Karuna Shin MD Work Phone: [facility] 12-02-2021 08:44-0400 Systolic blood pressure 137 mm[Hg] Karuna Shin MD [facility] Phone[facility] 10-23-2021 16:30-0400 Diastolic blood pressure 68 mm[Hg] Elijah [place] Work Phone: [facility] 10-23-2021 16:30-0400 Heart rate 50 /min Elijah [place] Work Phone: [facility] 10-23-2021 16:30-0400 Respiratory rate 16 /min Elijah [place] Work Phone: [facility] 10-23-2021 16:30-0400 SaO2% (BldA) [Mass fraction] 97 % Elijah [place] Work Phone: [facility] 10-23-2021 16:30-0400 Systolic blood pressure 114 mm[Hg] Elijah [place] Work Phone: [facility] 10-23-2021 13:02-0400 Body temperature 97.7 [degF] Elijah [place] Work Phone: [facility] 10-23-2021 12:58-0400 Body height 198.1 cm Elijah [place] Work Phone: [facility] 10-23-2021 12:58-0400 Body mass index (BMI) [Ratio] 28.89 kg/m2 Elijah [place] Work Phone: [facility] 10-23-2021 12:58-0400 Body weight 113.4 kg Elijah [place] Work Phone: [facility] 09-23-2021 13:23-0400 Body height 198.1 cm [facility] 09-23-2021 13:23-0400 Body mass index (BMI) [Ratio] 28.89 kg/m2 Stewart Reid [facility] 09-23-2021 13:23-0400 Body temperature 98.49 [degF] [facility] [employer] 09-23-2021 13:23-0400 Body weight 113.4 kg [facility] [employer] 09-23-2021 13:23-0400 Diastolic blood pressure 85 mm[Hg] [facility] 09-23-2021 13:23-0400 Heart rate 64 /min [facility] [employer] 09-23-2021 13:23-0400 Respiratory rate 18 /min [facility] [employer] 09-23-2021 13:23-0400 SaO2% (BldA) [Mass fraction] 97 % [facility] [employer] 09-23-2021 13:23-0400 Systolic blood pressure 127 mm[Hg] [facility] [employer] 09-08-2021 10:00-0400 Diastolic blood pressure 96 mm[Hg] Tariq Gonzalez MD Work Phone: [facility] [employer] 09-08-2021 10:00-0400 Heart rate 66 /min Tariq Gonzalez MD Work Phone: [facility] [employer] 09-08-2021 10:00-0400 Respiratory rate 14 /min Tariq Gonzalez MD Work Phone: [facility] [employer] 09-08-2021 10:00-0400 SaO2% (BldA) [Mass fraction] 96 % Tariq Gonzalez MD Work Phone: [facility] [employer] 09-08-2021 10:00-0400 Systolic blood pressure 137 mm[Hg] Tariq Gonzalez MD Work Phone: [facility] [employer] 09-08-2021 09:48-0400 Body height 195.6 cm Tariq Gonzalez MD Work Phone: [facility] [employer] 09-08-2021 09:48-0400 Body mass index (BMI) [Ratio] 29.65 kg/m2 Tariq Gonzalez MD Work Phone: [facility] [employer] 09-08-2021 09:48-0400 Body temperature 97.7 [degF] Tariq Gonzalez MD Work Phone: [facility] [employer] 09-08-2021 09:48-0400 Body weight 113.4 kg Tariq Gonzalez MD Work Phone: [facility] 07-01-2021 08:50-0500 Body height 198.1 cm Karuna Shin MD Work Phone: [facility] 07-01-2021 08:50-0500 Body mass index (BMI) [Ratio] 29.47 kg/m2 Karuna Shin MD Work Phone: [facility] 07-01-2021 08:50-0500 Body temperature 97.59 [degF] Karuna Shin MD Work Phone: [facility] 07-01-2021 08:50-0500 Body weight 115.67 kg Karuna Shin MD Work Phone: [facility] 07-01-2021 08:50-0500 Diastolic blood pressure 72 mm[Hg] Karuna Shin MD Work Phone: [facility] 07-01-2021 08:50-0500 Heart rate 63 /min Karuna Shin MD Work Phone: [facility] 07-01-2021 08:50-0500 Respiratory rate 20 /min Karuna Shin MD Work Phone: [facility] 07-01-2021 08:50-0500 SaO2% (BldA) [Mass fraction] 98 % Karuna Shin MD Work Phone: [facility] 07-01-2021 08:50-0500 Systolic blood pressure 152 mm[Hg] Karuna Shin MD Work Phone: [facility] 06-23-2021 17:15-0500 Body height 191.13 cm Meng Reid Other [facility] Other 06-23-2021 17:15-0500 Body mass index (BMI) [Ratio] 31.04 kg/m2 Meng Reid Other [facility] Other 06-23-2021 17:15-0500 Body temperature 97.7 [degF] Meng Reid Other [facility] Other 06-23-2021 17:15-0500 Body weight 113.4 kg Meng Reid Other [facility] Other 06-23-2021 17:15-0500 Diastolic blood pressure 78 mm[Hg] Meng Reid Other [facility] Other 06-23-2021 17:15-0500 Respiratory rate 18 /min Meng Reid Other [facility] Other 06-23-2021 17:15-0500 SaO2% (BldA) [Mass fraction] 97 % Meng Reid Other [facility] Other 06-23-2021 17:15-0500 Systolic blood pressure 112 mm[Hg] Meng Reid Other [facility] Other 06-18-2021 13:26-0500 Diastolic blood pressure 89 mm[Hg] Vicki Bulgrin DO Work Phone: [facility] 06-18-2021 13:26-0500 Heart rate 89 /min Vicki Bulgrin DO Work Phone: [facility] 06-18-2021 13:26-0500 Respiratory rate 18 /min Vicki Bulgrin DO Work Phone: [facility] 06-18-2021 13:26-0500 SaO2% (BldA) [Mass fraction] 99 % Vicki Bulgrin DO Work Phone: [facility] 06-18-2021 13:26-0500 Systolic blood pressure 133 mm[Hg] Vicki Bulgrin DO Work Phone: [facility] 06-18-2021 11:51-0500 Body height 198.1 cm Vicki Devi DO Work Phone: [facility] 06-18-2021 11:51-0500 Body mass index (BMI) [Ratio] 30.62 kg/m2 Vicki Devi DO Work Phone: [facility] 06-18-2021 11:51-0500 Body temperature 97.7 [degF] Vicki Devi DO Work Phone: [facility] 06-18-2021 11:51-0500 Body weight 120.2 kg Vicki Devi DO Work Phone: [facility] 02-24-2021 08:45-0400 Diastolic blood pressure 102 mm[Hg] Pj Werner MD Work Phone: [facility] Work Phone: 02-24-2021 08:45-0400 SaO2% (BldA) [Mass fraction] 96 % Pj Werner MD Work Phone: [facility] Work Phone: 02-24-2021 08:45-0400 Systolic blood pressure 127 mm[Hg] Pj Werner MD Work Phone: [facility] Work Phone: 02-24-2021 08:00-0400 Heart rate 57 /min Pj Werner MD Work Phone: [facility] Work Phone: 02-24-2021 08:00-0400 Respiratory rate 15 /min Pj Werner MD Work Phone: [facility] Work Phone: 02-24-2021 06:55-0400 Body height 195.6 cm Pj Werner MD Work Phone: [employer] Phone: 02-24-2021 06:55-0400 Body mass index (BMI) [Ratio] 29.65 kg/m2 Pj Werner MD Work Phone: [facility] Work Phone: 02-24-2021 06:55-0400 Body temperature 97.3 [degF] Pj Werner MD Work Phone: [facility] Work Phone: 02-24-2021 06:55-0400 Body weight 113.4 kg Pj Werner MD Work Phone: [facility] Work Phone: 11-08-2020 09:36-0400 Body height 198.1 cm [employer] Work Phone: 11-08-2020 09:36-0400 Body mass index (BMI) [Ratio] 27.16 kg/m2 [facility] Work Phone: 11-08-2020 09:36-0400 Body temperature 98.1 [degF] Ana [employer] Work Phone: 11-08-2020 09:36-0400 Body weight 106.59 kg [facility] Work Phone: 11-08-2020 09:36-0400 Diastolic blood pressure 74 mm[Hg] Ana [employer] Work Phone: 11-08-2020 09:36-0400 Heart rate 60 /min [facility] Work Phone: 11-08-2020 09:36-0400 Respiratory rate 17 /min [employer] Work Phone: 11-08-2020 09:36-0400 SaO2% (BldA) [Mass fraction] 96 % Ana Bedoya DO [facility] Work Phone: 11-08-2020 09:36-0400 Systolic blood pressure 132 mm[Hg] Ana Bedoya DO [facility] Work Phone: 10-24-2020 19:15-0400 Body temperature 98.2 [degF] Karuna Shin MD Work Phone: [facility] Work Phone: 10-24-2020 19:15-0400 Diastolic blood pressure 80 mm[Hg] Karuna Shin MD Work Phone: [facility] Work Phone: 10-24-2020 19:15-0400 Heart rate 70 /min Karuna Shin MD Work Phone: [facility] Work Phone: 10-24-2020 19:15-0400 Respiratory rate 18 /min Karuna Shin MD Work Phone: [employer] Work Phone: 10-24-2020 19:15-0400 SaO2% (BldA) [Mass fraction] 98 % Karuna Shin MD Work Phone: [facility] Work Phone: 10-24-2020 19:15-0400 Systolic blood pressure 126 mm[Hg] Karuna Shin MD Work Phone: [facility] Work Phone: 10-24-2020 18:38-0400 Body height 198.1 cm Karuna Shin MD Work Phone: [facility] Work Phone: 10-24-2020 18:38-0400 Body mass index (BMI) [Ratio] 28.89 kg/m2 Karuna Shin MD Work Phone: [facility] Work Phone: 10-24-2020 18:38-0400 Body weight 113.4 kg Karuna Shin MD Work Phone: [facility] Work Phone: 10-19-2020 12:37-0400 Body height 198.1 cm Ana Bedoya [employer] Work Phone: 10-19-2020 12:37-0400 Body mass index (BMI) [Ratio] 27.73 kg/m2 Ana Bedoya DO [facility] Work Phone: 10-19-2020 12:37-0400 Body temperature 98.29 [degF] Ana Bedoya [employer] Work Phone: 10-19-2020 12:37-0400 Body weight 108.86 kg Anamary lou [employer] Work Phone: 10-19-2020 12:37-0400 Diastolic blood pressure 83 mm[Hg] Ana Bedoya DO [facility] Work Phone: 10-19-2020 12:37-0400 Respiratory rate 18 /min Anamary lou Bedoya [employer] Work Phone: 10-19-2020 12:37-0400 SaO2% (BldA) [Mass fraction] 96 % Anamary lou [employer] Work Phone: 10-19-2020 12:37-0400 Systolic blood pressure 144 mm[Hg] Ana Bedoya [employer] Work Phone: 10-15-2020 10:23-0400 Diastolic blood pressure 77 mm[Hg] Karuna Shin MD Work Phone: [employer] Work Phone: 10-15-2020 10:23-0400 Heart rate 52 /min Karuna Shin MD Work Phone: [employer] Work Phone: 10-15-2020 10:23-0400 Respiratory rate 20 /min Karuna Shin MD Work Phone: [employer] Work Phone: 10-15-2020 10:23-0400 SaO2% (BldA) [Mass fraction] 97 % Karuna Shin MD Work Phone: [employer] Work Phone: 10-15-2020 10:23-0400 Systolic blood pressure 122 mm[Hg] Karuna Shin MD Work Phone: [employer] Work Phone: 10-15-2020 08:58-0400 Body temperature 97.9 [degF] Karuna Shin MD Work Phone: [employer] Work Phone: 10-15-2020 08:53-0400 Body height 198.1 cm Karuna Shin MD Work Phone: [employer] Work Phone: 10-15-2020 08:53-0400 Body mass index (BMI) [Ratio] 28.31 kg/m2 Karuna Shin MD Work Phone: [employer] Work Phone: 10-15-2020 08:53-0400 Body weight 111.13 kg Karuna Shin MD Work Phone: [employer] Work Phone: 08-07-2020 12:24-0400 BMI (Body Mass Index) 30.05 kg/m2 [employer] Work Phone: 08-07-2020 12:24-0400 Body Temperature 98.2 [degF] [employer] Work Phone: 08-07-2020 12:24-0400 Body weight 117.94 kg [employer] Work Phone: 03-25-2021 12:24-0400 BP Diastolic 95 mm[Hg] [facility] [employer] Work Phone: 08-07-2020 12:24-0400 BP Systolic 135 mm[Hg] [facility] Work Phone: 08-07-2020 12:24-0400 Height 198.[address] [facility] Work Phone: 08-07-2020 12:24-0400 Pulse (Heart Rate) 57 /min [facility] [employer] Work Phone: 08-07-2020 12:24-0400 Pulse Oximetry 98 % [facility] [employer] Work Phone: 08-07-2020 12:24-0400 Respiratory Rate 18 /min [facility] [employer] Work Phone: 04-01-2020 09:09-0500 BMI (Body Mass Index) 29.12 kg/m2 [facility]iel [facility] [place] 04-01-2020 09:09-0500 Body Temperature 97.81 [degF] [place] [facility] [place] 04-01-2020 09:09-0500 Body weight 114.31 kg Uziel [facility] , [place] 04-01-2020 09:09-0500 BP Diastolic 89 mm[Hg] Uziel [facility] [place] 04-01-2020 09:09-0500 BP Systolic 149 mm[Hg] [place] [facility] , [place] 04-01-2020 09:09-0500 Height 198.1 cm [place] [facility] [place] [facility] [place] 04-01-2020 09:09-0500 Pulse (Heart Rate) 65 /min [place] [facility] 04-01-2020 09:09-0500 Pulse Oximetry 98 % Uziel [facility] Gaming[facility] [place] 04-01-2020 09:09-0500 Respiratory Rate 20 /min [place] [facility] [place] 02-20-2020 12:50-0400 BMI (Body Mass Index) 28.89 kg/m2 Missynjrandy Woodard [facility], [place] 02-20-2020 12:50-0400 Body Temperature 98.2 [degF] Missynjrandy Woodard [facility] [place] 02-20-2020 12:50-0400 Body weight 113.4 kg Missynjrandy Woodard [facility] , [place] 02-20-2020 12:50-0400 BP Diastolic 80 mm[Hg] [facility] , [place] 02-20-2020 12:50-0400 BP Systolic 147 mm[Hg] [facility] , [place] 02-20-2020 12:50-0400 Pulse (Heart Rate) 66 /min [facility], [place] 02-20-2020 12:50-0400 Pulse Oximetry 98 % [facility] , [place] 02-20-2020 12:50-0400 Respiratory Rate 18 /min [facility] , [place] 02-19-2020 12:13-0400 BMI (Body Mass Index) 28.89 kg/m2 Uzielroes Waters [facility], [place] 02-19-2020 12:13-0400 Body Temperature 98.01 [degF] Uzielrose Waters [facility] [place], [place] 02-19-2020 12:13-0400 Body weight 113.4 kg Uzielrose Waters [facility] , [place] 02-19-2020 12:13-0400 BP Diastolic 86 mm[Hg] [facility] [place] , [place] 02-19-2020 12:13-0400 BP Systolic 141 mm[Hg] [facility] , [place] 02-19-2020 12:13-0400 Pulse (Heart Rate) 69 /min [facility] 02-19-2020 12:13-0400 Pulse Oximetry 98 % [facility] , [place] 02-19-2020 12:13-0400 Respiratory Rate 20 /min [facility] [place] 11-01-2019 09:10-0400 BMI (Body Mass Index) 28.31 kg/m2 [facility], [place] 11-01-2019 09:10-0400 Body Temperature 97.7 [degF] Uziel Waters [email or web address] [place] 11-01-2019 09:10-0400 Body weight 111.13 kg Uziel Waters [email or web address] [place] , [place] 11-01-2019 09:10-0400 BP Diastolic 70 mm[Hg] Uziel Ray [facility] [place] , [place] 11-01-2019 09:10-0400 BP Systolic 149 mm[Hg] Uziel Waters [email or web address] [place] , [place] 11-01-2019 09:10-0400 Height 198.1 cm Uziel [facility] [place] , [place] 11-01-2019 09:10-0400 Pulse (Heart Rate) 58 /min Uziel Waters [employer] 11-01-2019 09:10-0400 Pulse Oximetry 99 % Uziel ChenB[employer]- [place] , [place] 11-01-2019 09:10-0400 Respiratory Rate 16 /min Uziel ChenB[employer]- [place] , [place] 05-19-2019 19:13-0500 Body height 198.1 cm Karuna Shin MD Work Phone: [employer] Work Phone: 05-19-2019 19:13-0500 Body mass index (BMI) [Ratio] 25.89 kg/m2 Karuna Shin MD Work Phone: [employer] Work Phone: 05-19-2019 19:13-0500 Body temperature 97.7 [degF] Karuna Shin MD Work Phone: [employer] Work Phone: 05-19-2019 19:13-0500 Body weight 101.61 kg Karuna Shin MD Work Phone: [employer] Work Phone: 05-19-2019 19:13-0500 Diastolic blood pressure 75 mm[Hg] Karuna Shin MD Work Phone: [employer] Work Phone: 05-19-2019 19:13-0500 Heart rate 70 /min Karuna Shin MD Work Phone: [employer] Work Phone: 05-19-2019 19:13-0500 Respiratory rate 18 /min Karuna Shin MD Work Phone: [employer] Work Phone: 05-19-2019 19:13-0500 SaO2% (BldA) [Mass fraction] 97 % Karuna Shin MD Work Phone: [employer] Work Phone: 05-19-2019 19:13-0500 Systolic blood pressure 144 mm[Hg] Karuna Shin MD Work Phone: [employer] Work Phone: 04-17-2019 14:28-0500 BMI (Body Mass Index) 25.89 kg/m2 [facility] [facility] 04-17-2019 14:28-0500 Body Temperature 98.29 [degF] [employer] [facility], [place] 04-17-2019 14:28-0500 Body weight 101.61 kg [facility]onSeamlessDocsM[facility] , [place] 04-17-2019 14:28-0500 BP Diastolic 86 mm[Hg] [facility] , [place] 04-17-2019 14:28-0500 BP Systolic 134 mm[Hg] [facility] , [place] 04-17-2019 14:28-0500 Height 198.1 cm [facility]is[facility] [place] 04-17-2019 14:28-0500 Pulse (Heart Rate) 69 /min [facility] 04-17-2019 14:28-0500 Pulse Oximetry 99 % [facility]isM[facility] , [place] 04-17-2019 14:28-0500 Respiratory Rate 16 /min [facility]onSeamlessDocsEll[facility], [place] 04-14-2019 22:00-0500 Body Temperature 98.29 [degF] Ernestina [facility], [place] 04-14-2019 22:00-0500 BP Diastolic 91 mm[Hg] Ernestina [facility] , [place] 04-14-2019 22:00-0500 BP Systolic 180 mm[Hg] Ernestina Woodard [facility] , [place] 04-14-2019 22:00-0500 Pulse (Heart Rate) 62 /min Ernestina Woodard [facility], [place] 04-14-2019 22:00-0500 Pulse Oximetry 98 % Ernestina Woodard [facility] , [place] 04-14-2019 11:46-0500 BP Diastolic 74 mm[Hg] Ernestina Woodard [facility] , [place] 04-14-2019 11:46-0500 BP Systolic 120 mm[Hg] Ernestina Woodard [facility] , [place] 04-14-2019 11:46-0500 Pulse (Heart Rate) 58 /min Ernestina Woodard [facility], [place] 04-14-2019 11:46-0500 Pulse Oximetry 99 % Ernestina Woodard [facility] , [place] 04-14-2019 11:46-0500 Respiratory Rate 18 /min Ernestina Woodard [facility], [place] 04-14-2019 10:58-0500 Body Temperature 98.6 [degF] Ernestina Woodard [facility], [place] 04-14-2019 09:37-0500 BMI (Body Mass Index) 25.89 kg/m2 Ernestina Woodard [facility], [place] 04-14-2019 09:37-0500 Body weight 101.61 kg Ernestina Woodard [facility] , [place] 04-14-2019 09:37-0500 Height 198.1 cm Ernestina Woodard [facility] , [place] 04-13-2019 09:58-0500 BP Diastolic 79 mm[Hg] Deandre Torres [facility] , [place] 04-13-2019 09:58-0500 BP Systolic 116 mm[Hg] [facility] , [place] 04-13-2019 09:58-0500 Pulse (Heart Rate) 60 /min Deandre Torres [facility], [place] 04-13-2019 09:58-0500 Pulse Oximetry 98 % [facility] , [place] 04-13-2019 09:58-0500 Respiratory Rate 16 /min [facility] [place] 04-13-2019 09:09-0500 BMI (Body Mass Index) 25.89 kg/m2 Deandre Woodard [facility], [place] 04-13-2019 09:09-0500 Body Temperature 97.9 [degF] Deandre Woodard [place], [place] 04-13-2019 09:09-0500 Body weight 101.61 kg Deandre Woodard [facility] , [place] 04-13-2019 09:09-0500 Height 198.1 cm Deandre Woodard [facility] , [place] Encounters Encounter Date Encounter Type Care Provider Facility Start: 12-01-2023 End: 12-01-2023 ambulatory VERONICA HILL Not Available Start: 09-13-2023 End: 09-13-2023 ambulatory THERESA MOON Not Available Start: 08-21-2023 Letter encounter [facility] Work Phone: Start: 06-27-2023 End: 06-27-2023 ambulatory Meng Reid Other [employer] Other Start: 06-27-2023 Telephone encounter Meng Reid [facility] Start: 06-06-2023 End: 06-06-2023 ambulatory Meng Reid Other [employer] Other Start: 06-06-2023 Telephone encounter Meng Reid [facility] Start: 05-26-2023 End: 05-26-2023 ambulatory Meng Reid Other [employer] Other Start: 05-26-2023 Telephone encounter Meng Reid [facility] Start: 05-17-2023 End: 05-17-2023 ambulatory Meng Reid Other [employer] Other Start: 05-17-2023 Telephone encounter Meng Reid [facility] Start: 05-14-2023 Letter encounter Evelin Giang do [facility]TR/L [facility] Start: 05-05-2023 End: 05-05-2023 ambulatory Dimas Ferrer Other [employer] Other Start: 05-05-2023 Office outpatient vi sit 15 minutes Dimas Ferrer [facility] Start: 04-14-2023 (PROC) PROCEDURE Dimas Mathis [facility] Start: 04-14-2023 End: 04-14-2023 ambulatory Dimas Ferrer Other [employer] Other Start: 04-13-2023 End: 04-13-2023 ambulatory Meng Reid Other [employer] Other Start: 04-13-2023 Telephone encounter Meng Reid [facility] Start: 04-04-2023 End: 04-04-2023 ambulatory Dimas Ferrer Other [employer] Other Start: 04-04-2023 Office consultation new/estab patient 60 min Dimas Ferrer [facility] Start: 04-04-2023 Telephone encounter Dimas Ferrer [facility] Start: 03-31-2023 End: 03-31-2023 ambulatory Phoenix Chavez Other [employer] Other Start: 03-31-2023 Postop follow up vis it related to original px Phoenix Chavez [facility] Start: 03-08-2023 End: 03-08-2023 ambulatory Meng Reid Other [employer] Other Start: 03-08-2023 Telephone encounter Meng Reid [facility] Start: 03-03-2023 End: 03-03-2023 ambulatory Meng Reid Other [employer] Other Start: 03-03-2023 Telephone encounter Meng Reid [facility] Start: 02-15-2023 End: 02-15-2023 ambulatory Phoenix Everardo Kathy Facility:[facility] Start: 02-15-2023 End: 02-15-2023 ambulatory DO Meng Florgles Work Phone: [facility] Work Phone: Start: 02-15-2023 End: 02-15-2023 Patient encounter procedure DO Meng Reid Work Phone: [facility] [place] Work Phone: Start: 02-14-2023 End: 02-14-2023 ambulatory Phoenix Chavez Other [employer] Other Start: 02-14-2023 Telephone encounter Phoenix Chavez [facility] [place] Start: 02-10-2023 End: 02-10-2023 ambulatory Madeline Fisher Other [employer] Other Start: 02-10-2023 Postop follow up vis it related to original px Madeline Fisher [facility] [place] Start: 02-09-2023 End: 02-09-2023 ambulatory Meng Reid Other [employer] Other Start: 02-09-2023 Telephone encounter Meng Reid [facility] Start: 02-08-2023 End: 02-08-2023 ambulatory Phoenixeverardo Chavez Other [employer] Other Start: 02-08-2023 Telephone encounter Phoenix Chavez [facility] [place] Start: 02-07-2023 End: 02-07-2023 ambulatory Meng Reid Other [employer] Other Start: 02-07-2023 Telephone encounter Meng Reid [facility] [employer] Start: 02-03-2023 End: 02-03-2023 ambulatory Meng Reid Other [employer] Other Start: 02-03-2023 Telephone encounter Meng Reid [facility] Start: 01-28-2023 End: 01-28-2023 ambulatory Meng Reid Other [place] [employer] Other Start: 01-28-2023 Telephone encounter Meng Reid [facility] Start: 01-27-2023 End: 01-27-2023 ambulatory Mourhaf Traboulssi Facility:[id number] Start: 01-27-2023 Patient encounter procedure Phoenix Chavez [facility] Start: 01-26-2023 ambulatory Mourhaf Traboulssi Faci lity:[id number] Start: 01-25-2023 Patient encounter procedure Phoenix Chavez [facility] Start: 01-25-2023 ambulatory Mourhaf Traboulssi Faci lity:[id number] Start: 01-25-2023 End: 01-25-2023 ambulatory Mourhaf Traboulssi Facility:[id number] Start: 01-25-2023 End: 01-27-2023 Evaluation and management of inpatient Phoenix Chavez Facility:[facility] Start: 01-24-2023 End: 01-27-2023 Evaluation and management of inpatient DO Meng Reid Work Phone: [facility] [place] [address] Work Phone: Start: 01-24-2023 observation encounter DO Meng M. Reid Work Phone: [facility] Work Phone: Start: 01-24-2023 End: 01-24-2023 ambulatory DO Meng M. Reid Work Phone: [facility] Work Phone: Start: 01-24-2023 End: 01-24-2023 Patient encounter procedure DO Meng Reid Work Phone: [facility] [place] Work Phone: Start: 01-06-2023 End: 01-06-2023 ambulatory Meng Reid Other [employer] Other Start: 01-06-2023 Telephone encounter Meng Reid [facility] Start: 12-17-2022 Refill Meng limon DO Work Phone: Pediatric Urology Comment on above: Refill Request Start: 12-16-2022 Refill Jazmine Estrella DO Work Phone: Cardiology Comment on above: Refill Request Start: 12-02-2022 End: 12-02-2022 ambulatory Meng Reid Other [employer] Other Start: 12-02-2022 Telephone encounter Meng Reid [facility] Start: 11-02-2022 End: 11-02-2022 ambulatory Meng Reid Other [employer] Other Start: 11-02-2022 Telephone encounter Meng Reid [facility] Start: 10-27-2022 End: 10-27-2022 ambulatory Meng Reid Other [employer] Other Start: 10-27-2022 Office outpatient vi sit 25 minutes Meng Reid [facility] Start: 10-12-2022 End: 10-12-[address] [facility] Facility: Start: 09-15-2022 End: 09-15-2022 ambulatory Meng Reid Other [employer] Other Start: 09-15-2022 Telephone encounter Meng Reid [facility] Start: 09-08-2022 End: 09-08-2022 Emergency department patient visit [facility] Start: 09-08-2022 End: 09-08-2022 Emergency department patient visit [facility] ED Comment on above: Laceration of forehe ad, initial encounter (Primary Dx); Acute alcoholic intoxication without complication (HCC); Anxiety state Start: 09-01-2022 End: 09-01-2022 ambulatory Meng Reid Other [employer] Other Start: 09-01-2022 Telephone encounter Meng Reid [facility] Start: 08-11-2022 Letter encounter Evelin Rahat do OTR/L Work Phone: [facility] Start: 08-04-2022 End: 08-05-2022 ambulatory [facility] Start: 08-04-2022 End: 08-04-2022 Subsequent hospital visit by physician Lorraine Roland PT [facility] Comment on above: Arrived Start: 07-27-2022 End: 07-27-2022 ambulatory Meng Reid Other [employer] Other Start: 07-27-2022 Office outpatient vi sit 15 minutes Meng Reid [facility] Start: 07-21-2022 End: 07-21-2022 ambulatory MENG PARSONS REID Facility:[facility] Start: 07-21-2022 End: 07-21-2022 Patient encounter procedure Manager [employer] [facility] Work Phone: Cardiology Comment on above: Primary hypertension ; Mixed hyperlipidemia; Coronary artery disease involving apache coronary artery of apache heart without angina pectoris; ST elevation myocardial infarction involving right coronary artery (HCC); S/P right coronary artery (RCA) stent placement Start: 07-16-2022 End: 07-16-2022 ambulatory Meng Ried Other [employer] Other Start: 07-16-2022 Telephone encounter Meng Reid [facility] Start: 07-15-2022 End: 07-15-2022 ambulatory Meng Reid Other [employer] Other Start: 07-15-2022 Telephone encounter Meng Reid [facility] Start: 06-24-2022 End: 06-24-2022 ambulatory Meng Reid Other [employer] Other Start: 06-24-2022 Telephone encounter Meng Reid [facility] Start: 06-10-2022 End: 06-10-2022 ambulatory Meng Reid Other [employer] Other Start: 06-10-2022 Telephone encounter Meng Reid [facility] Start: 05-26-2022 End: 05-26-2022 ambulatory Mneg Reid Other [employer] Other Start: 05-26-2022 Telephone encounter Meng Reid [facility] Start: 05-20-2022 End: 05-20-2022 ambulatory Meng Reid Other [employer] Other Start: 05-20-2022 Telephone encounter Meng Reid [facility] Start: 05-18-2022 End: 05-18-2022 ambulatory Meng Reid Other [employer] Other Start: 05-18-2022 Telephone encounter Meng Reid [facility] Start: 05-14-2022 End: 05-14-2022 ambulatory Meng Reid Other [employer] Other Start: 05-14-2022 Telephone encounter Meng Reid [facility] Start: 05-13-2022 End: 05-13-2022 Patient encounter procedure Jazmine Rafa Estrella DO Work Phone: Cardiology Comment on above: Coronary artery dise ase involving apache coronary artery of apache heart without angina pectoris (Primary Dx); Primary hypertension; Mixed hyperlipidemia; ST elevation myocardial infarction involving right coronary artery (HCC); S/P right coronary artery (RCA) stent placement Start: 05-13-2022 End: 05-13-2022 ambulatory MENGChantelle MATHEWS Facility:[facility] Start: 05-04-2022 End: 05-04-2022 ambulatory Mengchantelle FlorReid Other [employer] Other Start: 05-04-2022 Office outpatient vi sit 25 minutes Meng Reid [facility] Start: 05-04-2022 Telephone encounter Mengchantelle FlorReid [facility] Start: 04-13-2022 End: 04-13-2022 ambulatory Mengchantelle FlorReid Other [employer] Other Start: 04-13-2022 Telephone encounter Mengchantelle FlorReid [facility] Start: 04-05-2022 End: 04-05-2022 ambulatory Meng Reid Other [employer] Other Start: 04-05-2022 Telephone encounter Mengchantelle FlorReid [facility] Start: 03-25-2022 End: 03-25-2022 ambulatory Meng Reid Other [employer] Other Start: 03-25-2022 Telephone encounter Mengchantelle FlorReid [facility] Start: 03-23-2022 End: 03-23-2022 Emergency department patient visit MENG MATHEWS [facility] Start: 03-23-2022 End: 03-23-2022 Emergency department patient visit Vicki Devi DO Work Phone: [facility] ED Comment on above: Lumbar herniated dis c (Primary Dx); Injury of head, initial encounter; Cervical sprain, initial encounter; Sprain of right shoulder, unspecified shoulder sprain type, initial encounter Start: 02-15-2022 ambulatory Master allen: Start: 02-02-2022 End: 02-02-2022 ambulatory Meng Reid Other [employer] Other Start: 02-02-2022 Telephone encounter Meng Reid [facility] Start: 01-28-2022 End: 01-28-2022 ambulatory Meng Reid Other [employer] Other Start: 01-28-2022 Telephone encounter Meng Reid [facility] Start: 01-27-2022 End: 01-27-2022 ambulatory Meng Reid Other [employer] Other Start: 01-27-2022 Office outpatient vi sit 25 minutes Meng Reid [facility] Start: 01-21-2022 End: 01-21-2022 ambulatory Meng Reid Other [employer] Other Start: 01-21-2022 Telephone encounter Meng Reid [facility] Start: 01-12-2022 End: 01-12-2022 ambulatory Meng Ried Other [employer] Other Start: 01-12-2022 Telephone encounter Meng Reid [facility] Start: 01-07-2022 End: 01-07-2022 ambulatory Meng Reid Other [employer] Other Start: 01-07-2022 Telephone encounter Meng Reid [facility] Start: 12-21-2021 Rx Renewal Master harvey MD Work Phone: [facility]-[place] 250 DO Work Phone: Start: 12-14-2021 Rx Renewal Master harvey MD Work Phone: [facility]-[place] 250 DO Work Phone: Start: 12-08-2021 End: 12-08-2021 ambulatory Meng Reid Other [employer] Other Start: 12-08-2021 Telephone encounter Meng Reid [facility] Start: 12-02-2021 End: 12-02-2021 Emergency department patient visit MENG M REID [facility] Start: 12-02-2021 End: 12-02-2021 Emergency department patient visit Karuna Shin MD Work Phone: [facility] ED Comment on above: Contusion of right k nee, initial encounter (Primary Dx); Acute pain of right knee Start: 11-11-2021 End: 11-11-2021 ambulatory Meng Reid Other [employer] Other Start: 11-11-2021 Telephone encounter Meng Reid [facility] Start: 11-09-2021 End: 11-09-2021 ambulatory Meng Reid Other [employer] Other Start: 11-09-2021 Telephone encounter Meng Reid [facility] Start: 11-03-2021 End: 11-03-2021 ambulatory Meng Reid Other [employer] Other Start: 11-03-2021 Telephone encounter Meng Reid [facility] Start: 10-28-2021 End: 10-28-2021 ambulatory Meng Reid Other [employer] Other Start: 10-28-2021 Office outpatient vi sit 25 minutes Meng Reid [facility] Start: 10-23-2021 End: 10-23-2021 Emergency department patient visit MENG M REID [facility] Start: 10-23-2021 End: 10-23-2021 Emergency department patient visit Elijah Walker Work Phone: [facility] ED Comment on above: Closed head injury, initial encounter (Primary Dx); Lumbar transverse process fracture, closed, initial encounter (HCC) Start: 09-23-2021 End: 09-23-2021 Emergency department patient visit [facility] Start: 09-23-2021 End: 09-23-2021 Emergency department patient visit [facility] ED Comment on above: Contusion of right h and, initial encounter (Primary Dx) Start: 09-11-2021 End: 09-11-2021 ambulatory Mneg Reid Other [employer] Other Start: 09-11-2021 Telephone encounter Meng Reid [facility] Start: 09-08-2021 End: 09-08-2021 Emergency department patient visit [facility] Start: 09-08-2021 End: 09-08-2021 Emergency department patient visit Tariq Gonzalez MD Work Phone: [facility] ED Comment on above: Chest pain, unspecif ied type (Primary Dx) Start: 08-26-2021 End: 08-26-2021 ambulatory Meng Reid Other [employer] Other Start: 08-26-2021 Telephone encounter Meng Reid [facility] Start: 08-13-2021 End: 08-13-2021 ambulatory Meng Reid Other [employer] Other Start: 08-13-2021 Telephone encounter Meng Reid [facility] Start: 08-03-2021 End: 08-03-2021 Patient encounter procedure Crissy Mccain [facility] Start: 07-24-2021 End: 07-24-2021 ambulatory Meng Reid Other [employer] Other Start: 07-24-2021 Telephone encounter Meng Reid [facility] Start: 07-10-2021 End: 07-10-2021 ambulatory Meng Reid Other [employer] Other Start: 07-10-2021 Telephone encounter Meng Reid [facility] Start: 07-01-2021 End: 07-01-2021 Emergency department patient visit [facility] Start: 07-01-2021 End: 07-01-2021 Emergency department patient visit Karuna Shin MD Work Phone: [facility] Comment on above: Encounter for post s urgical wound check (Primary Dx) Start: 06-23-2021 End: 06-23-2021 ambulatory Meng Reid Other [employer] Other Start: 06-23-2021 Office outpatient vi sit 25 minutes Meng Reid [facility] Start: 06-23-2021 Telephone encounter Meng Reid [facility] Start: 06-19-2021 End: 06-19-2021 Emergency department patient visit [facility] Start: 06-18-2021 End: 06-21-2021 Emergency department patient visit [facility] Start: 06-18-2021 End: 06-18-2021 Emergency department patient visit Vicki Devi DO Work Phone: [facility] Comment on above: Scrotal wall abscess (Primary Dx) Start: 05-15-2021 End: 05-15-2021 Emergency department patient visit [facility] Start: 02-24-2021 End: 02-24-2021 Emergency department patient visit Pj Werner MD Work Phone: [facility] Comment on above: Hemoptysis (Primary Dx); Chest pain, unspecified type; Shortness of breath Start: 01-24-2021 End: 01-24-2021 Emergency department patient visit Meng Mathews [facility] Start: 11-08-2020 End: 11-08-2020 Emergency department patient visit Ana Bedoya DO [facility] Comment on above: Sprain of left ankle , unspecified ligament, initial encounter (Primary Dx) Start: 10-24-2020 End: 10-24-2020 Emergency department patient visit Karuna Shin MD Work Phone: [facility] Comment on above: Bronchitis (Primary Dx); Cough; Nasal congestion; Acute frontal sinusitis, recurrence not specified Start: 10-19-2020 End: 10-19-2020 Emergency department patient visit Ana Bedoya [facility] ED Start: 10-15-2020 End: 10-17-2020 Subsequent hospital visit by physician [facility] 1 [facility] Ultrasound Comment on above: Arrived Start: 10-15-2020 End: 10-15-2020 Emergency department patient visit Karuna Shin MD Work Phone: [facility] ED Comment on above: Atypical chest pain (Primary Dx); Abdominal pain, epigastric Start: 08-07-2020 End: 08-07-2020 Emergency department patient visit Pete Lugo Work Phone: [facility] ED Comment on above: Acute otitis externa of right ear, unspecified type (Primary Dx) Start: 04-01-2020 End: 04-01-2020 Emergency department patient visit Uziel Waters Work Phone: [facility] ED Comment on above: Sprain of left foot, initial encounter (Primary Dx) Start: 02-20-2020 End: 02-20-2020 Emergency department patient visit Karuna Shin Work Phone: [facility] Comment on above: Bronchitis (Primary Dx); Syncope and collapse Start: 02-19-2020 End: 02-19-2020 Emergency department patient visit Uziel Waters Work Phone: [facility] ED Comment on above: Bronchitis (Primary Dx); COVID-19 Start: 11-27-2019 End: 11-27-2019 ambulatory UNKNOWN PROVIDER Facility:[facility] Start: 11-01-2019 End: 11-01-2019 Emergency department patient visit Uziel Waters Work Phone: [facility] ED Comment on above: Pain, dental (Primar y Dx) Start: 05-19-2019 End: 05-19-2019 Emergency department patient visit Karuna Shin MD Work Phone: [facility] Comment on above: Status post amputati on (Primary Dx); Finger swelling Start: 04-17-2019 End: 04-17-2019 Emergency department patient visit Cuauhtemoc Mobley [facility] Comment on above: Postoperative pain ( Primary Dx) Start: 04-14-2019 End: 04-14-2019 Emergency department patient visit Ernestina Joseph Work Phone: [facility] Comment on above: Hand pain, right (Pr imary Dx); Essential hypertension; Amputation of finger without complication, subsequent encounter Start: 04-14-2019 End: 04-14-2019 Emergency department patient visit Ernestina Joseph Work Phone: [facility] Comment on above: Finger amputation, t raumatic, initial encounter (Primary Dx); Laceration of left middle finger, foreign body presence unspecified, nail damage status unspecified, sequela Start: 04-13-2019 End: 04-13-2019 Emergency department patient visit Deandre Torres Work Phone: [facility] Comment on above: Strain of right shou lder, initial encounter (Primary Dx) Start: 02-10-2018 End: 02-10-2018 Patient encounter [facility] Procedures Date Procedure Procedure Detail Performing Clinician Start: 02-15-2023 X-ray of lumbar spin e, two or three views DO Meng Reid Work Phone: Start: 01-26-2023 Excision of lumbar intervertebral disc DO Meng Reid Work Phone: Start: 01-26-2023 X-ray of lumbar spin e, single view DO Meng Reid Work Phone: Start: 01-24-2023 Plain chest X-ray DO Se galindo Reid Work Phone: Start: 01-24-2023 MRI of lumbar spine with contrast DO Meng Reid Work Phone: Start: 09-08-2022 Ecg routine ecg w/le ast 12 lds w/i&r Mely O Portman DO Work Phone: Start: 07-21-2022 Echo tthrc r-t 2d w/wom-mode compl spec&colr d Jazmine Estrella DO Work Phone: Start: 05-13-2022 History of placement of stent for coronary artery disease S/P right coronary artery (RCA) stent placement Jazmine Estrella DO Work Phone: Start: 03-23-2022 Basic metabolic pane l calcium total Vicki Devi DO Work Phone: Start: 03-23-2022 Urnls dip stick/tabl et rgnt auto w/o microscopy Vicki Gleasonin DO Work Phone: Start: 03-23-2022 Radiologic exam ches t 2 views Vicki Gleasonin DO Work Phone: Start: 03-23-2022 Radex shoulder compl ete minimum 2 views Vicki Shigrin DO Work Phone: Start: 03-23-2022 End: 03-23-2022 Ct cervical spine w/o contrast material Vicki Gleasonin DO Work Phone: Start: 03-23-2022 Ct head/brain w/o co ntrast material Vicki Gleasonin DO Work Phone: Start: 10-23-2021 Ct abdomen & pelvis w/contrast material Elijah Walker DO Work Phone: Start: 10-23-2021 Ct cervical spine w/ o contrast material Elijah Walker DO Work Phone: Start: 10-23-2021 Ct thorax w/contrast material Elijah Perry [place] DO Work Phone: Start: 10-23-2021 Assay of ethanol Moira Perry [place] DO Work Phone: Start: 10-23-2021 End: 10-23-2021 Comprehensive metabolic panel Elijah Perry [place] DO Work Phone: Start: 10-23-2021 Ecg routine ecg w/le ast 12 lds w/i&r Elijah Perry [place] DO Work Phone: Start: 10-23-2021 Ct head/brain w/o co ntrast material Elijah Perry [place] DO Work Phone: Start: 09-08-2021 Radiologic exam [...] Shin Work Phone: Start: 02-20-2020 Natriuretic peptide Sheldon thompsonir Kip Work Phone: Start: 04-14-2019 Basic metabolic pane l calcium total Federica Strus Work Phone: Start: 04-14-2019 Blood count complete auto&auto difrntl wbc Federica Strus Work Phone: Start: 04-13-2019 Radex shoulder compl ete minimum 2 views Deandre Torres Work Phone: Start: 06-10-2015 I & D perianal abscess Basem Mccain Bypass of stomach Basem Hadd ad Cardiac catheterization Dustin Siegel MD Work Phone: Colonoscopy Master barillas MD Work Phone: Extraction of wisdom tooth M zenaida Siegel MD Work Phone: H/O Spinal surgery Crissy jones hand 1 Crissy Mccain Comment on above: steel plate in hand Hernia repair Master harvey MD Work Phone: History of gastroint estinal tract bypass History of Monica-en-Y gastric bypass DO Meng Mathews Work Phone: History of placement of stent for coronary artery disease Status post insertion of drug eluting coronary artery stent Master Siegel MD Work Phone: History of placement of stent for coronary artery disease S/P right coronary artery (RCA) stent placement Manager [employer] [facility] Work Phone: History of placement of stent for coronary artery disease Hx of heart artery stent DO Meng Reid Work Phone: Operative procedure on hand Master Siegel MD Work Phone: Procedure on back Master duran MD Work Phone: Repair of musculoten dinous cuff of shoulder Master Siegel MD Work Phone: Shoulder region stru cture (body structure) Crissy Mccain Plan of Treatment Date Care Activity Detail Author Start: 08-29-2028 DTaP/Tdap/Td vaccine (2 - Td or Tdap) DTaP/Tdap/Td vaccine (2 - Td or Tdap) [facility] Start: 08-29-2028 DTaP/Tdap/Td vaccine (2 - Td) DTaP/Tdap/Td vaccine (2 - Td) [facility] [place] Start: 08-29-2028 Tetanus vaccination Tetanus (T d or Tdap) [facility] Start: 08-29-2028 Urine microalbumin profile DTAP,TDAP,TD (2 - Td or Tdap) [facility] Start: 2026 Shingles (RZV) Vacci ne (1 of 2) Shingles (RZV) Vaccine (1 of 2) [facility] Start: 01-27-2023 [facility] Start: 01-26-2023 Hospital admission [facility] Start: 01-26-2023 Physical therapy procedure [facility] Start: 01-26-2023 Referral to occupati onal therapist [facility] Start: 01-25-2023 Referral to Shoe Treer [facility] Start: 01-25-2023 Sleep disorder assessment [facility] Start: 01-24-2023 End: 01-24-2023 [facility] Start: 01-24-2023 Consultation [facility] Start: 01-24-2023 Hospital admission [facility] Start: 01-24-2023 Plain chest X-ray XR chest 1V portab le [facility] Start: 01-24-2023 XR Chest Single view [facility] Start: 01-24-2023 Excision of Lumbar Vertebral Disc, Open Approach Excision of Lumbar Vertebral Disc, Open Approach [facility] Start: 01-14-2023 Influenza vaccination C [facility] Start: 12-17-2022 End: 02-16-2023 Hepatic function 2000 panel - Serum or Plasma HEPATIC FUNCTION PNL Lab Routine Mixed hyperlipidemia Expected: 12/17/2022, Expires: 02/16/2023 [facility] Work Phone: Comment on above: Expected: 12/17/2022 , Expires: 02/16/2023 Start: 12-17-2022 End: 02-16-2023 Lipid 1996 panel - Serum or Plasma LIPID PANEL BASIC Lab Routine Mixed hyperlipidemia Expected: 12/17/2022, Expires: 02/16/2023 [facility] Work Phone: Comment on above: Expected: 12/17/2022 , Expires: 02/16/2023 Start: 12-14-2022 Influenza vaccination Flu vacc ine (Season Ended) [facility] [employer] [facility] Start: 09-08-2022 Creatinine measurement Creatinine [facility] Start: 09-08-2022 Potassium [Moles/vol ume] in Serum or Plasma Potassium [facility] Start: 05-24-2022 DIABETES SCREEN DIABETES SCREEN [facility] Start: 05-16-2022 DEPRESSION ASSESSMENT DEPRESSION ASS [facility] Start: 05-14-2022 Creatinine measurement Creatinine mo [facility] Start: 05-14-2022 Potassium monitoring Potassium monit [facility] Start: 02-24-2022 Creatinine measurement Creatinine mo [facility] [employer] Work Phone: Start: 02-24-2022 Potassium monitoring Potassium monit [facility] [employer] Work Phone: Start: 02-13-2022 Influenza vaccination Influenza Vacc ine (#1) [facility] Start: 01-14-2022 Influenza vaccination [facility] Start: 12-14-2021 Influenza vaccination Flu vaccine (# 1) [facility] Start: 05-16-2021 DEPRESSION ASSESSMENT DEPRESSION ASS [facility] Start: 2021 COLOGUARD (FIT-DNA) COLOGUARD (FIT-D NA) [facility] Start: 2021 Colonoscopy COLONOSCOPY [facility] Start: 2021 COLORECTAL CANCER SCREENING COLORECTAL CANCER SCREENING [facility] Start: [address] COLONOGRAPHY [facility] Start: 2021 FECAL OCCULT BLOOD FECAL OCCULT BLOO D [facility] Start: 2021 Screening for malign ant neoplasm of colon [facility] Start: 2021 SIGMOIDOSCOPY SIGMOIDOSCOPY [facility] Start: 01-14-2021 Influenza vaccination [facility] Start: 10-15-2020 Subsequent hospital visit by physician 10/15/2020 Hospital Encounter Radiology Arrived [facility] Comment on above: Arrived Start: 01-15-2020 Influenza vaccination Flu vaccine (# 1) [place] Start: 01-14-2019 Influenza vaccination Flu vaccine (# 1) [place] Start: 05-24-2017 LIPID SCREEN LIPID SCREEN [facility] Start: 2016 Diabetes screen Diabetes screen [place], [place] Start: 2016 Lipid panel Lipid screen [place], [place] Start: 2016 Lipid screen Lipid screen [place], [place] Start: 05-24-2013 Hepatitis B surface antibody level LDL CHOLESTEROL [facility] Start: 2011 Diabetes screen Diabetes screen [facility] Start: 2011 Lipid panel [facility] Start: 1995 Hepatitis A (HAV) Va ccine (optional start 19+ years) Hepatitis A (HAV) Vaccine (optional start 19+ years) [facility] Start: 1994 ANNUAL PCP TEAM PRODUCTION SUPPORT ANALYST MIN DISEASE VISIT ANNUAL PCP TEAM CHRONIC DISEASE VISIT [facility] Start: 1994 BP CONTROLLED (<130/80) BP CONTROLLE D (<130/80) [facility] Start: 1994 Hepatitis C screening [facility] Start: 1994 HEPATITIS C SCREENING HEPATITIS C SC REENING [facility] Start: 1994 HIV SCREENING HIV SCREENING [facility] Start: 1992 COVID-19 Vaccine (1) COVID-19 Vaccin e (1) [facility] Work Phone: Start: 1991 HIV screen HIV screen [place], [place] Start: 1991 HIV screening [facility] Start: 1988 COVID-19 Vaccine (1) COVID-19 Vaccin e (1) [facility] [employer] Phone: Start: 1988 Depression Screen Depression Screen [facility] Start: 1986 Lipid panel [facility] Start: 1982 PNEUMOCOCCAL (1 - PCV) PNEUMOCOCCAL (1 - PCV) [facility] Start: 1982 Pneumococcal 0-64 ye ars Vaccine (1 - PCV) Pneumococcal 0-64 years Vaccine (1 - PCV) [facility] Start: 1982 Pneumococcal 0-64 ye ars Vaccine (1 of 1 - PPSV23) Pneumococcal 0-64 years Vaccine (1 of 1 - PPSV23) [place] Start: 1982 Pneumococcal 0-64 ye ars Vaccine (1 of 2 - PPSV23) Pneumococcal 0-64 years Vaccine (1 of 2 - PPSV23) [facility] Phone: Start: 1981 COVID-19 Vaccine (1) COVID-19 Vaccin e (1) [facility] [employer] Start: 1976 COVID-19 Vaccine (#1) COVID-19 Vacci ne (#1) [facility] [email or web address] [facility] Start: 1976 HEPATITIS B (1 of 3 - 3-dose series) HEPATITIS B (1 of 3 - 3-dose series) [facility] Start: 1976 Hepatitis B vaccination Hepati tis B (HBV) Vaccine (1 of 3 - 3-dose series) [facility] Start: 1976 Hepatitis C screening Hepatitis C sc [facility] Start: 1976 Screening for malign ant neoplasm of colon Colonoscopy [facility] Albumin/Globulin ratio [facility] Anion gap measurement [facility] End: 02-19-2020 [facility] [place] [place] Comment on above: One Time for 1 Occur rences starting 02/19/2020 until 02/19/2020 Once for 1 Occurrenc es starting 02/19/2020 until 02/19/2020 End: 05-13-2023 Echocardiography ECHO Cardiology Routine Primary hypertension Mixed hyperlipidemia Coronary artery disease involving apache coronary artery of apache heart without angina pectoris ST elevation myocardial infarction involving right coronary artery (HCC) S/P right coronary artery (RCA) stent placement 1 Occurrences starting 05/13/2022 until 05/13/2023 [facility] Work Phone: Comment on above: 1 Occurrences starti ng 05/13/2022 until 05/13/2023 EKG 12 Lead EKG 12 Lead ECG Routine 09/08/2022 6:41 PM EDT [facility] [employer] Work Phone: EKG 12 Lead - Chest Pain [place], [place] EKG 12 Lead - Chest Pain EKG 12 Lead - Chest Pain ECG STAT 09/08/2021 9:48 AM EDT [employer] Work Phone: EKG 12 Lead - Chest Pain EKG 12 Lead - Chest Pain ECG STAT 10/23/2021 1:20 PM EDT [facility] [employer] Work Phone: Globulin [Mass/volum e] in Serum [facility] Patient referral [facility] Work Phone: End: 02-20-2020 Protime-INR Protime-INR Lab STAT One Time for 1 Occurrences starting 02/20/2020 until 02/20/2020 [facility] [place] Comment on above: One Time for 1 Occur rences starting 02/20/2020 until 02/20/2020 Protime-INR Protime-INR Lab STAT 02/20/2020 1:26 PM EDT [facility] [place] End: 11-08-2020 XR ANKLE LEFT (MIN 3 VIEWS) XR ANKLE LEFT (MIN 3 VIEWS) Imaging Routine Once for 1 Occurrences starting 11/08/2020 until 11/08/2020 [employer] Work Phone: Comment on above: Once for 1 Occurrenc es starting 11/08/2020 until 11/08/2020 XR ANKLE LEFT (MIN 3 VIEWS) XR ANKLE LEFT (MIN 3 VIEWS) Imaging STAT 11/08/2020 10:03 AM EDT [employer] Work Phone: End: 02-19-2020 XR CHEST PORTABLE XR CHEST PORTABLE Imaging STAT Once for 1 Occurrences starting 02/19/2020 until 02/19/2020 [place] Comment on above: Once for 1 Occurrenc es starting 02/19/2020 until 02/19/2020 XR CHEST PORTABLE XR CHEST PAULINA BLE Imaging STAT 02/19/2020 1:08 PM EDT [facility] [place] End: 04-01-2020 XR FOOT LEFT (MIN 3 VIEWS) XR FOOT LEFT (MIN 3 VIEWS) Imaging Routine Once for 1 Occurrences starting 04/01/2020 until 04/01/2020 [facility] [place] Comment on above: Once for 1 Occurrenc es starting 04/01/2020 until 04/01/2020 XR FOOT LEFT (MIN 3 VIEWS) XR FOOT LEFT (MIN 3 VIEWS) Imaging STAT 04/01/2020 9:23 AM EST [place] End: 04-14-2019 XR HAND RIGHT (2 VIEWS) XR HAND RIGHT (2 VIEWS) Imaging STAT Once for 1 Occurrences starting 04/14/2019 until 04/14/2019 [place] Comment on above: Once for 1 Occurrenc es starting 04/14/2019 until 04/14/2019 XR HAND RIGHT (2 VIEWS) XR HAND RIGHT (2 VIEWS) Imaging STAT 04/14/2019 10:10 AM EST [employer] End: 09-23-2021 XR HAND RIGHT (MIN 3 VIEWS) [employer] Work Phone: Comment on above: Once for 1 Occurrenc es starting 09/23/2021 until 09/23/2021 End: 12-02-2021 XR KNEE RIGHT (MIN 4 VIEWS) OZZ[employer]ALL [email or web address] Work Phone: Comment on above: Once for 1 Occurrenc es starting 12/02/2021 until 12/02/2021 End: 04-01-2020 XR TOE LEFT (MIN 2 VIEWS) XR TOE LEFT (MIN 2 VIEWS) Imaging Routine Once for 1 Occurrences starting 04/01/2020 until 04/01/2020 [employer] Comment on above: Once for 1 Occurrenc es starting 04/01/2020 until 04/01/2020 [facility] Immunizations Immunization Date Immunization Notes Care Provider Lisa to 05-16-2020 influenza, seasonal, injectable Evelin Szado OTR/L Work Phone: [facility] 05-16-2020 influenza virus vaccine, unspecified formulation [facility] 05-30-2019 influenza, injectable, quadrivalent, preservative free Evelin Szado OTR/L Work Phone: [facility] 03-20-2019 influenza, injectable, quadrivalent, contains preservative Meng Reid Other [employer] Other 08-29-2018 tetanus toxoid, reduced diphtheria toxoid, and acellular pertussis vaccine, adsorbed Jazmine Estrella DO Work Phone: [facility] 02-15-2018 influenza, injectable, quadrivalent, contains preservative Meng Reid Other [facility] 01-03-2010 tetanus and diphtheria toxoids, adsorbed, preservative free, for adult use (2 Lf of tetanus toxoid and 2 Lf of diphtheria toxoid) Crissy Waltond [facility] NEGATED: Highlighted row has not occurred!04-29-2016 influenza, injectable, quadrivalent, contains preservative Patient Objection Meng Reid Other [employer] Other Payers Date Payer Category Payer Self-pay [id number] 2020 Medicaid [id number] 2019 Private Health Insurance [id number]. [id number] 2019 Private Health Insurance [facility] [address] [facility] xxxxxxxxx 2019-Present [phone] [address] [place] [address] xxxxxxxxx [id number] 2017 Private Health Insurance MARVIN CAPONE xxxxxxxxxx 2017-Present [phone] [address] [place] [address] xxxxxxxxxx [id number]. [id number] 1976 Unknown [id number] 2.16.840.1.055924.3.579.2. 732 1976 Unknown [id number] 2.16.840.1.637572.3.579.2. 185 1976 Unknown [id number] 2.16.840.1.279628.3.579.2. 185 1976 Unknown [id number] 2.16.840.1.715151.3.579.2. 185 1976 Unknown [id number] 2.16.840.1.894439.3.579.2. 185 1976 Unknown [id number] 2.16.840.1.062220.3.579.2. 185 1976 Unknown [id number] 2.16.840.1.535300.3.579.2. 185 1976 Unknown [id number] 2.16.840.1.869279.3.579.2. 185 1976 Unknown [id number] 2.16.840.1.556249.3.579.2. 185 1976 Unknown [id number] 2.16.840.1.366634.3.579.2. 185 1976 Unknown [id number] 2.16.840.1.293865.3.579.2. 185 1976 Unknown [id number] 2.16.840.1.590762.3.579.2. 182 1976 Unknown [id number] 2.16.840.1.172640.3.579.2. 182 1976 Unknown [id number] 2.16.840.1.729328.3.579.2. 593 1976 Unknown [id number] 2.16.840.1.629156.3.579.2. 356 1976 Unknown [id number] 2.16.840.1.213946.3.579.2. 356 1976 Unknown [id number] 2.16.840.1.225320.3.579.2. 356 1976 Unknown [id number] 2.16.840.1.735708.3.579.2. 356 1976 Unknown [id number] 2.16.840.1.380397.3.579.2. 356 1976 Unknown [id number] 2.16.840.1.189840.3.579.2. 356 1976 Unknown [id number] 2.16.840.1.942174.3.579.2. 1259 1976 Unknown [id number] 2.16.840.1.282874.3.579.2. 1259 1959 Private Health Insurance [id number]. [id number] Private Health Insurance [facility] [id number] Private Health Insurance [facility] [id number] Private Health Insurance [id number] Unknown [employer] Unknown [id number] 2.16.840.1.217130.3.579.2. 531 Unknown [id number] 2.16.840.1.610396.3.579.2. 531 Unknown [id number] 2.16.840.1.249178.3.579.2. 531 Social History Date Type Detail Facility Start: 04-13-2019 End: 05-13-2022 Tobacco smoking status NHIS Current every day smoker [facility] End: 06-17-2019 History of tobacco use Cigarette Smoker [place] Start: 04-13-2019 End: 07-11-2019 Cigarettes smoked current (pack per day) - Reported [facility] Start: 04-13-2019 End: 05-13-2022 Alcohol intake Current non-drinker of alcohol (finding) [place] Start: 1975 Sex Assigned At Not on file M [place] Start: 07-03-2019 End: 02-19-2020 Tobacco use and exposure Never used [place] Start: 08-29-2021 End: 12-02-2021 Exposure to SARS-CoV-2 (event) Not sure [place] Exposure to SARS-CoV -2 (event) Unable to assess [place] Start: 10-15-2020 End: 03-23-2022 Alcohol intake Current drinker of alcohol (finding) [employer] Work Phone: Start: 10-26-2020 Alcohol Comment socail [employer] Work Phone: Start: 07-03-2019 End: 02-24-2021 Tobacco smoking status NHIS Former smoker [employer] Start: 06-24-2021 Tobacco smoking status Heavy t obacco smoker (finding) [facility] Start: 07-11-2019 End: 05-13-2022 Sex Assigned At Male [facility] [employer] Other Start: 09-08-2021 History SDOH Alcohol Comment social [employer] Work Phone: Start: 01-24-2023 End: 01-26-2023 History of tobacco use Current sm[facility] Start: 07-11-2019 Alcohol intake [facility] (finding[facility] Caleb Garciai c Start: 1975 Sex Assigned At Male [facility] Medical Equipment Procedure Code Equipment Code Equipment Origin al Text Equipment Identifier Dates Qhr-Su-B-Kind Implant - [id number] Start: 11-26-2013 Stent Wallflex 2 3mm 18.5fr Low Profile Permalume 15cm 12cm Esophageal Braid - [id number] Start: 08-06-2017 Drug-eluting coronary artery stent, bcd-pvvtssbzexgxb-gd lymer-coated [id number] [id number] FDA Start: 11-17-2020 Drug-eluting coronary artery stent, uto-tsqtfihhdmmck-ld lymer-coated ()[id number] [id number] FDA Start: 11-17-2020 Drug-eluting coronary artery stent, tsy-qpshlkfamaivk-hn lymer-coated ()[id number] [id number] FDA Start: 11-17-2020 Goals Date Patient Goal Desired Activity /State Functional Status Date Assessment Result Facility 01-27-2023 Functional status Patient at Baseline [facility] Work Phone: 01-25-2023 Functional status Patient at Baseline [facility] Work Phone: Mental Status Date Assessment Result Facility 01-27-2023 Cognitive function Cognitive Sta tus Patient at Baseline [facility] Work Phone: 01-25-2023 Cognitive function Cognitive Sta tus Patient at Baseline [facility] Work Phone: Clinical Notes 04-07-2011 to 06-27-2023 Note Date & Type Note Facility 06-27-2023 Evaluation note Encounter Date Diagnosis Assessment Notes Jun, Anxiety (ICD-10 - F41.9) [facility] Other 01-11-2024 Evaluation note* Encounter Date Diagnosis Assessment Notes Treatment Notes Treatment Clinical Notes May, Anxiety (ICD-10 - F41.9) [facility] Other 12-21-2023 Evaluation note* Encounter Date Diagnosis [...] joint injections in the future if needed [facility] Other 11-20-2023 Evaluation note* Encounter Date Diagnosis Assessment Notes Treatment Notes Treatment Clinical Notes Mar, Failed back syndrome (ICD-10 - M53.9) 47 year old male presents with complaints of low back pain,as well as bilateral lower extremity weakness and fatigue. He notes pain has been present or more than 10 years and is a constant aching pain. He notes having radicular symptoms in 2013, prior to surgery with the [facility]. He denies any recent physical therapy. He [...] negative findings were considered in medical decision-making. [facility] Other 11-20-2023 Evaluation note* Encounter Date Diagnosis Assessment Notes Treatment Notes Treatment Clinical Notes Mar, Anxiety (ICD-10 - F41.9) [facility] Other 11-16-2023 Evaluation note* Encounter Date Diagnosis [...] present. Mar, Lumbar radiculopathy (ICD-10 - M54.16) [facility] Other 10-24-2023 Evaluation note* Encounter Date Diagnosis Assessment Notes Treatment Notes Treatment Clinical Notes Feb, Anxiety (ICD-10 - F41.9) [facility] Other 10-19-2023 Evaluation note* Encounter Date Diagnosis Assessment Notes Treatment Notes Treatment Clinical Notes Feb, Acute sinusitis, unspecified (ICD-10 - J01.90) [facility] Other 09-28-2023 Evaluation note* Encounter Date Diagnosis Assessment Notes Treatment Notes Treatment Clinical Notes Jan, History of lumbar discectomy (ICD-10 - Z98.890) -2 weeks po L4-5 discectomy 01/26/2023, doing well, continues to have spotty neuropathy. -14 nicho removed; healed well -Follow up [address] Chavez [facility] Other 09-26-2023 Evaluation note* Encounter Date Diagnosis Assessment Notes Treatment Notes Treatment Clinical Notes Jan, Chronic gastric ulcer without hemorrhage and without perforation (ICD-10 - K25.7) [facility] Other 09-25-2023 Evaluation note* Encounter Date Diagnosis Assessment Notes Treatment Notes Treatment Clinical Notes Jan, Chronic gastric ulcer without hemorrhage and without perforation (ICD-10 - K25.7) [facility] Other 09-21-2023 Evaluation note* Encounter Date Diagnosis Assessment Notes Treatment Notes Treatment Clinical Notes Jan, Anxiety (ICD-10 - F41.9) [facility] Other 09-14-2023 Progress note Author Master Siegel [facility] January 27, 2023 12:17pm Note Date/Time January 27, 2023 12:17pm [facility] [address] [place] [address] Cardiology Progress Note Signed Patient: Elijah Wylie Jr MR#: [id number] : 1975 Acct:[id number] Age/Sex: 47 / M Adm Date: 3 Loc: 4N Room: 6O5966-5 Type: ADM IN Attending Dr: Nano Gates MD Copies to: ~ Date of Service: 01/27/2023 Subjective Interval history: No cardiac complaint. Remains bradycardic heart rate below 50. No cardiac complication. Underwent surgery yesterday Exam Physical Exam Vital Signs: Temp Pulse Resp BP Pulse Ox O2 Del Method 97.6 F 43 L 16 127/77 97 Room Air 01/27/23 12:01/27/23 12:01/27/23 12:01/27/23 12:01/27/23 12:01/27/23 08:00 Eyes General: appearance normal, both [...] 4. 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 Documented By: Master Siegel MD 01/27/231215 Signed By: <Electronically signed by MD Master Siegel> 01/27/237 [facility] Work Phone: 1(563) 406-791109-14-2023 Progress note Author Nano Gates [facility] January 27, 2023 9:05am Note Date/Time January 27, 2023 9:01am [facility] [address] [place] [address] Hospitalist Progress Note Signed with Addenda Patient: Elijah Wylie Jr MR#: [id number] : 1975 Acct:[id number] Age/Sex: 47 / M Adm Date: 3 Loc: 4N Room: [address] [place] [address] Type: ADM IN Attending Dr: Nano Gates MD Copies to: ~ ADDENDUM1 Patient continues to have bradycardia which is asymptomatic despite holding his calcium derek for 36 hours The plan is to discontinue Cardizem on discharge. His blood pressure is well controlled on lisinopril His blood pressure and heart rate would need to be monitored postdischarge by PCP and/or piece work checker and additional adjustment may be needed. Patient [...] 01/27/23 08:17 01/27/23 08:17 01/27/23 08:17 01/27/23 08:01/27/23 03:20 Narrative: [pt is awake and alert. oriented to place, time and person, no distress HEENT: Grenora conjunctiva and NL buccal mucosa Neck: Supple, [...] signed by Nano Gates MD> 01/27/23 0901 [facility] Work Phone: 1(659) 314-792909-14-2023 Discharge summary Author Phoenix Chavez [facility] January 27, 2023 8:03am Note Date/Time January 27, 2023 8:03am [facility] [address] [place] [address] Discharge Summary Signed Patient: Elijah Wylie Jr MR#: [id number] : 1975 Acct:[id number] Age/Sex: 47 / M Adm Date: 3 Loc: 4N Room: [address] [place] [address]: Nano Gates MD Copies to: [...] % (Auto) 92.3, Lymph % (Auto) 5.1, Greenlee % (Auto) 2.0, Eos % (Auto) 0.0, Baso % (Auto) 0.6, Nucleat RBC Rel Count 0.0, Neut # (Auto) 15.1 H, Lymph # (Auto) 0.8 L, Greenlee # (Auto) 0.3, Eos # (Auto) 0.0, [...] Chavez MD [Active Staff] - Documented By: Phoenxi Chavez MD 01/27/23 08 Signed By: <Electronically signed by MD Phoenix Chavez> 01/27/23 0803 [facility] Work Phone: 1(898) 965-382309-14-2023 Progress note Author Phoenix Chavez [facility] January 27, 2023 7:51am Note Date/Time January 27, 2023 7:51am [facility] [address] [place] [address] Neurosurgery Progress Note Signed Patient: Elijah Wylie Jr MR#: [id number] : 1975 Acct:[id number] Age/Sex: 47 / M Adm Date: 3 Loc: 4N Room: [address] [place] [address] Type: ADM IN Attending Dr: Nano Gates [...] % (Auto) 92.3, Lymph % (Auto) 5.1, Greenlee % (Auto) 2.0, Eos % (Auto) 0.0, Baso % (Auto) 0.6, Nucleat RBC Rel Count 0.0, Neut # (Auto) 15.1 H, Lymph # (Auto) 0.8 L, Greenlee # (Auto) 0.3, Eos # (Auto) 0.0, [...] Status: Acute Documented By: Phoenix Chavez MD 01/27/23749 Signed By: <Electronically signed by MD Phoenix Chavez> 01/27/23750 [facility] Work Phone: 1(329) 308-782209-13-2023 Progress note Author Master Siegel [facility] January 26, 2023 9:35am Note Date/Time January 26, 2023 9:34am [facility] [address] [place] [address] Cardiology Progress Note Signed Patient: Elijah Wylie Jr MR#: [id number] : 1975 Acct:[id number] Age/Sex: 47 / M Adm Date: 3 Loc: Room: [address] [place] [address] Type: ADM IN Attending Dr: Nano Gates [...] By: <Electronically signed by MD Master Siegel> 01/26/2335 [facility] Work Phone: 1(109) [phone] Progress note Author Nano Gates [facility] January 26, 2023 9:25am Note Date/Time January 26, 2023 9:25am [facility] [address] [place] [address] Hospitalist Progress Note Signed Patient: Elijah Wylie Jr MR#: [id number] : 1975 Acct:[id number] Age/Sex: 47 / M Adm Date: 3 Loc: 4N Room: [address] [place] [address] Type: ADM IN Attending Dr: Nano Gates [...] oriented to place, time and person HEENT: Grenora conjunctiva and NL buccal mucosa Neck: Supple, [...] 01/25/23 09:00 01/26/23 09:18 Pantoprazole 40 Mg Tablet. PO 01/25/24 08:59 Not Given BID LINDSEY [...] Gm Tablet PO 01/25/24 00:29 Not Given TID.AC.[facility] A&P - Hospitalist Assessment/Plan (1) Intractable [...] <Electronically signed by Nano Gates MD> 01/26/23924 [facility] Work Phone: 1(485) 523-886209-12-2023 Progress note Author Mendoza Steward [facility] January 25, 2023 4:22pm Note Date/Time January 25, 2023 4:20pm [facility] [address] [place] [address] Anesthesia Progress Note Draft Patient: Elijah Wylie Jr MR#: [id number] : 1975 Acct:[id number] Age/Sex: 47 / M Adm Date: 3 Loc: 4N Room: [address] [place] [address] Type: ADM IN Attending Dr: Nano Gates MD Copies to: ~ Anesthesia Progress Note Narrative Narrative: Patient record reviewed in anticipation of planned Lumbar Discectomy for tomorrow 01-26-[address] Chavez. Patient with a significant h/o sudden cardiac in the event of PA with subsequent stent to RCA. Cardiology assessment/clearance and Echocardiogram appreciated and reviewed. PMHx also significant for Monica-en-Y Gastric bypass surgery, Asthma/Smoker, Anxiety, Depression. No apparent contraindications to proceeding with planned procedure tomorrow. Documented By: Mendoza Steward MD 01/25/23 161 6 Signed By: [facility] Work Phone: 1(208) 402-212809-12-2023 Consult note Author Phoenix Chavez [facility] January 25, 2023 12:19pm Note Date/Time January 25, 2023 12:20pm [facility] [address] [place], [place] [id number] Neurosurgery Consult Note Signed Patient: Elijah Wylie Jr MR#: [id number] : 1975 Acct:[id number] Age/Sex: 47 / M Adm Date: 3 Loc: 4N Room: [address] [place] [address] Type: ADM IN Attending Dr: Nano Gates [...] STEMI with emergent PTCA for this RCA, Lfqv-xp-Gzpcyhwk bypass, chronic back pain, HLD, GERD. Presents to the emergency room with complaints of intractable back and right radicular leg pain. Patient reports about 3 weeks ago he bent over to picker tender a wrench in the yard and felt a ripping feeling in my back right above my butt, like someone stabbing in the back with a knife . He finished working on the engine he was working on this [employer] porch for about 30 minutes after which [...] a microdiscectomy performed by Dr. Glasgow from [place]. Patient denies fevers or, chills, chestpain or shortness of breath. Review of Systems Review of Systems All other systems reviewed & are negative unless noted below or in HPI [facility] Medical History Anxiety Asthma Depression Gastric ulcer [...] (medical ) Social History Comments: live in [facility] Medications and Allergies Allergies cefaclor [From [...] sucralfate 1 gram tablet 1 g PO TID..HS #120 tabs 12/18/20 [Rx Confirmed 01/24/23] montelukast 10 mg tablet 10 mg PO DAILY 01/25/23 [History Confirmed 01/25/23] Exam Physical Exam Vital Signs: Temp Pulse Resp BP Pulse Ox O2 Del Method 98.7 F 44 L 18 107/65 94 L Room Air 01/25/23 03:01/25/23 03:01/25/23 03:01/25/23 03:01/25/23 03:01/25/23 04:00 Narrative: Neurologic: Patient is alert and [...] lumbar spine Motor: Deltoid bicep tricep and county home demonstrator, iliopsoas quadricep anterior tibial gastrocnemius are grossly [...] Appearance Clear, Urine pH 6.0, Ur Specific Imperial 1.006, Urine Protein Negative, Urine Glucose (UA) Normal, UrineKetones Negative, Urine Occult Blood Negative, Urine Nitrite Negative, Urine Bilirubin Negative, Urine Urobilinogen Normal, Ur Leukocyte Esterase Negative 01/24/23 21:55: PT 11.9, INR 1.0, APTT 31.6 01/24/23 21:55: PHA Creatinine Clear 142.54, Sodium 137, Potassium 3.7, [id number], Carbon Dioxide 25.0, Anion Gap 11.7, BUN [...] % (Auto) 57.7, Lymph % (Auto) 30.9, Greenlee % (Auto) 5.3, Eos % (Auto)4.9, Baso % (Auto) 1.2, Nucleat RBC Rel Count 0.2, Neut # (Auto) 5.3, Lymph # (Auto) 2.9, Greenlee # (Auto) 0.5, Eos # (Auto) 0.5 [...] signed by MD Phoenix Chavez> 01/25/23 1219 [facility] Work Phone: 1(120) [phone] Consult note Author Master Siegel [facility] January 25, 2023 10:58am Note Date/Time January 25, 2023 10:52am [facility] [address] [place] [address] Cardiology Consult Note Signed Patient: Elijah Wylie Jr MR#: [id number] : 1975 Acct:[id number] Age/Sex: 47 / M Adm Date: 3 Loc: Room: [address] [place] [address] Type: ADM IN Attending Dr: Nano Gates MD Copies to: MD Nano Simeon MD Seth Reid,DO~ Cardiology HPI History of Present Illness Consult [...] location he has been following with the [facility]. Has been seeing Dr. Friedman. He report [...] and no additional complaints, except as documented PMFSH Source: Unable to Obtain Medical History Anxiety [...] (medical ) Social History Comments: live in [facility] Medications and Allergies Allergies cefaclor [From [facility]] Adverse Reaction (Verified 01/24/23 21:31) Hives NSAIDS [...] x10E3/uL Lymph # (Auto) 2.9 (1.00-4.8) x10E3/uL Greenlee # (Auto) 0.5 (0.0-0.8) x10E3/uL Eos # [...] echocardiogram Documented By: Master Siegel MD 01/25/23 104 Signed By: <Electronically signed by MD Master Siegel> 01/25/23 1058 [facility] Work Phone: 1(802) 972-578209-12-2023 Progress note Author Nano Gates [facility] January 25, 2023 8:52am Note Date/Time January 25, 2023 8:52am [facility] [address] [place] [address] Hospitalist Progress Note Signed Patient: Elijah Wylie Jr MR#: [id number] : 1975 Acct:[id number] Age/Sex: 47 / M Adm Date: 3 Loc: Room: [address] [place] [address] Type: ADM IN Attending Dr: Nano Gates [...] oriented to place, time and person HEENT: Grenora conjunctiva and NL buccal mucosa Neck: Supple, [...] Gm Tablet PO 01/25/24 00:29 1 gm TID..[facility] Administration A&P - Hospitalist Assessment/Plan (1) Intractable [...] the bedside. Documented By: Nano Gates MD 01/25/2349 Signed By: <Electronically signed by Nano Gates MD> 01/25/23 0852 [facility] Work Phone: 1(546) 849-218109-12-2023 History and physical note Author Huy Dumont [facility] January 25, 2023 12:49am Note Date/Time January 24, 2023 11:36pm [facility] [address] [place] [address] Hospitalist H&P Signed Patient: Elijah Wylie Jr MR#: [id number] : 1975 Acct:[id number] Age/Sex: 47 / M Adm Date: 3 Loc: 4N Room: [address] [place] [address] Type: ADM INOo Attending Dr: Huy Dumont MD Copies to: MD Nohemy Gomez, RICHARD Mathews,DOComfort HPI DATE OF EXAMINATION: 01/24/23 CHIEF COMPLAINT: [...] weeks ago he had bent over to picker tender a wrench in the yard and felt [...] Zofran. He will be admitted to the [facility] telemetry floor under the care of the hospitalist team for further evaluation and treatment. Review of Systems Review of Systems Review of systems: A 10 point review of systems was obtained, negative unless noted in the HPI or below. [facility] Medical History (Updated 01/25/23 @ 00:11 by [...] (medical ) Social History Comments: live in [facility] Medications and Allergies Allergies cefaclor [From [...] % (Auto) 30.9 % (.) 01/24/23 21:55 Greenlee % (Auto) 5.3 % (.) 01/24/23 21:55 Eos % (Auto) 4.9 % (.) 01/24/23 21:55 Baso % (Auto) 1.2 % (.) 01/24/23 21:55 Nucleat RBC Rel Count 0.2 /100 WBC (0-0.5) 01/24/23 21:55 Neut # (Auto) 5.3 x10E3/uL (1.8-7.7) 01/24/23 21:55 Lymph # (Auto) 2.9 x10E3/uL (1.00-4.8) 01/24/23 21:55 Greenlee # (Auto) 0.5 x10E3/uL (0.0-0.8) 01/24/23 21:55 [...] signed by Huy Dumont MD> 01/25/23 0049 [facility] Work Phone: 1(504) 399-294408-24-2023 Evaluation note* Encounter Date Diagnosis Assessment Notes Treatment Notes Treatment Clinical Notes Dec, Anxiety (ICD-10 - F41.9) Dec, Chronic gastric ulcer without hemorrhage and without perforation (ICD-10 - K25.7) [facility] Other 08-04-2023 Miscellaneous Notes* Telephone Encounter - Carlton Mcclure RN - 12/17/2022 10:26 AM EDT Called PT left VM about Please call the patient let him know that he is due for fasting labs to check his cholesterol in 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 If he has had his cholesterol checked in the last year he can provide a copy. Orders placed. * Telephone Encounter - Janae Sandoval APRN.CNP - 12/17/2022 10:11 AM EDT Please call the patient let him know that he is due for fasting labs to check his cholesterol in order to refill this prescription half-way. If he has had his cholesterol checked in the last year hecan provide a copy. Orders placed. The following approved medication requests have been transmitted electronically. Requested Prescriptions Signed Prescriptions Disp Refills atorvastatin (LIPITOR) 80 mg tablet 90 tablet 0 Sig: Take 1 tablet by mouth once daily. Authorizing Provider: JANAE SANDOVAL APRN.KAYDEN * Telephone Encounter - Cielo Mckenna LPN - 12/17/2022 9:32 AM EDT Pt is requesting refills on the following medication. Please file if appropriate. Last OV - 05/13/22 * Telephone Encounter - Naiza Kilgore - 12/17/2022 8:58 AM EDT Pharmacy verified in [facility] Patient has been identified by name and date of : Yes, Provider Dr. Estrella Date 12/17/2022 Time 9:00am Patient requesting a call when RX is approved and sent to the pharmacy. Please call patient at: [phone] Patient phones for refill(s): Requested Prescriptions Pending [...] (242 lb 1.6 oz) Not applicable Please adviseLaura Kilgore documented in this encounterProtestant [facility]acon[facility]08-04-2023 Miscellaneous Notes* Telephone Encounter - Cielo Mckenna LPN - 12/17/2022 9:34 AM EDT This is a duplicate message. Please see 12/17/22 refill encounter. * Telephone Encounter - Marlene Stanford - 12/16/2022 9:35 AM EDT Pharmacy verified in [facility] Patient has been identified by name and [...] (242 lb 1.6 oz) Not applicable Please adviseLaura Stanford documented in this encounterProtestant [facility]acon[facility]07-20-2023 Evaluation note* Encounter Date Diagnosis Assessment Notes Treatment Notes Treatment Clinical Notes Nov, Anxiety (ICD-10 - F41.9) [facility] Other 06-20-2023 Evaluation note* Encounter Date Diagnosis Assessment Notes Treatment Notes Treatment Clinical Notes Oct, Seasonal allergies (ICD-10 - J30.2) Oct, Urinary hesitancy (ICD-10 - R39.11) Oct, Anxiety (ICD-10 - F41.9) [facility] Other 06-14-2023 Evaluation note* Encounter Date Diagnosis [...] states that this has been quite helpful. [facility] Other 05-03-2023 Evaluation note* Encounter Date Diagnosis Assessment Notes Treatment Notes Treatment Clinical Notes September, Anxiety (ICD-10 - F41.9) [facility] Other 03-22-2023 History of Present illness Narrative* Lorraine Roland, PT - 08/04/2022 9:30 AM EDT Images from the original note were not included. FUNCTIONAL CAPACITIES EVALUATION DISABILITY CLIENT: Elijah Estevan Wylie DATE: 08/04/2022 DIAGNOSIS: Unspecified fracture of third lumbar vertebra, initial encounter for closed fracture [S32.039A] Unspecified fracture of second lumbar vertebra, initial encounter for closed fracture [S32.029A] REFERRAL SOURCE: Shanthi Galvan PA PAYMENT SOURCE: Payor: [facility] / Plan: [facility] [place] /Product Type: *No Product type* [...] his back in October 2021 when a lawn mower sharpener flipped over on him. Client reports his back hasn't been the same since. He see's an ortho doctor though is being referred for a seocnd opinion with a back specialist. He also has a referral from neurologist to pain management though has not seen pain management yet. Client also reports having a PMH ofCVA and PA in November 2020. He does have limited [...] mouth daily vitamin D (ERGOCALCIFEROL) 1.25 MG (20672 UT) CAPS capsule Take 50,000 Units by [...] for this encounter. 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 Abdominals: 1/5 Extensors: 3/5 Physical Security Engineer Strength (pounds) Physical Security Engineer Setting Right Norm Left Norm #1 45 30 #2 80 Male age 45-49: 103 lbs 90 Male age 45-49: 95 lbs #3 95 105 #4 80 90 #5 70 85 Average 74 80 [employer] Physical Security Engineer: Right: 85 lbs. Left: 80 lbs. Interpretation: [...] Comments: Client did demonstrate maximal effort with county home demonstrator and pinch testing. COORDINATION/DEXTERITY Test Right Norm [...] able to follow directions, verbalize concerns Good county home demonstrator and pinch strength Good upper extremity range of motion and flexibility Good upper and lower extremity strength PROBLEMS INTERFERING WITH VOCATIONAL PERFORMANCE Decreased workplace tolerance Decreased trunk strength Decreased lower extremity range of motion Decreased trunk motion Decreased lift and carry tolerance Decreased knowledge and application of body mechanics with lifting tasks Decreased standing tolerance Decreased sitting tolerance Decreased county home demonstrator and pinch strength Decreased knowledge of coping [...] 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 Recommendations: It is further recommended that client follow up with MD as well as pain managementas referred by neurologist in order to manage chronic back pain and impairments. It is also recommended that client f/u with orthopedics for ongoing impairments in regards to old lumbar fracture. PT Individual Minutes Time In: 0935 Time Out: 1030 Minutes: 55 Timed Code Treatment Minutes: 55 Minutes Plan of Care: Goals Current/ Discharge status Status STG 1: Complete FCE to determine abilities FCE completed this date Met PLAN: Discharge, Recommend pt follow up with MD. Therapist Signature Industrial Rehabilitation Physician Signature documented in this encounterBON LogicLibrary Phone: 1(109) [phone] Evaluation note* Encounter Date Diagnosis Assessment Notes Treatment Notes Treatment Clinical Notes Jul, Acute sinusitis, unspecified (ICD-10 - J01.90) eRX sent. Pt to call with results. [facility] Other 03-08-2023 Nurse Note* Migdalia Mitchell RN - 07/21/2022 10:06 AM EST IV Access: IV IV Site: left Antecubital IV GAUGE 24 gauge IV Removal Date 07/21/2022 Time 10:00am Reactions: WNL Order reviewed by nurse:yes Medications: Definity - dosage 1.5cc diluted IVP Reaction: No LOT: [id number] EXP: 11/13/2022 [facility] #[id number] MFG: [employer] documented in this encounterProtestant Deaconess [facility]03-02-2023 Evaluation note* Encounter Date Diagnosis Assessment Notes Treatment Notes Treatment Clinical Notes Jul, Anxiety (ICD-10 - F41.9) Jul, Chronic gastric ulcer without hemorrhage and without perforation (ICD-10 - K25.7) [facility] Other 02-09-2023 Evaluation note* Encounter Date Diagnosis Assessment Notes Treatment Notes Treatment Clinical Notes Jun, Anxiety (ICD-10 - F41.9) [facility] Other 01-26-2023 Evaluation note* Encounter Date Diagnosis Assessment Notes Treatment Notes Treatment Clinical Notes May, Anxiety (ICD-10 - F41.9) [facility] Other 01-03-2023 Evaluation note* Encounter Date Diagnosis Assessment Notes Treatment Notes Treatment Clinical Notes May, Seasonal allergies (ICD-10 - J30.2) [facility] Other 12-30-2022 Evaluation note* Encounter Date Diagnosis Assessment Notes Treatment Notes Treatment Clinical Notes Apr, Urinary hesitancy (ICD-10 - R39.11) [facility] Other 12-29-2022 NoteHNO ID: [id number] Author: Jazmine Estrella, DO Service: ? Author Type: Physician Type: Progress Notes Filed: 05/13/2022 4:35 PM Note Text: [facility] SECTION OF [facility] OUTPATIENT VISIT DATE May 13, 2022 PRIMARY CARE PHYSICIAN: Meng Mathews [address] [place] [address] [address] [place] [address] HISTORY OF PRESENT ILLNESS: Mr. Wylie is a 47 year old male. The [facility] to history of coronary disease status post stenting of his right coronary artery x3 in the setting of acute inferior wall myocardial infarction in November 2020. Since that time he has been plagued by degenerative disc disease with now chronic back discomfort. He unfortunately has apparently had challenges with intermittent loss of visits with his piece work checker. He apparently had some challenges as well [...] grown children. 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 He smokes a pack [...] for arthralgias and myalgias. (more content not included)...[facility]12-29-2022 History of Present illness Narrative* Jazmine Estrella, DO - 05/13/2022 2:42 PM EST Images from the original note were not included. [facility] OUTPATIENT VISIT DATE May 13, 2022 PRIMARY CARE PHYSICIAN: Meng Mathews [address] [place] [address] HISTORY OF PRESENT ILLNESS: Mr. 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 He apparently had some challenges as well [...] grown children. 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 He smokes a pack [...] 1,000 mg by mouth once daily. ECG: HERMAN Estrella DO, FACC, FACOI Clinical and Preventive Cardiology Department of Medicine and Division of Cardiology, [facility] Power Plant Operations Managerlanding support specialist [facility] Power Plant Operations Manager of Congestive Heart Failure Clinic [facility] Cardiology Office Power Plant Operations Manager [facility] Staff Brass Burnisher, Alexi De La Fuente Department of Cardiovascular Medicine/[facility] [place], [facility] Clinical Taxi Dancer Profressor of Medicine, [facility] of Medicine - [facility] Please note: This note has been produced using speech recognition software and may contain errors related to that system including charlene, punctuation, spelling, words, gender and phrases that may be inappropriate. documented [facility]* Encounter Date Diagnosis Assessment Notes Treatment Notes Treatment Clinical Notes Apr, Chronic cough (ICD-10 - R05.3) [facility] Other 12-20-2022 Evaluation note* Encounter Date Diagnosis [...] if he is actually taking that medication. [facility] Other 11-29-2022 Evaluation note* Encounter Date Diagnosis Assessment Notes Treatment Notes Treatment Clinical Notes Mar, Anxiety (ICD-10 - F41.9) [facility] Other 11-21-2022 Evaluation note* Encounter Date Diagnosis Assessment Notes Treatment Notes Treatment Clinical Notes Mar, Chronic gastric ulcer without hemorrhage and without perforation (ICD-10 - K25.7) [facility] Other 11-10-2022 Evaluation note* Encounter Date Diagnosis Assessment Notes Treatment Notes Treatment Clinical Notes Mar, Chronic gastric ulcer without hemorrhage and without perforation (ICD-10 - K25.7) [facility] Other 09-14-2022 Evaluation note* Encounter Date Diagnosis [...] simply continue to monitor at his request. [facility] Other 09-08-2022 Evaluation note* Encounter Date Diagnosis Assessment Notes Treatment Notes Treatment Clinical Notes Jan, Closed fracture of second lumbar vertebra, unspecified fracture morphology, initial encounter (ICD-10 - S32.029A) [facility] Other 08-30-2022 Evaluation note* Encounter Date Diagnosis Assessment Notes Treatment Notes Treatment Clinical Notes Dec, Anxiety (ICD-10 - F41.9) [facility] Other 08-25-2022 Evaluation note* Encounter Date Diagnosis Assessment Notes Treatment Notes Treatment Clinical Notes Dec, Anxiety (ICD-10 - F41.9) [facility] Other 07-26-2022 Evaluation note* Encounter Date Diagnosis Assessment Notes Treatment Notes Treatment Clinical Notes Nov, Anxiety (ICD-10 - F41.9) [facility] Other 06-29-2022 Evaluation note* Encounter Date Diagnosis Assessment Notes Treatment Notes Treatment Clinical Notes Oct, Closed fracture of second lumbar vertebra, unspecified fracture morphology, initial encounter (ICD-10 - S32.029A) [facility] Other 06-27-2022 Evaluation note* Encounter Date Diagnosis Assessment Notes Treatment Notes Treatment Clinical Notes Oct, Anxiety (ICD-10 - F41.9) [facility] Other 06-15-2022 Evaluation note* Encounter Date Diagnosis [...] insurance - call if needs/desires formal referral. [facility] Other 06-10-2022 Reason for visit Narrative3 month f/u and discuss referral for back pain, Fractured L2, L3 and L4 - found on CT - lawnmower accident, ER in [place] - 10/23 -[facility] Other 04-29-2022 Evaluation note* Encounter Date Diagnosis Assessment Notes Treatment Notes Treatment Clinical Notes Aug, Anxiety (ICD-10 - F41.9) [facility] Other 04-26-2022 Hospital Discharge instructions* Instructions* Tariq Gonzalez MD - 09/08/2021 RETURN FOR NEW OR WORSENING SYMPTOMS. FOLLOW UP WITH YOUR INSURANCE PROFESSIONAL IN 2-3 DAYS. * Attachments The following attachments cannot be sent through Care Everywhere. * Chest Pain (Turkmen) documented in this [facility] Work Phone: [phone] 194-919004-13-2022 Evaluation note* Encounter Date Diagnosis Assessment Notes Treatment Notes Treatment Clinical Notes Aug, Acute gastric ulcer with hemorrhage (ICD-10 - K25.0) [facility] Other 03-31-2022 Evaluation note* Encounter Date Diagnosis Assessment Notes Treatment Notes Treatment Clinical Notes Jul, Anxiety (ICD-10 - F41.9) [facility] Other 02-25-2022 Evaluation note* Encounter Date Diagnosis Assessment Notes Treatment Notes Treatment Clinical Notes Jun, Anxiety (ICD-10 - F41.9) Jun, Chronic gastric ulcer without hemorrhage and without perforation (ICD-10 - K25.7) [facility] Other 02-16-2022 Hospital Discharge instructions* Instructions* Karuna Shin MD - 07/01/2021 Healing very satisfactory continue present antibiotic and finish the course follow-up with your urologist in 5 to 7 days time * Attachments The following attachments cannot be sent through Care Everywhere. * Wound Check (Turkmen) documented in this [facility] Work Phone: [phone] 402-861202-08-2022 Evaluation note* Encounter Date Diagnosis Assessment Notes [...] he has to go through the ER. [facility] Other 02-01-2014 History general Narrative - Reported* Type Description Date Medical History HTN Medical History HyperChol Medical History Stomach Ulcer - 06/2013 and 08/02 17 Medical History PA 11-17-2020 Medical History CAD - 11/2020 Surgical History double hernia infant Surgical History Right 5th digit 1996 Surgical History gastric bypass 03/2011 Surgical History EGD 01/2018 Surgical History L spine surgery 11/2014 Surgical History Cardiac stenting X 3 right coronary artery 11/2020 Hospitalization History sepsis/ruptured peptic u lcer 07/2017 Hospitalization History [facility] - ulcers 07/2018 Hospitalization History [facility] 11/17/2020 - 11/22/2020 [facility] Other 02-01-2014 History general Narrative - Reported* Type Description Date Medical History HTN Medical History HyperChol Medical History Stomach Ulcer - 06/2013 and 08/02 17 Medical History PA 11-17-2020 Medical History CAD - 11/2020 Medical History CVA 11/2020 Surgical History double hernia infant Surgical History Right 5th digit 1996 Surgical History gastric bypass 03/2011 Surgical History EGD 01/2018 Surgical History L spine surgery 11/2014 Surgical History Cardiac stenting X 3 right coronary artery 11/2020 Hospitalization History sepsis/ruptured peptic u lcer 07/2017 Hospitalization History [facility] - ulcers 07/2018 Hospitalization History [facility] 11/17/2020 - 11/22/2020 [facility] Other 02-01-2014 History general Narrative - Reported* Type Description Date Medical History HTN Medical History HyperChol Medical History Stomach Ulcer - 06/2013 and 08/02 18 Medical History PA 11-17-2020 Medical History CAD - 11/2020 Medical [...] History [facility] - ulcers 07/2018 Hospitalization History [facility] 11/17/2020 - 11/22/2020 Hospitalization History lumbar back surgery 01/15 023 [facility] Other 02-01-2014 History general Narrative - Reported* Type Description Date Medical History HTN Medical History HyperChol Medical History Stomach Ulcer - 06/2013 and 08/02 18 Medical History PA 11-17-2020 Medical History CAD - 11/2020 Medical History CVA 11/2020 Surgical History double hernia Surgical History Right 5th digit 1996 Surgical History gastric bypass 03/2011 Surgical History EGD 01/2018 Surgical History L spine surgery 11/2014 Surgical History Cardiac stenting X 3 right coronary artery 11/2020 Surgical History lumbar back [id number] disc 0 01/2023 Hospitalization History sepsis/ruptured peptic u lcer 07/2017 Hospitalization History [facility] - ulcers 07/2018 Hospitalization History [facility] 11/17/2020 - 11/22/2020 Hospitalization History lumbar back surgery 01/15 023 Hospitalization History see above surg. hx. [facility] Other 11-23-2011 History of Past illness Narrative* Problem Noted Date Resolved Date Obesity, morbid 04/07/2011 05/25/2012 documented as of this encounter (statuses as of 05/19/2022) [facility]11-23-2011 History of Past illness Narrative* Problem Noted Date Resolved Date Obesity, morbid 04/07/2011 05/25/2012 documented as of this encounter (statuses as of 07/21/2022) [facility]11-23-[facility] History of Past illness Narrative* Problem Noted Date Diagnosed Date Resolved Date Obesity, morbid 04/07/2011 05/25/2012 documented as of this encounter (statuses as of 12/17/2022) [facility] History of Past illness Narrative* Problem Noted Date Diagnosed Date Resolved Date Obesity, morbid 04/07/2011 05/25/2012 documented as of this encounter (statuses as of 12/17/2022) [facility] No data available for this section [facility]* Diagnosis Atypical chest pain- Primary Other chest pain Abdominal pain, epigastric documented in this encounter [employer] Phone: evaluation note* Diagnosis Bronchitis- Primary Bronchitis, not specified as acute or chronic Cough Nasal congestion Other diseases of nasal cavity and sinuses Acute frontal sinusitis, recurrence not specified documented in this encounter [employer] Phone: evaluation note* Diagnosis Sprain of left ankle, unspecified ligament, initial encounter- Primary documented in this encounter [employer] Phone: [email or web address] note* Diagnosis Hemoptysis- Primary Hemoptysis, unspecified Chest pain, unspecified type Shortness of breath documented in this encounter [employer] Phone: [email or web address] note* Diagnosis Scrotal wall abscess- Primary Other inflammatory disorder of male genital organs documented in this encounter [employer] Phone: evaluation note* Diagnosis Encounter for post surgical wound check- Primary documented in this encounter [employer] Phone: evalpslwgt note* Diagnosis Status post amputation- Primary Other problems of limbs Finger swelling Swelling of limb documented in this encounter [employer] Phone: [email or web address] note* Diagnosis Chest pain, unspecified type- Primary documented in this encounter [employer] Phone: [email or web address] note* Diagnosis Contusion of right hand, initial encounter- Primary documented in this encounter [employer] Phone: [email or web address] note* Diagnosis Closed head injury, initial encounter- Primary Lumbar transverse process fracture, closed, initial encounter ([facility]) documented in this encounter [employer] Phone: [email or web address] noteNo [facility] [employer] Other Evaluation note* Diagnosis Contusion of right knee, initial encounter- Primary Acute pain of right knee documented in this encounter [employer] Phone: evalgptnix note* Diagnosis Lumbar herniated disc- Primary Displacement of lumbar intervertebral disc without myelopathy Injury of head, initial encounter Cervical sprain, initial encounter Sprain of right shoulder, unspecified shoulder sprain type, initial encounter documented in this encounter [employer] Phone: evalmbcahh note* Diagnosis Coronary artery disease involving apache coronary artery of apache heart without angina pectoris- Primary Primary hypertension Unspecified essential hypertension Mixed hyperlipidemia ST elevation myocardial infarction involving right coronary artery (HCC) Acute myocardial infarction of inferoposterior wall, initial episode of care S/P right coronary artery (RCA) stent placement [facility] encounter [facility] Diagnosis Primary hypertension Unspecified essential hypertension Mixed hyperlipidemia Coronary artery disease involving apache coronary artery of apache heart without angina pectoris ST elevation myocardial infarction involving right coronary artery (HCC) Acute myocardial infarction of inferoposterior wall, initial episode of care S/P right coronary artery (RCA) stent placement [facility] this encounter [facility]* Diagnosis Laceration of forehead, initial encounter- Primary Acute alcoholic intoxication without complication (HCC) Anxiety state Anxiety state, unspecified documented in this encounter [employer] Phone: evallseedj note* Diagnosis Mixed hyperlipidemia- Primary documented in this encounter [facility]* Diagnosis Onset Date Resolution Status Anxiety acute Bradycardia, sinus acute Bulging discs acute Intractable back pain acute Radiculopathy acute [facility] Work Phone: Evaluation note* Diagnosis Onset Date Resolution Status Acute right lumbar radiculopathy acute Anxiety acute Bradycardia, sinus acute Bulging discs acute CAD (coronary artery disease) acute HTN (hypertension) acute Intractable back pain acute Lumbar herniated disc acute Presence of stent in coronary artery acute Radiculopathy acute [facility] Work Phone: Evaluation note* Diagnosis Onset Date Resolution Status Acute right lumbar radiculopathy acute Anxiety acute Bradycardia, sinus acute Bulging discs acute CAD (coronary artery disease) acute HTN (hypertension) acute Intractable back pain acute Lumbar disc herniation with radiculopathy acute Lumbar herniated disc acute Presence of stent in coronary artery acute Radiculopathy acute [facility] Work Phone: Hospital Discharge instructions* Attachments The following attachments cannot be sent through Care Everywhere. * Abdominal Pain (Turkmen) documented in this [employer] Phone: Hospital Discharge instructions* Attachments The following attachments cannot be sent through Care Everywhere. * Sinusitis (Turkmen) * Cough (Turkmen) documented in this [employer] Phone: Hospital Discharge instructions* Attachments The following attachments cannot be sent through Care Everywhere. * Ankle Sprain (Turkmen) documented in this [employer] Phone: Hospital Discharge instructions* Attachments The following attachments cannot be sent through Care Everywhere. * Hemoptysis (Turkmen) * Chest Pain (Turkmen) documented in this [employer] Phone: Hospital Discharge instructions* Attachments The following attachments cannot be sent through Care Everywhere. * Abscess: Skin (Turkmen) [facility]: Hospital Discharge instructions No data available for this section [facility]* Attachments The following attachments cannot be sent through Care Everywhere. * Fingertip: Amputation (Turkmen) documented in this [employer] Phone: Hospital Discharge instructions* Attachments The following attachments cannot be sent through Care Everywhere. * Contusion: Hand (Turkmen) documented in this [employer] Phone: Hospital Discharge instructions* Attachments The following attachments cannot be sent through Care Everywhere. * Spine Fracture (Turkmen) * Head Injury: Closed: General Info (Turkmen) [facility] [employer] Phone: Hospital Discharge instructions* Attachments The following attachments cannot be sent through Care Everywhere. * Contusion (Turkmen) * Knee Pain or Injury (Turkmen) [facility] Phone: Hospital Discharge instructions* Attachments The following attachments cannot be sent through Care Everywhere. * Herniated Disc (Turkmen) * Head Injury: Closed: General Info (Turkmen) * Cervical Strain (Turkmen) * Shoulder Sprain (Turkmen) [facility] Phone: Hospital Discharge instructions* Attachments The following attachments cannot be sent through Care Everywhere. * Lacerations: Adhesives (Turkmen) * Wound Check (Turkmen) * Head Injury: Closed: General Info (Turkmen) * Alcohol Intoxication: Acute (Turkmen) documented in this [facility]BA[facility] Phone: progress note Author Master Siegel [facility] January 27, 2023 12:17pm Note Date/Time January 27, 2023 12:17pm [facility] [address] [place] [address] Cardiology Progress Note Signed Patient: Elijah Wylie Jr MR#: [id number] : 1975 Acct:[id number] Age/Sex: 47 / M Adm Date: 3 Loc: 4N Room: [address] [place] [address] Type: ADM IN Attending Dr: Nano Gates [...] 4. 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 Documented By: Master Siegel MD 01/27/23 1216 Signed By: <Electronically signed by MD Master Siegel> 01/27/23 1217 [facility] Work Phone: Reason for referral (narrative)* Outpatient Procedure (Routine) - Authorized Specialty Diagnoses / Procedures Referred By Contac t Referred To Contact [facility] Diagnoses Primary hypertension Mixed hyperlipidemia Coronary artery disease involving apache coronary artery of apache heart without angina pectoris ST elevation myocardial infarction involving right coronary artery (HCC) S/P right coronary artery (RCA) stent placement Procedures ECHO ECHO TTHRC R-T 2D W/WOM-MODE COMPL SPEC&COLR D Jazmine Estrella DO [address] [place] [address] [facility] [place] [address] [place] [id number] Referral ID Status Reason Start Date Expiration Date Visits Requested Visits Authorized [id number] Authorized Auto-Generat ed Referral 05/13/2023 1 1 * Outpatient Procedure (Routine) - Closed Specialty Diagnoses / Procedures Referred By Contac t Referred To Contact [facility] [place] Diagnoses Primary hypertension Mixed hyperlipidemia Coronary artery disease involving apache coronary artery of apache heart without angina pectoris ST elevation myocardial infarction involving right coronary artery (HCC) S/P right coronary artery (RCA) stent placement Procedures ECG COMPLETE ECG ROUTINE ECG W/LEAST 12 LDS W/I&R Jazmine Estrella DO [address] [place] [address] [address] Referral ID Status Reason Start Date Expiration Date V isits Requested Visits Authorized [id number] Closed Auto-Generate d Referral 05/13/2022 05/13/2023 1 1 [facility] for visit Narrative* Outpatient Procedure (Routine) - Closed Specialty Diagnoses / Procedures Referred By Contac t Referred To Contact [facility] [place] Diagnoses Primary hypertension Mixed hyperlipidemia Coronary artery disease involving apache coronary artery of apache heart without angina pectoris ST elevation myocardial infarction involving right coronary artery (HCC) S/P right coronary artery (RCA) stent placement Procedures ECHO ECHO TTHRC R-T 2D W/WOM-MODE COMPL SPEC&COLR Jazmine Wilkins DO [address] [place] [address] [facility] [address] [place] [id number] Referral ID Status Reason Start Date Expiration Date V isits Requested Visits Authorized [id number] Closed Auto-Generate d Referral 05/13/2022 05/13/2023 1 1 [facility] Summary Purpose Family History Unknown Family Member Name Dates Details Family history of myocardial infarction: Father(V17.3, Z82.49) Status:Active Unknown Family Member Name Dates Details Family history of myocardial infarction: Father(V17.3, Z82.49) Status:Active Relationship Condition Age at Onset Recorded Date/T nathan father Myocardial infarction Unknown Advance Directives Documents on File Type Date Recorded Patient Health Care Recruiter Expl anation Advance Directives and Living Will Power of Corporate Development Manager Documents on File Type Date Recorded Patient Health Care Recruiter Expl anation ACP-Advance Directive ACP-Power of Corporate Development Manager Healthcare Agents on File Name Relationship Healthcare [...] Date/ Time Advance Directives No November 17 7:54pm Discharge Instructions * Attachments The following attachments cannot be sent through Care Everywhere. * Shoulder Arthritis: Exercises (Turkmen) * Shoulder Sprain (Turkmen) documented in this encounter* Attachments The following attachments cannot be sent through Care Everywhere. * Fingertip: Amputation (Turkmen) * Pain Post-Surgery: Acute (Turkmen) documented in this encounter* Attachments The following attachments cannot be sent through Care Everywhere. * Coronavirus Disease (COVID-19): General Info (Turkmen) * Coronavirus Disease (COVID-19): Isolation (Turkmen) * Bronchitis (Turkmen) documented in this encounter* Attachments The following attachments cannot be sent through Care Everywhere. * Bronchitis: Chronic: General Info (Turkmen) * Vasovagal Syncope (Turkmen) documented in this encounter* Attachments The following attachments cannot be sent through Care Everywhere. * Foot Sprain (Turkmen) documented in this encounter* Instructions* Pete Lugo MD - 08/07/2020 Please take antibiotics as prescribed . return to the Emergency Department immediately if you develop worsening symptoms, or you have any other concerns. Please follow up with your family doctor in 1-2 days. * Attachments The following attachments cannot be sent through Care Everywhere. * Otitis Externa (Turkmen) documented in this encounter* Attachments The following attachments cannot be sent through Care Everywhere. * Hypertension: General Info (Turkmen) documented in this encounter* Attachments The following attachments cannot be sent through Care Everywhere. * Tooth and Gum Pain (Turkmen) documented in this encounter Assessments Diagnosis Strain [...] Starting on Malini 05/13/22 at 1513, Until Tue07/21/22 at 0955, Per Protocol - for use [...] section and content) DATE CREATED AUTHOR 03/14/2018 [facility] DATE CREATED AUTHOR AUTHOR'S ORGANIZ ATION 05/30/2019 [facility] DATE CREATED AUTHOR AUTHOR'S ORGANIZ ATION 06/15/2021 [facility] DATE CREATED AUTHOR AUTHOR'S ORGANIZ ATION 03/23/2022 [facility] DATE CREATED AUTHOR AUTHOR'S ORGANIZ ATION 08/30/2022 [facility] DATE CREATED AUTHOR AUTHOR'S ORGANIZ ATION 09/10/2022 [facility] DATE CREATED AUTHOR AUTHOR'S ORGANIZ ATION 10/22/2022 [facility] DATE CREATED AUTHOR AUTHOR'S ORGANIZ ATION 02/01/2023 [facility] DATE CREATED AUTHOR AUTHOR'S ORGANIZ ATION 02/20/2023 [facility] DATE CREATED AUTHOR AUTHOR'S ORGANIZ ATION 10/11/2023 [facility] DATE CREATED AUTHOR AUTHOR'S ORGANIZ ATION 12/04/2023 [facility] EPIC Reason for Visit (unrecogniz ed section and [...] Comments Hand Pain seen earlier for fin masrhal amputation, having worsening pain. percocet at 1730. [...] Reason Comments Head Injury pt flipped his lawn mower sharpener on to himself and has questionable LOC. 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 Pt ambulatory with steady gait Reason Comments Back Pain Neck Pain Reason Comments Consult Establish Care, Foll ow up Heart Attack And Stroke 11/17/2020 Specialty Diagnoses / Procedures Referred By Yaneth thorne Referred To Contact Physical Therapist / Physical Therapy Diagnoses Unspecified fracture of third lumbar vertebra, initial encounter for closed fracture Unspecified fracture of second lumbar vertebra, initial encounter for closed fracture Procedures EVAL ONLY - pls do not treat or sched 30 VISITS MAX WITH AUTH 100% MEDICAID RATE EFFECT 05-16-2021 07-06-22 3:39 [facility] REF #[id number] [facility] [address] [place] [address] Pina Rudd PT Referral ID Status Reason Start Date Expiration Date Visits Re quested Visits Authorized [id number] Closed 07/13/2022 07/13/2023 1 1 Reason Comments [...] tabletIndications:Lumbar transverse process fracture, closed, initial encounter ([facility]) Take 1 tablet by mouth every 4 [...] Tue10/15/20 at 0911, For 1 dose, r 09 (Given - Provid er: Bernice Nguyen [...] mg (COMPLETED) 300 mg, Oral, ONCE, On Malini 06/18/21 at 1206, For 1 dose 1211 (Given [...] 0907 (New Bag - Prov ider: Carrie Guevara, RN)0926 (Stopped - Provider: Carrie Guevara RN) [...] ordered. 1543 (Given - Provid er: Asuncion Ray RN) Linked Groups Order Group 1: Saline lock [...] Inactive Member Role Status Dates Meng Mathews , Primary Care Provider Active Shereen Iyer Jr, MD Emergency Provider Active Huy Dumont MD Admit Provider Active Nano Gates MD Attending Provider Active Team Status: Inactive Member Role Status Dates Meng Mathews , Primary Care Provider Active Theresa Moon DO Attending Provider Active Manager [employer] Relationship Specialty Start Date End Date Reid, Meng Mark PCP - General Family Medicine 02/23/16 Manager [employer] Relationship Specialty Start Date End Date Reid, Meng Flores PCP - General Family Medicine 02/23/16 Manager [employer] Relationship Specialty Start Date End Date Reid, Meng Mark PCP - General Family Medicine 02/23/16 Manager [employer] Relationship Specialty Start Date End Date Reid, Meng Mark PCP - General Family Medicine 02/23/16 Manager [employer]ics Relationship Specialty Start Date End Date Reid, Meng Mark PCP - General Family Medicine 02/23/16 Manager [employer]olog[employer] Relationship Specialty Start Date End Date Reid, Meng Mark PCP - General Family Medicine 02/23/16 Manager [employer] Relationship Specialty Start Date End Date Reid, Meng Mark PCP - General Family Medicine 02/23/16 Manager [employer] Relationship Specialty Start Date End Date Reid, Meng Parsons, DO [address] [address] PCP - General 03/25/11 Shanthi Galvan PA-C [id number] [address] [place] Referring Team Neurology 10/10/21 Manager [employer] Relationship Specialty Start Date End Date Meng Mathews DO [address] [facility] [address] [place] [address] PCP - General 03/25/11 Shanthi Galvan PA-C [id number] [address] [place] Referring Team Neurology 10/10/21 Manager [employer] Relationship Specialty Start Date End Date Meng Mathews PCP - General Family Medicine 02/23/16 Manager [employer]ics Relationship Specialty Start Date End Date Evelin Kirkland, OTR/L [address] [place] [id number] Occupational Therapist Occupational Therapy 02/19/20 Lizandro De Luna MD [address] [place] [phone] Physician Infectious Diseases 02/19/20 Allyson Wyman MD [address] [place] [id number] Physician Orthopaedic Surgery 02/19/20 Manager [employer] Relationship Specialty Start Date End Date Meng Mathews DO [address] [place] [address] [address] [place] [id number] PCP - General 03/25/11 Shanthi Galvan PA-C [id number] [place] [address] [place] Referring Team Neurology 10/10/21 Manager [employer]ologics Relationship Specialty Start Date End Date Meng Mathews DO [address] [facility] [address] [place] [address] PCP - General 03/25/11 Shanthi Galvan PA-C [id number] [facility] [address] [place], [place] [id number] [place] Referring Team Neurology 10/10/21 Team Status: [...] Active Phoenix Chavez MD Attending Provider Active Manager Biologics Relationship Specialty Start Date End Date Evelin Kirkland, OTR/L [address] [place] [address] Occupational Therapist Occupational Therapy 02/19/20 Lizandro De Luna MD [address] [place], [place] [phone] Physician Infectious Diseases 02/19/20 Allyson Wyman MD [address] [place] [address] Physician Orthopaedic Surgery 02/19/20 Source Comments (unrecognize d section and content) In the event this informatio n is protected by the Federal Confidentiality of Alcohol and Drug Abuse Patient Records regulations: The Federal rules restrict any use of the information to criminally investigate or prosecute any alcohol or drug abuse patient.[facility] the event this information is protected by the Federal Confidentiality of Alcohol and Drug Abuse Patient Records regulations: The Federal rules restrict any use of the information to criminally investigate or prosecute any alcohol or drug abuse patient.[facility] the event this information is protected by the Federal Confidentiality of Alcohol and Drug Abuse Patient Records regulations: The Federal rules restrict any use of the information to criminally investigate or prosecute any alcohol or drug abuse patient.[facility] the event this information is protected by the Federal Confidentiality of Alcohol and Drug Abuse Patient Records regulations: The Federal rules restrict any use of the information to criminally investigate or prosecute any alcohol or drug abuse patient.[facility] Goals (unrecognized section and content) Goals may [...] BE BASED ON THE PRIMARY CLINICAL RECORDS. [facility]. provides no warranty or guarantee of the accuracy or completeness of information in this document.
[2024-04-24 18:39] LABS: Glucometer 133 mg/dL (74-106)
[2024-04-24 18:50] LABS: Hemoglobin 12.7 g/dL (14.0-18.0); Mean Corpuscular HGB Conc 35.3 g/dL (29.9-35.2); Mean Corpuscular Hemoglobin 30.9 pg (25.9-34.0); Mean Corpuscular Volume 87.6 fL (80.0-94.0); Mean Platelet Volume 11.9 fL (9.5-13.5); Platelet Count 156 10^3/uL (150-450); Red Blood Count 4.11 10^6/uL (4.70-6.10); Red Cell Distribution Width 13.7 % (11.0-15.0); White Blood Count 10.7 10^3/uL (4.0-11.0)
[2024-04-24 19:08] LABS: INR 1.06; Prothrombin Time 11.2 sec (9.0-11.6)
[2024-04-24 19:10] LABS: Ammonia 29 umol/L (11-32)
[2024-04-24 19:21] LABS: Acetaminophen 2.7 ug/mL (10.0-30.0); Basophils Abs Manual 0.21 10^3/uL (0.00-0.10); Eosinophils Absolute Manual 0.96 10^3/uL (0.00-0.70); Lymphocytes Absolute Manual 2.03 10^3/uL (1.20-3.80); Monocytes Absolute Manual 1.07 10^3/uL (0.30-0.80); Segmented Neut Absolute Manual 6.42 10^3/uL (1.4-6.5); Thyroid Stimulating Hormone 3.106 uIU/mL (0.358-3.740); Troponin I High Sensitivity 6.5 pg/mL (4.0-76.1)
[2024-04-24 19:24] LABS: Creatine Kinase 241 U/L (39-308)
[2024-04-24 19:34] LABS: Lactate/Lactic Acid 2.1 mmol/L (0.4-2.0)
--- NOTE | 2024-04-24 19:37 | PC.NURSE ---
Critical lab Lactic 2.1 Results verified.
[2024-04-24 19:43] LABS: Ethanol <3 mg/dL
[2024-04-24 20:22] LABS: ABG PCO2 40.6 mmHg (35.0-45.0); Base Excess ABG -0.1 mmol/L (-2.0-2.0); HCO3 ABG 24.8 mmol/L (22.0-26.0); PO2 ABG 74.3 mmHg (80.0-100.0); pH ABG 7.394 (7.350-7.450)
[2024-04-24 20:23] LABS: Allen Test POSITIVE (POSITIVE); O2 Mode ROOM AIR; Oxygen Saturation ABG 95.2 %; Puncture Site LR
[2024-04-24] MEDS: 0.9 % SODIUM CHLORIDE 1,000 ML 1000 ML IV (23:00)
[2024-04-24 23:21] LABS: Bilirubin Urine NEGATIVE (NEGATIVE); Blood Urine NEGATIVE (NEGATIVE); Clarity Urine CLEAR (CLEAR); Color Urine LT. YELLOW (YELLOW); Glucose Urine UA NEGATIVE (NEGATIVE); Ketones Urine NEGATIVE (NEGATIVE); Leukocyte Esterase Urine NEGATIVE (NEGATIVE); Nitrite Urine NEGATIVE (NEGATIVE); Protein Urine NEGATIVE (NEG/TRACE); Specific Gravity Urine <=1.005 (1.005-1.025); Urobilinogen Urine 0.2 EU/dL (0.2-1.0); pH Urine 6.5 (5.0-9.0)
[2024-04-24 23:22] LABS: Urine Microscopic Indicated NO
[2024-04-24 23:44] LABS: Amphetamine Screen Urine NEGATIVE (NEGATIVE); Barbiturates Screen Urine NEGATIVE (NEGATIVE); Benzodiazepines Screen Urine POSITIVE (NEGATIVE); Buprenorphine Screen Urine NEGATIVE (NEGATIVE); Cannabinoid Screen Urine NEGATIVE (NEGATIVE); Cocaine Screen Urine NEGATIVE (NEGATIVE); Methadone Screen Urine NEGATIVE (NEGATIVE); Methamphetamines Screen Urine NEGATIVE (NEGATIVE); Opiate Screen Urine NEGATIVE (NEGATIVE); Oxycodone Screen Urine NEGATIVE (NEGATIVE); Phencyclidine Screen Urine NEGATIVE (NEGATIVE); Tricyclic Antidepressant Urine NEGATIVE (NEGATIVE)
[2024-04-25] VITALS (31 sets, daily range): BP systolic 94–129; BP diastolic 55–77; PULSE 50–62; TEMP 36.6–36.8; O2SAT 84–99
[2024-04-25 00:14] LABS: Lactate/Lactic Acid 2.2 mmol/L (0.4-2.0)
[2024-04-25] MEDS: LORAZEPAM 2 MG/ML VIAL IV (01:25)
--- NOTE | 2024-04-25 01:39 | PC.NURSE ---
At 0050, health technical writer pressed on pt's thumbnail with the covered end of a pen. Pt responded what after health technical writer spoke his name. No further response was made.
--- NOTE | 2024-04-25 01:42 | PC.NURSE ---
Pt OOB. Still attached to monitor and IVFs. He does not make eye contact and does not respond to commands to get back in bed. Continues to walk through staff and fight when attempts where made to place him back to bed. He is quite tall and is strong in all 4 extremities. It took 4 staff members to put him back in the bed. He continues to attempt to get OOB. Leather restraints x 4 extremities applied. Received order from
--- NOTE | 2024-04-25 02:32 | PC.NURSE ---
Direct Support Professional has called 5 different transport companies. All state there is no availability tonight, however, [facility] states they may have ability to transfer in the AM. Further state that we should call at 0700 today to re-check.
[2024-04-25] MEDS: LORAZEPAM 2 MG/ML VIAL IM (03:28)
[2024-04-25] MEDS: HALOPERIDOL LACTATE 5 MG/ML VIAL 3 MG IM (03:29)
[2024-04-25] MEDS: DIPHENHYDRAMINE HCL 50 MG/ML VIAL 25 MG IM (03:30)
--- NOTE | 2024-04-25 03:45 | PC.NURSE ---
At 0330, leather restraints were D/C'ed and soft restraints applied to all 4 extremities. Pt tolerated this well.
--- NOTE | 2024-04-25 03:47 | PC.NURSE ---
By 0340, restraints were D/C'ed. Pt is asleep, with SO at the bedside.
--- NOTE | 2024-04-25 04:14 | PC.NURSE ---
On 04/24/24 at 2310, lab called with a critical Lactic acid of 2.2. Immediately reported to Dr. Limon. Verbally read back and acknowledged. NNO received.
--- NOTE | 2024-04-25 05:53 | PC.NURSE ---
Unable to apply clinical research monitor. Pt begins to awaken and pulls the leads off. MD aware. Pt does not disturb the BP cuff, ear probe for SPO2, and NC.
--- NOTE | 2024-04-25 07:11 | PC.NURSE ---
Called to room per SO. Pt is awake and oriented to person. He is conversive with clear speech. Report and update given to [facility] ICU.
--- NOTE | 2024-04-25 09:05 | PC.NURSE ---
bedside report given to [facility] staff at this time. previous nurse called report to [facility] at shift change
== END 2024-04-25 09:16 | disposition short-term general hospital (02) ==
PROVIDERS: Emergency Medicine; Emergency Provider Emergency Medicine; PCP Family Medicine
DX: R41.82 Altered mental status, unspecified (principal); R00.1 Bradycardia, unspecified; R45.1 Restlessness and agitation; Z98.84 Bariatric surgery status; F17.200 Nicotine dependence, unspecified, uncomplicated; Z85.028 Personal history of other malignant neoplasm of stomach; Z94.84 Stem cells transplant status
CPT/HCPCS: 36415; 36600; 70450; 71045; 80307; 80320; 80329; 81003; 82140; 82550; 82805; 83605; 84443; 84484; 85007; 85027; 85610; 93005; 96361; 96372; 96374; 99285; J1200; J1630; J2060

== ENCOUNTER 2024-07-18 14:35 | Emergency (ER) | payer OTHER, SELFPAY ==
[2024-07-18 14:40] VITALS: BP 153/83; PULSE 79; TEMP 36.8; O2SAT 97; BMI 28.3
--- NOTE | 2024-07-18 15:09 | ED.GENADUL1 ---
HPI HPI - General Adult General Chief complaint: Back Pain/Injury Stated complaint: BACK PAIN - FALL Time Seen by Provider: 07/18/24 14:37 Source: patient Mode of arrival: walk-in Limitations: no limitations History of Present Illness HPI narrative: Patient presents to ED complaining of back pain. He said he was stepping up into his truck and his right foot was on the running board in his left foot slid on the ground and he fell backwards. He said he scraped his back in the door jam and then landed on his lower back and buttock. He has a history of multiple back surgeries in the past and said he chronically deals with some neuropathy and tingling in his feet. He said that has not gotten any worse. No loss of bowel or bladder habits no urinary retention. He denies any new numbness or tingling in the feet or legs. He just reports tailbone pain lumbar spine pain and mild thoracic pain. He does have an abrasion on the thoracic spine. He denied hitting his head denied loss of consciousness. No other complaints at this time. Related Data Home Medications ?Medication ?Instructions ?Recorded ?Confirmed alprazolam 2 mg tablet mg 04/13/23 atorvastatin 80 mg tablet mg 04/13/23 diltiazem HCl 120 mg tablet mg 04/13/23 multivitamin with folic acid 400 tab PO 04/13/23 mcg tablet (Tab-A-Brennan) pregabalin 50 mg capsule mg 04/13/23 sucralfate 1 gram tablet 04/13/23 tadalafil 5 mg tablet mg 04/13/23 Previous Rx's ?Medication ?Instructions ?Recorded furosemide 40 mg tablet (Lasix) 40 mg PO DAILY #7 tabs 04/13/23 potassium chloride 20 mEq 20 meq PO DAILY #7 tabs 04/13/23 tablet,extended release(part/cryst) acetaminophen 300 mg-codeine 30 mg 1 tab PO Q6H PRN pain 5 days #20 11/13/23 tablet tabs ibuprofen 800 mg tablet 800 mg PO Q8H PRN pain #20 tabs 11/13/23 oxycodone-acetaminophen 5 mg-325 1 tab PO Q6H PRN pain #14 tabs 07/18/25 mg tablet (Percocet) Allergies Allergy/AdvReac Type Severity Reaction Status Date / Time Sulfa (Sulfonamide Allergy Intermediate Verified 11/13/23 11:32 Antibiotics) NSAIDS (Non-Steroidal AdvReac Mild Verified 11/13/23 11:32 Anti-Inflamma bactrim Allergy Intermediate Uncoded 11/13/23 11:32 cecor Allergy Intermediate Uncoded 11/13/23 11:32 Opioid HPI Opioid Management Most Recent Opioid Data: Last Pain Scale 9 07/18/24 16:35 07/18/24 Last MAR Pain Assessment 07/18/24 16:35 Ur Phencyclidine Scrn Negative (NEGATIVE) 04/24/24 22:52 04/24/24 Review of Systems ROS Status of ROS 10 or more systems reviewed and unremarkable except as noted in history and below PFSH PFSH Social History Smoking status: Current every day smoker Little interest or pleasure in doing things: not at all Feeling down, depressed, or hopeless: not at all Exam Narrative Exam Narrative: General: alert, no acute distress Cardiovascular: regular rate and rhythm, normal peripheral perfusion. Respiratory: Lungs CTA, respirations non labored. Abdomen soft nontender nondistended Extremities: no deformity, no trauma. 5 out of 5 muscle strength x 4 extremities normal sensation Abrasion on the right side of the back in the lower thoracic upper lumbar area. Tenderness to palpation in the lumbosacral area midline. Neurological: oriented x 4, LOC appropriate for age. Constitutional Vital Signs, click to edit/add: Last Vital Signs Temp 98.2 F 07/18/24 14:40 Pulse 79 07/18/24 14:40 Resp 18 07/18/24 14:40 BP 153/83 H 07/18/24 14:40 Pulse Ox 97 07/18/24 14:40 O2 Del Method Room Air 07/18/24 14:40 Course Vital Signs Vital signs: Vital Signs Temperature 98.2 F 07/18/24 14:40 Pulse Rate 79 07/18/24 14:40 Respiratory Rate 18 07/18/24 14:40 Blood Pressure 153/83 H 07/18/24 14:40 Pulse Oximetry 97 07/18/24 14:40 Oxygen Delivery Method Room Air 07/18/24 14:40 Temperature 98.2 F 07/18/24 14:40 Pulse Rate 79 07/18/24 14:40 Respiratory Rate 18 07/18/24 14:40 Blood Pressure 153/83 H 07/18/24 14:40 Pulse Oximetry 97 07/18/24 14:40 Oxygen Delivery Method Room Air 07/18/24 14:40 Medical Decision Making MDM Narrative Medical decision making narrative: Patient CT scan shows a transverse process fracture on the right at L4. This is consistent with his pain and mechanism of injury. Patient states he has had fractures in the past and already has an LSO brace at home. He does not have a neurosurgeon that he follows with anymore. He has no neurological deficits and no other acute findings on CT. This can be managed outpatient. Patient was instructed to use his brace at home for comfort and follow-up with neurosurgery. I did give him a referral to Dr. Chavez. Return to ED if worsening symptoms otherwise follow-up outpatient with family doctor and/or neurosurgery. Patient expresses understanding and is comfortable with care plan for home. Differential Diagnosis Differential Diagnosis: Fracture sprain strain contusion abrasion Imaging Data CT scan - abdomen: Attestation: I have reviewed the pertinent imaging results. Discharge Plan Discharge Chief Complaint: Back Pain/Injury Clinical Impression: Fracture of transverse process of lumbar vertebra Patient Disposition: Home, Self-Care Time of Disposition Decision: 16:20 Condition: Good Mode of Transportation: Private Vehicle Prescriptions / Home Meds: New oxycodone-acetaminophen [Percocet] 5-325 mg tablet 1 tab PO Q6H PRN (Reason: pain) Qty: 14 0RF No Action atorvastatin 80 mg tablet sucralfate 1 gram tablet diltiazem HCl 120 mg tablet alprazolam 2 mg tablet tadalafil 5 mg tablet pregabalin 50 mg capsule multivitamin with folic acid [Tab-A-Brennan] 400 mcg tablet PO furosemide [Lasix] 40 mg tablet 40 mg PO DAILY Qty: 7 0RF potassium chloride 20 mEq tablet,ER particles/crystals 20 meq PO DAILY Qty: 7 0RF acetaminophen-codeine 300-30 mg tablet 1 tab PO Q6H PRN (Reason: pain) 5 Days Qty: 20 0RF ibuprofen 800 mg tablet 800 mg PO Q8H PRN (Reason: pain) Qty: 20 0RF Print Language: Jordanian Instructions: Transverse Process Fracture (ED) Referrals: THONY CHAVEZ [Physician] - 1 week MENG CARDENAS [Primary Care Provider] - 1 week
[2024-07-18] MEDS: HYDROMORPHONE HCL 1 MG/ML CARTRIDGE IM (16:35)
== END 2024-07-18 16:53 | disposition home or self-care (01) ==
PROVIDERS: Emergency Provider Emergency Medicine; PCP Family Medicine
DX: S32.048A Other fracture of fourth lumbar vertebra, initial encounter for closed fracture (principal); W17.89XA Other fall from one level to another, initial encounter; S20.419A Abrasion of unspecified back wall of thorax, initial encounter; F17.200 Nicotine dependence, unspecified, uncomplicated
CPT/HCPCS: 72128; 72131; 96372; 99285; J1171

== ENCOUNTER 2024-08-30 12:24 | Emergency (ER) | payer OTHER, SELFPAY ==
[2024-08-30 12:32] VITALS: BP 147/99; PULSE 65; TEMP 37; O2SAT 98; BMI 30.2
--- NOTE | 2024-08-30 12:42 | ED.GENADUL1 ---
HPI HPI - General Adult General Chief complaint: Skin/Abscess/Foreign Body Stated complaint: HEADACHE SWOLLEN R SIDE Time Seen by Provider: 08/30/24 12:28 Source: patient Mode of arrival: walk-in Limitations: no limitations History of Present Illness HPI narrative: 49-year-old male presents to the emergency department because of a red slightly swollen area just to the right of his nose. This started 2 days ago. Within the last week he had some bumps behind his right ear which broke open and some pus came out. He states he is prone to skin infections and often gets them in his groin area. No fever or drainage or trauma to this area Related Data Home Medications ?Medication ?Instructions ?Recorded ?Confirmed alprazolam 2 mg tablet mg 04/13/23 atorvastatin 80 mg tablet mg 04/13/23 diltiazem HCl 120 mg tablet mg 04/13/23 multivitamin with folic acid 400 tab PO 04/13/23 mcg tablet (Tab-A-Brennan) pregabalin 50 mg capsule mg 04/13/23 sucralfate 1 gram tablet 04/13/23 tadalafil 5 mg tablet mg 04/13/23 Previous Rx's ?Medication ?Instructions ?Recorded furosemide 40 mg tablet (Lasix) 40 mg PO DAILY #7 tabs 04/13/23 potassium chloride 20 mEq 20 meq PO DAILY #7 tabs 04/13/23 tablet,extended release(part/cryst) acetaminophen 300 mg-codeine 30 mg 1 tab PO Q6H PRN pain 5 days #20 11/13/23 tablet tabs ibuprofen 800 mg tablet 800 mg PO Q8H PRN pain #20 tabs 11/13/23 oxycodone-acetaminophen 5 mg-325 1 tab PO Q6H PRN pain #14 tabs 07/18/24 mg tablet (Percocet) clindamycin HCl 300 mg capsule 300 mg PO Q6H 10 days #40 caps 08/30/24 Allergies Allergy/AdvReac Type Severity Reaction Status Date / Time Sulfa (Sulfonamide Allergy Intermediate Blister Verified 08/30/24 12:35 Antibiotics) cefaclor (From Ceclor) Allergy Blister Verified 08/30/24 12:35 NSAIDS (Non-Steroidal AdvReac Mild Blister Verified 08/30/24 12:35 Anti-Inflamma Opioid HPI Opioid Management Most Recent Opioid Data: Last Pain Scale 9 07/18/24 16:35 07/18/24 Ur Phencyclidine Scrn Negative (NEGATIVE) 04/24/24 22:52 04/24/24 Review of Systems ROS Narrative A ten point review of systems is negative except as noted above. PFSH PFSH Social History Smoking status: Current every day smoker Little interest or pleasure in doing things: not at all Feeling down, depressed, or hopeless: not at all Exam Narrative Exam Narrative: Nurses note and vital signs reviewed and patient is not hypoxic. General: The patient appears well and in no apparent distress. Patient is resting comfortably on cart. Skin: Warm, dry, no pallor noted. There is no rash noted. Head: Normocephalic, atraumatic; he has an erythematous area with mild swelling adjacent to the right side of his nose. There is no fluctuance or open area. The erythema is approximately 2 cm in diameter Eye: Normal conjunctiva, no drainage Ears, Nose, Mouth, and Throat: oral mucosa is moist. Nares patent. Cardiovascular: Regular Rate and Rhythm Respiratory: Patient is in no distress, no accessory muscle use Back: non-tender GI: Soft and nontender Musculoskeletal: The patient has no evidence of calf tenderness, no pitting edema, symmetrical pulses noted bilaterally Neurological: A&O, normal speech Psychiatric: Cooperative Constitutional Vital Signs, click to edit/add: Last Vital Signs Temp 98.6 F 08/30/24 12:32 Pulse 65 08/30/24 12:32 Resp 18 08/30/24 12:32 BP 147/99 H 08/30/24 12:32 Pulse Ox 98 08/30/24 12:32 O2 Del Method Room Air 08/30/24 12:32 Course Vital Signs Vital signs: Vital Signs Temperature 98.6 F 08/30/24 12:32 Pulse Rate 65 08/30/24 12:32 Respiratory Rate 18 08/30/24 12:32 Blood Pressure 147/99 H 08/30/24 12:32 Pulse Oximetry 98 08/30/24 12:32 Oxygen Delivery Method Room Air 08/30/24 12:32 Temperature 98.6 F 08/30/24 12:32 Pulse Rate 65 08/30/24 12:32 Respiratory Rate 18 08/30/24 12:32 Blood Pressure 147/99 H 08/30/24 12:32 Pulse Oximetry 98 08/30/24 12:32 Oxygen Delivery Method Room Air 08/30/24 12:32 Medical Decision Making MDM Narrative Medical decision making narrative: My clinical impression is that he has mild cellulitis. Due to allergies he will be placed on clindamycin. Treatment diagnosis and follow-up were discussed with the patient. He was given referral to general surgery for follow-up if there is no improvement. At this point I do not suspect an abscess. Differential Diagnosis Differential Diagnosis: Cellulitis, abscess Discharge Plan Discharge Chief Complaint: Skin/Abscess/Foreign Body Clinical Impression: Cellulitis Patient Disposition: Home, Self-Care Time of Disposition Decision: 12:38 Condition: Good Mode of Transportation: Private Vehicle Prescriptions / Home Meds: New clindamycin HCl 300 mg capsule 300 mg PO Q6H 10 Days Qty: 40 0RF No Action atorvastatin 80 mg tablet sucralfate 1 gram tablet diltiazem HCl 120 mg tablet alprazolam 2 mg tablet tadalafil 5 mg tablet pregabalin 50 mg capsule multivitamin with folic acid [Tab-A-Brennan] 400 mcg tablet PO furosemide [Lasix] 40 mg tablet 40 mg PO DAILY Qty: 7 0RF potassium chloride 20 mEq tablet,ER particles/crystals 20 meq PO DAILY Qty: 7 0RF acetaminophen-codeine 300-30 mg tablet 1 tab PO Q6H PRN (Reason: pain) 5 Days Qty: 20 0RF ibuprofen 800 mg tablet 800 mg PO Q8H PRN (Reason: pain) Qty: 20 0RF oxycodone-acetaminophen [Percocet] 5-325 mg tablet 1 tab PO Q6H PRN (Reason: pain) Qty: 14 0RF Print Language: Ecuadorean Instructions: Cellulitis (ED), Warm Compress or Soak (ED) Referrals: Allen Putnam MD [Physician] - 1 week MENG CARDENAS [Primary Care Provider] - 1 week
== END 2024-08-30 12:48 | disposition home or self-care (01) ==
PROVIDERS: Emergency Provider Emergency Medicine; PCP Family Medicine
DX: L03.211 Cellulitis of face (principal); F17.200 Nicotine dependence, unspecified, uncomplicated
CPT/HCPCS: 99283